=== PATIENT | female | born 1945 | race Caucasian/White ===

== ENCOUNTER 2022-12-13 08:29 | Day surgery (SDC) | payer MEDICARE, MEDICAID, SELFPAY ==
--- NOTE | 2022-12-12 10:54 | WPDANESEPPF ---
Anes - Initial Pre Proc Eval Procedure: Operation Date: 12/13/22 10:00 Proposed Procedures p Screening Colonoscopy - Butch Dumas MD Date/Time: 12/12/22 10:54 Surgeon: Butch Dumas MD Pre Op Diagnosis: Neoplasm Screening Patient Data Age: 77 Gender: F Height: 1.63 m Weight: 71.5 kg Allergies Allergy/AdvReac Type Severity Reaction Status Date / Time Penicillins Allergy Mild Unknown Verified 12/13/22 08:53 pentazocine Allergy Mild Unknown Verified 12/13/22 08:53 albuterol Allergy syncope Verified 12/13/22 08:53 aspirin Allergy Swelling Verified 12/13/22 08:53 codeine Allergy Numbness Verified 12/13/22 08:53 ibuprofen Allergy GI upset Verified 12/13/22 08:53 Sulfa (Sulfonamide Allergy Unknown Verified 12/13/22 08:53 Antibiotics) peniillin Allergy Swelling Uncoded 12/13/22 08:53 Home Medications Medication Instructions Recorded Confirmed Type magnesium oxide 400 mg PO DAILY #90 caps 11/08/22 12/13/22 Rx Acidophilus 1 pill BYMOUTH BID 11/14/22 12/13/22 History [place] XL 300 mg BYMOUTH DAILY 11/14/22 12/13/22 History cholestyramine (with sugar) 4 gram 1 ea PO BID 11/14/22 12/13/22 History powder for susp in a packet metoprolol tartrate 25 mg tablet 12.5 mg PO BID #90 tabs 11/14/22 12/13/22 Rx apixaban 5 mg tablet (Eliquis) 5 mg PO BID #60 tabs 11/20/22 12/13/22 Rx fidaxomicin 200 mg tablet See Rx Instructions PO Q12H 11/21/22 12/13/22 History insulin glargine 100 unit/mL (3 40 unit subcut QPM 11/21/22 12/13/22 History mL) subcutaneous pen coffee extract 100 mg-phosphatidyl 1 cap PO DAILY 11/28/22 12/13/22 History serine 100 mg capsule (Neuriva Original) amlodipine 5 mg tablet 5 mg PO DAILY #30 tabs 12/03/22 12/13/22 Rx clopidogrel 75 mg tablet (Plavix) 75 mg PO DAILY #30 tabs 12/03/22 12/13/22 Rx pravastatin 40 mg tablet 40 mg PO DAILY 30 days #30 tabs 12/03/22 12/13/22 Rx venlafaxine 75 mg capsule,extended 75 mg PO DAILY #90 caps 12/04/22 12/13/22 Rx release 24 hr glipizide 5 mg tablet See Rx Instructions PO DAILY #90 12/05/22 12/13/22 Rx tabs fluconazole 150 mg tablet 150 mg PO ONCE #2 tabs 12/07/22 12/13/22 Rx (Diflucan) Patient hx anesthesia problems: none Family hx anesthesia problems: none Results Review: All pre-operative results and documents have been reviewed as part of the pre-operative evaluation. [facility] Past Medical History Medical History (Updated 12/12/22 @ 10:57 by Maxime Mei DO) Acid reflux Anxiety Arthritis Chronic headaches Diabetes HTN (hypertension) Hypomagnesemia Mini stroke (~2012) Screening for colon cancer TIA (transient ischemic attack) 2012 Surgical History Surgical History H/O: hysterectomy (~1979) Family History Family History Father Hypertension Mother Breast cancer Social History Social History Smoking status: Former smoker Tobacco type: cigarettes Additional smoking assessment comments: quit smoking about 30 years ago Alcohol intake: current Alcohol use details: very rarely Substance use: never Substance use type: does not use Lack of Transportation: No Lack of Food: Never True Current Housing: I Have Housing Concerned About Future Housing: No Difficulty Paying Gas/Electric Bills: No Difficulty Paying for Meds: No Currently Unemployed: No Difficulty w/ Childcare or Family Care: No Living arrangements: alone Occupation/Education: retired Gender identity (if verbalized by the patient): Female Spiritual care concerns: No Agree to blood products: Yes Anes - [place] Final PreProcedure Day of Procedure 12/12/22 10:54 Patient weight: overweight Heart: regular rate and rhythm Lungs: clear to auscultation Airway: Mallampati scale class II Neurological: alert and oriented Last oral intake: >/= 8 ho
[2022-12-13 09:04] VITALS: BP 110/59; PULSE 93; RESP 18; TEMP 36.8; O2SAT 99
--- NOTE | 2022-12-13 09:17 | PM.HPGS ---
History of Present Illness History of Present Illness Consent: Risks, benefits, and alternatives have been discussed and questions answered. Patient agrees to proceed with procedure. Chief complaint: Neoplasm Screening Narrative: Ailyn Neff is a 77 year old female Referred by primary care service for screening colonoscopy . Patient gives a history of moving to this area in June of 2022. Since that time she has been hospitalized 6 or 7 times. Patient reports that in August she developed diverticulitis and was hospitalized at [facility] in [place]. She was treated with antibiotics. She subsequently was readmitted the hospital 2 weeks later with C difficile colitis. This subsequently relapsed and she was hospitalized once again. Subsequent to this she was identified as having a pulmonary embolus. Patient now is on Eliquis anticoagulation. The patient presents today for screening exam because of her history of diverticulitis. Patient reports her bowel habits have been back to normal and she has felt back to her baseline over the last 3 weeks. History is noncontributory.. Review of Systems Review of Systems: Review of systems noncontributory. [facility] Past Medical History Medical History (Updated 12/12/22 @ 10:57 by Maxime Mei, ) Acid reflux Anxiety Arthritis Chronic headaches Diabetes HTN (hypertension) Hypomagnesemia Mini stroke (~2012) Screening for colon cancer TIA (transient ischemic attack) 2012 Surgical History Surgical History H/O: hysterectomy (~1979) Family History Family History Father Hypertension Mother Breast cancer Social History Social History Smoking status: Former smoker Tobacco type: cigarettes Additional smoking assessment comments: quit smoking about 30 years ago Alcohol intake: current Alcohol use details: very rarely Substance use: never Substance use type: does not use Lack of Transportation: No Lack of Food: Never True Current Housing: I Have Housing Concerned About Future Housing: No Difficulty Paying Gas/Electric Bills: No Difficulty Paying for Meds: No Currently Unemployed: No Difficulty w/ Childcare or Family Care: No Living arrangements: alone Occupation/Education: retired Gender identity (if verbalized by the patient): Female Spiritual care concerns: No Agree to blood products: Yes Meds Home Medications and Allergies Home Medications Medication Instructions Recorded Confirmed Type magnesium oxide 400 mg PO DAILY #90 caps 11/08/22 12/13/22 Rx Acidophilus 1 pill BYMOUTH BID 11/14/22 12/13/22 History [place] XL 300 mg BYMOUTH DAILY 11/14/22 12/13/22 History cholestyramine (with sugar) 4 gram 1 ea PO BID 11/14/22 12/13/22 History powder for susp in a packet metoprolol tartrate 25 mg tablet 12.5 mg PO BID #90 tabs 11/14/22 12/13/22 Rx apixaban 5 mg tablet (Eliquis) 5 mg PO BID #60 tabs 11/20/22 12/13/22 Rx fidaxomicin 200 mg tablet See Rx Instructions PO Q12H 11/21/22 12/13/22 History insulin glargine 100 unit/mL (3 40 unit subcut QPM 11/21/22 12/13/22 History mL) subcutaneous pen coffee extract 100 mg-phosphatidyl 1 cap PO DAILY 11/28/22 12/13/22 History serine 100 mg capsule (Neuriva Original) amlodipine 5 mg tablet 5 mg PO DAILY #30 tabs 12/03/22 12/13/22 Rx clopidogrel 75 mg tablet (Plavix) 75 mg PO DAILY #30 tabs 12/03/22 12/13/22 Rx pravastatin 40 mg tablet 40 mg PO DAILY 30 days #30 tabs 12/03/22 12/13/22 Rx venlafaxine 75 mg capsule,extended 75 mg PO DAILY #90 caps 12/04/22 12/13/22 Rx release 24 hr glipizide 5 mg tablet See Rx Instructions PO DAILY #90 12/05/22 12/13/22 Rx tabs fluconazole 150 mg tablet 150 mg PO ONCE #2 tabs 12/07/22 12/13/22 Rx (Diflucan) Allergies Allergy/AdvReac Type
[2022-12-13] MEDS: LACTATED RINGERS 1,000 ML 150 ML IV CONT (09:27)
[2022-12-13 09:33] LABS: Glucose Point of Care 130 mg/dl (65-105)
[2022-12-13 10:20] VITALS: BP 82/53; PULSE 82; RESP 16; O2SAT 92
[2022-12-13 10:30] VITALS: BP 108/64; PULSE 81; RESP 18; O2SAT 98
[2022-12-13 10:40] VITALS: BP 100/78; PULSE 78; RESP 18; O2SAT 100
--- NOTE | 2022-12-13 11:07 | SUR.PHASEII ---
LATE NOTE, 1021; PT ARRIVED INTO OP WITH DR EL. PT COUGHING, LARGE AMT CLEAR SECRETIONS FROM NOSE AND MOUTH. PT SLEEPY. PT ORAL SUCTIONED. DAUGHTER AT BEDSIDE. 1030; PT AWAKE. DRINKING APPLE JUICE. OCCASIONAL COUGH. VERY LITTLE SECRETIONS NOW. PT STATES EVERY TIME I HAVE ANESTHESIA I WAKE UP WITH A COUGH AND LOTS OF CLEAR SPUTUM . DR EL AWARE. 1100; PT AWAKE AND ALERT. NO LONGER COUGHING. READY FOR DISCHARGE
--- NOTE | 2022-12-13 12:35 | WPDANESPN ---
Anes - Prog Note Post-Op Date/Time: 12/13/22 12:35 Cardiovascular status: normal Respiratory status: normal Airway patency: baseline Mental status: baseline Post-Op hydration status: normal Vital Signs: Last Vital Signs Temp 36.8 C 12/13/22 09:04 Pulse 78 12/13/22 10:40 Resp 18 12/13/22 10:40 BP 100/78 12/13/22 10:40 Pulse Ox 100 12/13/22 10:40 O2 Del Method Room Air 12/13/22 10:40 Pain Score (VAS): 0 I/O: Intake & Output 12/12/22 12/13/22 12/13/22 23:59 07:59 15:59 Intake Total 300 Balance 300 12/13/22 09:30 POC Capillary Glucose 130 H Post-procedural complaints: none Patient Feedback: Patient satisfied with anesthetic care. Other Findings: Patient vital signs back to baseline. Patient denies nausea and vomiting. Patient's pain under control. Patient OK for discharge.
== END 2022-12-13 11:07 | disposition home or self-care (01) ==
PROVIDERS: PCP Physician Assistant Medical; Visit Provider Internal Medicine Gastroenterology
PROC: 0DJD8ZZ Inspection of Lower Intestinal Tract, Via Natural or Artificial Opening Endoscopic (ICD-10-PCS; CPT 45378; principal; 2022-12-13 10:00)
DX: Z12.11 Encounter for screening for malignant neoplasm of colon (principal); K57.30 Diverticulosis of large intestine without perforation or abscess without bleeding; K64.8 Other hemorrhoids
CPT/HCPCS: 45378

== ENCOUNTER 2024-09-09 09:59 | Outpatient (CLI) | payer MEDICARE, SELFPAY ==
--- NOTE | ~2024-09-09 | XR_ITS ---
XR abdomen/kub 1V Ordering provider: Jamaica Daly APRN History: . fecal incontinance . Comparison: None. FINDINGS: BOWEL: Fecal material is loaded in the colon. Nonobstructive bowel gas pattern. ORGANOMEGALY: None. SIGNIFICANT PATHOLOGIC CALCIFICATIONS: None. OTHER: No free air is seen under the diaphragm. IMPRESSION: NO ACUTE ABDOMINAL FINDINGS. Constipation. Reviewed, dictated and finalized at location A.
--- OUTSIDE RECORDS SUMMARY | 2024-09-09 10:42 | XMS_ITS | Clinical Summary ---
Author Organization [facility] Care Team Providers Care Hearing Specialist Name Role Phone Unavailable Primary Care Provider Unavailabl e Social History Tobacco Use Types Packs/Day Years Used Date Smoking Tobacco: Never Assessed Comments Unknown Sex and Gender Information Value Date Recorded Sex Assigned at Not on file Legal Sex Female 11:31 PM CDT Gender Identity Not on file Sexual Orientation Not on file Plan of Treatment Not on file
--- OUTSIDE RECORDS SUMMARY | 2024-09-09 10:42 | XMS_ITS | Continuity of Care Document ---
Author Organization [facility] [facility] Serv ices Address [address] [place] [address] Phone Care Team Providers Care Assorter Laundry Name Role Phone Samuel FITZGERALD, Ranjith Unavailable Unavailable Allergies, Adverse Reactions, Alerts Substance Reaction Status Criticality CIPROFLOXACIN HCL Hives/Skin Rash Active No Info rmation ciprofloxacin Hives/Skin Rash Active No Informat ion Sulfa (Sulfonamide Antibiotics) Active No Information albuterol passes out Active No Information ibuprofen upset stomach Active No Information codeine numbness Active No Information aspirin swells up Active No Information Penicillins swells up, hives Active No Informat ion Medications Medication Instructions Dosage Effective Dates (start - stop) Status Comments ondansetron HCl 4 mg tablet take 1 tablet by oral route 3 times every day as needed for NAUSEA 4 MG - Active Coricidin HBP Cold and Flu 2 mg-325 mg tablet TAKE ONE TAB BID X 3-5 DAYS, THEN ONE TAB Q 12 HRS PRN - Active mupirocin 2 % topical ointment apply by topical route 2 times every day a small amount to the affected area Not Available - Active chlorhexidine gluconate 4 % topical liquid APPLY TO SCALP LESIONS, LATHER, RINSE DAILY - Active Xanax 0.5 mg tablet take 1 tablet by oral route 2 times every day as needed for ANXIETY 0.5 MG - Active Plavix 75 mg tablet Take 1 tablet by mouth once daily - Active venlafaxine ER 225 mg tablet,extended release 24 hr TAKE 1 TABLET BY MOUTH ONCE DAILY IN THE MORNING AT THE SAME TIME EACH DAY WITH FOOD - Active Pravastatin Sodium 40 MG Oral Tablet Take 1 tablet by mouth once daily - Active losartan 50 mg tablet take 1 tablet by oral route every day 50 MG - Active TRULICITY (unknown strength) inject by subcutaneous route every week Not Available - Active Vitamin D3 25 mcg (1,000 unit) capsule - Active Procedures Procedure Date Rapid COVID OFFICE/OUTPATIENT VISIT, EST URINALYSIS NONAUTO W/O SCOPE OFFICE/OUTPATIENT VISIT, EST OFFICE/OUTPATIENT VISIT, EST URINALYSIS NONAUTO W/O SCOPE URINALYSIS NONAUTO W/O SCOPE OFFICE/OUTPATIENT VISIT, EST OFFICE/OUTPATIENT VISIT, EST URINALYSIS NONAUTO W/O SCOPE Rapid COVID OFFICE/OUTPATIENT VISIT, EST OFFICE/OUTPATIENT VISIT, EST Ketorolac tromethamine inj THER/PROPH/DIAG INJ, SC/IM OFFICE/OUTPATIENT VISIT, EST NURSING FACILITY CARE, INIT OFFICE/OUTPATIENT VISIT, EST OFFICE/OUTPATIENT VISIT, EST Rapid COVID RAPID STREP OFFICE/OUTPATIENT VISIT, EST OFFICE/OUTPATIENT VISIT, EST OFFICE/OUTPATIENT VISIT, EST OFFICE/OUTPATIENT VISIT, EST OFFICE/OUTPATIENT VISIT, EST OFFICE/OUTPATIENT VISIT, EST OFFICE/OUTPATIENT VISIT, EST OFFICE/OUTPATIENT VISIT, EST OFFICE/OUTPATIENT VISIT, EST OFFICE/OUTPATIENT VISIT, EST OFFICE/OUTPATIENT VISIT, EST OFFICE/OUTPATIENT VISIT, EST OFFICE/OUTPATIENT VISIT, EST OFFICE/OUTPATIENT VISIT, EST OFFICE/OUTPATIENT VISIT, EST OFFICE/OUTPATIENT VISIT, EST OFFICE/OUTPATIENT VISIT, EST OFFICE/OUTPATIENT VISIT, EST OFFICE/OUTPATIENT VISIT, EST OFFICE/OUTPATIENT VISIT, EST OFFICE/OUTPATIENT VISIT, EST URINALYSIS NONAUTO W/O SCOPE OFFICE/OUTPATIENT VISIT, EST OFFICE/OUTPATIENT VISIT, EST URINALYSIS NONAUTO W/O SCOPE URINALYSIS NONAUTO W/O SCOPE OFFICE/OUTPATIENT VISIT, EST OFFICE/OUTPATIENT VISIT, EST OFFICE/OUTPATIENT VISIT, EST OFFICE/OUTPATIENT VISIT, EST OFFICE/OUTPATIENT VISIT, EST OFFICE/OUTPATIENT VISIT, EST OFFICE/OUTPATIENT VISIT, EST OFFICE/OUTPATIENT VISIT, EST IMMUNIZATION ADMIN FLU VACCINE, 3 YRS & >, IM FLU VACCINE, 3 YRS & >, IM OFFICE/OUTPATIENT VISIT, EST OFFICE/OUTPATIENT VISIT, EST Adrenalin epinephrine inject THER/PROPH/DIAG INJ, SC/IM Methylprednisolone 80 MG inj THER/PROPH/DIAG INJ, SC/IM OFFICE/OUTPATIENT VISIT, EST OFFICE/OUTPATIENT VISIT, EST OFFICE/OUTPATIENT VISIT, EST OFFICE/OUTPATIENT VISIT, EST PREV VISIT, EST, AGE 12-17 REMOVE IMPACTED EAR WAX REMOVE IMPACTED EAR WAX OFFICE/OUTPATIENT VISIT, EST OFFICE/OUTPATIENT VISIT, EST OFFICE/OUTPATIENT VISIT, EST OFFICE/OUTPATIENT VISIT, EST OFFICE/OUTPATIENT VISIT, EST OFFICE/OUTPATIENT VISIT, EST URINALYSIS NONAUTO W/O SCOPE OFFICE/OUTPATIENT VISIT, EST CRYOTHERAPY OF SKIN OFFICE/OUTPATIENT VISIT, EST OFFICE/OUTPATIENT VISIT, EST OFFICE/OUTPATIENT VISIT, EST OFFICE/OUTPATIENT VISIT, EST OFFICE/OUTPATIENT VISIT, EST OFFICE/OUTPATIENT VISIT, EST OFFICE/OUTPATIENT VISIT, EST URINALYSIS NONAUTO W/O SCOPE OFFICE/OUTPATIENT VISIT, EST ROUTINE VENIPUNCTURE MEASURE BLOOD OXYGEN LEVEL ROUTINE VENIPUNCTURE OFFICE/OUTPATIENT VISIT, EST MEASURE BLOOD OXYGEN LEVEL OFFICE/OUTPATIENT VISIT, EST ROUTINE VENIPUNCTURE MEASURE BLOOD OXYGEN LEVEL FLU VACCINE, 3 YRS & >, IM MEASURE BLOOD OXYGEN LEVEL ROUTINE VENIPUNCTURE OFFICE/OUTPATIENT VISIT, EST FLU VACCINE, 3 YRS & >, IM OFFICE/OUTPATIENT VISIT, EST OFFICE/OUTPATIENT VISIT, EST GLUCOSE BLOOD TEST OFFICE/OUTPATIENT VISIT, EST OFFICE/OUTPATIENT VISIT, EST MEASURE BLOOD OXYGEN LEVEL OFFICE/OUTPATIENT VISIT, EST OFFICE/OUTPATIENT VISIT, EST OFFICE/OUTPATIENT VISIT, EST ROUTINE VENIPUNCTURE OFFICE/OUTPATIENT VISIT, EST MEASURE BLOOD OXYGEN LEVEL OFFICE/OUTPATIENT VISIT, EST Advance Directives Directive Yes / No Effective Date File Name No Information Encounters Encounter Description Practice Location Reason(s) For Visit Diagnoses Date Provider Providers Copied on Encounter [facility], [address] [place] [address], [facility], [place] tel:[phone] [place] No Information 3 Samuel Kasper. [address] [place] [address], [facility], [place]. tel:[phone] [facility], [address] [place] [address], [facility], tel:[phone] [place] Encounter for screening mammogram for malignant neoplasm of breast 3 Azra Melvin. [address] [place] [address], [address] [place] [address]. tel: [phone] OFFICE/OUTPA TIENT VISIT, [facility], [address] [place] [address], [facility], tel:[phone] [place] 6 MO F/U (chief complaint) Contact With And (suspected) Exposure To COVID-19Acute upper respiratory infection, unspecifiedVi ral gastroenterit isAnticipator y grieving 3 Azra Melvin. [address] [place] [address], [address] [place] [address]. tel:[phone] OFFICE/OUTPA TIENT VISIT, [facility], [address] [place] [address], [facility], tel:[phone] [place] UTI (chief complaint)o ther (chief complaint) PyuriaVaginal itchingUrinar y symptom or signGlucosuri aType 2 diabetes mellitus without complication, unspecified whether supervisor intermediates insulin use 3 Samuel Kasper. [address] [place] [address], [facility], . tel: [phone] OFFICE/OUTPA TIENT VISIT, [facility], [address] [place] [address], [facility], tel:[phone] [place] Cold symptoms (chief complaint)U TI (chief complaint) Acute UTI (urinary tract infection)Pos t-nasal drainageGluco suriaHypergly cemia due to diabetes mellitus 3 Paulo Knott. [address] [place] [address], [facility], . tel:[phone] OFFICE/OUTPA TIENT VISIT, [facility], [address] [place] [address], [facility], tel:[phone] [place] URINE FREQUENCY (chief complaint) Frequency of micturitionGl ucosuria 2 Jose Loretta. [address] [place] [address], [facility], . tel:[phone] [facility], [address] [place] [address], [facility], [place] tel:[phone] [place] Encounter for screening mammogram for malignant neoplasm of breast 2 Oquendo Gulam. [address] [place] [address], [facility], [place]. tel:[phone] OFFICE/OUTPA TIENT VISIT, [facility], [address] [place] [address], [facility], [place] tel:[phone] [place] UTI (chief complaint) Acute cystitis with hematuria 2 Samuel Kasper. [address] [place] [address], [facility], . tel:[phone] OFFICE/OUTPA TIENT VISIT, [facility], [address] [place] [address], [facility], [place] tel:[phone] [place] COVID SX (chief complaint) Contact With And (suspected) Exposure To COVID-19Acute viral syndromeAcute cough 2 Samuel Kasper. [address] [place] [address], [facility], [place]. tel:[phone] OFFICE/OUTPA TIENT VISIT, [facility], [address] [place] [address], [facility], tel:[phone] [place] SPOT ON HEAD (chief complaint) Dermatitis 2 Oquendo Gulam. [address] [place] [address], [facility], [place]. tel:[phone] [facility], [address] [place] [address], [facility], [place] tel:[phone] [place] Bulging of lumbar intervertebra l discEssential (primary) hypertensionP ain in thoracic spineRadiculo mo of lumbar regionSleep apneaType 2 diabetes mellitus with other neurologic complication, with long-term current use of insulin 2 Oquendo Gulam. [address] [place] [address], [facility], [place]. tel:[phone] OFFICE/OUTPA TIENT VISIT, [facility], [address] [place] [address], [facility], [place] tel:[phone] [place] BACK PAIN (chief complaint)p hq-9 (chief complaint) Anxiety in acute stress reactionPain in thoracic spineEssentia l (primary) hypertensionT ype 2 diabetes mellitus with other neurologic complication, with long-term current use of insulinRadicu lopathy of lumbar regionHx of sleep apnea 2 Oquendo Gulam. [address] [place] [address], [facility], [place]. tel:[phone] [facility], [address] [place] [address], [facility], [place] tel:[phone] [place] No Information 2 Oquendo Ngozi. [address] [place] [address], [facility], [place]. tel:[phone] [facility] [address] [place] [address], [facility], [place] tel:[phone] [facility] HPI (chief complaint) Urinary tract infection, site not specifiedOthe r sleep apneaMixed hyperlipidemi aEssential (primary) hypertension 2 Cecy Mott. [address] [place] [address], [facility], [place]. tel:[phone] OFFICE/OUTPA TIENT VISIT, [facility], [address] [place] [address], [facility], [place] tel:[phone] [place] PRE-OP EXAM (chief complaint) Eyelid lesionEssenti al (primary) hypertensionT ype 2 diabetes mellitus with other neurologic complication, with long-term current use of insulinUnspec ified injury of left ankle, initial encounterPre- op evaluationHx of chest pain 2 Oquendo Gulam. [address] [place] [address], [facility], [place]. tel:[phone] OFFICE/OUTPA TIENT VISIT, [facility], [address] [place] [address], [address] [place] [address] tel:[phone] [place] elevated BP (chief complaint) Anxiety in acute stress reactionChest pain, unspecifiedEs sential (primary) hypertensionT ype 2 diabetes mellitus with other neurologic complication, with long-term current use of insulin Jul-0 2 Oquendo Gulam. [address] [place] [address], [address] [place] [address]. tel:[phone] [facility], [address] [place] [address], [facility], tel:[phone] [place] ANXIETY (chief complaint) Anxiety disorder, unspecified 2 Oquendo Gulam. [address] [place] [address], [address] [place] [address]. tel:[phone] OFFICE/OUTPA TIENT VISIT, EST [facility], [address] [place] [address], [address] [place] [address] tel:[phone] [place] COVID SX (chief complaint)S ORE THROAT (chief complaint)C OUGH (chief complaint)E AR PAIN (chief complaint)B GRISEL ACHES (chief complaint) Contact With And (suspected) Exposure To COVID-19Upper respiratory tract infection, unspecified type 1 No Information [facility], [address] [place] [address], [facility], tel:[phone] [place] SOB (chief complaint) SOBChest pain, unspecifiedAn xiety disorder, unspecifiedEs sential (primary) hypertensionH yperlipidemia , unspecifiedHy pomagnesemiaO ther specified diabetes mellitus without complications 1 Oquendo Gulam. [address] [place] [address], [facility], . tel:[phone] [facility], [address] [place] [address], [facility], tel:[phone] [place] Radiculopathy of lumbar regionBulging of lumbar intervertebra l disc 1 Oquendo Gulam. [address] [place] [address], [facility], . tel:[phone] OFFICE/OUTPA TIENT VISIT, [facility], [address] [place] [address], [facility], tel:[phone] [place] BACK PAIN (chief complaint) Lumbar paraspinal muscle spasmRadiculo mo of lumbar region Aug-2 1 Oquendo Gulam. [address] [place] [address], [address] [place] [address]. tel:[phone] OFFICE/OUTPA TIENT VISIT, [facility], [address] [place] [address], [facility], tel:[phone] [place] HIGH BLOOD SUGAR (chief complaint) Essential (primary) hypertensionH yperglycemiaH ypomagnesemia Uncontrolled type 2 diabetes mellitus with hyperglycemia Non-compliant patientAnxiet y disorder, unspecifiedEn counter for screening mammogram for malignant neoplasm of breast 1 Oquendo Gulam. [address] [place] [address], [address] [place] [address]. tel:[phone] OFFICE/OUTPA TIENT VISIT, [facility], [address] [place] [address], [facility], tel:[phone] [place] PAINFUL BUMPS ON HEAD AND BODY (chief complaint) Dermatitis Fe- 1 Oquendo Gulam. [address] [place] [address], [facility], . tel:[phone] OFFICE/OUTPA TIENT VISIT, [facility], [address] [place] [address], [facility], tel:[phone] [place] rash (chief complaint) Folliculitis of faceEncounter for screening mammogram for malignant neoplasm of breast Sep-0 0 Oquendo Gulam. [address] [place] [address], [facility], . tel:[phone] OFFICE/OUTPA TIENT VISIT, [facility], [address] [place] [address], [facility], tel:[phone] [place] Diabetes (chief complaint) Essential (primary) hypertensionH yperlipidemia , unspecifiedOt her specified diabetes mellitus without complications Hypomagnesemi aColonic inflammatory bowel disease unclassified Aug-0 4-202 0 Oquendo Gulam. [address] [place] [address], [facility], . tel:[phone] OFFICE/OUTPA TIENT VISIT, [facility], [address] [place] [address], [facility], tel:[phone] [place] ER F/U (chief complaint) Acute bronchitis, unspecifiedCo ugh productive of clear sputumRSV bronchitisSin us drainage Jul-0 9-202 0 Oquendo Gulam. [address] [place] [address], [address] [place] [address]. tel:[phone] OFFICE/OUTPA TIENT VISIT, [facility], [address] [place] [address], [facility], tel: [phone] [place] IP F/U (chief complaint) DiarrheaSynco pe and collapseHx of ventricular tachycardiaRS V bronchitisHos pital discharge follow-up Fe-2 4- 0 Oquendo Gulam. [address] [place] [address], [facility], . tel:[phone] OFFICE/OUTPA TIENT VISIT, [facility], [address] [place] [address], [facility], tel: [phone] [place] COUGH (chief complaint)C ONGESTED (chief complaint) RSV bronchitisCou gh productive of clear sputumRSV exposureMid back pain on left side Feb-1 0-202 0 Oquendo Gulam. [address] [place] [address], [facility], . tel: [phone] OFFICE/OUTPA TIENT VISIT, [facility], [address] [place] [address], [facility], tel: [phone] [place] Sore throat (chief complaint) RSV exposureRSV bronchitis Fe-0 5-202 0 Oquendo Gulam. [address] [place] [address], [facility], . tel:[phone] [facility], [address] [place] [address], [facility], tel:[phone] [place] Encounter for screening mammogram for malignant neoplasm of breast 0 Oquendo Gulam. [address] [place] [address], [facility], . tel: [phone] [facility], [address] [place] [address], [facility], [place] tel: [phone] [place] Hyperglycemia Hypomagnesemi a 9 Oquendo Gulam. [address] [place] [address], [facility], . tel: [phone] OFFICE/OUTPA TIENT VISIT, [facility], [address] [place] [address], [facility], [place] tel: [phone] [place] UTI (chief complaint) Urinary tract infection, site not specifiedWeak ness 9 Oquendo Gulam. [address] [place] [address], [facility], . tel: [phone] OFFICE/OUTPA TIENT VISIT, [facility], [address] [place] [address], [facility], tel: [phone] [place] PRE OP PHYS (chief complaint) Right-sided lacunar infarctionSle ep apneaType 2 diabetes mellitus with other neurologic complication, with long-term current use of insulinTear of medial meniscus of left knee, current, unspecified tear type, subsequent encounterPre- op evaluationHx of essential hypertension 9 Oquendo Gulam. [address] [place] [address], [facility], . tel: [phone] OFFICE/OUTPA TIENT VISIT, [facility], [address] [place] [address], [facility], [place] tel: [phone] [place] LEG PAIN (chief complaint) Acute pain of left lower extremityType 2 diabetes mellitus with other neurologic complication, with long-term current use of insulin 9 Samuel Hook. [address] [place] [address], [facility], [place]. tel: [phone] OFFICE/OUTPA TIENT VISIT, [facility], [address] [place] [address], [facility], [place] tel: [phone] [place] FOLLOW UP (chief complaint) Right-sided lacunar infarction 9 Oquendo Gulam. [address] [place] [address], [facility], . tel:[phone] [facility], [address] [place] [address], [facility], tel:[phone] [place] Essential (primary) hypertension 9 Toney Yessica. [address] [place] [address], [facility], . tel:[phone] OFFICE/OUTPA TIENT VISIT, [facility], [address] [place] [address], [facility], tel: [phone] [place] LT ANKLE PAIN (chief complaint) Unspecified injury of left ankle, initial encounterInju ry of left lower leg, initial encounterTine a corporis 8 Oquendo Gulam. [address] [place] [address], [facility], . tel: [phone] [facility], [address] [place] [address], [facility], tel: [phone] [place] Encounter for screening mammogram for malignant neoplasm of breast 8 Oquendo Gulam. [address] [place] [address], [facility], . tel: [phone] OFFICE/OUTPA TIENT VISIT, [facility], [address] [place] [address], [facility], tel: [phone] [place] STOMACH PROB (chief complaint) Generalized muscle weaknessColon ic inflammatory bowel disease unclassified 8 Oquendo Gulam. [address] [place] [address], [facility], [place]. tel:[phone] OFFICE/OUTPA TIENT VISIT, [facility], [address] [place] [address], [facility], [place] tel:[phone] [place] spot on back (chief complaint) Skin lesionAllergi c rhinitis due to other allergic trigger, unspecified seasonalityTi dariana corporis 8 Oquendo Gulam. [address] [place] [address], [facility], [place]. tel:[phone] OFFICE/OUTPA TIENT VISIT, [facility], [address] [place] [address], [facility], [place] tel: [phone] [place] CHILLS (chief complaint)C OUGH (chief complaint)L IGHT HEADED (chief complaint) DizzinessCoug hBack painUrinary tract infection, site not specified 8 Azra Melvin. [address] [place] [address], [facility], [place]. tel:[phone] OFFICE/OUTPA TIENT VISIT, [facility], [address] [place] [address], [facility], [place] tel: [phone] [place] BACK PAIN (chief complaint) Strain of fascia of lower back, initial encounter 8 Samuel Hook. [address] [place] [address], [facility], . tel:[phone] OFFICE/OUTPA TIENT VISIT, [facility], [address] [place] [address], [facility], [place] tel: [phone] [facility] lab followup (chief complaint) Essential (primary) hypertensionH yperlipidemia , unspecifiedPo stmenopausal status NOS 8 Taqueria Mcmanus. [address] [place] [address], [facility], . tel:[phone] OFFICE/OUTPA TIENT VISIT, [facility], [address] [place] [address], [facility], [place] tel: [phone] [facility] uti (chief complaint) UTI 8 Taqueria Mcmanus. [address] [place], [facility], [place]. tel:[phone] OFFICE/OUTPA TIENT VISIT, [facility], [address] [place] [address], [facility], [place] tel: [phone] [facility] Cold symptoms (chief complaint) Common cold 7 Taqueria [address] [place], [facility], [place]. tel:[phone] OFFICE/OUTPA TIENT VISIT, [facility], [address] [place] [address], [facility], [place] tel: [phone] [facility] UTI (chief complaint) UTIOther specified diabetes mellitus without complications Dysuria Taqueria Mcmanus. [address] [place] [address], [facility], [place]. tel:[phone] [facility], [address] [place] [address], [facility], [place] tel:[phone] [facility] Encounter for screening mammogram for malignant neoplasm of breast Taqueria Mcmanus. [address] [place] [address], [facility], [place]. tel:[phone] OFFICE/OUTPA TIENT VISIT, [facility], [address] [place] [address], [facility], [place] tel: [phone] [facility] UTI (chief complaint) Essential (primary) hypertensionU TI 7 Taqueria Mcmanus. [address] [place] [address], [facility], [place]. tel:[phone] OFFICE/OUTPA TIENT VISIT, [facility], [address] [place] [address], [facility], [place] tel: [phone] [place] Sinus symptoms (acute) (chief complaint) Acute maxillary sinusitis, unspecified 7 Gabbi Boledn. [address] [place] [address], [place]. tel: [phone] OFFICE/OUTPA TIENT VISIT, [facility], [address] [place] [address], [facility], [place] tel: [phone] [facility] needs referral (chief complaint) Trigger finger 7 Taqueria Mcmanus. [address] [place] [address], [facility], [place]. tel:[phone] OFFICE/OUTPA TIENT VISIT, [facility], [address] [place] [address], [address], [place] tel: [phone] [facility] Hand pain (chief complaint) Pain in joints of left hand 3 7 Taqueriasilvana Mcmanus. [address], [place], [facility], [place]. tel:[phone] OFFICE/OUTPA TIENT VISIT, [facility], [address] [place] [address], [facility], [place] tel:[phone] [place] cough (chief complaint) Acute bronchitis, unspecified Feb-2 5-201 7 Toney Yessica. [address] [place] [address], [address], [place]. tel:[phone] OFFICE/OUTPA TIENT VISIT, [facility], [address] [place] [address], [facility], [place] tel:[phone] [facility] Cough (chief complaint) Acute bronchitis, unspecifiedPo stmenopausal status NOSEncounter for screening for malignant neoplasm of colon 0 7 Taqueria [place]. [address], [place], [facility], [place]. tel:[phone] OFFICE/OUTPA TIENT VISIT, [facility], [address] [place] [address], [facility], [place] tel:[phone] [facility] rectal lump (chief complaint) Thrombosed hemorrhoid 7 Taqueriasilvana Mcmanus. [address], [facility], [place]. tel:[phone] [facility], [address] [place] [address], [address], [place] tel:[phone] [facility] Gustatory sweating Feb-2 0-201 6 Lema Sudhir. [address] [place], [address]. tel:[phone] OFFICE/OUTPA TIENT VISIT, [facility], [address] [place] [address], [address], [place] tel:[phone] [facility] labs (chief complaint) Essential (primary) hypertensionH yperlipidemia , unspecifiedMe [place] loss of unknown cause Oct-0 6-201 6 Lema Sudhir. [address] [place], [address]. tel:[phone] OFFICE/OUTPA TIENT VISIT, [facility], [address] [place] [address], [address], [place] tel:[phone] [facility] check up (chief complaint)m ed refills (chief complaint)F divina Vaccine (chief complaint) Encounter for immunizationM oderate single current episode of major depressive disorderMemor y loss of unknown causeGynecolo gic disorderEssen tial (primary) hypertensionH yperlipidemia , unspecified 6 Lema Sudhir. [address] [place], [address]. tel:[phone] OFFICE/OUTPA TIENT VISIT, [facility], [address] [place] [address], [address], [place] tel:[phone] [facility] allergic reaction (chief complaint) Anaphylactic shock, unspecified, initial encounter 6 Taqueria Mcmanus. [address] [place] [address], [address], [place]. tel:[phone] OFFICE/OUTPA TIENT VISIT, [facility], [address] [place] [address], [address], [place] tel:[phone] [facility] pre op for catarct (chief complaint)v aginal itching (chief complaint) Candidiasis of vulva and vaginaEncount er for other preprocedural examinationCa taract 6 Lemajoshua Odelln. [address] [place], [address]. tel:[phone] OFFICE/OUTPA TIENT VISIT, [facility], [address] [place] [address], [address], [place] tel:[phone] [facility] hospital f/u (chief complaint)d epression (chief complaint) Sleep apneaToxic effect of carbon dioxide, undetermined, sequela 6 Lemajoshua Odelln. [address] [place], [address]. tel:[phone] OFFICE/OUTPA TIENT VISIT, [facility], [address] [place] [address], [address], [place] tel:[phone] [facility] Cold symptoms (chief complaint) Other acute sinusitisRale s May-0 9-201 6 Taqueria [place]manus. [address] [place], [address], [place]. tel:[phone] [facility], [address] [place] [address], [address], [place] tel:[phone] [facility] Major depressive disorder, single episode, unspecified Apr-0 5-201 6 Taqueria [place]manus. [address] [place], [address], [place]. tel:[phone] OFFICE/OUTPA TIENT VISIT, [facility], [address] [place] [address], [address], [place] tel:[phone] [facility] Cold symptoms (chief complaint) Acute bronchitis, unspecified Mar-2 2-201 6 Pita Peguero. [address], [place], [address]. tel:[phone] PREV VISIT, [facility], AGE 12-17 [facility], [address] [place] [address], [address], [place] tel:[phone] [facility] pre op phys (chief complaint) Encounter for screening mammogram for malignant neoplasm of breastEncount er for screening for malignant neoplasm of colonOther specified diabetes mellitus without complications Encounter for other preprocedural examination Mar-0 8-201 6 Taqueria [place]manus. [address] [place], [address], [place]. tel:[phone] [facility], [address] [place] [address], [address], [place] tel:[phone] [place] Encounter for screening mammogram for cancer of breast Nov-3 0-201 5 Toney Yessica. [address] [place] [address], [address], [place]. tel:[phone] OFFICE/OUTPA TIENT VISIT, [facility], [address] [place] [address], [address], [place] tel:[phone] [facility] Cold symptoms (chief complaint)d ecreased hearing (chief complaint) Acute bronchitisCer umen impaction Jan- 5 Pita Peguero. [address] [place], [address]. tel:[phone] OFFICE/OUTPA TIENT VISIT, [facility], [address] [place] [address], [address], [place] tel:[phone] [facility] Sinus symptoms (acute) (chief complaint)y east infection (chief complaint)A nxiety (chief complaint) Screening colonoscopySc reening mammogramCand idiasis of skin and nailsAcute sinusitisAnxi ety 0 5 Taqueria Mcmanus. [address] [place], [address], [place]. tel:[phone] OFFICE/OUTPA TIENT VISIT, [facility], [address] [place] [address], [facility], [place] tel:[phone] [facility] problem with inside of mouth (chief complaint) Herpetic stomatitisCut aneous yeast infection 5 Pita Peguero. [address] [place], [address]. tel:[phone] OFFICE/OUTPA TIENT VISIT, [facility], [address] [place] [address], [address], [place] tel:[phone] [place] er follow up (chief complaint) Chronic bronchitis Jul-2 5 No Information OFFICE/OUTPA TIENT VISIT, [facility], [address] [place] [address], [address], [place] tel:[phone] [place] FOLLOW UP ER VISIT (chief complaint) Chronic diarrheaPleur isy 4 No Information OFFICE/OUTPA TIENT VISIT, [facility], [address] [place] [address], [address], [place] tel:[phone] [facility] sores in mouth (chief complaint) Oral candidiasis 4 No Information OFFICE/OUTPA TIENT VISIT, [facility], [address] [place] [address], [address], [place] tel: [phone] [facility] Sore throat (chief complaint)s ore gums (chief complaint) Urinary Tract InfectionHerp es simplex 4 No Information OFFICE/OUTPA TIENT VISIT, [facility], [address] [place] [address], [address], [place] tel: [phone] [facility] freeze spots (chief complaint) Actinic keratosis Jan- 4 No Information [facility], [address] [place] [address], [facility], [place] tel: [phone] [facility] Subjective tinnitus Jan- 4 No Information OFFICE/OUTPA TIENT VISIT, [facility], [address] [place] [address], [facility], [place] tel: [phone] [facility] ear complaints (chief complaint)R rachel (chief complaint) Subjective tinnitusActin ic keratosis 4 No Information OFFICE/OUTPA TIENT VISIT, [facility], [address] [place] [address], [facility], [place] tel: [phone] [facility] rash under breast (chief complaint) Yeast infection of the skinHot flashes 4 No Information OFFICE/OUTPA TIENT VISIT, [facility], [address] [place] [address], [facility], [place] tel:[phone] [place] f/u on thumb (chief complaint) Benign essential hypertensionD iabetes mellitusHyper lipidemiaUnsp ecified disorder of skin and subcutaneous tissue 3 No Information OFFICE/OUTPA TIENT VISIT, [facility], [address] [place] [address], [facility], [place] tel:[phone] [place] back pain (chief complaint)s kin sores (chief complaint) Back painSkin lesion of back 3 Francine Hinojosa. [address] [place] [address], [facility], [place]. tel:[phone] OFFICE/OUTPA TIENT VISIT, [facility], [address] [place] [address], [address], [place] tel:[phone] [place] SOB (chief complaint)s ore throat (chief complaint) URI, acute 3 No Information OFFICE/OUTPA TIENT VISIT, [facility], [address] [place] [address], [address], [place] tel:[phone] [place] STOMACH PAIN (chief complaint) Acute gastritis 3 No Information OFFICE/OUTPA TIENT VISIT, [facility], [address] [place] [address], [address], [place] [phone] [facility] DM/HTN (chief complaint)U TI (chief complaint) Diabetes mellitusBenig n essential hypertensionH yperlipidemia Urinary Tract Infection 3 Shobha Chambers. [address], [place], [facility], [place]. tel:[phone] [place] [address] Services, [address] [place] [address], [address], [place] [phone] [facility] (chief complaint) Diabetes mellitusHyper tension, Benign 2 Shobha Chambers. [address] [place], [address], [place]. 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 2 No Information OFFICE/OUTPA TIENT VISIT, [facility], [address] [place] [address], [address], [place] [phone] [facility], talk to (chief complaint) Diabetes mellitusBenig n essential hypertensionC arpal tunnel syndrome 2 No Information [facility], [address] [place] [address], [facility], tel:[phone] [facility] F/U ER visit (chief complaint) Other specified disorders of liverConstipa tion, unspecifiedCo nstipation, unspecified 2 No Information OFFICE/OUTPA TIENT VISIT, [facility], [address] [place] [address], [facility], tel:[phone] [facility] f/ hosp. (chief complaint) Constipation, unspecifiedUn specified internal derangement of kneeCelluliti s and abscess of trunk 2 No Information [facility], [address] [place] [address], [facility], tel:[phone] [facility] labs (chief complaint)t alk to (chief complaint) Diabetes mellitusCough 2 No Information [facility], [address] [place] [address], [facility], [phone] [facility] stomach problems (chief complaint) Acute gastritis with hemorrhage 2 No Information [facility], [address] [place] [address], [facility], tel:[phone] [facility] pre-op physical, congestion (chief complaint) Acute bronchitis 1 No Information [facility], [address] [place] [address], [facility], tel:[phone] [facility] flu shot (chief complaint) Contact dermatitis and other eczema, unspecified cause 1 No Information [facility], [address] [place] [address], [facility], tel:[phone] [facility] talk about diabetes (chief complaint) Diabetes mellitusDiabe chanell mellitusDepre ssive disorder, not elsewhere classified 1 No Information [facility], [address] [place] [address], [address], [place] tel:[phone] [facility] pre-op physical (chief complaint) Diabetes mellitusDiabe chanell mellitusOther disorders of eyelid 1 No Information [facility], [address] [place] [address], [address], [place] tel:[phone] [facility] lab test (chief complaint) Diabetes mellitusBenig n essential hypertension 1 No Information OFFICE/OUTPA TIENT VISIT, [facility], [address] [place] [address], [address], [place] tel:[phone] [facility] talk about diabetes (chief complaint) Diabetes mellitusBenig n essential hypertensionA cute suppurative otitis media without spontaneous rupture of eardrum 0 No Information [facility], [address] [place] [address], [facility], [place] tel:[phone] [facility] flu shot (chief complaint) No Information 0 No Information OFFICE/OUTPA TIENT VISIT, [facility], [address] [place] [address], [facility], [place] [phone] [facility] pre-op physical (chief complaint) Chalazion 0 No Information OFFICE/OUTPA TIENT VISIT, [facility], [address] [place] [address], [address], [place] [phone] [facility] check eye (chief complaint)d iabetes (chief complaint) Diabetes mellitusBenig n essential hypertensionC halazion 0 No Information OFFICE/OUTPA TIENT VISIT, [facility], [address] [place] [address], [address], [place] [phone] [facility] eye red/swollen (chief complaint) Diabetes mellitusBenig n essential hypertensionA cute conjunctiviti s 0 No Information OFFICE/OUTPA TIENT VISIT, [facility], [address] [place] [address], [address], [place] tel:[phone] [facility] f/u cpap (chief complaint) Diabetes mellitusBenig n essential hypertensionO rganic sleep apnea 0 No Information OFFICE/OUTPA TIENT VISIT, [facility], [address] [place] [address], [address], [place] tel:[phone] [facility] sick (chief complaint) Diabetes mellitusBenig n essential hypertensionC hest pain 0 No Information OFFICE/OUTPA TIENT VISIT, [facility], [address] [place] [address], [address], [place] tel:[phone] [facility] f/u test (chief complaint) Diabetes mellitusBenig n essential hypertensionD iabetes mellitusOrgan ic sleep apnea 0 No Information OFFICE/OUTPA TIENT VISIT, [facility], [address] [place] [address], [facility], [place] tel:[phone] [facility] 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 (chief complaint) Diabetes mellitusBenig n essential hypertensionD iabetes mellitus September- 0 No Information [facility], [address] [place] [address], [address], [place] tel:[phone] [facility] labs (chief complaint) No Information 0 No Information OFFICE/OUTPA TIENT VISIT, [facility], [address] [place] [address], [address], [place] tel:[phone] [facility] diabetes/divina mp on neck (chief complaint) Diabetes mellitusDiabe chanell mellitusBenig n essential hypertensionB enign essential hypertensionD iabetes mellitusBenig n essential hypertension 0 No Information OFFICE/OUTPA TIENT VISIT, [facility], [address] [place] [address], [address], [place] tel:[phone] [facility] cold (chief complaint) Acute bronchitis Jul-3 0 0 No Information Family History Family Member Type Diagnosis Age At Onset Mother Problem (finding) malignant neop lasm of breast in first degree relative Father Problem (finding) heart attack Immunizations Vaccine Date Status Comments Flu (split) (3 yrs or older) administered Source: New Immunization Record flu (split) (3 yrs or older) administered Source: New Immunization Record flu (split) (3 yrs or older) administered Source: New Immunization Record Payers Payer name Insurance type Covered constitution party ID Marquita george(s) Medicare CI [id number] [facility] CI [id number] Social History Type Description Quantity Date Captured Comments Alcohol Use Details Unknown Caffeine Use Details Unknown Tobacco Use Status No Information Smoking Status No Information Sex Female Chief Complaint And Reason For Visit No Information Reason For Referral Reason For Referral No Information Plan Of Treatment Date Type Action Status Goal Zoster vaccine. Due on due Goal Pneumococcal Vac cine. Due on due Goal TAFE LECTURER exam. Due on due Goal Hepatitis C scre ening. Due on due Goal Tdap. Due on due Goal Medicare Wellnes s, subseq visit. Due on due Goal Zoster vaccine ( ). Due on due Goal TD Vaccine. Due on due Goal Influenza Vaccine. Due on due Goal Depression scree esa. Due on due Goal Medicare Wellness, initial v isit due Goal DEXA Scan due Goal Cognitive assess ment. Due on due Goal Unhealthy drug u se screening. Due on due Goal Breast exam. Due on 018 due Goal H&P. Due on due Goal Depression scree esa. Due on due Goal TAFE LECTURER exam. Due on due Goal Zoster vaccine ( 1st). Due on due Goal H&P. Due on due Goal Hepatitis C scre ening. Due on due Goal Influenza Vaccine. Due on due Goal DEXA Scan due Goal Cognitive assess ment. Due on due Goal Breast exam. Due on 018 due Goal Medicare Wellnes s, subseq visit. Due on due Goal Zoster vaccine. Due on due Goal Unhealthy drug u se screening. Due on due Goal TD Vaccine. Due on due Goal Tdap. Due on due Goal Medicare Wellness, initial v isit due Goal Pneumococcal Vac cine. Due on due Goal TAFE LECTURER exam. Due on due Goal Depression scree esa. Due on due Goal Medicare Wellness, initial v isit due Goal Cognitive assess ment. Due on due Goal DEXA Scan. Due on 0 due Goal Influenza Vaccine. Due on due Goal Tdap. Due on due Goal H&P. Due on due Goal Breast exam. Due on 018 due Goal TD Vaccine. Due on due Goal Zoster vaccine. Due on due Goal Pneumococcal Vac cine. Due on due Goal Medicare Wellnes s, subseq visit. Due on due Goal TAFE LECTURER exam. Due on due Goal Pneumococcal Vac cine. Due on due Goal Zoster vaccine. Due on due Goal Influenza Vaccine. Due on due Goal H&P. Due on due Goal Medicare Wellnes s, subseq visit. Due on due Goal Tdap. Due on due Goal Breast exam. Due on 018 due Goal Medicare Wellness, initial v isit due Goal Depression scree esa. Due on due Goal Cognitive assess ment. Due on due Goal DEXA Scan. Due on 0 due Goal TD Vaccine. Due on due Goal TD Vaccine. Due on due Goal Breast exam. Due on 018 due Goal Tdap. Due on due Goal TAFE LECTURER exam. Due on due Goal DEXA Scan. Due on 0 due Goal Medicare Wellness, initial v isit due Goal Depression scree esa. Due on due Goal Medicare Wellnes s, subseq visit. Due on due Goal Pneumococcal Vac cine. Due on due Goal Influenza Vaccine. Due on due Goal Cognitive assess ment. Due on due Goal Zoster vaccine. Due on due Goal H&P. Due on due Goal Tdap. Due on due Goal Pneumococcal Vac cine. Due on due Goal Zoster vaccine. Due on due Goal H&P. Due on due Goal DEXA Scan. Due on due Goal Medicare Wellness, initial v isit due Goal TD Vaccine. Due on due Goal Influenza Vaccine. Due on due Goal Breast exam. Due on 018 due Goal Medicare Wellnes s, subseq visit. Due on due Goal Depression scree esa. Due on due Goal TAFE LECTURER exam. Due on due Goal Cognitive assess ment. Due on due Goal H&P. Due on due Goal TD Vaccine. Due on due Goal Zoster vaccine. Due on due Goal Breast exam. Due on 018 due Goal Medicare Wellness, initial v isit due Goal Tdap. Due on due Goal DEXA Scan. Due on due Goal Pneumococcal Vac cine. Due on due Goal Depression scree esa. Due on due Goal Influenza Vaccine. Due on due Goal Cognitive assess ment. Due on due Goal Medicare Wellnes s, subseq visit. Due on due Goal TAFE LECTURER exam. Due on due Goal Influenza Vaccine. Due on due Goal Cognitive assess ment. Due on due Goal TAFE LECTURER exam. Due on due Goal Breast exam. Due on 018 due Goal Pneumococcal Vac cine. Due on due Goal TD Vaccine. Due on due Goal Medicare Wellnes s, subseq visit. Due on due Goal Medicare Wellness, initial v isit due Goal Depression scree esa. Due on due Goal H&P. Due on due Goal Zoster vaccine. Due on due Goal DEXA Scan. Due on due Goal Tdap. Due on due Goal TAFE LECTURER exam. Due on due Goal Tdap. Due on due Goal Pneumococcal Vac cine. Due on due Goal Breast exam. Due on 018 due Goal Depression scree esa. Due on due Goal Zoster vaccine. Due on due Goal Medicare Wellness, initial v isit due Goal DEXA Scan. Due on 0 due Goal Cognitive assess ment. Due on due Goal TD Vaccine. Due on due Goal H&P. Due on due Goal Medicare Wellnes s, subseq visit. Due on due Goal Influenza Vaccine. Due on due Goal TD Vaccine. Due on due Goal Medicare Wellnes s, subseq visit. Due on due Goal DEXA Scan. Due on 0 due Goal Pneumococcal Vac cine. Due on due Goal Tdap. Due on due Goal Depression scree esa. Due on due Goal Influenza Vaccine. Due on due Goal H&P. Due on due Goal Medicare Wellness, initial v isit due Goal TAFE LECTURER exam. Due on due Goal Breast exam. Due on 018 due Goal Zoster vaccine. Due on due Goal Cognitive assess ment. Due on due Goal Breast exam. Due on 018 due Goal Cognitive assess ment. Due on due Goal Medicare Wellnes s, subseq visit. Due on due Goal Tdap. Due on due Goal Depression scree esa. Due on due Goal Zoster vaccine. Due on due Goal TAFE LECTURER exam. Due on due Goal DEXA Scan. Due on 0 due Goal H&P. Due on due Goal Influenza Vaccine. Due on Oc due Goal Pneumococcal Vac cine. Due on due Goal TD Vaccine. Due on due Goal Medicare Wellness, initial v isit due Goal Influenza Vaccine. Due on Oc due Goal Breast exam. Due on 018 due Goal TAFE LECTURER exam. Due on due Goal Pneumococcal Vac cine. Due on due Goal Cognitive assess ment. Due on due Goal Medicare Wellness, initial v isit due Goal TD Vaccine. Due on due Goal Tdap. Due on due Goal H&P. Due on due Goal Zoster vaccine. Due on due Goal Medicare Wellnes s, subseq visit. Due on due Goal Depression scree esa. Due on due Goal DEXA Scan. Due on 0 due Goal Zoster vaccine. Due on due Goal DEXA Scan. Due on 0 due Goal H&P. Due on due Goal Breast exam. Due on 018 due Goal Pneumococcal Vac cine. Due on due Goal Tdap. Due on due Goal Cognitive assess ment. Due on due Goal Influenza Vaccine. Due on Oc due Goal Medicare Wellnes s, subseq visit. Due on due Goal TAFE LECTURER exam. Due on due Goal Depression scree esa. Due on due Goal Medicare Wellness, initial v isit due Goal TD Vaccine. Due on due Goal Breast exam. Due on 018 due Goal TAFE LECTURER exam. Due on due Goal DEXA Scan. Due on 0 due Goal Medicare Wellness, initial v isit due Goal Zoster vaccine. Due on due Goal Tdap. Due on due Goal H&P. Due on due Goal Medicare Wellnes s, subseq visit. Due on due Goal Influenza Vaccine. Due on due Goal Depression scree esa. Due on due Goal Pneumococcal Vac cine. Due on due Goal Cognitive assess ment. Due on due Goal TD Vaccine. Due on due Goal Breast exam. Due on 018 due Goal Zoster vaccine. Due on due Goal DEXA Scan. Due on 0 due Goal Medicare Wellness, initial v isit due Goal Medicare Wellnes s, subseq visit. Due on due Goal TAFE LECTURER exam. Due on due Goal Cognitive assess ment. Due on due Goal Pneumococcal Vac cine. Due on due Goal H&P. Due on due Goal Tdap. Due on due Goal Influenza Vaccine. Due on due Goal TD Vaccine. Due on due Goal Depression scree esa. Due on due Goal Breast exam. Due on due Goal Tdap. Due on due Goal Pneumococcal Vac cine. Due on due Goal Depression scree esa. Due on due Goal DEXA Scan. Due on 0 due Goal TAFE LECTURER exam. Due on due Goal Influenza Vaccine. Due on due Goal Medicare Wellness, initial v isit due Goal H&P. Due on due Goal Zoster vaccine. Due on due Goal Medicare Wellnes s, subseq visit. Due on due Goal Cognitive assess ment. Due on due Goal TD Vaccine. Due on due Goal Medicare Wellness, initial v isit due Goal DEXA Scan. Due on 0 due Goal Breast exam. Due on 018 due Goal Depression scree esa. Due on due Goal Zoster vaccine. Due on due Goal TD Vaccine. Due on due Goal Tdap. Due on due Goal Medicare Wellnes s, subseq visit. Due on due Goal Cognitive assess ment. Due on due Goal Pneumococcal Vac cine. Due on due Goal H&P. Due on due Goal Influenza Vaccine. Due on due Goal TAFE LECTURER exam. Due on due Goal Pneumococcal Vac cine. Due on due Goal Tdap. Due on due Goal Breast exam. Due on 018 due Goal Medicare Wellnes s, subseq visit. Due on due Goal H&P. Due on due Goal Medicare Wellness, initial v isit due Goal DEXA Scan. Due on due Goal TD Vaccine. Due on due Goal TAFE LECTURER exam. Due on due Goal Depression scree esa. Due on due Goal Zoster vaccine. Due on due Goal Influenza Vaccine. Due on due Goal Cognitive assess ment. Due on due Goal Cognitive assess ment. Due on due Goal TAFE LECTURER exam. Due on due Goal Tdap. Due on due Goal Depression scree esa. Due on due Goal TD Vaccine. Due on due Goal Breast exam. Due on due Goal Pneumococcal Vac cine. Due on due Goal DEXA Scan. Due on 0 due Goal H&P. Due on due Goal Zoster vaccine. Due on due Goal Influenza Vaccine. Due on due Goal Pneumococcal Vac cine. Due on due Goal Cognitive assess ment. Due on due Goal Influenza Vaccine. Due on due Goal Tdap. Due on due Goal TD Vaccine. Due on due Goal H&P. Due on due Goal Breast exam. Due on due Goal Depression scree esa. Due on due Goal DEXA Scan. Due on 0 due Goal TAFE LECTURER exam. Due on due Goal Zoster vaccine. Due on due Goal TAFE LECTURER exam. Due on due Goal Zoster vaccine. Due on due Goal Pneumococcal Vac cine. Due on due Goal DEXA Scan. Due on 0 due Goal Breast exam. Due on 018 due Goal Cognitive assess ment. Due on due Goal Tdap. Due on due Goal H&P. Due on due Goal Depression scree esa. Due on due Goal Influenza Vaccine. Due on due Goal TD Vaccine. Due on 21 due Goal Pneumococcal Vac cine. Due on due Goal Lipid Panel. Due on 018 due Goal Influenza Vaccine. Due on due Goal Zoster vaccine. Due on due Goal Depression scree esa. Due on due Goal Cognitive assess ment. Due on due Goal Breast exam. Due on 018 due Goal TAFE LECTURER exam. Due on due Goal Colonoscopy. Due on 026 due Goal DEXA Scan. Due on 0 due Goal H&P. Due on due Goal Tdap. Due on due Goal TD Vaccine. Due on 21 due Goal Cognitive assess ment. Due on due Goal DEXA Scan. Due on 0 due Goal Breast exam. Due on 018 due Goal Tdap. Due on due Goal Zoster vaccine. Due on due Goal Pneumococcal Vac cine. Due on due Goal Colonoscopy. Due on 026 due Goal Depression scree esa. Due on due Goal TD Vaccine. Due on due Goal H&P. Due on due Goal TAFE LECTURER exam. Due on due Goal Influenza Vaccine. Due on Oc due Goal Lipid Panel. Due on due Goal Influenza Vaccine. Due on Oc due Goal Pneumococcal Vac cine. Due on due Goal TAFE LECTURER exam. Due on due Goal Breast exam. Due on due Goal Depression scree esa. Due on due Goal Cognitive assess ment. Due on due Goal Colonoscopy. Due on due Goal Tdap. Due on due Goal H&P. Due on due Goal Zoster vaccine. Due on due Goal TD Vaccine. Due on due Goal DEXA Scan. Due on 0 due Goal Lipid Panel. Due on due Goal Depression scree esa. Due on due Goal TAFE LECTURER exam. Due on due Goal Influenza Vaccine. Due on Oc due Goal Lipid Panel. Due on due Goal DEXA Scan. Due on 0 due Goal TD Vaccine. Due on due Goal Pneumococcal Vac cine. Due on due Goal Zoster vaccine. Due on due Goal Breast exam. Due on due Goal Colonoscopy. Due on due Goal H&P. Due on due Goal Cognitive assess ment. Due on due Goal Tdap. Due on due Goal Pneumococcal Vac cine. Due on due Goal Influenza Vaccine. Due on due Goal H&P. Due on due Goal TD Vaccine. Due on 20 due Goal Zoster vaccine. Due on due Goal Mammogram. Due on 2 due Goal Cognitive assess ment. Due on due Goal DEXA Scan. Due on 0 due Goal Breast exam. Due on due Goal Colonoscopy. Due on due Goal Tdap. Due on due Goal Lipid Panel. Due on due Goal TAFE LECTURER exam. Due on due Goal Depression scree esa. Due on due Goal TAFE LECTURER exam. Due on due Goal Depression scree esa. Due on due Goal H&P. Due on due Goal Pneumococcal Vac cine. Due on due Goal Cognitive assess ment. Due on due Goal Tdap. Due on due Goal Lipid Panel. Due on due Goal Colonoscopy. Due on due Goal Influenza Vaccine. Due on due Goal Breast exam. Due on 018 due Goal TD Vaccine. Due on due Goal Mammogram. Due on 2 due Goal Zoster vaccine. Due on due Goal DEXA Scan. Due on 0 due Goal Tdap. Due on due Goal TD Vaccine. Due on due Goal Colonoscopy. Due on 026 due Goal Pneumococcal Vac cine. Due on due Goal Cognitive assess ment. Due on due Goal Depression scree esa. Due on due Goal TAFE LECTURER exam. Due on due Goal DEXA Scan. Due on 0 due Goal Zoster vaccine. Due on due Goal Lipid Panel. Due on 018 due Goal Breast exam. Due on 018 due Goal Mammogram. Due on 2 due Goal Influenza Vaccine. Due on due Goal H&P. Due on due Goal Cognitive assess ment. Due on due Goal Colonoscopy. Due on 026 due Goal Depression scree esa. Due on due Goal H&P. Due on due Goal TD Vaccine. Due on 20 due Goal Mammogram. Due on 0 due Goal Pneumococcal Vac cine. Due on due Goal TAFE LECTURER exam. Due on due Goal Tdap. Due on due Goal Zoster vaccine. Due on due Goal Lipid Panel. Due on due Goal Breast exam. Due on due Goal DEXA Scan. Due on 0 due Goal Influenza Vaccine. Due on Oc due Goal Breast exam. Due on due Goal Colonoscopy. Due on due Goal Influenza Vaccine. Due on Oc due Goal DEXA Scan. Due on 0 due Goal H&P. Due on due Goal Cognitive assess ment. Due on due Goal Lipid Panel. Due on due Goal TD Vaccine. Due on due Goal Mammogram. Due on due Goal Pneumococcal Vac cine. Due on due Goal Depression scree esa. Due on due Goal TAFE LECTURER exam. Due on due Goal Tdap. Due on due Goal Zoster vaccine. Due on due Goal Influenza Vaccine. Due on Oc due Goal Tdap. Due on due Goal Cognitive assess ment. Due on due Goal TD Vaccine. Due on due Goal Breast exam. Due on due Goal DEXA Scan. Due on 0 due Goal Colonoscopy. Due on due Goal Pneumococcal Vac cine. Due on due Goal TAFE LECTURER exam. Due on due Goal H&P. Due on due Goal Lipid Panel. Due on due Goal Depression scree esa. Due on due Goal Mammogram. Due on 0 due Goal Zoster vaccine. Due on due Goal Colonoscopy. Due on due Goal Cognitive assess ment. Due on due Goal TD Vaccine. Due on due Goal H&P. Due on due Goal TAFE LECTURER exam. Due on due Goal Tdap. Due on due Goal Zoster vaccine. Due on due Goal Mammogram. Due on 0 due Goal Depression scree esa. Due on due Goal Pneumococcal Vac cine. Due on due Goal Lipid Panel. Due on due Goal DEXA Scan. Due on 0 due Goal Breast exam. Due on due Goal Influenza Vaccine. Due on Oc due Goal TD Vaccine. Due on due Goal Colonoscopy. Due on due Goal Cognitive assess ment. Due on due Goal Tdap. Due on due Goal Depression scree esa. Due on due Goal Influenza Vaccine. Due on Oc due Goal TAFE LECTURER exam. Due on due Goal Breast exam. Due on due Goal H&P. Due on due Goal Lipid Panel. Due on due Goal Pneumococcal Vac cine. Due on due Goal DEXA Scan. Due on 0 due Goal Zoster vaccine. Due on due Goal Mammogram. Due on 0 due Goal Breast exam. Due on due Goal Mammogram. Due on 0 due Goal Depression scree esa. Due on due Goal DEXA Scan. Due on 0 due Goal TAFE LECTURER exam. Due on due Goal Zoster vaccine. Due on due Goal Pneumococcal Vac cine. Due on due Goal Tdap. Due on due Goal Lipid Panel. Due on due Goal TD Vaccine. Due on 19 due Goal Cognitive assess ment. Due on due Goal Colonoscopy. Due on due Goal Influenza Vaccine. Due on due Goal H&P. Due on due Goal Lipid Panel. Due on due Goal Cognitive assess ment. Due on due Goal Breast exam. Due on due Goal Colonoscopy. Due on due Goal Pneumococcal Vac cine. Due on due Goal Tdap. Due on due Goal H&P. Due on due Goal TD Vaccine. Due on 19 due Goal Influenza Vaccine. Due on Oc due Goal TAFE LECTURER exam. Due on due Goal DEXA Scan. Due on 0 due Goal Zoster vaccine. Due on due Goal Depression scree esa. Due on due Goal Mammogram. Due on 0 due Goal TD Vaccine. Due on 18 due Goal Cognitive assess ment. Due on due Goal Influenza Vaccine. Due on Oc due Goal Breast exam. Due on 018 due Goal DEXA Scan. Due on 0 due Goal H&P. Due on due Goal Lipid Panel. Due on 018 due Goal Colonoscopy. Due on due Goal Mammogram. Due on 0 due Goal Zoster vaccine. Due on due Goal TAFE LECTURER exam. Due on due Goal Depression scree esa. Due on due Goal Tdap. Due on due Goal Pneumococcal Vac cine. Due on due Goal TAFE LECTURER exam. Due on due Goal Zoster vaccine. Due on due Goal Colonoscopy. Due on 026 due Goal Mammogram. Due on 9 due Goal Influenza Vaccine. Due on Oc due Goal Depression scree esa. Due on due Goal H&P. Due on due Goal Pneumococcal Vac cine. Due on due Goal DEXA Scan. Due on 0 due Goal Breast exam. Due on due Goal Cognitive assess ment. Due on due Goal Lipid Panel. Due on due Goal TD Vaccine. Due on due Goal Tdap. Due on due Goal TD Vaccine. Due on due Goal Breast exam. Due on due Goal Influenza Vaccine. Due on due Goal Lipid Panel. Due on due Goal Cognitive assess ment. Due on due Goal Tdap. Due on due Goal H&P. Due on due Goal DEXA Scan. Due on 0 due Goal Colonoscopy. Due on due Goal Depression scree esa. Due on due Goal Pneumococcal Vac cine. Due on due Goal Mammogram. Due on due Goal TAFE LECTURER exam. Due on due Goal Zoster vaccine. Due on due Goal TAFE LECTURER exam. Due on due Goal Cognitive assess ment. Due on due Goal Tdap. Due on due Goal Lipid Panel. Due on due Goal Colonoscopy. Due on due Goal Zoster vaccine. Due on due Goal Mammogram. Due on 9 due Goal Pneumococcal Vac cine. Due on due Goal TD Vaccine. Due on 18 due Goal Influenza Vaccine. Due on Oc due Goal H&P. Due on due Goal Depression scree esa. Due on due Goal DEXA Scan. Due on 0 due Goal Breast exam. Due on due Goal Influenza Vaccine. Due on Oc due Goal Breast exam. Due on due Goal TD Vaccine. Due on 18 due Goal Colonoscopy. Due on due Goal H&P. Due on due Goal Lipid Panel. Due on due Goal Cognitive assess ment. Due on due Goal TAFE LECTURER exam. Due on due Goal Zoster vaccine. Due on due Goal Tdap. Due on due Goal Depression scree esa. Due on due Goal Pneumococcal Vac cine. Due on due Goal DEXA Scan. Due on 0 due Goal Mammogram. Due on due Goal Lipid Panel. Due on due Goal TAFE LECTURER exam. Due on due Goal DEXA Scan. Due on 0 due Goal Breast exam. Due on due Goal Colonoscopy. Due on due Goal Influenza Vaccine. Due on Oc due Goal TD Vaccine. Due on 18 due Goal Pneumococcal Vac cine. Due on due Goal Tdap. Due on due Goal Zoster vaccine. Due on due Goal H&P. Due on due Goal Cognitive assess ment. Due on due Goal Mammogram. Due on 9 due Goal Depression scree esa. Due on due Goal FOBT. Due on due Goal Colonoscopy. Due on 018 due Goal Cognitive assess ment. Due on due Goal Influenza Vaccine. Due on due Goal TD Vaccine. Due on 18 due Goal H&P. Due on due Goal Mammogram. Due on 9 due Goal Pneumococcal Vac cine. Due on due Goal TAFE LECTURER exam. Due on due Goal Zoster vaccine. Due on due Goal Sigmoidoscopy. Due on due Goal Depression scree esa. Due on due Goal Tdap. Due on due Goal Breast exam. Due on 018 due Goal DEXA Scan. Due on 9 due Goal Lipid Panel. Due on 018 due Goal Zoster vaccine. Due on due Goal Pneumococcal Vac cine. Due on due Goal Depression scree esa. Due on due Goal TAFE LECTURER exam. Due on due Goal Mammogram. Due on 9 due Goal Lipid Panel. Due on 018 due Goal Influenza Vaccine. Due on Oc due Goal Cognitive assess ment. Due on due Goal H&P. Due on due Goal TD Vaccine. Due on 18 due Goal DEXA Scan. Due on 9 due Goal Colonoscopy. Due on due Goal Tdap. Due on due Goal Sigmoidoscopy. Due on due Goal Breast exam. Due on due Goal FOBT. Due on due Goal Colonoscopy. Due on due Goal Tdap. Due on due Goal Breast exam. Due on due Goal Pneumococcal Vac cine. Due on due Goal TAFE LECTURER exam. Due on due Goal Zoster vaccine. Due on due Goal H&P. Due on due Goal Cognitive assess ment. Due on due Goal Influenza Vaccine. Due on Oc due Goal Sigmoidoscopy. Due on due Goal FOBT. Due on due Goal TD Vaccine. Due on 17 due Goal Influenza Vaccine. Due on Oc due Goal Tdap. Due on due Goal TAFE LECTURER exam. Due on due Goal Zoster vaccine. Due on due Goal FOBT. Due on due Goal Pneumococcal Vac cine. Due on due Goal H&P. Due on due Goal Breast exam. Due on due Goal Cognitive assess ment. Due on due Goal TD Vaccine. Due on due Goal Sigmoidoscopy. Due on due Goal Colonoscopy. Due on due Goal Tdap. Due on due Goal TAFE LECTURER exam. Due on due Goal Pneumococcal Vac cine. Due on due Goal Influenza Vaccine. Due on due Goal H&P. Due on due Goal Zoster vaccine. Due on due Goal TD Vaccine. Due on due Goal Sigmoidoscopy. Due on due Goal FOBT. Due on due Goal Cognitive assess ment. Due on due Goal Colonoscopy. Due on due Goal Breast exam. Due on due Goal Tdap. Due on due Goal TD Vaccine. Due on due Goal Cognitive assess ment. Due on due Goal Sigmoidoscopy. Due on due Goal Zoster vaccine. Due on due Goal Colonoscopy. Due on due Goal Pneumococcal Vac cine. Due on due Goal Breast exam. Due on due Goal FOBT. Due on due Goal H&P. Due on due Goal TAFE LECTURER exam. Due on due Goal H&P. Due on due Goal TAFE LECTURER exam. Due on due Goal Pneumococcal Vac cine. Due on due Goal Breast exam. Due on due Goal Sigmoidoscopy. Due on due Goal TD Vaccine. Due on due Goal FOBT. Due on due Goal Colonoscopy. Due on due Goal Zoster vaccine. Due on due Goal Tdap. Due on due Goal Cognitive assess ment. Due on due Goal Colonoscopy. Due on due Goal Sigmoidoscopy. Due on due Goal Breast exam. Due on due Goal H&P. Due on due Goal Cognitive assess ment. Due on due Goal Pneumococcal Vac cine. Due on due Goal TD Vaccine. Due on due Goal Zoster vaccine. Due on due Goal FOBT. Due on due Goal Tdap. Due on due Goal TAFE LECTURER exam. Due on due Goal TD Vaccine. Due on due Goal Colonoscopy. Due on due Goal Cognitive assess ment. Due on due Goal Tdap. Due on due Goal Pneumococcal Vac cine. Due on due Goal Sigmoidoscopy. Due on due Goal Breast exam. Due on due Goal Zoster vaccine. Due on due Goal H&P. Due on due Goal FOBT. Due on due Goal TAFE LECTURER exam. Due on due Goal FOBT. Due on due Goal Tdap. Due on due Goal Pneumococcal Vac cine. Due on due Goal Colonoscopy. Due on due Goal TD Vaccine. Due on due Goal Sigmoidoscopy. Due on due Goal Breast exam. Due on due Goal Cognitive assess ment. Due on due Goal Zoster vaccine. Due on due Goal TAFE LECTURER exam. Due on due Goal DEXA Scan. Due on due Goal Breast exam. Due on due Goal FOBT. Due on due Goal Colonoscopy. Due on due Goal Cognitive assess ment. Due on due Goal Zoster vaccine. Due on due Goal Tdap. Due on due Goal TD Vaccine. Due on due Goal Pneumococcal Vac cine. Due on due Goal TAFE LECTURER exam. Due on due Goal Sigmoidoscopy. Due on due Goal Breast exam. Due on due Goal DEXA Scan. Due on due Goal Pneumococcal Vac cine. Due on due Goal FOBT. Due on due Goal Zoster vaccine. Due on due Goal H&P. Due on due Goal TAFE LECTURER exam. Due on due Goal Cognitive assess ment. Due on due Goal Sigmoidoscopy. Due on due Goal Tdap. Due on due Goal Colonoscopy. Due on due Goal TD Vaccine. Due on 17 due Goal Sigmoidoscopy. Due on due Goal TAFE LECTURER exam. Due on due Goal H&P. Due on due Goal Pneumococcal Vac cine. Due on due Goal Colonoscopy. Due on due Goal FOBT. Due on due Goal Breast exam. Due on due Goal Zoster vaccine. Due on due Goal Cognitive assess ment. Due on due Goal DEXA Scan. Due on due Goal TD Vaccine. Due on due Goal Tdap. Due on due Goal TD Vaccine. Due on due Goal DEXA Scan. Due on due Goal Breast exam. Due on due Goal TAFE LECTURER exam. Due on due Goal Colonoscopy. Due on due Goal FOBT. Due on due Goal Sigmoidoscopy. Due on due Goal H&P. Due on due Goal Zoster vaccine. Due on due Goal Cognitive assess ment. Due on due Goal Tdap. Due on due Goal Pneumococcal Vac cine. Due on due Goal TD Vaccine. Due on due Goal Breast exam. Due on due Goal H&P. Due on due Goal Sigmoidoscopy. Due on due Goal Colonoscopy. Due on due Goal TAFE LECTURER exam. Due on due Goal FOBT. Due on due Goal Zoster vaccine. Due on due Goal Pneumococcal Vac cine. Due on due Goal Tdap. Due on due Goal Cognitive assess ment. Due on due Goal DEXA Scan. Due on due Goal TD Vaccine. Due on due Goal Tdap. Due on due Goal Colonoscopy. Due on due Goal TAFE LECTURER exam. Due on due Goal DEXA Scan. Due on due Goal Pneumococcal Vac cine. Due on due Goal Cognitive assess ment. Due on due Goal Influenza Vaccine. Due on Oc t due Goal FOBT. Due on due Goal Breast exam. Due on 016 due Goal Sigmoidoscopy. Due on due Goal H&P. Due on due Goal Zoster vaccine. Due on due Goal Breast exam. Due on 016 due Goal Tdap. Due on due Goal Sigmoidoscopy. Due on due Goal DEXA Scan. Due on 6 due Goal TAFE LECTURER exam. Due on due Goal TD Vaccine. Due on 16 due Goal H&P. Due on due Goal Zoster vaccine. Due on due Goal Pneumococcal Vac cine. Due on due Goal Cognitive assess ment. Due on due Goal Colonoscopy. Due on due Goal FOBT. Due on due Goal Influenza Vaccine. Due on Oc due Goal Zoster vaccine. Due on due Goal DEXA Scan. Due on 6 due Goal Sigmoidoscopy. Due on due Goal TAFE LECTURER exam. Due on due Goal H&P. Due on due Goal Breast exam. Due on 016 due Goal Pneumococcal Vac cine. Due on due Goal Tdap. Due on due Goal TD Vaccine. Due on 16 due Goal Colonoscopy. Due on 016 due Goal FOBT. Due on due Goal Influenza Vaccine. Due on Oc t due Goal Cognitive assess ment. Due on due Goal Zoster vaccine. Due on due Goal Pneumococcal Vac cine. Due on due Goal FOBT. Due on due Goal H&P. Due on due Goal Sigmoidoscopy. Due on due Goal Cognitive assess ment. Due on due Goal Colonoscopy. Due on due Goal TAFE LECTURER exam. Due on due Goal DEXA Scan. Due on 6 due Goal Influenza Vaccine. Due on Oc due Goal Depression scree esa. Due on due Goal TD Vaccine. Due on 16 due Goal Breast exam. Due on 016 due Goal Tdap. Due on due Goal Sigmoidoscopy. Due on due Goal Colonoscopy. Due on due Goal TAFE LECTURER exam. Due on due Goal Influenza Vaccine. Due on Oc due Goal H&P. Due on due Goal Breast exam. Due on due Goal DEXA Scan. Due on 6 due Goal FOBT. Due on due Goal TD Vaccine. Due on 16 due Goal Cognitive assess ment. Due on due Goal Zoster vaccine. Due on due Goal Depression scree esa. Due on due Goal Tdap. Due on due Goal Pneumococcal Vac cine. Due on due Goal Colonoscopy. Due on due Goal Breast exam. Due on due Goal FOBT. Due on due Goal Influenza Vaccine. Due on Oc due Goal TD Vaccine. Due on 16 due Goal TAFE LECTURER exam. Due on due Goal Pneumococcal Vac cine. Due on due Goal Sigmoidoscopy. Due on due Goal Tdap. Due on due Goal H&P. Due on due Goal DEXA Scan. Due on 6 due Goal Depression scree esa. Due on due Goal Zoster vaccine. Due on due Goal Cognitive assess ment. Due on due Goal Zoster vaccine. Due on due Goal Influenza Vaccine. Due on Oc t due Goal DEXA Scan. Due on 6 due Goal Cognitive assess ment. Due on due Goal H&P. Due on due Goal Sigmoidoscopy. Due on due Goal Pneumococcal Vac cine. Due on due Goal Depression scree esa. Due on due Goal Colonoscopy. Due on due Goal TD Vaccine. Due on 16 due Goal TAFE LECTURER exam. Due on due Goal Breast exam. Due on 016 due Goal FOBT. Due on due Goal Tdap. Due on due Goal Depression scree esa. Due on due Goal Breast exam. Due on 015 due Goal TD Vaccine. Due on 15 due Goal Tdap. Due on due Goal DEXA Scan. Due on 5 due Goal Colonoscopy. Due on due Goal TAFE LECTURER exam. Due on due Goal Sigmoidoscopy. Due on due Goal FOBT. Due on due Goal Pneumococcal Vac cine. Due on due Goal Influenza Vaccine. Due on Oc due Goal Diabetes screening due Goal Zoster vaccine. Due on due Goal H&P. Due on due Goal Cognitive assess ment. Due on due Goal H&P. Due on due Goal Pneumococcal Vac cine. Due on due Goal Influenza Vaccine. Due on Oc due Goal TD Vaccine. Due on 15 due Goal TAFE LECTURER exam. Due on due Goal FOBT. Due on due Goal Sigmoidoscopy. Due on due Goal Breast exam. Due on due Goal Colonoscopy. Due on due Goal DEXA Scan. Due on 5 due Goal Colonoscopy. Due on due Goal FOBT. Due on due Goal DEXA Scan. Due on due Goal Pneumococcal Vac cine. Due on due Goal H&P. Due on due Goal Breast exam. Due on due Goal TAFE LECTURER exam. Due on due Goal Influenza Vaccine. Due on Oc due Goal Sigmoidoscopy. Due on due Goal TD Vaccine. Due on due Goal TAFE LECTURER exam. Due on due Goal TD Vaccine. Due on due Goal Pneumococcal Vac cine. Due on due Goal FOBT. Due on due Goal H&P. Due on due Goal Sigmoidoscopy. Due on due Goal Colonoscopy. Due on due Goal DEXA Scan. Due on due Goal Influenza Vaccine. Due on Oc due Goal Breast exam. Due on due Goal Colonoscopy. Due on due Goal Breast exam. Due on due Goal FOBT. Due on due Goal Sigmoidoscopy. Due on due Goal TAFE LECTURER exam. Due on due Goal DEXA Scan. Due on 5 due Goal Influenza Vaccine. Due on Oc due Goal TD Vaccine. Due on 15 due Goal H&P. Due on due Goal Pneumococcal Vac cine. Due on due Goal Colonoscopy. Due on 014 due Goal TD Vaccine. Due on 14 due Goal Pneumococcal Vac cine. Due on due Goal H&P. Due on due Goal Breast exam. Due on 014 due Goal Influenza Vaccine. Due on Oc due Goal DEXA Scan. Due on 4 due Goal TAFE LECTURER exam. Due on due Goal Sigmoidoscopy. Due on due Goal FOBT. Due on due Goal TAFE LECTURER exam. Due on due Goal Influenza Vaccine. Due on Oc due Goal Sigmoidoscopy. Due on due Goal Pneumococcal Vac cine. Due on due Goal FOBT. Due on due Goal Colonoscopy. Due on due Goal Breast exam. Due on due Goal H&P. Due on due Goal DEXA Scan. Due on 4 due Goal TD Vaccine. Due on 14 due Goal Pneumococcal Vac cine. Due on due Goal Influenza Vaccine. Due on Oc due Goal TD Vaccine. Due on 14 due Goal H&P. Due on due Goal FOBT. Due on due Goal Breast exam. Due on 014 due Goal Sigmoidoscopy. Due on due Goal Colonoscopy. Due on due Goal DEXA Scan. Due on 4 due Goal TAFE LECTURER exam. Due on due Goal Influenza Vaccine. Due on Oc due Goal TAFE LECTURER exam. Due on due Goal DEXA Scan. Due on 4 due Goal Pneumococcal Vac cine. Due on due Goal Sigmoidoscopy. Due on due Goal H&P. Due on due Goal Breast exam. Due on 014 due Goal TD Vaccine. Due on 14 due Goal FOBT. Due on due Goal Colonoscopy. Due on 014 due Goal Sigmoidoscopy. Due on due Goal TAFE LECTURER exam. Due on due Goal Pneumococcal Vac cine. Due on due Goal Breast exam. Due on 014 due Goal H&P. Due on due Goal DEXA Scan. Due on 4 due Goal FOBT. Due on due Goal TD Vaccine. Due on 14 due Goal Influenza Vaccine. Due on Oc due Goal Colonoscopy. Due on due Goal FOBT. Due on due Goal TD Vaccine. Due on 14 due Goal TAFE LECTURER exam. Due on due Goal DEXA Scan. Due on 4 due Goal Pneumococcal Vac cine. Due on due Goal Sigmoidoscopy. Due on due Goal Colonoscopy. Due on 014 due Goal Influenza Vaccine. Due on Oc due Goal Breast exam. Due on 014 due Goal H&P. Due on due Goal DEXA Scan. Due on 2 due Goal PAP. Due on due Goal Mammogram. Due on 2 due Goal Colonoscopy. Due on 012 due Goal FOBT. Due on due Goal H&P. Due on due Goal Influenza Vaccine. Due on Oc due Goal Breast exam. Due on 012 due Goal TAFE LECTURER exam. Due on due Goal Pneumococcal Vac cine. Due on due Goal TD Vaccine. Due on 13 due Goal Sigmoidoscopy. Due on due Goal DEXA Scan. Due on 2 due Goal H&P. Due on due Goal Sigmoidoscopy. Due on due Goal Lipid Panel. Due on 018 due Goal Breast exam. Due on 012 due Goal Pneumococcal Vac cine. Due on due Goal FOBT. Due on due Goal PAP. Due on due Goal Influenza Vaccine. Due on Oc due Goal TD Vaccine. Due on 13 due Goal Mammogram. Due on 2 due Goal Colonoscopy. Due on 012 due Goal TAFE LECTURER exam. Due on due Goal DEXA Scan. Due on 2 due Goal Influenza Vaccine. Due on due Goal Pneumococcal Vac cine. Due on due Goal PAP. Due on due Goal TAFE LECTURER exam. Due on due Goal H&P. Due on due Goal Mammogram. Due on 2 due Goal Colonoscopy. Due on 012 due Goal FOBT. Due on due Goal Sigmoidoscopy. Due on due Goal TD Vaccine. Due on 13 due Goal Breast exam. Due on 012 due Referral Ordered: referred to COUNSELING (related to Anxiety in acute stress reaction) ordered Referral Ordered: referred to COUNSELING ordered Referral Ordered: X-RAY EXAM OF TRUNK SPINE - 2 VIEWS ordered Referral Ordered: SLEEP STUDY, UNATTENDED, HOME ordered Referral Referred To: [facility] Ordered: Referrals: Emergency Medicine. [facility]. Evaluate and treat Appointment date/timeframe: 02/22/2021 ordered Referral Referred To: Malou Alba [facility] [place], [place], [id number] [phone] Ordered: Referrals: Physician Assistants & Advanced Practice Nursing Providers : Nurse Practitioner. Malou Alba. Evaluate and treat Appointment date/timeframe: 11/25/2020 ordered Referral Referred To: Emily Shore [facility], [place], [id number] [phone] Ordered: Referrals: Physician Assistants & Advanced Practice Nursing Providers : Nurse Practitioner. Emily Shore. Evaluate and treat Appointment date/timeframe: 12/18/2019 ordered Referral Referred To: Brooks Umana [address] [place], [address] [phone] Ordered: Referrals: Allopathic & Osteopathic Physicians : Internal Medicine : Critical Care Medicine. Brooks Umana. Evaluate and treat Appointment date/timeframe: 08/20/2019 ordered Referral Ordered: referred to Cardiology-DR BATEMAN AT [facility]- (related to Syncope and collapse) ordered Referral Ordered: DOPPLER ECHO EXAM, HEART ordered Referral Ordered: SCR MAMMO BI INCL CAD ordered Referral Ordered: ECG RECORDING ordered Referral Ordered: LOWER EXTREMITY ARLIN DOPPLER ordered Referral Ordered: referred to [facility]- PER PT REQUEST Neurology Appointment date/timeframe: 02/17/2019 ordered Referral Ordered: ELECTROCARDIOGRAM, COMPLETE ordered Referral Ordered: X-RAY EXAM OF LOWER LEG ordered Referral Ordered: X-RAY EXAM OF ANKLE ordered Referral Ordered: SCR MAMMO BI INCL CAD Bilateral ordered Referral Ordered: CT LUMBAR SPINE W/O DYE ordered Referral Ordered: MRI LUMBAR SPINE W/O DYE ordered Referral Ordered: referred to Neurosurgery Appointment date/timeframe: 12/12/2017 ordered Referral Ordered: X-RAY EXAM CHEST 2 VIEWS ordered Referral Referred To: [facility] Ordered: Referrals: Orthopedic Surgery. [facility] Appointment date/timeframe: 09/10/2016 ordered Referral Ordered: X-RAY EXAM OF HAND Left ordered Referral Ordered: Referrals: Obstetrics and Gynecology. Location: [place]. Assume care Appointment date/timeframe: 04/09/2016 ordered Referral [facility] Ordered: Referrals: Neurology. [facility] Location: [place], [place]. Assume care Appointment date/timeframe: 04/12/2016 ordered Referral Ordered: Screeningmammographydigital ordered Referral Ordered: MAMMOGRAM, SCREENING ordered Referral Ordered: DXA BONE DENSITY, AXIAL Appointment date/timeframe: 01/14/2015 ordered Referral Ordered: Referrals: Colon and Rectal Surgery. Diagnostic testing Appointment date/timeframe: 01/21/2015 ordered Referral Ordered: Referrals: Pulmonology. Evaluate and treat ordered Referral Ordered: Referrals: Gastroenterology. Evaluate and treat Appointment date/timeframe: 04/19/2014 ordered Referral Ordered: Referral: Dermatology. Evaluate and treat. Appointment date/timeframe: 06/01/2013 ordered Referral Ordered: X-RAY EXAM OF L-S 2 OR 3 VIEWS ordered Patient Education Diabetes Blood Sugar Em ergencies: You~ completed Patient Education Frequent Urination: Car e Instructions completed Patient Education Urinary Tract Infection in Women: Car~ completed Patient Education Viral Infections: Care Instructions completed Patient Education Upper Respiratory Infec tion (Cold): C~ completed Patient Education Back Spasm: Care Instru ctions completed Patient Education Magnesium Test: About T his Test completed Patient Education Centany 2 % topical oin tment completed Patient Education Folliculitis: After You r Visit completed Patient Education High Blood Pressure: Af ter Your Visit completed Patient Education prednisone 20 mg tablet completed Patient Education Diarrhea: After Your Vi sit completed Patient Education Cough: After Your Visit completed Patient Education Viral Respiratory Infec tion: After Yo~ completed Patient Education Bronchitis: After Your Visit completed Patient Education Urinary Tract Infection in Women: Aft~ completed Patient Education Learning About High Blo od Pressure completed Future Order: Lab Order URINALYS IS WITH REFLEX CULTURE ([id number]), Ordered on: Ordered Future Order: Lab Order URINALYS IS WITH REFLEX CULTURE ([id number]), Ordered on: Ordered Future Order: Lab Order BMP ([id number]), Se nt on: Sent Future Order: Lab Order URINALYS IS WITH REFLEX CULTURE ([id number]), Ordered on: Ordered Future Order: Lab Order CBC W/ D iff ([id number]), Sent on: Sent Future Order: Lab Order CMP ([id number]), Se nt on: Sent Future Order: Lab Order LIPID PA MARGARITA ([id number]), Sent on: Sent Future Order: Lab Order A1C ([id number]), Se nt on: Sent Future Order: Lab Order URIC ACI D ([id number]), Ordered on: Ordered Future Order: Lab Order A1C ([id number]), Or dered on: Ordered Future Order: Lab Order CBC ([id number]), Or dered on: Ordered Future Order: Lab Order CMP ([id number]), Or dered on: Ordered Future Order: Lab Order LIPID PA MARGARITA ([id number]), Ordered on: Ordered Future Order: Lab Order MICROALB UMIN ([id number]), Ordered on: Ordered Future Order: Lab Order A1C ([id number]), Or dered on: Ordered Future Order: Lab Order CBC ([id number]), Or dered on: Ordered Future Order: Lab Order CMP ([id number]), Or dered on: Ordered Future Order: Lab Order LIPID PA MARGARITA ([id number]), Ordered on: Ordered Future Order: Lab Order MICROALB UMIN ([id number]), Ordered on: Ordered History Of Present Illness Encounter Date Complaint History Of Prese nt Illness 6 MO F/U (comments) 76 YO F, GRI EVING HER 'S LAST WEEKC/O URI SYMPTOMS-UNK EXPOSURE 6 MO F/U UTI other PT STATES THAT S HE WAS TREAED FOR UTI ON 05-12-22 AND SHE DOESNT FEEL LIKE SHE HAS IMPROVED. PT PATIENT STATES THAT SHE IS STILL HAVING ALOT OF BURING WITH URINATION. PT ALSO COMPLAINS WEAK STREAMPT IS BEING PLACED ON HOSPICE TODAY UTI (comments) (Patient is a 76 -year-old male with a medical history of hypertension, hyperlipidemia, type 2 diabetes, anxiety that presents to clinic with complaints of burning on urination, vaginal itching for the past 2 days. She has been seen in the clinic on 04/11/2022 and 05/12/2022 for urinary signs or symptoms, treated with Macrobid for suspected urinary tract infection, but the cultures in both cases produced only mixed genital pilar no definitive UTI. She said after her last treatment which ended on 05/18/2022 she used Vagisil she suspects she may be having yeast symptoms. She denies flank pain, fever, vomiting, chest pain, shortness of breath, STI concerns, or any other acute symptom today. She also had a CT abdomen pelvis performed 11/26/2021 which the radiologist impression was mild rectal wall thickening thought to represent proctitis. There were no bladder abnormalities, or any other incidental findings. Primary care physician is Dr. Jose Oquendo, she does not see urology at this time.) UTI The severity of the problem is mild. The problem has not changed. Presenting/Initial symptoms include burning and frequency. Symptoms are associated with recurring urinary tract infections. Denies relieving factors. UTI (comments) Patient with a h istory of UTIs. She is currently being followed by endocrinology. She admits that she does not routinely check her glucose at home. Cold symptoms (comments) Patient presents out of an overabundance of caution regarding something that may be contagious to her who is currently hospitalized. Cold symptoms Onset: 3 days ag o. There are no relieving factors. Associated symptoms include post-nasal drainage and sore throat. Additional information: Pt states her tongue and inside of her mouth feel sand like . URINE FREQUENCY The symptoms beg an 1 week ago. Patient states that symptoms include urgency, frequency, states she also has trouble holding her bladder. States that she read online that it could be from magnesium and vitamin B deficiency, states that she has taken some magnesium and vitamin B12 that she had at home. States that lately she has been wearing pads because she is having a hard time holding her bladder and she has been needing to change those frequently. Urine characteristics include change in color, states that she has had some dark urine lately. States that she had a UTI about two weeks ago and was seen here in the clinic and prescribed an antibiotic. URINE FREQUENCY (comments) Peg i s a 76-year old female who presents to the clinic today with complaint of urinary frequency, incontinence. Symptom onset was one week ago. She states that she has had incontinence and is wearing a pad. She states that she will urinate a large amount, then feel the urge again but just has dribbles. She was diagnosed and treated for UTI approximately 2 weeks ago. She states that she did some research online and found that she could be deficient in magnesium and vitamin B12. She states that she has been prescribed vitamin B12 in the past but has not been taking it. She states that she is diabetic and that blood sugar has been elevated. She states that she has not taken her Trulicity for 2 weeks. She has been taking her other medications as prescribed. She denies any burning with urination, abdominal pain, back pain, flank pain, fever, nausea, or blood in urine. She offers no other concerns or complaints at this time. UTI Onset: 4 Days. T he severity of the problem is moderate. The problem has worsened. The symptoms are constant. Presenting/Initial symptoms include dribbling, frequency and urgency. Symptoms are associated with diabetes and recurring urinary tract infections. Aggravating factors include urination. Symptoms are not aggravated by baths, certain foods or sexual activity. Denies relieving factors. Associated symptoms include frequency, pressure and urgency. Pertinent negatives include abdominal pain, dribbling, dysuria, fatigue, fever, flank pain, hematuria, hesitancy, nausea, nocturia, pelvic pain, rash, retention, vaginal discharge or vomiting. UTI (comments) (The patient is a 76-year-old female with a medical history of hypertension, hyperlipidemia, diabetes, anxiety, that presents to the clinic with complaints of urinary frequency and suprapubic pain for 3 days. Aggravating factors urination, relieving factors none, treatments tried none. Primary care physician Dr. Oquendo. Patient denies chest pain, shortness of breath, fever, vomiting, flank pain, focal changes, STI concerns, or any other acute symptoms today.) COVID SX Pt presents with complaints of chills, diarrhea since last night. Pt requesting COVID test. Pt has COVID and flu vaccines. COVID SX (comments) (Patient is a 76-year-old female with a medical history of hypertension, hyperlipidemia, anticoagulant use, depression, history of stroke, anxiety, that presents to the clinic with complaints of cough, chills, intermittent diarrhea since last night. Aggravating factors are none, relieving factors none, treatments tried have been none. Primary care physician is Dr. Jose Oquedno. Patient denies chest pain, shortness of breath, fever, vomiting, focal changes, or any other acute symptom today.) SPOT ON HEAD (comments) PT STATE S SHE PULLS OF SCABS AT SCALP/NECKTRIED NYSTATTIN AND ZINC SHAMPOO W/O RELIEF SPOT ON HEAD Pt presents with complaints of bumps on the top of her head for 1.5 months. Pt states she went to see a superintendent laundry who advised pt to use zinc shampoo. Pt had no relief with this. phq-9 Pt scored 17 on PHQ-9. BACK PAIN Additional infor dione: Pt c/o lower back pain that radiates up to her shoulders. She states it has been going on for 3 weeks. She had an appt last week but had to cancel. BACK PAIN (comments) C/O LEFT UP PER BACK, THORACIC/PARASPINAL AREA PAIN, WORSE WITH MOVEMENT- NO FALL OR TRAUMAHAS HX OF SLEEP APNEA, AND DAYTIME TIREDNESS, SNORES LOUDLY phq-9 (comments) FRUSTRATED DUE TO 'S METASTATIC CANCER AND HEALTHDENIED SUICIDAL OR HOMICIDAL IDEATION Antonio-19-2022 HPI Patient has no n ew concerns or complaints. She has been quite constipated in the last few days but she feels that is fine resolving. She says she still feels overall fatigued and weak and is hoping therapy will improve that. She does not feel like she is quite ready to return home at this time. She has to be able to care for her sick when she returns home. PRE-OP EXAM (comments) 76 YO F, WITH HX OF IDDM, REACTIVE CHEST PAIN DUE TO STRESS OF HER 'S ILLNESSSEEN BY CARDIOLOGY- 07/25/21, DR BATEMAN HAS ORDERED STRESS-CARDIOLITE ECHOPT HAS HAD LESIONS OF HER LEFT UPPER AND LOWER EYELIDS AND PLANS TO HAVE THEM REMOVEDPROCEDURE IS TO BE SCHEDULED AFTER CLEARANCE- UNDER LOCAL ANESTHESIANO ACUTE SYMPTOMS EXCEPT MILD SPRAIN OF HER LEFT ANKLE RECENTLYNO CHEST PAIN OR SOBSEE ROS PRE-OP EXAM Pt presents for a pre op physical. Pt will be having left upper lid lesion excision, left lower lid lesion excision and reconstruction. The performing dr is Dr Hector Doan. Surgery has not been scheduled yet. Fax information to [phone]. elevated BP Pt presents with complaints of elevated blood pressure. Pt states the home health nurse took her blood pressure today and it was elevated and the nurse advised her to come to the clinic. Pt had nausea early this morning, chest heaviness, and left shoulder pain for 2 days. Pt is has a lot of home stress. elevated BP (comments) 75 yo f, WITH HX OF IDDM, DEPRESSION/[facility]XIET[facility] FOR ANXIETY RELATED CHEST PAIN -PT NEEDED HELP WITH HER 'S CARESHE WAS REFERRED TO FOLLOWUP WITH CARDIOLOGY-SHE POSTPONED APPOINTMENTS UNTIL SIMILAR EPISODE TODAYSHE WAS ANXIOUS ABOUT HER 'S HEALTH/DRESSING CHANGES AND MULTIPLE PROBLEMS INCLUDING METASTATIC CABILAT LEG SWELLING/DRAINING SKIN LESIONS THAT REQUIRED HER [facility] AT [facility]ERRED HER TO [facility] FOR TREATMENTPT ACCOMPANIED HIM TO ER AND COMPLAINED OF INTERMITTENT CHEST PAIN WITH ANXIETY AGAINPT DID NOT WANT TO BE SEEN IN ER- AND PRESENTED TO THE CLINICSHE DID REPORT PRECORDIAL/ANGINA TYPE PAIN WITH RADIATION TO SHOULDER LASTING FEW MINUTESSHE WAS PAIN FREE AFTER FEW MINUTES IN CLINICEKG- TODAY WITH SINUS RHYTHM, NON-SPECIFIC, ST-T CHANGES-SIMILAR TO FEB 2021TROPONIN ANXIETY (comments) PT HAS HAD MU LTIPLE STRESSORS FOR ANXIETYWITH MULT PROBLEMS WITH 'S HEALTH AND DAUGHTER'S DIVORCEREQUESTED MEDICATION AND COUNSELING REFERRAL ANXIETY COUGH EAR PAIN BODY ACHES COVID SX Pt presents toda y for chest tightness, cough, ear pain and body aches.(Christophe Beckham presents to the clinic with upper respiratory symptoms for 3 days. She describes her symptoms as: fatigue, chest tightness, cough, ear pain, and body aches. Her rapid SARSCoV2, Flu and Strep tests were negative today. Her VS are normal. Her primary care provider is Jose Oquendo.) SORE THROAT SOB PT PRESENTS WITH SOB AND 'DIFFICULTY BREATHING.' SOB (comments) 75 YO F, WITH HT N, IDDM, HYPERLIPIDEMIA, ANXIETY [id number] [facility]FLE[facility] AFTER ONE WEEK THERESHE HAS BEEN CONCERNED ABOUT HER HEALTH- PRESENTED WITH C/O SOB AND PRE-CORDIAL CHEST DISCOMFORTSHE WAS IMMEDIATELY TAKEN TO ER- BACK PAIN Onset: 3 days ag o. Location of pain is lower back and ONLY LEFT SIDE. Pain is radiated to the LEFT LEG.The patient describes the pain as an ache and sharp. Context: walking. Symptoms are aggravated by walking. Symptoms are relieved by heat, ice, over the counter medication: acetaminophen and sitting. BACK PAIN (comments) 75 YO F, WI TH C/O LOW BACK PAIN-INTERMITTENTLY RADIATING TO LEFT THIGHNO FALL- PT GOT UP FROM CHAIR AND FELT A POP/PAIN- PAIN IS WORSE WITH MOVEMENT, WEIGHT BEARING HIGH BLOOD SUGAR HIGH BLOOD SUGAR (comments) PT S TATED HER GLUCOSE WAS 300+ THIS AMSHE HAS NOT STARTED THE TRULICITY- PRESCRIBED BY CYRB-CAAM-EVG SCANNED NOTE FROM MayHE WAS ANXIOUS ABOUT HER HUSBANDS HEALTH THIS AM PAINFUL BUMPS ON HEA D AND BODY (comments) NO KNOWN INSECT BITESNO FEVERHAS PRURITIC LESIONS AT RIGHT SIDE OF SCALP/NECK, UPPER BACK ANT CHEST WALLSEE BRAXTON HAS STOPPED METFORMIN DUE TO DIARRHEAHASN'T STARTED TRULICITY YET-HAS PRESCRIPTION FROM DR SINGH PAINFUL BUMPS ON HEAD AND BODY T he symptoms began 2 months ago. The symptoms occur intermittent. Associated symptoms include red, raised rash that is painful, scattered upon scalp and body with no particular pattern or known cause. rash The patient pres ents for rash. This episode began 3 weeks ago. Affected area(s) include face. The patient describes the affected area(s) as red. Associated symptoms include erythema (skin). Additional information: The spots are scattered mildly on her face. rash (comments) 74 YO F, WITH C/ O SKIN IRRITATION FROM WEARING A MASK X FEW MONTHSPT SQUEEZED SOME CLEAR DRAINAGE FROM COUPLE OF WOUNDS AFTER PICKING ON THEMNO FEVERNO SOBNO LIP OR TONGUE EDEMANO HIVES Diabetes The diabetes millicent tyra began in 1979. Risk factors include: obesity and over age [age] years old. She Has been managed with oral medications. Associated symptoms include: blurred vision, diarrhea and increased fatigue. Pertinent negatives include burning of extremities, chest pain, constant hunger, dental disease, dyspnea, foot ulcers, frequent infections, urinary frequency, heartburn, hypoglycemic episodes and slow healing wounds / sores. ER F/U PT PRESENTS FOR A FOLLOW UP VISIT ON Saturday07/10/2019. SYMPTOMS INCLUDE GAGGING, CHOKING, DIFFICULTY BREATHING, PAIN BETWEEN SHOULDERS AND ABDOMINAL PAIN. WAS GIVEN A BREATHING TREATMENT AND WAS DISCHARGED. REQUESTS REFERRAL TO A PULMONIGIST. ER F/U (comments) 74 YO F, WITH RECENT RSV-EXPOSURE TO RSV-HER HAS IMPROVEDPT HAS PERSISTENT COUGH, SINUS DRAINAGEAND WHEEZING-WHICH IMPROVES WITH ALBUTEROLSHE HAS HAD ELEVATED GLUCOSE WITH PREDNISONE IN PASTHAS HX OF VAG YEAST INF WITH ANTIBIOTICS- HAS MULT ALLERGIESSHE WAS HOSPITALIZED AT [facility] J[facility] 2019 DUE TO RSV BRONCHITIS/SOBSHE WAS SEEN 3 [facility]-WITH NEG CXRPRESENTS FOR COUGH MEDS/PULM REFERRAL IP F/U PATIENT PRESENTS FOR FOLLOW UP AFTER INPATIENT FOR RSV. PATIENT IS STILL NEXPERIENCING COUGH, DIZZINESS, FATIGUE AND WEAKNESS. IP F/U (comments) COUGH HAS IMPR EMRE-BUT STILL PRESENT- NON PRODUCTIVEC/O LOOSE STOOLSNO FEVERHUSBAND REPORTS ANOTHER SYNCOPE TYPE EPISODE AT HOME DURING BREAKFASTPT APPARENTLY ROLLED HEAD/EYES BACWARD-ALMOST FELL FROM CHAIR- SHE WAS NOTED TO BE FOAMING AT MOUTHNO TONIC OR CLONIC ACTIVITYNO INCONTINENCEPT HAD AN EPISODE OF O-IDMF-[id number] RUN 10-15 BEATS IN THE HOSPITAL LAST WEEK-W/O ANY SYMPTOMS PER PTATTRIBUTED TO ZOFRAN/ZITHROMAXPT HAS HAD HX OF PERICAARDIAL EFFUSION IN PAST - COUGH (comments) 73 YO F, EXPOSE D TO WITH RSV -MORE THAN ONE WEEK AGOHAS WORSE COUGH WITH CHEST/BACK PAIN-AND WHEEZINGNO RESP DISTRESSCOUGH IS PRODUCTIVE OF CLEAR SPUTUMNO FEVER COUGH Severity: 10. Th e patient describes the cough as hacking, moist and productive (of clear sputum). It occurs persistently. The problem has become gradually worse. Context: sick family member. There are no aggravating factors. There are no relieving factors. Associated symptoms include chills, cough, dyspnea, fatigue and night sweats. Pertinent negatives include fever. Additional information: PT PRESENTS WITH BILATERAL EAR PAIN CHEST PAIN AND SEVERE BACK PAIN. CONGESTED Sore throat Onset: 1 Day. Sy mptoms are associated with sick family member. The patient denies aggravating factors. The patient denies relieving factors. Associated symptoms include cough and nasal congestion. Pertinent negatives include sinus pressure. Additional information: PRODUCTIVE COUGH OF WHITE SPUTUM, BLOWING NOSE, SNEEZING, EARS ITCH. Sore throat (comments) EXPOSED T O WHO RSVC/O COUGH WITH ABOVE SYMPTOMS UTI Onset: 3 Days. A ssociated symptoms include abdominal pain, fatigue and urgency. Pertinent negatives include frequency or nausea. UTI (comments) 73 yo f, with hx of uti in pastTOOK CIPRO X 2 TABS THEN STOPPED PT THOUGHT IT HELPED HER LAST YEAR- HAS LEFT OVER TABS-WANTED TO KNOW IF SHE COULD TAKE THEMC/O DYSURIA W/O FEVER OR HEMATURIA PRE OP PHYS (comments) SCHEDULED FOR LEFT KNEE ARHTROSCOPY 12/30/2018HX OF LACUNAR INFARCTS-ADMITTED AT [facility] 12/05/2018 PRE OP PHYS PT PRESENTS FOR PRE OP FOR KNEE SURGERY BY DR ARMANDO NEXT WEEK 12-30-2018 AT [facility] [phone] & [phone] LEG PAIN (comments) Christophe chaparro presents with c/o pain to LLE that initially began in her ankle, and has now moved primarily to her left knee and radiating into her thigh. She denies any swelling or erythema. Pain is worse with movement, but not tender to touch. She is concerned about DVT. She states she recently had a CVA and is anxious in general about the overall status of her health. Also of note, patient has TTDM. LEG PAIN Onset: 4 days ag o. Location: left ankle. The pain is aggravated by movement, sitting and walking. Associated symptoms include tingling in the arms. Hand Dominance: right. Additional information: Pt states it started in the ankle, then the calf and now the pain is in her thigh. Pt denies heat or pain when touching. FOLLOW UP (comments) S/P LACUNAR TYPE INFARCTS -[facility]MITTED TO [facility] WITH DIZZINESS/FATIGUENO MOTOR OR SENSORY DEFICITSFATIGUE HAS IMPROVED WELL [facility]. Pt states she was in the hospital last Saturday in [place] for a stroke. Pt states she has been fine since shes been out of the hospital other than becoming fatigued. LT ANKLE PAIN (comments) INJURED , LEFT ANKLE 2 WEEKS AGOFELL,CLIMBING THROUGH A WINDOWC/O PAIN- LATERAL ASPECT OF LEFT LEG ABOVE THE ANKLENO BLEEDING OR LACNO BACK/HIP/KNEE OR FOOT INJURYALSO C/O RECURRENCE OF DERMATITIS- UNDER BOTH BREASTS LT ANKLE PAIN PT STATES THAT S HE FEKK APPROX 2 WEEKS AGO AND STRUCK HER LEFT ANKLE. PT STATES THAT SHE IS STILL HAVING PROBLEMS BEARING WEIGHT AND STILL HAVING PAIN STOMACH PROB The symptoms beg an 1 year ago. Pt states she is tired and weak. Pt states she is having problems with her bowels. Pt states she is having diarrhea as soon as she is done eating or before she even finishes. Pt states it has got worse over the last 4 months. Pt states she has had nasal congestion the past few days. spot on back (comments) CHRONIC LESION AT LEFT UPPER BACK X 2 YRSNEW RASH AT LEFT ARM/LEG WITH ITCHINGRECENT RHINITIS SYMPTOMS WITH EARS-POPPING/CONGESTION spot on back Pt presents toda y with a brown spot on her upper left back near her shoulder. Pt states she first noticed the spot 2 years ago. Pt states the spot itches. Pt also complains of her ears feeling congested with the onset of two days ago.Pt states she quit taking her losartan because she heard it is causing cancer. Pt states she stopped this a week ago. CHILLS COUGH LIGHT HEADED Pt presents toda y with chills cough and light headed that started on Saturday. Pt states her cough is productive. Pt states she felt like she was going to pass out yesterday. Pt complains she has also been SOB. Pt also complains her lower back pain has not got any better from when she was here last . Pt states her back has hurt for three weeks now. Pt states the pain is in her lower back but radiates down her leg on the right side. Pt states she has no energy and all she does is sleep. Pt denies any injury to her back. Pt states her back pain is a constant throb and stabbing pain. COUGH (comments) COLD/COUGH X 2- 3 DAYSHAS INCREASED LOWER BACK PAIN-RADIATING TO RIGHT GROINNO DYSURIA LIGHT HEADED (comments) TOOK LAS T FLEXERIL SATNO HEADACHE, NO PALPITIONS BACK PAIN (comments) Christophe Beckham presents with c/o right sided low back pain that is worse with movement. She first noticed symptoms three days ago upon awakening. She denies any known injury. States her felt a knot in her back. She denies fecal and urinary incontinence. She has not been lifting anything heavy lately. Pain radiates into buttock and anterior thigh. She denies dysuria, frequency, and urgency. States she often gets UTIs and this does NOT feel consistent with UTI symptoms for her. BACK PAIN Onset: 3 days ag o. Location of pain is lower back.The patient describes the pain as dull and sharp. Symptoms are aggravated by ascending stairs, bending, changing positions, extension, flexion and night pain. Symptoms are relieved by ice. Additional information: PT states the pain started on the R lower back, but it starting to spread to the left side too. PT states that she felt a lump in her right lower back. PT states that the pain is affecting her sleep. PT states it hurts less to be standing. lab followup Known history of HTN and hyperlipidemia. Most recent labs discussed. LDL # 90 The goal for lipid control, LDL, HDL and triglyceride explained. Patients BP is in good control at home, elevated here today. Goal of BP is </130/140 systolic. Patient was encouraged to check BP at home. Emphasized avoidance of hypotension. Patient denies any medication side effects. Patients weight has been stable. Explained proper diet, exercise and activity. Benefit of weight management discussed. Explained the potential complications of HTN and hyperlipidemia. Routine eye exam recommended. Patient also has a history of type 2 diabetes that is managed by her yarn dumper Dr. Chavez at [facility]. Patient is to follow-up in 1 week for a blood pressure check. Diet, exercise and activity stated to be pretty good. Colonoscopy screening recommended. Mammography #Up-to-date. . She is not a smoker and rarely consumes alcohol. She wears a seatbelt while in a vehicle. Explained the importance of avoidance of smoking, tobacco use and illicit drug use. Discussed safety at home. Discussed avoidance of accidents and unhealthy habits. Discussed benefit of routine eye exam and dental follow up. Encouraged self breast exams. DEXA scan as screening for osteoporosis will be ordered. uti Onset: 2 Weeks. The severity of the problem is mild. The problem has not changed. Presenting/Initial symptoms include itching. Denies aggravating factors. Denies relieving factors. Associated symptoms include dysuria, frequency and itching. Pertinent negatives include abdominal pain, dribbling, fatigue, fever, flank pain, hematuria, hesitancy, nausea, nocturia, pelvic pain, penile discharge, pressure, rash, retention, urgency, vaginal discharge or vomiting. Cold symptoms Onset: 1 day ago . The patient describes the cough as productive. Context: sick family member. There are no aggravating factors. There are no relieving factors. Associated symptoms include cough, nasal congestion and sore throat. Pertinent negatives include chills, dyspnea, dyspnea on exertion, epistaxis, fatigue, fever, heartburn, hemoptysis, hoarseness, night sweats, pleuritic pain, post-nasal drainage, rhinitis, rhinorrhea, sinus pressure, weight loss and wheezing. UTI The problem has worsened. Presenting/Initial symptoms include burning, dysuria and lower back pain. Symptoms are associated with recurring urinary tract infections. Denies aggravating factors. Denies relieving factors. Associated symptoms include dysuria, fatigue, hematuria, pressure, urgency and low back pain. Pertinent negatives include abdominal pain, dribbling, fever, flank pain, hesitancy, nausea, nocturia, pelvic pain, rash, retention, vaginal discharge or vomiting. UTI Presenting/Initi al symptoms include frequency, lower back pain and strong smelling urine. Denies aggravating factors. Denies relieving factors. Associated symptoms include frequency and backpain. Sinus symptoms (acute) Onset: 1 Week. The severity of the problem is moderate. The problem has worsened. The symptoms are constant. Both sides are affected. Pertinent/initial symptoms include facial pain, facial pressure, sinus congestion, sinus pain and sinus pressure. Aggravating factors include leaning forward. Denies relieving factors. Associated symptoms include cough, headache, nasal drainage, orbital swelling, otalgia, postnasal drainage, rhinorrhea, sinus pressure and sore throat. Pertinent negatives include anosmia, dental disease, deviated septum, fever, halitosis, immunosuppression, nasal obstruction, tooth pain or tooth sensitivity. needs referral Pt needs referra l for trigger finger. Hand pain Onset: on 2016. Location: left hand. The pain is throbbing. Context: there is no injury. Associated symptoms include swelling. Hand Dominance: right. cough Onset: 2 weeks a go. The patient describes the cough as hacking, moist, persistent and productive (of yellow sputum). It occurs persistently. The problem has become gradually worse. Context: sick family member. Symptoms are aggravated by lying down. There are no relieving factors. Associated symptoms include chills, cough, fatigue, hoarseness, nasal congestion, post-nasal drainage, sore throat and wheezing. Pertinent negatives include dyspnea, dyspnea on exertion, epistaxis, fever, heartburn, hemoptysis, night sweats, pleuritic pain, rhinitis, rhinorrhea, sinus pressure and weight loss. Cough Onset: 2 days ag o. The patient describes the cough as productive (of yellow sputum). It occurs persistently. Context: sick family member. There are no aggravating factors. There are no relieving factors. Associated symptoms include cough, hoarseness, nasal congestion, sore throat and upper back discomfort. Pertinent negatives include chills, dyspnea, dyspnea on exertion, epistaxis, fatigue, fever, heartburn, hemoptysis, night sweats, pleuritic pain, post-nasal drainage, rhinitis, rhinorrhea, sinus pressure, weight loss and wheezing. rectal lump Pt states has a hard lump in rectum. [facility] has had hemorrhoids before. labs Here for lab dra tripp. med refills needs refills on Losartin, Pravastatin, and Glyburide.Pt states she has even forgotten to take her meds so she hasn't had them. Pt states she is currently taking Insulin, and her sugars haven't been very good she hasn't had any lows. check up The symptoms beg an 2 months ago. Pt here for check up, staters she cannot remember things, , says she thinks she says something and something completely different comes out, sweats when eating, increased depression, would like to know name of a good gynocologist in [place], needs order for mammogram, would like a blood test done for dementia/ others. States mother about 1 month ago but these things started before mother .Pt states her mother a month ago and she knows she is depressed, but this is different she can't remember anything andd it's not just normal forgetfulness, it's like she will turn on the stove and then forgets it is on, or she will pick something up and put it down and then forgets where she put it, she also states she has a problem with profuse sweatingon her head and face when she eats, her hair gets wet looks like she just got out of the shower. Pt does not remember seeing Dr. Taylor for this issue and that she was prescribed gabapentin. Pt also would like an appt with a gyne in [place] she hasn't seen one in 3 years, she needs refills on some of her meds, she states she has forgotten to take these meds so she hasn't had them. Pt states she feels guilty because she wasn't there when her mother passed, she states she has even quit her job because she just doesn't feel like working. Flu Vaccine would like flu v accine allergic reaction Pt came to win [email or web address] exhibiting allegic reaction, pt itchy, red, clammy, dizzy, nauseated, SOB and pt shaking. Pt taking directly back to room 2, Provider at pts side at this time. Provider gave epi-pen injection and Depo-medrol injection, O2 starte 4 l per n.c. Pt every anxious. B/P 200/98, P110, R26, SPO2 89% before O2. Pt states does not feel right, [facility] called per instruction of Provider. pre op for catarct Pt here for P re Op physical for cataract surgery for rt eye in 2 weeks. vaginal itching Presently the pa tient is experiencing vaginal itching, vaginal irritation and vaginal odor. The patient is postmenopausal. Relevant factors include recent antibiotics. depression The patient does not present with depressed mood or diminished interest or pleasure. hospital f/u Pt here for hosp ital follow up states was in hospital for left hip surgery on 09/20/15 and was in for 14 days was discharged 10/06/15, states had some breathing problems and they put her on a bi-pap.Pt states Dr. Whitehead did her surgery, she states last night was the first night she had to ask for a pain pill, she states she has been doing therapy and it kind of agravated it today. Pt states shewas started on a Bipap machine while in the hosp, she states she has been using it and is very happy with how well it is working, she is sleeping a lot better, and is feeling a lot better, she states she is getting PT at home through the [facility] because she is home bound for now. Cold symptoms Onset: on 2015. The patient describes the cough as productive (of yellow sputum). It occurs persistently. The problem has become gradually worse. Symptoms are aggravated by cold air and lying down. There are no relieving factors. Associated symptoms include cough, dyspnea on exertion, fatigue, fever, hoarseness, nasal congestion, post-nasal drainage, rhinitis, sinus pressure, sore throat, wheezing and ears feel full. Pertinent negatives include heartburn and hemoptysis. Additional information: Currently on Keflex for toe infection. Cold symptoms Onset: 1 day ago . There is no cough present. It occurs persistently. The problem has become gradually worse. There are no aggravating factors. There are no relieving factors. Associated symptoms include fatigue, hoarseness, nasal congestion, post-nasal drainage, rhinitis, sore throat and itchy ears. Pertinent negatives include chills, cough, dyspnea, dyspnea on exertion, epistaxis, fever, heartburn, hemoptysis, night sweats, pleuritic pain, rhinorrhea, sinus pressure, weight loss and wheezing. pre op phys Patient is here for a pre-op physical and her cataract surgery is on the 17 of July decreased hearing Pt c/o decreas ed hearing in Rt ear, states she bought an amplifier and it did not work. Cold symptoms Onset: 1 day ago . The patient describes the cough as productive (of yellow sputum). There are no aggravating factors. There are no relieving factors. Associated symptoms include cough, nasal congestion, rhinitis, sore throat, itchy ears and sores in nose. The patient does not have a history of allergies or asthma. Sinus symptoms (acute) Onset: 1 Day. The severity of the problem is moderate. The problem has worsened. The symptoms are constant. Both sides are affected. Pertinent/initial symptoms include facial pain, facial pressure, sinus congestion, sinus pain and sinus pressure. Denies aggravating factors. Denies relieving factors. Associated symptoms include cough, nasal drainage, otalgia, postnasal drainage, sinus pressure and sore throat. yeast infection States has senior living problems with yeast infection under both breasts that occurs more in the warm weather and Dr. Leger has given her some cream that clears it right up every time, wanting a refill of that today. Anxiety The patient pres ents with anxious/fearful thoughts and restlessness. Additional information: having a procedure soon and needing a refill of anxiety med to get through the testing. problem with inside of mouth Whi te areas in mouth states they are like little pimple that hurt started 3 days ago. Pt also c/o rt ear pain, no drainage, c/o post nasal drainage that tasetes bad. SHe notes that the sores started about three days ago. She says that they were little white area that look like a little pimple and they really hurt. She says that she has some in the back of her throat. She notes some radiation of the pain to the right ear. She says that there is no drainage to the right ear. She also has a lot of post nasal drainage. She has a very bad taste in her mouth. She says that her blood sugars have been high lately. She says that this is her first sign of the infection. She also notes that her vaginal area is with a yeast infection. She says that this is very itchy and irritated. She would like something for this also. er follow up Pt here for ER luz marina lopez up, was in ER in [facility] [place] on 07/18/14, ER visit scanned in. FOLLOW UP ER VISIT Here for ER F john up sores in mouth The symptoms beg an 3 days ago. The symptoms are reported as being moderate. The symptoms occur constantly. sore patches in mouth and also complains of vaginal itching. Has recently been on antibiotics for throat infection. denies any other complaints Sore throat sore gums The symptoms beg an 1 hour ago. woke up today with symptoms , has ear pain , sores around mouth and inside mouth , sore throat , H/A , nasal congestion. Also urine has a strong odor and low back pain. freeze spots Rash The patient pres ents for Rash. This episode began 2 months ago. Affected area(s) is spreading. Additional information: was txd in October and no improvement. ear complaints The symptoms beg an 3 weeks ago. The symptoms are reported as being moderate. The symptoms occur constantly. no pain to rt ear but has a noise that sounds like fan she states. Said she shot a gun before this started. rash under breast patient has ra sh under breast. she has been using Betamethasone Dipropionate Cream that Dr. Leger gave her a couple years ago. This is not helping Patient states the rash villela and hurts. She has had it for 2 weeks. f/u on thumb Pt fractured her thumb 2 weeks agoPt also needs a refill on B/P and cholesterol medication. back pain Onset: 6 months ago. Severity level is 8. Duration: 6 Months. The problem is worsening. It occurs persistently. skin sores The symptoms beg an 2 months ago and generally lasts 2 Months. The symptoms are reported as being moderate. The location is arms and back area. Functional Status Date Functional Assessmen t No Information Instructions Date Instruction Additional Infor dione Educated that antibi otics are not prescribed for viral infections. Related to Acute upper respiratory infection, unspecified INCREASE ORAL FLUIDS Related to Acute upper respiratory infection, unspecified MEDS, EXPOSURE PREVENTION DIS CUSSED Related to Acute upper respiratory infection, unspecified TAKE ONDANSETRON NEEDED Relat ed to Viral gastroenteritis CONTINUE XANAX -PREVENT FALLS Re lated to Anticipatory grieving OBSERVE FOR WORSENIN G OR PERSISTENT SYMPTOMS Related to Anticipatory grieving Take antibiotic as d irected, take all medication even if improved. If you develop symptoms of a yeast infection after antibiotic treatment she may take the fluconazole once, repeat 72 hours if symptoms persist. Controlling your glucose is important to reducing all types of infections including urinary tract infections. Follow-up with your yarn dumper for management. Drink plenty of fluids especially water, wipe front to back, avoid douching, empty the bladder before and immediately following sexual intercourse, and avoid tight fitting clothing. Avoid irritants such as scented feminine products, scented pads or tampons, and scented bath soaps. Monitor for worsening signs and symptoms, return to the clinic or present to the emergency room should your condition worsen. Related to Urinary symptom or sign Continue to follow-u p with your yarn dumper.Monitor your blood sugar at home as directed, and report blood sugars over 300 to your yarn dumper.Limit your alcohol consumption to no more than one glass of wine each day. Related to Glucosuria Begin antibiotics to day and take for the entire prescribed course. DO NOT STOP IT EARLY EVEN IF YOU HAVE IMPROVED. Call the office if you are unable to tolerate the medication. DRINK PLENTY OF WATER. Increase fluid intake to eight 8-ounce glasses of water per day. Empty your bladder frequently and completely. Empty your bladder immediately after sexual intercourse. After using the bathroom, wipe in a front to back motion. Wear only cotton underwear. Avoid douching and bubble baths.Follow-up with Dr. Oquendo in June as scheduled, sooner if needed. Call or return to this clinic as needed. Related to Acute UTI (urinary tract infection) Blow your nose frequ ently and gently. Drink plenty of fluids. Use a vaporizer/humidifier in your bedroom at night. Related to Post-nasal drainage Urine dip results di scussed in clinic. Will call patient with lab urinalysis results. Rest.Fluids.Start Trulicity.Contact yarn dumper office today with update.Follow up with PCP.Return to clinic as needed. Related to Glucosuria Take antibiotic as d irected, take all the medication even if improved. Drink plenty of fluids especially water, wipe front to back, avoid douching, empty the bladder before and immediately following sexual intercourse, and avoid tight fitting clothing. Avoid irritants such as scented feminine products, scented pads or tampons, and scented bath soaps. Related to Acute cystitis with hematuria You should try incre asing fluids, Mucinex DM, throat lozenges, and warm tea with honey for management of sore throat. Analgesics like acetaminophen can help reduce fever, aches, and pains. Warm, moist air, Nasal saline, Hydration, Warm facial packs, Avoidance of nasal irritants (eg, cigarette smoke, indoor and outdoor air pollutants).Wash hands frequently to reduce the risk of transmission. If your condition gets better and then worsens or if you spike a fever greater than 102, follow-up with the clinic, as you may have a secondary bacterial infection. Related to Acute viral syndrome APPLY MUPIROCIN/CHLO RHEXIDINE DIRECTED. Related to Dermatitis Avoid skin irritants Related to Dermatitis DO NOT SCRATCH OR REMOVE ANY SCA BS. Related to Dermatitis PT HAS BEEN SEEN BY DR HERRERA RECENTLYPT REQUESTS REFERRAL TO PAIN CLINIC[facility]-NOTE, 12/25/21 Related to Bulging of lumbar intervertebral disc Goal of treatment di scussed, observe for suicida/homicidall thoughts Related to Anxiety in acute stress reaction Observe for medicati on side effect, Observe for worsening s/s Related to Anxiety in acute stress reaction Encouraged coping ac tivities, counseling-CONTINUE CURRENT MEDS Related to Anxiety in acute stress reaction TAKE CYCLOBENZAPRINE , WARM PACKS, DIRECTED Related to Pain in thoracic spine Increase activity. C ONTINUE CURRENT MEDS Related to Essential (primary) hypertension Follow a low sodium diet. 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, with long-term current use of insulin Rest, warm pack- FOL LOWUP DR HERRERA DIRECTED Related to Radiculopathy of lumbar region Fall and accident precaution Rel ated to Radiculopathy of lumbar region Continue current med ications and treatment planPlan discharge to home when patient ready Related to Urinary tract infection, site not specified OBSERVE FOR WORSENIN G OR PERSISTENT SYMPTOMS Related to Hx of chest pain OBSERVE FOR SIGNS OF EMERGENCY DISCUSSED-GO TO ER Related to Hx of chest pain PROCCED WITH EYELID SURGERY UNDER LOCAL ANESTH Related to Eyelid lesion MONITOR BP AT HOME, CONTINUE CURRENT MEDS Related to Essential (primary) hypertension CONTINUE CURRENT MED S/FOLLOWUP WITH ENDOCRINE CLINIC 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, with long-term current use of insulin LIMIT WEIGHT BEARING- Related to Unspecified injury of left ankle, initial encounter Goal of treatment di scussed, observe for suicidal thoughts Related to Anxiety in acute stress reaction Observe for medicati on side effect, Observe for worsening s/s Related to Anxiety in acute stress reaction Encouraged coping ac tivities, counseling Related to Anxiety in acute stress reaction OBSERVE FOR WORSENIN G OR PERSISTENT SYMPTOMS Related to Chest pain, unspecified OBSERVE FOR SIGNS OF EMERGENCY DISCUSSED-GO TO ER Related to Chest pain, unspecified Goal of treatment di scussed, observe for suicidal thoughts Related to Anxiety disorder, unspecified Observe for medicati on side effect, Observe for worsening s/s-TAKE XANAX Related to Anxiety disorder, unspecified Encouraged coping ac tivities, counseling Related to Anxiety disorder, unspecified You should try incre asing fluids, Mucinex DM, throat lozenges, and warm tea with honey for management of sore throat. Analgesics like acetaminophen and NSAIDs can help reduce fever, aches, and pains. Wash hands frequently to reduce the risk of transmission. If your condition gets better and then worsens or if you spike a fever greater than 102, follow-up with the clinic, as you may have a secondary bacterial infection. Related to Upper respiratory tract infection, unspecified type SEE CT REPORT FROM AND 11/11/18MULTIPLE DISC BULGE-LUMBAR REGIONPT HAS CONTINUED PAIN-REQUESTED REF[facility] Related to Bulging of lumbar intervertebral disc Heat, massage-TAKE F LEXARIL, TRAMADOL DIRECTED Related to Lumbar paraspinal muscle spasm Observe for medication side effe ct Related to Lumbar paraspinal muscle spasm Observe for worsenin g signs and symptoms Related to Lumbar paraspinal muscle spasm Check blood sugar DIRECTED-START TRULICITY-SHANNON Related to Uncontrolled type 2 diabetes mellitus with hyperglycemia TAKE MAG-OX DIREC CLAUDIO-REPEAT LABS IN 2-3 WEEKS Related to Hypomagnesemia Avoid skin irritants Related to Dermatitis APPLY [place] TOP[place] LLY-CLEAN SKIN DAILY WITH HIBICLENS Related to Dermatitis Observe for persistent or worsen ing s/s Related to Dermatitis MEDICATIONS DIRECTED Related to Folliculitis of face Wound Instructions given. Relate d to Folliculitis of face CHANGE MASK TO CLOTH TYPE- ONE PROVIDED TO PT Related to Folliculitis of face CONTINUE CURRENT MEDICATIONS Rel ated to Essential (primary) hypertension FOLLOWUP WITH ENDOCR INE CLINIC AFTER LABS Related to Other specified diabetes mellitus without complications TAKE ALL MEDICATIONS DIRECTED Related to RSV bronchitis GO TO ER IF SHORTNESS OF BREATH OCCURS Related to RSV bronchitis Rest, Proper nutriti on and activity. Weight management Related to Syncope and collapse Observe for signs or symptoms of emergency Related to Syncope and collapse Observe for persiste nt or worsening symptoms Related to Syncope and collapse CONTINUE DISCHARGE MEDS/INSTRUCT IONS Related to RSV bronchitis COUGH HAS WORSENED- SEVEREPT IS UNABLE TO REST OR SLEEP Related to Cough productive of clear sputum PAIN IS WORSE WITH COUGH Related to Mid back pain on left side Observe for signs or symptoms of emergency Related to Cough productive of clear sputum TAKE ZYRTEC/TESSALON , TYLENOL DIRECTED Related to RSV bronchitis GO TO ER FOR SHORTNE SS OF BREATH/WHEEZING/CHEST PAIN OR WORSE CONDITION Related to RSV bronchitis 04/07/19PT WAS SEEN I N ER LAST NIGHT AFTER GEN ITCHING/LIP EDEMAIMPROVED AFTER BENADRYLADVISED TO STOP CIPRO -CHANGED TO MACROBID Related to Urinary tract infection, site not specified PT WAS INSTRUCTED TO TAKE THE CIPRO TABS AND CRANBERRY JUICE Related to Urinary tract infection, site not specified [id number] RESULTS /REPORTS TO BE FAXED TO DR ARMANDO BY SATURDAY OR SATURDAY Related to Pre-op evaluation FOLLOW DR ARMANDO'S INSTRUCTIONS. Related to Pre-op evaluation FOLLOWUP WITH NEUROLOGIST DOYLE MANCILLA Related to Right-sided lacunar infarction Rest, elevation, cold pack Relat ed to Acute pain of left lower extremity Observe for worsenin g s/s and return for such. Related to Acute pain of left lower extremity May use OTC Acetamin ophen 500mg by mouth every 6 hrs PRN. Related to Acute pain of left lower extremity Follow up with Dr. Lizet june (PCP) in one week. Sooner if worsening. 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 INCREASE IN SIZE Related to Skin lesion DO NOT SCRATH LESION S-ESPECIALLY WITH NAILS/TOWEL Related to Skin lesion ADVISED TO TAKE JESUS DRYL/NASAL SPRAY-PT HAS AT HOME Related to Allergic rhinitis due to other allergic trigger, unspecified seasonality APPLY NYSTATIN/TRIAM CINOLONE OINTMENT X 14 DAYS -TWICE DAILY Related to Tinea corporis UA -WITH POSSIBLE VA G CONTAMINANTSCULTURE DID GROW STREP AGALACTIAE->100,000 -AMP OR PCN RECOMMENDEDDUE TO PTS ALLERGIESCIPRO-RX WILL BE SENT TO PHARMACY Related to Urinary tract infection, site not specified CT LUMBAR SPINE WITH SIGNIFICANT DJD/DISC BULGE- L4/L5 STENOSISL5/S1 FORAMINAL COMPROMISE BILAT Related to Back pain CXR-NEG Related to Cough no orthostatic krishnan es-IN BP/PULSENO SYMPTOMS-ALL LABS REVIEWED-NO ANEMIA Related to Dizziness Rest, warm pack Related to Strai n of fascia of lower back, initial encounter Observe for worsening s/s Relate d to Strain of fascia of lower back, initial encounter OTC acetaminophen us e encouraged, with food Related to Strain of fascia of lower back, initial encounter Follow up with PCP i f symptoms persist. Pt voices understanding. Related to Strain of fascia of lower back, initial encounter Increase activity. Related to Es sential (primary) hypertension Follow a low sodium diet. Relate d to Essential (primary) hypertension Patient to have a DE XA scan done to screen for osteoporosis. Related to Postmenopausal status NOS Increase activity. Related to Hy perlipidemia, unspecified Follow a low sodium, low saturated fat diet. Related to Hyperlipidemia, unspecified The patient was inst ructed to Macrobid 5 days ,Increase fluids Related to UTI Kegel exercises were explained to the patient. Related to UTI Educated that antibi otics are not prescribed for viral infections. Related to Common cold Discussed use of dirk ine gargles,Tylenol for pain, OTC cough meds prn Related to Common cold Instructed to take M acrobid x 5 days, increase fluids, RTC if no better. Related to UTI Start Victoza s/q da shiva, as directed. RTC for f/u visit next scheduled appt Related to Other specified diabetes mellitus without complications Instructed to take a ll of Macrobid, RTC if no better/worse w/tx. Related to UTI Patient instructed o n use of saline sprays. Related to Acute maxillary sinusitis, unspecified medication as prescr ibed f/u with pmd rtc prn Related to Acute maxillary sinusitis, unspecified refer to ortho per p t request for trigger finger. Related to Trigger finger Rest, ice, elevation , start colchicine, check lab, XR. Related to Pain in joints of left hand Finish all antibiotics as prescr ibed. Related to Acute bronchitis, unspecified Continue current medications Rel ated to Acute bronchitis, unspecified Increase fluids Related to Acute bronchitis, unspecified Avoid triggers Related to Acute bronchitis, unspecified Handout given on col d, cough treatment, care, RTC if worse, no better. Related to Acute bronchitis, unspecified Handout given on col d, cough treatment, care, RTC if worse, no better. Related to Acute bronchitis, unspecified Anusol bid until elisha n relieved, avoid constipation/straining. Related to Thrombosed hemorrhoid Pt is going to incre ase the effexor to 150 mg daily and also to be [facility]. She will be made an appointment. She is also going to also be referred to see computer help desk representative for pap smear and also to cont with her current meds and have labs done soon. PT voiced understanding. Related to Moderate single current episode of major depressive disorder Pt got flu shot Related to Encou nter for immunization Increased effexor to 2 tabs dly. Related to Moderate single current episode of major depressive disorder Will call pt with ap pt for memory clinic in [place] Related to Memory loss of unknown cause Will call pt with appt for gyne. Related to Gynecologic disorder Epi-Pen 0.3 mg given into L. Outer thigh, Depo-medrol 80mg IM into L buttock, ambulance called to transport to [facility] Related to Anaphylactic shock, unspecified, initial encounter Pt would like to sta rt Monostat over the counter. Related to Candidiasis of vulva and vagina Pt cleared for surgery Related t o Encounter for other preprocedural examination Pt cleared for surgery Related t o Cataract Pt started on Bipap while in hosp for surgical proced. Related to Toxic effect of carbon dioxide, undetermined, sequela Cotn using bipap as directed. Re lated to Toxic effect of carbon dioxide, undetermined, sequela Pt started on Bipap while in hosp for surgical procedure. Related to Sleep apnea Cont using Bipap as directed Rel ated to Sleep apnea Use Flonase, increas e fluids, rest, f/u if no better in 2-3 days. Related to Other acute sinusitis Will go ahead w/ Abx w/degree of illness and rales of R.lung heard. Related to Rales Med refilled per request, f/u in 6mos. Related to Major depressive disorder, single episode, unspecified Start Levaquine 500mg 1 qd x 10 days. Related to Acute bronchitis, unspecified Routine labs ordered since due, gets refills on meds from Dr. Leger Related to Other specified diabetes mellitus without complications see plan Related to Acute bronchitis Saline spray, OTC an tihistamines, Tylenol, Flonase script sent, f/u prn Related to Acute sinusitis Refilled antifungal cream, hygiene discussed, f/u prn Related to Candidiasis of skin and nails Gave short course of benzo for upcoming procedure/testing,f/u prn Related to Anxiety see plan Related to Herpe tic stomatitis nystatin swish and swallow Relat ed to Oral candidiasis diflucan 150mg x 1 dose Related to Oral candidiasis levaquin antibiotic, increase fluids and rest, rtc if no improvement Related to Urinary Tract Infection acyclovir for 7 days , rtc if no improvement Related to Herpes simplex freeze areas today, areas will scab over try not to scratch Related to Actinic keratosis f/u as needed Related to Actin ic keratosis pt is to have olegario shearer rechecked, may refer Related to Subjective tinnitus will try antihistamine Related t o Subjective tinnitus schedule appointment for cryotherapy, bacrim for infected areas Related to Actinic keratosis topical antifungal t wice a day for 2 weeks, f/u if no improvement Related to Yeast infection of the skin keep areas clean and dry Related to Yeast infection of the skin discussed keeping di abetes under better control, ada diet and exercise Related to Yeast infection of the skin will try brisdelle f or one month, f/u if no improvement Related to Hot flashes Well controlled, recheck in 6 mo nths Related to Hyperlipidemia Fair control, follow ed by Dr. Chavez, will recheck labwork in 6 months Related to Diabetes mellitus Recheck in 6 months Related to B enign essential hypertension Fair control, has be en off cozaar for 2 weeks, restart medication Related to Benign essential hypertension Dietary counseling provided Rela claudio to Benign essential hypertension Will give course of Bactrim DS for 3 days Related to Urinary Tract Infection Increase fluids Related to Urina ry Tract Infection Will give pyridium for 2 days Re lated to Urinary Tract Infection Assessments Type Assessment Date No Information Patient Care Teams Name Effective Dates (start - stop) Status Members No Information
--- OUTSIDE RECORDS SUMMARY | 2024-09-09 10:42 | XMS_ITS | Encounter Summary ---
Author Organization [facility] Address [address] [place] [address] Care Team Providers Care Car Unloader Helper Name Role Phone Hellen Jarquin PA-C Primary Care Provider [phone] Encounter Details Date Type Department Care Team (Late st Contact Info) Description 02/01/2023 Therapy Plan [facility] [address] [place], [place] [id number] Wade Altamirano MD [address] [place] [id number] Social History Tobacco Use Types Packs/Day Years Used Date Smoking Tobacco: Never Smokeless Tobacco: Never Alcohol Use Standard Drinks/Week Comments No 0 (1 standard drink = 0.6 oz pur e alcohol) OASIS D0700: Social Isolation Answer Da te Recorded Frequency of experiencing loneliness or isolatio n Never 12/19/2022 OASIS A1250: Transportation Answer Date Recorded Lack of Transportation (Medical) Yes 12/19/2022 Lack of Transportation (Non-Medical) No 12/19/2022 Patient Unable or Declines to Respond No 12/19/2022 OASIS B1300: Health Literacy Answer Hussain e Recorded Frequency of needing help to read materials from doctor or pharmacy Never 12/19/2022 Humiliation, Afraid, Rape, and Kick questionnair e Answer Date Recorded Within the last year, have y ou been afraid of your partner or ex-partner? No 11/16/2022 Within the last year, have y ou been humiliated or emotionally abused in other ways by your partner or ex-partner? No Within the last year, have y ou been kicked, hit, slapped, or otherwise physically hurt by your partner or ex-partner? No 11/16/2022 Within the last year, have y ou been raped or forced to have any kind of sexual activity by your partner or ex-partner? No 11/16/2022 Social Connection and Isolat ion Panel [NHANES] Answer Date Recorded In a typical week, how many times do you talk on the phone with family, friends, or neighbors? More than three times a week 09/16/2022 How often do you get togethe r with friends or relatives? More than three times a week 09/16/2022 How often do you attend chur ch or mandaen services? 1 to 4 times per year 09/16/2022 Do you belong to any clubs o r organizations such as spiritism groups, unions, fraternal or athletic groups, or school groups? Yes 09/16/2022 How often do you attend meet ings of the clubs or organizations you belong to? More than 4 times per year 09/16/2022 Are you , , di vorced, , never , or living with a partner? 09/16/2022 AUDIT-C Answer Date Recorded Q1: How often do you have a drink containing alcohol? Never 09/16/2022 Q2: How many drinks containi ng alcohol do you have on a typical day when you are drinking? Patient does not drink Q3: How often do you have si x or more drinks on one occasion? Never 09/16/2022 Overall Financial Resource Strain (CARDIA) Answe r Date Recorded How hard is it for you to pa y for the very basics like food, housing, medical care, and heating? Not very hard 11/16/2022 PHQ-2 Answer Date Recorded Patient Health Questionnaire-2 Score 0 01/25/2023 [facility] - Occupational Stress Questionnaire Answer Date Recorded Do you feel stress - tense, restless, nervous, or anxious, or unable to sleep at night because your mind is troubled all the time - these days? Not at all 09/16/2022 Exercise Vital Sign Answer Date Recorde d On average, how many days pe r week do you engage in moderate to strenuous exercise (like a brisk walk)? 0 days 09/16/2022 On average, how many minutes do you engage in exercise at this level? 0 min 09/16/2022 Hunger Vital Sign Answer Date Recorded Within the past 12 months, y ou worried that your food would run out before you got the money to buy more. Never true 11/17/19 23 Within the past 12 months, t he food you bought just didn't last and you didn't have money to get more. Never true 11/16/2022 PRAPARE - Transportation Answer Date Re corded In the past 12 months, has l ack of transportation kept you from medical appointments or from getting medications? No 11/03 In the past 12 months, has l ack of transportation kept you from meetings, work, or from getting things needed for daily living? No 11/16/2022 Housing Stability Vital Sign Answer Hussain e Recorded In the last 12 months, was t here a time when you were not able to pay the mortgage or rent on time? No 11/16/2022 In the last 12 months, how many places have you lived? 1 11/16/2022 In the last 12 months, was t here a time when you did not have a steady place to sleep or slept in a assisted (including now)? No 11/16/2022 Comments No Sex and Gender Information Value Date Recorded Sex Assigned at Female 05/31/2024 8:39 PM CERTIFIED ATHLETIC TRAINER Legal Sex Female 10:55 PM CERTIFIED ATHLETIC TRAINER Gender Identity Female 05/31/2024 8:39 PM CERTIFIED ATHLETIC TRAINER Sexual Orientation Not on file documented as of this encounter Functional Status * Are you deaf or do you have serious difficulty hearing Answer Date of Assessment Author Status No 11/16/2022 3:08 PM Karin Cheek RN Active * Are you blind or do you have serious difficulty seeing, even when wearing glasses? Answer Date of Assessment Author Status No 11/16/2022 3:08 PM Karin Cheek RN Active * Do you have serious difficulty walking or climbing stairs? Answer Date of Assessment Author Status Yes 11/16/2022 3:08 PM Karin Cheek RN Active * Do you have difficulty dressing or bathing? Answer Date of Assessment Author Status No 11/16/2022 3:08 PM Karin Cheek RN Active * Because of a physical, mental, or emotional condition, do you have difficulty doing errands alone such as visiting a doctor's office or shopping? Answer Date of Assessment Author Status No 11/16/2022 3:08 PM Karin Cheek RN Active * Calculated C-SSRS Risk Score (Lifetime/Recent) Answer Date of Assessment Author Status No Risk Indicated 02/04/2023 8:03 PM Mary Garcia RN Active * [place] Suicide Severity Rating Scale (Screener/Recent Self-Report) Question Answer Date of Assessment Author Status 1. Wish to be (Past 1 Month) No 02/04/2023 8:03 PM Mary Garcia RN Active 2. Non-Specific Active Suicidal Thoughts (Past 1 Month) No 02/04/2023 8:03 PM Mary Garcia RN Active 6. Suicidal Behavior (Lifetime) No 02/04/2023 8:03 PM Mary Garcia RN Active documented as of this encounter Mental Status * Because of a physical, mental, or emotional condition, do you have serious difficulty concentrating, remembering, or making decisions? 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 difficile Comment:Isolation period completed 11/15/2022 02/05/202303/25 7:41 AM CERTIFIED ATHLETIC TRAINER COVID-19 Rule Out 02/04/2023 02/04/2023 02/04/2023 8:49 PM CDT COVID-19 Rule Out 02/05/2023 02/05/2023 02/05/2023 7:41 PM CDT COVID-19 Rule Out 03/24/2023 03/24/2023 03/24/2023 3:57 PM CERTIFIED ATHLETIC TRAINER C. difficile 05/03/2023 05/03/2023 01/24/2024 7:56 AM CDT COVID-19 Rule Out 01/23/2024 01/23/2024 01/23/2024 6:41 PM CDT COVID-19 Rule Out 01/25/2024 01/25/2024 01/26/2024 2:22 PM CDT C. difficile 01/30/2024 01/30/2024 03/05/2024 12:0 2 PM CDT COVID-19 Rule Out 03/05/2024 03/05/2024 03/05/2024 2:05 PM CDT C. difficile 04/13/2024 04/13/2024 06/09/2024 9:04 AM CERTIFIED ATHLETIC TRAINER C. difficile 06/27/2024 06/27/2024 documented as of this encounter Care Teams Car Unloader Helper Relationship Specialty Start Date End Date Hellen Jarquin PA-C [address] [place] [address] [address] [place] [address] PCP - General PHYSICIAN CHANCERY CLERK 08/18/22 documented as of this encounter
--- OUTSIDE RECORDS SUMMARY | 2024-09-09 10:42 | XMS_ITS | Encounter Summary ---
Author Organization [facility] Address [facility] [place] [address] Care Team Providers Care Equipment Validation Specialist Name Role Phone Hellen Jarquin PA-C Primary Care Provider [phone] Encounter Details Date Type Department Care Team (Late st Contact Info) Description 03/25/2024 [employer] Message Enc [facility] [employer] [address] [id number] Company, [facility] Provider referral Social History Tobacco Use Types Packs/Day Years [...] materials from doctor or pharmacy Never 12/19/2022 B1300 Health Literacy Answer Date Recor ded How often do you need to hav e someone help you when you read instructions, pamphlets, or other written material from your doctor or pharmacy? Never 01/30/2024 [facility] Utilities Answer Date Recorded In the past 12 months has e electric, gas, oil, or water company threatened to shut off services in your home? No 03/05/2024 Humiliation, Afraid, Rape, and Kick questionnair e Answer Date Recorded Within the last year, have y ou been afraid of your partner or ex-partner? No 03/05/2024 Within the last year, have y ou been humiliated or emotionally abused in other ways by your partner or ex-partner? No Within the last year, have y ou been kicked, hit, slapped, or otherwise physically hurt by your partner or ex-partner? No 03/05/2024 Within the last year, have y ou been raped or forced to have any kind of sexual activity by your partner or ex-partner? No 03/05/2024 Social Connection and Isolat ion Panel [NHANES] Answer Date Recorded In a typical week, how many times do you talk on the phone with family, friends, or neighbors? Patient declined 01/30/2024 How often do you get togethe r with friends or relatives? More than three times a week 01/30/2024 How often do you attend [facility] or hinduism services? More than 4 times per year 01/30/2024 Do you belong to any clubs o r organizations such as latter-day groups, unions, fraternal or athletic groups, or school groups? No 01/30/2024 How often do you attend meet ings of the clubs or organizations you belong to? Never 01/30/2024 Are you , , di vorced, , never , or living with a partner? 01/30/2024 AUDIT-C Answer Date Recorded Q1: How often do you have a drink containing alc ohol? Monthly or less 01/30/2024 Q2: How many drinks containi ng alcohol do you have on a typical day when you are drinking? 1 or 2 01/30/2024 Q3: How often do you have si x or more drinks on one occasion? Never 01/30/2024 Overall Financial Resource Strain (CARDIA) Answe r Date Recorded How hard is it for you to pa y for the very basics like food, housing, medical care, and heating? Not very hard 03/05/2024 PHQ-2 Answer Date Recorded Patient Health Questionnaire-2 Score 0 02/13/2024 [facility] - Occupational Stress Questionnaire Answer Date Recorded Do you feel stress - tense, restless, nervous, or anxious, or unable to sleep at night because your mind is troubled all the time - these days? Only a little 01/30/2024 Exercise Vital Sign Answer Date Recorde d On average, how many days pe r week do you engage in moderate to strenuous exercise (like a brisk walk)? 0 days 01/30/2024 On average, how many minutes do you engage in exercise at this level? 0 min 01/30/2024 Hunger Vital Sign Answer Date Recorded Within the past 12 months, y ou worried that your food would run out before you got the money to buy more. Never true 03/05/20 24 Within the past 12 months, t he food you bought just didn't last and you didn't have money to get more. Never true 03/05/2024 PRAPARE - Transportation Answer Date Re corded In the past 12 months, has l ack of transportation kept you from medical appointments or from getting medications? No 02/05 In the past 12 months, has l ack of transportation kept you from meetings, work, or from getting things needed for daily living? No 03/05/2024 Housing Stability Vital Sign Answer Hussain e Recorded In the last 12 months, was t here a time when you were not able to pay the mortgage or rent on time? No 03/24/2023 In the last 12 months, how many places have you lived? 1 03/24/2023 In the last 12 months, was t here a time when you did not have a steady place to sleep or slept in a long-term (including now)? No 03/24/2023 Housing Stability Vital Sign Answer Hussain e Recorded In the last 12 months, was t here a time when you were not able to pay the mortgage or rent on time? No 03/05/2024 In the past 12 months, how m any times have you moved where you were living? 1 03/05/2024 At any time in the past 12 m [facility], were you homeless or living in a long-term (including now)? No 03/05/2024 Comments No Sex and Gender Information Value Date Recorded Sex Assigned at Female 05/31/2024 8:39 PM AUTOMOBILE RENTAL REPRESENTATIVE Legal Sex Female 10:55 PM AUTOMOBILE RENTAL REPRESENTATIVE Gender Identity Female 05/31/2024 8:39 PM AUTOMOBILE RENTAL REPRESENTATIVE Sexual Orientation Not on file documented as of this encounter Functional Status * Are you deaf or do you have serious difficulty hearing Answer Date of Assessment Author Status No 03/05/2024 10:19 PM CDAsuncion Walton RN Active * Are you blind or do you have serious difficulty seeing, even when wearing glasses? Answer Date of Assessment Author Status No 03/05/2024 10:19 PM Asuncion Worrell RN Active * Do you have serious difficulty walking or climbing stairs? Answer Date of Assessment Author Status No 03/05/2024 10:19 PM Asuncion Worrell RN Active * Do you have difficulty dressing or bathing? Answer Date of Assessment Author Status Yes 03/05/2024 10:19 PM Asuncion Worrell RN Active * Because of a physical, mental, or emotional condition, do you have difficulty doing errands alone such as visiting a doctor's office or shopping? Answer Date of Assessment Author Status Yes 03/05/2024 10:19 PM Asuncion Worrell RN Active documented as of this encounter Mental Status * Because of a physical, mental, or emotional condition, do you have serious difficulty concentrating, remembering, or making decisions? Answer Entry Date Author Status Yes 03/05/2024 10:19 PM Asuncion Worrell RN Active documented in this encounter Plan of Treatment Not on file documented as of this encounter Goals Goal Patient Goal Type Associated Problems Recent Progress Patient-Stated? 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, ACCOUNTS SPECIALIST documented as of this encounter Visit Diagnoses Not on filedocumented in this encounter Additional Health Concerns Infection Onset Date Last Indicated Resolved Time C. difficile 04/13/2024 04/13/2024 06/09/2024 9:04 AM AUTOMOBILE RENTAL REPRESENTATIVE C. difficile 06/27/2024 06/27/2024 documented as of this encounter Care Teams Equipment Validation Specialist Relationship Specialty Start Date End Date Hellen Jarquin PA-C [address] [place] [address] PCP - General PHYSICIAN SHEET METAL APPRENTICE 08/18/22 documented as of this encounter
--- OUTSIDE RECORDS SUMMARY | 2024-09-09 10:43 | XMS_ITS | Clinical Summary ---
Author Organization [facility] Address [address] [place] [address] Care Team Providers Care Sql Architect Name Role Phone Darlene Li PA-C Primary Care Provider [phone] Allergies Active Allergy Reactions Criticality Noted Date Comments Albuterol Syncope 12/05/2018 Aspirin Swelling,Hives 12/05/2018 Reaction: Hives, , Ciprofloxacin Hives 07/25/2021 Codeine Swelling,Other (see comment) 12/05/2018 Tolerated multiple doses of norco 12/05 Reaction: Unknown, , Ibuprofen Nausea and Vomiting,Nausea Only,Vomiting 12/05/2018 Reaction: Nausea, Vomiting, , Penicillins Swelling,Hives 12/05/2018 Reaction: Hives, , Pentazocine Unknown Spinach Unknown 01/26/2024 Sulfa Antibiotics Unknown 10/04/2011 Medications clopidogrel (PLAVIX) 75 MG tabletIndications: anticoagulant Take 1 tablet (75 mg total) by mouth daily. 30 tablet 10/18/19 23 Active pravastatin (PRAVACHOL) 40 MG tabletIndications: Hyperlipidemia Take 1 tablet (40 mg total) by mouth daily. Indications: High Amount of Fats in the Blood 11/22/19 Active glipiZIDE (GLUCOTROL) 5 MG tablet Take 1 tablet (5 mg total) by mouth daily. 02/22/20 23 Active buPROPion XL (WELLBUTRIN XL) 150 MG 24 hr tablet Take 1 tablet (150 mg total) by mouth nightly at bedtime. 12/09/19 24 Active apixaban (ELIQUIS) 5 MG tabletIndications: Pulmonary Embolism Take 1 tablet (5 mg total) by mouth 2 (two) times daily. Indications: Blockage of Blood Vessel to Lung by a Particle 60 tablet 02/08/20 24 Active insulin glargine (LANTUS) 100 UNIT/ML injection (PEN) Inject 40 Units into the skin nightly at bedtime. Active nystatin (MYCOSTATIN) cream Apply topically 2 (two) times a day. 04/13/20 24 Active fludrocortisone (FLORINEF) 0.1 MG tablet Take 1 tablet (0.1 mg total) by mouth daily. Active venlafaxine XR (EFFEXOR-XR) 150 MG 24 hr capsule Take 1 capsule (150 mg total) by mouth daily. 05/01/20 24 Active LORazepam (ATIVAN) 0.5 MG tabletIndications: Anxiety Take 1 tablet (0.5 mg total) by mouth every 6 (six) hours as needed for Anxiety. 15 tablet 05/14/19 25 Active acetaminophen (TYLENOL) 500 MG tablet Take 1 tablet (500 mg total) by mouth every 6 (six) hours as needed for Pain. Active HYDROcodone-acetam inophen (NORCO) 5-325 MG tabletIndications: Acute Pain < 7 Day Supply Take 1-2 tablets by mouth every 4 (four) hours as needed for Pain. Indications: Acute Pain < 7 Day Supply 30 tablet 06/09/19 25 Active naloxone (NARCAN) 4 MG/0.1ML nasal spray 1 spray by Nasal route as needed for Opioid reversal. may repeat every 2 to 3 minutes in alternating nostrils until medical assistance becomes available 1 each 06/09/19 25 026 Active ondansetron (ZOFRAN-ODT) 4 MG disintegrating tablet Take 1 tablet (4 mg total) by mouth every 8 (eight) hours as needed for Nausea. 20 tablet 07/01/19 25 Active Active Problems Problem Noted Date Diagnosed Date Weakness 05/03/2024 Acute metabolic encephalopathy 03/05/2024 C. difficile colitis 01/30/2024 Pyelonephritis 01/23/2024 Recurrent Clostridioides difficile diarrhea 11/2023 Incontinence of feces, unspecified fecal inconti nence type 06/12/2023 Hyperglycemia due to diabetes mellitus ([facility]) 03/27/2023 Type 2 diabetes mellitus wit hout complication, unspecified whether terminal carman insulin use ([facility]) 03/25/20232022 Diabetes mellitus due to und erlying condition with hyperglycemia ([facility]) 03/25/2023 Uncontrolled type 2 diabetes mellitus with hyperglycemia ([facility]) 03/24/2023 Clostridium difficile diarrhea 02/07/2023 C. difficile enteritis 11/15/2022 Recurrent Clostridium difficile diarrhea 023 Altered mental status 10/31/2022 Colitis 10/15/2022 Pulmonary embolism ([facility]) 09/30/2022 Physical deconditioning 09/08/2022 Diverticulitis 09/01/2022 Acute diverticulitis 08/31/2022 Knee pain, acute 12/05/2018 Hypercholesteremia Diabetes mellitus ([facility]) History of stroke Resolved Problems Problem Noted Date Diagnosed Date Resolved Date Colitis due to Clostridium difficile 10/14/2022 10/15/2022 Encounters Date Type Department Care Team Description 08/28/2024 [address] [place] [address] Chidi Reis MD Medication Request; Follow Up Call (Peg called back. ); Callback 08/19/2024 1:48 PM CDT - 08/19/2024 11:59 PM CDT Hospital Encounter [facility] [address] [place], [place] [id number] Darlene Li PA-C Discharge Disposition: Home or Self Care (Routine Discharge) 08/19/2024 Travel 08/04/2024 2:00 PM CDT Telemedicine [address] [place] [address] Chidi Reis MD Diarrhea 07/15/2024 Telephone [facility] [address] [place], [place] [id number] Digna Herman, RN Follow Up Call 07/13/2024 9:11 AM CDT - 07/13/2024 11:59 PM CDT Hospital Encounter [facility] [address] [place] [address] Vishnu Olsen, Discharge Disposition: Home or Self Care (Routine Discharge) 07/13/2024 Travel 07/10/2024 Scan [facility] INFO [facility] Scanned, [facility] [address] [phone] Chidi Reis MD Medication Information; Returned Call; Callback (Pt req a callback) 07/07/[address] [phone] Chidi Reis MD Medication Information 07/04/2024 11:00 AM [employer] [employer] Home Care Visit [address] [place] [address] [place] [address] Lisandra Johnson RN SN NON ADMIT SOC 07/03/2024 Hospital Follow-up Call [facility] [address] [place] [address] Bailey Bailey LPN Follow Up Call ([facility] 06/26-07/01/24) 06/30/[address] [phone] Chidi Reis MD Information 06/26/2024 11:26 AM [employer] [employer] - 07/01/2024 6:14 PM [facility] Hospital Encounter [facility] [address] [place] [address] Tessa Carlton MD Harris, Michael, MD Mahtani, Andrew, MD Diarrhea Discharge Disposition: Home with Home Health Care 06/26/2024 Travel 06/25/[address] [phone] Chidi Reis MD Question 06/22/2024 8:15 AM [employer] - 06/22/2024 11:59 PM [employer] Hospital Encounter [facility] [address] [place] [address] Vishnu Olsen, DO Discharge Disposition: Home or Self Care (Routine Discharge) 06/22/2024 Travel 06/12/2024 12:52 PM [employer] - 06/12/2024 11:59 PM [employer] Hospital Encounter [facility] [address] [place] [address] Vishnu Olsen, Daisy Fernando, OT Fx Metacarpal Bone Discharge Disposition: Home or Self Care (Routine Discharge) 06/12/2024 Travel from Last 3 Months Immunizations Immunization Administration Dates Next Due Fluzone (IIV3, Trivalent, 0.5 ML Prefilled Syrin ge) 01/28/2024 Fluzone 6 Months+ Quad (0.5 mL Prefilled Syringe ) 02/11/2023 Tdap (Boostrix) 05/31/2024 Family History Medical History Relation Comments Heart Attack Father Hypertension Father No Known Problems Mother Relation Status Comments Father Maternal Grandfather Maternal Grandmother Mother Paternal Grandfather Paternal Grandmother Social History Tobacco Use Types Packs/Day Years Used Date Smoking Tobacco: Never Smokeless Tobacco: Never Tobacco Cessation:Counseling Given: No Alcohol Use Standard Drinks/Week Comments No 0 [...] material from your doctor or pharmacy? Never 04/16/2024 [facility] Utilities Answer Date Recorded In the past 12 months has e [place], gas, oil, or water company threatened to shut off services in your home? No 06/26/2024 Humiliation, Afraid, Rape, and Kick questionnair e Answer Date Recorded Within the last year, have y ou been afraid of your partner or ex-partner? No 06/26/2024 Within the last year, have y ou been humiliated or emotionally abused in other ways by your partner or ex-partner? No Within the last year, have y ou been kicked, hit, slapped, or otherwise physically hurt by your partner or ex-partner? No 06/26/2024 Within the last year, have y ou been raped or forced to have any kind of sexual activity by your partner or ex-partner? No 06/26/2024 Social Connection and Isolat ion Panel [NHANES] Answer Date Recorded In a typical week, how many times do you talk on the phone with family, friends, or neighbors? More than three times a week 04/16/2024 How often do you get togethe r with friends or relatives? More than three times a week 04/16/2024 How often do you attend [facility] or baptist services? More than 4 times per year 04/16/2024 Do you belong to any clubs o r organizations such as muslim groups, unions, fraternal or athletic groups, or school groups? No 04/16/2024 How often do you attend meet ings of the clubs or organizations you belong to? Never 04/16/2024 Are you , , di vorced, , never , or living with a partner? 04/16/2024 AUDIT-C Answer Date Recorded Q1: How often do you have a drink containing alc ohol? Monthly or less 04/16/2024 Q2: How many drinks containi ng alcohol do you have on a typical day when you are drinking? 1 or 2 04/16/2024 Q3: How often do you have si x or more drinks on one occasion? Never 04/16/2024 Overall Financial Resource Strain (CARDIA) Answe r Date Recorded How hard is it for you to pa y for the very basics like food, housing, medical care, and heating? Not hard at all 06/26/2024 PHQ-2 Answer Date Recorded Patient Health Questionnaire-2 Score 0 08/04/2024 [facility] of Occupat ional [facility] - Occupational Stress Questionnaire Answer Date Recorded Do you feel stress - tense, restless, nervous, or anxious, or unable to sleep at night because your mind is troubled all the time - these days? Only a little 05/03/2024 Exercise Vital Sign Answer Date Recorde d On average, how many days pe r week do you engage in moderate to strenuous exercise (like a brisk walk)? 0 days 04/16/2024 On average, how many minutes do you engage in exercise at this level? 0 min 04/16/2024 Hunger Vital Sign Answer Date Recorded Within the past 12 months, y ou worried that your food would run out before you got the money to buy more. Never true 06/26/19 25 Within the past 12 months, t he food you bought just didn't last and you didn't have money to get more. Never true 06/26/2024 PRAPARE - Transportation Answer Date Re corded In the past 12 months, has l ack of transportation kept you from medical appointments or from getting medications? No 06/07 In the past 12 months, has l ack of transportation kept you from meetings, work, or from getting things needed for daily living? No 06/26/2024 Housing Stability Vital Sign Answer Hussain e [...] place to sleep or slept in a penitentiary (including now)? No 03/24/2023 Housing Stability Vital Sign Answer Hussain e Recorded In the last 12 months, was t here a time when you were not able to pay the mortgage or rent on time? No 06/26/2024 In the past 12 months, how m any times have you moved where you were living? 0 06/26/2024 At any time in the past 12 m [facility], were you homeless or living in a penitentiary (including now)? No 06/26/2024 Comments No Sex and Gender Information Value Date Recorded Sex Assigned at Female 05/31/2024 8:39 PM [employer] Legal Sex Female 10:55 PM [employer] Gender Identity Female 05/31/2024 8:39 PM [employer] Sexual Orientation Not on file Last Filed Vital Signs Vital Sign Reading Time Taken Comments Blood Pressure 123/79 07/01/2024 11:10 AM [employer] Pulse 119 07/01/2024 11:10 AM [employer] nurse notified Temperature 36.3 C (97.3 F) 07/01/2024 11:10 AM [employer] Respiratory Rate 18 07/01/2024 11:1 0 AM [employer] Oxygen Saturation 93% 07/01/2024 11: 10 AM [employer] Inhaled Oxygen Concentration - - Weight 75.5 kg (166 lb 7.2 oz) 07/01/2024 4:55 AM [employer] Height 160 cm (5' 3 ) 06/26/2024 3:39 PM [employer] Body Mass Index 29.48 06/26/2024 3:39 PM [employer] Plan of Treatment Health Maintenance Due Date Last Done Comments Kidney Health Evaluation 1944 Diabetes: Retinopathy Eye Exam 1962 Pneumococcal Vaccine: 50+ Years (1 of 2 - PCV) 07/10/1963 Zoster Vaccines (1 of 2) 1994 Annual Medicare Wellness Visit 2009 Dexa Scan (General) 2009 RSV Immunization or 60+ Years (1 - 1-dose 75+ series) 07/10/2019 COVID-19 Vaccine ( season) 2024 04/12/2021, 07/04/2020, 06/03/2020 Hemoglobin A1C 08/01/2024 05/03/2024, 01/05, 01/24/2024, Additional history exists Lipid Panel 01/25/2025 01/26/2024, 01/05, 10/14/2022 DTaP, Tdap and Td Vaccines (2 - Td or Tdap) 05/31/2034 05/31/2024 PHQ-2 (Physician [place]) Completed 08/04/2024 Meningococcal B Vaccine Aged Out No l onger eligible based on patient's age to complete this topic Meningococcal Vaccine Aged Out No melinda jorge eligible based on patient's age to complete this topic RSV Immunizations Under 20 Months Aged Out No longer eligible based on patient's age to complete this topic Goals Goal Patient Goal Type Associated Problems Recent Progress Patient-Stated? 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 Devices Implanted Type Area Director Of Claims Device Identifier Shelf Expiration Date Model / Serial / Lot 1.5 6 Hole Plate Implanted:Qty: 1 on 06/09/2024 by Vishnu Olsen DO at [facility] Right: Hand DEPUY SYNTHES .003 / / Description:Implanted to fou rth metacarpal 1.5 Cortex Screw 11mm Implanted:Qty: 2 on 06/09/2024 by Vishnu Olsen DO at [facility] Right: Hand [employer] SY[employer]ES .111 / / Description:Implanted to fou rth metacarpal 1.5 Cortex Screw 12mm Implanted:Qty: 1 on 06/09/2024 by Vishnu Olsen DO at [facility] Right: Hand [employer] SY[employer]ES .112 / / Description:Implanted to fou rth metacarpal 1.5 Cortex Screw 10mm Implanted:Qty: 1 on 06/09/2024 by Vishnu Olsen DO at [facility] Right: Hand [employer] SY[employer]ES .110 / / Description:Implanted to fou rth metacarpal 1.5 Cortex Screw 9mm Implanted:Qty: 1 on 06/09/2024 by Vishnu Olsen DO at [facility] Right: Hand [employer] SY[employer] .109 / / Description:Implanted to fou rth metacarpal 1.5 Locking Screw 14mm Implanted:Qty: 1 on 06/09/2024 by Vishnu Olsen DO at [facility] Right: Hand [employer] SY[employer] .014 / / Description:Implanted to fou rth metacarpal Explanted Type Area Director Of Claims Device Identifier Shelf Expiration Date Model / Serial / Lot 1.5 Cortex Screw 12mm Explanted:Qty: 1 on 06/09/2024 by Vishnu Olsen DO at [facility] Right: Hand DEPUY SYNTHES 02.214.112 / / Description:Fourth metacarpa l Procedures Procedure Name Priority Date/Time Associated Diagnosis Comments CT CHEST HIGH RESOLUTION WO CON Routine 08/19/2024 2:41 PM CDT Other nonspecific abnormal finding of lung field XR HAND RT 3V Routine 07/13/2024 9:18 AM CDT Closed fracture of shaft of fourth metacarpal bone of right hand POCT GLUCOSE - BALLARD DOCKED DEVICE Routine 07/01/2024 4:25 PM [employer] POCT GLUCOSE - BALLARD DOCKED DEVICE Routine 07/01/2024 11:23 AM [employer] POCT GLUCOSE - BALLARD DOCKED DEVICE Routine 07/01/2024 7:00 AM [employer] POCT GLUCOSE - BALLARD DOCKED DEVICE Routine 06/30/2024 8:33 PM [employer] POCT GLUCOSE - BALLARD DOCKED DEVICE Routine 06/30/2024 5:01 PM [employer] POCT GLUCOSE - BALLARD DOCKED DEVICE Routine 06/30/2024 11:27 AM [employer] COMPREHENSIVE METABOLIC PANEL Routine 06/30/2024 10:31 AM [employer] POCT GLUCOSE - BALLARD DOCKED DEVICE Routine 06/30/2024 7:23 AM [employer] POCT GLUCOSE - BALLARD DOCKED DEVICE Routine 06/29/2024 8:05 PM [employer] POCT GLUCOSE - BALLARD DOCKED DEVICE Routine 06/29/2024 4:27 PM [employer] POCT GLUCOSE - BALLARD DOCKED DEVICE Routine 06/29/2024 11:46 AM [employer] POCT GLUCOSE - BALLARD DOCKED DEVICE Routine 06/29/2024 7:05 AM [employer] CBC W/DIFF AUTOMATED Routine 06/29/2024 6:05 AM [employer] POTASSIUM, SERUM Routine 06/29/2024 6:05 AM [employer] POCT GLUCOSE - BALLARD DOCKED DEVICE Routine 06/28/2024 8:12 PM [employer] POCT GLUCOSE - BALLARD DOCKED DEVICE Routine 06/28/2024 4:59 PM [employer] POCT GLUCOSE - BALLARD DOCKED DEVICE Routine 06/28/2024 11:45 AM [employer] BASIC METABOLIC PANEL Routine 06/28/2024 11:24 AM [employer] POCT GLUCOSE - BALLARD DOCKED DEVICE Routine 06/28/2024 7:55 AM [employer] POCT GLUCOSE - BALLARD DOCKED DEVICE Routine 06/27/2024 4:17 PM [employer] POCT GLUCOSE - BALLARD DOCKED DEVICE Routine 06/27/2024 11:18 AM [employer] GI PANEL PCR - STOOL STAT 06/27/2024 9:00 AM [employer] CLOSTRIDIUM DIFFICILE STAT 06/27/2024 8:59 AM [employer] COMPREHENSIVE METABOLIC PANEL Routine 06/27/2024 7:51 AM [employer] CBC W/DIFF AUTOMATED Routine 06/27/2024 7:51 AM [employer] POCT GLUCOSE - BALLARD DOCKED DEVICE Routine 06/27/2024 7:19 AM [employer] URINALYSIS, AUTO, COMPLETE STAT 06/26/2024 11:00 PM [employer] POCT GLUCOSE - BALLARD DOCKED DEVICE Routine 06/26/2024 4:[address] [facility] [address] ABD+PEL W CON STAT 06/26/2024 12:5 7 PM [employer] LIPASE STAT 06/26/2024 11:52 AM [employer] COMPREHENSIVE METABOLIC PANEL STAT 06/26/2024 11:52 AM [employer] CBC W/DIFF AUTOMATED STAT 06/26/2024 11:52 AM [employer] XR HAND RT 3V Routine 06/22/2024 8:31 AM [employer] Closed displaced fracture of shaft of fourth metacarpal bone of right hand with routine healing, subsequent encounter HEMOGLOBIN, GLYCOSYLATED STAT 05/03/2024 2:00 PM [employer] LIPID PANEL Routine 01/26/2024 4:30 AM CDT from Last 3 Months or Most Recently Relevant to Health Maintenance Results * CT CHEST HIGH RESOLUTION WO CON (08/19/2024 2:41 PM CDT) Anatomical Region Laterality Modality Chest Computed Tomogra phy 09/01/2024 12:2 1 PM CDT Impressions 09/01/2024 12:39 PM CDT IMPRESSION: 1. Peripheral basilar interstitial lung abnormalities, unchanged. Possible nonspecific interstitial pneumonia CT pattern. 2. Coronary artery disease. 3. Previous described groundglass nodule in the right upper lobe, resolved. Sub-6 mm lung nodule in the superior segment of left lower lobe, decreased in size. No further follow-up recommended per Fleischner guidelines. Any follow-up recommendations contained in this report for incidentally detected pulmonary nodules were made according to current recommendation guidelines based at a minimum on nodule size AND patient risk factors. 4. No evidence of nodules within the airway. Ordered By: DARLENE LI Interpreted By: Navi Gu MD, 09/01/2024 12:21 PM Narrative 09/01/2024 12:39 PM CDT [facility] [address] [place] [address] EXAMINATION: CT Chest without contrast, HRCT DATE: 08/19/2024 2:14 PM CLINICAL HISTORY: Other nonspecific abnormal finding of lung field. Shortness of breath with exertion. Concern for nodule. Nodule seen in throat. COMPARISON: CTA PE on 01/24/2024. TECHNIQUE: Computed tomography of the chest was obtained without administration of intravenous contrast according to HRCT protocol. Inspiration/expiration images obtained. Prone images not obtained. A dose lowering technique was used for this procedure, which may include, but is not limited to, dose reduction technique, automated exposure control, the use of iterative reconstruction, and ALARA (As Low As Reasonably Achievable) / Image Gently techniques. FINDINGS: Airways intact. No pneumothorax. No pleural effusion. There appears to be bronchiectasis, most notable in bilateral lower lobes. Possible mild peripheral basilar groundglass opacities. Possible interlobular septal thickening. Intrafissural lymph nodes. Previous described groundglass nodule in the right upper lobe, resolved. Sub-6 mm lung nodule in the superior segment of left lower lobe on image 46, decreased in size. No evidence of mosaic attenuation or air trapping. No evidence of tracheomalacia. No evidence of nodules within the airway. Coronary artery disease. Atherosclerotic thoracic aorta. Subcentimeter thyroid nodule. Clips in the gastroesophageal junction. Nonspecific left adrenal gland thickening. Diverticulosis without diverticulitis. Spondylosis. Procedure Note Navi Gu MD - 09/01/2024 [facility] [address] [facility] [place] [address] EXAMINATION: CT Chest without contrast, HRCT DATE: 08/19/2024 2:14 PM CLINICAL HISTORY: Other nonspecific abnormal finding of lung field.Shortness of breath with exertion. Concern for nodule. Nodule seen inthroat. COMPARISON: CTA PE on 01/24/2024. TECHNIQUE: Computed tomography of the chest was obtained withoutadministration of intravenous contrast according to HRCT protocol.Inspiration/expiration images obtained. Prone images not obtained. A doselowering technique was used for this procedure, which may include, but isnot limited to, dose reduction technique, automated exposure control, theuse of iterative reconstruction, and ALARA (As Low As ReasonablyAchievable) / Image Gently techniques. FINDINGS: Airways intact. No pneumothorax. No pleural effusion. Thereappears to be bronchiectasis, most notable in bilateral lower lobes.Possible mild peripheral basilar groundglass opacities. Possibleinterlobular septal thickening. Intrafissural lymph nodes. Previousdescribed groundglass nodule in the right upper lobe, resolved. Sub-6 mmlung nodule in the superior segment of left lower lobe on image 46,decreased in size. No evidence of mosaic attenuation or air trapping. Noevidence of tracheomalacia. No evidence of nodules within the airway.Coronary artery disease. Atherosclerotic thoracic aorta. Subcentimeterthyroid nodule. Clips in the gastroesophageal junction. Nonspecific leftadrenal gland thickening. Diverticulosis without diverticulitis.Spondylosis. IMPRESSION: 1. Peripheral basilar interstitial lung abnormalities, unchanged.Possible nonspecific interstitial pneumonia CT pattern. 2. Coronary artery disease. 3. Previous described groundglass nodule in the right upper lobe,resolved. Sub-6 mm lung nodule in the superior segment of left lower lobe,decreased in size. No further follow-up recommended per Flefabiannerxavi. Any follow-up recommendations contained in this report forincidentally detected pulmonary nodules were made according to currentrecommendation guidelines based at a minimum on nodule size AND patientrisk factors. 4. No evidence of nodules within the airway. Ordered By: DARLENE LI Interpreted By: Navi Gu MD, 09/01/2024 12:21 PM Darlene Li PA-C CT Final Resu lt * XR HAND RT 3V (07/13/2024 9:18 AM CDT) Only the most recent of2 resultswithin the time period is included. Anatomical Region Laterality Modality Hand Radiographic Julita ging 07/15/2024 12:5 5 AM CDT Impressions 07/15/2024 12:57 AM CDT IMPRESSION: 1) Mild interval healing changes at the fourth metacarpal fracture. 2. Stable internal hardware and the proximal fourth metacarpal. Referred By: Interpreted By: Fernie Vines MD, 07/15/2024 12:55 AM Narrative 07/15/2024 12:57 AM CDT [facility] [address] [place] [address] Examination: XR HAND RT 3V Exam time: 07/13/2024 9:11 AM Clinical history: Fracture follow-up. Comparison: Comparison made to radiographs 06/22/2024. Technique: 3 projections. Findings: Again noted is a fracture at the mid and distal fourth metacarpal. In the proximal fourth metacarpal internal fixation as before with sideplate and screws. The alignment is stable. There is patchy osteopenia. Further mild interval healing. Surrounding soft tissues are unremarkable. Degenerative changes in the interphalangeal joint and MCP joints including the base of the thumb. Chronic deviation of the fifth distal phalanx. Procedure Note Fernie Vines MD - 07/15/2024 [facility] [address] [place] [address] Examination: XR HAND RT 3V Exam time: 07/13/2024 9:11 AM Clinical history: Fracture follow-up. Comparison: Comparison made to radiographs 06/22/2024. Technique: 3 projections. Findings: Again noted is a fracture at the mid and distal fourthmetacarpal. In the proximal fourth metacarpal internal fixation as beforewith sideplate and screws. The alignment is stable. There is patchyosteopenia. Further mild interval healing. Surrounding soft tissues areunremarkable. Degenerative changes in the interphalangeal joint and MCPjoints including the base of the thumb. Chronic deviation of the fifthdistal phalanx. IMPRESSION: 1) Mild interval healing changes at the fourth metacarpal fracture. 2. Stable internal hardware and the proximal fourth metacarpal. Referred By: Interpreted By: Fernie Vines MD, 07/15/2024 12:55 AM Vishnu Olsen DO GENERAL IMAGING Final Result * (ABNORMAL) POCT glucose (07/01/2024 4:25 PM [facility]) Only the most recent of19 resultswithin the time period is included. GLUCOSE POC 233(H) 70 - 110 mg/dL 07/01/2024 4:[address] [facility] 07/01/2024 4:25 PM [facility] us Ilan Ferrari MD POCT ORDERABLES - DEVICE Final Result [facility] [address] [place] [address], * (ABNORMAL) COMPREHENSIVE METABOLIC PANEL (06/30/2024 10:31 AM [facility]) Only the most recent of3 resultswithin the time period is included. GLUCOSE 312(H) 70 - 99 MG/DL 06/30/2024 11:[address] [facility] BUN 6(L) 7 - 18 MG/DL 06/30/2024 11:[address] [facility] CREATININE S/P/B 0.90 0.55 - 1.02 MG/DL 06/30/2024 11:[address] [facility] SODIUM S/P/B 136 136 - 145 MMOL/L 06/30/2024 11:[address] [facility] POTASSIUM S/P/B 4.0 3.5 - 5.1 MMOL/L 06/30/2024 11:[address] [facility] CHLORIDE S/P/B 102 100 - 108 MMOL/L 06/30/2024 11:[address] [facility] CO2 22.3 21 - 32 MMOL/L 06/30/2024 11:[address] [facility] CALCIUM S/P/B 8.4(L) 8.5 - 10.1 MG/DL 06/30/2024 11:[address] [facility] BILIRUBIN TOTAL S/P/B 0.3 0.2 - 1.2 MG/DL 06/30/2024 11:[address] [facility] TOTAL PROTEIN S/P/B 6.0(L) 6.4 - 8.2 G/DL 06/30/2024 11:[address] [facility] ALBUMIN S/P/B 2.8(L) 3.4 - 5.0 G/DL 06/30/2024 11:[address] [facility] AST 17 15 - 37 U/L 06/30/2024 11:[address] [facility] ALT 9(L) 14 - 55 U/L 06/30/2024 11:[address] [facility] ALKALINE PHOSPHATASE S/P/B 79 50 - 136 U/L 06/30/2024 11:[address] [facility] ANION GAP 11.7 5 - 15 MMOL/L 06/30/2024 11:[address] [facility] BUN CREATININE RATIO 6.7 6 - 26 06/30/2024 11:[address] [facility] A/G RATIO 0.9(L) 1.0 - 2.0 RATIO 06/30/2024 11:[address] [facility] GFR ESTIMATE 65(L) >90 ML/MIN/1.7 3 M2 06/30/2024 11:[address] [facility] Comment: NOTE: eGFR is not calculated for patients <18 years of age. This is an estimated GFR calculation using the new CKD EPI creatinine equation without race and so does not require a correction factor for race. This estimated GFR should not be used for calculating drug doses. 06/30/2024 10:3 1 AM [facility] us Pantera Alba MD LABORATORY Final Result [facility] [address] [place] [address], [place] [phone] * (ABNORMAL) CBC W/DIFF AUTOMATED (06/29/2024 6:05 AM [facility]) Only the most recent of3 resultswithin the time period is included. WBC 8.36 4.4 - 11.0 x10'3/uL 06/29/2024 7:[address] [facility] RBC 4.29(L) 4.50 - 5.10 x10'6/uL 06/29/2024 7:[address] [facility] HGB 13.4 12.3 - 15.3 G/DL 06/29/2024 7:[address] [facility] HCT 39.8 35.9 - 44.6 % 06/29/2024 7:[address] [facility] MCV 92.8 80.0 - 96.0 FL 06/29/2024 7:[address] [facility] MCH 31.2(H) 25.3 - 30.9 PG 06/29/2024 7:[address] [facility] MCHC 33.7 31.0 - 34.1 G/DL 06/29/2024 7:[address] [facility] RDW 13.3 12.4 - 15.1 % 06/29/2024 7:[address] [facility] PLT 237 151 - 353 x10'3/uL 06/29/2024 7:[address] [facility] MPV 9.7 9.6 - 12.0 FL 06/29/2024 7:[address] [facility] RBC MORPHOLOGY NORMAL 06/29/2024 7:[address] [facility] PLT MORPH. NORMAL 06/29/2024 7:[address] [facility] WBC MORPHOLOGY NORMAL 06/29/2024 7:[address] [facility] LYMPHOCYTES % 25.1 15.8 - 45.0 % 06/29/2024 7:[address] [facility] NEUTROPHILS % 53.9 42.1 - 71.9 % 06/29/2024 7:[address] [facility] MONOCYTES % 17.1(H) 5.7 - 12.5 % 06/29/2024 7:[address] [facility] EOSINOPHILS 1.8 0.0 - 5.6 % 06/29/2024 7:[address] [facility] BASOPHILS 0.5 0.0 - 1.3 % 06/29/2024 7:[address] [facility] ABS. NEUTROPHILS 4.51 1.40 - 6.00 x10'3/uL 06/29/2024 7:[address] [facility] IMMATURE GRANS % 1.6(H) 0.0 - 0.5 % 06/29/2024 7:[address] [facility] ABS. LYMPHOCYTES 2.10 0.80 - 4.70 x10'3/uL 06/29/2024 7:[address] [facility] 06/29/2024 6:05 AM [facility] Pantera Alba MD LABORATORY Final Result [facility] [address] [place] [address], * POTASSIUM, SERUM (06/29/2024 6:05 AM [facility]) POTASSIUM S/P/B 3.8 3.5 - 5.1 MMOL/L 06/29/2024 7:[address] [facility] 06/29/2024 6:05 AM [facility] us Pantera Alba MD LABORATORY Final Result [facility] [address] [place] [address], * (ABNORMAL) BASIC METABOLIC PANEL (06/28/2024 11:24 AM [facility]) GLUCOSE 208(H) 70 - 99 MG/DL 06/28/2024 12:[address] [facility] BUN 5(L) 7 - 18 MG/DL 06/28/2024 12:[address] [facility] CREATININE S/P/B 0.98 0.55 - 1.02 MG/DL 06/28/2024 12:[address] [facility] SODIUM S/P/B 141 136 - 145 MMOL/L 06/28/2024 12:[address] [facility] POTASSIUM S/P/B 3.0(LL) 3.5 - 5.1 MMOL/L 06/28/2024 12:[address] [facility] Comment: Critical Result(s) Called at: 12:30:52 on 06/28/2024 by: Kayla Solis to and read back by:MANAN CARR CHLORIDE S/P/B 105 100 - 108 MMOL/L 06/28/2024 12:[address] [facility] CO2 26.6 21 - 32 MMOL/L 06/28/2024 12:[address] [facility] CALCIUM S/P/B 8.0(L) 8.5 - 10.1 MG/DL 06/28/2024 12:[address] [facility] ANION GAP 9.4 5 - 15 MMOL/L 06/28/2024 12:[address] [facility] BUN CREATININE RATIO 5.1(L) 6 - 26 06/28/2024 12:[address] [facility] GFR ESTIMATE 59(L) >90 ML/MIN/1.7 3 M2 06/28/2024 12:[address] [facility] Comment: NOTE: eGFR is not calculated for patients <18 years of age. This is an estimated GFR calculation using the new CKD EPI creatinine equation without race and so does not require a correction factor for race. This estimated GFR should not be used for calculating drug doses. 06/28/2024 11:2 4 AM [facility] us Pantera Alba MD LABORATORY Final Result [facility] [address] [place] [address], * GI PANEL PCR - STOOL (06/27/2024 9:00 AM [facility]) CAMPYLOBACTER PCR (STOOL) NOT DETECTED NOT DETECTED 06/27/2024 1:30 PM [facility] PLESIOMONAS SHIGELLOIDES PCR (STOOL) NOT DETECTED NOT DETECTED 06/27/2024 1:30 PM [facility] SALMONELLA PCR (STOOL) NOT DETECTED NOT DETECTED 06/27/2024 1:30 PM [facility] VIBRIO PCR (STOOL) NOT DETECTED NOT DETECTED 06/27/2024 1:30 PM [facility] VIBRIO CHOLERAE PCR (STOOL) NOT DETECTED NOT DETECTED 06/27/2024 1:30 PM [facility] YERSINIA ENTEROCOLITICA PCR (STOOL) NOT DETECTED NOT DETECTED 06/27/2024 1:30 PM [facility] ENTEROAGGREGATIVE ECOLI PCR (STOOL) NOT DETECTED NOT DETECTED 06/27/2024 1:30 PM [facility] ENTEROPATHOGENIC ECOLI PCR (STOOL) NOT DETECTED NOT DETECTED 06/27/2024 1:30 PM [facility] ENTEROTOXIGENIC ECOLI PCR (STOOL) NOT DETECTED NOT DETECTED 06/27/2024 1:30 PM [facility] SHIGA LIKE TOXIN ECOLI PCR (STOOL) NOT DETECTED NOT DETECTED 06/27/2024 1:30 [address] [facility] SHIG/ENTEROINVASIVE ECOLI PCR (STOOL) NOT DETECTED NOT DETECTED 06/27/2024 1:30 [address] [facility] CRYPTOSPORIDIUM PCR (STOOL) NOT DETECTED NOT DETECTED 06/27/2024 1:30 PM [facility] CYCLOSPORA CAYETANENSIS PCR (STOOL) NOT DETECTED NOT DETECTED 06/27/2024 1:30 PM [facility] ENTAMOEBA HISTOLYTICA PCR (STOOL) NOT DETECTED NOT DETECTED 06/27/2024 1:30 PM [facility] GIARDIA LAMBLIA PCR (STOOL) NOT DETECTED NOT DETECTED 06/27/2024 1:30 PM [facility] ADENOVIRUS F40/41 PCR (STOOL) NOT DETECTED NOT DETECTED 06/27/2024 1:30 PM [facility] ASTROVIRUS PCR (STOOL) NOT DETECTED NOT DETECTED 06/27/2024 1:30 PM [facility] NOROVIRUS GI/GII PCR (STOOL) NOT DETECTED NOT DETECTED 06/27/2024 1:30 [address] [facility] ROTAVIRUS A PCR (STOOL) NOT DETECTED NOT DETECTED 06/27/2024 1:30 [address] [facility] SAPOVIRUS PCR (STOOL) NOT DETECTED NOT DETECTED 06/27/2024 1:30 [address] [facility] STOOL SPECIMEN / Unknown 06/27/2024 9:00 AM [facility] us Antonella Young NP MICROBIOLOGY - GENERAL ORDERA BLES Final Result [facility] [address] [place] [address], [place] [phone] * (ABNORMAL) CLOSTRIDIUM DIFFICILE (06/27/2024 8:59 AM [facility]) GDH ANTIGEN POSITIVE(A) NEGATIVE 06/27/2024 9:41 AM [facility] C DIFFICILE TOXIN A&B (STOOL) POSITIVE(A) NEGATIVE 06/27/2024 9:41 AM [facility] COMMENT GDH POSITIVE/TOXI N A & B POSITIVE: POSITIVE FOR TOXIGENIC C. DIFFICILE. (A) GDH NEGATIVE/TOX IN A & B NEGATIVE: NEGATIVE FOR TOXIGENIC C. 06/27/2024 9:42 AM [facility] Comment: CORRECTED ON 06/27 AT 0942: PREVIOUSLY REPORTED GDH POSITIVE/TOXIN A & B POSITIVE: POSITIVE FOR TOXIGENIC C. DIFFICILE. ALERT VALUE CALLED TO AND READ BACK BY: MANAN STEWART @[facility], STOOL STOOL SPECIMEN / Unknown 06/27/2024 8:59 AM [facility] Tessa Carlton MD BODY FLUIDS AND STOOLS ORDERABL ES Edited Result - Final [facility] [address] [place] [address], [place] [phone] * (ABNORMAL) Urinalysis, Auto, Complete (06/26/2024 11:00 PM [facility]) COLOR (U) YELLOW 06/26/2024 11:25 PM [facility] TRANSPARENCY HAZY 06/26/2024 11:25 PM [facility] SPECIFIC GRAVITY (U) <1.005 1.000 - 1.030 06/26/2024 11:25 PM [facility] U PH 6.0 5.0 - 9.0 06/26/2024 11:25 PM [facility] LEUKOCYTES (U) TRACE(A) NEGATIVE 06/26/2024 11:[address] [facility] NITRITES NEGATIVE NEGATIVE 06/26/2024 11:[address] [facility] PROTEIN RANDOM (U) NEGATIVE NEGATIVE 06/26/2024 11:[address] [facility] GLUCOSE (U) 2+(A) NEGATIVE 06/26/2024 11:[address] [facility] KETONES MG/DL (U) NEGATIVE NEGATIVE 06/26/2024 11:[address] [facility] BILIRUBIN (U) NEGATIVE NEGATIVE 06/26/2024 11:[address] [facility] BLOOD (U) NEGATIVE NEGATIVE 06/26/2024 11:[address] [facility] WBC/HPF 5-10 0 - 5 /HPF 06/26/2024 11:[address] [facility] RBC/HPF 0-5 0 - 5 /HPF 06/26/2024 11:[address] [facility] EPI/HPF RARE /HPF 06/26/2024 11:[address] [facility] URINE SPECIMEN OBTAINED BY CLEAN CATCH PROCEDURE / Unknown 06/26/2024 11:00 PM [facility] us Tessa Carlton MD URINE ORDERABLES Final Result [facility] [address] [place] [address], * CT ABD+PEL W CON (06/26/2024 12:57 PM [facility]) Anatomical Region Laterality Modality Abdomen Computed Tomogra phy 06/26/2024 1:2 4 PM [facility] Impressions 06/26/2024 2:02 PM [facility] =====IMPRESSION:===== 1. Mild mucosal thickening of the sigmoid colon and rectum. May be due to focal colitis. Either infectious or inflammatory.. 2. No bowel obstruction. Other scattered colonic diverticuli without inflammation.. 3. No renal calculi or hydronephrosis. Cholecystectomy. Hysterectomy. Ordered By: TESSA CARLTON Interpreted By: Du Jasso, 06/26/2024 1:24 PM Narrative 06/26/2024 2:02 PM [facility] [address] [facility] [address] [place] [id number] EXAMINATION: CT ABDOMEN AND PELVIS WITH CONTRAST EXAM DATE/TIME: 06/26/2024 12:41 PM REASON FOR EXAM: Nausea and emesis and diarrhea. lower abd pain . Blood in stool. COMPARISON: 04/13/2024 TECHNIQUE: Axial imaging of the abdomen and pelvis was obtained in corticomedullary and excretory phase after 75 mL of Isovue-370 was injected. A dose lowering technique was used for this procedure, which may include, but is not limited to, dose reduction technique, automated exposure control, iterative reconstruction, ALARA (As Low As Reasonably Achievable), or Image Gently techniques. Oral contrast was not administered. FINDINGS: Abdomen: Adrenal glands: Unremarkable. Kidneys: No suspicious lesion or hydronephrosis.No renal calculi Spleen: Unremarkable. Stomach and duodenum: Unremarkable. Stable surgical clips at the gastroesophageal junction. Gallbladder: Cholecystectomy Pancreas grossly unremarkable. Hepatic parenchyma are within normal limits with no evidence of intrahepatic biliary dilatation or mass. Portal vein patent. No mesenteric lymphadenopathy or evidence of small bowel obstruction. No free fluid or free air. No evidence of retroperitoneal lymphadenopathy. No evidence of an abdominal aortic aneurysm. Mild mucosal thickening of the sigmoid colon and rectum. May be due to focal colitis. Either infectious or inflammatory. Numerous sigmoid diverticuli without distinct evidence of diverticulitis. Early diverticulitis would be difficult to exclude. Other scattered colonic diverticuli without inflammation. Moderate stool in proximal colon. No obstruction. Appendix not inflamed. Pelvis: Hysterectomy. No adnexal lesions. Low volume urinary bladder with mild mucosal prominence. Similar to prior exam. On bone windows, no evidence of suspicious skeletal lesion or acute compression fracture deformity. Moderate multilevel degenerative change. Moderately severe spinal stenosis at L4-5. Limited evaluation of the lower thorax demonstrates no acute abnormality. Similar mild scar formation. Procedure Note Pelon Jasso MD - 06/26/2024 [facility] [address] [place] [address] EXAMINATION: CT ABDOMEN AND PELVIS WITH CONTRAST EXAM DATE/TIME: 06/26/2024 12:41 PM REASON FOR EXAM: Nausea and emesis and diarrhea. lower abd pain .Blood in stool. COMPARISON: 04/13/2024 TECHNIQUE: Axial imaging of the abdomen and pelvis was obtained incorticomedullary and excretory phase after 75 mL of Isovue-370 wasinjected. A dose lowering technique was used for this procedure, whichmay include, but is not limited to, dose reduction technique, automatedexposure control, iterative reconstruction, ALARA (As Low As ReasonablyAchievable), or Image Gently techniques. Oral contrast was not administered. FINDINGS: Abdomen: Adrenal glands: Unremarkable. Kidneys: No suspicious lesion or hydronephrosis.No renal calculi Spleen: Unremarkable. Stomach and duodenum: Unremarkable. Stable surgical clips at thegastroesophageal junction. Gallbladder: Cholecystectomy Pancreas grossly unremarkable. Hepatic parenchyma are within normal limits with no evidence ofintrahepatic biliary dilatation or mass. Portal vein patent. No mesenteric lymphadenopathy or evidence of small bowel obstruction. Nofree fluid or free air. No evidence of retroperitoneal lymphadenopathy. No evidence of an abdominal aortic aneurysm. Mild mucosal thickening of the sigmoid colon and rectum. May be due tofocal colitis. Either infectious or inflammatory. Numerous sigmoiddiverticuli without distinct evidence of diverticulitis. Earlydiverticulitis would be difficult to exclude. Other scattered colonic diverticuli without inflammation. Moderate stoolin proximal colon. No obstruction. Appendix not inflamed. Pelvis: Hysterectomy. No adnexal lesions. Low volume urinary bladder withmild mucosal prominence. Similar to prior exam. On bone windows, no evidence of suspicious skeletal lesion or acutecompression fracture deformity. Moderate multilevel degenerative change.Moderately severe spinal stenosis at L4-5. Limited evaluation of the lower thorax demonstrates no acute abnormality.Similar mild scar formation. =====IMPRESSION:===== 1. Mild mucosal thickening of the sigmoid colon and rectum. May be dueto focal colitis. Either infectious or inflammatory.. 2. No bowel obstruction. Other scattered colonic diverticuli withoutinflammation.. 3. No renal calculi or hydronephrosis. Cholecystectomy. Hysterectomy. Ordered By: TESSA CARLTON Interpreted By: Du Jasso, 06/26/2024 1:24 PM Tessa Carlton MD CT Final Result * LIPASE (06/26/2024 11:52 AM [facility]) LIPASE 27 16 - 77 UNITS/L 06/26/2024 12:14 PM [facility] 06/26/2024 11:5 2 AM [facility] Tessa Carlton MD LABORATORY Final Result Performing Organization Address [facility] de Phone Number [facility] [address] [place] [address], * (ABNORMAL) HEMOGLOBIN, GLYCOSYLATED (05/03/2024 2:00 PM [facility]) HGB A1C 10.0(H) <5.7 % 05/03/2024 2:56 PM [facility] Comment: INCREASED RISK OF DIABETES <5.7% NON-DIABETES 5.7-6.4% INCREASED RISK FOR FUTURE DIABETES > OR = 6.5 CONSISTENT WITH DIABETES STANDARDS OF MEDICAL CARE IN DIABETES-2010 DIABETES CARE, 33(SUPP 1): S1-S61,2010 ESTIMATED AVG GLUCOSE 240 mg/dL 05/03/2024 2:56 PM [facility] 05/03/2024 2:00 PM [facility] Deepa Stein NP LABORATORY Final Resul t [facility] [address] [place] [address], [place] [phone] * LIPID PANEL (01/26/2024 4:30 AM CDT) CHOLESTEROL 133 <200.0 MG/DL 01/26/2024 5:46 AM CDT [facility] TRIGLYCERIDES 122 <150 MG/DL 01/26/2024 5:46 AM CDT [facility] HDL 51 >40.0 MG/DL 01/26/2024 5:46 AM CDT [facility] LDL (CALCULATED) 58 <100 MG/DL 01/26/20 5:46 AM CDT [facility] NON HDL CHOLESTEROL 82 <130 MG/DL 01/25 5:46 AM CDT [facility] CHOL/HDL RATIO 2.6 0.0 - 4.5 01/26/2024 5:46 AM CDT [facility] VLDL CALCULATION 24 5 - 55 MG/DL 01/26/2024 5:46 AM T [facility] LIPID INTERPRETATION 01/26/2024 5:46 AM T [facility] Comment: [facility] CONCENSUS REPORT RECOMMENDATIONS: ADULT CHILD LOW RISK: CHOLESTEROL <200 <170 TRIGLYCERIDE <150 --- HDL >=60 --- LDL <100 <110 BORDERLINE: CHOLESTEROL 200-239 170-199 TRIGLYCERIDE 150-199 --- HDL 40-59 --- LDL 100-159 110-129 HIGH RISK: CHOLESTEROL >=240 >=200 TRIGLYCERIDE >=200 --- HDL <40 --- LDL >=160 >=130 01/26/2024 4:30 AM CDT us Kathi Royal MD LABORATORY Final Result [facility] [address] [place] [address], [place] [phone] from Last 3 Months or Most Recently Relevant to Health Maintenance Additional Health Concerns Infection Onset Date Last Indicated C. 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 DNR (Do Not Resuscitate) Documentation 01/27/2024 8:36 AM * DNR (Latest Code Status on File) Date Activated Date Inactivated Comments 06/26/2024 2:44 PM 07/01/2024 8:19 PM * DNR Date Activated Date Inactivated Comments 05/03/2024 3:43 PM 05/05/2024 1:18 PM * DNR Date Activated Date Inactivated Comments 04/17/2024 12:37 PM 04/24/2024 12:11 PM * Full Code Date Activated Date Inactivated Comments 04/16/2024 2:21 PM 04/17/2024 12:37 PM * Full Code Date Activated Date Inactivated Comments 04/13/2024 6:01 PM 04/16/2024 1:44 PM Care Teams Sql Architect Relationship Specialty Start Date End Date Darlene Li PA-C [address] [place] [address] [address] [place] [address] PCP - General PHYSICIAN TISSUE COORDINATOR 08/18/22
--- OUTSIDE RECORDS SUMMARY | 2024-09-09 10:43 | XMS_ITS | Referral Summary ---
Author Organization [facility] Medical Office Building [address] Address [address] [place] [address] Care Team Providers Care Napper Grinder Name Role Phone Ngoiz Oquendo M.T., MD Primary Care Provider [phone] Chidi Reis MD Unavailable [phone] Allergies Active Allergy Reactions Criticality Noted Date Comments Albuterol Aspirin Hives Reaction: Hives, , Codeine Other (See comments) Reaction: Unknown, , Ibuprofen Nausea only,Vomiting Reaction: Nausea, Vomiting, , Penicillins Hives Reaction: Hives, , Pentazocine Medications insulin glargine (LANTUS) 100 unit/mL injection Inject 26 Units under the skin nightly Active metFORMIN (GLUCOPHAGE) 1,000 mg tablet Take 1,000 mg by mouth 2 (two) times a day with meals Active pravastatin (PRAVACHOL) 40 mg tablet Take 40 mg by mouth daily Active losartan (COZAAR) 50 mg tablet Take 50 mg by mouth daily Active venlafaxine (EFFEXOR) 25 mg tablet Take 25 mg by mouth 2 (two) times a day Active calcium carbonate-vitam in D3 600mg (1,500mg) -1,000 unit capsule Take by mouth Active clopidogrel (PLAVIX) 75 mg tablet Take 75 mg by mouth daily Active glipiZIDE (GLUCOTROL) 10 mg tabletIndicatio ns:type 2 diabetes mellitus Take 10 mg by mouth 2 (two) times a day before breakfast and lunch Active Active Problems Problem Noted Date Diagnosed Date C. 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 Gender Identity Not on file Sexual Orientation Not on file Last Filed Vital Signs Vital Sign Reading Time Taken Comments Blood Pressure 128/86 12/11/2018 10:40 AM CDT Pulse - - Temperature - - Respiratory Rate - - Oxygen Saturation - - Inhaled Oxygen Concentration - - Weight 91.6 kg (202 lb) 12/11/2018 10:40 AM CDT Height 161.9 cm (5' 3.75 ) 12/11/2018 10:40 AM C DT Body Mass Index 34.95 12/11/2018 10:40 AM CDT Plan of Treatment Not on file [place] [address] [facility] MEDICARE SUPPLEMENT INSURANCE [facility] MEDICARE ADVANTAGE [facility] Advance Directives For more information, please contact: [phone] * Full Code (Latest Code Status on File) Date Activated Date Inactivated Comments 02/09/2023 6:04 AM Care Teams Napper Grinder Relationship Specialty Start Date End Date Ngozi Oquendo M.T., MD [address] [place] [id number] PCP - General Emergency Medicine 12/11/18 Chidi Reis MD [address] [place] [address] Internal Medicine 03/26/24
--- OUTSIDE RECORDS SUMMARY | 2024-09-09 10:43 | XMS_ITS | Clinical Summary ---
Author Organization [facility] Address [address] [place] [address] Care Team Providers Care Fittings Finisher Name Role Phone Ngozi Oquendo M.T., MD Primary Care Provider [phone] Chidi Reis MD Unavailable [phone] Allergies Active Allergy Reactions Criticality Noted Date [...] Diabetes mellitus 11/05/2012 Overview (08/10/2016): Diabetes mellitus Surgical History Surgery Date Site/Laterality Comments OTHER SURGICAL HISTORY surgery for aci9d reflux OTHER SURGICAL HISTORY exc. 6 rt. breast lumps REDUCTION MAMMOPLASTY 2009 Breast reduction HYSTERECTOMY Hysterectomy BACK SURGERY Back surgery REDUCTION MAMMOPLASTY Breast reduction TONSILLECTOMY Tonsillectomy OTHER SURGICAL HISTORY hysterectomy: [facility], has ovaries OTHER SURGICAL HISTORY lumpectomy, breast x 6 CHOLECYSTECTOMY Cholecystectomy ARTHROSCOPIC SURGERY Left arthroscopy OTHER SURGICAL HISTORY fluid removed from around heart, 200cc OTHER SURGICAL HISTORY 1964 : 2 hr labor OTHER SURGICAL HISTORY 1965 : 2 hr labor Medical History Medical History Date Comments Diabetes mellitus (HCC) Diabetes Type 2 diabetes mellitus (HCC) D iabetes type 2 Hx Other Medical 1964 ; Outc ome: 6 lb(s) 12 oz Female Hx Other Medical 1965 ; Outc ome: 7 lb(s) 2 oz Male Diabetes (HCC) 2009 COPD (chronic obstructive pu lmonary disease) (HCC) 2016 Family History Medical History Relation Name Comments Heart disease Father Breast cancer Mother Cancer, breast ; Cancer Mother Other Other No family histo ry of Diabetes mellitus; Relation Name Status Comments Father Mother Other Social History Tobacco Use Types Packs/Day Years Used Date Smoking Tobacco: Never Smokeless Tobacco: Never Alcohol Use Standard Drinks/Week Comments Yes 0 (1 standard drink = 0.6 oz pur e alcohol) socially Comments No Sex and Gender Information Value Date Recorded Sex Assigned at Not on file 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 Gender Identity Not on file Sexual Orientation Not on file Obstetrics History Para Term AB IAB SAB Ectopic Multiple Livin g Live Births 2 2 2 Date Outcome GA Total Labor Labor/2nd/3rd Weight Sex Type Anes PTL Daria A1 A5 Name Clin Para Para Last Filed Vital Signs Vital Sign Reading [...] of Treatment Not on file Insurance MEDICARE [facility] MEDICARE SUPPLEMENT INSURANCE MEDICARE ADVANTAGE IDPA Advance Directives For more information, please contact: [phone] * Full Code (Latest Code Status on File) Date Activated Date Inactivated Comments 02/09/2023 6:04 AM Care Teams Fittings Finisher Relationship Specialty Start Date End Date Ngozi Oquendo M.T., MD [address] [place] [id number] PCP - General Emergency Medicine 12/11/18 Chidi Reis MD [address] [place] [address] Internal Medicine 03/26/24
[2024-09-09 11:02] LABS: Alanine Aminotransferase 20 U/L (6-35); Albumin Level 4.2 g/dL (3.5-5.1); Alkaline Phosphatase 105 U/L (38-126); Anion Gap 10 mmol/L (4-12); Aspartate Amino Transferase 25 U/L (14-36); Bilirubin,Total 0.6 mg/dL (0.2-1.3); Blood Urea Nitrogen 20 mg/dL (7-17); Calcium 9.4 mg/dL (8.4-10.2); Carbon Dioxide 27 mmol/L (22-30); Chloride 98 mmol/L (98-107); Cholesterol 198 mg/dL (0-200); Estimated Glomerular Filt Rate 53; Glucose 383 mg/dL (65-110); HDL Direct 59 mg/dL; Sodium 135 mmol/L (137-145); Triglycerides 192 mg/dL (<150)
[2024-09-09 11:13] LABS: LDL Cholesterol Direct 94 mg/dL
[2024-09-09 11:22] LABS: Creatinine Urine 123.6 mg/dL
[2024-09-09 11:25] LABS: Free T4 Free Thyroxine 1.05 ng/dL (0.78-2.19); Vitamin D 25 Hydroxy 46.3 ng/mL
[2024-09-09 11:27] LABS: MALB Creatinine Ratio 12.5 mg/g (0-30); Microalbumin Urine Random 15.5 mg/L (0-16.7)
== END 2024-09-09 10:00 | disposition home or self-care (01) ==
PROVIDERS: PCP Physician Assistant Medical; Visit Provider Nurse Practitioner Family
DX: E11.9 Type 2 diabetes mellitus without complications (principal); Z79.4 Long term (current) use of insulin; I10 Essential (primary) hypertension; R15.9 Full incontinence of feces; E78.5 Hyperlipidemia, unspecified; K59.00 Constipation, unspecified
CPT/HCPCS: 36415; 74018; 80053; 80061; 82043; 82306; 82607; 84439; 84443

== ENCOUNTER 2024-10-14 01:25 | Day surgery (SDC) | payer MEDICARE, SELFPAY ==
[2024-10-06 14:45] VITALS: BMI 30.1
--- NOTE | 2024-10-06 15:09 | PC.NURSE ---
Spoke with _PATIENT_ regarding medication PLAVIX AND ELIQUIS. _PATIENT_verbalizes understanding that the last dose os PLAVIX is to be taken on 10/06/24, last dose of ELIQUIS on 10/10/24 and the Endoscopist will instruct them when to restart after the procedure.
--- OUTSIDE RECORDS SUMMARY | 2024-10-14 01:27 | XMS_ITS | Referral Summary ---
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 Gender Identity Not on file Sexual Orientation Not on file Last Filed Vital Signs Vital Sign Reading Time Taken Comments Blood Pressure 128/86 12/11/2018 10:40 AM CDT Pulse - - Temperature - - Respiratory Rate - - Oxygen Saturation - - Inhaled Oxygen Concentration - - Weight 91.6 kg (202 lb) 12/11/2018 10:40 AM CDT Height 161.9 cm (5' 3.75) 12/11/2018 10:40 AM C DT Body Mass Index 34.95 12/11/2018 10:40 AM CDT Plan of Treatment Not on file Insurance MEDICARE [facility] MEDICARE SUPPLEMENT INSURANCE MEDICARE ADVANTAGE IDPA Advance Directives For more information, please contact: [phone] * Full Code (Latest Code Status on File) Date Activated Date Inactivated Comments 02/09/2023 6:04 AM Care Teams Manager Treasury Relationship Specialty Start Date End Date Ngozi Oquendo M.T., MD [address] [place] [id number] PCP - General Emergency Medicine 12/11/18 Chidi Reis MD [address] [place] [address] Internal Medicine 03/26/24
--- OUTSIDE RECORDS SUMMARY | 2024-10-14 01:27 | XMS_ITS | Clinical Summary ---
Author Organization [facility] Care Team Providers Care Event Operations Manager Name Role Phone Unavailable Primary Care Provider [...]
--- OUTSIDE RECORDS SUMMARY | 2024-10-14 01:27 | XMS_ITS | Clinical Summary ---
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 Gender Identity Not on file Sexual Orientation [...] of Treatment Not on file Insurance MEDICARE [facility] MEDICARE SUPPLEMENT INSURANCE MEDICARE ADVANTAGE IDPA Advance Directives For more information, please contact: [phone] * Full Code (Latest Code Status on File) Date Activated Date Inactivated Comments 02/09/2023 6:04 AM Care Teams Clinic Assistant Relationship Specialty Start Date End Date Ngozi Oquendo M.T., MD [address] [place] [id number] PCP - General Emergency Medicine 12/11/18 Chdii Reis MD [address] [place] [id number] Internal Medicine 03/26/24
[2024-10-14 11:56] VITALS: BP 151/98; PULSE 99; RESP 20; TEMP 36.7; O2SAT 99; BMI 31.4
[2024-10-14] MEDS: LACTATED RINGERS 1,000 ML 150 ML IV CONT (12:27)
--- NOTE | 2024-10-14 12:27 | P.PNAN_ITS ---
Anes - Initial Pre Proc Eval Procedure: Operation Date: 10/14/24 12:30 Proposed Procedures p Flexible Sigmoidoscopy - Jaun Sung MD Date/Time: 10/14/24 12:27 Surgeon: Jaun Sung MD Pre Op Diagnosis: Disease of anus and rectum, unspecified Patient Data Age: 79 Gender: F Height: 1.6 m Weight: 80.3 kg Last Vital Signs Temp 36.7 C 10/14/24 11:56 Pulse 99 10/14/24 11:56 Resp 20 10/14/24 11:56 BP 151/98 H 10/14/24 11:56 Pulse Ox 99 10/14/24 11:56 O2 Del Method Room Air 10/14/24 11:56 Allergies Allergy/AdvReac Type Severity Reaction Status Date / Time Penicillins Allergy Mild Swelling Verified 10/14/24 11:51 pentazocine Allergy Mild Unknown Verified 10/14/24 11:51 albuterol Allergy syncope Verified 10/14/24 11:51 aspirin Allergy Swelling Verified 10/14/24 11:51 codeine Allergy Numbness Verified 10/14/24 11:51 ibuprofen Allergy GI upset Verified 10/14/24 11:51 Sulfa (Sulfonamide Allergy Unknown Verified 10/14/24 11:51 Antibiotics) Home Medications ?Medication ?Instructions ?Recorded ?Confirmed ?Type cariprazine 1.5 mg capsule 1.5 mg PO DAILY #30 caps 01/08/24 10/06/24 Rx (Vraylar) venlafaxine 150 mg 150 mg PO DAILY #90 caps 05/01/24 10/14/24 Rx capsule,extended release 24 hr bupropion HCl 150 mg 24 hr tablet, 150 mg PO QAM 05/08/24 10/14/24 History extended release acetaminophen 500 mg tablet 500 mg PO Q6H PRN fever or pain 07/03/24 10/06/24 History glucose 4 gram chewable tablet 16 g (4 x 4 gram) PO Q15M PRN 07/22/24 10/06/24 Rx (Dex4 Glucose) hypoglycemia #60 tabs linagliptin 5 mg tablet (Tradjenta) 5 mg PO QAM #90 tabs 07/22/24 10/14/24 Rx pen needle, diabetic 32 gauge x #400 ea 07/22/24 09/15/24 Rx 5/32 (Chante Pen Needle) insulin lispro 100 unit/mL 5 unit (0.05 mL) subcut TIDWMEAL 07/23/24 10/06/24 Rx subcutaneous pen (Humalog KwikPen #30 mL (U-100) Insulin) pravastatin 40 mg tablet 40 mg PO DAILY #90 tabs 08/10/24 10/14/24 Rx mupirocin 2 % topical ointment 1 applic topical BID #22 grams 08/28/24 10/06/24 Rx apixaban 5 mg tablet (Eliquis) 5 mg PO BID #180 tabs 08/31/24 10/14/24 Rx clopidogrel 75 mg tablet 75 mg PO DAILY #90 tabs 09/02/24 10/14/24 Rx magnesium oxide 400 mg (241.3 mg 400 mg PO DAILY 09/16/24 10/14/24 History magnesium) tablet furosemide 20 mg tablet 20 mg PO QAM PRN edema #30 tabs 10/02/24 10/06/24 Rx OMEGA XL 1 cap PO DAILY 10/06/24 10/06/24 History glucagon 1 mg/0.2 mL subcutaneous 1 mg subcut ONCE PRN hypoglycemia 10/06/24 10/06/24 History auto-injector (Gvoke HypoPen 2-Pack) insulin glargine 100 unit/mL (3 50 unit subcut QPM 10/06/24 10/14/24 History mL) subcutaneous pen (Basaglar KwikPen U-100 Insulin) Patient hx anesthesia problems: none Family hx anesthesia problems: none Results Review: All pre-operative results and documents have been reviewed as part of the pre- operative evaluation. [facility] Past Medical History Medical History Hypotension Anxiety and depression TIA (transient ischemic attack) 2012 HTN (hypertension) Hypomagnesemia Screening for colon cancer Mini stroke (~2012) Chronic headaches Acid reflux Diabetes Arthritis Surgical History Surgical History History of hand surgery trigger finger -right 3rd finger x3 History of bladder suspension procedure History of arthroscopy of left knee H/O: hysterectomy (~1979) Family History Family History Father Hypertension Mother Breast cancer Social History Social History Social History: Patient declined SDOH 02/12/24 Smoking status: Former smoker Tobacco type: cigarettes Additional smoking assessment comments: quit smoking about 40 years ago Alcohol intake: current Alcohol use details: OCC. Substance use: never Substance use type: does not use Do You Feel Safe in your Home?: Yes Lack of Transportation: No Lack of Food: Never True Current Housing: I Have Housing Concerned About Future Housing: No Difficulty Paying Gas/Electric Bills: No Difficulty Paying for Meds: No Currently Unemployed: No Difficulty w/ Childcare or Family Care: No Living arrangements: alone Occupation/Education: retired Gender identity (if verbalized by the patient): Female Spiritual care concerns: No Agree to blood products: Yes Anes - Eval Final PreProcedure Day of Procedure 10/14/24 12:27 Patient weight: obese Heart: regular rate and rhythm Lungs: decreased breath sounds Airway: Mallampati scale class III Neurological: alert and oriented Last oral intake: >/= 8 hours ASA classification: III Emergent: no Anesthetic plan: proceed Anesthesia type and monitoring: general GIVS and standard monitoring Results Review: All pre-operative results and documents have been reviewed as part of the pre- operative evaluation. Informed Consent: The patient's anesthetic plan and its attendant risks and benefits were d iscussed with the patient/family/POA. Questions were solicited and answers provided to the satisfaction of the patient/family/POA.
[2024-10-14 12:29] LABS: Glucose Point of Care 253 mg/dl (65-105)
--- NOTE | 2024-10-14 12:35 | PM.IMHP ---
H&P: HPI History of Present Illness Date/Time: 10/14/24 12:35 Chief Complaint: Fecal incontinence Narrative: the patient has 1 month of fecal incontinence. her last colonoscopy showed diverticulosis, 2 years ago. He was recently evaluated in our office finding no apparent abnormalities or masses. She is referred for flexible sigmoidoscopy. [facility] Past Medical History Medical History Hypotension Anxiety and depression TIA (transient ischemic attack) 2012 HTN (hypertension) Hypomagnesemia Screening for colon cancer Mini stroke (~2012) Chronic headaches Acid reflux Diabetes Arthritis Surgical History Surgical History History of hand surgery trigger finger -right 3rd finger x3 History of bladder suspension procedure History of arthroscopy of left knee H/O: hysterectomy (~1979) Family History Family History Father Hypertension Mother Breast cancer Social History Social History Social History: Patient declined SDOH 02/12/24 Smoking status: Former smoker Tobacco type: cigarettes Additional smoking assessment comments: quit smoking about 40 years ago Alcohol intake: current Alcohol use details: OCC. Substance use: never Substance use type: does not use Do You Feel Safe in your Home?: Yes Lack of Transportation: No Lack of Food: Never True Current Housing: I Have Housing Concerned About Future Housing: No Difficulty Paying Gas/Electric Bills: No Difficulty Paying for Meds: No Currently Unemployed: No Difficulty w/ Childcare or Family Care: No Living arrangements: alone Occupation/Education: retired Gender identity (if verbalized by the patient): Female Spiritual care concerns: No Agree to blood products: Yes Meds Home Medications and Allergies Home Medications ?Medication ?Instructions ?Recorded ?Confirmed ?Type cariprazine 1.5 mg capsule 1.5 mg PO DAILY #30 caps 01/08/24 10/06/24 Rx (Vraylar) venlafaxine 150 mg 150 mg PO DAILY #90 caps 05/01/24 10/14/24 Rx capsule,extended release 24 hr bupropion HCl 150 mg 24 hr tablet, 150 mg PO QAM 05/08/24 10/14/24 History extended release acetaminophen 500 mg tablet 500 mg PO Q6H PRN fever or pain 07/03/24 10/06/24 History glucose 4 gram chewable tablet 16 g (4 x 4 gram) PO Q15M PRN 07/22/24 10/06/24 Rx (Dex4 Glucose) hypoglycemia #60 tabs linagliptin 5 mg tablet (Tradjenta) 5 mg PO QAM #90 tabs 07/22/24 10/14/24 Rx pen needle, diabetic 32 gauge x #400 ea 07/22/24 09/15/24 Rx 5/32 (Chante Pen Needle) insulin lispro 100 unit/mL 5 unit (0.05 mL) subcut TIDWMEAL 07/23/24 10/06/24 Rx subcutaneous pen (Humalog KwikPen #30 mL (U-100) Insulin) pravastatin 40 mg tablet 40 mg PO DAILY #90 tabs 08/10/24 10/14/24 Rx mupirocin 2 % topical ointment 1 applic topical BID #22 grams 08/28/24 10/06/24 Rx apixaban 5 mg tablet (Eliquis) 5 mg PO BID #180 tabs 08/31/24 10/14/24 Rx clopidogrel 75 mg tablet 75 mg PO DAILY #90 tabs 09/02/24 10/14/24 Rx magnesium oxide 400 mg (241.3 mg 400 mg PO DAILY 09/16/24 10/14/24 History magnesium) tablet furosemide 20 mg tablet 20 mg PO QAM PRN edema #30 tabs 10/02/24 10/06/24 Rx OMEGA XL 1 cap PO DAILY 10/06/24 10/06/24 History glucagon 1 mg/0.2 mL subcutaneous 1 mg subcut ONCE PRN hypoglycemia 10/06/24 10/06/24 History auto-injector (Gvoke HypoPen 2-Pack) insulin glargine 100 unit/mL (3 50 unit subcut QPM 10/06/24 10/14/24 History mL) subcutaneous pen (Basaglar KwikPen U-100 Insulin) Allergies Allergy/AdvReac Type Severity Reaction Status Date / Time Penicillins Allergy Mild Swelling Verified 10/14/24 11:51 pentazocine Allergy Mild Unknown Verified 10/14/24 11:51 albuterol Allergy syncope Verified 10/14/24 11:51 aspirin Allergy Swelling Verified 10/14/24 11:51 codeine Allergy Numbness Verified 10/14/24 11:51 ibuprofen Allergy GI upset Verified 10/14/24 11:51 Sulfa (Sulfonamide Allergy Unknown Verified 10/14/24 11:51 Antibiotics) Vital Signs Vital Signs - 24 hr 10/14/24 11:56 Temperature 98.1 F Pulse Rate 99 Respiratory Rate 20 Blood Pressure 151/98 H Pulse Oximetry 99 Oxygen Delivery Room Air
--- NOTE | 2024-10-14 12:36 | PM.IMHP ---
H&P: HPI History of Present Illness Date/Time: 10/14/24 12:36 Chief Complaint: fecal incontinence PMFSH Past Medical History Medical History Hypotension Anxiety and depression TIA (transient ischemic attack) 2012 HTN (hypertension) Hypomagnesemia Screening for colon cancer Mini stroke (~2012) Chronic headaches Acid reflux Diabetes Arthritis Surgical History Surgical History History of hand surgery trigger finger -right 3rd finger x3 History of bladder suspension procedure History of arthroscopy of left knee H/O: hysterectomy (~1979) Family History Family History Father Hypertension Mother Breast cancer Social History Social History Social History: Patient declined SDOH 02/12/24 Smoking status: Former smoker Tobacco type: cigarettes Additional smoking assessment comments: quit smoking about 40 years ago Alcohol intake: current Alcohol use details: OCC. Substance use: never Substance use type: does not use Do You Feel Safe in your Home?: Yes Lack of Transportation: No Lack of Food: Never True Current Housing: I Have Housing Concerned About Future Housing: No Difficulty Paying Gas/Electric Bills: No Difficulty Paying for Meds: No Currently Unemployed: No Difficulty w/ Childcare or Family Care: No Living arrangements: alone Occupation/Education: retired Gender identity (if verbalized by the patient): Female Spiritual care concerns: No Agree to blood products: Yes Meds Home Medications and Allergies Home Medications ?Medication ?Instructions ?Recorded ?Confirmed ?Type cariprazine 1.5 mg capsule 1.5 mg PO DAILY #30 caps 01/08/24 10/06/24 Rx (Vraylar) venlafaxine 150 mg 150 mg PO DAILY #90 caps 05/01/24 10/14/24 Rx capsule,extended release 24 hr bupropion HCl 150 mg 24 hr tablet, 150 mg PO QAM 05/08/24 10/14/24 History extended release acetaminophen 500 mg tablet 500 mg PO Q6H PRN fever or pain 07/03/24 10/06/24 History glucose 4 gram chewable tablet 16 g (4 x 4 gram) PO Q15M PRN 07/22/24 10/06/24 Rx (Dex4 Glucose) hypoglycemia #60 tabs linagliptin 5 mg tablet (Tradjenta) 5 mg PO QAM #90 tabs 07/22/24 10/14/24 Rx pen needle, diabetic 32 gauge x #400 ea 07/22/24 09/15/24 Rx 5/32 (Chante Pen Needle) insulin lispro 100 unit/mL 5 unit (0.05 mL) subcut TIDWMEAL 07/23/24 10/06/24 Rx subcutaneous pen (Humalog KwikPen #30 mL (U-100) Insulin) pravastatin 40 mg tablet 40 mg PO DAILY #90 tabs 08/10/24 10/14/24 Rx mupirocin 2 % topical ointment 1 applic topical BID #22 grams 08/28/24 10/06/24 Rx apixaban 5 mg tablet (Eliquis) 5 mg PO BID #180 tabs 08/31/24 10/14/24 Rx clopidogrel 75 mg tablet 75 mg PO DAILY #90 tabs 09/02/24 10/14/24 Rx magnesium oxide 400 mg (241.3 mg 400 mg PO DAILY 09/16/24 10/14/24 History magnesium) tablet furosemide 20 mg tablet 20 mg PO QAM PRN edema #30 tabs 10/02/24 10/06/24 Rx OMEGA XL 1 cap PO DAILY 10/06/24 10/06/24 History glucagon 1 mg/0.2 mL subcutaneous 1 mg subcut ONCE PRN hypoglycemia 10/06/24 10/06/24 History auto-injector (Gvoke HypoPen 2-Pack) insulin glargine 100 unit/mL (3 50 unit subcut QPM 10/06/24 10/14/24 History mL) subcutaneous pen (Basaglar KwikPen U-100 Insulin) Allergies Allergy/AdvReac Type Severity Reaction Status Date / Time Penicillins Allergy Mild Swelling Verified 10/14/24 11:51 pentazocine Allergy Mild Unknown Verified 10/14/24 11:51 albuterol Allergy syncope Verified 10/14/24 11:51 aspirin Allergy Swelling Verified 10/14/24 11:51 codeine Allergy Numbness Verified 10/14/24 11:51 ibuprofen Allergy GI upset Verified 10/14/24 11:51 Sulfa (Sulfonamide Allergy Unknown Verified 10/14/24 11:51 Antibiotics) Vital Signs Vital Signs - 24 hr 10/14/24 11:56 Temperature 98.1 F Pulse Rate 99 Respiratory Rate 20 Blood Pressure 151/98 H Pulse Oximetry 99 Oxygen Delivery Room Air Exam Const: General: cooperative and healthy appearing Resp: Effort & Inspection: normal respiratory effort and able to speak in complete sentences Auscultation: clear to auscultation bilaterally Cardio: Rate: regular rate Rhythm: regular rhythm GI: Inspection: normal to inspection GI Palp: No No hepatosplenomegaly present Auscultation: normal bowel sounds Rectal Exam: deferred Skin: General skin exam: normal color Psych: Appearance: grossly normal Mental Status: mental status grossly normal Assessment and Plan Assessment and plan (1) Fecal incontinence: Code(s): R15.9 - Full incontinence of feces Status: Acute Assessment and Plan: The patient is deemed a good candidate for the procedure. Consent signed. Will proceed.
[2024-10-14 12:57] VITALS: BP 146/81; PULSE 85; RESP 20; O2SAT 94
[2024-10-14 13:07] VITALS: BP 150/77; PULSE 76; RESP 20; O2SAT 100
[2024-10-14 13:17] VITALS: BP 151/84; PULSE 80; RESP 20; O2SAT 100
== END 2024-10-14 13:32 | disposition home or self-care (01) ==
PROVIDERS: PCP Physician Assistant Medical; Visit Provider Internal Medicine Gastroenterology
PROC: 0DJD8ZZ Inspection of Lower Intestinal Tract, Via Natural or Artificial Opening Endoscopic (ICD-10-PCS; CPT 45330; principal; 2024-10-14 12:30)
DX: R15.9 Full incontinence of feces (principal); K57.30 Diverticulosis of large intestine without perforation or abscess without bleeding; Z87.891 Personal history of nicotine dependence
CPT/HCPCS: 45330; 82948; J2003; J2704; J7120

== ENCOUNTER 2024-12-22 14:30 | Emergency (ER) | payer MEDICARE, SELFPAY ==
--- NOTE | ~2024-12-22 | XR_ITS ---
EXAM/PROCEDURE: XR chest 2V - 12/22/2024 15:27 CDT HISTORY: 79 years old Female with cp, sob TECHNIQUE: Two view(s) of the chest. COMPARISON: 09/15/2024 FINDINGS: LUNGS/ PLEURA: Airspace opacity in both lung bases. No pneumothorax or pleural effusion. HEART/ MEDIASTINUM: Heart appears normal in size. BONES: Degenerative changes. OTHER: Visualized upper abdomen is unremarkable. IMPRESSION: Airspace opacities in both lung bases may represent atelectasis, scarring, edema versus bibasilar pneumonia. Clinical correlation is recommended. Reviewed, dictated and finalized at location A. IMPRESSION: Airspace opacities in both lung bases may represent atelectasis, scarring, dariel a versus bibasilar pneumonia. Clinical correlation is recommended.
[2024-12-22 14:28] VITALS: BP 155/107; PULSE 107; RESP 16; TEMP 36.9; O2SAT 94
--- NOTE | 2024-12-22 14:38 | ECG_ITS ---
Test Date: 2024-12-22 14:35:17 Measurements Intervals [place] Rate: 107 P: 26 MI: 182 QRS: -2 QRSD: 80 T: 27 QT: 349 QTc: 466 Interpretive Statements SINUS TACHYCARDIA WITH OCCASIONAL VENTRICULAR PREMATURE COMPLEXES CONSIDER INFERIOR INFARCT, AGE INDETERMINATE BORDERLINE ST-T WAVE ABNORMALITY- ANTEROLAT/HIGH LAT LEADS BASELINE ARTIFACT- I, II, III, AVR, AVL, AVF ABNORMAL ECG No previous ECG available for comparison Electronically Signed On 12-22-2024 16:55:31 CDT by Maged Guzman D.O.
--- NOTE | 2024-12-22 14:41 | ED.CHESTPAIN ---
HPI - Chest Pain General Chief Complaint: Chest Pain Stated Complaint: chest pain History of Present Illness HPI narrative: This is an 79-year-old female with history of TIA, diabetes, hypertension who presents to the ED for chest pain. Patient states for the past couple days, she has been having left-sided chest pain that radiates to her back and occasionally to her left side. She states that today, the pain became significantly worse. She was seen by her PCP today advised that she come to the ED for further evaluation. Patient states that her pain is worse with deep inspiration. She has been having a cough productive of white sputum. She is a former smoker 30 years ago. Denies fevers, chills, nausea, vomiting, diarrhea, constipation, abdominal pain. Related Data Home Medications ?Medication ?Instructions ?Recorded ?Confirmed ?Last Taken ?Type bupropion HCl 150 mg 24 hr tablet, 150 mg PO QAM 05/08/24 12/22/24 10/13/24 History extended release acetaminophen 500 mg tablet 500 mg PO Q6H PRN fever or pain 07/03/24 12/22/24 Unknown History OMEGA XL 1 cap PO DAILY 10/06/24 12/22/24 Unknown History glucagon 1 mg/0.2 mL subcutaneous 1 mg subcut ONCE PRN hypoglycemia 10/06/24 12/22/24 Unknown History auto-injector (Gvoke HypoPen 2-Pack) insulin glargine 100 unit/mL (3 50 unit subcut QPM 10/06/24 12/22/24 10/14/24 History mL) subcutaneous pen (Basaglar KwikPen U-100 Insulin) Allergies Allergy/AdvReac Type Severity Reaction Status Date / Time Penicillins Allergy Mild Swelling Verified 12/22/24 14:39 pentazocine Allergy Mild Unknown Verified 12/22/24 14:39 albuterol Allergy syncope Verified 12/22/24 14:39 aspirin Allergy Swelling Verified 12/22/24 14:39 codeine Allergy Numbness Verified 12/22/24 14:39 Sulfa (Sulfonamide Allergy Unknown Verified 12/22/24 14:39 Antibiotics) ibuprofen AdvReac GI upset Verified 12/22/24 14:58 Review of Systems Review of Systems: Gen.: Denies fevers or chills Eyes: Denies eye pain or visual change ENT: Denies congestion Respiratory: As per HPI CV: As per HPI GI: Denies abdominal pain nausea, emesis or diarrhea denies burning, urgency, frequency or hematuria Musculoskeletal: Denies back pain or muscle pain Neuro: Denies numbness, tingling, weakness or focal weakness Skin: Denies rash Except as documented, all other systems reviewed and negative [facility] Past Medical History Medical History Hypotension Anxiety and depression TIA (transient ischemic attack) 2012 HTN (hypertension) Hypomagnesemia Screening for colon cancer Mini stroke (~2012) Chronic headaches Acid reflux Diabetes Arthritis Surgical History Surgical History History of hand surgery trigger finger -right 3rd finger x3 History of bladder suspension procedure History of arthroscopy of left knee H/O: hysterectomy (~1979) Family History Family History Father Hypertension Mother Breast cancer Social History Social History Social History: Patient declined SDOH 02/12/24 Smoking status: Former smoker Tobacco type: cigarettes Additional smoking assessment comments: quit smoking about 40 years ago Alcohol intake: current Alcohol use details: OCC. Substance use: never Substance use type: does not use Do You Feel Safe in your Home?: Yes Lack of Transportation: No Lack of Food: Never True Current Housing: I Have Housing Concerned About Future Housing: No Difficulty Paying Gas/Electric Bills: No Difficulty Paying for Meds: No Currently Unemployed: No Difficulty w/ Childcare or Family Care: No Living arrangements: alone Occupation/Education: retired Gender identity (if verbalized by the patient): Female Spiritual care concerns: No Agree to blood products: Yes Exam Narrative: APPEARANCE: No acute distress, nontoxic, resting in bed EYES: EOMI HEENT: Normocephalic, atraumatic, OMM RESPIRATORY: No respiratory distress Clear to auscultation bilaterally with no rhonchi wheezing or rales. CARDIOVASCULAR: Tachycardic. TTP over the left chest wall ABDOMINAL: Soft, nontender, nondistended, no rebound or guarding MUSCULOSKELETAl: Moves all extremities. No clubbing, cyanosis or edema. NEURO: Awake and alert. Following commands, speech normal, no focal deficits SKIN:: Warm, dry. No rashes lesions or abrasions PSYCHIATRIC: Normal affect/mood, Course Vital Signs Vital signs: Vital Signs Temperature 98.5 F 12/22/24 14:28 Pulse Rate 107 H 12/22/24 14:28 Respiratory Rate 16 12/22/24 14:28 Blood Pressure 155/107 H 12/22/24 14:28 Pulse Oximetry 94 12/22/24 14:28 Oxygen Delivery Room Air 12/22/24 14:28 Temperature 98.5 F 12/22/24 14:28 Pulse Rate 94 12/22/24 18:03 Respiratory Rate 18 12/22/24 18:03 Blood Pressure 131/76 12/22/24 18:03 Pulse Oximetry 95 12/22/24 18:03 Oxygen Delivery Room Air 12/22/24 14:54 MDM - Chest Pain MDM Narrative Medical decision making narrative: 79-year-old female that presented to the ED for chest pain. On initial evaluation, patient was mildly tachycardic at 107, remaining vital signs stable. Patient is already on Eliquis. Low suspicion for PE at this time anyway given symptomatology. Initial EKG showed tachycardia without any concerning findings. Initial troponin negative. She did have a mild leukocytosis. Chest x-ray showed possible evidence pneumonia versus atelectasis. Repeat troponin negative. Heart score 3. Given the negative troponins, I suspect patient may have a developing pneumonia causing her symptoms. She will be given prescriptions for cefuroxime and doxycycline. She was advised to follow-up with her PCP in the next week for evaluation. Patient and daughter were agreeable to plan. Given strict return precautions. Differential Diagnosis Differential diagnosis: Likely atypical chest pain, costochondritis and chest pain Lab Data Attestation: I reviewed the patient's lab results. 12/22/24 14:49 12/22/24 14:49 Labs: Lab Results 12/22/24 12/22/24 12/22/24 Range/Units 14:49 14:49 18:00 WBC 12.1 H (4.5-10.0) K/mm3 RBC 4.57 (4.2-5.4) M/mm3 Hgb 14.2 (12.0-15.0) g/dL Hct 42.3 (37.0-47.0) % MCV 92.6 (80-100) fl MCH 31.1 (26-34) pg MCHC 33.6 (32-36) g/dl RDW 12.4 (11.5-14.5) % Plt Count 244 (150-375) k/mm3 MPV 9.5 (7.4-10.4) fl Immature Gran % (Auto) 0.3 (0-0.5) % Neut % (Auto) 69.7 (45.5-73.1) % Lymph % (Auto) 17.8 L (18.3-44.2) % Esmeralda % (Auto) 10.9 H (2.6-8.5) % Eos % (Auto) 1.0 (0-4.4) % Baso % (Auto) 0.3 (0.2-1.2) % Lymph # (Auto) 2.16 (0.9-3.2) K/mm3 Esmeralda # (Auto) 1.3 H (0.1-0.6) K/mm3 Eos # (Auto) 0.1 (0-0.3) K/mm3 Baso # (Auto) 0.0 (0.0-0.1) K/mm3 Abs Immat Gran (auto) 0.04 H (0.00-0.031) K/mm3 Absolute Neuts (auto) 8.5 H (1.3-6.7) K/mm3 Absolute Nucleated RBC 0.000 (0.0-0.012) K/mm3 Nucleated RBC % 0.0 (0.0-0.2) % PT 16.6 H (11.1-14.7) Seconds INR 1.3 APTT 36.6 (22.3-36.8) Seconds D-Dimer 0.42 Cancelled (<0.48) ug/mL Sodium 131 L (137-145) mmol/L Potassium 3.8 (3.4-5.0) mmol/L Chloride 98 (98-107) mmol/L Carbon Dioxide 26 (22-30) mmol/L Anion Gap 7 (4-12) mmol/L BUN 17 (7-17) mg/dL Creatinine 0.81 (0.7-1.0) mg/dL Estim Creat Clear Calc 49 ml/min Estimated GFR > 60 (59 - ) Glucose 243 H (65-110) mg/dL Calcium 9.0 (8.4-10.2) mg/dL Total Bilirubin 0.6 (0.2-1.3) mg/dL AST 32 (14-36) U/L ALT 18 (6-35) U/L Alkaline Phosphatase 83 (38-126) U/L Troponin I < 0.012 < 0.012 (0.000-0.034) ng/mL Total Protein 6.9 (6.3-8.2) g/dL Albumin 3.6 (3.5-5.1) g/dL Lipase 125 (23-300) U/L Imaging Data Radiologist's impression: Impressions Chest X-Ray 12/22/24 15:35 IMPRESSION: Airspace opacities in both lung bases may represent atelectasis, scarring, edema versus bibasilar pneumonia. Clinical correlation is recommended. ECG Data EKG #1: Attestation: I personally reviewed and interpreted this ECG as follows: ECG completion date: 12/22/24 ECG completion time: 14:35 Prior ECG tracings: not available for review Interpretation: Sinus tachycardia rate of 107, normal axis, normal intervals, Q-wave in III and AVF, no acute ST or T-wave changes. Discharge Plan Discharge Clinical Impression: CAP (community acquired pneumonia) Qualifiers: Laterality: unspecified laterality Qualified Code(s): J18.9 - Pneumonia, unspecified organism Patient Disposition: Home Condition: Stable Instructions: Antibiotic Form, Community Acquired Pneumonia (ED) Patient Language: Sami Prescriptions: New doxycycline hyclate 100 mg capsule 100 mg PO BID Qty: 14 0RF cefuroxime axetil 500 mg tablet 500 mg PO BID Qty: 14 0RF No Action Vraylar 1.5 mg capsule 1.5 mg PO DAILY Qty: 30 1RF Tradjenta 5 mg tablet 5 mg PO QAM Qty: 90 1RF glucose [Dex4 Glucose] 4 gram tablet,chewable 16 g PO Q15M PRN (Reason: hypoglycemia) Qty: 60 1RF Rx Instructions: until symptoms of low blood sugar are controlled (DME) pen needle, diabetic [Chante Pen Needle] 32 gauge x 5/32 needle See Rx Instructions .Route Qty: 400 1RF Rx Instructions: Use to administer insulin 4 times a day venlafaxine 150 mg capsule,extended release 24hr 150 mg PO DAILY Qty: 90 1RF OMEGA XL 1 cap PO DAILY insulin glargine [Basaglar KwikPen U-100 Insulin] 100 unit/mL (3 mL) insulin pen 50 unit subcut QPM Gvoke HypoPen 2-Pack 1 mg/0.2 mL auto-injector 1 mg subcut ONCE PRN (Reason: hypoglycemia) Rx Instructions: may repeat once after 15 minutes if no response bupropion HCl 150 mg tablet extended release 24 hr 150 mg PO QAM acetaminophen 500 mg tablet 500 mg PO Q6H PRN (Reason: fever or pain) insulin lispro [Humalog KwikPen Insulin] 100 unit/mL insulin pen 5 unit subcut TIDWMEAL MDD 40 Qty: 30 3RF Rx Instructions: 5 units premeal + Sliding scale insulin 150-200: 1 unit 201-250: 2 units 251-300: 3 units 301-350: 4 units 351-400: 5 units >401: 6 units mupirocin 2 % ointment 1 applic topical BID Qty: 22 1RF Eliquis 5 mg tablet 5 mg PO BID Qty: 180 0RF clopidogrel 75 mg tablet 75 mg PO DAILY Qty: 90 1RF furosemide 20 mg tablet 20 mg PO QAM PRN (Reason: edema) Qty: 30 0RF (DME) FreeStyle James 3 [place] Misc See Rx Instructions .Route Qty: 1 0RF Rx Instructions: As directed magnesium oxide 400 mg (241.3 mg magnesium) tablet 400 mg PO DAILY Qty: 90 0RF pravastatin 40 mg tablet 40 mg PO DAILY Qty: 90 0RF Follow-up/Referrals: Hellen Jarquin PA-C [Primary Care Provider, Family Practice]
[2024-12-22 14:54] VITALS: O2SAT 97
[2024-12-22 14:55] LABS: Hematocrit 42.3 % (37.0-47.0); Hemoglobin 14.2 g/dL (12.0-15.0); Immature Granulocyte Percent A 0.3 % (0-0.5); Lymphocytes Absolute Auto 2.16 K/mm3 (0.9-3.2); Mean Corpuscular HGB Conc 33.6 g/dl (32-36); Mean Corpuscular Hemoglobin 31.1 pg (26-34); Mean Corpuscular Volume 92.6 fl (80-100); Nucleated Red Blood Cells Absolute Auto 0.000 K/mm3 (0.0-0.012); Nucleated Red Blood Cells Perc 0.0 % (0.0-0.2); Platelet Count Result 244 k/mm3 (150-375); Red Blood Count 4.57 M/mm3 (4.2-5.4); White Blood Count 12.1 K/mm3 (4.5-10.0)
[2024-12-22] MEDS: LIDOCAINE 5% PATCH 1 PATCH TRANSDERM (15:03)
[2024-12-22] MEDS: ACETAMINOPHEN 500 MG TABLET 1000 MG PO (15:03)
[2024-12-22 15:05] LABS: Alanine Aminotransferase 18 U/L (6-35); Albumin Level 3.6 g/dL (3.5-5.1); Alkaline Phosphatase 83 U/L (38-126); Anion Gap 7 mmol/L (4-12); Aspartate Amino Transferase 32 U/L (14-36); Bilirubin,Total 0.6 mg/dL (0.2-1.3); Blood Urea Nitrogen 17 mg/dL (7-17); Calcium 9.0 mg/dL (8.4-10.2); Carbon Dioxide 26 mmol/L (22-30); Chloride 98 mmol/L (98-107); Estimated CRCL calculation 49 ml/min; Estimated Glomerular Filt Rate > 60; Glucose 243 mg/dL (65-110); Lipase 125 U/L (23-300); Potassium 3.8 mmol/L (3.4-5.0); Sodium 131 mmol/L (137-145); Total Protein 6.9 g/dL (6.3-8.2)
[2024-12-22 15:07] VITALS: BP 111/80; PULSE 103; PULSE 109; RESP 17; O2SAT 96
[2024-12-22 15:17] LABS: Troponin I < 0.012 ng/mL (0.000-0.034)
[2024-12-22 15:19] LABS: INR 1.3; Prothrombin Time 16.6 Seconds (11.1-14.7)
[2024-12-22 15:20] LABS: Partial Thromboplastin Time 36.6 Seconds (22.3-36.8)
[2024-12-22] MEDS: SODIUM CHLORIDE 0.9% IV 1,000 ML 999 ML IV CONT (15:44)
[2024-12-22 15:45] VITALS: BP 131/76; PULSE 103; RESP 19; O2SAT 98
--- OUTSIDE RECORDS SUMMARY | 2024-12-22 16:10 | XMS_ITS | Encounter Summary ---
Author Organization [facility] Address [facility] [place] [address] Care Team Providers Care Analysis Internship Name Role Phone Hellen Jarquin PA-C Primary Care Provider [phone] Encounter Details Date Type Department Care Team (Late st Contact Info) Description 03/25/2024 [facility] Message Enc [facility] [address] [address] [facility], [facility] Provider referral Social History Tobacco Use Types [...] from your doctor or pharmacy? Never 01/30/2024 [facility] Utilities Answer Date Recorded In the past [...] week 01/30/2024 How often do you attend [facility] or jehovah's witness services? More than 4 times per year 01/30/2024 Do you belong to any clubs o r organizations such as confucianism groups, unions, fraternal or athletic groups, or [...] Recorded Patient Health Questionnaire-2 Score 0 02/13/2024 [facility] - [...] place to sleep or slept in a snf (including now)? No 03/24/2023 Housing Stability Vital Sign Answer Hussain e Recorded In the last 12 months, was t here a time when you were not able to pay the mortgage or rent on time? No 03/05/2024 In the past 12 months, how m any times have you moved where you were living? 1 03/05/2024 At any time in the past 12 m [facility], were you homeless or living in a snf (including now)? No 03/05/2024 Comments No Sex and Gender Information Value Date Recorded Sex Assigned at Female 05/31/2024 8:39 PM SECURITIES ANALYST Legal Sex Female 10:55 PM SECURITIES ANALYST Gender Identity Female 05/31/2024 8:39 PM SECURITIES ANALYST Sexual Orientation Not on file documented as [...] and discharge planning Lifestyle No Helen Santos, REPRODUCTIVE ENDOCRINOLOGIST documented as of this encounter Visit Diagnoses Not on filedocumented in this encounter Additional Health Concerns Infection Onset Date Last Indicated Resolved Time C. difficile 04/13/2024 04/13/2024 06/09/2024 9:04 AM SECURITIES ANALYST C. difficile 06/27/2024 06/27/2024 documented as of this encounter Care Teams Analysis Internship Relationship Specialty Start Date End Date Hellen Jarquin PA-C [address] [place] [address] PCP - General PHYSICIAN RAIL TRACK MAINTAINER 08/18/22 documented as of this encounter
--- OUTSIDE RECORDS SUMMARY | 2024-12-22 16:10 | XMS_ITS | Clinical Summary ---
Author Organization [facility] Care Team Providers Care Polisher Apprentice Name Role Phone Unavailable Primary Care Provider [...]
--- OUTSIDE RECORDS SUMMARY | 2024-12-22 16:10 | XMS_ITS | Clinical Summary ---
Author Organization [facility] Address [address] [place] [address] Care Team Providers Care Export Freight Specialist Name Role Phone Ngozi Oquendo M.T., MD Primary Care Provider [phone] Chidi Reis MD Unavailable [phone] Allergies Active Allergy Reactions Criticality Noted Date [...] mellitus (HCC) Diabetes Type 2 diabetes mellitus Diabete s type 2 Hx Other Medical 1964 ; Outc ome: 6 lb(s) 12 oz Female Hx Other Medical 1965 ; Outc ome: 7 lb(s) 2 oz Male Diabetes (HCC) 2009 COPD (chronic obstructive pu lmonary disease) 2016 Family History Medical History Relation Name [...] on file Legal Sex Female 1:43 AM REPAIRER 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 CAR Gender Identity Not on file Sexual Orientation [...] of Treatment Not on file Insurance MEDICARE [facility] MEDICARE SUPPLEMENT INSURANCE MEDICARE ADVANTAGE IDPA Advance Directives For more information, please contact: [phone] * Full Code (Latest Code Status on File) Date Activated Date Inactivated Comments 02/09/2023 6:04 AM Care Teams Export Freight Specialist Relationship Specialty Start Date End Date Ngozi Oquendo M.T., MD [address] [place] [id number] PCP - General Emergency Medicine 12/11/18 Chidi Reis MD [address] [place] [address] Internal Medicine 03/26/24
--- OUTSIDE RECORDS SUMMARY | 2024-12-22 16:10 | XMS_ITS | Encounter Summary ---
Author Organization [facility] Address [address] [place] [address] Care Team Providers Care Provider Contracting Consultant Name Role Phone Hellen Jarquin PA-C Primary Care Provider [phone] Encounter Details Date Type Department Care Team (Late st Contact Info) Description 02/01/2023 Therapy Plan [facility] [address] [place], [place] [id number] Wade Altamirano MD [address] [place] [id number] Social History Tobacco Use Types Packs/Day [...] often do you attend chur ch or yarsani services? 1 to 4 times per year 09/16/2022 Do you belong to any clubs o r organizations such as restoration groups, unions, fraternal or athletic groups, or [...] Patient Health Questionnaire-2 Score 0 01/25/2023 [facility] - [...] place to sleep or slept in a retirement (including now)? No 11/16/2022 Comments No Sex and Gender Information Value Date Recorded Sex Assigned at Female 05/31/2024 8:39 PM CLINICAL LABORATORY TECHNICIAN Legal Sex Female 10:55 PM CLINICAL LABORATORY TECHNICIAN Gender Identity Female 05/31/2024 8:39 PM CLINICAL LABORATORY TECHNICIAN Sexual Orientation Not on file documented as [...] Author Status No 11/16/2022 3:08 PM Karin Cehek RN Active * Calculated C-SSRS Risk Score (Lifetime/Recent) Answer Date of Assessment Author Status No Risk Indicated 02/04/2023 8:03 PM Mary Garcia RN Active * [place] Suicide Severity Rating Scale (Screener/Recent Self-Report) Question [...] Comment:Isolation period completed 11/15/2022 02/05/202303/25 7:41 AM CLINICAL LABORATORY TECHNICIAN COVID-19 Rule Out 02/04/2023 02/04/2023 02/04/2023 8:49 PM CDT COVID-19 Rule Out 02/05/2023 02/05/2023 02/05/2023 7:41 PM CDT COVID-19 Rule Out 03/24/2023 03/24/2023 03/24/2023 3:57 PM CLINICAL LABORATORY TECHNICIAN C. difficile 05/03/2023 05/03/2023 01/24/2024 7:56 AM CDT COVID-19 Rule Out 01/23/2024 01/23/2024 01/23/2024 6:41 PM CDT COVID-19 Rule Out 01/25/2024 01/25/2024 01/26/2024 2:22 PM CDT C. difficile 01/30/2024 01/30/2024 03/05/2024 12:0 2 PM CDT COVID-19 Rule Out 03/05/2024 03/05/2024 03/05/2024 2:05 PM CDT C. difficile 04/13/2024 04/13/2024 06/09/2024 9:04 AM CLINICAL LABORATORY TECHNICIAN C. difficile 06/27/2024 06/27/2024 documented as of this encounter Care Teams Provider Contracting Consultant Relationship Specialty Start Date End Date Hellen Jarquin PA-C [address] [place] [address] [address] [place] [address] PCP - General PHYSICIAN QUALITY ASSURANCE TECHNICIAN 08/18/22 documented as of this encounter
--- OUTSIDE RECORDS SUMMARY | 2024-12-22 16:10 | XMS_ITS | Clinical Summary ---
Author Organization [facility] Address [address] [place] [address] Care Team Providers Care Enroute Controller Name Role Phone Hellen Jarquin PA-C Primary Care Provider [phone]- [phone] Allergies Active Allergy Reactions Criticality Noted Date [...] type 06/12/2023 Hyperglycemia due to diabetes mellitus ([facility]) 03/27/2023 Type 2 diabetes mellitus wit hout complication, unspecified whether terminal system operator insulin use ([facility]) 03/25/20232022 Diabetes mellitus due to und erlying condition with hyperglycemia ([facility]) 03/25/2023 Uncontrolled type 2 diabetes mellitus with hyperglycemia ([facility]) 03/24/2023 Clostridium difficile diarrhea 02/07/2023 C. difficile enteritis 11/15/2022 Recurrent Clostridium difficile diarrhea 023 Altered mental status 10/31/2022 Colitis 10/15/2022 Pulmonary embolism ([facility]) 09/30/2022 Physical deconditioning 09/08/2022 Diverticulitis 09/01/2022 Acute diverticulitis 08/31/2022 Knee pain, acute 12/05/2018 Hypercholesteremia Diabetes mellitus ([facility]) History of stroke Resolved Problems Problem Noted Date Diagnosed Date Resolved Date Colitis due to Clostridium difficile 10/14/2022 10/15/2022 Immunizations Immunization Administration Dates Next Due Fluzone [...] from your doctor or pharmacy? Never 04/16/2024 [facility] Utilities Answer Date Recorded In the past [...] week 04/16/2024 How often do you attend [facility] or uatsdin services? More than 4 times per year 04/16/2024 Do you belong to any clubs o r organizations such as latter day groups, unions, fraternal or athletic groups, or [...] Recorded Patient Health Questionnaire-2 Score 0 08/04/2024 [facility] of Occupat ional Health - Occupational Stress [...] place to sleep or slept in a long term (including now)? No 03/24/2023 Housing Stability Vital Sign Answer Hussain e Recorded In the last 12 months, was t here a time when you were not able to pay the mortgage or rent on time? No 06/26/2024 In the past 12 months, how m any times have you moved where you were living? 0 06/26/2024 At any time in the past 12 m [facility], were you homeless or living in a long term (including now)? No 06/26/2024 Comments No Sex and Gender Information Value Date Recorded Sex Assigned at Female 05/31/2024 8:39 PM VARNISH MAKER HELPER Legal Sex Female 10:55 PM VARNISH MAKER HELPER Gender Identity Female 05/31/2024 8:39 PM VARNISH MAKER HELPER Sexual Orientation Not on file Last Filed Vital Signs Vital Sign Reading Time Taken Comments Blood Pressure 123/79 07/01/2024 11:10 AM VARNISH MAKER HELPER Pulse 119 07/01/2024 11:10 AM VARNISH MAKER HELPER nurse notified Temperature 36.3 C (97.3 F) 07/01/2024 11:10 AM VARNISH MAKER HELPER Respiratory Rate 18 07/01/2024 11:1 0 AM VARNISH MAKER HELPER Oxygen Saturation 93% 07/01/2024 11: 10 AM VARNISH MAKER HELPER Inhaled Oxygen Concentration - - Weight 75.5 kg (166 lb 7.2 oz) 07/01/2024 4:55 AM VARNISH MAKER HELPER Height 160 cm (5' 3) 06/26/2024 3:39 PM VARNISH MAKER HELPER Body Mass Index 29.48 06/26/2024 3:39 PM VARNISH MAKER HELPER Plan of Treatment Health Maintenance Due Date Last Done Comments Kidney Health Evaluation 1944 Diabetes: Retinopathy Eye Exam 1962 Pneumococcal Vaccine: 50+ Years (1 of 2 - PCV) 07/10/1963 Zoster Vaccines (1 of 2) 1994 Annual Medicare Wellness Visit 2009 Dexa Scan (General) 2009 RSV Immunization or 60+ Years (1 - 1-dose 75+ series) 07/10/2019 COVID-19 Vaccine ( - season) 2024 04/12/2021, 07/04/2020, 06/03/2020 Hemoglobin A1C 08/01/2024 05/03/2024, 01/05, 01/24/2024, Additional history exists Lipid Panel 01/25/2025 01/26/2024, 01/05, 10/14/2022 DTaP, Tdap and Td Vaccines (2 - Td or Tdap) 05/31/2034 05/31/2024 PHQ-2 ([facility]ician [facility]) Completed 08/04/2024 Meningococcal B Vaccine Aged Out [...] and discharge planning Lifestyle No Helen Santos, ELECTROMECHANICAL TECHNOLOGISToceanic sciences professor Devices Implanted Type Area Chemical Processing Supervisor Device Identifier Shelf Expiration Date Model / Serial / Lot 1.5 6 Hole Plate Implanted:Qty: 1 on 06/09/2024 by Vishnu Olsen, DO at [facility] Right: Hand DEPUY SYNTHES .003 / / Description:Implanted to fou rth metacarpal 1.5 Cortex Screw 11mm Implanted:Qty: 2 on 06/09/2024 by Vishnu Olsen DO at [facility] Right: Hand DEPUY SYNTHES .111 / / Description:Implanted to fou rth metacarpal 1.5 Cortex Screw 12mm Implanted:Qty: 1 on 06/09/2024 by Vishnu Olsen DO at [facility] Right: Hand DEPUY SYNTHES .112 / / Description:Implanted to fou rth metacarpal 1.5 Cortex Screw 10mm Implanted:Qty: 1 on 06/09/2024 by Vishnu Olsen DO at [facility] Right: Hand DEPUY SYNTHES .110 / / Description:Implanted to fou rth metacarpal 1.5 Cortex Screw 9mm Implanted:Qty: 1 on 06/09/2024 by Vishnu Olsen DO at [facility] Right: Hand DEPUY SYNTHES .109 / / Description:Implanted to fou rth metacarpal 1.5 Locking Screw 14mm Implanted:Qty: 1 on 06/09/2024 by Vishnu Olsen DO at [facility] Right: Hand DEPUY SYNTHES .014 / / Description:Implanted to fou rth metacarpal Explanted Type Area Chemical Processing Supervisor Device Identifier Shelf Expiration Date Model / Serial / Lot 1.5 Cortex Screw 12mm Explanted:Qty: 1 on 06/09/2024 by Vishnu Olsen DO at [facility] Right: Hand DEPUY SYNTHES .112 / / Description:Fourth metacarpa l Procedures Procedure Name Priority Date/Time Associated Diagnosis Comments HEMOGLOBIN, GLYCOSYLATED STAT 05/03/2024 2:00 PM VARNISH MAKER HELPER LIPID PANEL Routine 01/26/2024 4:30 AM CDT from Last 3 Months or Most Recently Relevant to Health Maintenance Results * (ABNORMAL) HEMOGLOBIN, GLYCOSYLATED (05/03/2024 2:00 PM VARNISH MAKER HELPER) HGB A1C 10.0(H) <5.7 % 05/03/2024 2:56 PM VARNISH MAKER HELPER [facility] Comment: INCREASED RISK OF DIABETES <5.7% NON-DIABETES 5.7-6.4% INCREASED RISK FOR FUTURE DIABETES > OR = 6.5 CONSISTENT WITH DIABETES STANDARDS OF MEDICAL CARE IN DIABETES-2010 DIABETES CARE, 33(SUPP 1): S1-S61,2010 ESTIMATED AVG GLUCOSE 240 mg/dL 05/03/2024 2:56 PM VARNISH MAKER HELPER [facility] 05/03/2024 2:00 PM VARNISH MAKER HELPER Deepa Stein NP LABORATORY Final Resul t [facility] [address] [place] [address], * LIPID PANEL (01/26/2024 4:30 AM CDT) CHOLESTEROL 133 <200.0 MG/DL 01/26/2024 5:46 AM CDT [facility] TRIGLYCERIDES 122 <150 MG/DL 01/26/2024 5:46 AM CDT [facility] HDL 51 >40.0 MG/DL 01/26/2024 5:46 AM CDT [facility] LDL (CALCULATED) 58 <100 MG/DL 01/26/20 5:46 AM CDT [facility] NON HDL CHOLESTEROL 82 <130 MG/DL 01/25 5:46 AM CDT [facility] CHOL/HDL RATIO 2.6 0.0 - 4.5 01/26/2024 5:46 AM CDT [facility] VLDL CALCULATION 24 5 - 55 MG/DL 01/26/2024 5:46 AM CDT [facility] LIPID INTERPRETATION 01/26/2024 5:46 AM CDT [facility] Comment: NIH CONCENSUS REPORT RECOMMENDATIONS: ADULT CHILD LOW RISK: CHOLESTEROL <200 <170 TRIGLYCERIDE <150 --- HDL >=60 --- LDL <100 <110 BORDERLINE: CHOLESTEROL 200-239 170-199 TRIGLYCERIDE 150-199 --- HDL 40-59 --- LDL 100-159 110-129 HIGH RISK: CHOLESTEROL >=240 >=200 TRIGLYCERIDE >=200 --- HDL <40 --- LDL >=160 >=130 01/26/2024 4:30 AM CDT Kathi Royal MD LABORATORY Final Result [facility] [address] [place] [address], from Last 3 Months or Most Recently Relevant to Health Maintenance Additional Health Concerns Infection Onset Date Last Indicated C. difficile 06/27/2024 06/27/2024 Insurance [facility] MEDICAID Advance Directives Documents on File Type Date Recorded Patient Pump Operator Expl anation DNR (Do Not Resuscitate) Documentation [...] 6:01 PM 04/16/2024 1:44 PM Care Teams Enroute Controller Relationship Specialty Start Date End Date Hellen Jarquin PA-C [address] [place], [place] [address] [place] [address] PCP - General PHYSICIAN AGRICULTURAL AND FORESTRY SUPERVISOR 08/18/22
[2024-12-22 17:23] VITALS: BP 155/85; PULSE 87; RESP 16; O2SAT 94
--- NOTE | 2024-12-22 17:30 | ECG_ITS ---
Test Date: 2024-12-22 17:38:45 Measurements Intervals [place] Rate: 94 P: 43 KS: 195 QRS: -2 QRSD: 90 T: 33 QT: 369 QTc: 462 Interpretive Statements SINUS RHYTHM CONSIDER INFERIOR INFARCT, AGE INDETERMINATE BORDERLINE ST-T WAVE ABNORMALITY- ANTEROLAT/HIGH LAT LEADS BASELINE ARTIFACT- I, II, III, AVR, AVF, V1, V6 ABNORMAL ECG Compared to ECG 12/22/2024 14:35:17 HEART RATE HAS DECREASED Electronically Signed On 12-22-2024 19:08:07 CDT by Maged Guzman D.O.
[2024-12-22 18:03] VITALS: BP 131/76; PULSE 94; RESP 18; O2SAT 95
[2024-12-22 19:01] LABS: Troponin I < 0.012 ng/mL (0.000-0.034)
[2024-12-22] MEDS: DOXYCYCLINE HYCLATE 100 MG TABLET PO (19:26)
== END 2024-12-22 19:35 | disposition home or self-care (01) ==
PROVIDERS: Emergency Provider Student in an Organized Health Care Education/Training Program; PCP Physician Assistant Medical
DX: J18.9 Pneumonia, unspecified organism (principal); I10 Essential (primary) hypertension; E11.9 Type 2 diabetes mellitus without complications; F41.9 Anxiety disorder, unspecified; F32.A Depression, unspecified; Z86.73 Personal history of transient ischemic attack (TIA), and cerebral infarction without residual deficits; Z87.891 Personal history of nicotine dependence; Z79.4 Long term (current) use of insulin; Z79.899 Other long term (current) drug therapy; Z79.01 Long term (current) use of anticoagulants; Z79.02 Long term (current) use of antithrombotics/antiplatelets; R00.0 Tachycardia, unspecified; I49.3 Ventricular premature depolarization; R94.31 Abnormal electrocardiogram [ECG] [EKG]
CPT/HCPCS: 36415; 71046; 80053; 83690; 84484; 85025; 85380; 85610; 85730; 93005; 96360; 99284; A9270; J7030

== ENCOUNTER 2024-12-28 16:22 | Emergency (ER) | payer MEDICARE, SELFPAY ==
[2024-12-28] VITALS (39 sets, daily range): BP systolic 121–184; BP diastolic 65–112; PULSE 93–128; RESP 5–31; TEMP 36.6; O2SAT 90–100
--- NOTE | ~2024-12-28 | CT_ITS ---
EXAMINATION: CT brain wo con DATE: 12/28/2024 21:37 INDICATION: Headache TECHNIQUE: Computed tomography (CT) of the head was performed without intravenous contrast. The dose-length product was 1362.00 mGy-cm. Automated exposure control and iterative reconstruction technique were employed. COMPARISON: None FINDINGS: Brain parenchymal volume is normal for age. There are scattered mild periventricular and subcortical white matter changes, most likely related to small vessel ischemic disease (microangiopathy). No ventriculomegaly or midline shift. Basilar cisterns are patent. No acute infarction, hemorrhage, mass or mass effect. Paranasal sinuses and mastoids are pneumatized. No depressed skull fractures. IMPRESSION: 1. No acute intracranial abnormality. Reviewed, dictated and finalized at location O.
--- OUTSIDE RECORDS SUMMARY | 2024-12-28 16:25 | XMS_ITS | Clinical Summary ---
Author Organization [facility] Care Team Providers Care Communications Specialist Name Role Phone Unavailable Primary Care [...]
--- OUTSIDE RECORDS SUMMARY | 2024-12-28 16:25 | XMS_ITS | Encounter Summary ---
Author Organization [facility] Address [facility] [place] [address] Care Team Providers Care Manager Civil Name Role Phone Hellen Jarquin PA-C Primary Care Provider [phone] Encounter Details Date Type Department Care Team (Late st Contact Info) Description 03/25/2024 [facility] Medical Message Enc [facility] Multispecialty [address] [address] [employer] [facility] Provider referral Social History Tobacco [...] your doctor or pharmacy? Never 01/30/2024 [facility] Utilities Answer Date Recorded In the past [...] week 01/30/2024 How often do you attend [facility] or anabaptism services? More than 4 times per year 01/30/2024 Do you belong to any clubs o r organizations such as buddhist groups, unions, fraternal or athletic groups, or [...] Recorded Patient Health Questionnaire-2 Score 0 02/13/2024 [facility] of Occupat ional Health - Occupational Stress [...] any time in the past 12 m [facility], were you homeless or living in a long-term (including now)? No 03/05/2024 Comments No Sex and Gender Information Value Date Recorded Sex Assigned at Female 05/31/2024 8:39 PM SPRAYER INSECTICIDE Legal Sex Female 10:55 PM SPRAYER INSECTICIDE Gender Identity Female 05/31/2024 8:39 PM SPRAYER INSECTICIDE Sexual Orientation Not on file documented as of this encounter Functional Status * Are you deaf or do you have serious difficulty hearing Answer Date of Assessment Author Status No 03/05/2024 10:19 PM CDT Asuncion Machado RN Active * Are you blind or do you have serious difficulty seeing, even when wearing glasses? Answer Date of Assessment Author Status No 03/05/2024 10:19 PM Asuncion Worrell RN Active * Do you have serious difficulty walking or climbing stairs? Answer Date of Assessment Author Status No 03/05/2024 10:19 PM DIANAT Asuncion Machado RN Active * Do you have difficulty dressing or bathing? Answer Date of Assessment Author Status Yes 03/05/2024 10:19 PM CDT Asuncion Machado RN Active * Because of a physical, mental, or emotional condition, do you have difficulty doing errands alone such as visiting a doctor's office or shopping? Answer Date of Assessment Author Status Yes 03/05/2024 10:19 PM CDT Asuncion Machado RN Active documented as of this encounter Mental Status * Because of a physical, mental, or emotional condition, do you have serious difficulty concentrating, remembering, or making decisions? Answer Entry Date Author Status Yes 03/05/2024 10:19 PM CDAsuncion Walton RN Active documented in this encounter Plan of Treatment Not on file documented as of this encounter Goals Goal Patient Goal Type Associated Problems Recent Progress Patient-Stated? 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, ONLINE MEDIA DIRECTOR documented as of this encounter Visit Diagnoses Not on filedocumented in this encounter Additional Health Concerns Infection Onset Date Last Indicated Resolved Time C. difficile 04/13/2024 04/13/2024 06/09/2024 9:04 AM SPRAYER INSECTICIDE C. difficile 06/27/2024 06/27/2024 12/24/2024 7:55 PM CDT documented as of this encounter Care Teams Manager Civil Relationship Specialty Start Date End Date Hellen Jarquin PA-C [address] [place] [address] PCP - General PHYSICIAN GAS METER READER 08/18/22 documented as of this encounter
--- OUTSIDE RECORDS SUMMARY | 2024-12-28 16:26 | XMS_ITS | Clinical Summary ---
Author Organization [facility] Address [address] [place] [address] Care Team Providers Care Tunnel Kiln Firer Name Role Phone Hellen Jarquin PA-C Primary Care Provider [phone]- [phone] Allergies Active Allergy Reactions Criticality Noted Date [...] type 06/12/2023 Hyperglycemia due to diabetes mellitus ([facility]) 03/27/2023 Type 2 diabetes mellitus wit hout complication, unspecified whether intermodal customer service insulin use ([facility]) 03/25/20232022 Diabetes mellitus due to und erlying condition with hyperglycemia ([facility]) 03/25/2023 Uncontrolled type 2 diabetes mellitus with hyperglycemia ([facility]) 03/24/2023 Clostridium difficile diarrhea 02/07/2023 C. difficile enteritis 11/15/2022 Recurrent Clostridium difficile diarrhea 023 Altered mental status 10/31/2022 Colitis 10/15/2022 Pulmonary embolism ([facility]) 09/30/2022 Physical deconditioning 09/08/2022 Diverticulitis 09/01/2022 Acute diverticulitis 08/31/2022 Knee pain, acute 12/05/2018 Hypercholesteremia Diabetes mellitus ([facility]) History of stroke Resolved Problems Problem Noted [...] from your doctor or pharmacy? Never 04/16/2024 [facility] Utilities Answer Date Recorded In the [...] How often do you attend [facility] or mormonism services? More than 4 times per year 04/16/2024 Do you belong to any clubs o r organizations such as christian groups, unions, fraternal or athletic groups, or [...] Recorded Patient Health Questionnaire-2 Score 0 08/04/2024 [facility] of Occupat ional Health - Occupational Stress [...] place to sleep or slept in a longterm (including now)? No 03/24/2023 Housing Stability Vital Sign Answer Hussain e Recorded In the last 12 months, was t here a time when you were not able to pay the mortgage or rent on time? No 06/26/2024 In the past 12 months, how m any times have you moved where you were living? 0 06/26/2024 At any time in the past 12 m [facility], were you homeless or living in a longterm (including now)? No 06/26/2024 Comments No Sex and Gender Information Value Date Recorded Sex Assigned at Female 05/31/2024 8:39 PM BLACK OFF WORKER Legal Sex Female 10:55 PM BLACK OFF WORKER Gender Identity Female 05/31/2024 8:39 PM BLACK OFF WORKER Sexual Orientation Not on file Last Filed Vital Signs Vital Sign Reading Time Taken Comments Blood Pressure 123/79 07/01/2024 11:10 AM BLACK OFF WORKER Pulse 119 07/01/2024 11:10 AM BLACK OFF WORKER nurse notified Temperature 36.3 C (97.3 F) 07/01/2024 11:10 AM BLACK OFF WORKER Respiratory Rate 18 07/01/2024 11:1 0 AM BLACK OFF WORKER Oxygen Saturation 93% 07/01/2024 11: 10 AM BLACK OFF WORKER Inhaled Oxygen Concentration - - Weight 75.5 kg (166 lb 7.2 oz) 07/01/2024 4:55 AM BLACK OFF WORKER Height 160 cm (5' 3) 06/26/2024 3:39 PM BLACK OFF WORKER Body Mass Index 29.48 06/26/2024 3:39 PM BLACK OFF WORKER Plan of Treatment Health Maintenance Due Date [...] Td or Tdap) 05/31/2034 05/31/2024 PHQ-2 (Physician [place]) Completed 08/04/2024 Meningococcal B Vaccine Aged Out No l onger eligible based on patient's age to complete this topic Meningococcal Vaccine Aged Out No melinda joreg eligible based on patient's age to complete this topic RSV Immunizations Under 20 Months Aged Out No longer eligible based on patient's age to complete this topic Goals Goal Patient Goal Type Associated Problems Recent Progress Patient-Stated? 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, UTILITY MECHANICpostdoctoral fellow Devices Implanted Type Area Respiratory Care Program Director Device Identifier Shelf Expiration Date Model / Serial / Lot 1.5 6 Hole Plate Implanted:Qty: 1 on 06/09/2024 by Vishnu Olsen, DO at [facility] Right: Hand DEPUY SYNTHES .003 / / Description:Implanted to fou rth metacarpal 1.5 Cortex Screw 11mm Implanted:Qty: 2 on 06/09/2024 by Vishnu Olsen DO at [facility] Right: Hand DEPUY SYNTHES .111 / / Description:Implanted to fou rth metacarpal 1.5 Cortex Screw 12mm Implanted:Qty: 1 on 06/09/2024 by Vishnu Olsen DO at [facility] Right: Hand DEPUY SYNTHES .112 / / Description:Implanted to fou rth metacarpal 1.5 Cortex Screw 10mm Implanted:Qty: 1 on 06/09/2024 by Vishnu Olsen DO at [facility] Right: Hand DEPUY SYNTHES .110 / / Description:Implanted to fou rth metacarpal 1.5 Cortex Screw 9mm Implanted:Qty: 1 on 06/09/2024 by Vishnu Olsen DO at [facility] Right: Hand DEPUY SYNTHES .109 / / Description:Implanted to fou rth metacarpal 1.5 Locking Screw 14mm Implanted:Qty: 1 on 06/09/2024 by Vishnu Olsen DO at [facility] Right: Hand DEPUY SYNTHES .014 / / Description:Implanted to fou rth metacarpal Explanted Type Area Respiratory Care Program Director Device Identifier Shelf Expiration Date Model / Serial / Lot 1.5 Cortex Screw 12mm Explanted:Qty: 1 on 06/09/2024 by Vishnu Olsen DO at [facility] Right: Hand DEPUY SYNTHES .112 / / Description:Fourth metacarpa l Procedures Procedure Name Priority Date/Time Associated Diagnosis Comments HEMOGLOBIN, GLYCOSYLATED STAT 05/03/2024 2:00 PM BLACK OFF WORKER LIPID PANEL Routine 01/26/2024 4:30 AM CDT from Last 3 Months or Most Recently Relevant to Health Maintenance Results * (ABNORMAL) HEMOGLOBIN, GLYCOSYLATED (05/03/2024 2:00 PM BLACK OFF WORKER) HGB A1C 10.0(H) <5.7 % 05/03/2024 2:56 PM BLACK OFF WORKER [facility] Comment: INCREASED RISK OF DIABETES <5.7% NON-DIABETES 5.7-6.4% INCREASED RISK FOR FUTURE DIABETES > OR = 6.5 CONSISTENT WITH DIABETES STANDARDS OF MEDICAL CARE IN DIABETES-2010 DIABETES CARE, 33(SUPP 1): S1-S61,2010 ESTIMATED AVG GLUCOSE 240 mg/dL 05/03/2024 2:56 PM BLACK OFF WORKER [facility] 05/03/2024 2:00 PM BLACK OFF WORKER Deepa Stein NP LABORATORY Final Resul t [facility] [address] [place] [address], * LIPID PANEL (01/26/2024 4:30 AM CDT) CHOLESTEROL 133 <200.0 MG/DL 01/26/2024 5:46 AM CDT [facility] TRIGLYCERIDES 122 <150 MG/DL 01/26/2024 5:46 AM CDT [facility] HDL 51 >40.0 MG/DL 01/26/2024 5:46 AM CDT [facility] LDL (CALCULATED) 58 <100 MG/DL 01/26/20 5:46 AM CDT [facility] NON HDL CHOLESTEROL 82 <130 MG/DL 01/25 5:46 AM CDT [facility] CHOL/HDL RATIO 2.6 0.0 - 4.5 01/26/2024 5:46 AM CDT [facility] VLDL CALCULATION 24 5 - 55 MG/DL 01/26/2024 5:46 AM CDT [facility] LIPID INTERPRETATION 01/26/2024 5:46 AM CDT [facility] Comment: NIH CONCENSUS REPORT RECOMMENDATIONS: ADULT CHILD LOW RISK: CHOLESTEROL <200 <170 TRIGLYCERIDE <150 --- HDL >=60 --- LDL <100 <110 BORDERLINE: CHOLESTEROL 200-239 170-199 TRIGLYCERIDE 150-199 --- HDL 40-59 --- LDL 100-159 110-129 HIGH RISK: CHOLESTEROL >=240 >=200 TRIGLYCERIDE >=200 --- HDL <40 --- LDL >=160 >=130 01/26/2024 4:30 AM CDT Kathi Royal MD LABORATORY Final Result [facility] [address] [place] [address], from Last 3 Months or Most Recently Relevant to Health Maintenance Insurance [facility] MEDICAID Advance Directives Documents on File Type Date Recorded Patient Chain Mortiser Operator Expl anation DNR (Do Not Resuscitate) [...] 6:01 PM 04/16/2024 1:44 PM Care Teams Tunnel Kiln Firer Relationship Specialty Start Date End Date Hellen Jarquin PA-C [address] [place] [address] [address] [place] [address] PCP - General PHYSICIAN PANEL SAW OPERATOR 08/18/22
--- OUTSIDE RECORDS SUMMARY | 2024-12-28 16:26 | XMS_ITS | Clinical Summary ---
[facility] Address [address] [place] [address] Care Team Providers Care Hospitality House Supervisor Name Role Phone Ngozi Oquendo M.T., MD Primary Care Provider [phone] Chidi Reis MD Unavailable [phone] Allergies Active Allergy Reactions Criticality Noted Date [...] on file Legal Sex Female 1:43 AM MILL WASHER Gender Identity Not on file Sexual Orientation [...] of Treatment Not on file Insurance MEDICARE [facility] MEDICARE SUPPLEMENT INSURANCE MEDICARE ADVANTAGE IDPA Advance Directives For more information, please contact: [phone] * Full Code (Latest Code Status on File) Date Activated Date Inactivated Comments 02/09/2023 6:04 AM Care Teams Hospitality House Supervisor Relationship Specialty Start Date End Date Ngozi Oquendo M.T., MD [address] [place] [id number] PCP - General Emergency Medicine 12/11/18 Chidi Reis MD [address] [place] [address] Internal Medicine 03/26/24
--- NOTE | 2024-12-28 17:34 | ED.NAVMDI ---
HPI - Nausea/Vomiting/Diarrhea General Chief complaint: Nausea/Vomiting/Diarrhea <Ilan Gonzalez MD - Last Filed: 12/28/24 21:42> Stated complaint: N/V today <Ilan Gonzalez MD - Last Filed: 12/28/24 21:42> Time Seen by Provider: 12/28/24 16:59 <Ilan Gonzalez MD - Last Filed: 12/28/24 21:42> History of Present Illness HPI Narrative: Patient is an 79-year-old female who presents ER with nausea and vomiting. She reports began this morning. She has continuous forceful retching. No diarrhea. No abdominal pain. She is very weak and distressed and is having trouble providing any sort of history. She is on blood thinner and chart review and she is also diabetic. Bedside blood sugar 205. Patient reports headache starting around the same time. No thunderclap. Posterior an aching. <Ilan Gonzalez MD - Last Filed: 12/28/24 21:42> Related Data Home medications: Home Medications ?Medication ?Instructions ?Recorded ?Confirmed ?Last Taken ?Type bupropion HCl 150 mg 24 hr tablet, 150 mg PO QAM 05/08/24 12/22/24 10/13/24 History extended release acetaminophen 500 mg tablet 500 mg PO Q6H PRN fever or pain 07/03/24 12/22/24 Unknown History OMEGA XL 1 cap PO DAILY 10/06/24 12/22/24 Unknown History glucagon 1 mg/0.2 mL subcutaneous 1 mg subcut ONCE PRN hypoglycemia 10/06/24 12/22/24 Unknown History auto-injector (Gvoke HypoPen 2-Pack) insulin glargine 100 unit/mL (3 50 unit subcut QPM 10/06/24 12/22/24 10/14/24 History mL) subcutaneous pen (Basaglar KwikPen U-100 Insulin) <Ilan Gonzalez MD - Last Filed: 12/28/24 21:42> Allergies/Adverse reactions: Allergies Allergy/AdvReac Type Severity Reaction Status Date / Time Penicillins Allergy Mild Swelling Verified 12/22/24 14:39 pentazocine Allergy Mild Unknown Verified 12/22/24 14:39 albuterol Allergy syncope Verified 12/22/24 14:39 aspirin Allergy Swelling Verified 12/22/24 14:39 codeine Allergy Numbness Verified 12/22/24 14:39 Sulfa (Sulfonamide Allergy Unknown Verified 12/22/24 14:39 Antibiotics) ibuprofen AdvReac GI upset Verified 12/22/24 14:58 <Ilan Gonzalez MD - Last Filed: 12/28/24 21:42> Review of Systems Review of Systems: All systems reviewed & are unremarkable except as noted in HPI and below <Ilan Gonzalez MD - Last Filed: 12/28/24 21:42> Constitutional: Constitutional: Reports no additional constitutional complaints <Ilan Gonzalez MD - Last Filed: 12/28/24 21:42> ENT: Reports system reviewed and no additional complaints, except as documented <Ilan Gonzalez MD - Last Filed: 12/28/24 21:42> Cardiovascular: Cardiovascular: Reports no additional cardiovascular complaints <Ilan Gonzalez MD - Last Filed: 12/28/24 21:42> Respiratory: Respiratory: Reports no additional respiratory complaints <Ilan Gonzalez MD - Last Filed: 12/28/24 21:42> Gastrointestinal: Gastrointestinal: Reports no additional gastrointestinal complaints <Ilan Gonzalez MD - Last Filed: 12/28/24 21:42> FOR[facility]LY [facility] Past Medical History Medical History: Medical History Hypotension Anxiety and depression TIA (transient ischemic attack) 2012 HTN (hypertension) Hypomagnesemia Screening for colon cancer Mini stroke (~2012) Chronic headaches Acid reflux Diabetes Arthritis <Ilan Gonzalez MD - Last Filed: 12/28/24 21:42> Surgical History Surgical History: Surgical History History of hand surgery trigger finger -right 3rd finger x3 History of bladder suspension procedure History of arthroscopy of left knee H/O: hysterectomy (~1979) <Ilan Gonzalez MD - Last Filed: 12/28/24 21:42> Family History Family History: Family History Father Hypertension Mother Breast cancer <Ilan Gonzalez MD - Last Filed: 12/28/24 21:42> Social History Social History: Social History Social History: Patient declined SDOH 02/12/24 Smoking status: Former smoker Tobacco type: cigarettes Additional smoking assessment comments: quit smoking about 40 years ago Alcohol intake: current Alcohol use details: OCC. Substance use: never Substance use type: does not use Do You Feel Safe in your Home?: Yes Lack of Transportation: No Lack of Food: Never True Current Housing: I Have Housing Concerned About Future Housing: No Difficulty Paying Gas/Electric Bills: No Difficulty Paying for Meds: No Currently Unemployed: No Difficulty w/ Childcare or Family Care: No Living arrangements: alone Occupation/Education: retired Gender identity (if verbalized by the patient): Female Spiritual care concerns: No Agree to blood products: Yes <Ilan Gonzalez MD - Last Filed: 12/28/24 21:42> Exam Narrative: GENERAL: Uncomfortable-appearing, well-nourished, and retching. HEAD: Normocephalic, atraumatic. ENT: Mucous membranes moist. CHEST: Clear to auscultation. No respiratory distress. HEART: Tachycardic and regular. Normal peripheral pulses. ABDOMEN: Soft, nontender, nondistended. EXTREMITIES: Normal range of motion. No edema. SKIN: Warm, dry, no rash. NEURO: Alert and oriented x3. PSYCH: Normal mood and affect. <Ilan Gonzalez MD - Last Filed: 12/28/24 21:42> Course Course Emergency Course: Abdomen is soft nontender, white count 47636. Hemoglobin mildly elevated which could be result of her being dry. Electrolytes and renal function normal. Mild elevation of blood sugar with patient is diabetic. Urinalysis felt to not indicate infection given paucity of bacteria with moderate squamous epithelial cells 11-12 white blood cells/leukocyte esterases indicating contaminant. Patient has received IV fluid as well as Zofran and Phenergan. CT of the head is pending. <Ilan Gonzalez MD - Last Filed: 12/28/24 21:42> Vital Signs Vital signs: Vital Signs Temperature 97.8 F 12/28/24 16:25 Pulse Rate 116 H 12/28/24 16:25 Respiratory Rate 16 12/28/24 16:25 Blood Pressure 169/107 H 12/28/24 16:25 Oxygen Delivery Room Air 12/28/24 16:25 Temperature 97.8 F 12/28/24 16:25 Pulse Rate 124 H 12/28/24 22:45 Respiratory Rate 24 H 12/28/24 22:45 Blood Pressure 131/84 12/28/24 22:16 Pulse Oximetry 97 12/28/24 20:17 Oxygen Delivery Room Air 12/28/24 16:25 <Ilan Gonzalez MD - Last Filed: 12/28/24 21:42> Vital Signs Temperature 97.8 F 12/28/24 16:25 Pulse Rate 116 H 12/28/24 16:25 Respiratory Rate 16 12/28/24 16:25 Blood Pressure 169/107 H 12/28/24 16:25 Oxygen Delivery Room Air 12/28/24 16:25 Temperature 97.8 F 12/28/24 16:25 Pulse Rate 124 H 12/28/24 22:45 Respiratory Rate 24 H 12/28/24 22:45 Blood Pressure 131/84 12/28/24 22:16 Pulse Oximetry 97 12/28/24 20:17 Oxygen Delivery Room Air 12/28/24 16:25 <Jann Tamez MD - Last Filed: 12/28/24 23:02> MDM - Nausea/Vomiting/Diarrhea MDM Narrative Medical decision making narrative: [place]: Patient signed out to me pending CT brain without IV contrast and p.o. challenge. CT was obtained and blood interpreted by me revealing no acute process. Patient passed her fluid challenge. Urinalysis did reveal urinary tract infection patient was informed that she will place an oral antibiotic to take for the next 5 days. She was also provided a script for Zofran to use as needed for nausea and vomiting. Instructed to follow-up with her primary care physician within the next 3-5 days and return to the ED if any new or worsening symptoms develop. She was discharged home in stable condition. <Jann Tamez MD - Last Filed: 12/28/24 23:02> Differential Diagnosis Differential diagnosis: Likely traveler's diarrhea, food poisoning and gastroenteritis <Jann Tamez MD - Last Filed: 12/28/24 23:02> Medical Records Attestation: I reviewed the patient's medical records. <Jann Tamez MD - Last Filed: 12/28/24 23:02> Lab Data Attestation: I reviewed the patient's lab results. <Jann Tamez MD - Last Filed: 12/28/24 23:02> Result diagrams: 12/28/24 17:57 12/28/24 18:42 <Ilan Gonzalez MD - Last Filed: 12/28/24 21:42> Labs: Lab Results 12/28/24 12/28/24 12/28/24 Range/Units 17:05 17:57 18:27 WBC 10.5 H (4.5-10.0) K/mm3 RBC 4.96 (4.2-5.4) M/mm3 Hgb 15.3 H (12.0-15.0) g/dL Hct 45.8 (37.0-47.0) % MCV 92.3 (80-100) fl MCH 30.8 (26-34) pg MCHC 33.4 (32-36) g/dl RDW 12.4 (11.5-14.5) % Plt Count 255 (150-375) k/mm3 MPV 9.6 (7.4-10.4) fl Immature Gran % (Auto) 0.6 H (0-0.5) % Neut % (Auto) 80.5 H (45.5-73.1) % Lymph % (Auto) 10.3 L (18.3-44.2) % [place] % (Auto) 7.9 (2.6-8.5) % Eos % (Auto) 0.3 (0-4.4) % Baso % (Auto) 0.4 (0.2-1.2) % Lymph # (Auto) 1.08 (0.9-3.2) K/mm3 [place] # (Auto) 0.8 H (0.1-0.6) K/mm3 Eos # (Auto) 0.0 (0-0.3) K/mm3 Baso # (Auto) 0.0 (0.0-0.1) K/mm3 Abs Immat Gran (auto) 0.06 H (0.00-0.031) K/mm3 Absolute Neuts (auto) 8.5 H (1.3-6.7) K/mm3 Absolute Nucleated RBC 0.000 (0.0-0.012) K/mm3 Nucleated RBC % 0.0 (0.0-0.2) % Sodium (137-145) mmol/L Potassium (3.4-5.0) mmol/L Chloride (98-107) mmol/L Carbon Dioxide (22-30) mmol/L Anion Gap (4-12) mmol/L BUN (7-17) mg/dL Creatinine (0.7-1.0) mg/dL Estim Creat Clear Calc ml/min Estimated GFR (59 - ) Glucose (65-110) mg/dL POC Capillary Glucose 205 H (65-105) mg/dl Calcium (8.4-10.2) mg/dL Total Bilirubin (0.2-1.3) mg/dL AST (14-36) U/L ALT (6-35) U/L Alkaline Phosphatase (38-126) U/L Total Protein (6.3-8.2) g/dL Albumin (3.5-5.1) g/dL Lipase (23-300) U/L Urine Color Yellow (Yellow) Urine Appearance Cloudy H (Clear) Urine pH 7.5 (5.0-9.0) Ur Specific [place] 1.014 (1.001-1.035) Urine Protein Trace (Negative) mg/dL Urine Glucose (UA) 2+ H (Negative) mg/dL Urine Ketones 1+ H (Negative) mg/dL Ur Blood (Man) Negative (Negative) Urine Nitrate Negative (Negative) Urine Bilirubin Negative (Negative) Urine Urobilinogen 0.2 (<2.0) mg/dL Add Ur Microanalysis Reviewed Leukocyte Esterase Rfl 2+ H (Negative) DEV/UL Urine RBC 0-2 (0-2) /hpf Urine WBC 11-20 H (0-3) /hpf Ur Squamous Epith Cells Moderate (Few) /hpf Urine Bacteria None seen /hpf Urine Casts 0-2 08/25/25 Range/Units 18:42 WBC (4.5-10.0) K/mm3 RBC (4.2-5.4) M/mm3 Hgb (12.0-15.0) g/dL Hct (37.0-47.0) % MCV (80-100) fl MCH (26-34) pg MCHC (32-36) g/dl RDW (11.5-14.5) % Plt Count (150-375) k/mm3 MPV (7.4-10.4) fl Immature Gran % (Auto) (0-0.5) % Neut % (Auto) (45.5-73.1) % Lymph % (Auto) (18.3-44.2) % [place] % (Auto) (2.6-8.5) % Eos % (Auto) (0-4.4) % Baso % (Auto) (0.2-1.2) % Lymph # (Auto) (0.9-3.2) K/mm3 [place] # (Auto) (0.1-0.6) K/mm3 Eos # (Auto) (0-0.3) K/mm3 Baso # (Auto) (0.0-0.1) K/mm3 Abs Immat Gran (auto) (0.00-0.031) K/mm3 Absolute Neuts (auto) (1.3-6.7) K/mm3 Absolute Nucleated RBC (0.0-0.012) K/mm3 Nucleated RBC % (0.0-0.2) % Sodium 132 L (137-145) mmol/L Potassium 4.7 (3.4-5.0) mmol/L Chloride 98 (98-107) mmol/L Carbon Dioxide 23 (22-30) mmol/L Anion Gap 11 (4-12) mmol/L BUN 15 (7-17) mg/dL Creatinine 0.78 (0.7-1.0) mg/dL Estim Creat Clear Calc 52 ml/min Estimated GFR > 60 (59 - ) Glucose 240 H (65-110) mg/dL POC Capillary Glucose (65-105) mg/dl Calcium 9.2 (8.4-10.2) mg/dL Total Bilirubin 0.9 (0.2-1.3) mg/dL AST 45 H (14-36) U/L ALT 24 (6-35) U/L Alkaline Phosphatase 108 (38-126) U/L Total Protein 8.2 (6.3-8.2) g/dL Albumin 4.3 (3.5-5.1) g/dL Lipase 91 (23-300) U/L Urine Color (Yellow) Urine Appearance (Clear) Urine pH (5.0-9.0) Ur Specific [place] (1.001-1.035) Urine Protein (Negative) mg/dL Urine Glucose (UA) (Negative) mg/dL Urine Ketones (Negative) mg/dL Ur Blood (Man) (Negative) Urine Nitrate (Negative) Urine Bilirubin (Negative) Urine Urobilinogen (<2.0) mg/dL Add Ur Microanalysis Leukocyte Esterase Rfl (Negative) DEV/UL Urine RBC (0-2) /hpf Urine WBC (0-3) /hpf Ur Squamous Epith Cells (Few) /hpf Urine Bacteria /hpf Urine Casts <Ilan Gonzalez MD - Last Filed: 12/28/24 21:42> Lab Results 12/28/24 12/28/24 12/28/24 Range/Units 17:05 17:57 18:27 WBC 10.5 H (4.5-10.0) K/mm3 RBC 4.96 (4.2-5.4) M/mm3 Hgb 15.3 H (12.0-15.0) g/dL Hct 45.8 (37.0-47.0) % MCV 92.3 (80-100) fl MCH 30.8 (26-34) pg MCHC 33.4 (32-36) g/dl RDW 12.4 (11.5-14.5) % Plt Count 255 (150-375) k/mm3 MPV 9.6 (7.4-10.4) fl Immature Gran % (Auto) 0.6 H (0-0.5) % Neut % (Auto) 80.5 H (45.5-73.1) % Lymph % (Auto) 10.3 L (18.3-44.2) % [place] % (Auto) 7.9 (2.6-8.5) % Eos % (Auto) 0.3 (0-4.4) % Baso % (Auto) 0.4 (0.2-1.2) % Lymph # (Auto) 1.08 (0.9-3.2) K/mm3 [place] # (Auto) 0.8 H (0.1-0.6) K/mm3 Eos # (Auto) 0.0 (0-0.3) K/mm3 Baso # (Auto) 0.0 (0.0-0.1) K/mm3 Abs Immat Gran (auto) 0.06 H (0.00-0.031) K/mm3 Absolute Neuts (auto) 8.5 H (1.3-6.7) K/mm3 Absolute Nucleated RBC 0.000 (0.0-0.012) K/mm3 Nucleated RBC % 0.0 (0.0-0.2) % Sodium (137-145) mmol/L Potassium (3.4-5.0) mmol/L Chloride (98-107) mmol/L Carbon Dioxide (22-30) mmol/L Anion Gap (4-12) mmol/L BUN (7-17) mg/dL Creatinine (0.7-1.0) mg/dL Estim Creat Clear Calc ml/min Estimated GFR (59 - ) Glucose (65-110) mg/dL POC Capillary Glucose 205 H (65-105) mg/dl Calcium (8.4-10.2) mg/dL Total Bilirubin (0.2-1.3) mg/dL AST (14-36) U/L ALT (6-35) U/L Alkaline Phosphatase (38-126) U/L Total Protein (6.3-8.2) g/dL Albumin (3.5-5.1) g/dL Lipase (23-300) U/L Urine Color Yellow (Yellow) Urine Appearance Cloudy H (Clear) Urine pH 7.5 (5.0-9.0) Ur Specific [place] 1.014 (1.001-1.035) Urine Protein Trace (Negative) mg/dL Urine Glucose (UA) 2+ H (Negative) mg/dL Urine Ketones 1+ H (Negative) mg/dL Ur Blood (Man) Negative (Negative) Urine Nitrate Negative (Negative) Urine Bilirubin Negative (Negative) Urine Urobilinogen 0.2 (<2.0) mg/dL Add Ur Microanalysis Reviewed Leukocyte Esterase Rfl 2+ H (Negative) DEV/UL Urine RBC 0-2 (0-2) /hpf Urine WBC 11-20 H (0-3) /hpf Ur Squamous Epith Cells Moderate (Few) /hpf Urine Bacteria None seen /hpf Urine Casts 0-2 08/25/ Range/Units 18:42 WBC (4.5-10.0) K/mm3 RBC (4.2-5.4) M/mm3 Hgb (12.0-15.0) g/dL Hct (37.0-47.0) % MCV (80-100) fl MCH (26-34) pg MCHC (32-36) g/dl RDW (11.5-14.5) % Plt Count (150-375) k/mm3 MPV (7.4-10.4) fl Immature Gran % (Auto) (0-0.5) % Neut % (Auto) (45.5-73.1) % Lymph % (Auto) (18.3-44.2) % [place] % (Auto) (2.6-8.5) % Eos % (Auto) (0-4.4) % Baso % (Auto) (0.2-1.2) % Lymph # (Auto) (0.9-3.2) K/mm3 [place] # (Auto) (0.1-0.6) K/mm3 Eos # (Auto) (0-0.3) K/mm3 Baso # (Auto) (0.0-0.1) K/mm3 Abs Immat Gran (auto) (0.00-0.031) K/mm3 Absolute Neuts (auto) (1.3-6.7) K/mm3 Absolute Nucleated RBC (0.0-0.012) K/mm3 Nucleated RBC % (0.0-0.2) % Sodium 132 L (137-145) mmol/L Potassium 4.7 (3.4-5.0) mmol/L Chloride 98 (98-107) mmol/L Carbon Dioxide 23 (22-30) mmol/L Anion Gap 11 (4-12) mmol/L BUN 15 (7-17) mg/dL Creatinine 0.78 (0.7-1.0) mg/dL Estim Creat Clear Calc 52 ml/min Estimated GFR > 60 (59 - ) Glucose 240 H (65-110) mg/dL POC Capillary Glucose (65-105) mg/dl Calcium 9.2 (8.4-10.2) mg/dL Total Bilirubin 0.9 (0.2-1.3) mg/dL AST 45 H (14-36) U/L ALT 24 (6-35) U/L Alkaline Phosphatase 108 (38-126) U/L Total Protein 8.2 (6.3-8.2) g/dL Albumin 4.3 (3.5-5.1) g/dL Lipase 91 (23-300) U/L Urine Color (Yellow) Urine Appearance (Clear) Urine pH (5.0-9.0) Ur Specific [place] (1.001-1.035) Urine Protein (Negative) mg/dL Urine Glucose (UA) (Negative) mg/dL Urine Ketones (Negative) mg/dL Ur Blood (Man) (Negative) Urine Nitrate (Negative) Urine Bilirubin (Negative) Urine Urobilinogen (<2.0) mg/dL Add Ur Microanalysis Leukocyte Esterase Rfl (Negative) DEV/UL Urine RBC (0-2) /hpf Urine WBC (0-3) /hpf Ur Squamous Epith Cells (Few) /hpf Urine Bacteria /hpf Urine Casts <Jann Tamez MD - Last Filed: 12/28/24 23:02> Discharge Plan Discharge Clinical Impression: Acute UTI, Nausea & vomiting <Ilan Gonzalez MD - Last Filed: 12/28/24 21:42> Patient Disposition: Home <Ilan Gonzalez MD - Last Filed: 12/28/24 21:42> Condition: Improved <Ilan Gonzalez MD - Last Filed: 12/28/24 21:42> Instructions: Antibiotic Form, Urinary Tract Infection in Women (DC), Acute Nausea and Vomiting (ED) <Ilan Gonzalez MD - Last Filed: 12/28/24 21:42> Additional Instructions: Please follow-up with your family doctor within the next 3-5 days. Return to ED if any new or worsening symptoms develop. Use prescribed Zofran as needed for nausea and vomiting and take the prescribed antibiotic as instructed for UTI. <Ilan Gonzalez MD - Last Filed: 12/28/24 21:42> Patient Language: Romansh <Ilan Gonzalez MD - Last Filed: 12/28/24 21:42> Prescriptions: New nitrofurantoin monohyd/m-cryst [Macrobid] 100 mg capsule 100 mg PO Q12H 5 Days Qty: 10 0RF Rx Instructions: must administer with a meal/food ondansetron 4 mg tablet,disintegrating 4 mg PO Q8H PRN (Reason: nausea and vomiting) Qty: 10 0RF No Action Vraylar 1.5 mg capsule 1.5 mg PO DAILY Qty: 30 1RF Tradjenta 5 mg tablet 5 mg PO QAM Qty: 90 1RF glucose [Dex4 Glucose] 4 gram tablet,chewable 16 g PO Q15M PRN (Reason: hypoglycemia) Qty: 60 1RF Rx Instructions: until symptoms of low blood sugar are controlled (DME) pen needle, diabetic [Chante Pen Needle] 32 gauge x 5/32 needle See Rx Instructions .Route Qty: 400 1RF Rx Instructions: Use to administer insulin 4 times a day venlafaxine 150 mg capsule,extended release 24hr 150 mg PO DAILY Qty: 90 1RF doxycycline hyclate 100 mg capsule 100 mg PO BID Qty: 14 0RF cefuroxime axetil 500 mg tablet 500 mg PO BID Qty: 14 0RF OMEGA XL 1 cap PO DAILY insulin glargine [Basaglar KwikPen U-100 Insulin] 100 unit/mL (3 mL) insulin pen 50 unit subcut QPM Gvoke HypoPen 2-Pack 1 mg/0.2 mL auto-injector 1 mg subcut ONCE PRN (Reason: hypoglycemia) Rx Instructions: may repeat once after 15 minutes if no response bupropion HCl 150 mg tablet extended release 24 hr 150 mg PO QAM acetaminophen 500 mg tablet 500 mg PO Q6H PRN (Reason: fever or pain) insulin lispro [Humalog KwikPen Insulin] 100 unit/mL insulin pen 5 unit subcut TIDWMEAL MDD 40 Qty: 30 3RF Rx Instructions: 5 units premeal + Sliding scale insulin 150-200: 1 unit 201-250: 2 units 251-300: 3 units 301-350: 4 units 351-400: 5 units >401: 6 units mupirocin 2 % ointment 1 applic topical BID Qty: 22 1RF Eliquis 5 mg tablet 5 mg PO BID Qty: 180 0RF clopidogrel 75 mg tablet 75 mg PO DAILY Qty: 90 1RF furosemide 20 mg tablet 20 mg PO QAM PRN (Reason: edema) Qty: 30 0RF (DME) FreeStyle [place] 3 [place] Misc See Rx Instructions .Route Qty: 1 0RF Rx Instructions: As directed magnesium oxide 400 mg (241.3 mg magnesium) tablet 400 mg PO DAILY Qty: 90 0RF pravastatin 40 mg tablet 40 mg PO DAILY Qty: 90 0RF <Ilan Gonzalez MD - Last Filed: 12/28/24 21:42> Follow-up/Referrals: Hellen Jarquin PA-C [Primary Care Provider, Family Practice] - 3 Days <Ilan Gonzalez MD - Last Filed: 12/28/24 21:42> Time of Disposition: 23:01 <Ilan Gonzalez MD - Last Filed: 12/28/24 21:42> 23:01 <Jann Tamez MD - Last Filed: 12/28/24 23:02>
[2024-12-28] MEDS: ONDANSETRON HCL ODT 4 MG TABLET PO (17:55)
[2024-12-28] MEDS: SODIUM CHLORIDE 0.9% IV 1,000 ML 999 ML IV CONT (17:55)
[2024-12-28 18:02] LABS: Hematocrit 45.8 % (37.0-47.0); Hemoglobin 15.3 g/dL (12.0-15.0); Immature Granulocyte Percent A 0.6 % (0-0.5); Lymphocytes Absolute Auto 1.08 K/mm3 (0.9-3.2); Mean Corpuscular HGB Conc 33.4 g/dl (32-36); Mean Corpuscular Hemoglobin 30.8 pg (26-34); Mean Corpuscular Volume 92.3 fl (80-100); Nucleated Red Blood Cells Absolute Auto 0.000 K/mm3 (0.0-0.012); Nucleated Red Blood Cells Perc 0.0 % (0.0-0.2); Platelet Count Result 255 k/mm3 (150-375); Red Blood Count 4.96 M/mm3 (4.2-5.4); White Blood Count 10.5 K/mm3 (4.5-10.0)
[2024-12-28 18:46] LABS: Add Urine Microscopic? YES; Appearance Urine Cloudy (Clear); Glucose Urine UA 2+ mg/dL (Negative); Leukocyte Esterase Ur 2+ LEU/UL (Negative); Need Manual Microscopic Reviewed; Nitrate Urine Negative (Negative); Non Pathogenic Casts 0-2; Specific Grav Ur 1.014 (1.001-1.035)
--- NOTE | 2024-12-28 19:02 | PC.NURSE ---
Family, [place], daughter [phone] Call for transport home
[2024-12-28 19:09] LABS: Alanine Aminotransferase 24 U/L (6-35); Albumin Level 4.3 g/dL (3.5-5.1); Alkaline Phosphatase 108 U/L (38-126); Anion Gap 11 mmol/L (4-12); Aspartate Amino Transferase 45 U/L (14-36); Bilirubin,Total 0.9 mg/dL (0.2-1.3); Blood Urea Nitrogen 15 mg/dL (7-17); Calcium 9.2 mg/dL (8.4-10.2); Carbon Dioxide 23 mmol/L (22-30); Chloride 98 mmol/L (98-107); Estimated CRCL calculation 52 ml/min; Estimated Glomerular Filt Rate > 60; Glucose 240 mg/dL (65-110); Lipase 91 U/L (23-300); Potassium 4.7 mmol/L (3.4-5.0); Sodium 132 mmol/L (137-145); Total Protein 8.2 g/dL (6.3-8.2)
[2024-12-28] MEDS: PROMETHAZINE HCL 25 MG/ML AMPUL 12.5 MG IV PUSH (19:40)
--- NOTE | 2024-12-28 23:44 | PC.NURSE ---
RN spoke with family, they are heading to picker tender helper patient.
== END 2024-12-29 00:02 | disposition home or self-care (01) ==
PROVIDERS: Emergency Medicine; Emergency Provider Emergency Medicine; PCP Physician Assistant Medical
DX: N39.0 Urinary tract infection, site not specified (principal); R11.2 Nausea with vomiting, unspecified; E11.9 Type 2 diabetes mellitus without complications; M19.90 Unspecified osteoarthritis, unspecified site; K21.9 Gastro-esophageal reflux disease without esophagitis; F41.9 Anxiety disorder, unspecified; F32.A Depression, unspecified; Z86.73 Personal history of transient ischemic attack (TIA), and cerebral infarction without residual deficits; Z87.891 Personal history of nicotine dependence; Z90.710 Acquired absence of both cervix and uterus; Z79.899 Other long term (current) drug therapy; Z79.84 Long term (current) use of oral hypoglycemic drugs; Z79.4 Long term (current) use of insulin; Z79.01 Long term (current) use of anticoagulants; Z79.02 Long term (current) use of antithrombotics/antiplatelets
CPT/HCPCS: 36415; 70450; 80053; 81001; 82948; 83690; 85025; 96361; 96374; 96375; 99284; A9270; J2550; J7030

== ENCOUNTER 2025-01-14 04:41 | Inpatient (IN) | payer MEDICARE, SELFPAY ==
[2025-01-14] VITALS (22 sets, daily range): BP systolic 88–148; BP diastolic 52–105; PULSE 91–121; RESP 11–26; TEMP 36.4–37.2; O2SAT 93–100; BMI 38.0
--- NOTE | ~2025-01-14 | XR_ITS ---
EXAMINATION: XR abdomen obstructive series, 01/16/2025 12:30 CDT HISTORY: nausea/vomitng COMPARISON: No comparisons available. Technique: 3 view. Findings: Bowel gas pattern unremarkable. No obstruction. No free air. No abnormal calcifications No acute osseous abnormality. Impression: 1. No acute abnormality. Reviewed, dictated and finalized at location A. Impression: 1. No acute abnormality.
--- NOTE | ~2025-01-14 | XR_ITS ---
EXAMINATION: XR chest 1V portable 01/25/2025 12:22 INDICATION: Cough TECHNIQUE:A single portable AP upright frontal image of the chest was obtained. COMPARISON: 01/19/2025 FINDINGS: Heart is mildly enlarged, unchanged. No pneumothorax. No pleural effusion. No free air under the diaphragm. No focal pulmonary consolidation. Interstitial opacities in both lungs. IMPRESSION: 1. Interstitial opacities in both lungs. Differential includes interstitial edema, interstitial pneumonia or chronic interstitial changes. If symptoms persist or worsen, consider a short-term follow-up study or additional imaging for further assessment. Reviewed, dictated and finalized at location Q. IMPRESSION: 1. Interstitial opacities in both lungs. Differential includes interstitial sheila ma, interstitial pneumonia or chronic interstitial changes. If symptoms persist or worsen, consider a short-term follow-up study or additio nal imaging for further assessment.
--- NOTE | ~2025-01-14 | XR_ITS ---
EXAMINATION: XR chest 1V portable COMPARISON: No comparisons available. HISTORY: sob FINDINGS: Moderate pulmonary venous congestion. No pneumothorax. Moderate cardiomegaly. Mediastinal and hilar contours are within normal limits. Bony thorax no acute abnormality. Miscellaneous: None Impression: CHF Reviewed, dictated and finalized at location A. Impression: CHF
--- NOTE | ~2025-01-14 | XR_ITS ---
EXAMINATION: XR chest 1V portable COMPARISON: No comparisons available. HISTORY: chest pain FINDINGS: Mild pulmonary venous congestion. No pneumothorax. Mild cardiomegaly. Mediastinal and hilar contours are within normal limits. Bony thorax no acute abnormality. Miscellaneous: None Impression: Mild CHF Reviewed, dictated and finalized at location A. Impression: Mild CHF
--- NOTE | ~2025-01-14 | CT_ITS ---
EXAMINATION: CT diagnostic chest wo con DATE: 01/27/2025 21:02 INDICATION: Persistent cough TECHNIQUE: Computed tomography (CT) of the chest was performed without intravenous contrast. The dose-length product was 450.28 mGy-cm. Automated exposure control and iterative reconstruction technique were employed. COMPARISON: CT dated 01/14/2025 FINDINGS: Interval development of patchy groundglass opacities involving the upper lobes and right lower lobe, consistent with pneumonia. Small pleural effusions. No endobronchial lesions. Heart size normal. Mild mediastinal lymphadenopathy, likely reactive. Status post cholecystectomy. Otherwise, the upper abdomen is unremarkable. Severe thoracic and upper lumbar spondylosis. IMPRESSION: 1. Patchy bilateral groundglass opacities have developed since prior study, compatible with pneumonia. 2: Small bilateral pleural effusions are new. Reviewed, dictated and finalized at location O. IMPRESSION: 1. Patchy bilateral groundglass opacities have developed since prior study, com patible with pneumonia. 2: Small bilateral pleural effusions are new.
--- NOTE | ~2025-01-14 | XR_ITS ---
EXAMINATION: XR chest 1V portable COMPARISON: No comparisons available. HISTORY: cough FINDINGS: The lungs are clear, no effusion. No pneumothorax. Heart is normal size. Mediastinal and hilar contours are within normal limits. Bony thorax no acute abnormality. Miscellaneous: None Impression: No acute cardiopulmonary abnormality. Reviewed, dictated and finalized at location A. Impression: No acute cardiopulmonary abnormality.
--- NOTE | ~2025-01-14 | CT_ITS ---
EXAMINATION: CTA chest abdomen pelvis DATE: 01/14/2025 05:41 INDICATION: Right-sided chest pain radiating to the back and criteria TECHNIQUE: Computed tomographic angiography (CTA) of the chest, abdomen, and pelvis was performed without and with 100 mL Omnipaque-350 intravenous contrast. Volume-rendered 3D-reconstructions of the aorta and large arteries were constructed by the technologist on a separate workstation. Automated exposure control and iterative reconstruction technique were employed. The dose-length product was 1136.83 mGy-cm. COMPARISON: None FINDINGS: Chest: Mild basilar and peripheral predominant septal line thickening in both lungs which could represent atelectasis or chronic interstitial lung disease. Heart size is normal. No pericardial or pleural effusion. Thoracic aorta is normal in caliber with no dissection. 1 cm likely benign left thyroid nodule. No pathologically enlarged thoracic lymphadenopathy. Abdomen and pelvis: Cholecystectomy clips the gallbladder fossa. There are a few additional surgical clips in the region of the thoracic hiatus. Liver, spleen, pancreas, bilateral adrenal glands and right kidney are normal. 7 mm left renal cyst. Moderate descending and sigmoid colon diverticulosis without adjacent comparison to suggest diverticulitis. Small bowel and appendix are normal. Bladder is normal. The uterus and left ovary are not identified and have likely been surgically resected. 1.8 cm right adnexal cyst. No free intraperitoneal gas or fluid. No pathologically enlarged abdominal or pelvic lymphadenopathy. There is calcified atherosclerosis of the normal caliber abdominal aorta and many of the other arteries. Small fat-containing umbilical hernia. Moderate to severe lumbar and lower thoracic spondylosis. IMPRESSION: 1. Normal caliber aorta with no dissection. No acute cardiopulmonary disease or acute intra-abdominal/pelvic process. 2. Diverticulosis. Reviewed, dictated and finalized at location A.
--- NOTE | ~2025-01-14 | XR_ITS ---
EXAMINATION: XR chest 1V portable DATE: 01/16/2025 05:44 INDICATION: ST elevation myocardial infarction TECHNIQUE: frontal view of the chest was obtained. COMPARISON: Chest radiograph dated 01/15/[address] dated 01/14/2025 FINDINGS: Mild streaky atelectasis at the left lower lung base. No other airspace opacities, pulmonary edema, pleural effusion or pneumothorax. Heart size within normal limits for AP technique. Cholecystectomy clips in right upper quadrant. Additional surgical clips at epigastric region possibly for hiatal hernia repair. IMPRESSION: 1. Mild streaky left basilar atelectasis. Reviewed, dictated and finalized at location A.
--- NOTE | ~2025-01-14 | XR_ITS ---
EXAM/PROCEDURE: XR chest 1V portable - 01/19/2025 23:12 CDT HISTORY: 79 years old Female with shortness of breath TECHNIQUE: AP view(s) of the chest. COMPARISON: None available. FINDINGS: LUNGS/ PLEURA: No focal consolidation. Mild perihilar bronchial wall thickening. HEART/ MEDIASTINUM: Heart appears normal in size. Atherosclerotic calcifications seen. BONES: Degenerative changes. OTHER: Visualized upper abdomen is unremarkable. IMPRESSION: No focal consolidation. Mild perihilar bronchial wall thickening, findings suggestive of respiratory bronchiolitis. Reviewed, dictated and finalized at location N. IMPRESSION: No focal consolidation. Mild perihilar bronchial wall thickening, findings sugg estive of respiratory bronchiolitis.
--- NOTE | 2025-01-14 05:00 | ECG_ITS ---
Test Date: 2025-01-14 04:56:01 Measurements Intervals [place] Rate: 114 P: 20 [place]: 187 QRS: -20 QRSD: 84 T: 105 QT: 347 QTc: 479 Interpretive Statements SINUS TACHYCARDIA MARKED ST ELEVATION, CONSIDER SEPTAL INJURY [MARKED ST ELEVATION W/O NORMALLY INFLECTED T WAVE IN V1/V2] ACUTE ANTERIOR STEMI Compared to ECG 12/22/2024 17:38:45 ST (T wave) deviation now present Sinus rhythm no longer present Myocardial infarct finding no longer present Electronically Signed On 01-14-2025 11:11:54 CDT by Omer Rios M.D.
--- NOTE | 2025-01-14 05:12 | ED.GENADULT ---
HPI - General Adult General Chief complaint: Chest Pain Stated complaint: CP/RECENT DX OF PNA Time Seen by Provider: 01/14/25 04:46 History of Present Illness HPI narrative: This is an 79-year-old female presenting ED with chief complaint of chest pain. Patient says she has been having some dull chest pain on the right side of the last 2 days. It became acutely worse tonight and woke her from sleep. The pain radiates through to her back and up to her right ear. She also complains of some numbness in her left thumb. She has been vomiting. Patient was recently seen in the ER and diagnosed with pneumonia and has been on antibiotics. She is denying fevers. She does have productive cough. She denies abdominal pain, or diarrhea. Related Data Home Medications ?Medication ?Instructions ?Recorded ?Confirmed ?Last Taken ?Type bupropion HCl 150 mg 24 hr tablet, 150 mg PO QAM 05/08/24 12/22/24 10/13/24 History extended release acetaminophen 500 mg tablet 500 mg PO Q6H PRN fever or pain 07/03/24 12/22/24 Unknown History OMEGA XL 1 cap PO DAILY 10/06/24 12/22/24 Unknown History glucagon 1 mg/0.2 mL subcutaneous 1 mg subcut ONCE PRN hypoglycemia 10/06/24 12/22/24 Unknown History auto-injector (Gvoke HypoPen 2-Pack) insulin glargine 100 unit/mL (3 50 unit subcut QPM 10/06/24 12/22/24 10/14/24 History mL) subcutaneous pen (Basaglar KwikPen U-100 Insulin) Allergies Allergy/AdvReac Type Severity Reaction Status Date / Time Penicillins Allergy Mild Swelling Verified 12/22/24 14:39 pentazocine Allergy Mild Unknown Verified 12/22/24 14:39 albuterol Allergy syncope Verified 12/22/24 14:39 aspirin Allergy Swelling Verified 12/22/24 14:39 codeine Allergy Numbness Verified 12/22/24 14:39 Sulfa (Sulfonamide Allergy Unknown Verified 12/22/24 14:39 Antibiotics) ibuprofen AdvReac GI upset Verified 12/22/24 14:58 PMFSH Past Medical History Medical History Hypotension Anxiety and depression TIA (transient ischemic attack) 2012 HTN (hypertension) Hypomagnesemia Screening for colon cancer Mini stroke (~2012) Chronic headaches Acid reflux Diabetes Arthritis Surgical History Surgical History History of hand surgery trigger finger -right 3rd finger x3 History of bladder suspension procedure History of arthroscopy of left knee H/O: hysterectomy (~1979) Family History Family History Father Hypertension Mother Breast cancer Social History Social History Social History: Patient declined SDOH 02/12/24 Smoking status: Former smoker Tobacco type: cigarettes Additional smoking assessment comments: quit smoking about 40 years ago Alcohol intake: current Alcohol use details: OCC. Substance use: never Substance use type: does not use Do You Feel Safe in your Home?: Yes Lack of Transportation: No Lack of Food: Never True Current Housing: I Have Housing Concerned About Future Housing: No Difficulty Paying Gas/Electric Bills: No Difficulty Paying for Meds: No Currently Unemployed: No Difficulty w/ Childcare or Family Care: No Living arrangements: alone Occupation/Education: retired Gender identity (if verbalized by the patient): Female Spiritual care concerns: No Agree to blood products: Yes Exam Narrative: APPEARANCE: Patient appears uncomfortable, she is clutching her chest Head: atraumatic. EYES: EOMI, NOSE: Atraumatic NECK: Trachea midline RESPIRATORY: No increased rate of breathing clear to auscultation CARDIOVASCULAR: Tachycardic, no peripheral edema ABDOMINAL: Non-distended soft nontender MUSCULOSKELETAl: No obvious deformities NEURO: Alert. Moving 4/4 extremities SKIN:: Warm, dry. Normal color PSYCHIATRIC: Normal affect Course Vital Signs Vital signs: Vital Signs Temperature 98.9 F 01/14/25 04:43 Pulse Rate 108 H 01/14/25 04:43 Respiratory Rate 13 01/14/25 04:43 Blood Pressure 148/95 H 01/14/25 04:43 Pulse Oximetry 97 01/14/25 04:43 Oxygen Delivery Room Air 01/14/25 04:43 Temperature 98.9 F 01/14/25 04:43 Pulse Rate 121 H 01/14/25 04:56 Respiratory Rate 20 01/14/25 04:56 Blood Pressure 148/95 H 01/14/25 04:56 Pulse Oximetry 98 01/14/25 04:56 Oxygen Delivery Room Air 01/14/25 04:56 Medical Decision Making MDM Narrative Medical decision making narrative: 79-year-old female presenting with right-sided chest pain radiating to her back and right ear. Pain is atypical although she is female/diabetic. Her EKG shows ST elevation in V1 V2 with reciprocal changes in 2 3 AVF. Compared to a recent EKG from December 22 2024 these are new changes. STEMI was activated and the case discussed with Dr. Mcduffie. labor relations teacher activated. Due to the atypical nature of her pain and presentation I ordered a CTA to evaluate for dissection. The official read has not returned although there is no obvious dissection on the imaging. Patient taken to the distillery laborer. Vital Signs Vital Signs: Vital Signs Temperature 98.9 F 01/14/25 04:43 Pulse Rate 108 H 01/14/25 04:43 Respiratory Rate 13 01/14/25 04:43 Blood Pressure 148/95 H 01/14/25 04:43 Pulse Oximetry 97 01/14/25 04:43 Oxygen Delivery Room Air 01/14/25 04:43 Temperature 98.9 F 01/14/25 04:43 Pulse Rate 121 H 01/14/25 04:56 Respiratory Rate 20 01/14/25 04:56 Blood Pressure 148/95 H 01/14/25 04:56 Pulse Oximetry 98 01/14/25 04:56 Oxygen Delivery Room Air 01/14/25 04:56 Lab Data 01/14/25 05:05 01/14/25 05:05 Labs: Lab Results 01/14/25 Range/Units 05:05 WBC Pending RBC Pending Hgb Pending Hct Pending MCV Pending MCH Pending MCHC Pending RDW Pending Plt Count Pending MPV Pending Immature Gran % (Auto) Pending Neut % (Auto) Pending Lymph % (Auto) Pending [place] % (Auto) Pending Eos % (Auto) Pending Baso % (Auto) Pending Lymph # (Auto) Pending [place] # (Auto) Pending Eos # (Auto) Pending Baso # (Auto) Pending Abs Immat Gran (auto) Pending Absolute Neuts (auto) Pending Absolute Nucleated RBC Pending Nucleated RBC % Pending PT Pending INR Pending APTT Pending Sodium Pending Potassium Pending Chloride Pending Carbon Dioxide Pending Anion Gap Pending BUN Pending Creatinine Pending Estim Creat Clear Calc Pending Estimated GFR Pending Glucose Pending Calcium Pending Total Bilirubin Pending AST Pending ALT Pending Alkaline Phosphatase Pending Troponin I Pending Total Protein Pending Albumin Pending Lipase Pending Discharge Plan Discharge Clinical Impression: ST elevation (STEMI) myocardial infarction Patient Disposition: Still a Patient Condition: Stable Patient Language: Uzbek Prescriptions: No Action Vraylar 1.5 mg capsule 1.5 mg PO DAILY Qty: 30 1RF glucose [Dex4 Glucose] 4 gram tablet,chewable 16 g PO Q15M PRN (Reason: hypoglycemia) Qty: 60 1RF Rx Instructions: until symptoms of low blood sugar are controlled (DME) pen needle, diabetic [Chante Pen Needle] 32 gauge x 5/32 needle See Rx Instructions .Route Qty: 400 1RF Rx Instructions: Use to administer insulin 4 times a day venlafaxine 150 mg capsule,extended release 24hr 150 mg PO DAILY Qty: 90 1RF doxycycline hyclate 100 mg capsule 100 mg PO BID Qty: 14 0RF cefuroxime axetil 500 mg tablet 500 mg PO BID Qty: 14 0RF nitrofurantoin monohyd/m-cryst [Macrobid] 100 mg capsule 100 mg PO Q12H 5 Days Qty: 10 0RF Rx Instructions: must administer with a meal/food ondansetron 4 mg tablet,disintegrating 4 mg PO Q8H PRN (Reason: nausea and vomiting) Qty: 10 0RF OMEGA XL 1 cap PO DAILY insulin glargine [Basaglar KwikPen U-100 Insulin] 100 unit/mL (3 mL) insulin pen 50 unit subcut QPM Gvoke HypoPen 2-Pack 1 mg/0.2 mL auto-injector 1 mg subcut ONCE PRN (Reason: hypoglycemia) Rx Instructions: may repeat once after 15 minutes if no response bupropion HCl 150 mg tablet extended release 24 hr 150 mg PO QAM acetaminophen 500 mg tablet 500 mg PO Q6H PRN (Reason: fever or pain) insulin lispro [Humalog KwikPen Insulin] 100 unit/mL insulin pen 5 unit subcut TIDWMEAL MDD 40 Qty: 30 3RF Rx Instructions: 5 units premeal + Sliding scale insulin 150-200: 1 unit 201-250: 2 units 251-300: 3 units 301-350: 4 units 351-400: 5 units >401: 6 units mupirocin 2 % ointment 1 applic topical BID Qty: 22 1RF Eliquis 5 mg tablet 5 mg PO BID Qty: 180 0RF clopidogrel 75 mg tablet 75 mg PO DAILY Qty: 90 1RF furosemide 20 mg tablet 20 mg PO QAM PRN (Reason: edema) Qty: 30 0RF (DME) FreeStyle James 3 [place] Misc See Rx Instructions .Route Qty: 1 0RF Rx Instructions: As directed magnesium oxide 400 mg (241.3 mg magnesium) tablet 400 mg PO DAILY Qty: 90 0RF pravastatin 40 mg tablet 40 mg PO DAILY Qty: 90 0RF Tradjenta 5 mg tablet 5 mg PO QAM Qty: 90 1RF Follow-up/Referrals: Hellen Jarquin PA-C [Primary Care Provider, Family Practice]
[2025-01-14 05:13] LABS: Hematocrit 45.1 % (37.0-47.0); Hemoglobin 15.2 g/dL (12.0-15.0); Immature Granulocyte Percent A 0.4 % (0-0.5); Immature Platelet Fraction Pct 4.2 % (0.9-11.2); Lymphocytes Absolute Auto 2.59 K/mm3 (0.9-3.2); Mean Corpuscular HGB Conc 33.7 g/dl (32-36); Mean Corpuscular Hemoglobin 30.7 pg (26-34); Mean Corpuscular Volume 91.1 fl (80-100); Nucleated Red Blood Cells Absolute Auto 0.000 K/mm3 (0.0-0.012); Nucleated Red Blood Cells Perc 0.0 % (0.0-0.2); Platelet Count Result 217 k/mm3 (150-375); Red Blood Count 4.95 M/mm3 (4.2-5.4); White Blood Count 11.2 K/mm3 (4.5-10.0)
[2025-01-14 05:22] LABS: Alanine Aminotransferase 22 U/L (6-35); Albumin Level 3.8 g/dL (3.5-5.1); Alkaline Phosphatase 110 U/L (38-126); Anion Gap 11 mmol/L (4-12); Aspartate Amino Transferase 46 U/L (14-36); Bilirubin,Total 0.4 mg/dL (0.2-1.3); Blood Urea Nitrogen 16 mg/dL (7-17); Calcium 9.0 mg/dL (8.4-10.2); Carbon Dioxide 21 mmol/L (22-30); Chloride 101 mmol/L (98-107); Estimated CRCL calculation 46 ml/min; Estimated Glomerular Filt Rate > 60; Glucose 360 mg/dL (65-110); Lipase 136 U/L (23-300); Potassium 3.9 mmol/L (3.4-5.0); Sodium 133 mmol/L (137-145); Total Protein 7.1 g/dL (6.3-8.2)
[2025-01-14 05:23] LABS: INR 0.9; Prothrombin Time 12.8 Seconds (11.1-14.7)
[2025-01-14 05:24] LABS: Partial Thromboplastin Time 22.7 Seconds (22.3-36.8)
--- OUTSIDE RECORDS SUMMARY | 2025-01-14 05:24 | XMS_ITS | Clinical Summary ---
Author Organization [facility] Care Team Providers Care Sandwich Machine Operator Name Role Phone Unavailable Primary Care Provider [...]
--- OUTSIDE RECORDS SUMMARY | 2025-01-14 05:24 | XMS_ITS | Encounter Summary ---
Author Organization [facility] Address [address] [place] [address] Care Team Providers Care Christian Science Reader Name Role Phone Hellen Jarquin PA-C Primary Care Provider [phone] Encounter Details Date Type Department Care Team (Late st Contact Info) Description 02/01/2023 Therapy Plan [facility] [address] [place], [place] [id number] Wade Altamirano MD [address] [place] [id number] Social History Tobacco Use Types Packs/Day [...] often do you attend chur ch or anabaptist services? 1 to 4 times per year [...] Recorded Patient Health Questionnaire-2 Score 0 01/25/2023 [facility] Occup[facility] - Occupational [...] in a long term (including now)? No 11/16/2022 Comments No Sex and Gender Information Value Date Recorded Sex Assigned at Female 05/31/2024 8:39 PM COSTUMING SUPERVISOR Legal Sex Female 10:55 PM COSTUMING SUPERVISOR Gender Identity Female 05/31/2024 8:39 PM COSTUMING SUPERVISOR Sexual Orientation Not on file documented as [...] 8:03 PM Mary Garcia RN Active * [place] Suicide Severity Rating Scale (Screener/Recent Self-Report) Question [...] Comment:Isolation period completed 11/15/2022 02/05/202303/25 7:41 AM COSTUMING SUPERVISOR COVID-19 Rule Out 02/04/2023 02/04/2023 02/04/2023 8:49 PM CDT COVID-19 Rule Out 02/05/2023 02/05/2023 02/05/2023 7:41 PM CDT COVID-19 Rule Out 03/24/2023 03/24/2023 03/24/2023 3:57 PM COSTUMING SUPERVISOR C. difficile 05/03/2023 05/03/2023 01/24/2024 7:56 AM CDT COVID-19 Rule Out 01/23/2024 01/23/2024 01/23/2024 6:41 PM CDT COVID-19 Rule Out 01/25/2024 01/25/2024 01/26/2024 2:22 PM CDT C. difficile 01/30/2024 01/30/2024 03/05/2024 12:0 2 PM CDT COVID-19 Rule Out 03/05/2024 03/05/2024 03/05/2024 2:05 PM CDT C. difficile 04/13/2024 04/13/2024 06/09/2024 9:04 AM COSTUMING SUPERVISOR C. difficile 06/27/2024 06/27/2024 12/24/2024 7:55 PM CDT documented as of this encounter Care Teams Christian Science Reader Relationship Specialty Start Date End Date Hellen Jarquin PA-C [address] [place] [address] [address] [place] [address] PCP - General PHYSICIAN CHECKOUT OPERATOR 08/18/22 documented as of this encounter
--- OUTSIDE RECORDS SUMMARY | 2025-01-14 05:24 | XMS_ITS | Clinical Summary ---
Author Organization [facility] Address [address] [place] [address] Care Team Providers Care Rn Neurosurgical Name Role Phone Ngozi Oquendo M.T., MD Primary Care Provider [phone] Chidi Reis MD Unavailable [phone] Allergies Active Allergy Reactions Criticality Noted Date [...] on file Legal Sex Female 1:43 AM ANIMAL CARE SERVICE WORKER Gender Identity Not on file Sexual Orientation [...] of Treatment Not on file Insurance MEDICARE [facility] MEDICARE SUPPLEMENT INSURANCE MEDICARE ADVANTAGE [facility] MEDICARE Address: [address] [address] [place] [address] IDPA Advance Directives For more information, please contact: [phone] * Full Code (Latest Code Status on File) Date Activated Date Inactivated Comments 02/09/2023 6:04 AM Care Teams Rn Neurosurgical Relationship Specialty Start Date End Date Ngozi Oquendo M.T., MD [address] [place] [address] PCP - General Emergency Medicine 12/11/18 Chidi Reis MD [address] [place] [address] Internal Medicine 03/26/24
--- OUTSIDE RECORDS SUMMARY | 2025-01-14 05:24 | XMS_ITS | Encounter Summary ---
Author Organization [facility] Address [facility] [place] [address] Care Team Providers Care Ticket Puller Name Role Phone Hellen Jarquin PA-C Primary Care Provider [phone] Encounter Details Date Type Department Care Team (Late st Contact Info) Description 03/25/2024 [place]gorod Message Enc [facility] Mult[facility] [address] [address] [facility], [facility] Provider referral Social History Tobacco Use Types [...] from your doctor or pharmacy? Never 01/30/2024 [facility] Utilities Answer Date Recorded In the [...] week 01/30/2024 How often do you attend [facility] or hindu services? More than 4 times per year 01/30/2024 Do you belong to any clubs o r organizations such as baptism groups, unions, fraternal or athletic groups, or [...] Patient Health Questionnaire-2 Score 0 02/13/2024 [facility] Occupat ional Health - Occupational [...] slept in a retirement (including now)? No 03/24/2023 Housing Stability Vital Sign Answer Hussain e Recorded In the last 12 months, was t here a time when you were not able to pay the mortgage or rent on time? No 03/05/2024 In the past 12 months, how m any times have you moved where you were living? 1 03/05/2024 At any time in the past 12 m [facility], were you homeless or living in a retirement (including now)? No 03/05/2024 Comments No Sex and Gender Information Value Date Recorded Sex Assigned at Female 05/31/2024 8:39 PM TONGER Legal Sex Female 10:55 PM TONGER Gender Identity Female 05/31/2024 8:39 PM TONGER Sexual Orientation Not on file documented as [...] and discharge planning Lifestyle No Helen Santos, SCIENCE FACULTY MEMBER documented as of this encounter Visit Diagnoses Not on filedocumented in this encounter Additional Health Concerns Infection Onset Date Last Indicated Resolved Time C. difficile 04/13/2024 04/13/2024 06/09/2024 9:04 AM TONGER C. difficile 06/27/2024 06/27/2024 12/24/2024 7:55 PM CDT documented as of this encounter Care Teams Ticket Puller Relationship Specialty Start Date End Date Hellen Jarquin PA-C [address] [place] [address] PCP - General PHYSICIAN VEGETABLE CANNER 08/18/22 documented as of this encounter
--- OUTSIDE RECORDS SUMMARY | 2025-01-14 05:24 | XMS_ITS | Clinical Summary ---
Author Organization [facility] Address [address] [place] [address] Care Team Providers Care Mobile Plant Operators Name Role Phone Hellen Jarquin PA-C Primary Care Provider [phone] Allergies Active Allergy Reactions Criticality Noted Date [...] type 06/12/2023 Hyperglycemia due to diabetes mellitus ([facility]) 03/27/2023 Type 2 diabetes mellitus wit hout complication, unspecified whether shelter insulin use ([facility]) 03/25/20232022 Diabetes mellitus due to und erlying condition with hyperglycemia ([facility]) 03/25/2023 Uncontrolled type 2 diabetes mellitus with hyperglycemia ([facility]) 03/24/2023 Clostridium difficile diarrhea 02/07/2023 C. difficile enteritis 11/15/2022 Recurrent Clostridium difficile diarrhea 023 Altered mental status 10/31/2022 Colitis 10/15/2022 Pulmonary embolism ([facility]) 09/30/2022 Physical deconditioning 09/08/2022 Diverticulitis 09/01/2022 Acute diverticulitis 08/31/2022 Knee pain, acute 12/05/2018 Hypercholesteremia Diabetes mellitus ([facility]) History of stroke Resolved Problems Problem Noted [...] from your doctor or pharmacy? Never 04/16/2024 [facility] Utilities Answer Date Recorded In the [...] week 04/16/2024 How often do you attend [facility] or jain services? More than 4 times per year 04/16/2024 Do you belong to any clubs o r organizations such as worship groups, unions, fraternal or athletic groups, or [...] Recorded Patient Health Questionnaire-2 Score 0 08/04/2024 [facility] of Occupat ional Health - Occupational Stress [...] place to sleep or slept in a half-way (including now)? No 03/24/2023 Housing Stability Vital Sign Answer Hussain e Recorded In the last 12 months, was t here a time when you were not able to pay the mortgage or rent on time? No 06/26/2024 In the past 12 months, how m any times have you moved where you were living? 0 06/26/2024 At any time in the past 12 m [facility], were you homeless or living in a half-way (including now)? No 06/26/2024 Comments No Sex and Gender Information Value Date Recorded Sex Assigned at Female 05/31/2024 8:39 PM COMMERCIAL LITIGATION PARALEGAL Legal Sex Female 10:55 PM COMMERCIAL LITIGATION PARALEGAL Gender Identity Female 05/31/2024 8:39 PM COMMERCIAL LITIGATION PARALEGAL Sexual Orientation Not on file Last Filed Vital Signs Vital Sign Reading Time Taken Comments Blood Pressure 123/79 07/01/2024 11:10 AM COMMERCIAL LITIGATION PARALEGAL Pulse 119 07/01/2024 11:10 AM COMMERCIAL LITIGATION PARALEGAL nurse notified Temperature 36.3 C (97.3 F) 07/01/2024 11:10 AM COMMERCIAL LITIGATION PARALEGAL Respiratory Rate 18 07/01/2024 11:1 0 AM COMMERCIAL LITIGATION PARALEGAL Oxygen Saturation 93% 07/01/2024 11: 10 AM COMMERCIAL LITIGATION PARALEGAL Inhaled Oxygen Concentration - - Weight 75.5 kg (166 lb 7.2 oz) 07/01/2024 4:55 AM COMMERCIAL LITIGATION PARALEGAL Height 160 cm (5' 3) 06/26/2024 3:39 PM COMMERCIAL LITIGATION PARALEGAL Body Mass Index 29.48 06/26/2024 3:39 PM COMMERCIAL LITIGATION PARALEGAL Plan of Treatment Health Maintenance Due Date Last Done Comments Kidney Health Evaluation 1944 Diabetes: Retinopathy Eye Exam 1962 Pneumococcal Vaccine: 50+ Years (1 of 2 - PCV) 07/10/1963 Zoster Vaccines (1 of 2) 1994 Annual Medicare Wellness Visit 2009 Dexa Scan (General) 2009 RSV Immunization or 60+ Years (1 - 1-dose 75+ series) 07/10/2019 Hemoglobin A1C 08/01/2024 05/03/2024, 01/05, 01/24/2024, Additional history exists COVID-19 Vaccine ( season) 2025 04/12/2021, 07/04/2020, 06/03/2020 Lipid Panel 01/25/2025 01/26/2024, 01/05, 10/14/2022 DTaP, Tdap and Td Vaccines (2 - Td or Tdap) 05/31/2034 05/31/2024 PHQ-2 (Physician [place]) Completed 08/04/2024 Meningococcal B Vaccine Aged Out [...] and discharge planning Lifestyle No Helen Santos, VOICERconsultant teacher Devices Implanted Type Area Hiv/Aids Care Nurse Device Identifier Shelf Expiration Date Model / Serial / Lot 1.5 6 Hole Plate Implanted:Qty: 1 on 06/09/2024 by Vishnu Olsen, DO at [facility] Right: Hand DEPUY SYNTHES .003 / / Description:Implanted to fou rth metacarpal 1.5 Cortex Screw 11mm Implanted:Qty: 2 on 06/09/2024 by Vishnu Olsen DO at [facility] Right: Hand DEPUY SYNTHES .111 / / Description:Implanted to fou rth metacarpal 1.5 Cortex Screw 12mm Implanted:Qty: 1 on 06/09/2024 by Vishnu Olsen DO at [facility] Right: Hand DEPUY SYNTHES .112 / / Description:Implanted to fou rth metacarpal 1.5 Cortex Screw 10mm Implanted:Qty: 1 on 06/09/2024 by Vishnu Olsen DO at [facility] Right: Hand DEPUY SYNTHES .110 / / Description:Implanted to fou rth metacarpal 1.5 Cortex Screw 9mm Implanted:Qty: 1 on 06/09/2024 by Vishnu Olsen DO at [facility] Right: Hand DEPUY SYNTHES .109 / / Description:Implanted to fou rth metacarpal 1.5 Locking Screw 14mm Implanted:Qty: 1 on 06/09/2024 by Vishnu Olsen DO at [facility] Right: Hand DEPUY SYNTHES .014 / / Description:Implanted to fou rth metacarpal Explanted Type Area Hiv/Aids Care Nurse Device Identifier Shelf Expiration Date Model / Serial / Lot 1.5 Cortex Screw 12mm Explanted:Qty: 1 on 06/09/2024 by Vishnu Olsen DO at [facility] Right: Hand DEPUY SYNTHES .112 / / Description:Fourth metacarpa l Procedures Procedure Name Priority Date/Time Associated Diagnosis Comments HEMOGLOBIN, GLYCOSYLATED STAT 05/03/2024 2:00 PM COMMERCIAL LITIGATION PARALEGAL LIPID PANEL Routine 01/26/2024 4:30 AM CDT from Last 3 Months or Most Recently Relevant to Health Maintenance Results * (ABNORMAL) HEMOGLOBIN, GLYCOSYLATED (05/03/2024 2:00 PM COMMERCIAL LITIGATION PARALEGAL) HGB A1C 10.0(H) <5.7 % 05/03/2024 2:56 PM COMMERCIAL LITIGATION PARALEGAL [facility] Comment: INCREASED RISK OF DIABETES <5.7% NON-DIABETES 5.7-6.4% INCREASED RISK FOR FUTURE DIABETES > OR = 6.5 CONSISTENT WITH DIABETES STANDARDS OF MEDICAL CARE IN DIABETES-2010 DIABETES CARE, 33(SUPP 1): S1-S61,2010 ESTIMATED AVG GLUCOSE 240 mg/dL 05/03/2024 2:56 PM COMMERCIAL LITIGATION PARALEGAL [facility] 05/03/2024 2:00 PM COMMERCIAL LITIGATION PARALEGAL Deepa Stein NP LABORATORY Final Resul t [facility] [address] [place] [address], * LIPID PANEL (01/26/2024 4:30 AM CDT) CHOLESTEROL 133 <200.0 MG/DL 01/26/2024 5:46 AM CDT [facility] TRIGLYCERIDES 122 <150 MG/DL 01/26/2024 5:46 AM CDT [facility] HDL 51 >40.0 MG/DL 01/26/2024 5:46 AM CDT [facility] LDL (CALCULATED) 58 <100 MG/DL 01/26/20 5:46 AM CDT [facility] NON HDL CHOLESTEROL 82 <130 MG/DL 01/25 5:46 AM CDT [facility] CHOL/HDL RATIO 2.6 0.0 - 4.5 01/26/2024 5:46 AM CDT [facility] VLDL CALCULATION 24 5 - 55 MG/DL 01/26/2024 5:46 AM CDT [facility] LIPID INTERPRETATION 01/26/2024 5:46 AM CDT [facility] Comment: NIH CONCENSUS REPORT RECOMMENDATIONS: ADULT CHILD LOW RISK: CHOLESTEROL <200 <170 TRIGLYCERIDE <150 --- HDL >=60 --- LDL <100 <110 BORDERLINE: CHOLESTEROL 200-239 170-199 TRIGLYCERIDE 150-199 --- HDL 40-59 --- LDL 100-159 110-129 HIGH RISK: CHOLESTEROL >=240 >=200 TRIGLYCERIDE >=200 --- HDL <40 --- LDL >=160 >=130 01/26/2024 4:30 AM CDT Kathi Royal MD LABORATORY Final Result [facility] [address] [place] [address], from Last 3 Months or Most Recently Relevant to Health Maintenance Insurance [facility] MEDICAID Advance Directives Documents on File Type Date Recorded Patient Yacht Hand Expl anation DNR (Do Not Resuscitate) Documentation [...] 6:01 PM 04/16/2024 1:44 PM Care Teams Mobile Plant Operators Relationship Specialty Start Date End Date Hellen Jarquin PA-C [address] [place] [address] [address] [place] [address] PCP - General PHYSICIAN BABY FORMULA WORKER 08/18/22
[2025-01-14] MEDS: MORPHINE SULFATE (*CRX) 4 MG/ML INJ IV PUSH (05:29)
[2025-01-14 05:37] LABS: Troponin I 0.756 ng/mL (0.000-0.034)
[2025-01-14] MEDS: ONDANSETRON INJ 4 MG/2 ML VIAL IV PUSH ×2 (05:52→11:51)
--- NOTE | 2025-01-14 05:58 | PC.NURSE ---
Pt requested this RN call her daughter. Daughter, La, notified and states she will be here within the hour.
--- NOTE | 2025-01-14 06:07 | PM.CNCAR ---
Assessment and Plan Assessment and plan (1) ST elevation (STEMI) myocardial infarction: Code(s): I21.3 - ST elevation (STEMI) myocardial infarction of unspecified site Status: Acute Plan STEMI anterior wall Hypertension controlled Diabetes mellitus type 2 Plan Emergency cardiac catheterization Admit to the ICU Aspirin ticagrelor Statin Echocardiogram History of Present Illness History of Present Illness Consult date/time: 01/14/25 06:07 Reason For Visit: CP/RECENT DX OF PNA Narrative: 79-year-old female patient presents to the hospital with acute episode of chest pain started at 3:00 a.m.. Chest pain workup from sleep with severe persistent diffuse across the chest aching and pressure like radiating to her back and her jaw. It was associated with nausea vomiting or sweating. She had prior episodes of chest pain few weeks ago it was intermittent and evaluated in the ED with negative troponin. Has history of hypertension and diabetes that has been controlled. [facility] Past Medical History Medical History Hypotension Anxiety and depression TIA (transient ischemic attack) 2012 HTN (hypertension) Hypomagnesemia Screening for colon cancer Mini stroke (~2012) Chronic headaches Acid reflux Diabetes Arthritis Surgical History Surgical History History of hand surgery trigger finger -right 3rd finger x3 History of bladder suspension procedure History of arthroscopy of left knee H/O: hysterectomy (~1979) Family History Family History Father Hypertension Mother Breast cancer Social History Social History Social History: Patient declined [facility] 02/12/24 Smoking status: Former smoker Tobacco type: cigarettes Additional smoking assessment comments: quit smoking about 40 years ago Alcohol intake: current Alcohol use details: OCC. Substance use: never Substance use type: does not use Do You Feel Safe in your Home?: Yes Lack of Transportation: No Lack of Food: Never True Current Housing: I Have Housing Concerned About Future Housing: No Difficulty Paying Gas/Electric Bills: No Difficulty Paying for Meds: No Currently Unemployed: No Difficulty w/ Childcare or Family Care: No Living arrangements: alone Occupation/Education: retired Gender identity (if verbalized by the patient): Female Spiritual care concerns: No Agree to blood products: Yes Meds Home Medications and Allergies Home Medications ?Medication ?Instructions ?Recorded ?Confirmed ?Type cariprazine 1.5 mg capsule 1.5 mg PO DAILY #30 caps 01/08/24 12/22/24 Rx (Vraylar) Held on 05/08/24. Instructions: Order Change venlafaxine 150 mg 150 mg PO DAILY #90 caps 05/01/24 12/22/24 Rx capsule,extended release 24 hr bupropion HCl 150 mg 24 hr tablet, 150 mg PO QAM 05/08/24 12/22/24 History extended release acetaminophen 500 mg tablet 500 mg PO Q6H PRN fever or pain 07/03/24 12/22/24 History glucose 4 gram chewable tablet 16 g (4 x 4 gram) PO Q15M PRN 07/22/24 12/22/24 Rx (Dex4 Glucose) hypoglycemia #60 tabs pen needle, diabetic 32 gauge x #400 ea 07/22/24 12/22/24 Rx /32 (Chante Pen Needle) insulin lispro 100 unit/mL 5 unit (0.05 mL) subcut TIDWMEAL 07/23/24 12/22/24 Rx subcutaneous pen (Humalog KwikPen #30 mL (U-100) Insulin) mupirocin 2 % topical ointment 1 applic topical BID #22 grams 08/28/24 12/22/24 Rx apixaban 5 mg tablet (Eliquis) 5 mg PO BID #180 tabs 08/31/24 12/22/24 Rx clopidogrel 75 mg tablet 75 mg PO DAILY #90 tabs 09/02/24 12/22/24 Rx furosemide 20 mg tablet 20 mg PO QAM PRN edema #30 tabs 10/02/24 12/22/24 Rx OMEGA XL 1 cap PO DAILY 10/06/24 12/22/24 History glucagon 1 mg/0.2 mL subcutaneous 1 mg subcut ONCE PRN hypoglycemia 10/06/24 12/22/24 History auto-injector (Gvoke HypoPen 2-Pack) insulin glargine 100 unit/mL (3 50 unit subcut QPM 10/06/24 12/22/24 History mL) subcutaneous pen (Basaglar KwikPen U-100 Insulin) 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,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,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 #1 ea 10/26/24 12/22/24 Rx (FreeStyle [place] [address] [place]) magnesium oxide 400 mg (241.3 mg 400 mg PO DAILY #90 tabs 11/03/24 12/22/24 Rx magnesium) tablet pravastatin 40 mg tablet 40 mg PO DAILY #90 tabs 11/09/24 12/22/24 Rx cefuroxime axetil 500 mg tablet 500 mg PO BID #14 tabs 12/22/24 Rx doxycycline hyclate 100 mg capsule 100 mg PO BID #14 caps 12/22/24 Rx nitrofurantoin 100 mg PO Q12H 5 days #10 caps 12/28/24 Rx monohydrate/macrocrystals 100 mg capsule (Macrobid) ondansetron 4 mg disintegrating 4 mg PO Q8H PRN nausea and 12/28/24 Rx tablet vomiting #10 tabs linagliptin 5 mg tablet (Tradjenta) 5 mg PO QAM #90 tabs 01/12/25 Rx Allergies Allergy/AdvReac Type Severity Reaction Status Date / Time Penicillins Allergy Mild Swelling Verified 12/22/24 14:39 pentazocine Allergy Mild Unknown Verified 12/22/24 14:39 albuterol Allergy syncope Verified 12/22/24 14:39 aspirin Allergy Swelling Verified 12/22/24 14:39 codeine Allergy Numbness Verified 12/22/24 14:39 Sulfa (Sulfonamide Allergy Unknown Verified 12/22/24 14:39 Antibiotics) ibuprofen AdvReac GI upset Verified 12/22/24 14:58 Vital Signs Vital Signs - 24 hr 01/14/25 04:43 01/14/25 04:55 01/14/25 04:56 Temperature 37.2 C Pulse Rate 108 H 108 H Respiratory Rate 13 Blood Pressure 148/95 H Pulse Oximetry 97 100 Oxygen Delivery Room Air Room Air 01/14/25 04:56 01/14/25 05:55 Temperature Pulse Rate 121 H 115 H Respiratory Rate 20 20 Blood Pressure 148/95 H 134/83 Pulse Oximetry 98 98 Oxygen Delivery Exam Const: General: comfortable and no acute distress Other: Able to lie flat HENMT: Face/Nose/Sinus: Normal nares present and no epistaxis Mouth: Yes moist mucous membranes Eyes: Sclera: sclerae normal Pupils: Equal, round and reactive pupils present Neck: Neck: supple and no JVD Carotids: no bruits Resp: Auscultation: clear to auscultation bilaterally and lung sounds not diminished Other: No chest wall tenderness Cardio: Rate: regular rate Rhythm: regular rhythm Heart sounds: no gallops, no murmurs and no rubs GI: GI Palp: Yes Soft to palpation and No Tenderness to palpation present (GI) Auscultation: normal bowel sounds Skin: General skin exam: normal color, rashes and/or lesions noted and no erythema Other: Warm Neuro: Cranial nerves: Yes Equal, round and reactive pupils present Speech: normal speech Other: No obvious focal deficit or facial asymmetry Extrem: General: no edema Other: Normal capillary refills Intact distal pulses. Results Labs and Meds 01/14/25 05:05 01/14/25 05:05 Lab results: Cardiac Enzymes 01/14/25 Range/Units 05:05 AST 46 H (14-36) U/L Troponin I 0.756 H* (0.000-0.034) ng/mL Coagulation 01/14/25 Range/Units 05:05 PT 12.8 (11.1-14.7) Seconds APTT 22.7 (22.3-36.8) Seconds CBC 01/14/25 Range/Units 05:05 WBC 11.2 H (4.5-10.0) K/mm3 RBC 4.95 (4.2-5.4) M/mm3 Hgb 15.2 H (12.0-15.0) g/dL Hct 45.1 (37.0-47.0) % Plt Count 217 (150-375) k/mm3 Lymph # (Auto) 2.59 (0.9-3.2) K/mm3 Traverse # (Auto) 1.2 H (0.1-0.6) K/mm3 Eos # (Auto) 0.1 (0-0.3) K/mm3 Baso # (Auto) 0.1 (0.0-0.1) K/mm3 Comprehensive Metabolic Panel 01/14/25 Range/Units 05:05 Sodium 133 L (137-145) mmol/L Potassium 3.9 (3.4-5.0) mmol/L Chloride 101 (98-107) mmol/L Carbon Dioxide 21 L (22-30) mmol/L BUN 16 (7-17) mg/dL Creatinine 0.88 (0.7-1.0) mg/dL Glucose 360 H (65-110) mg/dL Calcium 9.0 (8.4-10.2) mg/dL AST 46 H (14-36) U/L ALT 22 (6-35) U/L Alkaline Phosphatase 110 (38-126) U/L Total Protein 7.1 (6.3-8.2) g/dL Albumin 3.8 (3.5-5.1) g/dL Patient Weight 01/14/25 23:59 Weight 79.5 kg
--- NOTE | 2025-01-14 06:11 | WPDCARDPROC ---
Cardiac Cath Procedure Note Date of procedure:: 01/14/25 Performing physician:: Jeronimo Mcduffie MD Indication:: STEMI ant wall Procedure Procedure performed:: [facility] Coronary angiogram PCI to LAD with one JORGE culprit lesion for STEMI Sedation/Medication given:: Moderate sedation using Versed and fentanyl. Sedation was performed under my observation presents of RN, with continues monitoring consciousness level, respiratory status and hemodynamics Access site:: Left common femoral artery obtained with modified Seldinger technique Estimated blood loss:: Minimal Procedure note:: Patient prepped and draped in a sterile fashion Consent obtained from the patient Sedation was performed as explained above Access site was obtained right common femoral artery Left heart catheterization was done using a JL4 for left coronary angiogram a JR4 for right coronary angiogram Images were obtained in different views Complications none Right femoral access was closed using Angio-Seal without residual hematoma bleeding, and distal pulses were intact Findings:: Angiographic finding Left main normal coronary anatomy bifurcates into LAD left circumflex no obstructive disease LAD acute sub total occlusion mid segment of the LAD with lesion for STEMI at the site of intermediate size diagonal branch Left circumflex divides into several OM branches with no obstructive disease RCA dominant artery gives rise to RPL and PDA with no obstructive disease PCI mid LAD CLS 3.5 guide was used for current engagement The LAD stenosis was crossed using runthrough wire and the diagonal branch was crossed using a whisper wire Balloon angioplasty was done to the LAD using 2.5 x 12 balloon Stents to the LAD using jorge 3.5 x 15 was deployed successfully at 18 RYAN Diagonal branch was jailed and kissing balloon was done using 2 point on the diagonal and 3.0 and LAD Preintervention 99% occlusion FLIP 1 flow CABG in for NSTEMI bifurcation lesion Post intervention 0% stenosis FLIP 3 flow Conclusion:: Acute subtotal occlusion mid LAD culprit lesion for STEMI status post PCI with 1 drug-eluting stent Synergy 3.5 x 15 with kissing balloon to a jailed diagonal branch Assessment and Plan Assessment and plan (1) ST elevation (STEMI) myocardial infarction: Code(s): I21.3 - ST elevation (STEMI) myocardial infarction of unspecified site Status: Acute Plan Acute subtotal occlusion mid LAD completed for STEMI status post PCI with 1 JORGE Ticagrelor 90 mg b.i.d. Patient is allergic to aspirin continue with ticagrelor and consider aspirin desensitization Statin Beta-christa JOHN-inhibitor Transthoracic echocardiogram
--- NOTE | 2025-01-14 07:03 | ECG_ITS ---
Test Date: 2025-01-14 07:27:11 Measurements Intervals [place] Rate: 94 P: 41 FL: 201 QRS: 50 QRSD: 86 T: 125 QT: 366 QTc: 460 Interpretive Statements SINUS RHYTHM ACUTE ANTERIOR STEMI IMPROVING FROM PREVIOUS Electronically Signed On 01-14-2025 11:13:38 CDT by Omer Rios M.D.
--- NOTE | 2025-01-14 07:03 | ECHO_ITS ---
Patient Info Name: Ailyn Neff Age: 79 years : 1945 Gender: Female Ht: 64 in Wt: 175 lbs BSA: 1.92 m2 HR: 103 bpm BP: 134 / 83 mmHg Technical Quality: Good Exam Date: 01/14/2025 10:06 AM Patient Status: I Admit Date: 01/14/2025 Exam Type: CA echo dop color flow w con Complete two-dimensional, color flow and Doppler transthoracic echocardiogram is performed with contrast to opacify the left ventricle and to improve the deliniation of the left ventricle endocardial borders. Staff Referring Physician: Wilfredo Peralta [employer] Machine Operator: Laurence Watson Attending Provider: Jeronimo Mcduffie Contrast/Agitated Saline Contrast/Ag. Saline: Definity Amount: 2.00 ml Summary 1. The left ventricle is normal in size with severely reduced systolic function. The left ventricular ejection fraction is visually estimated to be 20-25%. The entire septum, entire anterior wall, and entire apex are severely hypokinetic. 2. The mitral valve leaflets are sclerotic. There is mild mitral regurgitation. Left Ventricle The left ventricle is normal in size with severely reduced systolic function. The left ventricular ejection fraction is visually estimated to be 20-25%. The entire septum, entire anterior wall, and entire apex are severely hypokinetic. Right Ventricle The right ventricle is normal in size and systolic function. Left Atria The left atrium is normal size. Right Atria The right atrium is normal size. Atrial Septum The atrial septum visually appears intact. Aortic Valve The aortic valve is not well visualized. There does not appear to be any hemodynamically significant aortic stenosis by echocardiographic criteria. Pulmonic Valve The pulmonic valve is not well visualized. Mitral Valve The mitral valve leaflets are sclerotic. There is mild mitral regurgitation. Tricuspid Valve The tricuspid valve is normal. There is mild tricuspid regurgitation. Pericardium/Pleural Pericardium is normal in appearance with no evidence for significant pericardial effusion. Inferior Vena Cava Normal inferior vena cava with <50% collapse upon inspiration consistent with elevated right atrial pressure, 8 mmHg. Aorta The aortic root at the level of the sinus of Valsalva measures 2.5 cm in diameter. Left Ventricular Outflow Tract Name Value Normal LVOT 2D LVOT Diameter 2.0 cm LVOT Doppler LVOT Peak Velocity 87 cm/s LVOT Peak Gradient 3 mmHg LVOT Mean Gradient 2 mmHg LVOT VTI 14 cm LVOT Stroke Volume 46 ml LVOT CO 6.3 l/min LVOT CI 3.3 l/min/m2 Pulmonic Valve Name Value Normal RVOT Doppler RVOT Peak Velocity 44 cm/s RVOT Peak Gradient 1 mmHg PV Doppler PV Peak Velocity 73 cm/s PV Peak Gradient 2 mmHg Mitral Valve Name Value Normal MV Diastolic Function MV E Peak Velocity 115 cm/s MV A Peak Velocity 37 cm/s MV E/A 3.1 MV Decel Time (PW) 115 ms MV Annular TDI MV E/e' (Septal) 9.8 MV E/e' (Lateral) 11.7 MV E/e' (Average) 10.8 Tricuspid Valve Name Value Normal TV Regurgitation Doppler TR Peak Velocity 299 cm/s TR Peak Gradient 36 mmHg Estimated PAP/RSVP RA Pressure 8 mmHg <=5 PA Systolic Pressure 44 mmHg <36 RV Systolic Pressure 44 mmHg <36 Aortic Valve Name Value Normal AV Doppler AV Peak Velocity 89 cm/s AV Peak Gradient 3 mmHg AV Area (Cont Eq Misael) 3.1 cm2 AV DI (Misael) 0.98 AV Regurgitation 2D LVOT Area 3.2 cm2 Ventricles Name Value Normal LV Dimensions 2D/MM IVS Diastolic Thickness (2D) 1.0 cm 0.6-1.0 LVID Diastole (2D) 4.4 cm 3.8-5.2 LVIW Diastolic Thickness (2D) 1.3 cm 0.6-0.9 LVID Systole (2D) 4.0 cm 2.2-3.5 LVOT Diameter 2.0 cm LV Mass (2D Cubed) 176.59 g 67.00-162.00 LV Mass Index (2D Cubed) 92 g/m2 43-95 Relative Wall Thickness (2D) 0.61 <=0.42 LV Fractional Shortening/Ejection Fraction 2D/MM LV Fractional Shortening (2D) 9 % 27-45 LV EF (2D Teichholz) 20 % LV Diastolic Volume (4C MOD) 119 ml LV EF (4C MOD) 17 % LV Diastolic Volume (2C MOD) 113 ml LV EF (2C MOD) 19 % LV Diastolic Volume (BP MOD) 117 ml 46-106 LV Diastolic Volume Index (BP MOD) 61 ml/m2 29-61 LV Systolic Volume (BP MOD) 100 ml 14-42 LV Systolic Volume Index (BP MOD) 52 ml/m2 8-24 LV EF (BP MOD) 15 % 54-74 LV Diastolic Length (4C) 8.4 cm LV Systolic Length (4C) 8.2 cm LV Stroke Volume (4C MOD) 21 ml Atria Name Value Normal LA Dimensions LA Volume (4C A-L) 55 ml LA Volume (BP A-L) 55 ml RA Dimensions RA Systolic Major [place] Length (4C) 4.1 cm 2.2-2.8 RA Area (4C) 13.6 cm2 <=18.0 Report Signatures
[2025-01-14 08:43] LABS: Hematocrit 44.0 % (37.0-47.0); Hemoglobin 14.5 g/dL (12.0-15.0); Immature Granulocyte Percent A 0.5 % (0-0.5); Lymphocytes Absolute Auto 2.00 K/mm3 (0.9-3.2); Mean Corpuscular HGB Conc 33.0 g/dl (32-36); Mean Corpuscular Hemoglobin 30.9 pg (26-34); Mean Corpuscular Volume 93.6 fl (80-100); Nucleated Red Blood Cells Absolute Auto 0.000 K/mm3 (0.0-0.012); Nucleated Red Blood Cells Perc 0.0 % (0.0-0.2); Platelet Count Result 221 k/mm3 (150-375); Red Blood Count 4.70 M/mm3 (4.2-5.4); White Blood Count 12.6 K/mm3 (4.5-10.0)
[2025-01-14 08:54] LABS: INR 1.1; Prothrombin Time 14.8 Seconds (11.1-14.7)
[2025-01-14 09:00] LABS: Cholesterol 168 mg/dL (0-200); HDL Direct 48 mg/dL; Triglycerides 83 mg/dL (<150)
[2025-01-14 09:11] LABS: Troponin I > 80.000 ng/mL (0.000-0.034)
--- NOTE | 2025-01-14 09:12 | ADMGEN ---
This patient, Ailyn Neff, was admitted to Intensive Care Unit-10. Patient/family oriented to hospital policies and general routines including ID bracelet, bed and alarms, visiting hours, pain management, procedures, bathroom and other care routines, personal items, smoking policy, room service/diet, and visiting hours. Information on how to activate the Rapid Response Team has been discussed. Patient/Family are encouraged to report perceived risks to care and to ask questions if they do not understand what they are told or what they should do.
[2025-01-14] MEDS: ROSUVASTATIN 20 MG TABLET PO (09:21)
[2025-01-14] MEDS: LOSARTAN POTASSIUM 12.5 MG TABLET PO (09:22)
[2025-01-14] MEDS: SODIUM CHLORIDE 0.9% IV 1,000 ML 125 ML IV CONT (09:26)
[2025-01-14 09:29] LABS: Partial Thromboplastin Time > 200.0 Seconds (22.3-36.8)
[2025-01-14 11:23] LABS: MRSA (PCR) NOT DETECTED (NOT DETECTE)
[2025-01-14] MEDS: PERFLUTREN LIPID MICROSPHERES 1.5 ML VIAL DILUTED TO 10 ML TOTAL VOLUME IV PUSH (11:52)
[2025-01-14] MEDS: INSULIN ASPART (*BKC) 100 UNITS/ML SUB-Q ×3 (11:54→20:24)
--- NOTE | 2025-01-14 14:15 | WPDCNINT ---
Assessment and Plan Assessment and plan (1) ST elevation (STEMI) myocardial infarction: Code(s): I21.3 - ST elevation (STEMI) myocardial infarction of unspecified site Status: Acute Assessment and Plan: Patient presented with substernal chest pain radiating to back and left ER. She also felt some numbness in the left thumb -EKG showed ST elevation in V1 and V2 with reciprocal changes in leads 2, 3 and AVF. STEMI team was alerted, patient was taking the cardiac catheterization lab which she was found to have a 99% occlusion of mid LAD. - PCI with JORGE x1 to mid LAD with FLIP 3 flow post intervention in 0% stenosis. -patient is allergy to aspirin -started on ticagrelor, carvedilol, lisinopril, rosuvastatin -cardiology following the patient (2) HTN (hypertension): Code(s): I10 - Essential (primary) hypertension Status: Acute Assessment and Plan: Continue carvedilol and lisinopril (3) Hyperlipidemia LDL goal <70: Code(s): E78.5 - Hyperlipidemia, unspecified Status: Acute Assessment and Plan: Continue rosuvastatin (4) Diabetes: Qualifiers: Diabetes mellitus type: type 2 Diabetes mellitus tank terminal gauger insulin use: with tank terminal gauger use Diabetes mellitus complication status: without complication Qualified Code(s): E11.9 - Type 2 diabetes mellitus without complications; Z79.4 - assisted (current) use of insulin Code(s): E11.9 - Type 2 diabetes mellitus without complications Status: Acute Assessment and Plan: Will start her home linagliptin and Lantus -continue Accu-Cheks and sliding scale insulin (5) Anxiety and depression: Code(s): F41.9 - Anxiety disorder, unspecified; F32.A - Depression, unspecified Status: Acute Assessment and Plan: Restart prior to admission venlafaxine Plan DVT prophylaxis: Status post cardiac catheterization Stress ulcer prophylaxis: Not indicated Nutrition: Heart healthy and diabetic carb consistent diet Code Status: Full code Critical Care Time Spent: 47 minutes Due to a high probability of clinically significant, life threatening deterioration, the patient required my highest level of preparedness to intervene emergently and I personally spent this critical care time directly and personally managing the patient. This critical care time included obtaining a history; examining the patient; pulse oximetry; ordering and review of studies; arranging urgent treatment with development of a management plan; evaluation of patient's response to treatment; frequent reassessment; and discussions with other providers. It was exclusive of separately billable procedures and treating other patients and teaching time. Please see Assessment and Plan section and the rest of the note for further information on patient assessment and treatment This dictation may have been done utilizing a voice recognition system. Attempts have been made to correct errors. However, there may be uncorrected grammatical, spelling, and recognitions errors present. Child And Family Services Worker Consult Note Consult date: 01/14/25 Reason for consult: ST-elevation MO status PTCA/PCI with JORGE x1 mid LAD HPI: Ailyn Neff is a 79 year old female with past medical history of anxiety, depression, TIA, hypertension, acid reflux, diabetes and arthritis presented the ED on 01/14/2025 in the early hours with complains of chest pain, substernal, radiated to her back and right ER she also felt some numbness in the left thumb. She started stated that they she has been having some dull pain for the last 2 days, also having some cough and nasal congestion for the last week. The chest pain woke her up from her sleep, and she called EMS and came to the ED where she was found to have a STEMI on the EKG with ST elevations in lead V1 and V2 with reciprocal changes in leads 2, 3 and AVF. STEMI team was alerted, patient went to the cardiac label drier patient had a PTCA/PCI with JORGE x1 to mid LAD which was 99% occluded. Patient was transferred to the ICU for further management Patient was seen and examined in the ICU upon arrival, is awake, alert, complains of mild chest discomfort most likely from her coughing. Patient states she is feels much better after the procedure. Did receive some Coreg and lisinopril wean dropped her blood pressures transiently. Currently hemodynamically stable, on room air with adequate O2 sat Review of Systems Review of Systems: All systems reviewed & are unremarkable except as noted in HPI and below PMFSH Past Medical History Medical History Hypotension Anxiety and depression TIA (transient ischemic attack) 2012 HTN (hypertension) Hypomagnesemia Screening for colon cancer Mini stroke (~2012) Chronic headaches Acid reflux Diabetes Arthritis Surgical History Surgical History History of hand surgery trigger finger -right 3rd finger x3 History of bladder suspension procedure History of arthroscopy of left knee H/O: hysterectomy (~1979) Family History Family History Father Hypertension Mother Breast cancer Social History Social History Social History: Patient declined SDOH 02/12/24 Smoking status: Former smoker Tobacco type: cigarettes Additional smoking assessment comments: quit smoking about 40 years ago Alcohol intake: current Drinks per week: 1 Alcohol use details: OCC. Substance use: never Substance use type: does not use Do You Feel Safe in your Home?: Yes Lack of Transportation: No Lack of Food: Never True Current Housing: I Have Housing Concerned About Future Housing: No Difficulty Paying Gas/Electric Bills: No Difficulty Paying for Meds: No Currently Unemployed: No Education: High School Diploma/GED Difficulty w/ Childcare or Family Care: No Living arrangements: alone Occupation/Education: retired Gender identity (if verbalized by the patient): Female Spiritual care concerns: No Agree to blood products: Yes Meds Home Medications and Allergies Home Medications ?Medication ?Instructions ?Recorded ?Confirmed ?Type venlafaxine 150 mg 150 mg PO DAILY #90 caps 05/01/24 01/14/25 Rx capsule,extended release 24 hr acetaminophen 500 mg tablet 500 mg PO Q6H PRN fever or pain 07/03/24 01/14/25 History glucose 4 gram chewable tablet 16 g (4 x 4 gram) PO Q15M PRN 07/22/24 01/14/25 Rx (Dex4 Glucose) hypoglycemia #60 tabs pen needle, diabetic 32 gauge x #400 ea 07/22/24 01/14/25 Rx 5/32 (Chante Pen Needle) clopidogrel 75 mg tablet 75 mg PO DAILY #90 tabs 09/02/24 01/14/25 Rx OMEGA XL 1 cap PO DAILY 10/06/24 01/14/25 History glucagon 1 mg/0.2 mL subcutaneous 1 mg subcut ONCE PRN hypoglycemia 10/06/24 01/14/25 History auto-injector (Gvoke HypoPen 2-Pack) insulin glargine 100 unit/mL (3 50 unit subcut QPM 10/06/24 01/14/25 History mL) subcutaneous pen (Basaglar KwikPen U-100 Insulin) 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,milk receiver tank truck,cont #1 ea 10/26/24 01/14/25 Rx (FreeStyle [place] 3 [place]) magnesium oxide 400 mg (241.3 mg 400 mg PO DAILY #90 tabs 11/03/24 01/14/25 Rx magnesium) tablet pravastatin 40 mg tablet 40 mg PO DAILY #90 tabs 11/09/24 01/14/25 Rx ondansetron 4 mg disintegrating 4 mg PO Q8H PRN nausea and 12/28/24 01/14/25 Rx tablet vomiting #10 tabs linagliptin 5 mg tablet (Tradjenta) 5 mg PO QAM #90 tabs 01/12/25 01/14/25 Rx apixaban 5 mg tablet (Eliquis) 5 mg PO .q12 01/14/25 01/14/25 History Allergies Allergy/AdvReac Type Severity Reaction Status Date / Time Penicillins Allergy Mild Swelling Verified 12/22/24 14:39 pentazocine Allergy Mild Unknown Verified 12/22/24 14:39 albuterol Allergy syncope Verified 12/22/24 14:39 aspirin Allergy Swelling Verified 12/22/24 14:39 codeine Allergy Numbness Verified 12/22/24 14:39 Sulfa (Sulfonamide Allergy Unknown Verified 12/22/24 14:39 Antibiotics) ibuprofen AdvReac GI upset Verified 12/22/24 14:58 Vital Signs Vital Signs - 24 hr 01/14/25 04:43 01/14/25 04:55 01/14/25 04:56 Temperature 98.9 F Pulse Rate 108 H 108 H Respiratory Rate 13 Blood Pressure 148/95 H Pulse Oximetry 97 100 Oxygen Delivery Room Air Room Air 01/14/25 04:56 01/14/25 05:55 01/14/25 08:00 Temperature Pulse Rate 121 H 115 H 97 Respiratory Rate 20 20 16 Blood Pressure 148/95 H 134/83 104/69 Pulse Oximetry 98 98 97 Oxygen Delivery 01/14/25 08:00 01/14/25 08:15 01/14/25 08:30 Temperature Pulse Rate 100 105 H 104 H Respiratory Rate 18 18 Blood Pressure 97/69 L 112/76 Pulse Oximetry 98 94 Oxygen Delivery 01/14/25 08:45 09/11/25 09:00 01/14/25 09:15 Temperature Pulse Rate 100 105 H 103 H Respiratory Rate 18 20 20 Blood Pressure 138/84 143/105 H 99/74 L Pulse Oximetry 95 100 98 Oxygen Delivery 01/14/25 09:21 01/14/25 09:30 01/14/25 10:00 Temperature Pulse Rate 108 H 101 H 97 Respiratory Rate 16 15 Blood Pressure 97/69 L 88/65 L Pulse Oximetry 94 98 Oxygen Delivery 01/14/25 10:00 01/14/25 11:47 01/14/25 12:00 Temperature 97.9 F Pulse Rate 97 96 94 Respiratory Rate 11 L Blood Pressure 101/71 Pulse Oximetry 93 Oxygen Delivery 01/14/25 12:00 01/14/25 14:00 01/14/25 14:00 Temperature 97.9 F Pulse Rate 96 95 96 Respiratory Rate 11 L 22 H Blood Pressure 101/71 98/64 L Pulse Oximetry 93 97 Oxygen Delivery Exam Narrative: General: Pleasant elderly female in no acute distress HEENT:? Pupils equal and reactive, sclera is clear, moist oral mucosa Neck:? Supple Respiratory:? Coarse breath sounds bilaterally, decreased at bases, adequate air entry otherwise, no wheezing Cardiac:? S1-S2 normal, regular rate and rhythm Abdomen:? Soft, nontender, nondistended, normoactive bowel sound Extremities:? Right groin site without any evidence of ecchymosis or hematoma. Bilateral pedal pulses are palpable. Trace bilateral lower extremity edema Neuro:? Patient is awake, alert, oriented, nonfocal, answers to questions appropriately and follows simple commands in all extremities Skin:? No skin lesions not Psych:? Normal mentation and affect Results Labs 01/14/25 08:33 01/14/25 05:05 Labs: Short CBC 01/14/25 01/14/25 Range/Units 05:05 08:33 WBC 11.2 H 12.6 H (4.5-10.0) K/mm3 Hgb 15.2 H 14.5 (12.0-15.0) g/dL Hct 45.1 44.0 (37.0-47.0) % Plt Count 217 221 (150-375) k/mm3 BMP 01/14/25 05:05 Sodium 133 L Potassium 3.9 Chloride 101 Carbon Dioxide 21 L BUN 16 Creatinine 0.88 Glucose 360 H Calcium 9.0 Cardiac Enzymes 01/14/25 01/14/25 Range/Units 05:05 08:33 Troponin I 0.756 H* > 80.000 H* D (0.000-0.034) ng/mL Liver Function 01/14/25 Range/Units 05:05 Total Bilirubin 0.4 (0.2-1.3) mg/dL AST 46 H (14-36) U/L ALT 22 (6-35) U/L Alkaline Phosphatase 110 (38-126) U/L Albumin 3.8 (3.5-5.1) g/dL Quality VTE Prophylaxis VTE prophylaxis: mechanical ordered Hospitalist MIPS Advance Care Plan I have confirmed that the patient's Advanced Care Plan is present, code status is documented, or surrogate decision maker is listed in patient medical record.: Yes Medication Reconciliation I have utilized all available resources to obtain, update and review the patients current medications (includes all prescriptions, OTC, herbals, cannabis, and nutritional supplements).: Yes
[2025-01-14] MEDS: BENZONATATE 100 MG CAPSULE PO (16:52)
[2025-01-14] MEDS: TICAGRELOR 90 MG TABLET PO (18:11)
[2025-01-14] MEDS: guaiFENesin 12 HR 600 MG TABCR PO (20:23)
[2025-01-14] MEDS: INSULIN GLARGINE (*BKC) 100 UNITS/ML 30 UNITS SUB-Q (20:24)
[2025-01-15] VITALS (24 sets, daily range): BP systolic 73–110; BP diastolic 43–85; PULSE 86–111; RESP 12–28; TEMP 36.6–36.8; O2SAT 92–98
[2025-01-15 03:44] LABS: Hematocrit 46.9 % (37.0-47.0); Hemoglobin 15.1 g/dL (12.0-15.0); Immature Granulocyte Percent A 0.6 % (0-0.5); Lymphocytes Absolute Auto 2.20 K/mm3 (0.9-3.2); Mean Corpuscular HGB Conc 32.2 g/dl (32-36); Mean Corpuscular Hemoglobin 30.8 pg (26-34); Mean Corpuscular Volume 95.7 fl (80-100); Nucleated Red Blood Cells Absolute Auto 0.000 K/mm3 (0.0-0.012); Nucleated Red Blood Cells Perc 0.0 % (0.0-0.2); Platelet Count Result 208 k/mm3 (150-375); Red Blood Count 4.90 M/mm3 (4.2-5.4); White Blood Count 14.3 K/mm3 (4.5-10.0)
[2025-01-15 04:04] LABS: Alanine Aminotransferase 54 U/L (6-35); Albumin Level 3.5 g/dL (3.5-5.1); Alkaline Phosphatase 92 U/L (38-126); Anion Gap 4 mmol/L (4-12); Aspartate Amino Transferase 319 U/L (14-36); Bilirubin,Total 1.2 mg/dL (0.2-1.3); Blood Urea Nitrogen 14 mg/dL (7-17); Calcium 9.0 mg/dL (8.4-10.2); Carbon Dioxide 29 mmol/L (22-30); Chloride 103 mmol/L (98-107); Estimated CRCL calculation 49 ml/min; Estimated Glomerular Filt Rate 59; Glucose 163 mg/dL (65-110); Magnesium 1.7 mg/dL (1.6-2.3); Sodium 136 mmol/L (137-145); Total Protein 6.7 g/dL (6.3-8.2)
[2025-01-15 04:11] LABS: Potassium 4.0 mmol/L (3.4-5.0)
--- NOTE | 2025-01-15 07:00 | ECG_ITS ---
Test Date: 2025-01-15 12:04:03 Measurements Intervals [place] Rate: 97 P: 29 NE: 176 QRS: 3 QRSD: 97 T: 138 QT: 381 QTc: 485 Interpretive Statements SINUS RHYTHM ANTEROSEPTAL MYOCARDIAL INFARCTION [40+ ms Q WAVE IN V1-V4], PROBABLY RECENT ACUTE MT WARNING: DATA QUALITY MAY AFFECT INTERPRETATION Compared to ECG 01/14/2025 07:27:11 NO SIGNIFICANT CHANGE COMPARED TO PREVIOUS Electronically Signed On 01-15-2025 15:43:15 CDT by Omer Rios M.D.
[2025-01-15] MEDS: guaiFENesin 12 HR 600 MG TABCR PO ×2 (08:32→21:08)
[2025-01-15] MEDS: BENZONATATE 100 MG CAPSULE PO ×3 (08:32→18:15)
[2025-01-15] MEDS: TICAGRELOR 90 MG TABLET PO (08:33)
--- NOTE | 2025-01-15 08:48 | WPDINTPN ---
Progress Note: A&P Assessment and Plan (1) ST elevation (STEMI) myocardial infarction: Code(s): I21.3 - ST elevation (STEMI) myocardial infarction of unspecified site Status: Acute Assessment and Plan: Patient presented with substernal chest pain radiating to back and left ER. She also felt some numbness in the left thumb -EKG showed ST elevation in V1 and V2 with reciprocal changes in leads 2, 3 and AVF. STEMI team was alerted, patient was taking the cardiac catheterization lab which she was found to have a 99% occlusion of mid LAD. - PCI with JORGE x1 to mid LAD with FLIP 3 flow post intervention in 0% stenosis. -patient is allergy to aspirin -continue ticagrelor, rosuvastatin -patient was started on Coreg and losartan, blood pressures are soft, will decrease the dose of Coreg and hold her losartan and discuss with Cardiology -cardiology following the patient (2) HTN (hypertension): Code(s): I10 - Essential (primary) hypertension Status: Acute Assessment and Plan: Continue carvedilol, hold her losartan (3) Hyperlipidemia LDL goal <70: Code(s): E78.5 - Hyperlipidemia, unspecified Status: Acute Assessment and Plan: Continue rosuvastatin (4) Diabetes: Qualifiers: Diabetes mellitus complication status: without complication Diabetes mellitus intermediate insulin use: with exterminator termite use Diabetes mellitus type: type 2 Qualified Code(s): E11.9 - Type 2 diabetes mellitus without complications; Z79.4 - exterminator termite (current) use of insulin Code(s): E11.9 - Type 2 diabetes mellitus without complications Status: Acute Assessment and Plan: Will start her home linagliptin and Lantus -continue Accu-Cheks and sliding scale insulin -continue sitagliptin, increase Lantus (5) Anxiety and depression: Code(s): F41.9 - Anxiety disorder, unspecified; F32.A - Depression, unspecified Status: Acute Assessment and Plan: Continue Venlafaxine (6) Cough: Code(s): R05.9 - Cough, unspecified Status: Acute Assessment and Plan: Could be multifactorial, postnasal drip, bronchitis, CHF -01/15: chest x-ray obtained was clear -continue Tessalon Perles and guaifenesin -will add loratadine patient has some nasal congestion Plan DVT prophylaxis: Status post cardiac catheterization Stress ulcer prophylaxis: Not indicated Nutrition: Heart healthy and diabetic carb consistent diet Code Status: Full code Critical Care Time Spent: 31 minutes Patient may transfer to IMU or telemetry floor Due to a high probability of clinically significant, life threatening deterioration, the patient required my highest level of preparedness to intervene emergently and I personally spent this critical care time directly and personally managing the patient. This critical care time included obtaining a history; examining the patient; pulse oximetry; ordering and review of studies; arranging urgent treatment with development of a management plan; evaluation of patient's response to treatment; frequent reassessment; and discussions with other providers. It was exclusive of separately billable procedures and treating other patients and teaching time. Please see Assessment and Plan section and the rest of the note for further information on patient assessment and treatment This dictation may have been done utilizing a voice recognition system. Attempts have been made to correct errors. However, there may be uncorrected grammatical, spelling, and recognitions errors present. Subjective Date/time seen: 01/15/25 08:48 Interval history: Reason for consult: ST-elevation VA status PTCA/PCI with JORGE x1 mid LAD 01/15/2025: Patient seen and examined the ICU, is awake, alert, oriented. Denies any chest pain at this time, complains of cough some red has been causing some chest discomfort, he has states that the Tessalon Perles help with her cough. Blood pressures have been on the lower side, urine output has been adequate, afebrile. On 2 L nasal cannula with adequate O2 sats Review of Systems Review of Systems: All systems reviewed & are unremarkable except as noted in HPI and below Exam Narrative: General: Pleasant elderly female in no acute distress HEENT:? Pupils equal and reactive, sclera is clear, moist oral mucosa Neck:? Supple Respiratory:? Coarse breath sounds bilaterally, decreased at bases, adequate air entry otherwise, no wheezing Cardiac:? S1-S2 normal, regular rate and rhythm Abdomen:? Soft, nontender, nondistended, normoactive bowel sound Extremities:? Right groin site without any evidence of ecchymosis or hematoma. Bilateral pedal pulses are palpable. Trace bilateral lower extremity edema Neuro:? Patient is awake, alert, oriented, nonfocal, answers to questions appropriately and follows simple commands in all extremities Skin:? No skin lesions not Psych:? Normal mentation and affect Objective Data Vital Signs Vital Signs: Vital Signs - 24 hr 01/14/25 09:00 01/14/25 09:15 01/14/25 09:21 Temperature Pulse Rate 105 H 103 H 108 H Respiratory Rate 20 20 Blood Pressure 143/105 H 99/74 L Pulse Oximetry 100 98 Oxygen Delivery Oxygen Flow Rate 01/14/25 09:30 01/14/25 10:00 01/14/25 10:00 Temperature Pulse Rate 101 H 97 97 Respiratory Rate 16 15 Blood Pressure 97/69 L 88/65 L Pulse Oximetry 94 98 Oxygen Delivery Oxygen Flow Rate 01/14/25 11:47 01/14/25 12:00 01/14/25 12:00 Temperature 97.9 F 97.9 F Pulse Rate 96 94 96 Respiratory Rate 11 L 11 L Blood Pressure 101/71 101/71 Pulse Oximetry 93 93 Oxygen Delivery Oxygen Flow Rate 01/14/25 12:47 01/14/25 14:00 01/14/25 14:00 Temperature Pulse Rate 98 95 96 Respiratory Rate 15 22 H Blood Pressure 96/64 L 98/64 L Pulse Oximetry 96 97 Oxygen Delivery Oxygen Flow Rate 01/14/25 16:00 01/14/25 16:00 01/14/25 18:00 Temperature 97.6 F Pulse Rate 105 H 110 H 94 Respiratory Rate 15 Blood Pressure 112/61 Pulse Oximetry 99 Oxygen Delivery Oxygen Flow Rate 01/14/25 18:00 01/14/25 20:00 01/14/25 20:00 Temperature 97.8 F 98.3 F Pulse Rate 94 97 Respiratory Rate 16 25 H Blood Pressure 96/61 L 101/52 L Pulse Oximetry 97 96 100 Oxygen Delivery Nasal Cannula Oxygen Flow Rate 2 01/14/25 20:00 01/14/25 21:03 01/14/25 22:00 Temperature Pulse Rate 96 91 92 Respiratory Rate 26 H Blood Pressure 92/63 L Pulse Oximetry 100 Oxygen Delivery Oxygen Flow Rate 01/14/25 22:00 01/15/25 00:00 01/15/25 00:00 Temperature 98.3 F Pulse Rate 92 99 102 H Respiratory Rate 28 H Blood Pressure 102/65 Pulse Oximetry 95 Oxygen Delivery Oxygen Flow Rate 01/15/25 00:00 01/15/25 02:00 01/15/25 02:00 Temperature Pulse Rate 100 100 Respiratory Rate 22 H Blood Pressure 110/67 Pulse Oximetry 97 94 Oxygen Delivery Nasal Cannula Oxygen Flow Rate 2 01/15/25 04:00 01/15/25 04:00 01/15/25 04:00 Temperature 98 F Pulse Rate 97 100 Respiratory Rate 13 Blood Pressure 88/54 L Pulse Oximetry 98 98 Oxygen Delivery Nasal Cannula Oxygen Flow Rate 2 01/15/25 06:00 01/15/25 06:00 Temperature 98 F Pulse Rate 104 H 104 H Respiratory Rate 18 Blood Pressure 87/51 L Pulse Oximetry 98 Oxygen Delivery Oxygen Flow Rate Intake/Output Intake/Output: Intake & Output 01/12/25 01/13/25 01/14/25 01/15/25 23:59 23:59 23:59 23:59 Intake Total 1183.3 Output Total 750 Balance 1183.3 -750 Meds/Results Medications: Active Medications Generic Name Dose Route Start Last Admin Trade Name Freq PRN Reason Stop Dose Admin Benzonatate 100 mg 01/14/25 13:00 01/15/25 08:32 Benzonatate 100 Mg Capsule PO 100 mg TID DOYLE Administration Dextrose 12.5 gm 01/14/25 08:08 Dextrose 50% 25 Gm/50 Ml Syringe IV PUSH PRN PRN Hypoglycemia Protocol Glucagon 1 mg 01/14/25 08:08 Glucagon For Inj 1 Mg Vial IM PRN PRN Hypoglycemia Protocol Glucose 15 gm 01/14/25 08:08 Glucose Oral Gel 15 Gm Of Glucse In 37.5 Gm Tube PO PRN PRN Hypoglycemia Protocol Guaifenesin 600 mg 01/14/25 21:00 01/15/25 08:32 Guaifenesin 12 Hr 600 Mg Tabcr PO 600 mg Q12HR DOYLE Administration Guaifenesin/Dextromethorphan 10 ml 01/14/25 09:03 Guaifenesin/Dextromethorphan 10 Ml Udc PO Q4H PRN Cough Dextrose 1,000 mls @ 100 mls/hr 01/14/25 08:08 Dextrose 5% 1,000 Ml IVPB PRN PRN Hypoglycemia Protocol Insulin Aspart 2 - 4 units 01/14/25 21:00 01/14/25 20:24 Insulin Aspart (*Bkc) 100 Units/Ml SUB-Q 3 units HS DOYLE Administration Protocol Insulin Aspart 4 - 8 units 01/14/25 12:00 01/15/25 08:31 Insulin Aspart (*Bkc) 100 Units/Ml SUB-Q Not Given TIDWM [facility] Protocol Insulin Glargine 38 units 01/15/25 21:00 Insulin Glargine (*Bkc) 100 Units/Ml SUB-Q HS [facility] Losartan Potassium 12.5 mg 01/14/25 09:00 01/14/25 09:22 Losartan Potassium 12.5 Mg Tablet PO 12.5 mg On Hold: 01/15/25 07:59 DAILY DOYLE Administration Metoprolol Succinate 12.5 mg 01/15/25 09:00 Metoprolol Succinate Ext Rel 12.5 Mg Tabcr PO QAM DOYLE Ondansetron HCl 4 mg 01/14/25 09:03 01/14/25 11:51 Ondansetron Inj 4 Mg/2 Ml Vial IV PUSH 4 mg Q6H PRN Administration Nausea And Vomiting Rosuvastatin Calcium 20 mg 01/15/25 21:00 Rosuvastatin 20 Mg Tablet PO QHS [facility] Sitagliptin Phosphate 100 mg 01/15/25 09:00 01/15/25 08:32 Sitagliptin Phosphate 100 Mg Tablet PO 100 mg QAM [facility] Administration Ticagrelor 90 mg 01/14/25 19:00 01/15/25 08:33 Ticagrelor 90 Mg Tablet PO 90 mg Q12HR DOYLE Administration Venlafaxine HCl 150 mg 01/15/25 09:00 Venlafaxine Hcl Xr 75 Mg Cap.Er.24h PO DAILY [facility] Radiology Results: ITS Impressions Chest/Abdomen/Pelvis CTA 01/14/25 08:21 IMPRESSION: 1. Normal caliber aorta with no dissection. No acute cardiopulmonary disease or acute intra-abdominal/pelvic process. 2. Diverticulosis. Chest X-Ray 01/15/25 08:25 Impression: No acute cardiopulmonary abnormality. Labs Labs: Laboratory Results - last 24 hr 01/14/25 01/14/25 01/14/25 08:33 08:45 10:00 WBC RBC Hgb Hct MCV MCH MCHC RDW Plt Count MPV Immature Gran % (Auto) Neut % (Auto) Lymph % (Auto) [place] % (Auto) Eos % (Auto) Baso % (Auto) Lymph # (Auto) [place] # (Auto) Eos # (Auto) Baso # (Auto) Abs Immat Gran (auto) Absolute Neuts (auto) Absolute Nucleated RBC Nucleated RBC % PT 14.8 H INR 1.1 APTT > 200.0 H* Sodium Potassium Chloride Carbon Dioxide Anion Gap BUN Creatinine Estim Creat Clear Calc Estimated GFR Glucose POC Capillary Glucose 304 H Calcium Phosphorus Magnesium Total Bilirubin AST ALT Alkaline Phosphatase Troponin I > 80.000 H* D Total Protein Albumin Triglycerides 83 Cholesterol 168 LDL Cholesterol Direct 96 HDL Direct 48 Nasal MRSA (PCR) Not detected 01/14/25 01/14/25 01/14/25 11:15 16:13 19:50 WBC RBC Hgb Hct MCV MCH MCHC RDW Plt Count MPV Immature Gran % (Auto) Neut % (Auto) Lymph % (Auto) [place] % (Auto) Eos % (Auto) Baso % (Auto) Lymph # (Auto) [place] # (Auto) Eos # (Auto) Baso # (Auto) Abs Immat Gran (auto) Absolute Neuts (auto) Absolute Nucleated RBC Nucleated RBC % PT INR APTT Sodium Potassium Chloride Carbon Dioxide Anion Gap BUN Creatinine Estim Creat Clear Calc Estimated GFR Glucose POC Capillary Glucose 264 H 257 H 305 H Calcium Phosphorus Magnesium Total Bilirubin AST ALT Alkaline Phosphatase Troponin I Total Protein Albumin Triglycerides Cholesterol LDL Cholesterol Direct HDL Direct Nasal MRSA (PCR) 01/15/25 01/15/25 01/15/25 03:26 03:27 07:28 WBC 14.3 H RBC 4.90 Hgb 15.1 H Hct 46.9 MCV 95.7 MCH 30.8 MCHC 32.2 RDW 12.7 Plt Count 208 MPV 10.0 Immature Gran % (Auto) 0.6 H Neut % (Auto) 72.4 Lymph % (Auto) 15.4 L [place] % (Auto) 10.0 H Eos % (Auto) 1.1 Baso % (Auto) 0.5 Lymph # (Auto) 2.20 [place] # (Auto) 1.4 H Eos # (Auto) 0.2 Baso # (Auto) 0.1 Abs Immat Gran (auto) 0.08 H Absolute Neuts (auto) 10.3 H Absolute Nucleated RBC 0.000 Nucleated RBC % 0.0 PT INR APTT Sodium 136 L Potassium 4.0 Chloride 103 Carbon Dioxide 29 Anion Gap 4 BUN 14 Creatinine 0.92 Estim Creat Clear Calc 49 Estimated GFR 59 Glucose 163 H POC Capillary Glucose 189 H Calcium 9.0 Phosphorus 3.6 Magnesium 1.7 Total Bilirubin 1.2 AST 319 H ALT 54 H Alkaline Phosphatase 92 Troponin I Total Protein 6.7 Albumin 3.5 Triglycerides Cholesterol LDL Cholesterol Direct HDL Direct Nasal MRSA (PCR) Quality VTE Prophylaxis VTE prophylaxis: mechanical ordered
[2025-01-15] MEDS: METOPROLOL SUCCINATE EXT REL 12.5 MG TABCR PO (09:01)
[2025-01-15] MEDS: VENLAFAXINE HCL XR 75 MG CAP.ER.24H 150 MG PO (09:02)
[2025-01-15] MEDS: LORATADINE 10 MG TABLET PO (09:48)
--- NOTE | 2025-01-15 10:48 | PM.PNCARD ---
Progress Note: A&P Assessment and Plan (1) ST elevation (STEMI) myocardial infarction: Code(s): I21.3 - ST elevation (STEMI) myocardial infarction of unspecified site Status: Acute (2) Paroxysmal atrial fibrillation: Code(s): I48.0 - Paroxysmal atrial fibrillation Status: Acute (3) Ischemic cardiomyopathy: Code(s): I25.5 - Ischemic cardiomyopathy Status: Acute Plan 79-year-old woman with history of TIA, insulin-dependent diabetes, paroxysmal atrial fibrillation, and hyperlipidemia presented with chest discomfort found to have anterior STEMI for which she underwent primary PCI Anterior STEMI -status post primary PCI -she is intolerant to aspirin given that she has facial swelling with potential compromise of respiratory system -she is already on home Eliquis as well as Plavix other she is unsure of the reasons for why she is taking these medications aside from the fact that they are blood thinners -we will plan to load her with Plavix this evening at 300 mg p.o. followed by 75 mg p.o. daily starting tomorrow -we will also resume her Eliquis this evening at 5 mg p.o. b.i.d. -will plan to stop her Brilinta Paroxysmal atrial fibrillation -previously stated eliquis was started shortly after a diagnosis of TIA -she did have a run of atrial fibrillation which would correlate with her history home Eliquis -we will continue metoprolol succinate at 12.5 mg p.o. daily Ischemic cardiomyopathy -will give her 1 time dose of IV Lasix 20 mg -losartan currently on hold due to intermittent soft blood pressures -will reconsider tomorrow Transfer to IMU tomorrow. Physical therapy and occupational therapy consult. Subjective Date/time seen: 01/15/25 10:48 Interval history: States that she has some sinus pressure is otherwise no chest pain or shortness of breath. Yesterday she had some nausea which has resolved today. Review of Systems Cardiovascular: Cardiovascular: Reports as per HPI Respiratory: Respiratory: Reports as per HPI Exam Const: General: comfortable HENMT: Mouth: Yes moist mucous membranes Eyes: EOM: EOMs intact bilaterally Neck: Neck: no JVD Resp: Effort & Inspection: normal respiratory effort Auscultation: clear to auscultation bilaterally Cardio: Rate: tachycardic Rhythm: regular rhythm Extrem: General: no pedal edema Objective Data Vital Signs Vital Signs: Vital Signs - 24 hr 01/14/25 11:47 01/14/25 12:00 01/14/25 12:00 Temperature 36.6 C 36.6 C Pulse Rate 96 94 96 Respiratory Rate 11 L 11 L Blood Pressure 101/71 101/71 Pulse Oximetry 93 93 Oxygen Delivery Oxygen Flow Rate 01/14/25 12:47 01/14/25 14:00 01/14/25 14:00 Temperature Pulse Rate 98 95 96 Respiratory Rate 15 22 H Blood Pressure 96/64 L 98/64 L Pulse Oximetry 96 97 Oxygen Delivery Oxygen Flow Rate 01/14/25 16:00 01/14/25 16:00 01/14/25 18:00 Temperature 36.4 C Pulse Rate 105 H 110 H 94 Respiratory Rate 15 Blood Pressure 112/61 Pulse Oximetry 99 Oxygen Delivery Oxygen Flow Rate 01/14/25 18:00 01/14/25 20:00 01/14/25 20:00 Temperature 36.6 C 36.8 C Pulse Rate 94 97 Respiratory Rate 16 25 H Blood Pressure 96/61 L 101/52 L Pulse Oximetry 97 96 100 Oxygen Delivery Nasal Cannula Oxygen Flow Rate 2 01/14/25 20:00 01/14/25 21:03 01/14/25 22:00 Temperature Pulse Rate 96 91 92 Respiratory Rate 26 H Blood Pressure 92/63 L Pulse Oximetry 100 Oxygen Delivery Oxygen Flow Rate 01/14/25 22:00 01/15/25 00:00 01/15/25 00:00 Temperature 36.8 C Pulse Rate 92 99 102 H Respiratory Rate 28 H Blood Pressure 102/65 Pulse Oximetry 95 Oxygen Delivery Oxygen Flow Rate 01/15/25 00:00 01/15/25 02:00 01/15/25 02:00 Temperature Pulse Rate 100 100 Respiratory Rate 22 H Blood Pressure 110/67 Pulse Oximetry 97 94 Oxygen Delivery Nasal Cannula Oxygen Flow Rate 2 01/15/25 04:00 01/15/25 04:00 01/15/25 04:00 Temperature 36.6 C Pulse Rate 97 100 Respiratory Rate 13 Blood Pressure 88/54 L Pulse Oximetry 98 98 Oxygen Delivery Nasal Cannula Oxygen Flow Rate 2 01/15/25 06:00 01/15/25 06:00 01/15/25 08:00 Temperature 36.6 C Pulse Rate 104 H 104 H 99 Respiratory Rate 18 18 Blood Pressure 87/51 L Pulse Oximetry 98 97 Oxygen Delivery Room Air Oxygen Flow Rate 01/15/25 08:00 01/15/25 09:01 01/15/25 09:02 Temperature Pulse Rate 99 99 Respiratory Rate Blood Pressure Pulse Oximetry 97 Oxygen Delivery Room Air Oxygen Flow Rate Intake/Output Intake/Output: Intake & Output 01/12/25 01/13/25 01/14/25 01/15/25 23:59 23:59 23:59 23:59 Intake Total 1183.3 Output Total 750 Balance 1183.3 -750 Meds/Results Medications: Active Medications Generic Name Dose Route Start Last Admin Trade Name Freq PRN Reason Stop Dose Admin Benzonatate 100 mg 01/14/25 13:00 01/15/25 08:32 Benzonatate 100 Mg Capsule PO 100 mg TID DOYLE Administration Dextrose 12.5 gm 01/14/25 08:08 Dextrose 50% 25 Gm/50 Ml Syringe IV PUSH PRN PRN Hypoglycemia Protocol Glucagon 1 mg 01/14/25 08:08 Glucagon For Inj 1 Mg Vial IM PRN PRN Hypoglycemia Protocol Glucose 15 gm 01/14/25 08:08 Glucose Oral Gel 15 Gm Of Glucse In 37.5 Gm Tube PO PRN PRN Hypoglycemia Protocol Guaifenesin 600 mg 01/14/25 21:00 01/15/25 08:32 Guaifenesin 12 Hr 600 Mg Tabcr PO 600 mg Q12HR DOYLE Administration Guaifenesin/Dextromethorphan 10 ml 01/14/25 09:03 Guaifenesin/Dextromethorphan 10 Ml Udc PO Q4H PRN Cough Dextrose 1,000 mls @ 100 mls/hr 01/14/25 08:08 Dextrose 5% 1,000 Ml IVPB PRN PRN Hypoglycemia Protocol Insulin Aspart 2 - 4 units 01/14/25 21:00 01/14/25 20:24 Insulin Aspart (*Bkc) 100 Units/Ml SUB-Q 3 units HS DOYLE Administration Protocol Insulin Aspart 4 - 8 units 01/14/25 12:00 01/15/25 08:31 Insulin Aspart (*Bkc) 100 Units/Ml SUB-Q Not Given TIDWM [facility] Protocol Insulin Glargine 38 units 01/15/25 21:00 Insulin Glargine (*Bkc) 100 Units/Ml SUB-Q HS DOYLE Loratadine 10 mg 01/15/25 09:00 01/15/25 09:48 Loratadine 10 Mg Tablet PO 01/17/25 09:01 10 mg QAM DOYLE Administration Losartan Potassium 12.5 mg 01/14/25 09:00 01/14/25 09:22 Losartan Potassium 12.5 Mg Tablet PO 12.5 mg On Hold: 01/15/25 07:59 DAILY DOYLE Administration Metoprolol Succinate 12.5 mg 01/15/25 09:00 01/15/25 09:01 Metoprolol Succinate Ext Rel 12.5 Mg Tabcr PO 12.5 mg QAM DOYLE Administration Ondansetron HCl 4 mg 01/14/25 09:03 01/14/25 11:51 Ondansetron Inj 4 Mg/2 Ml Vial IV PUSH 4 mg Q6H PRN Administration Nausea And Vomiting Rosuvastatin Calcium 20 mg 01/15/25 21:00 Rosuvastatin 20 Mg Tablet PO QHS DOYLE Sitagliptin Phosphate 100 mg 01/15/25 09:00 01/15/25 08:32 Sitagliptin Phosphate 100 Mg Tablet PO 100 mg QAM DOYLE Administration Ticagrelor 90 mg 01/14/25 19:00 01/15/25 08:33 Ticagrelor 90 Mg Tablet PO 90 mg Q12HR DOYLE Administration Venlafaxine HCl 150 mg 01/15/25 09:00 01/15/25 09:02 Venlafaxine Hcl Xr 75 Mg Cap.Er.24h PO 150 mg DAILY DOYLE Administration Radiology Results: ITS Impressions Chest/Abdomen/Pelvis CTA 01/14/25 08:21 IMPRESSION: 1. Normal caliber aorta with no dissection. No acute cardiopulmonary disease or acute intra-abdominal/pelvic process. 2. Diverticulosis. Chest X-Ray 01/15/25 08:25 Impression: No acute cardiopulmonary abnormality. Labs Labs: Laboratory Results - last 24 hr 01/14/25 01/14/25 01/14/25 10:00 11:15 16:13 WBC RBC Hgb Hct MCV MCH MCHC RDW Plt Count MPV Immature Gran % (Auto) Neut % (Auto) Lymph % (Auto) [place] % (Auto) Eos % (Auto) Baso % (Auto) Lymph # (Auto) [place] # (Auto) Eos # (Auto) Baso # (Auto) Abs Immat Gran (auto) Absolute Neuts (auto) Absolute Nucleated RBC Nucleated RBC % Sodium Potassium Chloride Carbon Dioxide Anion Gap BUN Creatinine Estim Creat Clear Calc Estimated GFR Glucose POC Capillary Glucose 264 H 257 H Calcium Phosphorus Magnesium Total Bilirubin AST ALT Alkaline Phosphatase Total Protein Albumin Nasal MRSA (PCR) Not detected 01/14/25 01/15/25 01/15/25 19:50 03:26 03:27 WBC 14.3 H RBC 4.90 Hgb 15.1 H Hct 46.9 MCV 95.7 MCH 30.8 MCHC 32.2 RDW 12.7 Plt Count 208 MPV 10.0 Immature Gran % (Auto) 0.6 H Neut % (Auto) 72.4 Lymph % (Auto) 15.4 L [place] % (Auto) 10.0 H Eos % (Auto) 1.1 Baso % (Auto) 0.5 Lymph # (Auto) 2.20 [place] # (Auto) 1.4 H Eos # (Auto) 0.2 Baso # (Auto) 0.1 Abs Immat Gran (auto) 0.08 H Absolute Neuts (auto) 10.3 H Absolute Nucleated RBC 0.000 Nucleated RBC % 0.0 Sodium 136 L Potassium 4.0 Chloride 103 Carbon Dioxide 29 Anion Gap 4 BUN 14 Creatinine 0.92 Estim Creat Clear Calc 49 Estimated GFR 59 Glucose 163 H POC Capillary Glucose 305 H Calcium 9.0 Phosphorus 3.6 Magnesium 1.7 Total Bilirubin 1.2 AST 319 H ALT 54 H Alkaline Phosphatase 92 Total Protein 6.7 Albumin 3.5 Nasal MRSA (PCR) 01/15/25 07:28 WBC RBC Hgb Hct MCV MCH MCHC RDW Plt Count MPV Immature Gran % (Auto) Neut % (Auto) Lymph % (Auto) [place] % (Auto) Eos % (Auto) Baso % (Auto) Lymph # (Auto) [place] # (Auto) Eos # (Auto) Baso # (Auto) Abs Immat Gran (auto) Absolute Neuts (auto) Absolute Nucleated RBC Nucleated RBC % Sodium Potassium Chloride Carbon Dioxide Anion Gap BUN Creatinine Estim Creat Clear Calc Estimated GFR Glucose POC Capillary Glucose 189 H Calcium Phosphorus Magnesium Total Bilirubin AST ALT Alkaline Phosphatase Total Protein Albumin Nasal MRSA (PCR)
[2025-01-15] MEDS: FUROSEMIDE INJ 40 MG/4 ML VIAL 20 MG IV PUSH (11:30)
[2025-01-15] MEDS: APIXABAN 5 MG TABLET PO ×2 (11:31→21:09)
[2025-01-15] MEDS: INSULIN ASPART (*BKC) 100 UNITS/ML SUB-Q ×3 (11:31→21:10)
--- NOTE | 2025-01-15 14:03 | P.HP_ITS ---
H&P: HPI History of Present Illness Date/Time: 01/15/25 14:03 Chief Complaint: Chest pain Narrative: 79-year-old female presents the hospital on 01/14/2025 with complaints of chest pain. She was found to have a ST-elevation myocardial infarction I was taken to the laboratory geneticist that day. She had a PICC to the LAD with 1 stent placed. Patient is allergic to aspirin she was started on ticagrelor, carvedilol, lisinopril, rosuvastatin. On 01/15/2025 around noon the patient had increased ST elevation in leads V1 and V2, Dr. Rios is concerned about a possible aneurysm will continue with current medical management at this time however if the patient complains of chest pain, has decreased oxygen saturations or decreasing her blood pressure Dr. Rios take her back to the laboratory geneticist. Patient states that she has no complaints at this time, denies shortness of breath left arm pain or chest pain. Review of Systems Review of Systems: 12 systems were reviewed and are negativ e except for as per HPI. FORMERLY [facility], [facility] Past Medical History Medical History Hypotension Anxiety and depression TIA (transient ischemic attack) 2012 HTN (hypertension) Hypomagnesemia Screening for colon cancer Mini stroke (~2012) Chronic headaches Acid reflux Diabetes Arthritis Surgical History Surgical History History of hand surgery trigger finger -right 3rd finger x3 History of bladder suspension procedure History of arthroscopy of left knee H/O: hysterectomy (~1979) Family History Family History Father Hypertension Mother Breast cancer Social History Social History Social History: Patient declined [facility] 02/12/24 Smoking status: Former smoker Tobacco type: cigarettes Additional smoking assessment comments: quit smoking about 40 years ago Alcohol intake: current Drinks per week: 1 Alcohol use details: OCC. Substance use: never Substance use type: does not use Do You Feel Safe in your Home?: Yes Lack of Transportation: No Lack of Food: Never True Current Housing: I Have Housing Concerned About Future Housing: No Difficulty Paying Gas/Electric Bills: No Difficulty Paying for Meds: No Currently Unemployed: No Education: High School Diploma/GED Difficulty w/ Childcare or Family Care: No Living arrangements: alone Occupation/Education: retired Gender identity (if verbalized by the patient): Female Spiritual care concerns: No Agree to blood products: Yes Meds Home Medications and Allergies Home Medications ?Medication ?Instructions ?Recorded ?Confirmed ?Type venlafaxine 150 mg 150 mg PO DAILY #90 caps 01/14/25 Rx capsule,extended release 24 hr acetaminophen 500 mg tablet 500 mg PO Q6H PRN fever or pain 07/03/24 01/14/25 History glucose 4 gram chewable tablet 16 g (4 x 4 gram) PO Q1 5M PRN 07/22/24 01/14/25 Rx (Dex4 Glucose) hypoglycemia #60 tabs pen needle, diabetic 32 gauge x #400 ea 07/22/2401/14 Rx 5/32 (Chante Pen Needle) clopidogrel 75 mg tablet 75 mg PO DAILY #90 tabs 04/3 01/14/25 Rx OMEGA XL 1 cap PO DAILY 10/06/2401/04 History glucagon 1 mg/0.2 mL subcutaneous 1 mg subcut ONCE PRN hypoglycemia 10/06/24 01/14/25 History auto-injector (GvSgrouples HypoPen 2-Pack) insulin glargine 100 unit/mL (3 50 unit subcut QPM 07/2801/14/25 History mL) subcutaneous pen (Basaglar KwikPen U-100 Insulin) 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,warp tier,cont #1 ea 10/26/24 01/14/25 Rx (FreeStyle James 3 [place]) magnesium oxide 400 mg (241.3 mg 400 mg PO DAILY #90 t abs 11/03/24 01/14/25 Rx magnesium) tablet pravastatin 40 mg tablet 40 mg PO DAILY #90 tabs 07/11/2701/14/25 Rx ondansetron 4 mg disintegrating 4 mg PO Q8H PRN nausea and 12/28/24 01/14/25 Rx tablet vomiting #10 tabs linagliptin 5 mg tablet (Tradjenta) 5 mg PO QAM #90 ta bs 01/12/25 01/14/25 Rx apixaban 5 mg tablet (Eliquis) 5 mg PO .q12 01/14/25 0 01/14/25 History Allergies Allergy/AdvReac Type Severity Reaction Status Date / Time Penicillins Allergy Mild Swelling Verified 12/22/24 14:39 pentazocine Allergy Mild Unknown Verified 12/22/24 14:39 albuterol Allergy syncope Verified 12/22/24 14:39 aspirin Allergy Swelling Verified 12/22/24 14:39 codeine Allergy Numbness Verified 12/22/24 14:39 Sulfa (Sulfonamide Allergy Unknown Verified 12/22/24 14:39 Antibiotics) ibuprofen AdvReac GI upset Verified 12/22/24 14:58 Vital Signs Vital Signs - 24 hr 01/14/25 16:00 01/14/25 16:00 01/14/25 18:00 Temperature 97.6 F Pulse Rate 105 H 110 H 94 Respiratory Rate 15 Blood Pressure 112/61 Pulse Oximetry 99 Oxygen Delivery Oxygen Flow Rate 01/14/25 18:00 01/14/25 20:00 01/14/25 20:00 Temperature 97.8 F 98.3 F Pulse Rate 94 97 Respiratory Rate 16 25 H Blood Pressure 96/61 L 101/52 L Pulse Oximetry 97 96 100 Oxygen Delivery Nasal Cannula Oxygen Flow Rate 2 01/14/25 20:00 01/14/25 21:03 01/14/25 22:00 Temperature Pulse Rate 96 91 92 Respiratory Rate 26 H Blood Pressure 92/63 L Pulse Oximetry 100 Oxygen Delivery Oxygen Flow Rate 01/14/25 22:00 01/15/25 00:00 01/15/25 00:00 Temperature 98.3 F Pulse Rate 92 99 102 H Respiratory Rate 28 H Blood Pressure 102/65 Pulse Oximetry 95 Oxygen Delivery Oxygen Flow Rate 01/15/25 00:00 01/15/25 02:00 01/15/25 02:00 Temperature Pulse Rate 100 100 Respiratory Rate 22 H Blood Pressure 110/67 Pulse Oximetry 97 94 Oxygen Delivery Nasal Cannula Oxygen Flow Rate 2 01/15/25 04:00 01/15/25 04:00 01/15/25 04:00 Temperature 98 F Pulse Rate 97 100 Respiratory Rate 13 Blood Pressure 88/54 L Pulse Oximetry 98 98 Oxygen Delivery Nasal Cannula Oxygen Flow Rate 2 01/15/25 06:00 01/15/25 06:00 01/15/25 08:00 Temperature 98 F Pulse Rate 104 H 104 H 99 Respiratory Rate 18 18 Blood Pressure 87/51 L Pulse Oximetry 98 97 Oxygen Delivery Room Air Oxygen Flow Rate 01/15/25 08:00 01/15/25 08:00 01/15/25 09:01 Temperature Pulse Rate 99 101 H 99 Respiratory Rate 14 Blood Pressure 86/63 L Pulse Oximetry 92 Oxygen Delivery Oxygen Flow Rate 01/15/25 09:02 01/15/25 10:00 01/15/25 10:00 Temperature Pulse Rate 100 100 Respiratory Rate 19 Blood Pressure 100/71 Pulse Oximetry 97 94 Oxygen Delivery Room Air Oxygen Flow Rate 01/15/25 12:00 01/15/25 12:00 01/15/25 12:00 Temperature 98.3 F Pulse Rate 97 111 H 111 H Respiratory Rate 17 17 Blood Pressure 98/65 L Pulse Oximetry 95 95 Oxygen Delivery Room Air Oxygen Flow Rate Exam Narrative: General: well appearing, appears stated age. HEENT: normocephalic, atraumatic. Mucous membranes moist. EOMI, PERRLA, bilateral sclera anicteric, no conjunctival injection. Neck supple without JVD, lymphadenopathy, or bruit. Respiratory: Diminished to ascultation bilaterally. No rales/rhonic/wheezes. Cardiovascular: Regular rate and rhythm, normal S1-S2 upon ascultation. No murmurs, rubs, or clicks. PMI is nondisplaced, capillary refill less than 3 second. Abdomen: Soft, round, no pulsatile masses, nondistended and nontender. No rebound, no guarding. No CVA tenderness, no hepatosplenomegaly. Bowel sounds present to all four quadrants. No high pitch or tinkling sounds, resonant to percussion. Extremities: No cyanosis, clubbing, or edema present. Pulses are palpable 2/2. Active ROM to all four extremities. Neuro: Alert and orientated x 4. PERRLA. Cranial nerves 2-12 intact without focal deficit. Skin: Warm, dry, and intact, without rash, erythema, or lesion. Psych: pleasant, cooperative, normal speech, normal affect, no hallucinations, no dysarthia General ecchymosis H&P: Results Labs Labs: Short CBC 01/15/25 Range/Units 03:27 WBC 14.3 H (4.5-10.0) K/mm3 Hgb 15.1 H (12.0-15.0) g/dL Hct 46.9 (37.0-47.0) % Plt Count 208 (150-375) k/mm3 BMP 01/15/25 03:26 Sodium 136 L Potassium 4.0 Chloride 103 Carbon Dioxide 29 BUN 14 Creatinine 0.92 Glucose 163 H Calcium 9.0 Liver Function 01/15/25 Range/Units 03:26 Total Bilirubin 1.2 (0.2-1.3) mg/dL AST 319 H (14-36) U/L ALT 54 H (6-35) U/L Alkaline Phosphatase 92 (38-126) U/L Albumin 3.5 (3.5-5.1) g/dL Assessment and Plan Assessment and plan (1) ST elevation (STEMI) myocardial infarction: Code(s): I21.3 - ST elevation (STEMI) myocardial infarction of unspecified site Status: Acute Assessment and Plan: 1 stent to the LAD on 01/14/2025 by Cardiology Holding losartan due to soft blood pressures Decreased dose of Coreg Continue ticagrelor, rosuvastatin (2) Hyperlipidemia LDL goal <70: Code(s): E78.5 - Hyperlipidemia, unspecified Status: Acute Assessment and Plan: Continue statin (3) Diabetes: Qualifiers: Diabetes mellitus type: type 2 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 Continue home diabetic medications SSI (4) Anxiety and depression: Code(s): F41.9 - Anxiety disorder, unspecified; F32.A - Depression, unspecified Status: Acute Assessment and Plan: Continue venlafaxine (5) Cough: Code(s): R05.9 - Cough, unspecified Status: Acute Assessment and Plan: Sputum clear Chest x-ray clear Tessalon Perles and guaifenesin Clear to Plan Waiting on patient to transfer out of IMU Quality VTE Prophylaxis VTE prophylaxis: mechanical ordered and pharmacologic ordered Hospitalist [facility] Advance Care Plan I have confirmed that the patient's Advanced Care Plan is present, code status is documented, or surrogate decision maker is listed in patient medical record.: Yes Medication Reconciliation I have utilized all available resources to obtain, update and review the patients current medications (includes all prescriptions, OTC, herbals, cannabis, and nutritional supplements).: Yes
--- NOTE | 2025-01-15 14:57 | PCPTNOTE ---
Attempted PT evaluation, Pt refused stating The doctor said I would start physical therapy tomorrow. Pt also complaining of abdominal pain and urinary incontinence. Nurse notified. Will follow.
[2025-01-15] MEDS: CLOPIDOGREL BISULFATE 300 MG TABLET PO (21:08)
[2025-01-15] MEDS: ROSUVASTATIN 20 MG TABLET PO (21:09)
[2025-01-15] MEDS: INSULIN GLARGINE (*BKC) 100 UNITS/ML 38 UNITS SUB-Q (21:09)
[2025-01-15] MEDS: FLUTICASONE PROPIONATE 0.05% NA SPR 16 GM BTL (*BKC) 1 SPRAY NASAL (21:24)
[2025-01-16] VITALS (21 sets, daily range): BP systolic 80–121; BP diastolic 51–81; PULSE 77–120; RESP 14–29; TEMP 36.6–36.9; O2SAT 93–100
--- NOTE | 2025-01-16 00:48 | PC.NURSE ---
RN received report to call cardiology if patient started having CP and/or blood pressures started to drop (no specific parameters given.) Patient's BPs started to drop around 2200 (see chart) with no c/o CP, not symptomatic of hypotension. Continued to monitor and called exchange at [phone] as BPs continued to drop for Dr. Barlow who is circulation worker (patient had been cath by Gabriel 01/15/25.) Called exchange a second time at 235 to report I did not get a c/b. The exchange called me back at 40 to inquire if Cain or Kevin called me back... exchange stated the Cain stated unless it was a Stemi I was to call Kevin. I advised her to go ahead and page Kevin. Dr. Brown c/b at 43 - I updated him on the cath that was done 01/15, the concern over ST elevation in V2 on the last EKG by Dr. Claudio (who spoke with Dr. Rios per report) and that I was to report to call if BPs dropped and/or patient had CP. Advised what patient's BPs have been since 2200, that patient is not symptomatic & patient's EF is 20-25% so unlikely to be fluid responsive. Dr. Brown said that patient did not need to go to the cath lab radiology technician tonight & continue to monitor her. I advised if the patient becomes symptomatic and/or takes a turn for the worse I would call back.
--- NOTE | 2025-01-16 01:05 | PC.NURSE ---
RN was advised that Dr. Claudio spoke with Dr. Rios about concerns of ST elevation in the patient's last EKG in V2. Report continued to stating to call Cardiology if patient developed Chest Pain and/or Blood Pressures started to drop - no parameters received for how low BPs needed to be before calling. Patient's BPs started dropping around 2200. Both arms were checked as well as a manual BP was completed and verified that BPs charted were accurate. Patient was not symptomatic or c/o chest pain. Patient's EF is 20-25% so unlikely fluid responsive. I continued to monitor the patient to see if BPs would stabilize or continue to drop. I called the cardiology exchange at [phone] Barlow (homeowner association manager for [employer]) and called back again at [phone] when no call back was received. The exchanged c/b at [address] Barlow stated I need to speak with Dr. Brown unless I was calling about a Stemi. I told them to go ahead and page Dr. Brown - who called me back at 0044. I updated him on the situation as well as the BPs that are charted, he advised me that we did not need to take her to the cheesemaking laborer tonight. I stated I would call back if the patient started to deteriorate, started having CP or signs of hypotension. Will continue to monitor patient closely.
[2025-01-16 04:01] LABS: Hematocrit 42.3 % (37.0-47.0); Hemoglobin 13.9 g/dL (12.0-15.0); Immature Granulocyte Percent A 0.7 % (0-0.5); Lymphocytes Absolute Auto 2.32 K/mm3 (0.9-3.2); Mean Corpuscular HGB Conc 32.9 g/dl (32-36); Mean Corpuscular Hemoglobin 31.2 pg (26-34); Mean Corpuscular Volume 94.8 fl (80-100); Nucleated Red Blood Cells Absolute Auto 0.000 K/mm3 (0.0-0.012); Nucleated Red Blood Cells Perc 0.0 % (0.0-0.2); Platelet Count Result 203 k/mm3 (150-375); Red Blood Count 4.46 M/mm3 (4.2-5.4); White Blood Count 14.4 K/mm3 (4.5-10.0)
[2025-01-16 04:15] LABS: Alanine Aminotransferase 35 U/L (6-35); Albumin Level 3.2 g/dL (3.5-5.1); Alkaline Phosphatase 91 U/L (38-126); Anion Gap 5 mmol/L (4-12); Aspartate Amino Transferase 121 U/L (14-36); Bilirubin,Total 0.9 mg/dL (0.2-1.3); Blood Urea Nitrogen 16 mg/dL (7-17); Calcium 8.3 mg/dL (8.4-10.2); Carbon Dioxide 27 mmol/L (22-30); Chloride 101 mmol/L (98-107); Estimated CRCL calculation 48 ml/min; Estimated Glomerular Filt Rate 57; Glucose 106 mg/dL (65-110); Magnesium 1.7 mg/dL (1.6-2.3); Potassium 3.4 mmol/L (3.4-5.0); Sodium 133 mmol/L (137-145); Total Protein 6.2 g/dL (6.3-8.2)
[2025-01-16] MEDS: MAGNESIUM SULF 2 GM/WATER 50ML 2 GM/50 ML BAG IVPB (08:39)
[2025-01-16] MEDS: LORATADINE 10 MG TABLET PO (08:41)
[2025-01-16] MEDS: APIXABAN 5 MG TABLET PO ×2 (08:41→20:24)
[2025-01-16] MEDS: FLUTICASONE PROPIONATE 0.05% NA SPR 16 GM BTL (*BKC) 1 SPRAY NASAL ×2 (08:41→20:24)
[2025-01-16] MEDS: POTASSIUM CHLORIDE 20 MEQ ER TABLET 40 MEQ PO (08:41)
[2025-01-16] MEDS: guaiFENesin 12 HR 600 MG TABCR PO ×2 (08:41→20:24)
[2025-01-16] MEDS: BENZONATATE 100 MG CAPSULE PO ×2 (08:41→17:14)
[2025-01-16] MEDS: CLOPIDOGREL BISULFATE 75 MG TABLET PO (08:41)
[2025-01-16] MEDS: VENLAFAXINE HCL XR 75 MG CAP.ER.24H 150 MG PO (09:00)
--- NOTE | 2025-01-16 11:41 | P.PNCA_ITS ---
Progress Note: A&P Assessment and Plan (1) ST elevation (STEMI) myocardial infarction: Code(s): I21.3 - ST elevation (STEMI) myocardial infarction of unspecified site Status: Acute Assessment and Plan: Status post anterior STEMI (2) Paroxysmal atrial fibrillation: Code(s): I48.0 - Paroxysmal atrial fibrillation Status: Acute Assessment and Plan: On anticoagulation (3) Ischemic cardiomyopathy: Code(s): I25.5 - Ischemic cardiomyopathy Status: Acute Assessment and Plan: 1. The left ventricle is normal in size with severely reduced systolic function. The left ventricular ejection fraction is visually estimated to be 20-25%. The entire septum, entire anterior wall, and entire apex are severely hypokinetic. 2. The mitral valve leaflets are sclerotic. There is mild mitral regurgitation. (4) Electrolyte abnormality: Code(s): E87.8 - Other disorders of electrolyte and fluid balance, not elsewhere classified Status: Acute Assessment and Plan: Potassium and magnesium are low today. Receiving 40 mEq of potassium chloride x1 as well as 2 g of IV magnesium Plan 79-year-old woman with history of TIA, insulin-dependent diabetes, paroxysmal atrial fibrillation, and hyperlipidemia presented with chest discomfort found to have anterior STEMI for which she underwent primary PCI Anterior STEMI -status post primary PCI -she is intolerant to aspirin given that she has facial swelling with potential compromise of respiratory system. Continue Eliquis and clopidogrel Paroxysmal atrial fibrillation -previously stated eliquis was started shortly after a diagnosis of TIA -she did have a run of atrial fibrillation which would correlate with her history home Eliquis -metoprolol on hold because of hypotension Ischemic cardiomyopathy -will give her 1 time dose of IV Lasix 20 mg Continue to hold losartan also Transfer to IMU tomorrow. Physical therapy and occupational therapy consult. Subjective Date/time seen: 01/16/25 11:41 Interval history: Will a year old who sustained an anterior STEMI Date of service 01/16/2025: Blood pressure is low but relatively asymptomatic. No chest pain, shortness of breath. Feels a little nauseated but sitting up to a chair today. Review of Systems Review of Systems: All systems reviewed & are unremarkable except as noted in HPI and below Constitutional: Constitutional: Denies body ache(s) Eyes: Eyes: Denies blurry vision ENT: Reports Normal hearing present Cardiovascular: Cardiovascular: Denies chest pain Respiratory: Respiratory: Denies dyspnea Gastrointestinal: Gastrointestinal: Denies abdominal pain Genitourinary: Genitourinary: Denies hematuria Musculoskeletal: Musculoskeletal: Denies back pain Integumentary/Breasts: Skin/Breast: Denies erythema Neurologic: Denies Abnormal speech present Psychiatric: Psychiatric: Denies anxiety Endocrine: Endocrine: Denies change in body appearance Hematologic/Lymphatic: Hematologic/Lymphatic: Denies easy bleeding Allergic/Immunologic: Allergic/Immunologic: Denies GI upset with certain foods Exam Narrative: Appears stated age Const: General: comfortable and no acute distress HENMT: Face/Nose/Sinus: Normal nares present and no epistaxis Mouth: Yes moist mucous membranes Eyes: General: appearance normal, both eyes and all related structures Sclera: sclerae normal Neck: Neck: supple and no JVD Carotids: no bruits Resp: Effort & Inspection: normal respiratory effort Auscultation: clear to auscultation bilaterally and lung sounds not diminished Other: No chest wall tenderness Cardio: Rate: regular rate Rhythm: regular rhythm Heart sounds: no gallops, no murmurs and no rubs GI: Inspection: non-distended Auscultation: normal bowel sounds Skin: General skin exam: normal color, rashes and/or lesions noted and no erythema Other: Warm Neuro: Speech: normal speech Sensory Exam: normal sensation Other: No obvious focal deficit or facial asymmetry Extrem: General: no edema and no pedal edema Other: Normal capillary refills Intact distal pulses. Psych: Mental Status: mental status grossly normal Affect: normal affect Objective Data Vital Signs Vital Signs: Vital Signs - 24 hr 01/15/25 12:00 01/15/25 12:00 01/15/25 12:00 Temperature 36.8 C Pulse Rate 97 111 H 111 H Respiratory Rate 17 17 Blood Pressure 98/65 L Pulse Oximetry 95 95 Oxygen Delivery Room Air 01/15/25 14:00 01/15/25 14:00 01/15/25 16:00 Temperature Pulse Rate 95 95 95 Respiratory Rate 28 H 28 H Blood Pressure 97/64 L Pulse Oximetry 92 92 Oxygen Delivery Room Air 01/15/25 16:00 01/15/25 16:00 01/15/25 18:00 Temperature 36.6 C Pulse Rate 95 96 96 Respiratory Rate 15 Blood Pressure 80/58 L Pulse Oximetry 93 Oxygen Delivery 01/15/25 18:00 01/15/25 19:00 01/15/25 19:15 Temperature Pulse Rate 96 98 101 H Respiratory Rate 15 27 H 17 Blood Pressure 92/80 L 106/72 Pulse Oximetry 96 94 94 Oxygen Delivery 01/15/25 20:00 01/15/25 20:01 01/15/25 21:00 Temperature 36.8 C Pulse Rate 98 99 Respiratory Rate 20 Blood Pressure 102/85 Pulse Oximetry 97 Oxygen Delivery Room Air 01/15/25 21:42 01/15/25 22:00 01/15/25 22:00 Temperature Pulse Rate 102 H 86 92 Respiratory Rate 20 20 Blood Pressure 107/65 86/68 L Pulse Oximetry 98 95 Oxygen Delivery 01/15/25 22:51 01/15/25 23:01 01/15/25 23:10 Temperature Pulse Rate 96 86 100 Respiratory Rate 15 12 22 H Blood Pressure 93/62 L 76/49 L 74/43 L Pulse Oximetry 94 96 92 Oxygen Delivery 01/15/25 23:12 01/15/25 23:22 01/15/25 23:35 Temperature Pulse Rate 97 95 94 Respiratory Rate 28 H 28 H 21 H Blood Pressure 85/51 L 86/51 L 73/52 L Pulse Oximetry 93 96 92 Oxygen Delivery 01/16/25 00:00 01/16/25 00:00 01/16/25 00:15 Temperature 36.9 C Pulse Rate 91 90 Respiratory Rate 21 H Blood Pressure 81/51 L Pulse Oximetry 96 Oxygen Delivery Room Air 01/16/25 00:30 01/16/25 02:00 01/16/25 02:00 Temperature Pulse Rate 89 89 89 Respiratory Rate 25 H Blood Pressure 92/57 L 105/60 Pulse Oximetry 98 Oxygen Delivery 01/16/25 04:00 01/16/25 04:00 01/16/25 04:20 Temperature 36.8 C Pulse Rate 92 92 Respiratory Rate 20 Blood Pressure 98/71 L Pulse Oximetry 96 Oxygen Delivery Room Air 01/16/25 06:00 01/16/25 06:00 01/16/25 08:00 Temperature 36.6 C Pulse Rate 89 89 92 Respiratory Rate 27 H 20 Blood Pressure 107/76 98/73 L Pulse Oximetry 95 93 Oxygen Delivery 01/16/25 08:00 01/16/25 08:00 01/16/25 09:23 Temperature Pulse Rate 97 Respiratory Rate Blood Pressure Pulse Oximetry Oxygen Delivery Room Air Room Air 01/16/25 10:00 01/16/25 10:00 Temperature 36.6 C Pulse Rate 91 95 Respiratory Rate 17 Blood Pressure 93/68 L Pulse Oximetry 100 Oxygen Delivery Intake/Output Intake/Output: Intake & Output 01/13/25 01/14/25 01/15/25 01/16/25 23:59 23:59 23:59 23:59 Intake Total 1183.3 1070 684 Output Total 1350 100 Balance 1183.3 -280 584 Meds/Results Medications: Active Medications Generic Name Dose Route Start Last Admin Trade Name Freq PRN Reason Stop Dose Admin Apixaban 5 mg 01/15/25 10:55 01/16/25 08:41 Apixaban 5 Mg Tablet PO 5 mg Q12HR DOYLE Administration Benzonatate 100 mg 01/14/25 13:00 01/16/25 08:41 Benzonatate 100 Mg Capsule PO 100 mg TID DOYLE Administration Clopidogrel Bisulfate 75 mg 01/16/25 09:00 01/16/25 08:41 Clopidogrel Bisulfate 75 Mg Tablet PO 75 mg DAILY DOYLE Administration Dextrose 12.5 gm 01/14/25 08:08 Dextrose 50% 25 Gm/50 Ml Syringe IV PUSH PRN PRN Hypoglycemia Protocol Fluticasone Propionate 1 spray 01/15/25 21:00 01/16/25 08:41 Fluticasone Propionate 0.05% Na Spr 16 Gm Btl (*Bkc) NASAL 1 spray Q12HR DOYLE Administration Glucagon 1 mg 01/14/25 08:08 Glucagon For Inj 1 Mg Vial IM PRN PRN Hypoglycemia Protocol Glucose 15 gm 01/14/25 08:08 Glucose Oral Gel 15 Gm Of Glucse In 37.5 Gm Tube PO PRN PRN Hypoglycemia Protocol Guaifenesin 600 mg 01/14/25 21:00 01/16/25 08:41 Guaifenesin 12 Hr 600 Mg Tabcr PO 600 mg Q12HR DOYLE Administration Guaifenesin/Dextromethorphan 10 ml 01/14/25 09:03 Guaifenesin/Dextromethorphan 10 Ml Udc PO Q4H PRN Cough Dextrose 1,000 mls @ 100 mls/hr 01/14/25 08:08 Dextrose 5% 1,000 Ml IVPB PRN PRN Hypoglycemia Protocol Insulin Aspart 2 - 4 units 01/14/25 21:00 01/15/25 21:10 Insulin Aspart (*Bkc) 100 Units/Ml SUB-Q 2 units HS [facility] Administration Protocol Insulin Aspart 4 - 8 units 01/14/25 12:00 01/16/25 08:23 Insulin Aspart (*Bkc) 100 Units/Ml SUB-Q Not Given TIDWM [facility] Protocol Insulin Glargine 38 units 01/15/25 21:00 01/15/25 21:09 Insulin Glargine (*Bkc) 100 Units/Ml SUB-Q 38 units HS DOYLE Administration Loratadine 10 mg 01/15/25 09:00 01/16/25 08:41 Loratadine 10 Mg Tablet PO 01/17/25 09:01 10 mg QAM [facility] Administration Losartan Potassium 12.5 mg 01/14/25 09:00 01/14/25 09:22 Losartan Potassium 12.5 Mg Tablet PO 12.5 mg On Hold: 01/15/25 07:59 DAILY DOYLE Administration Metoprolol Succinate 12.5 mg 01/15/25 09:00 01/16/25 10:58 Metoprolol Succinate Ext Rel 12.5 Mg Tabcr PO Not Given On Hold: 01/16/25 10:[facility] [place] HCl 4 mg 01/14/25 09:03 01/14/25 11:51 Ondansetron Inj 4 Mg/2 Ml Vial IV PUSH 4 mg Q6H PRN Administration Nausea And Vomiting Rosuvastatin Calcium 20 mg 01/15/25 21:00 01/15/25 21:09 Rosuvastatin 20 Mg Tablet PO 20 mg QHS [facility] Administration Sitagliptin Phosphate 100 mg 01/15/25 09:00 01/16/25 08:41 Sitagliptin Phosphate 100 Mg Tablet PO 100 mg QAM [facility] Administration Venlafaxine HCl 150 mg 01/15/25 09:00 01/15/25 09:02 Venlafaxine Hcl Xr 75 Mg Cap.Er.24h PO 150 mg DAILY DOYLE Administration Radiology Results: ITS Impressions Chest/Abdomen/Pelvis CTA 01/14/25 08:21 IMPRESSION: 1. Normal caliber aorta with no dissection. No acute cardiopulmonary disease or acute intra-abdominal/pelvic process. 2. Diverticulosis. Labs Labs: Laboratory Results - last 24 hr 01/15/25 01/15/25 01/16/25 16:27 20:14 03:48 WBC 14.4 H RBC 4.46 Hgb 13.9 Hct 42.3 MCV 94.8 MCH 31.2 MCHC 32.9 RDW 12.5 Plt Count 203 MPV 10.2 Immature Gran % (Auto) 0.7 H Neut % (Auto) 71.3 Lymph % (Auto) 16.2 L [place] % (Auto) 10.0 H Eos % (Auto) 1.5 Baso % (Auto) 0.3 Lymph # (Auto) 2.32 [place] # (Auto) 1.4 H Eos # (Auto) 0.2 Baso # (Auto) 0.1 Abs Immat Gran (auto) 0.10 H Absolute Neuts (auto) 10.2 H Absolute Nucleated RBC 0.000 Nucleated RBC % 0.0 Sodium 133 L Potassium 3.4 Chloride 101 Carbon Dioxide 27 Anion Gap 5 BUN 16 Creatinine 0.95 Estim Creat Clear Calc 48 Estimated GFR 57 L Glucose 106 POC Capillary Glucose 294 H 224 H Calcium 8.3 L Phosphorus 3.9 Magnesium 1.7 Total Bilirubin 0.9 AST 121 H ALT 35 Alkaline Phosphatase 91 Total Protein 6.2 L Albumin 3.2 L 01/16/25 07:21 WBC RBC Hgb Hct MCV MCH MCHC RDW Plt Count MPV Immature Gran % (Auto) Neut % (Auto) Lymph % (Auto) [place] % (Auto) Eos % (Auto) Baso % (Auto) Lymph # (Auto) [place] # (Auto) Eos # (Auto) Baso # (Auto) Abs Immat Gran (auto) Absolute Neuts (auto) Absolute Nucleated RBC Nucleated RBC % Sodium Potassium Chloride Carbon Dioxide Anion Gap BUN Creatinine Estim Creat Clear Calc Estimated GFR Glucose POC Capillary Glucose 118 H Calcium Phosphorus Magnesium Total Bilirubin AST ALT Alkaline Phosphatase Total Protein Albumin
[2025-01-16] MEDS: ALBUMIN HUMAN 5% 250 ML IV CONT (12:16)
[2025-01-16] MEDS: ONDANSETRON INJ 4 MG/2 ML VIAL IV PUSH (12:27)
--- NOTE | 2025-01-16 12:43 | P.PNINT_ITS ---
Progress Note: A&P Assessment and Plan (1) ST elevation (STEMI) myocardial infarction: Code(s): I21.3 - ST elevation (STEMI) myocardial infarction of unspecified site Status: Acute Assessment and Plan: Patient presented with substernal chest pain radiating to back and left ER. She also felt some numbness in the left thumb -EKG showed ST elevation in V1 and V2 with reciprocal changes in leads 2, 3 and AVF. STEMI team was alerted, patient was taking the cardiac catheterization lab which she was found to have a 99% occlusion of mid LAD. - PCI with JORGE x1 to mid LAD with FLIP 3 flow post intervention in 0% stenosis. -patient is allergy to aspirin -continue ticagrelor, rosuvastatin -patient was started on Coreg and losartan, blood pressures are soft, will decrease the dose of Coreg and hold her losartan and discuss with Cardiology -cardiology following the patient (2) HTN (hypertension): Code(s): I10 - Essential (primary) hypertension Status: Acute Assessment and Plan: Hold metoprolol and losartan -patient hypotensive overnight in the 70s -will give albumin 5% 250 mL IV x1 (3) Hyperlipidemia LDL goal <70: Code(s): E78.5 - Hyperlipidemia, unspecified Status: Acute Assessment and Plan: Continue rosuvastatin (4) Diabetes: Qualifiers: Diabetes mellitus type: type 2 Diabetes mellitus rn long term care insulin use: with fdc use Diabetes mellitus complication status: without complication Qualified Code(s): E11.9 - Type 2 diabetes mellitus without complications; Z79.4 - 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 insulin Code(s): E11.9 - Type 2 diabetes mellitus without complications Status: Acute Assessment and Plan: Will start her home linagliptin and Lantus -continue Accu-Cheks and sliding scale insulin -continue sitagliptin, -continue Lantus (5) Anxiety and depression: Code(s): F41.9 - Anxiety disorder, unspecified; F32.A - Depression, unspecified Status: Acute Assessment and Plan: Continue Venlafaxine (6) Cough: Code(s): R05.9 - Cough, unspecified Status: Acute Assessment and Plan: Could be multifactorial, postnasal drip, bronchitis, CHF -01/15: chest x-ray obtained was clear -continue Tessalon Perles and guaifenesin -continue loratadine and and Flonase for nasal congestion Plan DVT prophylaxis: Status post cardiac catheterization Stress ulcer prophylaxis: Not indicated Nutrition: Heart healthy and diabetic carb consistent diet Code Status: Full code Critical Care Time Spent: 31 minutes Discussed with Cardiology, given the low blood pressures he wanted to be in ICU for 1 more day Due to a high probability of clinically significant, life threatening deterioration, the patient required my highest level of preparedness to intervene emergently and I personally spent this critical care time directly and personally managing the patient. This critical care time included obtaining a history; examining the patient; pulse oximetry; ordering and review of studies; arranging urgent treatment with development of a management plan; evaluation of patient's response to treatment; frequent reassessment; and discussions with other providers. It was exclusive of separately billable procedures and treating other patients and teaching time. Please see Assessment and Plan section and the rest of the note for further information on patient assessment and treatment This dictation may have been done utilizing a voice recognition system. Attempts have been made to correct errors. However, there may be uncorrected grammatical, spelling, and recognitions errors present. Subjective Date/time seen: 01/16/25 12:43 Interval history: Reason for consult: ST-elevation ME status PTCA/PCI with JORGE x1 mid LAD 01/16/2025: Patient seen and examined the ICU, complains of cough but states her nasal congestion is much improved. Patient has been dropping her blood pressures in the 70s but is asymptomatic. Complained of nausea all day this morning. Afebrile, adequate urine output, on 2 L nasal cannula with adequate O2 sats. Denies any chest pain, abdominal pain or vomiting at this time. She does not complain of any shortness of breath Review of Systems Review of Systems: All systems reviewed & are unremarkable except as noted in HPI and below Exam Narrative: General: Pleasant elderly female in no acute distress HEENT:? Pupils equal and reactive, sclera is clear, moist oral mucosa Neck:? Supple Respiratory:? Coarse breath sounds bilaterally, decreased at bases, adequate air entry otherwise, no wheezing Cardiac:? S1-S2 normal, regular rate and rhythm Abdomen:? Soft, nontender, nondistended, normoactive bowel sound Extremities:? Right groin site without any evidence of ecchymosis or hematoma. Bilateral pedal pulses are palpable. Trace bilateral lower extremity edema Neuro:? Patient is awake, alert, oriented, nonfocal, answers to questions appropriately and follows simple commands in all extremities Skin:? No skin lesions not Psych:? Normal mentation and affect Objective Data Vital Signs Vital Signs: Vital Signs - 24 hr 01/15/25 14:00 01/15/25 14:00 01/15/25 16:00 Temperature Pulse Rate 95 95 95 Respiratory Rate 28 H 28 H Blood Pressure 97/64 L Pulse Oximetry 92 92 Oxygen Delivery Room Air 01/15/25 16:00 01/15/25 16:00 01/15/25 18:00 Temperature 97.8 F Pulse Rate 95 96 96 Respiratory Rate 15 Blood Pressure 80/58 L Pulse Oximetry 93 Oxygen Delivery 01/15/25 18:00 01/15/25 19:00 01/15/25 19:15 Temperature Pulse Rate 96 98 101 H Respiratory Rate 15 27 H 17 Blood Pressure 92/80 L 106/72 Pulse Oximetry 96 94 94 Oxygen Delivery 01/15/25 20:00 01/15/25 20:01 01/15/25 21:00 Temperature 98.2 F Pulse Rate 98 99 Respiratory Rate 20 Blood Pressure 102/85 Pulse Oximetry 97 Oxygen Delivery Room Air 01/15/25 21:42 01/15/25 22:00 01/15/25 22:00 Temperature Pulse Rate 102 H 86 92 Respiratory Rate 20 20 Blood Pressure 107/65 86/68 L Pulse Oximetry 98 95 Oxygen Delivery 01/15/25 22:51 01/15/25 23:01 01/15/25 23:10 Temperature Pulse Rate 96 86 100 Respiratory Rate 15 12 22 H Blood Pressure 93/62 L 76/49 L 74/43 L Pulse Oximetry 94 96 92 Oxygen Delivery 01/15/25 23:12 01/15/25 23:22 01/15/25 23:35 Temperature Pulse Rate 97 95 94 Respiratory Rate 28 H 28 H 21 H Blood Pressure 85/51 L 86/51 L 73/52 L Pulse Oximetry 93 96 92 Oxygen Delivery 01/16/25 00:00 01/16/25 00:00 01/16/25 00:15 Temperature 98.5 F Pulse Rate 91 90 Respiratory Rate 21 H Blood Pressure 81/51 L Pulse Oximetry 96 Oxygen Delivery Room Air 01/16/25 00:30 01/16/25 02:00 01/16/25 02:00 Temperature Pulse Rate 89 89 89 Respiratory Rate 25 H Blood Pressure 92/57 L 105/60 Pulse Oximetry 98 Oxygen Delivery 01/16/25 04:00 01/16/25 04:00 01/16/25 04:20 Temperature 98.3 F Pulse Rate 92 92 Respiratory Rate 20 Blood Pressure 98/71 L Pulse Oximetry 96 Oxygen Delivery Room Air 01/16/25 06:00 01/16/25 06:00 01/16/25 08:00 Temperature 97.8 F Pulse Rate 89 89 92 Respiratory Rate 27 H 20 Blood Pressure 107/76 98/73 L Pulse Oximetry 95 93 Oxygen Delivery 01/16/25 08:00 01/16/25 08:00 01/16/25 09:23 Temperature Pulse Rate 97 Respiratory Rate Blood Pressure Pulse Oximetry Oxygen Delivery Room Air Room Air 01/16/25 10:00 01/16/25 10:00 01/16/25 11:35 Temperature 97.8 F Pulse Rate 91 95 Respiratory Rate 17 Blood Pressure 93/68 L 83/56 L Pulse Oximetry 100 Oxygen Delivery 01/16/25 11:48 01/16/25 11:51 Temperature Pulse Rate Respiratory Rate Blood Pressure 80/63 L 82/62 L Pulse Oximetry Oxygen Delivery Intake/Output Intake/Output: Intake & Output 01/13/25 01/14/25 01/15/25 01/16/25 23:59 23:59 23:59 23:59 Intake Total 1183.3 1070 684 Output Total 1350 100 Balance 1183.3 -280 584 Meds/Results Medications: Active Medications Generic Name Dose Route Start Last Admin Trade Name Freq PRN Reason Stop Dose Admin Apixaban 5 mg 01/15/25 10:55 01/16/25 08:41 Apixaban 5 Mg Tablet PO 5 mg Q12HR DOYLE Administration Benzonatate 100 mg 01/14/25 13:00 01/16/25 08:41 Benzonatate 100 Mg Capsule PO 100 mg TID DOYLE Administration Clopidogrel Bisulfate 75 mg 01/16/25 09:00 01/16/25 08:41 Clopidogrel Bisulfate 75 Mg Tablet PO 75 mg DAILY DOYLE Administration Dextrose 12.5 gm 01/14/25 08:08 Dextrose 50% 25 Gm/50 Ml Syringe IV PUSH PRN PRN Hypoglycemia Protocol Fluticasone Propionate 1 spray 01/15/25 21:00 01/16/25 08:41 Fluticasone Propionate 0.05% Na Spr 16 Gm Btl (*Bkc) NASAL 1 spray Q12HR DOYLE Administration Glucagon 1 mg 01/14/25 08:08 Glucagon For Inj 1 Mg Vial IM PRN PRN Hypoglycemia Protocol Glucose 15 gm 01/14/25 08:08 Glucose Oral Gel 15 Gm Of Glucse In 37.5 Gm Tube PO PRN PRN Hypoglycemia Protocol Guaifenesin 600 mg 01/14/25 21:00 01/16/25 08:41 Guaifenesin 12 Hr 600 Mg Tabcr PO 600 mg Q12HR DOYLE Administration Guaifenesin/Dextromethorphan 10 ml 01/14/25 09:03 Guaifenesin/Dextromethorphan 10 Ml Udc PO Q4H PRN Cough Dextrose 1,000 mls @ 100 mls/hr 01/14/25 08:08 Dextrose 5% 1,000 Ml IVPB PRN PRN Hypoglycemia Protocol Albumin Human 250 mls @ 62.5 mls/hr 01/16/25 12:00 01/16/25 12:16 Albumin Human 5% IV CONT 01/16/25 15:59 62.5 mls/hr .Q4H ONE Administration Insulin Aspart 2 - 4 units 01/14/25 21:00 01/15/25 21:10 Insulin Aspart (*Bkc) 100 Units/Ml SUB-Q 2 units HS DOYLE Administration Protocol Insulin Aspart 4 - 8 units 01/14/25 12:00 01/16/25 12:17 Insulin Aspart (*Bkc) 100 Units/Ml SUB-Q Not Given TIDWM DOYLE Protocol Insulin Glargine 38 units 01/15/25 21:00 01/15/25 21:09 Insulin Glargine (*Bkc) 100 Units/Ml SUB-Q 38 units HS DOYLE Administration Loratadine 10 mg 01/15/25 09:00 01/16/25 08:41 Loratadine 10 Mg Tablet PO 01/17/25 09:01 10 mg QAM DOYLE Administration Losartan Potassium 12.5 mg 01/14/25 09:00 01/14/25 09:22 Losartan Potassium 12.5 Mg Tablet PO 12.5 mg On Hold: 01/15/25 07:59 DAILY DOYLE Administration Metoprolol Succinate 12.5 mg 01/15/25 09:00 01/16/25 10:58 Metoprolol Succinate Ext Rel 12.5 Mg Tabcr PO Not Given On Hold: 01/16/25 10:36 QAM DOYLE Ondansetron HCl 4 mg 01/14/25 09:03 01/16/25 12:27 Ondansetron Inj 4 Mg/2 Ml Vial IV PUSH 4 mg Q6H PRN Administration Nausea And Vomiting Rosuvastatin Calcium 20 mg 01/15/25 21:00 01/15/25 21:09 Rosuvastatin 20 Mg Tablet PO 20 mg QHS DOYLE Administration Sitagliptin Phosphate 100 mg 01/15/25 09:00 01/16/25 08:41 Sitagliptin Phosphate 100 Mg Tablet PO 100 mg QAM [facility] Administration Venlafaxine HCl 150 mg 01/15/25 09:00 01/15/25 09:02 Venlafaxine Hcl Xr 75 Mg Cap.Er.24h PO 150 mg DAILY DOYLE Administration Radiology Results: ITS Impressions Chest/Abdomen/Pelvis CTA 01/14/25 08:21 IMPRESSION: 1. Normal caliber aorta with no dissection. No acute cardiopulmonary disease or acute intra-abdominal/pelvic process. 2. Diverticulosis. Labs Labs: Laboratory Results - last 24 hr 01/15/25 01/15/25 01/16/25 16:27 20:14 03:48 WBC 14.4 H RBC 4.46 Hgb 13.9 Hct 42.3 MCV 94.8 MCH 31.2 MCHC 32.9 RDW 12.5 Plt Count 203 MPV 10.2 Immature Gran % (Auto) 0.7 H Neut % (Auto) 71.3 Lymph % (Auto) 16.2 L [place] % (Auto) 10.0 H Eos % (Auto) 1.5 Baso % (Auto) 0.3 Lymph # (Auto) 2.32 [place] # (Auto) 1.4 H Eos # (Auto) 0.2 Baso # (Auto) 0.1 Abs Immat Gran (auto) 0.10 H Absolute Neuts (auto) 10.2 H Absolute Nucleated RBC 0.000 Nucleated RBC % 0.0 Sodium 133 L Potassium 3.4 Chloride 101 Carbon Dioxide 27 Anion Gap 5 BUN 16 Creatinine 0.95 Estim Creat Clear Calc 48 Estimated GFR 57 L Glucose 106 POC Capillary Glucose 294 H 224 H Calcium 8.3 L Phosphorus 3.9 Magnesium 1.7 Total Bilirubin 0.9 AST 121 H ALT 35 Alkaline Phosphatase 91 Total Protein 6.2 L Albumin 3.2 L 01/16/25 01/16/25 07:21 12:08 WBC RBC Hgb Hct MCV MCH MCHC RDW Plt Count MPV Immature Gran % (Auto) Neut % (Auto) Lymph % (Auto) [place] % (Auto) Eos % (Auto) Baso % (Auto) Lymph # (Auto) [place] # (Auto) Eos # (Auto) Baso # (Auto) Abs Immat Gran (auto) Absolute Neuts (auto) Absolute Nucleated RBC Nucleated RBC % Sodium Potassium Chloride Carbon Dioxide Anion Gap BUN Creatinine Estim Creat Clear Calc Estimated GFR Glucose POC Capillary Glucose 118 H 183 H Calcium Phosphorus Magnesium Total Bilirubin AST ALT Alkaline Phosphatase Total Protein Albumin Quality VTE Prophylaxis VTE prophylaxis: mechanical ordered and pharmacologic ordered
[2025-01-16 14:34] LABS: Add Urine Microscopic? YES
[2025-01-16 14:36] LABS: Appearance Urine Clear (Clear); Glucose Urine UA Trace mg/dL (Negative); Nitrate Urine Negative (Negative); Specific Grav Ur 1.025 (1.001-1.035)
[2025-01-16 14:37] LABS: Leukocyte Esterase Ur Negative LEU/UL (Negative)
[2025-01-16] MEDS: INSULIN ASPART (*BKC) 100 UNITS/ML SUB-Q ×2 (17:59→20:24)
[2025-01-16] MEDS: ROSUVASTATIN 20 MG TABLET PO (20:24)
[2025-01-16] MEDS: INSULIN GLARGINE (*BKC) 100 UNITS/ML 38 UNITS SUB-Q (20:24)
[2025-01-17] VITALS (23 sets, daily range): BP systolic 87–120; BP diastolic 43–83; PULSE 105–118; RESP 18–32; TEMP 36.6–37.2; O2SAT 89–97
[2025-01-17 03:54] LABS: Hematocrit 37.8 % (37.0-47.0); Hemoglobin 12.6 g/dL (12.0-15.0); Immature Granulocyte Percent A 0.8 % (0-0.5); Lymphocytes Absolute Auto 1.52 K/mm3 (0.9-3.2); Mean Corpuscular HGB Conc 33.3 g/dl (32-36); Mean Corpuscular Hemoglobin 31.2 pg (26-34); Mean Corpuscular Volume 93.6 fl (80-100); Nucleated Red Blood Cells Absolute Auto 0.000 K/mm3 (0.0-0.012); Nucleated Red Blood Cells Perc 0.0 % (0.0-0.2); Platelet Count Result 211 k/mm3 (150-375); Red Blood Count 4.04 M/mm3 (4.2-5.4); White Blood Count 15.3 K/mm3 (4.5-10.0)
[2025-01-17 04:15] LABS: Alanine Aminotransferase 24 U/L (6-35); Albumin Level 3.2 g/dL (3.5-5.1); Alkaline Phosphatase 82 U/L (38-126); Anion Gap 6 mmol/L (4-12); Aspartate Amino Transferase 55 U/L (14-36); Bilirubin,Total 1.1 mg/dL (0.2-1.3); Blood Urea Nitrogen 25 mg/dL (7-17); Calcium 7.9 mg/dL (8.4-10.2); Carbon Dioxide 23 mmol/L (22-30); Chloride 99 mmol/L (98-107); Estimated CRCL calculation 33 ml/min; Estimated Glomerular Filt Rate 42; Glucose 214 mg/dL (65-110); Magnesium 2.1 mg/dL (1.6-2.3); Potassium 3.9 mmol/L (3.4-5.0); Sodium 128 mmol/L (137-145); Total Protein 6.0 g/dL (6.3-8.2)
[2025-01-17] MEDS: BENZONATATE 100 MG CAPSULE PO ×3 (08:54→16:14)
[2025-01-17] MEDS: CLOPIDOGREL BISULFATE 75 MG TABLET PO (08:54)
[2025-01-17] MEDS: FLUTICASONE PROPIONATE 0.05% NA SPR 16 GM BTL (*BKC) 1 SPRAY NASAL (08:54)
[2025-01-17] MEDS: LORATADINE 10 MG TABLET PO (08:54)
[2025-01-17] MEDS: guaiFENesin 12 HR 600 MG TABCR PO ×2 (08:54→21:00)
[2025-01-17] MEDS: APIXABAN 5 MG TABLET PO ×2 (08:54→21:00)
[2025-01-17] MEDS: IPRATROPIUM 0.5 MG/ALBUTEROL SULFATE 2.5 MG AMPUL.NEB 3 ML INHALATION ×3 (09:24→20:34)
[2025-01-17] MEDS: cefTRIAXone 1 GM in SODIUM CHLORIDE 0.9% IV 50 ML 100 ML IVPB (09:25)
[2025-01-17] MEDS: DOXYCYCLINE IV 100 MG in SODIUM CHLORIDE 0.9% IV 100 ML IVPB ×2 (10:44→21:01)
[2025-01-17] MEDS: VENLAFAXINE HCL XR 75 MG CAP.ER.24H 150 MG PO (10:45)
--- NOTE | 2025-01-17 10:59 | P.PNCA_ITS ---
Progress Note: A&P Assessment and Plan (1) ST elevation (STEMI) myocardial infarction: Code(s): I21.3 - ST elevation (STEMI) myocardial infarction of unspecified site Status: Acute Assessment and Plan: Status post anterior STEMI (2) Paroxysmal atrial fibrillation: Code(s): I48.0 - Paroxysmal atrial fibrillation Status: Acute Assessment and Plan: On anticoagulation (3) Ischemic cardiomyopathy: Code(s): I25.5 - Ischemic cardiomyopathy Status: Acute Assessment and Plan: 1. The left ventricle is normal in size with severely reduced systolic function. The left ventricular ejection fraction is visually estimated to be 20-25%. The entire septum, entire anterior wall, and entire apex are severely hypokinetic. 2. The mitral valve leaflets are sclerotic. There is mild mitral regurgitation. (4) Electrolyte abnormality: Code(s): E87.8 - Other disorders of electrolyte and fluid balance, not elsewhere classified Status: Acute Assessment and Plan: Repleted (5) Acute systolic (congestive) heart failure: Code(s): I50.21 - Acute systolic (congestive) heart failure Status: Acute Assessment and Plan: Secondary to large anterior AR Plan 79-year-old woman with history of TIA, insulin-dependent diabetes, paroxysmal atrial fibrillation, and hyperlipidemia presented with chest discomfort found to have anterior STEMI for which she underwent primary PCI Anterior STEMI -status post primary PCI -she is intolerant to aspirin given that she has facial swelling with potential compromise of respiratory system. Continue Eliquis and clopidogrel Paroxysmal atrial fibrillation -previously stated eliquis was started shortly after a diagnosis of TIA -she did have a run of atrial fibrillation which would correlate with her history home Eliquis Ischemic cardiomyopathy Will resume low-dose metoprolol succinate 12.5 mg daily and up titrate as able. Had back losartan and add to her CHF regimen as able or as BP will tolerate. Okay to transfer to intermediate care unit Subjective Date/time seen: 01/17/25 10:59 Interval history: Will [age] year old who sustained an anterior STEMI Date of service 01/16/2025: Blood pressure is low but relatively asymptomatic. No chest pain, shortness of breath. Feels a little nauseated but sitting up to a chair today. Date of service 01/17/2025: Blood pressure is a little better today. Upper 90s to low 1 100s systolic. She is tachycardic. Does not complain of shortness of breath or chest pain Review of Systems Review of Systems: All systems reviewed & are unremarkable except as noted in HPI and below ENT: Reports Normal hearing present Cardiovascular: Cardiovascular: Denies chest pain Respiratory: Respiratory: Reports cough and Denies dyspnea Gastrointestinal: Gastrointestinal: Denies abdominal pain Exam Narrative: Appears stated age Const: General: comfortable and no acute distress Other: Able to lie flat HENMT: Face/Nose/Sinus: Normal nares present and no epistaxis Mouth: Yes moist mucous membranes Eyes: General: appearance normal, both eyes and all related structures Sclera: sclerae normal Neck: Neck: supple and no JVD Carotids: no bruits Resp: Effort & Inspection: normal respiratory effort Auscultation: clear to auscultation bilaterally and lung sounds not diminished Other: No chest wall tenderness Cardio: Rate: tachycardic Rhythm: regular rhythm Heart sounds: no gallops, no murmurs and no rubs GI: Inspection: non-distended Auscultation: normal bowel sounds Skin: General skin exam: normal color, rashes and/or lesions noted and no erythema Other: Warm Neuro: Cranial nerves: Yes Normal hearing present Speech: normal speech and No Abnormal speech present Sensory Exam: normal sensation Other: No obvious focal deficit or facial asymmetry Extrem: General: no edema and no pedal edema Other: Normal capillary refills Intact distal pulses. Psych: Mental Status: mental status grossly normal Affect: normal affect Objective Data Vital Signs Vital Signs: Vital Signs - 24 hr 01/16/25 11:35 01/16/25 11:48 01/16/25 11:51 Temperature Pulse Rate Respiratory Rate Blood Pressure 83/56 L 80/63 L 82/62 L Pulse Oximetry Oxygen Delivery Oxygen Flow Rate 01/16/25 12:00 01/16/25 12:00 01/16/25 12:00 Temperature 36.7 C Pulse Rate 81 93 Respiratory Rate 29 H Blood Pressure 89/64 L Pulse Oximetry 94 Oxygen Delivery Room Air Oxygen Flow Rate 01/16/25 13:43 01/16/25 14:00 01/16/25 14:00 Temperature 36.7 C Pulse Rate 77 90 97 Respiratory Rate 14 Blood Pressure 80/54 L 87/66 L Pulse Oximetry 95 Oxygen Delivery Oxygen Flow Rate 01/16/25 16:00 01/16/25 16:00 01/16/25 16:00 Temperature 36.8 C Pulse Rate 98 98 Respiratory Rate 24 H Blood Pressure 83/70 L Pulse Oximetry 97 Oxygen Delivery Room Air Oxygen Flow Rate 01/16/25 18:00 01/16/25 18:00 01/16/25 20:00 Temperature Pulse Rate 107 H 105 H 117 H Respiratory Rate 25 H Blood Pressure 108/76 Pulse Oximetry 96 Oxygen Delivery Oxygen Flow Rate 01/16/25 20:00 01/16/25 20:15 01/16/25 22:00 Temperature 36.6 C Pulse Rate 120 H 115 H Respiratory Rate 21 H 29 H Blood Pressure 118/74 121/81 Pulse Oximetry 97 97 97 Oxygen Delivery Nasal Cannula Oxygen Flow Rate 2 01/16/25 22:00 01/16/25 23:00 01/16/25 23:09 Temperature Pulse Rate 115 H Respiratory Rate Blood Pressure 81/60 L 90/61 L Pulse Oximetry Oxygen Delivery Oxygen Flow Rate 01/16/25 23:22 01/17/25 00:00 01/17/25 00:00 Temperature 36.8 C Pulse Rate 113 H 118 H Respiratory Rate 32 H Blood Pressure 88/63 L 109/73 Pulse Oximetry 94 Oxygen Delivery Oxygen Flow Rate 01/17/25 00:10 01/17/25 02:00 01/17/25 02:00 Temperature Pulse Rate 112 H 112 H Respiratory Rate 30 H Blood Pressure 89/43 L Pulse Oximetry 94 89 L Oxygen Delivery Nasal Cannula Oxygen Flow Rate 2 01/17/25 03:00 01/17/25 04:00 01/17/25 04:00 Temperature 36.7 C Pulse Rate 115 H Respiratory Rate 29 H Blood Pressure 92/63 L 95/83 L Pulse Oximetry 90 92 Oxygen Delivery Nasal Cannula Oxygen Flow Rate 2 01/17/25 04:00 01/17/25 06:00 01/17/25 06:00 Temperature Pulse Rate 111 H 110 H 110 H Respiratory Rate 32 H Blood Pressure 117/70 Pulse Oximetry 93 Oxygen Delivery Oxygen Flow Rate 01/17/25 08:00 01/17/25 08:00 01/17/25 08:00 Temperature 37.2 C Pulse Rate 110 H 113 H Respiratory Rate 29 H Blood Pressure 100/67 Pulse Oximetry 92 94 Oxygen Delivery Nasal Cannula Oxygen Flow Rate 2 01/17/25 09:24 01/17/25 10:00 01/17/25 10:00 Temperature Pulse Rate 110 H 114 H 109 H Respiratory Rate 19 29 H Blood Pressure 113/72 Pulse Oximetry 91 Oxygen Delivery Oxygen Flow Rate Intake/Output Intake/Output: Intake & Output 01/14/25 01/15/25 01/16/25 01/17/25 23:59 23:59 23:59 23:59 Intake Total 1183.3 1070 1044 880 Output Total 1350 105 Balance 1183.3 -280 939 880 Meds/Results Medications: Active Medications Generic Name Dose Route Start Last Admin Trade Name Freq PRN Reason Stop Dose Admin Albuterol/Ipratropium 3 ml 01/17/25 08:00 01/17/25 09:24 Ipratropium 0.5 Mg/Albuterol Sulfate 2.5 Mg Ampul.Neb 3 Ml INHALATION 3 ml Q6HRT DOYLE Administration Apixaban 5 mg 01/15/25 10:55 01/17/25 08:54 Apixaban 5 Mg Tablet PO 5 mg Q12HR DOYLE Administration Benzonatate 100 mg 01/14/25 13:00 01/17/25 08:54 Benzonatate 100 Mg Capsule PO 100 mg TID DOYLE Administration Clopidogrel Bisulfate 75 mg 01/16/25 09:00 01/17/25 08:54 Clopidogrel Bisulfate 75 Mg Tablet PO 75 mg DAILY DOYLE Administration Dextrose 12.5 gm 01/14/25 08:08 Dextrose 50% 25 Gm/50 Ml Syringe IV PUSH PRN PRN Hypoglycemia Protocol Fluticasone Propionate 1 spray 01/15/25 21:00 01/17/25 08:54 Fluticasone Propionate 0.05% Na Spr 16 Gm Btl (*Bkc) NASAL 1 spray Q12HR DOYLE Administration Glucagon 1 mg 01/14/25 08:08 Glucagon For Inj 1 Mg Vial IM PRN PRN Hypoglycemia Protocol Glucose 15 gm 01/14/25 08:08 Glucose Oral Gel 15 Gm Of Glucse In 37.5 Gm Tube PO PRN PRN Hypoglycemia Protocol Guaifenesin 600 mg 01/14/25 21:00 01/17/25 08:54 Guaifenesin 12 Hr 600 Mg Tabcr PO 600 mg Q12HR DOYLE Administration Guaifenesin/Dextromethorphan 10 ml 01/14/25 09:03 Guaifenesin/Dextromethorphan 10 Ml Udc PO Q4H PRN Cough Dextrose 1,000 mls @ 100 mls/hr 01/14/25 08:08 Dextrose 5% 1,000 Ml IVPB PRN PRN Hypoglycemia Protocol Ceftriaxone Sodium 1 gm/ 50 mls @ 100 mls/hr 01/17/25 09:00 01/17/25 09:25 Sodium Chloride IVPB 100 mls/hr Q24H DOYLE Administration Doxycycline Hyclate 100 mg/ 100 mls @ 100 mls/hr 01/17/25 10:00 01/17/25 10:44 Sodium Chloride IVPB 100 mls/hr Q12H DOYLE Administration Insulin Aspart 2 - 4 units 01/14/25 21:00 01/16/25 20:24 Insulin Aspart (*Bkc) 100 Units/Ml SUB-Q 2 units HS DOYLE Administration Protocol Insulin Aspart 4 - 8 units 01/14/25 12:00 01/17/25 08:33 Insulin Aspart (*Bkc) 100 Units/Ml SUB-Q Not Given TIDWM [facility] Protocol Insulin Glargine 38 units 01/15/25 21:00 01/16/25 20:24 Insulin Glargine (*Bkc) 100 Units/Ml SUB-Q 38 units HS DOYLE Administration Losartan Potassium 12.5 mg 01/14/25 09:00 01/14/25 09:22 Losartan Potassium 12.5 Mg Tablet PO 12.5 mg On Hold: 01/15/25 07:59 DAILY DOYLE Administration Metoprolol Succinate 12.5 mg 01/15/25 09:00 01/16/25 10:58 Metoprolol Succinate Ext Rel 12.5 Mg Tabcr PO Not Given On Hold: 01/16/25 10:36 QAM [facility] Ondansetron HCl 4 mg 01/14/25 09:03 01/16/25 12:27 Ondansetron Inj 4 Mg/2 Ml Vial IV PUSH 4 mg Q6H PRN Administration Nausea And Vomiting Rosuvastatin Calcium 20 mg 01/15/25 21:00 01/16/25 20:24 Rosuvastatin 20 Mg Tablet PO 20 mg QHS DOYLE Administration Sitagliptin Phosphate 100 mg 01/15/25 09:00 01/17/25 08:53 Sitagliptin Phosphate 100 Mg Tablet PO 100 mg QAM [facility] Administration Sodium Chloride 1 spray 01/16/25 14:19 Saline 0.65% Frank Soln 44 Ml Btl NASAL Q6HR PRN Congestion Venlafaxine HCl 150 mg 01/15/25 09:00 01/17/25 10:45 Venlafaxine Hcl Xr 75 Mg Cap.Er.24h PO 150 mg DAILY DOYLE Administration Radiology Results: ITS Impressions Chest/Abdomen/Pelvis CTA 01/14/25 08:21 IMPRESSION: 1. Normal caliber aorta with no dissection. No acute cardiopulmonary disease or acute intra-abdominal/pelvic process. 2. Diverticulosis. Abdomen X-Ray 01/16/25 13:09 Impression: 1. No acute abnormality. Labs Labs: Laboratory Results - last 24 hr 01/16/25 01/16/25 01/16/25 12:08 13:15 17:21 WBC RBC Hgb Hct MCV MCH MCHC RDW Plt Count MPV Immature Gran % (Auto) Neut % (Auto) Lymph % (Auto) [place] % (Auto) Eos % (Auto) Baso % (Auto) Lymph # (Auto) [place] # (Auto) Eos # (Auto) Baso # (Auto) Abs Immat Gran (auto) Absolute Neuts (auto) Absolute Nucleated RBC Nucleated RBC % Sodium Potassium Chloride Carbon Dioxide Anion Gap BUN Creatinine Estim Creat Clear Calc Estimated GFR Glucose POC Capillary Glucose 183 H 210 H Lactic Acid Calcium Phosphorus Magnesium Total Bilirubin AST ALT Alkaline Phosphatase Total Protein Albumin Urine Color Yellow Urine Appearance Clear Urine pH 5.0 Ur Specific [place] 1.025 Urine Protein Negative Urine Glucose (UA) Trace H Urine Ketones Negative Ur Blood (Man) Negative Urine Nitrate Negative Urine Bilirubin 1+ H Urine Urobilinogen 0.2 Leukocyte Esterase Rfl Negative Urine WBC 0-3 Ur Squamous Epith Cells Rare Urine Bacteria Trace 01/16/25 01/17/25 01/17/25 20:16 03:42 08:30 WBC 15.3 H RBC 4.04 L Hgb 12.6 Hct 37.8 MCV 93.6 MCH 31.2 MCHC 33.3 RDW 12.6 Plt Count 211 MPV 10.2 Immature Gran % (Auto) 0.8 H Neut % (Auto) 78.5 H Lymph % (Auto) 9.9 L [place] % (Auto) 9.7 H Eos % (Auto) 0.8 Baso % (Auto) 0.3 Lymph # (Auto) 1.52 [place] # (Auto) 1.5 H Eos # (Auto) 0.1 Baso # (Auto) 0.1 Abs Immat Gran (auto) 0.12 H Absolute Neuts (auto) 12.0 H Absolute Nucleated RBC 0.000 Nucleated RBC % 0.0 Sodium 128 L Potassium 3.9 Chloride 99 Carbon Dioxide 23 Anion Gap 6 BUN 25 H Creatinine 1.24 H Estim Creat Clear Calc 33 Estimated GFR 42 L Glucose 214 H POC Capillary Glucose 282 H 197 H Lactic Acid 1.2 Calcium 7.9 L Phosphorus 3.8 Magnesium 2.1 Total Bilirubin 1.1 AST 55 H ALT 24 Alkaline Phosphatase 82 Total Protein 6.0 L Albumin 3.2 L Urine Color Urine Appearance Urine pH Ur Specific [place] Urine Protein Urine Glucose (UA) Urine Ketones Ur Blood (Man) Urine Nitrate Urine Bilirubin Urine Urobilinogen Leukocyte Esterase Rfl Urine WBC Ur Squamous Epith Cells Urine Bacteria
[2025-01-17] MEDS: INSULIN ASPART (*BKC) 100 UNITS/ML SUB-Q ×3 (12:14→21:04)
--- NOTE | 2025-01-17 12:35 | WPDINTPN ---
Progress Note: A&P Assessment and Plan (1) ST elevation (STEMI) myocardial infarction: Code(s): I21.3 - ST elevation (STEMI) myocardial infarction of unspecified site Status: Acute Assessment and Plan: Patient presented with substernal chest pain radiating to back and left ER. She also felt some numbness in the left thumb -EKG showed ST elevation in V1 and V2 with reciprocal changes in leads 2, 3 and AVF. STEMI team was alerted, patient was taking the cardiac catheterization lab which she was found to have a 99% occlusion of mid LAD. - PCI with JORGE x1 to mid LAD with FLIP 3 flow post intervention in 0% stenosis. 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: with 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 use Diabetes mellitus complication status: without complication Qualified Code(s): E11.9 - Type 2 diabetes mellitus without complications; Z79.4 - correction (current) use of insulin Code(s): E11.9 - Type 2 diabetes mellitus without complications Status: Acute Assessment and Plan: Will start her home linagliptin and Lantus -continue Accu-Cheks and sliding scale insulin -continue sitagliptin, -continue Lantus (5) Anxiety and depression: Code(s): F41.9 - Anxiety disorder, unspecified; F32.A - Depression, unspecified Status: Acute Assessment and Plan: Continue Venlafaxine (6) Cough: Code(s): R05.9 - Cough, unspecified Status: Acute Assessment and Plan: Could be multifactorial, postnasal drip, bronchitis, CHF -01/15: chest x-ray obtained was clear -continue Tessalon Perles and guaifenesin -continue loratadine and and Flonase for nasal congestion -sputum has changed to yellow color, elevated WBC count, will start ceftriaxone azithromycin (01/17) Plan DVT prophylaxis: Status post cardiac catheterization Stress ulcer prophylaxis: Not indicated Nutrition: Heart healthy and diabetic carb consistent diet Code Status: Full code Critical Care Time Spent: 31 minutes Discussed with Cardiology, transfer patient to IMU status Due to a high probability of clinically significant, life threatening deterioration, the patient required my highest level of preparedness to intervene emergently and I personally spent this critical care time directly and personally managing the patient. This critical care time included obtaining a history; examining the patient; pulse oximetry; ordering and review of studies; arranging urgent treatment with development of a management plan; evaluation of patient's response to treatment; frequent reassessment; and discussions with other providers. It was exclusive of separately billable procedures and treating other patients and teaching time. Please see Assessment and Plan section and the rest of the note for further information on patient assessment and treatment This dictation may have been done utilizing a voice recognition system. Attempts have been made to correct errors. However, there may be uncorrected grammatical, spelling, and recognitions errors present. Subjective Date/time seen: 01/17/25 12:35 Interval history: Reason for consult: ST-elevation MT status PTCA/PCI with JORGE x1 mid LAD 01/17/2025: Patient's blood pressure is much improved this morning, overnight she had some low blood pressures but that is probably when she was sleeping. Denies any chest pain, shortness of breath, had breakfast x2. Continue to complain of coughing, yellowish sputum. Denies any nausea vomiting. Afebrile, adequate urine output, WBC count has increased to 15.3 today, lactic acid of 1.2 Review of Systems Review of Systems: All systems reviewed & are unremarkable except as noted in HPI and below Exam Narrative: General: Pleasant elderly female in no acute distress HEENT:? Pupils equal and reactive, sclera is clear, moist oral mucosa Neck:? Supple Respiratory:? Coarse breath sounds bilaterally, decreased at bases, adequate air entry otherwise, no wheezing Cardiac:? S1-S2 normal, regular rate and rhythm Abdomen:? Soft, nontender, nondistended, normoactive bowel sound Extremities:? Right groin site without any evidence of ecchymosis or hematoma. Bilateral pedal pulses are palpable. Trace bilateral lower extremity edema Neuro:? Patient is awake, alert, oriented, nonfocal, answers to questions appropriately and follows simple commands in all extremities Skin:? No skin lesions not Psych:? Normal mentation and affect Objective Data Vital Signs Vital Signs: Vital Signs - 24 hr 01/16/25 13:43 01/16/25 14:00 01/16/25 14:00 Temperature 98.0 F Pulse Rate 77 90 97 Respiratory Rate 14 Blood Pressure 80/54 L 87/66 L Pulse Oximetry 95 Oxygen Delivery Oxygen Flow Rate 01/16/25 16:00 01/16/25 16:00 01/16/25 16:00 Temperature 98.2 F Pulse Rate 98 98 Respiratory Rate 24 H Blood Pressure 83/70 L Pulse Oximetry 97 Oxygen Delivery Room Air Oxygen Flow Rate 01/16/25 18:00 01/16/25 18:00 01/16/25 20:00 Temperature Pulse Rate 107 H 105 H 117 H Respiratory Rate 25 H Blood Pressure 108/76 Pulse Oximetry 96 Oxygen Delivery Oxygen Flow Rate 01/16/25 20:00 01/16/25 20:15 01/16/25 22:00 Temperature 97.8 F Pulse Rate 120 H 115 H Respiratory Rate 21 H 29 H Blood Pressure 118/74 121/81 Pulse Oximetry 97 97 97 Oxygen Delivery Nasal Cannula Oxygen Flow Rate 2 01/16/25 22:00 01/16/25 23:00 01/16/25 23:09 Temperature Pulse Rate 115 H Respiratory Rate Blood Pressure 81/60 L 90/61 L Pulse Oximetry Oxygen Delivery Oxygen Flow Rate 01/16/25 23:22 01/17/25 00:00 01/17/25 00:00 Temperature 98.3 F Pulse Rate 113 H 118 H Respiratory Rate 32 H Blood Pressure 88/63 L 109/73 Pulse Oximetry 94 Oxygen Delivery Oxygen Flow Rate 01/17/25 00:10 01/17/25 02:00 01/17/25 02:00 Temperature Pulse Rate 112 H 112 H Respiratory Rate 30 H Blood Pressure 89/43 L Pulse Oximetry 94 89 L Oxygen Delivery Nasal Cannula Oxygen Flow Rate 2 01/17/25 03:00 01/17/25 04:00 01/17/25 04:00 Temperature 98.0 F Pulse Rate 115 H Respiratory Rate 29 H Blood Pressure 92/63 L 95/83 L Pulse Oximetry 90 92 Oxygen Delivery Nasal Cannula Oxygen Flow Rate 2 01/17/25 04:00 01/17/25 06:00 01/17/25 06:00 Temperature Pulse Rate 111 H 110 H 110 H Respiratory Rate 32 H Blood Pressure 117/70 Pulse Oximetry 93 Oxygen Delivery Oxygen Flow Rate 01/17/25 08:00 01/17/25 08:00 01/17/25 08:00 Temperature 99 F Pulse Rate 110 H 113 H Respiratory Rate 29 H Blood Pressure 100/67 Pulse Oximetry 92 94 Oxygen Delivery Nasal Cannula Oxygen Flow Rate 2 01/17/25 09:24 01/17/25 10:00 01/17/25 10:00 Temperature Pulse Rate 110 H 114 H 109 H Respiratory Rate 19 29 H Blood Pressure 113/72 Pulse Oximetry 91 Oxygen Delivery Oxygen Flow Rate 01/17/25 12:00 01/17/25 12:00 01/17/25 12:00 Temperature 97.8 F Pulse Rate 117 H 111 H Respiratory Rate 26 H Blood Pressure 120/74 Pulse Oximetry 96 96 Oxygen Delivery Nasal Cannula Oxygen Flow Rate 2 Intake/Output Intake/Output: Intake & Output 01/14/25 01/15/25 01/16/25 01/17/25 23:59 23:59 23:59 23:59 Intake Total 1183.3 1070 1044 880 Output Total 1350 105 Balance 1183.3 -280 939 880 Meds/Results Medications: Active Medications Generic Name Dose Route Start Last Admin Trade Name Freq PRN Reason Stop Dose Admin Albuterol/Ipratropium 3 ml 01/17/25 08:00 01/17/25 09:24 Ipratropium 0.5 Mg/Albuterol Sulfate 2.5 Mg Ampul.Neb 3 Ml INHALATION 3 ml Q6HRT DOYLE Administration Apixaban 5 mg 01/15/25 10:55 01/17/25 08:54 Apixaban 5 Mg Tablet PO 5 mg Q12HR DOYLE Administration Benzonatate 100 mg 01/14/25 13:00 01/17/25 12:14 Benzonatate 100 Mg Capsule PO 100 mg TID DOYLE Administration Clopidogrel Bisulfate 75 mg 01/16/25 09:00 01/17/25 08:54 Clopidogrel Bisulfate 75 Mg Tablet PO 75 mg DAILY DOYLE Administration Dextrose 12.5 gm 01/14/25 08:08 Dextrose 50% 25 Gm/50 Ml Syringe IV PUSH PRN PRN Hypoglycemia Protocol Fluticasone Propionate 1 spray 01/15/25 21:00 01/17/25 08:54 Fluticasone Propionate 0.05% Na Spr 16 Gm Btl (*Bkc) NASAL 1 spray Q12HR DOYLE Administration Glucagon 1 mg 01/14/25 08:08 Glucagon For Inj 1 Mg Vial IM PRN PRN Hypoglycemia Protocol Glucose 15 gm 01/14/25 08:08 Glucose Oral Gel 15 Gm Of Glucse In 37.5 Gm Tube PO PRN PRN Hypoglycemia Protocol Guaifenesin 600 mg 01/14/25 21:00 01/17/25 08:54 Guaifenesin 12 Hr 600 Mg Tabcr PO 600 mg Q12HR DOYLE Administration Guaifenesin/Dextromethorphan 10 ml 01/14/25 09:03 Guaifenesin/Dextromethorphan 10 Ml Udc PO Q4H PRN Cough Dextrose 1,000 mls @ 100 mls/hr 01/14/25 08:08 Dextrose 5% 1,000 Ml IVPB PRN PRN Hypoglycemia Protocol Ceftriaxone Sodium 1 gm/ 50 mls @ 100 mls/hr 01/17/25 09:00 01/17/25 09:25 Sodium Chloride IVPB 100 mls/hr Q24H DOYLE Administration Doxycycline Hyclate 100 mg/ 100 mls @ 100 mls/hr 01/17/25 10:00 01/17/25 10:44 Sodium Chloride IVPB 100 mls/hr Q12H DOYLE Administration Insulin Aspart 2 - 4 units 01/14/25 21:00 01/16/25 20:24 Insulin Aspart (*Bkc) 100 Units/Ml SUB-Q 2 units HS DOYLE Administration Protocol Insulin Aspart 4 - 8 units 01/14/25 12:00 01/17/25 12:14 Insulin Aspart (*Bkc) 100 Units/Ml SUB-Q 5 units TIDWM DOYLE Administration Protocol Insulin Glargine 38 units 01/15/25 21:00 01/16/25 20:24 Insulin Glargine (*Bkc) 100 Units/Ml SUB-Q 38 units HS DOYLE Administration Losartan Potassium 12.5 mg 01/14/25 09:00 01/14/25 09:22 Losartan Potassium 12.5 Mg Tablet PO 12.5 mg On Hold: 01/15/25 07:59 DAILY DOYLE Administration Metoprolol Succinate 12.5 mg 01/15/25 09:00 01/16/25 10:58 Metoprolol Succinate Ext Rel 12.5 Mg Tabcr PO Not Given QAM DOYLE Metoprolol Succinate 12.5 mg 01/17/25 12:25 Metoprolol Succinate Ext Rel 12.5 Mg Tabcr PO 01/17/25 12:26 ONCE ONE Ondansetron HCl 4 mg 01/14/25 09:03 01/16/25 12:27 Ondansetron Inj 4 Mg/2 Ml Vial IV PUSH 4 mg Q6H PRN Administration Nausea And Vomiting Rosuvastatin Calcium 20 mg 01/15/25 21:00 01/16/25 20:24 Rosuvastatin 20 Mg Tablet PO 20 mg QHS DOYLE Administration Sitagliptin Phosphate 100 mg 01/15/25 09:00 01/17/25 08:53 Sitagliptin Phosphate 100 Mg Tablet PO 100 mg QAM DOYLE Administration Sodium Chloride 1 spray 01/16/25 14:19 Saline 0.65% Frank Soln 44 Ml Btl NASAL Q6HR PRN Congestion Venlafaxine HCl 150 mg 01/15/25 09:00 01/17/25 10:45 Venlafaxine Hcl Xr 75 Mg Cap.Er.24h PO 150 mg DAILY DOYLE Administration Radiology Results: ITS Impressions Chest/Abdomen/Pelvis CTA 01/14/25 08:21 IMPRESSION: 1. Normal caliber aorta with no dissection. No acute cardiopulmonary disease or acute intra-abdominal/pelvic process. 2. Diverticulosis. Abdomen X-Ray 01/16/25 13:09 Impression: 1. No acute abnormality. Labs Labs: Laboratory Results - last 24 hr 01/16/25 01/16/25 01/16/25 13:15 17:21 20:16 WBC RBC Hgb Hct MCV MCH MCHC RDW Plt Count MPV Immature Gran % (Auto) Neut % (Auto) Lymph % (Auto) [place] % (Auto) Eos % (Auto) Baso % (Auto) Lymph # (Auto) [place] # (Auto) Eos # (Auto) Baso # (Auto) Abs Immat Gran (auto) Absolute Neuts (auto) Absolute Nucleated RBC Nucleated RBC % Sodium Potassium Chloride Carbon Dioxide Anion Gap BUN Creatinine Estim Creat Clear Calc Estimated GFR Glucose POC Capillary Glucose 210 H 282 H Lactic Acid Calcium Phosphorus Magnesium Total Bilirubin AST ALT Alkaline Phosphatase Total Protein Albumin Urine Color Yellow Urine Appearance Clear Urine pH 5.0 Ur Specific [place] 1.025 Urine Protein Negative Urine Glucose (UA) Trace H Urine Ketones Negative Ur Blood (Man) Negative Urine Nitrate Negative Urine Bilirubin 1+ H Urine Urobilinogen 0.2 Leukocyte Esterase Rfl Negative Urine WBC 0-3 Ur Squamous Epith Cells Rare Urine Bacteria Trace 01/17/25 01/17/25 01/17/25 03:42 08:30 12:06 WBC 15.3 H RBC 4.04 L Hgb 12.6 Hct 37.8 MCV 93.6 MCH 31.2 MCHC 33.3 RDW 12.6 Plt Count 211 MPV 10.2 Immature Gran % (Auto) 0.8 H Neut % (Auto) 78.5 H Lymph % (Auto) 9.9 L [place] % (Auto) 9.7 H Eos % (Auto) 0.8 Baso % (Auto) 0.3 Lymph # (Auto) 1.52 [place] # (Auto) 1.5 H Eos # (Auto) 0.1 Baso # (Auto) 0.1 Abs Immat Gran (auto) 0.12 H Absolute Neuts (auto) 12.0 H Absolute Nucleated RBC 0.000 Nucleated RBC % 0.0 Sodium 128 L Potassium 3.9 Chloride 99 Carbon Dioxide 23 Anion Gap 6 BUN 25 H Creatinine 1.24 H Estim Creat Clear Calc 33 Estimated GFR 42 L Glucose 214 H POC Capillary Glucose 197 H 282 H Lactic Acid 1.2 Calcium 7.9 L Phosphorus 3.8 Magnesium 2.1 Total Bilirubin 1.1 AST 55 H ALT 24 Alkaline Phosphatase 82 Total Protein 6.0 L Albumin 3.2 L Urine Color Urine Appearance Urine pH Ur Specific [place] Urine Protein Urine Glucose (UA) Urine Ketones Ur Blood (Man) Urine Nitrate Urine Bilirubin Urine Urobilinogen Leukocyte Esterase Rfl Urine WBC Ur Squamous Epith Cells Urine Bacteria Quality VTE Prophylaxis VTE prophylaxis: mechanical ordered and pharmacologic ordered
[2025-01-17] MEDS: METOPROLOL SUCCINATE EXT REL 12.5 MG TABCR PO (13:25)
[2025-01-17] MEDS: ROSUVASTATIN 20 MG TABLET PO (21:00)
[2025-01-17] MEDS: INSULIN GLARGINE (*BKC) 100 UNITS/ML 38 UNITS SUB-Q (21:02)
[2025-01-17] MEDS: SALINE 0.65% NAS SOLN 44 ML BTL 1 SPRAY NASAL (21:07)
[2025-01-18] VITALS (26 sets, daily range): BP systolic 89–137; BP diastolic 52–82; PULSE 100–114; RESP 18–27; TEMP 36.7–37.1; O2SAT 90–100
--- NOTE | 2025-01-18 | ECHO_ITS ---
Patient Info Name: Ailyn Neff Age: 79 years : 1945 Gender: Female Ht: 64 in Wt: 188 lbs BSA: 1.99 m2 HR: 108 bpm BP: 116 / 72 mmHg Technical Quality: Good Exam Date: 01/18/2025 2:20 PM Patient Status: I Admit Date: 01/14/2025 Exam Type: CA echo limited w contrast Limited two-dimensional transthoracic echocardiogram is performed. Staff Referring Physician: Lenin Fox MD Solar Photovoltaic Designer: Ericka Garcia Attending Provider: Jeronimo Mcduffie Contrast/Agitated Saline Contrast/Ag. Saline: Definity Amount: 2.00 ml Existing IV Access: Yes IV Access Condition: patent with no signs of infiltration Summary 1. Left ventricular chamber dimension is moderately enlarged. 2. Left ventricular systolic function is severely reduced, estimated at 30-35. 3. Left atrial chamber dimension is mildly enlarged. 4. There is moderate to severe mitral valve regurgitation. 5. Severe pulmonary hypertension, estimated pulmonary arterial systolic pressure is 56 mmHg. Left Ventricle Left ventricular chamber dimension is moderately enlarged. Left ventricular systolic function is severely reduced, estimated at 30-35. Right Ventricle Right ventricular chamber dimension is normal. Right ventricular systolic function is normal. Left Atria Left atrial chamber dimension is mildly enlarged. Right Atria Right atrial chamber dimension is normal. Aortic Valve The aortic valve is trileaflet. There is no aortic valve stenosis. There is no aortic valve regurgitation. Pulmonic Valve The pulmonic valve is normal. There is no pulmonic regurgitation. Mitral Valve There is moderate to severe mitral valve regurgitation. Tricuspid Valve The tricuspid valve leaflets are normal. Severe pulmonary hypertension, estimated pulmonary arterial systolic pressure is 56 mmHg. Pericardium/Pleural The pericardium appears normal. There is no pericardial effusion. Inferior Vena Cava Dilated inferior vena cava with <50% collapse upon inspiration consistent with elevated right atrial pressure, 15 mmHg. Aorta The aortic root size at the sinus of Valsalva is normal. Tricuspid Valve Name Value Normal TV Regurgitation Doppler TR Peak Velocity 320 cm/s TR Peak Gradient 41 mmHg Estimated PAP/RSVP RA Pressure 15 mmHg <=5 PA Systolic Pressure 56 mmHg <36 RV Systolic Pressure 56 mmHg <36 Ventricles Name Value Normal LV Fractional Shortening/Ejection Fraction 2D/MM LV Diastolic Volume (4C MOD) 128 ml LV EF (4C MOD) 25 % LV Diastolic Volume (2C MOD) 135 ml LV EF (2C MOD) 33 % LV Diastolic Volume (BP MOD) 137 ml 46-106 LV Diastolic Volume Index (BP MOD) 69 ml/m2 29-61 LV Systolic Volume (BP MOD) 94 ml 14-42 LV Systolic Volume Index (BP MOD) 47 ml/m2 8-24 LV EF (BP MOD) 31 % 54-74 LV Diastolic Length (4C) 8.9 cm LV Systolic Length (4C) 7.6 cm LV Stroke Volume (4C MOD) 32 ml Report Signatures
[2025-01-18] MEDS: IPRATROPIUM 0.5 MG/ALBUTEROL SULFATE 2.5 MG AMPUL.NEB 3 ML INHALATION ×4 (02:48→20:01)
[2025-01-18 04:45] LABS: Hematocrit 35.6 % (37.0-47.0); Hemoglobin 11.5 g/dL (12.0-15.0); Immature Granulocyte Percent A 0.7 % (0-0.5); Lymphocytes Absolute Auto 1.46 K/mm3 (0.9-3.2); Mean Corpuscular HGB Conc 32.3 g/dl (32-36); Mean Corpuscular Hemoglobin 30.8 pg (26-34); Mean Corpuscular Volume 95.4 fl (80-100); Nucleated Red Blood Cells Absolute Auto 0.000 K/mm3 (0.0-0.012); Nucleated Red Blood Cells Perc 0.0 % (0.0-0.2); Platelet Count Result 192 k/mm3 (150-375); Red Blood Count 3.73 M/mm3 (4.2-5.4); White Blood Count 12.2 K/mm3 (4.5-10.0)
[2025-01-18 05:08] LABS: Alanine Aminotransferase 20 U/L (6-35); Albumin Level 3.3 g/dL (3.5-5.1); Alkaline Phosphatase 84 U/L (38-126); Anion Gap 7 mmol/L (4-12); Aspartate Amino Transferase 43 U/L (14-36); Bilirubin,Total 0.7 mg/dL (0.2-1.3); Blood Urea Nitrogen 27 mg/dL (7-17); Calcium 8.1 mg/dL (8.4-10.2); Carbon Dioxide 23 mmol/L (22-30); Chloride 99 mmol/L (98-107); Estimated CRCL calculation 35 ml/min; Estimated Glomerular Filt Rate 43; Glucose 155 mg/dL (65-110); Magnesium 2.0 mg/dL (1.6-2.3); Potassium 3.3 mmol/L (3.4-5.0); Sodium 129 mmol/L (137-145); Total Protein 6.2 g/dL (6.3-8.2)
[2025-01-18] MEDS: APIXABAN 5 MG TABLET PO ×2 (08:48→20:21)
[2025-01-18] MEDS: CLOPIDOGREL BISULFATE 75 MG TABLET PO (08:48)
[2025-01-18] MEDS: METOPROLOL SUCCINATE EXT REL 12.5 MG TABCR PO (08:48)
[2025-01-18] MEDS: cefTRIAXone 1 GM in SODIUM CHLORIDE 0.9% IV 50 ML 100 ML IVPB (08:49)
[2025-01-18] MEDS: FLUTICASONE PROPIONATE 0.05% NA SPR 16 GM BTL (*BKC) 1 SPRAY NASAL ×2 (08:49→20:22)
[2025-01-18] MEDS: guaiFENesin 12 HR 600 MG TABCR PO ×2 (08:49→20:21)
[2025-01-18] MEDS: BENZONATATE 100 MG CAPSULE PO ×3 (08:49→18:50)
[2025-01-18] MEDS: VENLAFAXINE HCL XR 75 MG CAP.ER.24H 150 MG PO (08:49)
[2025-01-18] MEDS: DOXYCYCLINE IV 100 MG in SODIUM CHLORIDE 0.9% IV 100 ML IVPB (09:38)
--- NOTE | 2025-01-18 12:26 | PM.PNCARD ---
Progress Note: A&P Assessment and Plan (1) ST elevation (STEMI) myocardial infarction: Code(s): I21.3 - ST elevation (STEMI) myocardial infarction of unspecified site Status: Acute Assessment and Plan: Anterior STEMI status post primary PCI to mid LAD (2) Paroxysmal atrial fibrillation: Code(s): I48.0 - Paroxysmal atrial fibrillation Status: Acute Assessment and Plan: On anticoagulation (3) Ischemic cardiomyopathy: Code(s): I25.5 - Ischemic cardiomyopathy Status: Acute Assessment and Plan: Echo shows severely depressed LV ejection fraction of 20-25%. The entire septum, anterior wall, apex are severely hypokinetic. Mild mitral regurgitation noted. (4) Electrolyte abnormality: Code(s): E87.8 - Other disorders of electrolyte and fluid balance, not elsewhere classified Status: Acute Assessment and Plan: Hypokalemia with potassium of 3.3 Creatinine 1.2 today (5) Acute systolic (congestive) heart failure: Code(s): I50.21 - Acute systolic (congestive) heart failure Status: Acute Assessment and Plan: Secondary to large anterior SD Plan 79-year-old woman with history of TIA, insulin-dependent diabetes, paroxysmal atrial fibrillation, and hyperlipidemia presented with chest discomfort found to have anterior STEMI for which she underwent primary PCI to mid LAD Anterior STEMI -status post primary PCI -she is intolerant to aspirin given that she has facial swelling with potential compromise of respiratory system. Continue Eliquis and clopidogrel -continue statin -cardiac rehab in 1 month -check and replace electrolytes to keep potassium greater than 4 and magnesium greater than 2 Paroxysmal atrial fibrillation on chronic anticoagulation -continue Eliquis Hypotension -SBP improved to 110s mm Hg Hypokalemia with potassium 3.3 -replete potassium to keep greater than 4 Ischemic cardiomyopathy -guideline directed medical therapy as tolerated -continue metoprolol succinate 12.5 mg daily and up titrate as able -continue losartan -add empagliflozin 10 mg daily -add spironolactone 25 mg daily when renal function back to baseline -repeat TTE in 40 days post revascularization. If EF remains less than 35% she will need an ICD Subjective Date/time seen: 01/18/25 12:26 Interval history: Reason for encounter: 79-year-old female with anterior STEMI; TTE shows ischemic cardiomyopathy with LVEF 20% Interval history: She is tachycardic. SBP is improved today to the 110s. No chest pain or shortness of breath. She reports cough with clear sputum. Review of Systems Cardiovascular: Comments: Per HPI Respiratory: Comments: Per HPI Exam Narrative: General: Alert oriented x3, no acute distress Neck: Supple, no JVD Chest: Bilaterally clear to auscultation, no rales or rhonchi Cardiac: S1, S2 +, regular rate, regular rhythm, no murmurs or rubs Extremities: No pedal edema, no skin rash Neurologic: Alert and oriented x3, no focal neurological deficits Objective Data Vital Signs Vital Signs: Vital Signs - 24 hr 01/17/25 13:25 01/17/25 13:25 01/17/25 14:00 Temperature Pulse Rate 109 H 110 H 108 H Respiratory Rate Blood Pressure 110/72 Pulse Oximetry Oxygen Delivery Oxygen Flow Rate 01/17/25 14:50 01/17/25 15:01 01/17/25 16:00 Temperature 36.7 C Pulse Rate 107 H 109 H 109 H Respiratory Rate 21 H 20 24 H Blood Pressure 109/70 Pulse Oximetry 95 Oxygen Delivery Oxygen Flow Rate 01/17/25 16:00 01/17/25 16:00 01/17/25 18:00 Temperature Pulse Rate 106 H 112 H Respiratory Rate Blood Pressure Pulse Oximetry 95 Oxygen Delivery Nasal Cannula Oxygen Flow Rate 2 01/17/25 20:00 01/17/25 20:00 01/17/25 20:00 Temperature 36.6 C Pulse Rate 105 H 109 H Respiratory Rate 22 H Blood Pressure 97/58 L Pulse Oximetry 96 93 Oxygen Delivery Nasal Cannula Oxygen Flow Rate 2 01/17/25 20:34 01/17/25 20:40 01/17/25 20:40 Temperature Pulse Rate 109 H 109 H 111 H Respiratory Rate 18 18 20 Blood Pressure Pulse Oximetry 93 Oxygen Delivery Nasal Cannula Oxygen Flow Rate 2 01/17/25 22:00 01/17/25 23:52 01/17/25 23:58 Temperature 37.0 C Pulse Rate 112 H 112 H Respiratory Rate 20 Blood Pressure 87/59 L Pulse Oximetry 97 97 Oxygen Delivery Nasal Cannula Oxygen Flow Rate 2 01/18/25 00:00 01/18/25 02:00 01/18/25 02:45 Temperature Pulse Rate 106 H 104 H 111 H Respiratory Rate 18 Blood Pressure Pulse Oximetry Oxygen Delivery Oxygen Flow Rate 01/18/25 02:53 01/18/25 04:00 01/18/25 04:00 Temperature Pulse Rate 112 H 110 H Respiratory Rate 20 Blood Pressure Pulse Oximetry 92 Oxygen Delivery Nasal Cannula Oxygen Flow Rate 2 01/18/25 04:00 01/18/25 06:00 01/18/25 07:52 Temperature 37.1 C 36.7 C Pulse Rate 108 H 103 H 109 H Respiratory Rate 22 H 24 H Blood Pressure 89/52 L 137/82 Pulse Oximetry 92 97 Oxygen Delivery Oxygen Flow Rate 01/18/25 08:00 01/18/25 08:01 01/18/25 08:01 Temperature Pulse Rate 114 H Respiratory Rate 24 H Blood Pressure Pulse Oximetry 92 90 Oxygen Delivery Nasal Cannula Nasal Cannula Oxygen Flow Rate 2 2 01/18/25 08:09 01/18/25 08:48 01/18/25 11:49 Temperature 36.9 C Pulse Rate 108 H 108 H 102 H Respiratory Rate 24 H 27 H Blood Pressure 116/72 Pulse Oximetry 98 Oxygen Delivery Oxygen Flow Rate Intake/Output Intake/Output: Intake & Output 01/15/25 01/16/25 01/17/25 01/18/25 23:59 23:59 23:59 23:59 Intake Total 1070 1044 1610 540 Output Total 1350 105 200 600 Balance -679 632 0316 -60 Meds/Results Medications: Active Medications Generic Name Dose Route Start Last Admin Trade Name Freq PRN Reason Stop Dose Admin Albuterol/Ipratropium 3 ml 01/17/25 08:00 01/18/25 08:01 Ipratropium 0.5 Mg/Albuterol Sulfate 2.5 Mg Ampul.Neb 3 Ml INHALATION 3 ml Q6HRT DOYLE Administration Apixaban 5 mg 01/15/25 10:55 01/18/25 08:48 Apixaban 5 Mg Tablet PO 5 mg Q12HR DOYLE Administration Benzonatate 100 mg 01/14/25 13:00 01/18/25 08:49 Benzonatate 100 Mg Capsule PO 100 mg TID DOYLE Administration Clopidogrel Bisulfate 75 mg 01/16/25 09:00 01/18/25 08:48 Clopidogrel Bisulfate 75 Mg Tablet PO 75 mg DAILY DOYLE Administration Dextrose 12.5 gm 01/14/25 08:08 Dextrose 50% 25 Gm/50 Ml Syringe IV PUSH PRN PRN Hypoglycemia Protocol Fluticasone Propionate 1 spray 01/15/25 21:00 01/18/25 08:49 Fluticasone Propionate 0.05% Na Spr 16 Gm Btl (*Bkc) NASAL 1 spray Q12HR DOYLE Administration Glucagon 1 mg 01/14/25 08:08 Glucagon For Inj 1 Mg Vial IM PRN PRN Hypoglycemia Protocol Glucose 15 gm 01/14/25 08:08 Glucose Oral Gel 15 Gm Of Glucse In 37.5 Gm Tube PO PRN PRN Hypoglycemia Protocol Guaifenesin 600 mg 01/14/25 21:00 01/18/25 08:49 Guaifenesin 12 Hr 600 Mg Tabcr PO 600 mg Q12HR DOYLE Administration Guaifenesin/Dextromethorphan 10 ml 01/14/25 09:03 Guaifenesin/Dextromethorphan 10 Ml Udc PO Q4H PRN Cough Dextrose 1,000 mls @ 100 mls/hr 01/14/25 08:08 Dextrose 5% 1,000 Ml IVPB PRN PRN Hypoglycemia Protocol Ceftriaxone Sodium 1 gm/ 50 mls @ 100 mls/hr 01/17/25 09:00 01/18/25 08:49 Sodium Chloride IVPB 100 mls/hr Q24H DOYLE Administration Doxycycline Hyclate 100 mg/ 100 mls @ 100 mls/hr 01/17/25 10:00 01/18/25 09:38 Sodium Chloride IVPB 100 mls/hr Q12H DOYLE Administration Insulin Aspart 2 - 4 units 01/14/25 21:00 01/17/25 21:04 Insulin Aspart (*Bkc) 100 Units/Ml SUB-Q 4 units HS DOYLE Administration Protocol Insulin Aspart 4 - 8 units 01/14/25 12:00 01/18/25 08:47 Insulin Aspart (*Bkc) 100 Units/Ml SUB-Q Not Given TIDWM DOYLE Protocol Insulin Glargine 38 units 01/15/25 21:00 01/17/25 21:02 Insulin Glargine (*Bkc) 100 Units/Ml SUB-Q 38 units HS DOYLE Administration Losartan Potassium 12.5 mg 01/14/25 09:00 01/14/25 09:22 Losartan Potassium 12.5 Mg Tablet PO 12.5 mg On Hold: 01/15/25 07:59 DAILY DYOLE Administration Metoprolol Succinate 12.5 mg 01/15/25 09:00 01/18/25 08:48 Metoprolol Succinate Ext Rel 12.5 Mg Tabcr PO 12.5 mg QAM DOYLE Administration Ondansetron HCl 4 mg 01/14/25 09:03 01/16/25 12:27 Ondansetron Inj 4 Mg/2 Ml Vial IV PUSH 4 mg Q6H PRN Administration Nausea And Vomiting Rosuvastatin Calcium 20 mg 01/15/25 21:00 01/17/25 21:00 Rosuvastatin 20 Mg Tablet PO 20 mg QHS DOYLE Administration Sitagliptin Phosphate 100 mg 01/15/25 09:00 01/18/25 08:49 Sitagliptin Phosphate 100 Mg Tablet PO 100 mg QAM DOYLE Administration Sodium Chloride 1 spray 01/16/25 14:19 01/17/25 21:07 Saline 0.65% Frank Soln 44 Ml Btl NASAL 1 spray Q6HR PRN Administration Congestion Venlafaxine HCl 150 mg 01/15/25 09:00 01/18/25 08:49 Venlafaxine Hcl Xr 75 Mg Cap.Er.24h PO 150 mg DAILY DOYLE Administration Radiology Results: ITS Impressions Chest/Abdomen/Pelvis CTA 01/14/25 08:21 IMPRESSION: 1. Normal caliber aorta with no dissection. No acute cardiopulmonary disease or acute intra-abdominal/pelvic process. 2. Diverticulosis. Abdomen X-Ray 01/16/25 13:09 Impression: 1. No acute abnormality. Chest X-Ray 01/18/25 07:28 IMPRESSION: 1. Mild streaky left basilar atelectasis. Labs Labs: Laboratory Results - last 24 hr 01/17/25 01/17/25 01/18/25 16:09 20:11 04:22 WBC 12.2 H RBC 3.73 L Hgb 11.5 L Hct 35.6 L MCV 95.4 MCH 30.8 MCHC 32.3 RDW 12.4 Plt Count 192 MPV 10.7 H Immature Gran % (Auto) 0.7 H Neut % (Auto) 73.4 H Lymph % (Auto) 12.0 L [place] % (Auto) 12.5 H Eos % (Auto) 1.2 Baso % (Auto) 0.2 Lymph # (Auto) 1.46 [place] # (Auto) 1.5 H Eos # (Auto) 0.1 Baso # (Auto) 0.0 Abs Immat Gran (auto) 0.09 H Absolute Neuts (auto) 8.9 H Absolute Nucleated RBC 0.000 Nucleated RBC % 0.0 Sodium 129 L Potassium 3.3 L Chloride 99 Carbon Dioxide 23 Anion Gap 7 BUN 27 H Creatinine 1.20 H Estim Creat Clear Calc 35 Estimated GFR 43 L Glucose 155 H POC Capillary Glucose 286 H 367 H Calcium 8.1 L Phosphorus 3.6 Magnesium 2.0 Total Bilirubin 0.7 AST 43 H ALT 20 Alkaline Phosphatase 84 Total Protein 6.2 L Albumin 3.3 L 01/18/25 01/18/25 07:22 11:19 WBC RBC Hgb Hct MCV MCH MCHC RDW Plt Count MPV Immature Gran % (Auto) Neut % (Auto) Lymph % (Auto) [place] % (Auto) Eos % (Auto) Baso % (Auto) Lymph # (Auto) [place] # (Auto) Eos # (Auto) Baso # (Auto) Abs Immat Gran (auto) Absolute Neuts (auto) Absolute Nucleated RBC Nucleated RBC % Sodium Potassium Chloride Carbon Dioxide Anion Gap BUN Creatinine Estim Creat Clear Calc Estimated GFR Glucose POC Capillary Glucose 156 H 211 H Calcium Phosphorus Magnesium Total Bilirubin AST ALT Alkaline Phosphatase Total Protein Albumin
[2025-01-18] MEDS: INSULIN ASPART (*BKC) 100 UNITS/ML SUB-Q ×2 (13:51→18:45)
[2025-01-18] MEDS: POTASSIUM CHLORIDE 20 MEQ PACKET (FOR LIQUID) 40 MEQ PO ×2 (13:51→18:45)
[2025-01-18] MEDS: PERFLUTREN LIPID MICROSPHERES 1.5 ML VIAL DILUTED TO 10 ML TOTAL VOLUME IV PUSH (14:42)
--- NOTE | 2025-01-18 14:42 | IVDEFINITY ---
Prior to administration of IV Definity the patient was educated on the risks and benefits of the imaging enhancing agent including potential adverse side effects. The patient verbalized understanding. Allergies were verified. No exclusion criteria were identified and at least one of the following inclusion criteria were met: 1) physician request, 2) patient technically difficult to image (per the [place] [employer] guidelines of two or more segments not discernable within the apical view), or 3) questionable left ventricular function. ?
--- NOTE | 2025-01-18 15:50 | ECG_ITS ---
Test Date: 2025-01-18 15:58:16 Measurements Intervals [place] Rate: 102 P: 44 [place]: 191 QRS: 22 QRSD: 105 T: 15 QT: 342 QTc: 447 Interpretive Statements SINUS TACHYCARDIA ANTEROSEPTAL MYOCARDIAL INFARCTION [40+ ms Q WAVE IN V1-V4], OF INDETERMINATE AGE ABNORMAL ECG Compared to ECG 01/15/2025 12:04:03 Sinus rhythm no longer present Myocardial infarct finding still present Electronically Signed On 01-19-2025 08:05:17 CDT by Adam Brown M.D.
--- NOTE | 2025-01-18 16:36 | P.PNIM_ITS ---
Progress Note: A&P Assessment and Plan (1) ST elevation (STEMI) myocardial infarction: Code(s): I21.3 - ST elevation (STEMI) myocardial infarction of unspecified site Status: Acute Assessment and Plan: 1 stent to the LAD on 01/14/2025 by Cardiology Holding losartan due to soft blood pressures Decreased dose of Coreg Continue ticagrelor, rosuvastatin (2) Hyperlipidemia LDL goal <70: Code(s): E78.5 - Hyperlipidemia, unspecified Status: Acute Assessment and Plan: Continue statin (3) Diabetes: Qualifiers: Diabetes mellitus type: type 2 Diabetes mellitus care home insulin use: with care home use Diabetes mellitus complication status: without complication Qualified Code(s): E11.9 - Type 2 diabetes mellitus without complications; Z79.4 - retirement (current) use of insulin Code(s): E11.9 - Type 2 diabetes mellitus without complications Status: Acute Assessment and Plan: Diabetic diet Accu-Cheks a.c. HS Continue home diabetic medications SSI (4) Anxiety and depression: Code(s): F41.9 - Anxiety disorder, unspecified; F32.A - Depression, unspecified Status: Acute Assessment and Plan: Continue venlafaxine (5) Cough: Code(s): R05.9 - Cough, unspecified Status: Acute Assessment and Plan: Sputum clear Chest x-ray clear Tessalon Perles and guaifenesin Clear to Plan 79 y/o female presented with CP and patient was found to have anterior STEMI and was taken to cardiac cath had primary PCI to mid LAD, patient stats feeling much better however she does have cough, patient did have chest x-ray and it shows pulmonary edema, patient has severe cardiomyopathy with EF 20-25%, patient being gently diuresed, will monitor and plan, will have PT/OT to evaluate the patient. Subjective Date/time seen: 01/18/25 16:36 Interval history: Chest pain H&P-Narrative: 79-year-old female presents the hospital on 01/14/2025 with complaints of chest pain. She was found to have a ST-elevation myocardial infarction I was taken to the [facility] that day. She had a PICC to the LAD with 1 stent placed. Patient is allergic to aspirin she was started on ticagrelor, carvedilol, lisinopril, rosuvastatin. On 01/15/2025 around noon the patient had increased ST elevation in leads V1 and V2, Dr. Rios is concerned about a possible aneurysm will continue with current medical management at this time however if the patient complains of chest pain, has decreased oxygen saturations or decreasing her blood pressure Dr. Rios take her back to the [facility]. 79 y/o female presented with CP and patient was found to have anterior STEMI and was taken to cardiac cath had primary PCI to mid LAD, patient stats feeling much better however she does have cough, patient did have chest x-ray and it shows pulmonary edema, patient has severe cardiomyopathy with EF 20-25%, patient being gently diuresed, will monitor and plan, will have PT/OT to evaluate the patient. Review of Systems Review of Systems: 12 systems were reviewed and are negativ e except for as per HPI. All systems reviewed & are unremarkable except as noted in HPI and below Exam Narrative: Patient is comfortable, NAD HEENT: eyes are clear and none icteric LUNGS:CTA HEART: RR S1S2 ABD: BS+, Soft and nontender Lower extremities: no edema SKIN: nonjaundiced Neuro: grossly intact. Objective Data Vital Signs Vital Signs: Vital Signs - 24 hr 01/17/25 18:00 01/17/25 20:00 01/17/25 20:00 Temperature 36.6 C Pulse Rate 112 H 105 H 109 H Respiratory Rate 22 H Blood Pressure 97/58 L Pulse Oximetry 96 Oxygen Delivery Oxygen Flow Rate 01/17/25 20:00 01/17/25 20:34 01/17/25 20:40 Temperature Pulse Rate 109 H 109 H Respiratory Rate 18 18 Blood Pressure Pulse Oximetry 93 93 Oxygen Delivery Nasal Cannula Nasal Cannula Oxygen Flow Rate 2 2 01/17/25 20:40 01/17/25 22:00 01/17/25 23:52 Temperature 37.0 C Pulse Rate 111 H 112 H 112 H Respiratory Rate 20 20 Blood Pressure 87/59 L Pulse Oximetry 97 Oxygen Delivery Oxygen Flow Rate 01/17/25 23:58 01/18/25 00:00 01/18/25 02:00 Temperature Pulse Rate 106 H 104 H Respiratory Rate Blood Pressure Pulse Oximetry 97 Oxygen Delivery Nasal Cannula Oxygen Flow Rate 2 01/18/25 02:45 01/18/25 02:53 01/18/25 04:00 Temperature Pulse Rate 111 H 112 H 110 H Respiratory Rate 18 20 Blood Pressure Pulse Oximetry Oxygen Delivery Oxygen Flow Rate 01/18/25 04:00 01/18/25 04:00 01/18/25 06:00 Temperature 37.1 C Pulse Rate 108 H 103 H Respiratory Rate 22 H Blood Pressure 89/52 L Pulse Oximetry 92 92 Oxygen Delivery Nasal Cannula Oxygen Flow Rate 2 01/18/25 07:52 01/18/25 08:00 01/18/25 08:00 Temperature 36.7 C Pulse Rate 109 H 107 H Respiratory Rate 24 H Blood Pressure 137/82 Pulse Oximetry 97 92 Oxygen Delivery Nasal Cannula Oxygen Flow Rate 2 01/18/25 08:01 01/18/25 08:01 01/18/25 08:09 Temperature Pulse Rate 114 H 108 H Respiratory Rate 24 H 24 H Blood Pressure Pulse Oximetry 90 Oxygen Delivery Nasal Cannula Oxygen Flow Rate 2 01/18/25 08:48 01/18/25 10:00 01/18/25 11:49 Temperature 36.9 C Pulse Rate 108 H 103 H 102 H Respiratory Rate 27 H Blood Pressure 116/72 Pulse Oximetry 98 Oxygen Delivery Oxygen Flow Rate 01/18/25 12:00 01/18/25 12:00 01/18/25 13:25 Temperature Pulse Rate 107 H 100 Respiratory Rate 24 H Blood Pressure Pulse Oximetry 92 Oxygen Delivery Room Air Oxygen Flow Rate 01/18/25 13:32 Temperature Pulse Rate 100 Respiratory Rate 24 H Blood Pressure Pulse Oximetry Oxygen Delivery Oxygen Flow Rate Intake/Output Intake/Output: Intake & Output 01/15/25 01/16/25 01/17/25 01/18/25 23:59 23:59 23:59 23:59 Intake Total 1070 1044 1610 790 Output Total 1350 105 200 600 Balance -373 744 2075 190 Meds/Results Medications: Active Medications Generic Name Dose Route Start Last Admin Trade Name Freq PRN Reason Stop Dose Admin Albuterol/Ipratropium 3 ml 01/17/25 08:00 01/18/25 13:25 Ipratropium 0.5 Mg/Albuterol Sulfate 2.5 Mg Ampul.Neb 3 Ml INHALATION 3 ml Q6HRT DOYLE Administration Apixaban 5 mg 01/15/25 10:55 01/18/25 08:48 Apixaban 5 Mg Tablet PO 5 mg Q12HR DOYLE Administration Benzonatate 100 mg 01/14/25 13:00 01/18/25 13:52 Benzonatate 100 Mg Capsule PO 100 mg TID DOYLE Administration Clopidogrel Bisulfate 75 mg 01/16/25 09:00 01/18/25 08:48 Clopidogrel Bisulfate 75 Mg Tablet PO 75 mg DAILY DOYLE Administration Dextrose 12.5 gm 01/14/25 08:08 Dextrose 50% 25 Gm/50 Ml Syringe IV PUSH PRN PRN Hypoglycemia Protocol Empagliflozin 10 mg 01/19/25 09:00 Empagliflozin 10 Mg Tablet PO DAILY DOYLE Fluticasone Propionate 1 spray 01/15/25 21:00 01/18/25 08:49 Fluticasone Propionate 0.05% Na Spr 16 Gm Btl (*Bkc) NASAL 1 spray Q12HR DOYLE Administration Glucagon 1 mg 01/14/25 08:08 Glucagon For Inj 1 Mg Vial IM PRN PRN Hypoglycemia Protocol Glucose 15 gm 01/14/25 08:08 Glucose Oral Gel 15 Gm Of Glucse In 37.5 Gm Tube PO PRN PRN Hypoglycemia Protocol Guaifenesin 600 mg 01/14/25 21:00 01/18/25 08:49 Guaifenesin 12 Hr 600 Mg Tabcr PO 600 mg Q12HR DOYLE Administration Guaifenesin/Dextromethorphan 10 ml 01/14/25 09:03 Guaifenesin/Dextromethorphan 10 Ml Udc PO Q4H PRN Cough Dextrose 1,000 mls @ 100 mls/hr 01/14/25 08:08 Dextrose 5% 1,000 Ml IVPB PRN PRN Hypoglycemia Protocol Ceftriaxone Sodium 1 gm/ 50 mls @ 100 mls/hr 01/17/25 09:00 01/18/25 08:49 Sodium Chloride IVPB 100 mls/hr Q24H DOYLE Administration Doxycycline Hyclate 100 mg/ 100 mls @ 100 mls/hr 01/17/25 10:00 01/18/25 09:38 Sodium Chloride IVPB 100 mls/hr Q12H DOYLE Administration Insulin Aspart 2 - 4 units 01/14/25 21:00 01/17/25 21:04 Insulin Aspart (*Bkc) 100 Units/Ml SUB-Q 4 units HS DOYLE Administration Protocol Insulin Aspart 4 - 8 units 01/14/25 12:00 01/18/25 13:51 Insulin Aspart (*Bkc) 100 Units/Ml SUB-Q 4 units TIDWM DOYLE Administration Protocol Insulin Glargine 38 units 01/15/25 21:00 01/17/25 21:02 Insulin Glargine (*Bkc) 100 Units/Ml SUB-Q 38 units HS DOYLE Administration Losartan Potassium 12.5 mg 01/14/25 09:00 01/14/25 09:22 Losartan Potassium 12.5 Mg Tablet PO 12.5 mg On Hold: 01/15/25 07:59 DAILY DOYLE Administration Metoprolol Succinate 12.5 mg 01/15/25 09:00 01/18/25 08:48 Metoprolol Succinate Ext Rel 12.5 Mg Tabcr PO 12.5 mg QAM DOYLE Administration Ondansetron HCl 4 mg 01/14/25 09:03 01/16/25 12:27 Ondansetron Inj 4 Mg/2 Ml Vial IV PUSH 4 mg Q6H PRN Administration Nausea And Vomiting Rosuvastatin Calcium 20 mg 01/15/25 21:00 01/17/25 21:00 Rosuvastatin 20 Mg Tablet PO 20 mg QHS DOYLE Administration Sitagliptin Phosphate 100 mg 01/15/25 09:00 01/18/25 08:49 Sitagliptin Phosphate 100 Mg Tablet PO 100 mg QAM DOYLE Administration Sodium Chloride 1 spray 01/16/25 14:19 01/17/25 21:07 Saline 0.65% Frank Soln 44 Ml Btl NASAL 1 spray Q6HR PRN Administration Congestion Venlafaxine HCl 150 mg 01/15/25 09:00 01/18/25 08:49 Venlafaxine Hcl Xr 75 Mg Cap.Er.24h PO 150 mg DAILY DOYLE Administration Radiology Results: ITS Impressions Chest/Abdomen/Pelvis CTA 01/14/25 08:21 IMPRESSION: 1. Normal caliber aorta with no dissection. No acute cardiopulmonary disease or acute intra-abdominal/pelvic process. 2. Diverticulosis. Abdomen X-Ray 01/16/25 13:09 Impression: 1. No acute abnormality. Chest X-Ray 01/18/25 07:28 IMPRESSION: 1. Mild streaky left basilar atelectasis. Labs Labs: Laboratory Results - last 24 hr 01/17/25 01/18/25 01/18/25 20:11 04:22 07:22 WBC 12.2 H RBC 3.73 L Hgb 11.5 L Hct 35.6 L MCV 95.4 MCH 30.8 MCHC 32.3 RDW 12.4 Plt Count 192 MPV 10.7 H Immature Gran % (Auto) 0.7 H Neut % (Auto) 73.4 H Lymph % (Auto) 12.0 L [place] % (Auto) 12.5 H Eos % (Auto) 1.2 Baso % (Auto) 0.2 Lymph # (Auto) 1.46 [place] # (Auto) 1.5 H Eos # (Auto) 0.1 Baso # (Auto) 0.0 Abs Immat Gran (auto) 0.09 H Absolute Neuts (auto) 8.9 H Absolute Nucleated RBC 0.000 Nucleated RBC % 0.0 Sodium 129 L Potassium 3.3 L Chloride 99 Carbon Dioxide 23 Anion Gap 7 BUN 27 H Creatinine 1.20 H Estim Creat Clear Calc 35 Estimated GFR 43 L Glucose 155 H POC Capillary Glucose 367 H 156 H Calcium 8.1 L Phosphorus 3.6 Magnesium 2.0 Total Bilirubin 0.7 AST 43 H ALT 20 Alkaline Phosphatase 84 Total Protein 6.2 L Albumin 3.3 L 01/18/25 01/18/25 11:19 16:30 WBC RBC Hgb Hct MCV MCH MCHC RDW Plt Count MPV Immature Gran % (Auto) Neut % (Auto) Lymph % (Auto) [place] % (Auto) Eos % (Auto) Baso % (Auto) Lymph # (Auto) [place] # (Auto) Eos # (Auto) Baso # (Auto) Abs Immat Gran (auto) Absolute Neuts (auto) Absolute Nucleated RBC Nucleated RBC % Sodium Potassium Chloride Carbon Dioxide Anion Gap BUN Creatinine Estim Creat Clear Calc Estimated GFR Glucose POC Capillary Glucose 211 H 218 H Calcium Phosphorus Magnesium Total Bilirubin AST ALT Alkaline Phosphatase Total Protein Albumin Quality VTE Prophylaxis VTE prophylaxis: mechanical ordered and pharmacologic ordered
[2025-01-18] MEDS: POTASSIUM CHLORIDE 20 MEQ ER TABLET 40 MEQ PO (18:44)
[2025-01-18] MEDS: ROSUVASTATIN 20 MG TABLET PO (20:21)
[2025-01-18] MEDS: INSULIN GLARGINE (*BKC) 100 UNITS/ML 38 UNITS SUB-Q (21:22)
[2025-01-18] MEDS: DOXYCYCLINE HYCLATE 100 MG TABLET PO (22:40)
[2025-01-19] VITALS (25 sets, daily range): BP systolic 93–100; BP diastolic 50–73; PULSE 104–120; RESP 20–26; TEMP 36.4–37.1; O2SAT 91–98
[2025-01-19] MEDS: IPRATROPIUM 0.5 MG/ALBUTEROL SULFATE 2.5 MG AMPUL.NEB 3 ML INHALATION ×4 (02:17→20:12)
[2025-01-19 04:24] LABS: Hematocrit 39.3 % (37.0-47.0); Hemoglobin 12.3 g/dL (12.0-15.0); Mean Corpuscular HGB Conc 31.3 g/dl (32-36); Mean Corpuscular Hemoglobin 30.7 pg (26-34); Mean Corpuscular Volume 98.0 fl (80-100); Platelet Count Result 217 k/mm3 (150-375); Red Blood Count 4.01 M/mm3 (4.2-5.4); White Blood Count 11.1 K/mm3 (4.5-10.0)
[2025-01-19 05:03] LABS: Anion Gap 6 mmol/L (4-12); Blood Urea Nitrogen 24 mg/dL (7-17); Calcium 8.7 mg/dL (8.4-10.2); Carbon Dioxide 24 mmol/L (22-30); Chloride 101 mmol/L (98-107); Estimated CRCL calculation 38 ml/min; Estimated Glomerular Filt Rate 47; Glucose 175 mg/dL (65-110); Magnesium 2.2 mg/dL (1.6-2.3); Potassium 4.3 mmol/L (3.4-5.0); Sodium 131 mmol/L (137-145)
[2025-01-19] MEDS: VENLAFAXINE HCL XR 75 MG CAP.ER.24H 150 MG PO (08:39)
[2025-01-19] MEDS: BENZONATATE 100 MG CAPSULE PO ×3 (08:39→18:25)
[2025-01-19] MEDS: EMPAGLIFLOZIN 10 MG TABLET PO (08:39)
[2025-01-19] MEDS: CLOPIDOGREL BISULFATE 75 MG TABLET PO (08:39)
[2025-01-19] MEDS: METOPROLOL SUCCINATE EXT REL 12.5 MG TABCR PO (08:40)
[2025-01-19] MEDS: guaiFENesin 12 HR 600 MG TABCR PO ×2 (08:40→20:07)
[2025-01-19] MEDS: APIXABAN 5 MG TABLET PO ×2 (08:41→20:07)
[2025-01-19] MEDS: FLUTICASONE PROPIONATE 0.05% NA SPR 16 GM BTL (*BKC) 1 SPRAY NASAL ×2 (08:41→20:07)
[2025-01-19] MEDS: DOXYCYCLINE HYCLATE 100 MG TABLET PO ×2 (08:41→20:07)
--- NOTE | 2025-01-19 13:06 | CONS_ITS ---
Report recreated on 02/04/25. Original report signed by Drea Mccrary APRN on 01/19/25 at 13:52. Progress Note: A&P Assessment and Plan (1) ST elevation (STEMI) myocardial infarction: Code(s): I21.3 - ST elevation (STEMI) myocardial infarction of unspecified site Status: Acute Assessment and Plan: Anterior STEMI status post primary PCI to mid LAD (2) Paroxysmal atrial fibrillation: Code(s): I48.0 - Paroxysmal atrial fibrillation Status: Acute Assessment and Plan: On anticoagulation (3) Ischemic cardiomyopathy: Code(s): I25.5 - Ischemic cardiomyopathy Status: Acute Assessment and Plan: Echo shows severely depressed LV ejection fraction of 20-25%. The entire septum, anterior wall, apex are severely hypokinetic. Mild mitral regurgitation noted. (4) Electrolyte abnormality: Code(s): E87.8 - Other disorders of electrolyte and fluid balance, not elsewhere classified Status: Acute Assessment and Plan: Hypokalemia with potassium of 3.3 Creatinine 1.2 today (5) Acute systolic (congestive) heart failure: Code(s): I50.21 - Acute systolic (congestive) heart failure Status: Acute Assessment and Plan: Secondary to large anterior MT Plan 79-year-old woman with history of TIA, insulin-dependent diabetes, paroxysmal atrial fibrillation, and hyperlipidemia presented with chest discomfort found to have anterior STEMI for which she underwent primary PCI to mid LAD Anterior STEMI -status post primary PCI -she is intolerant to aspirin given that she has facial swelling with potential compromise of respiratory system. Continue Eliquis and clopidogrel -continue statin -cardiac rehab in 1 month -check and replace electrolytes to keep potassium greater than 4 and magnesium greater than 2 Paroxysmal atrial fibrillation on chronic anticoagulation -continue Eliquis Hypotension -SBP improved to 110s mm Hg Hypokalemia with potassium 3.3 -replete potassium to keep greater than 4 Ischemic cardiomyopathy -guideline directed medical therapy as tolerated -continue metoprolol succinate will increase to 25 mg and monitor BP closely -continue losartan -added empagliflozin 10 mg daily -add spironolactone 25 mg daily when renal function back to baseline -repeat TTE in 40 days post revascularization. If EF remains less than 35% she will need an ICD Had worsening SOB and cough overnight. CXR done and demonstrated moderate pulm vascular congestion. Patient unable to get IV lasix last night as no IV access. Will give PO dose and then 20 mg IV once access obtained. Will re-evluate in am. Subjective Date/time seen: 01/19/25 13:06 Interval history: Chest pain H&P-Narrative: 79-year-old female presents the hospital on 01/14/2025 with complaints of chest pain. She was found to have a ST-elevation myocardial infarction I was taken to the bottle label inspector that day. She had a PICC to the LAD with 1 stent placed. Patient is allergic to aspirin she was started on ticagrelor, carvedilol, lisinopril, rosuvastatin. On 01/15/2025 around noon the patient had increased ST elevation in leads V1 and V2, Dr. Rios is concerned about a possible aneurysm will continue with current medical management at this time however if the patient complains of chest pain, has decreased oxygen saturations or decreasing her blood pressure Dr. Rios take her back to the bottle label inspector. 79 y/o female presented with CP and patient was found to have anterior STEMI and was taken to cardiac cath had primary PCI to mid LAD, patient stats feeling much better however she does have cough, patient did have chest x-ray and it shows pulmonary edema, patient has severe cardiomyopathy with EF 20-25%, patient being gently diuresed, will monitor and plan, will have PT/OT to evaluate the patient. 01/19/25: Patient is sitting up in chair, she reports feeling as though she cannot take a deep breath in and cough. No chest pain or pressure. No dizziness or palpitations. Overnight IV lasix was ordered however, no IV access and have been unable to obtain. Review of Systems Review of Systems: All systems reviewed & are unremarkable except as noted in HPI and below Exam Narrative: General: Alert oriented x3, no acute distress Neck: Supple, no JVD Chest: crackles bilaterally Cardiac: S1, S2 +, regular rate, regular rhythm, no murmurs or rubs Extremities: No pedal edema, no skin rash Neurologic: Alert and oriented x3, no focal neurological deficits Objective Data Vital Signs Vital Signs: Vital Signs - 24 hr 01/18/25 13:25 01/18/25 13:32 01/18/25 14:00 Temperature Pulse Rate 100 100 105 H Respiratory Rate 24 H 24 H Blood Pressure Pulse Oximetry Oxygen Delivery Oxygen Flow Rate 01/18/25 16:00 01/18/25 16:00 01/18/25 16:00 Temperature 36.8 C Pulse Rate 104 H 105 H Respiratory Rate 22 H Blood Pressure 99/57 L Pulse Oximetry 100 92 Oxygen Delivery Room Air Oxygen Flow Rate 01/18/25 18:00 01/18/25 20:00 01/18/25 20:00 Temperature Pulse Rate 108 H 109 H Respiratory Rate Blood Pressure Pulse Oximetry 98 Oxygen Delivery Nasal Cannula Oxygen Flow Rate 2 01/18/25 20:01 01/18/25 20:08 01/18/25 20:09 Temperature Pulse Rate 110 H 110 H Respiratory Rate 22 H 22 H Blood Pressure Pulse Oximetry 92 Oxygen Delivery Nasal Cannula Oxygen Flow Rate 2 01/18/25 20:34 01/18/25 22:00 01/18/25 23:31 Temperature 36.7 C 36.9 C Pulse Rate 109 H 108 H 113 H Respiratory Rate 20 22 H Blood Pressure 90/55 L 91/77 L Pulse Oximetry 96 95 Oxygen Delivery Oxygen Flow Rate 01/19/25 00:00 01/19/25 00:00 01/19/25 02:00 Temperature Pulse Rate 116 H 108 H Respiratory Rate Blood Pressure Pulse Oximetry 98 Oxygen Delivery Nasal Cannula Oxygen Flow Rate 2 01/19/25 02:17 01/19/25 02:22 01/19/25 03:46 Temperature Pulse Rate 110 H 110 H 108 H Respiratory Rate 22 H 22 H 22 H Blood Pressure 93/50 L Pulse Oximetry 96 Oxygen Delivery Oxygen Flow Rate 01/19/25 04:00 01/19/25 04:00 01/19/25 06:00 Temperature Pulse Rate 106 H 114 H Respiratory Rate Blood Pressure Pulse Oximetry 96 Oxygen Delivery Nasal Cannula Oxygen Flow Rate 2 01/19/25 06:08 01/19/25 07:12 01/19/25 07:30 Temperature 36.4 C 37.0 C Pulse Rate 109 H Respiratory Rate 22 H Blood Pressure 99/65 L Pulse Oximetry 93 91 Oxygen Delivery Nasal Cannula Oxygen Flow Rate 2 01/19/25 07:30 01/19/25 07:36 01/19/25 08:00 Temperature Pulse Rate 104 H 111 H Respiratory Rate 24 H 24 H Blood Pressure Pulse Oximetry 96 Oxygen Delivery Room Air Oxygen Flow Rate 01/19/25 08:00 01/19/25 08:40 01/19/25 10:00 Temperature Pulse Rate 109 H 108 H 108 H Respiratory Rate Blood Pressure Pulse Oximetry Oxygen Delivery Oxygen Flow Rate 01/19/25 11:54 01/19/25 12:00 01/19/25 12:00 Temperature 36.4 C L Pulse Rate 112 H 104 H Respiratory Rate 26 H Blood Pressure 95/73 L Pulse Oximetry 95 96 Oxygen Delivery Room Air Oxygen Flow Rate Intake/Output Intake/Output: Intake & Output 01/16/25 01/17/25 01/18/25 01/19/25 23:59 23:59 23:59 23:59 Intake Total 1044 1610 1030 1756 Output Total 105 200 600 200 Balance 939 9517 260 9073 Meds/Results Medications: Active Medications Generic Name Dose Route Start Last Admin Trade Name Freq PRN Reason Stop Dose Admin Albuterol/Ipratropium 3 ml 01/17/25 08:00 01/19/25 07:28 Ipratropium 0.5 Mg/Albuterol Sulfate 2.5 Mg Ampul.Neb 3 Ml INHALATION 3 ml Q6HRT DOYLE Administration Apixaban 5 mg 01/15/25 10:55 01/19/25 08:41 Apixaban 5 Mg Tablet PO 5 mg Q12HR DOYLE Administration Benzonatate 100 mg 01/14/25 13:00 01/19/25 08:39 Benzonatate 100 Mg Capsule PO 100 mg TID DOYLE Administration Clopidogrel Bisulfate 75 mg 01/16/25 09:00 01/19/25 08:39 Clopidogrel Bisulfate 75 Mg Tablet PO 75 mg DAILY DOYLE Administration Dextrose 12.5 gm 01/14/25 08:08 Dextrose 50% 25 Gm/50 Ml Syringe IV PUSH PRN PRN Hypoglycemia Protocol Doxycycline Hyclate 100 mg 01/18/25 22:30 01/19/25 08:41 Doxycycline Hyclate 100 Mg Tablet PO 100 mg Q12HR DOYLE Administration Empagliflozin 10 mg 01/19/25 09:00 01/19/25 08:39 Empagliflozin 10 Mg Tablet PO 10 mg DAILY DOYLE Administration Fluticasone Propionate 1 spray 01/15/25 21:00 01/19/25 08:41 Fluticasone Propionate 0.05% Na Spr 16 Gm Btl (*Bkc) NASAL 1 spray Q12HR DOYLE Administration Furosemide 20 mg 01/19/25 17:00 Furosemide Inj 40 Mg/4 Ml Vial IV PUSH 01/19/25 17:01 ONCE ONE Furosemide 40 mg 01/20/25 09:00 Furosemide 40 Mg Tablet PO QAM DOYLE Glucagon 1 mg 01/14/25 08:08 Glucagon For Inj 1 Mg Vial IM PRN PRN Hypoglycemia Protocol Glucose 15 gm 01/14/25 08:08 Glucose Oral Gel 15 Gm Of Glucse In 37.5 Gm Tube PO PRN PRN Hypoglycemia Protocol Guaifenesin 600 mg 01/14/25 21:00 01/19/25 08:40 Guaifenesin 12 Hr 600 Mg Tabcr PO 600 mg Q12HR DOYLE Administration Guaifenesin/Dextromethorphan 10 ml 01/14/25 09:03 01/19/25 11:55 Guaifenesin/Dextromethorphan 10 Ml Udc PO 10 ml Q4H PRN Administration Cough Dextrose 1,000 mls @ 100 mls/hr 01/14/25 08:08 Dextrose 5% 1,000 Ml IVPB PRN PRN Hypoglycemia Protocol Ceftriaxone Sodium 1 gm/ 50 mls @ 100 mls/hr 01/17/25 09:00 01/18/25 08:49 Sodium Chloride IVPB 100 mls/hr Q24H DOYLE Administration Doxycycline Hyclate 100 mg/ 100 mls @ 100 mls/hr 01/17/25 10:00 01/18/25 22:51 Sodium Chloride IVPB Not Given On Hold: 01/18/25 22:28 Q12H [facility] Insulin Aspart 2 - 4 units 01/14/25 21:00 01/18/25 21:22 Insulin Aspart (*Bkc) 100 Units/Ml SUB-Q Not Given HS [facility] Protocol Insulin Aspart 4 - 8 units 01/14/25 12:00 01/19/25 12:15 Insulin Aspart (*Bkc) 100 Units/Ml SUB-Q Not Given TIDWM [facility] Protocol Insulin Glargine 38 units 01/15/25 21:00 01/18/25 21:22 Insulin Glargine (*Bkc) 100 Units/Ml SUB-Q 38 units HS DOYLE Administration Losartan Potassium 12.5 mg 01/14/25 09:00 01/14/25 09:22 Losartan Potassium 12.5 Mg Tablet PO 12.5 mg On Hold: 01/15/25 07:59 DAILY DOYLE Administration Metoprolol Succinate 12.5 mg 01/15/25 09:00 01/19/25 08:40 Metoprolol Succinate Ext Rel 12.5 Mg Tabcr PO 12.5 mg QAM DOYLE Administration Ondansetron HCl 4 mg 01/14/25 09:03 01/16/25 12:27 Ondansetron Inj 4 Mg/2 Ml Vial IV PUSH 4 mg Q6H PRN Administration Nausea And Vomiting Rosuvastatin Calcium 20 mg 01/15/25 21:00 01/18/25 20:21 Rosuvastatin 20 Mg Tablet PO 20 mg QHS DOYLE Administration Sitagliptin Phosphate 100 mg 01/15/25 09:00 01/19/25 08:40 Sitagliptin Phosphate 100 Mg Tablet PO 100 mg QAM DOYLE Administration Sodium Chloride 1 spray 01/16/25 14:19 01/17/25 21:07 Saline 0.65% Frank Soln 44 Ml Btl NASAL 1 spray Q6HR PRN Administration Congestion Venlafaxine HCl 150 mg 01/15/25 09:00 01/19/25 08:39 Venlafaxine Hcl Xr 75 Mg Cap.Er.24h PO 150 mg DAILY DOYLE Administration Radiology Results: ITS Impressions Chest/Abdomen/Pelvis CTA 01/14/25 08:21 IMPRESSION: 1. Normal caliber aorta with no dissection. No acute cardiopulmonary disease or acute intra-abdominal/pelvic process. 2. Diverticulosis. Abdomen X-Ray 01/16/25 13:09 Impression: 1. No acute abnormality. Chest X-Ray 01/18/25 16:36 Impression: CHF Labs Labs: Laboratory Results - last 24 hr 01/18/25 01/18/25 01/19/25 16:30 20:58 03:48 WBC 11.1 H RBC 4.01 L Hgb 12.3 Hct 39.3 MCV 98.0 MCH 30.7 MCHC 31.3 L RDW 12.8 Plt Count 217 MPV 10.8 H Sodium 131 L Potassium 4.3 Chloride 101 Carbon Dioxide 24 Anion Gap 6 BUN 24 H Creatinine 1.12 H Estim Creat Clear Calc 38 Estimated GFR 47 L Glucose 175 H POC Capillary Glucose 218 H 175 H Calcium 8.7 Magnesium 2.2 01/19/25 01/19/25 07:10 11:29 WBC RBC Hgb Hct MCV MCH MCHC RDW Plt Count MPV Sodium Potassium Chloride Carbon Dioxide Anion Gap BUN Creatinine Estim Creat Clear Calc Estimated GFR Glucose POC Capillary Glucose 158 H 159 H Calcium Magnesium Please be advised this is a medical document. It is intended for [id number] communication. It is written in medical language and may contain unfamiliar abbreviations or verbiage. Medical documents are intended to carry relevant information, facts as evident, and the clinical opinion of the practitioner at the time of the encounter. This report may have been done utilizing a voice recognition system. Attempts have been made to correct errors. However, there may be uncorrected grammatical, spelling, and recognition errors present. The file time of this note does not necessarily represent the time the patient was seen. Report Initialized date/time: [id number] 01/19/25 / 1307 Electronically signed by: [id number] [facility] 01/19/25 135
[2025-01-19] MEDS: FUROSEMIDE 40 MG TABLET PO (13:46)
[2025-01-19] MEDS: cefTRIAXone 1 GM in SODIUM CHLORIDE 0.9% IV 50 ML 100 ML IVPB (14:34)
--- NOTE | 2025-01-19 15:16 | P.PNIM_ITS ---
Progress Note: A&P Assessment and Plan (1) ST elevation (STEMI) myocardial infarction: Code(s): I21.3 - ST elevation (STEMI) myocardial infarction of unspecified site Status: Acute Assessment and Plan: 1 stent to the LAD on 01/14/2025 by Cardiology Holding losartan due to soft blood pressures Decreased dose of Coreg Continue ticagrelor, rosuvastatin (2) Hyperlipidemia LDL goal <70: Code(s): E78.5 - Hyperlipidemia, unspecified Status: Acute Assessment and Plan: Continue statin (3) Diabetes: Qualifiers: Diabetes mellitus type: type 2 Diabetes mellitus care home insulin use: with care home use Diabetes mellitus complication status: without complication Qualified Code(s): E11.9 - Type 2 diabetes mellitus without complications; Z79.4 - skilled nursing (current) use of insulin Code(s): E11.9 - Type 2 diabetes mellitus without complications Status: Acute Assessment and Plan: Diabetic diet Accu-Cheks a.c. HS Continue home diabetic medications SSI (4) Anxiety and depression: Code(s): F41.9 - Anxiety disorder, unspecified; F32.A - Depression, unspecified Status: Acute Assessment and Plan: Continue venlafaxine (5) Cough: Code(s): R05.9 - Cough, unspecified Status: Acute Assessment and Plan: Sputum clear Chest x-ray clear Tessalon Perles and guaifenesin Clear to Plan 79 y/o female presented with CP and patient was found to have anterior STEMI and was taken to cardiac cath had primary PCI to mid LAD, patient stats feeling much better however she does have cough, patient did have chest x-ray and it shows pulmonary edema, patient has severe cardiomyopathy with EF 20-25%, patient being gently diuresed, will monitor and plan, will have PT/OT to evaluate the patient. patient remains clinically stable, had a persistent cough last night chest x-ray showed pulmonary edema, IV lasix was ordered but did not have IV, and IV lasix was not given, this morning patient has IV now will give lasix 40mg once will monitor. Subjective Date/time seen: 01/19/25 15:16 Interval history: Chest pain H&P-Narrative: 79-year-old female presents the hospital on 01/14/2025 with complaints of chest pain. She was found to have a ST-elevation myocardial infarction I was taken to the laborer laboratory that day. She had a PICC to the LAD with 1 stent placed. Patient is allergic to aspirin she was started on ticagrelor, carvedilol, lisinopril, rosuvastatin. On 01/15/2025 around noon the patient had increased ST elevation in leads V1 and V2, Dr. Rios is concerned about a possible aneurysm will continue with current medical management at this time however if the patient complains of chest pain, has decreased oxygen saturations or decreasing her blood pressure Dr. Rios take her back to the laborer laboratory. 79 y/o female presented with CP and patient was found to have anterior STEMI and was taken to cardiac cath had primary PCI to mid LAD, patient stats feeling much better however she does have cough, patient did have chest x-ray and it shows pulmonary edema, patient has severe cardiomyopathy with EF 20-25%, patient being gently diuresed, will monitor and plan, will have PT/OT to evaluate the patient. patient remains clinically stable, had a persistent cough last night chest x-ray showed pulmonary edema, IV lasix was ordered but did not have IV, and IV lasix was not given, this morning patient has IV now will give lasix 40mg once will monitor. Review of Systems Review of Systems: 12 systems were reviewed and are negativ e except for as per HPI. All systems reviewed & are unremarkable except as noted in HPI and below Exam Narrative: Patient is comfortable, NAD HEENT: eyes are clear and none icteric LUNGS:CTA HEART: RR S1S2 ABD: BS+, Soft and nontender Lower extremities: no edema SKIN: nonjaundiced Neuro: grossly intact. Objective Data Vital Signs Vital Signs: Vital Signs - 24 hr 01/18/25 16:00 01/18/25 16:00 01/18/25 16:00 Temperature 36.8 C Pulse Rate 104 H 105 H Respiratory Rate 22 H Blood Pressure 99/57 L Pulse Oximetry 100 92 Oxygen Delivery Room Air Oxygen Flow Rate 01/18/25 18:00 01/18/25 20:00 01/18/25 20:00 Temperature Pulse Rate 108 H 109 H Respiratory Rate Blood Pressure Pulse Oximetry 98 Oxygen Delivery Nasal Cannula Oxygen Flow Rate 2 01/18/25 20:01 01/18/25 20:08 01/18/25 20:09 Temperature Pulse Rate 110 H 110 H Respiratory Rate 22 H 22 H Blood Pressure Pulse Oximetry 92 Oxygen Delivery Nasal Cannula Oxygen Flow Rate 2 01/18/25 20:34 01/18/25 22:00 01/18/25 23:31 Temperature 36.7 C 36.9 C Pulse Rate 109 H 108 H 113 H Respiratory Rate 20 22 H Blood Pressure 90/55 L 91/77 L Pulse Oximetry 96 95 Oxygen Delivery Oxygen Flow Rate 01/19/25 00:00 01/19/25 00:00 01/19/25 02:00 Temperature Pulse Rate 116 H 108 H Respiratory Rate Blood Pressure Pulse Oximetry 98 Oxygen Delivery Nasal Cannula Oxygen Flow Rate 2 01/19/25 02:17 01/19/25 02:22 01/19/25 03:46 Temperature Pulse Rate 110 H 110 H 108 H Respiratory Rate 22 H 22 H 22 H Blood Pressure 93/50 L Pulse Oximetry 96 Oxygen Delivery Oxygen Flow Rate 01/19/25 04:00 01/19/25 04:00 01/19/25 06:00 Temperature Pulse Rate 106 H 114 H Respiratory Rate Blood Pressure Pulse Oximetry 96 Oxygen Delivery Nasal Cannula Oxygen Flow Rate 2 01/19/25 06:08 01/19/25 07:12 01/19/25 07:30 Temperature 36.4 C 37.0 C Pulse Rate 109 H Respiratory Rate 22 H Blood Pressure 99/65 L Pulse Oximetry 93 91 Oxygen Delivery Nasal Cannula Oxygen Flow Rate 2 01/19/25 07:30 01/19/25 07:36 01/19/25 08:00 Temperature Pulse Rate 104 H 111 H Respiratory Rate 24 H 24 H Blood Pressure Pulse Oximetry 96 Oxygen Delivery Room Air Oxygen Flow Rate 01/19/25 08:00 01/19/25 08:40 01/19/25 10:00 Temperature Pulse Rate 109 H 108 H 108 H Respiratory Rate Blood Pressure Pulse Oximetry Oxygen Delivery Oxygen Flow Rate 01/19/25 11:54 01/19/25 12:00 01/19/25 12:00 Temperature 36.4 C L Pulse Rate 112 H 104 H Respiratory Rate 26 H Blood Pressure 95/73 L Pulse Oximetry 95 96 Oxygen Delivery Room Air Oxygen Flow Rate 01/19/25 12:00 01/19/25 14:00 01/19/25 14:23 Temperature Pulse Rate 109 H 107 H 106 H Respiratory Rate 20 Blood Pressure Pulse Oximetry Oxygen Delivery Oxygen Flow Rate Intake/Output Intake/Output: Intake & Output 01/16/25 01/17/25 01/18/25 01/19/25 23:59 23:59 23:59 23:59 Intake Total 1044 1610 1080 1756 Output Total 105 200 600 200 Balance 939 7677 504 8524 Meds/Results Medications: Active Medications Generic Name Dose Route Start Last Admin Trade Name Freq PRN Reason Stop Dose Admin Albuterol/Ipratropium 3 ml 01/17/25 08:00 01/19/25 14:20 Ipratropium 0.5 Mg/Albuterol Sulfate 2.5 Mg Ampul.Neb 3 Ml INHALATION 3 ml Q6HRT DOYLE Administration Apixaban 5 mg 01/15/25 10:55 01/19/25 08:41 Apixaban 5 Mg Tablet PO 5 mg Q12HR DOYLE Administration Benzonatate 100 mg 01/14/25 13:00 01/19/25 13:46 Benzonatate 100 Mg Capsule PO 100 mg TID DOYLE Administration Clopidogrel Bisulfate 75 mg 01/16/25 09:00 01/19/25 08:39 Clopidogrel Bisulfate 75 Mg Tablet PO 75 mg DAILY DOYLE Administration Dextrose 12.5 gm 01/14/25 08:08 Dextrose 50% 25 Gm/50 Ml Syringe IV PUSH PRN PRN Hypoglycemia Protocol Doxycycline Hyclate 100 mg 01/18/25 22:30 01/19/25 08:41 Doxycycline Hyclate 100 Mg Tablet PO 100 mg Q12HR DOYLE Administration Empagliflozin 10 mg 01/19/25 09:00 01/19/25 08:39 Empagliflozin 10 Mg Tablet PO 10 mg DAILY DOYLE Administration Fluticasone Propionate 1 spray 01/15/25 21:00 01/19/25 08:41 Fluticasone Propionate 0.05% Na Spr 16 Gm Btl (*Bkc) NASAL 1 spray Q12HR DOYLE Administration Furosemide 20 mg 01/19/25 17:00 Furosemide Inj 40 Mg/4 Ml Vial IV PUSH 01/19/25 17:01 ONCE ONE Glucagon 1 mg 01/14/25 08:08 Glucagon For Inj 1 Mg Vial IM PRN PRN Hypoglycemia Protocol Glucose 15 gm 01/14/25 08:08 Glucose Oral Gel 15 Gm Of Glucse In 37.5 Gm Tube PO PRN PRN Hypoglycemia Protocol Guaifenesin 600 mg 01/14/25 21:00 01/19/25 08:40 Guaifenesin 12 Hr 600 Mg Tabcr PO 600 mg Q12HR DOYLE Administration Guaifenesin/Dextromethorphan 10 ml 01/14/25 09:03 01/19/25 11:55 Guaifenesin/Dextromethorphan 10 Ml Udc PO 10 ml Q4H PRN Administration Cough Dextrose 1,000 mls @ 100 mls/hr 01/14/25 08:08 Dextrose 5% 1,000 Ml IVPB PRN PRN Hypoglycemia Protocol Ceftriaxone Sodium 1 gm/ 50 mls @ 100 mls/hr 01/17/25 09:00 01/19/25 14:34 Sodium Chloride IVPB 01/19/25 16:00 100 mls/hr Q24H DOYLE Administration Doxycycline Hyclate 100 mg/ 100 mls @ 100 mls/hr 01/17/25 10:00 01/18/25 22:51 Sodium Chloride IVPB Not Given On Hold: 01/18/25 22:28 Q12H DOYLE Ceftriaxone Sodium 1 gm/ 50 mls @ 100 mls/hr 01/19/25 14:00 01/19/25 14:37 Sodium Chloride IVPB Not Given Q24H [facility]YLE Insulin Aspart 2 - 4 units 01/14/25 21:00 01/18/25 21:22 Insulin Aspart (*Bkc) 100 Units/Ml SUB-Q Not Given HS [facility] Protocol Insulin Aspart 4 - 8 units 01/14/25 12:00 01/19/25 13:43 Insulin Aspart (*Bkc) 100 Units/Ml SUB-Q Not Given TIDWM [facility] Protocol Insulin Glargine 38 units 01/15/25 21:00 01/18/25 21:22 Insulin Glargine (*Bkc) 100 Units/Ml SUB-Q 38 units HS DOYLE Administration Losartan Potassium 12.5 mg 01/14/25 09:00 01/14/25 09:22 Losartan Potassium 12.5 Mg Tablet PO 12.5 mg On Hold: 01/15/25 07:59 DAILY DOYLE Administration Metoprolol Succinate 25 mg 01/20/25 09:00 Metoprolol Succinate Ext Rel 25 Mg Tabcr PO QAM DOYLE Ondansetron HCl 4 mg 01/14/25 09:03 01/16/25 12:27 Ondansetron Inj 4 Mg/2 Ml Vial IV PUSH 4 mg Q6H PRN Administration Nausea And Vomiting Rosuvastatin Calcium 20 mg 01/15/25 21:00 01/18/25 20:21 Rosuvastatin 20 Mg Tablet PO 20 mg QHS DOYLE Administration Sitagliptin Phosphate 100 mg 01/15/25 09:00 01/19/25 08:40 Sitagliptin Phosphate 100 Mg Tablet PO 100 mg QAM [facility] Administration Sodium Chloride 1 spray 01/16/25 14:19 01/17/25 21:07 Saline 0.65% Frank Soln 44 Ml Btl NASAL 1 spray Q6HR PRN Administration Congestion Venlafaxine HCl 150 mg 01/15/25 09:00 01/19/25 08:39 Venlafaxine Hcl Xr 75 Mg Cap.Er.24h PO 150 mg DAILY DOYLE Administration Radiology Results: ITS Impressions Chest/Abdomen/Pelvis CTA 01/14/25 08:21 IMPRESSION: 1. Normal caliber aorta with no dissection. No acute cardiopulmonary disease or acute intra-abdominal/pelvic process. 2. Diverticulosis. Abdomen X-Ray 01/16/25 13:09 Impression: 1. No acute abnormality. Chest X-Ray 01/18/25 16:36 Impression: CHF Labs Labs: Laboratory Results - last 24 hr 01/18/25 01/18/25 01/19/25 16:30 20:58 03:48 WBC 11.1 H RBC 4.01 L Hgb 12.3 Hct 39.3 MCV 98.0 MCH 30.7 MCHC 31.3 L RDW 12.8 Plt Count 217 MPV 10.8 H Sodium 131 L Potassium 4.3 Chloride 101 Carbon Dioxide 24 Anion Gap 6 BUN 24 H Creatinine 1.12 H Estim Creat Clear Calc 38 Estimated GFR 47 L Glucose 175 H POC Capillary Glucose 218 H 175 H Calcium 8.7 Magnesium 2.2 01/19/25 01/19/25 07:10 11:29 WBC RBC Hgb Hct MCV MCH MCHC RDW Plt Count MPV Sodium Potassium Chloride Carbon Dioxide Anion Gap BUN Creatinine Estim Creat Clear Calc Estimated GFR Glucose POC Capillary Glucose 158 H 159 H Calcium Magnesium Quality VTE Prophylaxis VTE prophylaxis: mechanical ordered and pharmacologic ordered
[2025-01-19] MEDS: FUROSEMIDE INJ 40 MG/4 ML VIAL 20 MG IV PUSH (18:24)
[2025-01-19] MEDS: ROSUVASTATIN 20 MG TABLET PO (20:07)
[2025-01-19] MEDS: INSULIN GLARGINE (*BKC) 100 UNITS/ML 38 UNITS SUB-Q (20:08)
[2025-01-19 23:47] LABS: Influenza A QL RT-PCR Negative (Negative); Influenza B QL RT-PCR Negative (Negative); RSV RNA, RT-PCR Negative (Negative); SARS-CoV-2 RNA PCR Negative (Negative)
[2025-01-20] VITALS (31 sets, daily range): BP systolic 95–114; BP diastolic 50–78; PULSE 87–103; RESP 20–24; TEMP 36.4–37; O2SAT 87–100
--- NOTE | 2025-01-20 | ECHO_ITS ---
Patient Info Name: Ailyn Neff Age: 79 years : 1945 Gender: Female Ht: 64 in Wt: 180 lbs BSA: 1.95 m2 HR: 97 bpm BP: 103 / 59 mmHg Heart Rhythm: Sinus Rhythm Technical Quality: Good Exam Date: 01/20/2025 1:06 PM Patient Status: I Admit Date: 01/14/2025 Exam Type: CA echo limited w contrast Limited two-dimensional transthoracic echocardiogram is performed with contrast. Staff Referring Physician: Radha Ruiz Dope Heater: Danyel Ortez III Attending Provider: Jeronimo Mcduffie Contrast/Agitated Saline Contrast/Ag. Saline: Definity Amount: 2.00 ml Administered By: Danyel Ortez III Existing IV Access: Yes IV Access Condition: patent with no signs of infiltration Summary 1. Left ventricular chamber dimension is mildly enlarged. 2. Left ventricular systolic function is severely reduced, estimated at 25-30. 3. There is mildly increased left ventricular wall thickness. 4. The anteroseptal wall, apical septum, apical cap, mid anterior wall, and mid inferoseptal are akinetic. 5. The inferior wall, inferolateral wall, basal anterior wall, and basal inferoseptal are hypokinetic. 6. 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 Left Ventricle Left ventricular chamber dimension is mildly enlarged. Left ventricular systolic function is severely reduced, estimated at 25-30. There is mildly increased left ventricular wall thickness. The anteroseptal wall, apical septum, apical cap, mid anterior wall, and mid inferoseptal are akinetic. The inferior wall, inferolateral wall, basal anterior wall, and basal inferoseptal are hypokinetic. All other ro appear normal. Right Ventricle Right ventricular chamber dimension is normal. Right ventricular systolic function is normal. Ventricles Name Value Normal LV Fractional Shortening/Ejection Fraction 2D/MM LV Diastolic Volume (4C MOD) 119 ml LV EF (4C MOD) 26 % LV Diastolic Volume (2C MOD) 122 ml LV EF (2C MOD) 23 % LV Diastolic Volume (BP MOD) 128 ml 46-106 LV Diastolic Volume Index (BP MOD) 65 ml/m2 29-61 LV Systolic Volume (BP MOD) 93 ml 14-42 LV Systolic Volume Index (BP MOD) 48 ml/m2 8-24 LV EF (BP MOD) 27 % 54-74 LV Diastolic Length (4C) 7.5 cm LV Systolic Length (4C) 7.5 cm LV Stroke Volume (4C MOD) 31 ml Wall Motion Scoring Wall Motion Scoring Index: 2.29 Report Signatures
[2025-01-20] MEDS: IPRATROPIUM 0.5 MG/ALBUTEROL SULFATE 2.5 MG AMPUL.NEB 3 ML INHALATION ×4 (01:40→20:35)
[2025-01-20 04:13] LABS: Hematocrit 37.0 % (37.0-47.0); Hemoglobin 12.1 g/dL (12.0-15.0); Mean Corpuscular HGB Conc 32.7 g/dl (32-36); Mean Corpuscular Hemoglobin 30.9 pg (26-34); Mean Corpuscular Volume 94.6 fl (80-100); Platelet Count Result 260 k/mm3 (150-375); Red Blood Count 3.91 M/mm3 (4.2-5.4); White Blood Count 10.4 K/mm3 (4.5-10.0)
[2025-01-20 04:28] LABS: Anion Gap 6 mmol/L (4-12); Blood Urea Nitrogen 25 mg/dL (7-17); Calcium 8.4 mg/dL (8.4-10.2); Carbon Dioxide 30 mmol/L (22-30); Chloride 99 mmol/L (98-107); Estimated CRCL calculation 31 ml/min; Estimated Glomerular Filt Rate 38; Glucose 83 mg/dL (65-110); Magnesium 1.8 mg/dL (1.6-2.3); Potassium 3.1 mmol/L (3.4-5.0); Sodium 135 mmol/L (137-145)
[2025-01-20] MEDS: POTASSIUM CHLORIDE 20 MEQ PACKET (FOR LIQUID) 40 MEQ PO (09:19)
[2025-01-20] MEDS: guaiFENesin 12 HR 600 MG TABCR PO ×2 (09:20→20:52)
[2025-01-20] MEDS: DOXYCYCLINE HYCLATE 100 MG TABLET PO ×2 (09:21→20:53)
[2025-01-20] MEDS: VENLAFAXINE HCL XR 75 MG CAP.ER.24H 150 MG PO (09:22)
[2025-01-20] MEDS: EMPAGLIFLOZIN 10 MG TABLET PO (09:22)
[2025-01-20] MEDS: BENZONATATE 100 MG CAPSULE PO ×3 (09:22→16:27)
[2025-01-20] MEDS: APIXABAN 5 MG TABLET PO ×2 (09:22→20:52)
[2025-01-20] MEDS: CLOPIDOGREL BISULFATE 75 MG TABLET PO (09:22)
[2025-01-20] MEDS: METOPROLOL SUCCINATE EXT REL 25 MG TABCR PO (09:22)
[2025-01-20] MEDS: BUDESONIDE RESPULE NEB 0.5 MG/2 ML AMP INHALATION ×2 (09:59→20:35)
--- NOTE | 2025-01-20 10:41 | PN_ITS ---
Report recreated on 02/04/25. Original report was signed by Drea Mccrary APRN on 01/20/25 at 1046. Progress Note: A&P Assessment and Plan (1) ST elevation (STEMI) myocardial infarction: Code(s): I21.3 - ST elevation (STEMI) myocardial infarction of unspecified site Status: Acute Assessment and Plan: Anterior STEMI status post primary PCI to mid LAD (2) Paroxysmal atrial fibrillation: Code(s): I48.0 - Paroxysmal atrial fibrillation Status: Acute Assessment and Plan: On anticoagulation (3) Ischemic cardiomyopathy: Code(s): I25.5 - Ischemic cardiomyopathy Status: Acute Assessment and Plan: Echo shows severely depressed LV ejection fraction of 20-25%. The entire septum, anterior wall, apex are severely hypokinetic. Mild mitral regurgitation noted. (4) Electrolyte abnormality: Code(s): E87.8 - Other disorders of electrolyte and fluid balance, not elsewhere classified Status: Acute Assessment and Plan: Hypokalemia with potassium of 3.3 Creatinine 1.2 today (5) Acute systolic (congestive) heart failure: Code(s): I50.21 - Acute systolic (congestive) heart failure Status: Acute Assessment and Plan: Secondary to large anterior OH Plan 79-year-old woman with history of TIA, insulin-dependent diabetes, paroxysmal atrial fibrillation, and hyperlipidemia presented with chest discomfort found to have anterior STEMI for which she underwent primary PCI to mid LAD Anterior STEMI -status post primary PCI -she is intolerant to aspirin given that she has facial swelling with potential compromise of respiratory system. Continue Eliquis and clopidogrel -continue statin -cardiac rehab in 1 month -will do f/u limited echo to re-evaluate EF Paroxysmal atrial fibrillation on chronic anticoagulation -continue Eliquis Hypotension -SBP improved to 110s mm Hg Hypokalemia with potassium 3.1 -replete potassium to keep greater than 4 Ischemic cardiomyopathy -guideline directed medical therapy as tolerated -continue metoprolol succinate increased to 25 mg and monitor BP closely -continue losartan -added empagliflozin 10 mg daily -add spironolactone 25 mg daily when renal function back to baseline -will do f/u limited echo today -repeat TTE in 40 days post revascularization. If EF remains less than 35% she will need an ICD Renal insufficiency -CR up to 1.35 she s/p IV diuresis, will hold lasix today as good UO overnight and improvement in pulmonary vascular congestion on CXR Persistent cough -CXR today suggestive of bronchiolitis -management as per primary team Will plan limited echo to evaluate EF-if less than 35% will consider lifevest Will hold lasix today d/t worsening renal function Subjective Date/time seen: 01/20/25 10:41 Interval history: Chest pain H&P-Narrative: 79-year-old female presents the hospital on 01/14/2025 with complaints of chest pain. She was found to have a ST-elevation myocardial infarction [place]. She had a PICC to the LAD with 1 stent placed. Patient is allergic to aspirin she was started on ticagrelor, carvedilol, lisinopril, rosuvastatin. On 01/15/2025 around noon the patient had increased ST elevation in leads V1 and V2, Dr. Rios is concerned about a possible aneurysm will continue with current medical management at this time however if the patient complains of chest pain, has decreased oxygen saturations or decreasing her blood pressure Dr. Rios take her back [place]. 79 y/o female presented with CP and patient was found to have anterior STEMI and was taken to cardiac cath had primary PCI to mid LAD, patient stats feeling much better however she does have cough, patient did have chest x-ray and it shows pulmonary edema, patient has severe cardiomyopathy with EF 20-25%, patient being gently diuresed, will monitor and plan, will have PT/OT to evaluate the patient. 01/19/25: Patient is sitting up in chair, she reports feeling as though she cannot take a deep breath in and cough. No chest pain or pressure. No dizziness or palpitations. Overnight IV lasix was ordered however, no IV access and have been unable to obtain. 01/20/25: Patient sitting up in bed. She continues to experience cough with little sputum production. No chest pain or pressure. No new shortness of breath. No dizziness or palpitations. Review of Systems Review of Systems: All systems reviewed & are unremarkable except as noted in HPI and below Exam Narrative: General: Alert oriented x3, no acute distress Neck: Supple, no JVD Chest: coarse Cardiac: S1, S2 +, regular rate, regular rhythm, no murmurs or rubs Extremities: No pedal edema, no skin rash Neurologic: Alert and oriented x3, no focal neurological deficits Objective Data Vital Signs Vital Signs: Vital Signs - 24 hr 01/19/25 11:54 01/19/25 12:00 01/19/25 12:00 Temperature 36.4 C L Pulse Rate 112 H 104 H Respiratory Rate 26 H Blood Pressure 95/73 L Pulse Oximetry 95 96 Oxygen Delivery Room Air Oxygen Flow Rate Fraction of Inspired Oxygen 01/19/25 12:00 01/19/25 14:00 01/19/25 14:23 Temperature Pulse Rate 109 H 107 H 106 H Respiratory Rate 20 Blood Pressure Pulse Oximetry Oxygen Delivery Oxygen Flow Rate Fraction of Inspired Oxygen 01/19/25 15:51 01/19/25 16:00 01/19/25 16:00 Temperature 37.1 C Pulse Rate 108 H 107 H Respiratory Rate 26 H Blood Pressure 95/68 L Pulse Oximetry 97 96 Oxygen Delivery Room Air Oxygen Flow Rate Fraction of Inspired Oxygen 01/19/25 18:00 01/19/25 20:00 01/19/25 20:00 Temperature 36.8 C Pulse Rate 112 H 106 H Respiratory Rate 22 H Blood Pressure 100/70 Pulse Oximetry 97 95 Oxygen Delivery Nasal Cannula Oxygen Flow Rate 2 Fraction of Inspired Oxygen 01/19/25 20:00 01/19/25 20:12 01/19/25 20:14 Temperature Pulse Rate 106 H 120 H 120 H Respiratory Rate 20 20 Blood Pressure Pulse Oximetry 95 Oxygen Delivery Nasal Cannula Oxygen Flow Rate 2 Fraction of Inspired Oxygen 28 01/19/25 22:00 01/20/25 00:00 01/20/25 00:00 Temperature Pulse Rate 106 H 101 H Respiratory Rate Blood Pressure Pulse Oximetry 95 Oxygen Delivery Nasal Cannula Oxygen Flow Rate 2 Fraction of Inspired Oxygen 01/20/25 00:13 01/20/25 01:41 01/20/25 01:50 Temperature 37.0 C Pulse Rate 99 99 100 Respiratory Rate 21 H 20 20 Blood Pressure 95/50 L Pulse Oximetry 98 Oxygen Delivery Oxygen Flow Rate Fraction of Inspired Oxygen 01/20/25 02:00 01/20/25 04:00 01/20/25 04:00 Temperature Pulse Rate 98 95 Respiratory Rate Blood Pressure Pulse Oximetry 97 Oxygen Delivery Nasal Cannula Oxygen Flow Rate 2 Fraction of Inspired Oxygen 01/20/25 04:21 01/20/25 06:00 01/20/25 07:19 Temperature 36.6 C 36.6 C Pulse Rate 98 98 96 Respiratory Rate 22 H 24 H Blood Pressure 95/58 L 95/78 L Pulse Oximetry 96 98 Oxygen Delivery Oxygen Flow Rate Fraction of Inspired Oxygen 01/20/25 08:00 01/20/25 08:00 01/20/25 08:12 Temperature Pulse Rate 96 Respiratory Rate Blood Pressure Pulse Oximetry 98 94 Oxygen Delivery Nasal Cannula Nasal Cannula Oxygen Flow Rate 2 2 Fraction of Inspired Oxygen 01/20/25 08:12 01/20/25 08:20 01/20/25 08:27 Temperature Pulse Rate 96 100 Respiratory Rate 20 20 Blood Pressure Pulse Oximetry 87 L Oxygen Delivery Nasal Cannula Oxygen Flow Rate 1 Fraction of Inspired Oxygen 01/20/25 08:30 01/20/25 09:22 01/20/25 09:59 Temperature Pulse Rate 103 H 99 Respiratory Rate 20 Blood Pressure Pulse Oximetry 93 Oxygen Delivery Nasal Cannula Oxygen Flow Rate 2 Fraction of Inspired Oxygen 01/20/25 10:00 01/20/25 10:06 Temperature Pulse Rate 98 98 Respiratory Rate 20 Blood Pressure Pulse Oximetry Oxygen Delivery Oxygen Flow Rate Fraction of Inspired Oxygen Intake/Output Intake/Output: Intake & Output 01/17/25 01/18/25 01/19/25 01/20/25 23:59 23:59 23:59 23:59 Intake Total 1610 1080 2736 924 Output Total 016 566 8325 400 Balance 1410 480 869 524 Meds/Results Medications: Active Medications Generic Name Dose Route Start Last Admin Trade Name Freq PRN Reason Stop Dose Admin Albuterol/Ipratropium 3 ml 01/17/25 08:00 01/20/25 08:12 Ipratropium 0.5 Mg/Albuterol Sulfate 2.5 Mg Ampul.Neb 3 Ml INHALATION 3 ml Q6HRT DOYLE Administration Apixaban 5 mg 01/15/25 10:55 01/20/25 09:22 Apixaban 5 Mg Tablet PO 5 mg Q12HR DOYLE Administration Benzonatate 100 mg 01/14/25 13:00 01/20/25 09:22 Benzonatate 100 Mg Capsule PO 100 mg TID DOYLE Administration Budesonide 0.5 mg 01/20/25 09:50 01/20/25 09:59 Budesonide Respule Neb 0.5 Mg/2 Ml Amp INHALATION 0.5 mg Q12HRT DOYLE Administration Clopidogrel Bisulfate 75 mg 01/16/25 09:00 01/20/25 09:22 Clopidogrel Bisulfate 75 Mg Tablet PO 75 mg DAILY DOYLE Administration Dextrose 12.5 gm 01/14/25 08:08 Dextrose 50% 25 Gm/50 Ml Syringe IV PUSH PRN PRN Hypoglycemia Protocol Doxycycline Hyclate 100 mg 01/18/25 22:30 01/20/25 09:21 Doxycycline Hyclate 100 Mg Tablet PO 100 mg Q12HR DOYLE Administration Empagliflozin 10 mg 01/19/25 09:00 01/20/25 09:22 Empagliflozin 10 Mg Tablet PO 10 mg DAILY DOYLE Administration Fluticasone Propionate 1 spray 01/15/25 21:00 01/20/25 09:23 Fluticasone Propionate 0.05% Na Spr 16 Gm Btl (*Bkc) NASAL Not Given Q12HR DOYLE Glucagon 1 mg 01/14/25 08:08 Glucagon For Inj 1 Mg Vial IM PRN PRN Hypoglycemia Protocol Glucose 15 gm 01/14/25 08:08 Glucose Oral Gel 15 Gm Of Glucse In 37.5 Gm Tube PO PRN PRN Hypoglycemia Protocol Guaifenesin 600 mg 01/14/25 21:00 01/20/25 09:20 Guaifenesin 12 Hr 600 Mg Tabcr PO 600 mg Q12HR DOYLE Administration Guaifenesin/Dextromethorphan 10 ml 01/14/25 09:03 01/19/25 22:39 Guaifenesin/Dextromethorphan 10 Ml Udc PO 10 ml Q4H PRN Administration Cough Dextrose 1,000 mls @ 100 mls/hr 01/14/25 08:08 Dextrose 5% 1,000 Ml IVPB PRN PRN Hypoglycemia Protocol Doxycycline Hyclate 100 mg/ 100 mls @ 100 mls/hr 01/17/25 10:00 01/18/25 22:51 Sodium Chloride IVPB Not Given On Hold: 01/18/25 22:28 Q12H DOYLE Ceftriaxone Sodium 1 gm/ 50 mls @ 100 mls/hr 01/19/25 14:00 01/19/25 14:37 Sodium Chloride IVPB Not Given Q24H DOYLE Insulin Aspart 2 - 4 units 01/14/25 21:00 01/19/25 20:14 Insulin Aspart (*Bkc) 100 Units/Ml SUB-Q Not Given HS DOYLE Protocol Insulin Aspart 4 - 8 units 01/14/25 12:00 01/20/25 09:23 Insulin Aspart (*Bkc) 100 Units/Ml SUB-Q Not Given TIDWM [facility] Protocol Insulin Glargine 38 units 01/15/25 21:00 01/19/25 20:08 Insulin Glargine (*Bkc) 100 Units/Ml SUB-Q 38 units HS DOYLE Administration Losartan Potassium 12.5 mg 01/14/25 09:00 01/14/25 09:22 Losartan Potassium 12.5 Mg Tablet PO 12.5 mg On Hold: 01/15/25 07:59 DAILY DOYLE Administration Metoprolol Succinate 25 mg 01/20/25 09:00 01/20/25 09:22 Metoprolol Succinate Ext Rel 25 Mg Tabcr PO 25 mg QAM DOYLE Administration Ondansetron HCl 4 mg 01/14/25 09:03 01/16/25 12:27 Ondansetron Inj 4 Mg/2 Ml Vial IV PUSH 4 mg Q6H PRN Administration Nausea And Vomiting Rosuvastatin Calcium 20 mg 01/15/25 21:00 01/19/25 20:07 Rosuvastatin 20 Mg Tablet PO 20 mg QHS DOYLE Administration Sitagliptin Phosphate 100 mg 01/15/25 09:00 01/20/25 09:21 Sitagliptin Phosphate 100 Mg Tablet PO 100 mg QAM DOYLE Administration Sodium Chloride 1 spray 01/16/25 14:19 01/17/25 21:07 Saline 0.65% Frank Soln 44 Ml Btl NASAL 1 spray Q6HR PRN Administration Congestion Venlafaxine HCl 150 mg 01/15/25 09:00 01/20/25 09:22 Venlafaxine Hcl Xr 75 Mg Cap.Er.24h PO 150 mg DAILY DOYLE Administration Radiology Results: ITS Impressions Chest/Abdomen/Pelvis CTA 01/14/25 08:21 IMPRESSION: 1. Normal caliber aorta with no dissection. No acute cardiopulmonary disease or acute intra-abdominal/pelvic process. 2. Diverticulosis. Abdomen X-Ray 01/16/25 13:09 Impression: 1. No acute abnormality. Chest X-Ray 01/20/25 08:14 IMPRESSION: No focal consolidation. Mild perihilar bronchial wall thickening, findings suggestive of respiratory bronchiolitis. Labs Labs: Laboratory Results - last 24 hr 01/19/25 01/19/25 01/19/25 11:29 15:33 20:04 WBC RBC Hgb Hct MCV MCH MCHC RDW Plt Count MPV Sodium Potassium Chloride Carbon Dioxide Anion Gap BUN Creatinine Estim Creat Clear Calc Estimated GFR Glucose POC Capillary Glucose 159 H 162 H 192 H Calcium Magnesium Influenza A (RT-PCR) Influenza B (RT-PCR) RSV (RT-PCR) SARS-CoV-2 RNA (RT-PCR) 01/19/25 01/20/25 01/20/25 22:55 03:50 07:30 WBC 10.4 H RBC 3.91 L Hgb 12.1 Hct 37.0 MCV 94.6 MCH 30.9 MCHC 32.7 RDW 12.8 Plt Count 260 MPV 10.5 H Sodium 135 L Potassium 3.1 L Chloride 99 Carbon Dioxide 30 Anion Gap 6 BUN 25 H Creatinine 1.35 H Estim Creat Clear Calc 31 Estimated GFR 38 L Glucose 83 POC Capillary Glucose 85 Calcium 8.4 Magnesium 1.8 Influenza A (RT-PCR) Negative Influenza B (RT-PCR) Negative RSV (RT-PCR) Negative SARS-CoV-2 RNA (RT-PCR) Negative Please be advised this is a medical document. It is intended for [id number] communication. It is written in medical language and may contain unfamiliar abbreviations or verbiage. Medical documents are intended to carry relevant information, facts as evident, and the clinical opinion of the practitioner at the time of the encounter. This report may have been done utilizing a voice recognition system. Attempts have been made to correct errors. However, there may be uncorrected grammatical, spelling, and recognition errors present. The file time of this note does not necessarily represent the time the patient was seen. Report Initialized date/time: 680901/20/25 / 1043 Electronically signed by: [id number]/20/25 [id number] Valorie Anderson MD 01/20/25 1100
--- NOTE | 2025-01-20 13:28 | PCPTNOTE ---
1st attempt pt with nursing placing new IV in, guided, pt asked to come back because she want to do PT.
[2025-01-20] MEDS: PERFLUTREN LIPID MICROSPHERES 1.5 ML VIAL DILUTED TO 10 ML TOTAL VOLUME IV PUSH (16:18)
--- NOTE | 2025-01-20 16:31 | PC.NURSE ---
On 01/20/25, the student, Jenniffer, provided care and completed [facility] documentation on this patient. I have reviewed the student's documentation and agree with the findings.
--- NOTE | 2025-01-20 16:51 | P.PNIM_ITS ---
Progress Note: A&P Assessment and Plan (1) ST elevation (STEMI) myocardial infarction: Code(s): I21.3 - ST elevation (STEMI) myocardial infarction of unspecified site Status: Acute Assessment and Plan: 1 stent to the LAD on 01/14/2025 by Cardiology Holding losartan due to soft blood pressures Decreased dose of Coreg Continue ticagrelor, rosuvastatin (2) Hyperlipidemia LDL goal <70: Code(s): E78.5 - Hyperlipidemia, unspecified Status: Acute Assessment and Plan: Continue statin (3) Diabetes: Qualifiers: Diabetes mellitus type: type 2 Diabetes mellitus long-term insulin use: with long-term use Diabetes mellitus complication status: without complication Qualified Code(s): E11.9 - Type 2 diabetes mellitus without complications; Z79.4 - alf (current) use of insulin Code(s): E11.9 - Type 2 diabetes mellitus without complications Status: Acute Assessment and Plan: Diabetic diet Accu-Cheks a.c. HS Continue home diabetic medications SSI (4) Anxiety and depression: Code(s): F41.9 - Anxiety disorder, unspecified; F32.A - Depression, unspecified Status: Acute Assessment and Plan: Continue venlafaxine (5) Cough: Code(s): R05.9 - Cough, unspecified Status: Acute Assessment and Plan: Sputum clear Chest x-ray clear Tessalon Perles and guaifenesin Clear to Plan 79 y/o female presented with CP and patient was found to have anterior STEMI and was taken to cardiac cath had primary PCI to mid LAD, patient stats feeling much better however she does have cough, patient did have chest x-ray and it shows pulmonary edema, patient has severe cardiomyopathy with EF 20-25%, patient being gently diuresed, will monitor and plan, will have PT/OT to evaluate the patient. patient remains clinically stable, had a persistent cough last night chest x-ray showed pulmonary edema, IV lasix was ordered but did not have IV, and IV lasix was not given, this morning patient has IV now will give lasix 40mg once will monitor. patient with severe cardiomyopathy had repeat cardiac ECHO still shows patient EF is 25-30% patient will need LifeVest, today patient has persistent cough CXR shows bronchiolitis, gave pulmicort nebs, doxycycline, patient is seen by consumer advocate, will monitor, Subjective Date/time seen: 01/20/25 16:51 Interval history: Chest pain H&P-Narrative: 79-year-old female presents the hospital on 01/14/2025 with complaints of chest pain. She was found to have a ST-elevation myocardial infarction I was taken to the roofing laborer that day. She had a PICC to the LAD with 1 stent placed. Patient is allergic to aspirin she was started on ticagrelor, carvedilol, lisinopril, rosuvastatin. On 01/15/2025 around noon the patient had increased ST elevation in leads V1 and V2, Dr. Rios is concerned about a possible aneurysm will continue with current medical management at this time however if the patient complains of chest pain, has decreased oxygen saturations or decreasing her blood pressure Dr. Rios take her back to the roofing laborer. 79 y/o female presented with CP and patient was found to have anterior STEMI and was taken to cardiac cath had primary PCI to mid LAD, patient stats feeling much better however she does have cough, patient did have chest x-ray and it shows pulmonary edema, patient has severe cardiomyopathy with EF 20-25%, patient being gently diuresed, will monitor and plan, will have PT/OT to evaluate the patient. patient remains clinically stable, had a persistent cough last night chest x-ray showed pulmonary edema, IV lasix was ordered but did not have IV, and IV lasix was not given, this morning patient has IV now will give lasix 40mg once will monitor. patient with severe cardiomyopathy had repeat cardiac ECHO still shows patient EF is 25-30% patient will need LifeVest, today patient has persistent cough CXR shows bronchiolitis, gave pulmicort nebs, doxycycline, patient is seen by consumer advocate, will monitor, Review of Systems Review of Systems: 12 systems were reviewed and are negativ e except for as per HPI. All systems reviewed & are unremarkable except as noted in HPI and below Exam Narrative: Patient is comfortable, NAD HEENT: eyes are clear and none icteric LUNGS:CTA HEART: RR S1S2 ABD: BS+, Soft and nontender Lower extremities: no edema SKIN: nonjaundiced Neuro: grossly intact. Objective Data Vital Signs Vital Signs: Vital Signs - 24 hr 01/19/25 18:00 01/19/25 20:00 01/19/25 20:00 Temperature 36.8 C Pulse Rate 112 H 106 H Respiratory Rate 22 H Blood Pressure 100/70 Pulse Oximetry 97 95 Oxygen Delivery Nasal Cannula Oxygen Flow Rate 2 Fraction of Inspired Oxygen 01/19/25 20:00 01/19/25 20:12 01/19/25 20:14 Temperature Pulse Rate 106 H 120 H 120 H Respiratory Rate 20 20 Blood Pressure Pulse Oximetry 95 Oxygen Delivery Nasal Cannula Oxygen Flow Rate 2 Fraction of Inspired Oxygen 01/19/25 22:00 01/20/25 00:00 01/20/25 00:00 Temperature Pulse Rate 106 H 101 H Respiratory Rate Blood Pressure Pulse Oximetry 95 Oxygen Delivery Nasal Cannula Oxygen Flow Rate 2 Fraction of Inspired Oxygen 01/20/25 00:13 01/20/25 01:41 01/20/25 01:50 Temperature 37.0 C Pulse Rate 99 99 100 Respiratory Rate 21 H 20 20 Blood Pressure 95/50 L Pulse Oximetry 98 Oxygen Delivery Oxygen Flow Rate Fraction of Inspired Oxygen 01/20/25 02:00 01/20/25 04:00 01/20/25 04:00 Temperature Pulse Rate 98 95 Respiratory Rate Blood Pressure Pulse Oximetry 97 Oxygen Delivery Nasal Cannula Oxygen Flow Rate 2 Fraction of Inspired Oxygen 01/20/25 04:21 01/20/25 06:00 01/20/25 07:19 Temperature 36.6 C 36.6 C Pulse Rate 98 98 96 Respiratory Rate 22 H 24 H Blood Pressure 95/58 L 95/78 L Pulse Oximetry 96 98 Oxygen Delivery Oxygen Flow Rate Fraction of Inspired Oxygen 01/20/25 08:00 01/20/25 08:00 01/20/25 08:12 Temperature Pulse Rate 96 Respiratory Rate Blood Pressure Pulse Oximetry 98 94 Oxygen Delivery Nasal Cannula Nasal Cannula Oxygen Flow Rate 2 2 Fraction of Inspired Oxygen 01/20/25 08:12 01/20/25 08:20 01/20/25 08:27 Temperature Pulse Rate 96 100 Respiratory Rate 20 20 Blood Pressure Pulse Oximetry 87 L Oxygen Delivery Nasal Cannula Oxygen Flow Rate 1 Fraction of Inspired Oxygen 01/20/25 08:30 01/20/25 09:22 01/20/25 09:59 Temperature Pulse Rate 103 H 99 Respiratory Rate 20 Blood Pressure Pulse Oximetry 93 Oxygen Delivery Nasal Cannula Oxygen Flow Rate 2 Fraction of Inspired Oxygen 01/20/25 10:00 01/20/25 10:06 01/20/25 11:39 Temperature 36.4 C L Pulse Rate 98 98 87 Respiratory Rate 20 24 H Blood Pressure 95/59 L Pulse Oximetry 98 Oxygen Delivery Oxygen Flow Rate Fraction of Inspired Oxygen 01/20/25 12:00 01/20/25 13:57 01/20/25 14:00 Temperature Pulse Rate 93 98 99 Respiratory Rate 20 Blood Pressure Pulse Oximetry Oxygen Delivery Oxygen Flow Rate Fraction of Inspired Oxygen 01/20/25 14:04 01/20/25 16:00 01/20/25 16:00 Temperature 36.6 C Pulse Rate 99 92 96 Respiratory Rate 20 20 Blood Pressure 103/59 L Pulse Oximetry 96 Oxygen Delivery Oxygen Flow Rate Fraction of Inspired Oxygen Intake/Output Intake/Output: Intake & Output 01/17/25 01/18/25 01/19/25 01/20/25 23:59 23:59 23:59 23:59 Intake Total 1610 1080 2736 1224 Output Total 905 563 9892 875 Balance 1410 480 -864 349 Meds/Results Medications: Active Medications Generic Name Dose Route Start Last Admin Trade Name Freq PRN Reason Stop Dose Admin Albuterol/Ipratropium 3 ml 01/17/25 08:00 01/20/25 13:56 Ipratropium 0.5 Mg/Albuterol Sulfate 2.5 Mg Ampul.Neb 3 Ml INHALATION 3 ml Q6HRT DOYLE Administration Apixaban 5 mg 01/15/25 10:55 01/20/25 09:22 Apixaban 5 Mg Tablet PO 5 mg Q12HR DOYLE Administration Benzonatate 100 mg 01/14/25 13:00 01/20/25 16:27 Benzonatate 100 Mg Capsule PO 100 mg TID DOYLE Administration Budesonide 0.5 mg 01/20/25 09:50 01/20/25 09:59 Budesonide Respule Neb 0.5 Mg/2 Ml Amp INHALATION 0.5 mg Q12HRT DOYLE Administration Cefuroxime Axetil 500 mg 01/20/25 13:30 01/20/25 14:25 Cefuroxime Axetil 250 Mg Tablet PO 01/21/25 21:01 500 mg Q12HR DOYLE Administration Clopidogrel Bisulfate 75 mg 01/16/25 09:00 01/20/25 09:22 Clopidogrel Bisulfate 75 Mg Tablet PO 75 mg DAILY DOYLE Administration Dextrose 12.5 gm 01/14/25 08:08 Dextrose 50% 25 Gm/50 Ml Syringe IV PUSH PRN PRN Hypoglycemia Protocol Doxycycline Hyclate 100 mg 01/18/25 22:30 01/20/25 09:21 Doxycycline Hyclate 100 Mg Tablet PO 01/23/25 21:01 100 mg Q12HR DOYLE Administration Empagliflozin 10 mg 01/19/25 09:00 01/20/25 09:22 Empagliflozin 10 Mg Tablet PO 10 mg DAILY DOYLE Administration Fluticasone Propionate 1 spray 01/15/25 21:00 01/20/25 09:23 Fluticasone Propionate 0.05% Na Spr 16 Gm Btl (*Bkc) NASAL Not Given Q12HR DOYLE Glucagon 1 mg 01/14/25 08:08 Glucagon For Inj 1 Mg Vial IM PRN PRN Hypoglycemia Protocol Glucose 15 gm 01/14/25 08:08 Glucose Oral Gel 15 Gm Of Glucse In 37.5 Gm Tube PO PRN PRN Hypoglycemia Protocol Guaifenesin 600 mg 01/14/25 21:00 01/20/25 09:20 Guaifenesin 12 Hr 600 Mg Tabcr PO 600 mg Q12HR DOYLE Administration Guaifenesin/Dextromethorphan 10 ml 01/14/25 09:03 01/20/25 12:15 Guaifenesin/Dextromethorphan 10 Ml Udc PO 10 ml Q4H PRN Administration Cough Dextrose 1,000 mls @ 100 mls/hr 01/14/25 08:08 Dextrose 5% 1,000 Ml IVPB PRN PRN Hypoglycemia Protocol Insulin Aspart 2 - 4 units 01/14/25 21:00 01/19/25 20:14 Insulin Aspart (*Bkc) 100 Units/Ml SUB-Q Not Given HS [facility] Protocol Insulin Aspart 4 - 8 units 01/14/25 12:00 01/20/25 11:36 Insulin Aspart (*Bkc) 100 Units/Ml SUB-Q Not Given TIDWM [facility] Protocol Insulin Glargine 38 units 01/15/25 21:00 01/19/25 20:08 Insulin Glargine (*Bkc) 100 Units/Ml SUB-Q 38 units HS DOYLE Administration Losartan Potassium 12.5 mg 01/14/25 09:00 01/14/25 09:22 Losartan Potassium 12.5 Mg Tablet PO 12.5 mg On Hold: 01/15/25 07:59 DAILY DOYLE Administration Metoprolol Succinate 25 mg 01/20/25 09:00 01/20/25 09:22 Metoprolol Succinate Ext Rel 25 Mg Tabcr PO 25 mg QAM DOYLE Administration Ondansetron HCl 4 mg 01/14/25 09:03 01/16/25 12:27 Ondansetron Inj 4 Mg/2 Ml Vial IV PUSH 4 mg Q6H PRN Administration Nausea And Vomiting Rosuvastatin Calcium 20 mg 01/15/25 21:00 01/19/25 20:07 Rosuvastatin 20 Mg Tablet PO 20 mg QHS DOYLE Administration Sitagliptin Phosphate 100 mg 01/15/25 09:00 01/20/25 09:21 Sitagliptin Phosphate 100 Mg Tablet PO 100 mg QAM DOYLE Administration Sodium Chloride 1 spray 01/16/25 14:19 01/17/25 21:07 Saline 0.65% Frank Soln 44 Ml Btl NASAL 1 spray Q6HR PRN Administration Congestion Venlafaxine HCl 150 mg 01/15/25 09:00 01/20/25 09:22 Venlafaxine Hcl Xr 75 Mg Cap.Er.24h PO 150 mg DAILY DOYLE Administration Radiology Results: ITS Impressions Chest/Abdomen/Pelvis CTA 01/14/25 08:21 IMPRESSION: 1. Normal caliber aorta with no dissection. No acute cardiopulmonary disease or acute intra-abdominal/pelvic process. 2. Diverticulosis. Abdomen X-Ray 01/16/25 13:09 Impression: 1. No acute abnormality. Chest X-Ray 01/20/25 08:14 IMPRESSION: No focal consolidation. Mild perihilar bronchial wall thickening, findings suggestive of respiratory bronchiolitis. Labs Labs: Laboratory Results - last 24 hr 01/19/25 01/19/25 01/20/25 20:04 22:55 03:50 WBC 10.4 H RBC 3.91 L Hgb 12.1 Hct 37.0 MCV 94.6 MCH 30.9 MCHC 32.7 RDW 12.8 Plt Count 260 MPV 10.5 H Sodium 135 L Potassium 3.1 L Chloride 99 Carbon Dioxide 30 Anion Gap 6 BUN 25 H Creatinine 1.35 H Estim Creat Clear Calc 31 Estimated GFR 38 L Glucose 83 POC Capillary Glucose 192 H Calcium 8.4 Magnesium 1.8 Influenza A (RT-PCR) Negative Influenza B (RT-PCR) Negative RSV (RT-PCR) Negative SARS-CoV-2 RNA (RT-PCR) Negative 01/20/25 01/20/25 01/20/25 07:30 11:29 15:42 WBC RBC Hgb Hct MCV MCH MCHC RDW Plt Count MPV Sodium Potassium Chloride Carbon Dioxide Anion Gap BUN Creatinine Estim Creat Clear Calc Estimated GFR Glucose POC Capillary Glucose 85 168 H 185 H Calcium Magnesium Influenza A (RT-PCR) Influenza B (RT-PCR) RSV (RT-PCR) SARS-CoV-2 RNA (RT-PCR) Quality VTE Prophylaxis VTE prophylaxis: mechanical ordered and pharmacologic ordered
[2025-01-20] MEDS: INSULIN GLARGINE (*BKC) 100 UNITS/ML 38 UNITS SUB-Q (20:50)
[2025-01-20] MEDS: ROSUVASTATIN 20 MG TABLET PO (20:52)
[2025-01-21] VITALS (30 sets, daily range): BP systolic 84–100; BP diastolic 50–65; PULSE 62–109; RESP 20–24; TEMP 36.6–36.9; O2SAT 87–99
[2025-01-21] MEDS: BISACODYL 10 MG SUPPOSITORY RECTAL (00:11)
[2025-01-21] MEDS: IPRATROPIUM 0.5 MG/ALBUTEROL SULFATE 2.5 MG AMPUL.NEB 3 ML INHALATION ×3 (02:10→13:56)
[2025-01-21 03:52] LABS: Hematocrit 37.3 % (37.0-47.0); Hemoglobin 12.2 g/dL (12.0-15.0); Mean Corpuscular HGB Conc 32.7 g/dl (32-36); Mean Corpuscular Hemoglobin 30.9 pg (26-34); Mean Corpuscular Volume 94.4 fl (80-100); Platelet Count Result 276 k/mm3 (150-375); Red Blood Count 3.95 M/mm3 (4.2-5.4); White Blood Count 10.8 K/mm3 (4.5-10.0)
[2025-01-21 04:18] LABS: Anion Gap 5 mmol/L (4-12); Blood Urea Nitrogen 24 mg/dL (7-17); Calcium 8.4 mg/dL (8.4-10.2); Carbon Dioxide 31 mmol/L (22-30); Chloride 98 mmol/L (98-107); Estimated CRCL calculation 31 ml/min; Estimated Glomerular Filt Rate 37; Glucose 126 mg/dL (65-110); Magnesium 1.7 mg/dL (1.6-2.3); Potassium 3.2 mmol/L (3.4-5.0); Sodium 134 mmol/L (137-145)
[2025-01-21] MEDS: METOPROLOL SUCCINATE EXT REL 25 MG TABCR PO (07:57)
[2025-01-21] MEDS: VENLAFAXINE HCL XR 75 MG CAP.ER.24H 150 MG PO (07:58)
[2025-01-21] MEDS: guaiFENesin 12 HR 600 MG TABCR PO ×2 (07:58→20:44)
[2025-01-21] MEDS: EMPAGLIFLOZIN 10 MG TABLET PO (07:58)
[2025-01-21] MEDS: APIXABAN 5 MG TABLET PO ×2 (08:00→20:45)
[2025-01-21] MEDS: DOXYCYCLINE HYCLATE 100 MG TABLET PO ×2 (08:00→20:45)
[2025-01-21] MEDS: BENZONATATE 100 MG CAPSULE PO ×3 (08:00→17:24)
[2025-01-21] MEDS: CLOPIDOGREL BISULFATE 75 MG TABLET PO (08:00)
[2025-01-21] MEDS: BUDESONIDE RESPULE NEB 0.5 MG/2 ML AMP INHALATION ×2 (08:50→21:19)
[2025-01-21] MEDS: POTASSIUM CHLORIDE 20 MEQ ER TABLET 40 MEQ PO (09:23)
--- NOTE | 2025-01-21 09:36 | PN_ITS ---
Report recreated on 02/04/25. Original report was signed by Drea Mccrary APRN on 01/21/25 at 0947. Addendum signed by Drea Mccrary APRN on 01/21/25 at 1148. ADDENDUM Have discussed lifevest with patient in setting of ICMP and prevention of sudden cardiac Patient agreeable and order has been placed Addendum Documented By: Krysta Foote 01/21/25 1148 Addendum Signed By: <Electronically signed by Krysta Foote>01/21/25 1148 Progress Note: A&P Assessment and Plan (1) ST elevation (STEMI) myocardial infarction: Code(s): I21.3 - ST elevation (STEMI) myocardial infarction of unspecified site <Drea Mccrary APRN - Last Filed: 01/21/25 09:47> Status: Acute <Drea Mccrary APRN - Last Filed: 01/21/25 09:47> Assessment and Plan: Anterior STEMI status post primary PCI to mid LAD <Drea Mccrary APRN - Last Filed: 01/21/25 09:47> (2) Paroxysmal atrial fibrillation: Code(s): I48.0 - Paroxysmal atrial fibrillation <Drea Mccrary APRN - Last Filed: 01/21/25 09:47> Status: Acute <Drea Mccrary APRN - Last Filed: 01/21/25 09:47> Assessment and Plan: On anticoagulation <Drea Mccrary APRN - Last Filed: 01/21/25 09:47> (3) Ischemic cardiomyopathy: Code(s): I25.5 - Ischemic cardiomyopathy <Drea Mccrary APRN - Last Filed: 01/21/25 09:47> Status: Acute <Drea Mccrary APRN - Last Filed: 01/21/25 09:47> Assessment and Plan: Echo shows severely depressed LV ejection fraction of 20-25%. The entire septum, anterior wall, apex are severely hypokinetic. Mild mitral regurgitation noted. <Drea Mccrary APRN - Last Filed: 01/21/25 09:47> (4) Electrolyte abnormality: Code(s): E87.8 - Other disorders of electrolyte and fluid balance, not elsewhere classified <Drea Mccrary [employer] - Last Filed: 01/21/25 09:47> Status: Acute <Drea Mccrary [employer] - Last Filed: 01/21/25 09:47> Assessment and Plan: Hypokalemia with potassium of 3.3 Creatinine 1.2 today <Drea Mccrary [employer] - Last Filed: 01/21/25 09:47> (5) Acute systolic (congestive) heart failure: Code(s): I50.21 - Acute systolic (congestive) heart failure <Drea Gonzalesjohnkorey [employer] - Last Filed: 01/21/25 09:47> Status: Acute <Drea Mccrary [employer] - Last Filed: 01/21/25 09:47> Assessment and Plan: Secondary to large anterior GA <Drea Gonzalesjohnkorey [employer] - Last Filed: 01/21/25 09:47> Assessment and Plan: 79-year-old woman with history of TIA, insulin-dependent diabetes, paroxysmal atrial fibrillation, and hyperlipidemia presented with chest discomfort found to have anterior STEMI for which she underwent primary PCI to mid LAD Anterior STEMI -status post primary PCI -she is intolerant to aspirin given that she has facial swelling with potential compromise of respiratory system. Continue Eliquis and clopidogrel -continue statin -cardiac rehab in 1 month -f/u echo demonstrates EF unchanged 25-30% with mid anterior wall, inferolateral wall, anteroseptal and apical septum wall akinesis and hyokinesis of the inferior wall. -will reviw images with Dr. Anderson. Patient currently chest pain free and troponin negative this admission Paroxysmal atrial fibrillation on chronic anticoagulation -continue Eliquis Hypotension -Her meds are currently on hold Hypokalemia with potassium 3.2 -replete potassium to keep greater than 4 Ischemic cardiomyopathy -guideline directed medical therapy as tolerated -Her Toprol XL 25 mg and losatan 12.5 mg are on hold d/t hypotension. -added empagliflozin 10 mg daily which continues -would resume low dose medication therapy as BP tolerates -repeat TTE in 40 days post revascularization. If EF remains less than 35% she will need an ICD Renal insufficiency -CR up to 1.38 she s/p IV diuresis, will hold continue to hold lasix Persistent cough -CXR today suggestive of bronchiolitis -respiratory panel negative -management as per primary team Will discuss lifevest at al with patient resume low dose meds for ICMP as BP tolerates <Drea Mccrary APRN - Last Filed: 01/21/25 09:47> 79-year-old woman with history of TIA, insulin-dependent diabetes, paroxysmal atrial fibrillation, and hyperlipidemia presented with chest discomfort found to have anterior STEMI for which she underwent primary PCI to mid LAD Anterior STEMI -status post primary PCI -she is intolerant to aspirin given that she has facial swelling with potential compromise of respiratory system. Continue Eliquis and clopidogrel -continue statin -cardiac rehab in 1 month -f/u echo demonstrates EF unchanged 25-30% with mid anterior wall, inferolateral wall, anteroseptal and apical septum wall akinesis and hyokinesis of the inferior wall. -Patient currently chest pain free and troponin negative this admission Paroxysmal atrial fibrillation on chronic anticoagulation -continue Eliquis Hypotension -Her meds are currently on hold Hypokalemia with potassium 3.2 -replete potassium to keep greater than 4 Ischemic cardiomyopathy -guideline directed medical therapy as tolerated -Her Toprol XL 25 mg and losatan 12.5 mg are on hold d/t hypotension. -added empagliflozin 10 mg daily which continues -would resume low dose medication therapy as BP tolerates -repeat TTE in 40 days post revascularization. If EF remains less than 35% she will need an ICD Renal insufficiency -CR up to 1.38 she s/p IV diuresis, will hold continue to hold lasix Persistent cough -CXR today suggestive of bronchiolitis -respiratory panel negative -management as per primary team Will discuss lifevest at dc with patient resume low dose meds for ICMP as BP tolerates <Valorie Anderson MD - Last Filed: 01/21/25 09:55> Subjective Date/time seen: 01/21/25 09:36 <Drea Mccrary APRN - Last Filed: 01/21/25 09:47> Interval history: Chest pain H&P-Narrative: 79-year-old female presents the hospital on 01/14/2025 with complaints of chest pain. She was found to have a ST-elevation myocardial infarction I was taken to the cath lab nurse that day. She had a PICC to the LAD with 1 stent placed. Patient is allergic to aspirin she was started on ticagrelor, carvedilol, lisinopril, rosuvastatin. On 01/15/2025 around noon the patient had increased ST elevation in leads V1 and V2, Dr. Rios is concerned about a possible aneurysm will continue with current medical management at this time however if the patient complains of chest pain, has decreased oxygen saturations or decreasing her blood pressure Dr. Rios take her back to the cath lab nurse. 79 y/o female presented with CP and patient was found to have anterior STEMI and was taken to cardiac cath had primary PCI to mid LAD, patient stats feeling much better however she does have cough, patient did have chest x-ray and it shows pulmonary edema, patient has severe cardiomyopathy with EF 20-25%, patient being gently diuresed, will monitor and plan, will have PT/OT to evaluate the patient. 01/19/25: Patient is sitting up in chair, she reports feeling as though she cannot take a deep breath in and cough. No chest pain or pressure. No dizziness or palpitations. Overnight IV lasix was ordered however, no IV access and have been unable to obtain. 01/20/25: Patient sitting up in bed. She continues to experience cough with little sputum production. No chest pain or pressure. No new shortness of breath. No dizziness or palpitations. 01/21/25: Patient feeling improved this am. She reports cough improved and now on room air. Denies any chest pain or pressure. No shortness of breath at this time. No dizziness <Drea Mccrary APRN - Last Filed: 01/21/25 09:47> Review of Systems Review of Systems: All systems reviewed & are unremarkable except as noted in HPI and below (in HPI ) <Drea Mccrary APRN - Last Filed: 01/21/25 09:47> Exam Narrative: General: Alert oriented x3, no acute distress Neck: Supple, no JVD Chest: coarse Cardiac: S1, S2 +, regular rate, regular rhythm, no murmurs or rubs Extremities: No pedal edema, no skin rash Neurologic: Alert and oriented x3, no focal neurological deficits <Drea Mccrary [employer] - Last Filed: 01/21/25 09:47> Const: General: comfortable and no acute distress <Drea Mccrary [employer] - Last Filed: 01/21/25 09:47> Other: Able to lie flat <Drea Mccrary [employer] - Last Filed: 01/21/25 09:47> HENMT: Face/Nose/Sinus: Normal nares present and no epistaxis <Drea Mccrary [employer] - Last Filed: 01/21/25 09:47> Mouth: Yes moist mucous membranes <Drea Mccrary [employer] - Last Filed: 01/21/25 09:47> Eyes: General: appearance normal, both eyes and all related structures <Drea Mccrary [employer] - Last Filed: 01/21/25 09:47> Sclera: sclerae normal <Drea Mccrary [employer] - Last Filed: 01/21/25 09:47> Pupils: Equal, round and reactive pupils present <Drea Mccrary [employer] - Last Filed: 01/21/25 09:47> EOM: EOMs intact bilaterally <Drea Mccrary [employer] - Last Filed: 01/21/25 09:47> Neck: Neck: supple and no JVD <Drea Mccrary [employer] - Last Filed: 01/21/25 09:47> Carotids: no bruits <Drea Mccrary [employer] - Last Filed: 01/21/25 09:47> Resp: Other: No chest wall tenderness <Drea Mccrary [employer] - Last Filed: 01/21/25 09:47> Cardio: Rate: regular rate and tachycardic <Drea Mccrary [employer] - Last Filed: 01/21/25 09:47> Rhythm: regular rhythm <Drea Mccrary [employer] - Last Filed: 01/21/25 09:47> Heart sounds: no gallops, no murmurs and no rubs <Dreagilmar Mccrary [employer] - Last Filed: 01/21/25 09:47> GI: Inspection: non-distended <Drea Mccrary [employer] - Last Filed: 01/21/25 09:47> Auscultation: normal bowel sounds <Dreagilmar Mccrary [employer] - Last Filed: 01/21/25 09:47> Skin: General skin exam: normal color, rashes and/or lesions noted and no erythema <Drea Mccrary [employer] - Last Filed: 01/21/25 09:47> Other: Warm <Drea Mccrary [employer] - Last Filed: 01/21/25 09:47> Neuro: Cranial nerves: Yes Equal, round and reactive pupils present and Yes Normal hearing present <Drea Mccrary [employer] - Last Filed: 01/21/25 09:47> Speech: normal speech and No Abnormal speech present <Dera Mccrary [employer] - Last Filed: 01/21/25 09:47> Sensory Exam: normal sensation <Drea David Mccrary [employer] - Last Filed: 01/21/25 09:47> Other: No obvious focal deficit or facial asymmetry <Drea Mccrary [employer] - Last Filed: 01/21/25 09:47> Extrem: General: no edema and no pedal edema <Drea Mccrary [employer] - Last Filed: 01/21/25 09:47> Other: Normal capillary refills Intact distal pulses. <Drea Mccrary [employer] - Last Filed: 01/21/25 09:47> Psych: Mental Status: mental status grossly normal <Drea Mccrary [employer] - Last Filed: 01/21/25 09:47> Affect: normal affect <Drea Mccrary [employer] - Last Filed: 01/21/25 09:47> Objective Data Vital Signs Vital Signs: Vital Signs - 24 hr 01/20/25 09:59 01/20/25 10:00 01/20/25 10:06 Temperature Pulse Rate 99 98 98 Respiratory Rate 20 20 Blood Pressure Pulse Oximetry Oxygen Delivery Oxygen Flow Rate 01/20/25 11:39 01/20/25 12:00 01/20/25 13:57 Temperature 36.4 C L Pulse Rate 87 93 98 Respiratory Rate 24 H 20 Blood Pressure 95/59 L Pulse Oximetry 98 Oxygen Delivery Oxygen Flow Rate 01/20/25 14:00 01/20/25 14:04 01/20/25 16:00 Temperature 36.6 C Pulse Rate 99 99 92 Respiratory Rate 20 20 Blood Pressure 103/59 L Pulse Oximetry 96 Oxygen Delivery Oxygen Flow Rate 01/20/25 16:00 01/20/25 18:00 01/20/25 20:00 Temperature Pulse Rate 96 100 Respiratory Rate Blood Pressure Pulse Oximetry 99 Oxygen Delivery Nasal Cannula Oxygen Flow Rate 2 01/20/25 20:00 01/20/25 20:08 01/20/25 20:35 Temperature 36.9 C Pulse Rate 89 100 Respiratory Rate 20 Blood Pressure 113/61 Pulse Oximetry 94 96 Oxygen Delivery Nasal Cannula Oxygen Flow Rate 2 01/20/25 20:35 01/20/25 20:41 01/20/25 22:00 Temperature Pulse Rate 90 96 90 Respiratory Rate 20 20 Blood Pressure Pulse Oximetry Oxygen Delivery Oxygen Flow Rate 01/20/25 23:54 01/21/25 00:00 01/21/25 00:00 Temperature 36.7 C Pulse Rate 102 H 103 H Respiratory Rate 22 H Blood Pressure 114/55 L Pulse Oximetry 100 98 Oxygen Delivery Nasal Cannula Oxygen Flow Rate 2 01/21/25 02:00 01/21/25 02:11 01/21/25 02:16 Temperature Pulse Rate 102 H 97 101 H Respiratory Rate Blood Pressure Pulse Oximetry Oxygen Delivery Oxygen Flow Rate 01/21/25 03:57 01/21/25 04:00 01/21/25 04:00 Temperature 36.8 C Pulse Rate 99 99 Respiratory Rate 20 Blood Pressure 91/51 L Pulse Oximetry 97 98 Oxygen Delivery Nasal Cannula Oxygen Flow Rate 2 01/21/25 07:52 01/21/25 07:57 01/21/25 08:00 Temperature 36.9 C Pulse Rate 95 96 94 Respiratory Rate 24 H Blood Pressure 90/57 L Pulse Oximetry 98 Oxygen Delivery Oxygen Flow Rate 01/21/25 08:50 01/21/25 08:50 01/21/25 09:02 Temperature Pulse Rate 99 101 H Respiratory Rate 20 20 Blood Pressure Pulse Oximetry 93 Oxygen Delivery Room Air Oxygen Flow Rate <Drea Mccrary APRN - Last Filed: 01/21/25 09:47> Intake/Output Intake/Output: Intake & Output 01/18/25 01/19/25 01/20/25 01/21/25 23:59 23:59 23:59 23:59 Intake Total 1080 2736 1464 906 Output Total 600 3600 1175 400 Balance 480 -864 289 506 <Drea Mccrary [employer] - Last Filed: 01/21/25 09:47> Meds/Results Medications: Active Medications Generic Name Dose Route Start Last Admin Trade Name Freq PRN Reason Stop Dose Admin Albuterol/Ipratropium 3 ml 01/17/25 08:00 01/21/25 08:50 Ipratropium 0.5 Mg/Albuterol Sulfate 2.5 Mg Ampul.Neb 3 Ml INHALATION 3 ml Q6HRT DOYLE Administration Apixaban 5 mg 01/15/25 10:55 01/21/25 08:00 Apixaban 5 Mg Tablet PO 5 mg Q12HR DOYLE Administration Benzonatate 100 mg 01/14/25 13:00 01/21/25 08:00 Benzonatate 100 Mg Capsule PO 100 mg TID DOYLE Administration Budesonide 0.5 mg 01/20/25 09:50 01/21/25 08:50 Budesonide Respule Neb 0.5 Mg/2 Ml Amp INHALATION 0.5 mg Q12HRT DOYLE Administration Cefuroxime Axetil 500 mg 01/20/25 13:30 01/21/25 07:59 Cefuroxime Axetil 250 Mg Tablet PO 01/21/25 21:01 500 mg Q12HR DOYLE Administration Clopidogrel Bisulfate 75 mg 01/16/25 09:00 01/21/25 08:00 Clopidogrel Bisulfate 75 Mg Tablet PO 75 mg DAILY DOYLE Administration Dextrose 12.5 gm 01/14/25 08:08 Dextrose 50% 25 Gm/50 Ml Syringe IV PUSH PRN PRN Hypoglycemia Protocol Doxycycline Hyclate 100 mg 01/18/25 22:30 01/21/25 08:00 Doxycycline Hyclate 100 Mg Tablet PO 01/23/25 21:01 100 mg Q12HR DOYLE Administration Empagliflozin 10 mg 01/19/25 09:00 01/21/25 07:58 Empagliflozin 10 Mg Tablet PO 10 mg DAILY DOYLE Administration Fluticasone Propionate 1 spray 01/15/25 21:00 01/20/25 20:53 Fluticasone Propionate 0.05% Na Spr 16 Gm Btl (*Bkc) NASAL Not Given Q12HR DOYLE Glucagon 1 mg 01/14/25 08:08 Glucagon For Inj 1 Mg Vial IM PRN PRN Hypoglycemia Protocol Glucose 15 gm 01/14/25 08:08 Glucose Oral Gel 15 Gm Of Glucse In 37.5 Gm Tube PO PRN PRN Hypoglycemia Protocol Guaifenesin 600 mg 01/14/25 21:00 01/21/25 07:58 Guaifenesin 12 Hr 600 Mg Tabcr PO 600 mg Q12HR DOYLE Administration Guaifenesin/Dextromethorphan 10 ml 01/14/25 09:03 01/20/25 12:15 Guaifenesin/Dextromethorphan 10 Ml Udc PO 10 ml Q4H PRN Administration Cough Dextrose 1,000 mls @ 100 mls/hr 01/14/25 08:08 Dextrose 5% 1,000 Ml IVPB PRN PRN Hypoglycemia Protocol Insulin Aspart 2 - 4 units 01/14/25 21:00 01/20/25 20:38 Insulin Aspart (*Bkc) 100 Units/Ml SUB-Q Not Given HS DOYLE Protocol Insulin Aspart 4 - 8 units 01/14/25 12:00 01/20/25 17:54 Insulin Aspart (*Bkc) 100 Units/Ml SUB-Q Not Given TIDWM DOYLE Protocol Insulin Glargine 38 units 01/15/25 21:00 01/20/25 20:50 Insulin Glargine (*Bkc) 100 Units/Ml SUB-Q 38 units HS DOYLE Administration Losartan Potassium 12.5 mg 01/14/25 09:00 01/14/25 09:22 Losartan Potassium 12.5 Mg Tablet PO 12.5 mg On Hold: 01/15/25 07:59 DAILY DOYLE Administration Metoprolol Succinate 25 mg 01/20/25 09:00 01/21/25 07:57 Metoprolol Succinate Ext Rel 25 Mg Tabcr PO 25 mg QAM DOYLE Administration Ondansetron HCl 4 mg 01/14/25 09:03 01/16/25 12:27 Ondansetron Inj 4 Mg/2 Ml Vial IV PUSH 4 mg Q6H PRN Administration Nausea And Vomiting Rosuvastatin Calcium 20 mg 01/15/25 21:00 01/20/25 20:52 Rosuvastatin 20 Mg Tablet PO 20 mg QHS DOYLE Administration Sitagliptin Phosphate 100 mg 01/15/25 09:00 01/21/25 07:58 Sitagliptin Phosphate 100 Mg Tablet PO 100 mg QAM DOYLE Administration Sodium Chloride 1 spray 01/16/25 14:19 01/17/25 21:07 Saline 0.65% Frank Soln 44 Ml Btl NASAL 1 spray Q6HR PRN Administration Congestion Venlafaxine HCl 150 mg 01/15/25 09:00 01/21/25 07:58 Venlafaxine Hcl Xr 75 Mg Cap.Er.24h PO 150 mg DAILY DOYLE Administration <Drea Mccrary, [employer] - Last Filed: 01/21/25 09:47> Radiology Results: ITS Impressions Chest/Abdomen/Pelvis CTA 01/14/25 08:21 IMPRESSION: 1. Normal caliber aorta with no dissection. No acute cardiopulmonary disease or acute intra-abdominal/pelvic process. 2. Diverticulosis. Abdomen X-Ray 01/16/25 13:09 Impression: 1. No acute abnormality. Chest X-Ray 01/20/25 08:14 IMPRESSION: No focal consolidation. Mild perihilar bronchial wall thickening, findings suggestive of respiratory bronchiolitis. <Drea Mccrary, [employer] - Last Filed: 01/21/25 09:47> Labs Labs: Laboratory Results - last 24 hr 01/20/25 01/20/25 01/20/25 11:29 15:42 20:25 WBC RBC Hgb Hct MCV MCH MCHC RDW Plt Count MPV Sodium Potassium Chloride Carbon Dioxide Anion Gap BUN Creatinine Estim Creat Clear Calc Estimated GFR Glucose POC Capillary Glucose 168 H 185 H 184 H Calcium Magnesium 01/21/25 01/21/25 03:35 07:20 WBC 10.8 H RBC 3.95 L Hgb 12.2 Hct 37.3 MCV 94.4 MCH 30.9 MCHC 32.7 RDW 12.6 Plt Count 276 MPV 10.3 Sodium 134 L Potassium 3.2 L Chloride 98 Carbon Dioxide 31 H Anion Gap 5 BUN 24 H Creatinine 1.38 H Estim Creat Clear Calc 31 Estimated GFR 37 L Glucose 126 H POC Capillary Glucose 101 Calcium 8.4 Magnesium 1.7 <Drea Mccrary APRN - Last Filed: 01/21/25 09:47> Please be advised this is a medical document. It is intended for [id number] communication. It is written in medical language and may contain unfamiliar abbreviations or verbiage. Medical documents are intended to carry relevant information, facts as evident, and the clinical opinion of the practitioner at the time of the encounter. This report may have been done utilizing a voice recognition system. Attempts have been made to correct errors. However, there may be uncorrected grammatical, spelling, and recognition errors present. The file time of this note does not necessarily represent the time the patient was seen. Report Initialized date/time: 68 Qamar 01/21/2539 Electronically signed by: 68Dexter Foote 01/21/25 0947 Valorie Anderson MD 01/21/25 0955
--- NOTE | 2025-01-21 15:04 | P.PNIM_ITS ---
Progress Note: A&P Assessment and Plan (1) ST elevation (STEMI) myocardial infarction: Code(s): I21.3 - ST elevation (STEMI) myocardial infarction of unspecified site Status: Acute Assessment and Plan: 1 stent to the LAD on 01/14/2025 by Cardiology Holding losartan due to soft blood pressures Decreased dose of Coreg Continue ticagrelor, rosuvastatin (2) Hyperlipidemia LDL goal <70: Code(s): E78.5 - Hyperlipidemia, unspecified Status: Acute Assessment and Plan: Continue statin (3) Diabetes: Qualifiers: Diabetes mellitus type: type 2 Diabetes mellitus mcfp insulin use: with mcfp use Diabetes mellitus complication status: without complication Qualified Code(s): E11.9 - Type 2 diabetes mellitus without complications; Z79.4 - care home (current) use of insulin Code(s): E11.9 - Type 2 diabetes mellitus without complications Status: Acute Assessment and Plan: Diabetic diet Accu-Cheks a.c. HS Continue home diabetic medications SSI (4) Anxiety and depression: Code(s): F41.9 - Anxiety disorder, unspecified; F32.A - Depression, unspecified Status: Acute Assessment and Plan: Continue venlafaxine (5) Cough: Code(s): R05.9 - Cough, unspecified Status: Acute Assessment and Plan: Sputum clear Chest x-ray clear Tessalon Perles and guaifenesin Clear to Plan 79 y/o female presented with CP and patient was found to have anterior STEMI and was taken to cardiac cath had primary PCI to mid LAD, patient stats feeling much better however she does have cough, patient did have chest x-ray and it shows pulmonary edema, patient has severe cardiomyopathy with EF 20-25%, patient being gently diuresed, will monitor and plan, will have PT/OT to evaluate the patient. patient remains clinically stable, had a persistent cough last night chest x-ray showed pulmonary edema, IV lasix was ordered but did not have IV, and IV lasix was not given, this morning patient has IV now will give lasix 40mg once will monitor. patient with severe cardiomyopathy had repeat cardiac ECHO still shows patient EF is 25-30% patient will need LifeVest, today patient has persistent cough CXR shows bronchiolitis, gave pulmicort nebs, doxycycline, patient is seen by forklift mechanic, will monitor, 79 y/o female presented with CP and patient was found to have anterior STEMI and was taken to cardiac cath had primary PCI to mid LAD, patient stats feeling much better however she does have cough, patient did have chest x-ray and it shows pulmonary edema, patient has severe cardiomyopathy with EF 20-25%, patient being gently diuresed, will monitor and plan, will have PT/OT to evaluate the patient. patient remains clinically stable, had a persistent cough night before chest x- ray showed pulmonary edema, IV lasix was ordered but did not have IV, and IV lasix was not given, this morning patient has IV now will give lasix 40mg once will monitor. patient with severe cardiomyopathy had repeat cardiac ECHO still shows patient EF is 25-30% patient will need LifeVest, patient cough has improved CXR showed bronchiolitis, gave Pulmicort nebs, doxycycline, patient is seen by forklift mechanic, patient will benefit with cardiac rehab once clinically stable, will monitor, Subjective Date/time seen: 01/21/25 15:04 Interval history: Chest pain H&P-Narrative: 79-year-old female presents the hospital on 01/14/2025 with complaints of chest pain. She was found to have a ST-elevation myocardial infarction I was taken to the nursery laborer that day. She had a PICC to the LAD with 1 stent placed. Patient is allergic to aspirin she was started on ticagrelor, carvedilol, lisinopril, rosuvastatin. On 01/15/2025 around noon the patient had increased ST elevation in leads V1 and V2, Dr. Rios is concerned about a possible aneurysm will continue with current medical management at this time however if the patient complains of chest pain, has decreased oxygen saturations or decreasing her blood pressure Dr. Rios take her back to the nursery laborer. 79 y/o female presented with CP and patient was found to have anterior STEMI and was taken to cardiac cath had primary PCI to mid LAD, patient stats feeling much better however she does have cough, patient did have chest x-ray and it shows pulmonary edema, patient has severe cardiomyopathy with EF 20-25%, patient being gently diuresed, will monitor and plan, will have PT/OT to evaluate the patient. patient remains clinically stable, had a persistent cough night before chest x- ray showed pulmonary edema, IV lasix was ordered but did not have IV, and IV lasix was not given, this morning patient has IV now will give lasix 40mg once will monitor. patient with severe cardiomyopathy had repeat cardiac ECHO still shows patient EF is 25-30% patient will need LifeVest, patient cough has improved CXR showed bronchiolitis, gave Pulmicort nebs, doxycycline, patient is seen by forklift mechanic, patient will benefit with cardiac rehab once clinically stable, will monitor, Review of Systems Review of Systems: 12 systems were reviewed and are negativ e except for as per HPI. All systems reviewed & are unremarkable except as noted in HPI and below Exam Narrative: Patient is comfortable, NAD HEENT: eyes are clear and none icteric LUNGS:CTA HEART: RR S1S2 ABD: BS+, Soft and nontender Lower extremities: no edema SKIN: nonjaundiced Neuro: grossly intact. Objective Data Vital Signs Vital Signs: Vital Signs - 24 hr 01/20/25 16:00 01/20/25 16:00 01/20/25 18:00 Temperature 36.6 C Pulse Rate 92 96 100 Respiratory Rate 20 Blood Pressure 103/59 L Pulse Oximetry 96 Oxygen Delivery Oxygen Flow Rate 01/20/25 20:00 01/20/25 20:00 01/20/25 20:08 Temperature 36.9 C Pulse Rate 89 100 Respiratory Rate 20 Blood Pressure 113/61 Pulse Oximetry 99 94 Oxygen Delivery Nasal Cannula Oxygen Flow Rate 2 01/20/25 20:35 01/20/25 20:35 01/20/25 20:41 Temperature Pulse Rate 90 96 Respiratory Rate 20 20 Blood Pressure Pulse Oximetry 96 Oxygen Delivery Nasal Cannula Oxygen Flow Rate 2 01/20/25 22:00 01/20/25 23:54 01/21/25 00:00 Temperature 36.7 C Pulse Rate 90 102 H 103 H Respiratory Rate 22 H Blood Pressure 114/55 L Pulse Oximetry 100 Oxygen Delivery Oxygen Flow Rate 01/21/25 00:00 01/21/25 02:00 01/21/25 02:11 Temperature Pulse Rate 102 H 97 Respiratory Rate Blood Pressure Pulse Oximetry 98 Oxygen Delivery Nasal Cannula Oxygen Flow Rate 2 01/21/25 02:16 01/21/25 03:57 01/21/25 04:00 Temperature 36.8 C Pulse Rate 101 H 99 99 Respiratory Rate 20 Blood Pressure 91/51 L Pulse Oximetry 97 Oxygen Delivery Oxygen Flow Rate 01/21/25 04:00 01/21/25 07:52 01/21/25 07:57 Temperature 36.9 C Pulse Rate 95 96 Respiratory Rate 24 H Blood Pressure 90/57 L Pulse Oximetry 98 98 Oxygen Delivery Nasal Cannula Oxygen Flow Rate 2 01/21/25 08:00 01/21/25 08:50 01/21/25 08:50 Temperature Pulse Rate 94 99 Respiratory Rate 20 Blood Pressure Pulse Oximetry 93 Oxygen Delivery Room Air Oxygen Flow Rate 01/21/25 09:02 01/21/25 10:00 01/21/25 11:50 Temperature 36.6 C Pulse Rate 101 H 99 62 Respiratory Rate 20 20 Blood Pressure 84/50 L Pulse Oximetry 99 Oxygen Delivery Oxygen Flow Rate 01/21/25 12:00 01/21/25 13:57 01/21/25 14:06 Temperature Pulse Rate 109 H 96 98 Respiratory Rate 20 20 Blood Pressure Pulse Oximetry Oxygen Delivery Oxygen Flow Rate Intake/Output Intake/Output: Intake & Output 01/18/25 01/19/25 01/20/25 01/21/25 23:59 23:59 23:59 23:59 Intake Total 1080 2736 1464 906 Output Total 600 3600 1175 400 Balance 480 -802 524 506 Meds/Results Medications: Active Medications Generic Name Dose Route Start Last Admin Trade Name Freq PRN Reason Stop Dose Admin Albuterol/Ipratropium 3 ml 01/17/25 08:00 01/21/25 13:56 Ipratropium 0.5 Mg/Albuterol Sulfate 2.5 Mg Ampul.Neb 3 Ml INHALATION 3 ml Q6HRT DOYLE Administration Apixaban 5 mg 01/15/25 10:55 01/21/25 08:00 Apixaban 5 Mg Tablet PO 5 mg Q12HR DOYLE Administration Benzonatate 100 mg 01/14/25 13:00 01/21/25 13:30 Benzonatate 100 Mg Capsule PO 100 mg TID DOYLE Administration Budesonide 0.5 mg 01/20/25 09:50 01/21/25 08:50 Budesonide Respule Neb 0.5 Mg/2 Ml Amp INHALATION 0.5 mg Q12HRT DOYLE Administration Cefuroxime Axetil 500 mg 01/20/25 13:30 01/21/25 07:59 Cefuroxime Axetil 250 Mg Tablet PO 01/21/25 21:01 500 mg Q12HR DOYLE Administration Clopidogrel Bisulfate 75 mg 01/16/25 09:00 01/21/25 08:00 Clopidogrel Bisulfate 75 Mg Tablet PO 75 mg DAILY DOYLE Administration Dextrose 12.5 gm 01/14/25 08:08 Dextrose 50% 25 Gm/50 Ml Syringe IV PUSH PRN PRN Hypoglycemia Protocol Doxycycline Hyclate 100 mg 01/18/25 22:30 01/21/25 08:00 Doxycycline Hyclate 100 Mg Tablet PO 01/23/25 21:01 100 mg Q12HR DOYLE Administration Empagliflozin 10 mg 01/19/25 09:00 01/21/25 07:58 Empagliflozin 10 Mg Tablet PO 10 mg DAILY DOYLE Administration Fluticasone Propionate 1 spray 01/15/25 21:00 01/21/25 14:22 Fluticasone Propionate 0.05% Na Spr 16 Gm Btl (*Bkc) NASAL Not Given Q12HR DOYLE Glucagon 1 mg 01/14/25 08:08 Glucagon For Inj 1 Mg Vial IM PRN PRN Hypoglycemia Protocol Glucose 15 gm 01/14/25 08:08 Glucose Oral Gel 15 Gm Of Glucse In 37.5 Gm Tube PO PRN PRN Hypoglycemia Protocol Guaifenesin 600 mg 01/14/25 21:00 01/21/25 07:58 Guaifenesin 12 Hr 600 Mg Tabcr PO 600 mg Q12HR DOYLE Administration Guaifenesin/Dextromethorphan 10 ml 01/14/25 09:03 01/20/25 12:15 Guaifenesin/Dextromethorphan 10 Ml Udc PO 10 ml Q4H PRN Administration Cough Dextrose 1,000 mls @ 100 mls/hr 01/14/25 08:08 Dextrose 5% 1,000 Ml IVPB PRN PRN Hypoglycemia Protocol Insulin Aspart 2 - 4 units 01/14/25 21:00 01/20/25 20:38 Insulin Aspart (*Bkc) 100 Units/Ml SUB-Q Not Given HS DOYLE Protocol Insulin Aspart 4 - 8 units 01/14/25 12:00 01/21/25 14:22 Insulin Aspart (*Bkc) 100 Units/Ml SUB-Q Not Given TIDWM DOYLE Protocol Insulin Glargine 38 units 01/15/25 21:00 01/20/25 20:50 Insulin Glargine (*Bkc) 100 Units/Ml SUB-Q 38 units HS DOYLE Administration Losartan Potassium 12.5 mg 01/14/25 09:00 01/14/25 09:22 Losartan Potassium 12.5 Mg Tablet PO 12.5 mg On Hold: 01/15/25 07:59 DAILY DOYLE Administration Metoprolol Succinate 25 mg 01/20/25 09:00 01/21/25 07:57 Metoprolol Succinate Ext Rel 25 Mg Tabcr PO 25 mg On Hold: 01/21/25 12:29 QAM DOYLE Administration Ondansetron HCl 4 mg 01/14/25 09:03 01/16/25 12:27 Ondansetron Inj 4 Mg/2 Ml Vial IV PUSH 4 mg Q6H PRN Administration Nausea And Vomiting Rosuvastatin Calcium 20 mg 01/15/25 21:00 01/20/25 20:52 Rosuvastatin 20 Mg Tablet PO 20 mg QHS DOYLE Administration Sitagliptin Phosphate 50 mg 01/22/25 09:00 Sitagliptin Phosphate 50 Mg Tablet PO QAM DOYLE Sodium Chloride 1 spray 01/16/25 14:19 01/17/25 21:07 Saline 0.65% Frank Soln 44 Ml Btl NASAL 1 spray Q6HR PRN Administration Congestion Venlafaxine HCl 150 mg 01/15/25 09:00 01/21/25 07:58 Venlafaxine Hcl Xr 75 Mg Cap.Er.24h PO 150 mg DAILY DOYLE Administration Radiology Results: ITS Impressions Chest/Abdomen/Pelvis CTA 01/14/25 08:21 IMPRESSION: 1. Normal caliber aorta with no dissection. No acute cardiopulmonary disease or acute intra-abdominal/pelvic process. 2. Diverticulosis. Abdomen X-Ray 01/16/25 13:09 Impression: 1. No acute abnormality. Chest X-Ray 01/20/25 08:14 IMPRESSION: No focal consolidation. Mild perihilar bronchial wall thickening, findings suggestive of respiratory bronchiolitis. Labs Labs: Laboratory Results - last 24 hr 01/20/25 01/20/25 01/21/25 15:42 20:25 03:35 WBC 10.8 H RBC 3.95 L Hgb 12.2 Hct 37.3 MCV 94.4 MCH 30.9 MCHC 32.7 RDW 12.6 Plt Count 276 MPV 10.3 Sodium 134 L Potassium 3.2 L Chloride 98 Carbon Dioxide 31 H Anion Gap 5 BUN 24 H Creatinine 1.38 H Estim Creat Clear Calc 31 Estimated GFR 37 L Glucose 126 H POC Capillary Glucose 185 H 184 H Calcium 8.4 Magnesium 1.7 01/21/25 01/21/25 07:20 11:25 WBC RBC Hgb Hct MCV MCH MCHC RDW Plt Count MPV Sodium Potassium Chloride Carbon Dioxide Anion Gap BUN Creatinine Estim Creat Clear Calc Estimated GFR Glucose POC Capillary Glucose 101 145 H Calcium Magnesium Quality VTE Prophylaxis VTE prophylaxis: mechanical ordered and pharmacologic ordered
--- NOTE | 2025-01-21 16:28 | PC.NURSE ---
Per respiratory the patient is concerned for albuterol treatment due to past allergy and causing syncope. No complaints at this time. Received order to change to xopanex and cancel albuterol. Order read back and verified.
[2025-01-21] MEDS: ACETAMINOPHEN 325 MG TABLET 650 MG PO (16:49)
[2025-01-21] MEDS: INSULIN GLARGINE (*BKC) 100 UNITS/ML 38 UNITS SUB-Q (20:43)
[2025-01-21] MEDS: ROSUVASTATIN 20 MG TABLET PO (20:45)
[2025-01-21] MEDS: IPRATROPIUM BR 0.02% INH SOLN 0.5 MG/2.5 ML VIAL INHALATION (21:18)
[2025-01-22] VITALS (29 sets, daily range): BP systolic 80–110; BP diastolic 53–67; PULSE 78–105; RESP 16–20; TEMP 36.4–36.8; O2SAT 93–100
[2025-01-22] MEDS: IPRATROPIUM BR 0.02% INH SOLN 0.5 MG/2.5 ML VIAL INHALATION ×4 (02:05→20:18)
[2025-01-22 04:13] LABS: Hematocrit 38.4 % (37.0-47.0); Hemoglobin 12.6 g/dL (12.0-15.0); Mean Corpuscular HGB Conc 32.8 g/dl (32-36); Mean Corpuscular Hemoglobin 31.0 pg (26-34); Mean Corpuscular Volume 94.6 fl (80-100); Platelet Count Result 268 k/mm3 (150-375); Red Blood Count 4.06 M/mm3 (4.2-5.4); White Blood Count 10.3 K/mm3 (4.5-10.0)
[2025-01-22 04:26] LABS: Anion Gap 5 mmol/L (4-12); Blood Urea Nitrogen 24 mg/dL (7-17); Calcium 8.6 mg/dL (8.4-10.2); Carbon Dioxide 29 mmol/L (22-30); Chloride 101 mmol/L (98-107); Estimated CRCL calculation 34 ml/min; Estimated Glomerular Filt Rate 42; Glucose 88 mg/dL (65-110); Magnesium 1.9 mg/dL (1.6-2.3); Potassium 3.6 mmol/L (3.4-5.0); Sodium 135 mmol/L (137-145)
[2025-01-22] MEDS: BUDESONIDE RESPULE NEB 0.5 MG/2 ML AMP INHALATION ×2 (08:05→20:18)
[2025-01-22] MEDS: VENLAFAXINE HCL XR 75 MG CAP.ER.24H 150 MG PO (08:37)
[2025-01-22] MEDS: APIXABAN 5 MG TABLET PO ×2 (08:37→20:57)
[2025-01-22] MEDS: CLOPIDOGREL BISULFATE 75 MG TABLET PO (08:38)
[2025-01-22] MEDS: DOXYCYCLINE HYCLATE 100 MG TABLET PO ×2 (08:38→20:56)
[2025-01-22] MEDS: EMPAGLIFLOZIN 10 MG TABLET PO (08:38)
[2025-01-22] MEDS: BENZONATATE 100 MG CAPSULE PO ×3 (08:38→20:56)
[2025-01-22] MEDS: guaiFENesin 12 HR 600 MG TABCR PO ×2 (08:38→20:56)
--- NOTE | 2025-01-22 09:06 | P.PNIM_ITS ---
Progress Note: A&P Assessment and Plan (1) ST elevation (STEMI) myocardial infarction: Code(s): I21.3 - ST elevation (STEMI) myocardial infarction of unspecified site Status: Acute Assessment and Plan: 1 stent to the LAD on 01/14/2025 by Cardiology Holding losartan due to soft blood pressures Decreased dose of Coreg Continue ticagrelor, rosuvastatin (2) Hyperlipidemia LDL goal <70: Code(s): E78.5 - Hyperlipidemia, unspecified Status: Acute Assessment and Plan: Continue statin (3) Diabetes: Qualifiers: Diabetes mellitus complication status: without complication Diabetes mellitus termite control servicer insulin use: with termite control servicer use Diabetes mellitus type: type 2 Qualified Code(s): E11.9 - Type 2 diabetes mellitus without complications; Z79.4 - detention (current) use of insulin Code(s): E11.9 - Type 2 diabetes mellitus without complications Status: Acute Assessment and Plan: Diabetic diet Accu-Cheks a.c. HS Continue home diabetic medications SSI (4) Anxiety and depression: Code(s): F41.9 - Anxiety disorder, unspecified; F32.A - Depression, unspecified Status: Acute Assessment and Plan: Continue venlafaxine (5) Cough: Code(s): R05.9 - Cough, unspecified Status: Acute Assessment and Plan: Sputum clear Chest x-ray clear Tessalon Perles and guaifenesin Clear to Plan 79-year-old female presents the hospital on 01/14/2025 with complaints of chest pain. She was found to have a ST-elevation myocardial infarction and was taken to the distillery laborer that day. She had a PCI to the LAD with 1 stent placed. Patient is allergic to aspirin she was started on ticagrelor, carvedilol, lisinopril, rosuvastatin. On 01/15/2025 around noon the patient had increased ST elevation in leads V1 and V2, Dr. Rios is concerned about a possible aneurysm will continue with current medical management at this time however if the patient complains of chest pain, has decreased oxygen saturations or decreasing her blood pressure Dr. Rios take her back to the distillery laborer. Chest x-ray with the findings of CHF. Echo with severe cardiomyopathy with EF 20-25%. Patient started on diuresis with IV Lasix. Repeat Chest x-ray showed findings of respiratory bronchiolitis and was treated with doxycycline. Sputum culture with Haemophilus influenzae. With penicillin allergy will continue doxycycline as ordered. Patient will need LifeVest. Patient on anticoagulation for paroxysmal atrial fibrillation which will be continued. Patient intolerant to aspirin given facial swelling with potential compromise respiratory system and hence on Eliquis and Plavix. Continue statin. For ischemic cardiomyopathy she is on Toprol and losartan blood pressure limiting up titration of these medications. PT OT recommend home health which has been arranged with the help of care coordination. Do not resuscitate and refuses LifeVest Respiratory bronchiolitis bronchiolitis, gave Pulmicort nebs, doxycycline, will give prednisone DVT profile: Apixaban Subjective Date/time seen: 01/22/25 09:06 Interval history: No overnight events. Still has cough. Dry. No shortness of breath or chest pain Review of Systems Review of Systems: All systems reviewed & are unremarkable except as noted in HPI and below Exam Narrative: Patient is comfortable, NAD HEENT: eyes are clear and none icteric LUNGS: Coarse breath sounds end-expiratory rhonchi HEART: RR S1S2 ABD: BS+, Soft and nontender Lower extremities: no edema SKIN: nonjaundiced Neuro: grossly intact. Objective Data Vital Signs Vital Signs: Vital Signs - 24 hr 01/21/25 10:00 01/21/25 11:50 01/21/25 12:00 Temperature 97.9 F Pulse Rate 99 62 109 H Respiratory Rate 20 Blood Pressure 84/50 L Pulse Oximetry 99 Oxygen Delivery Oxygen Flow Rate 01/21/25 13:57 01/21/25 14:00 01/21/25 14:06 Temperature Pulse Rate 96 96 98 Respiratory Rate 20 20 Blood Pressure Pulse Oximetry Oxygen Delivery Oxygen Flow Rate 01/21/25 15:37 01/21/25 15:59 01/21/25 16:00 Temperature 98.1 F Pulse Rate 102 H 101 H Respiratory Rate 24 H Blood Pressure 93/65 L 98/60 L Pulse Oximetry 97 Oxygen Delivery Oxygen Flow Rate 01/21/25 18:00 01/21/25 19:52 01/21/25 20:00 Temperature 98.2 F Pulse Rate 93 93 106 H Respiratory Rate 20 Blood Pressure 95/60 L Pulse Oximetry 95 95 Oxygen Delivery Room Air Oxygen Flow Rate 01/21/25 20:00 01/21/25 21:19 01/21/25 21:24 Temperature Pulse Rate 94 96 96 Respiratory Rate 20 Blood Pressure Pulse Oximetry 95 Oxygen Delivery Room Air Oxygen Flow Rate 01/21/25 21:33 01/21/25 22:00 01/21/25 22:30 Temperature Pulse Rate 100 101 H Respiratory Rate 20 Blood Pressure Pulse Oximetry 87 L Oxygen Delivery Nasal Cannula Oxygen Flow Rate 2 01/21/25 22:33 01/21/25 23:47 01/22/25 00:00 Temperature 98.2 F Pulse Rate 95 101 H Respiratory Rate 20 Blood Pressure 100/59 L Pulse Oximetry 95 96 Oxygen Delivery Nasal Cannula Oxygen Flow Rate 2 01/22/25 00:00 01/22/25 02:00 01/22/25 02:05 Temperature Pulse Rate 91 96 86 Respiratory Rate 20 Blood Pressure Pulse Oximetry 95 Oxygen Delivery Room Air Oxygen Flow Rate 01/22/25 02:11 01/22/25 04:00 01/22/25 04:00 Temperature Pulse Rate 88 90 90 Respiratory Rate 20 Blood Pressure Pulse Oximetry 95 Oxygen Delivery Room Air Oxygen Flow Rate 01/22/25 04:13 01/22/25 06:00 01/22/25 07:57 Temperature 98.1 F 98.2 F Pulse Rate 91 86 91 Respiratory Rate 20 16 Blood Pressure 98/61 L 93/53 L Pulse Oximetry 96 98 Oxygen Delivery Oxygen Flow Rate 01/22/25 08:06 01/22/25 08:07 01/22/25 08:16 Temperature Pulse Rate 84 82 Respiratory Rate 20 20 Blood Pressure Pulse Oximetry 93 Oxygen Delivery Nasal Cannula Oxygen Flow Rate 1 Intake/Output Intake/Output: Intake & Output 01/19/25 01/20/25 01/21/25 01/22/25 23:59 23:59 23:59 23:59 Intake Total 2736 1464 1686 1030 Output Total 3600 1175 1100 500 Balance -864 289 586 530 Meds/Results Medications: Active Medications Generic Name Dose Route Start Last Admin Trade Name Freq PRN Reason Stop Dose Admin Acetaminophen 650 mg 01/21/25 16:22 01/21/25 16:49 Acetaminophen 325 Mg Tablet PO 650 mg Q6H PRN Administration Mild Pain (1-3) or Fever Apixaban 5 mg 01/15/25 10:55 01/22/25 08:37 Apixaban 5 Mg Tablet PO 5 mg Q12HR DOYLE Administration Benzonatate 100 mg 01/14/25 13:00 01/22/25 08:38 Benzonatate 100 Mg Capsule PO 100 mg TID DOYLE Administration Budesonide 0.5 mg 01/20/25 09:50 01/22/25 08:05 Budesonide Respule Neb 0.5 Mg/2 Ml Amp INHALATION 0.5 mg Q12HRT DOYLE Administration Clopidogrel Bisulfate 75 mg 01/16/25 09:00 01/22/25 08:38 Clopidogrel Bisulfate 75 Mg Tablet PO 75 mg DAILY DOYLE Administration Dextrose 12.5 gm 01/14/25 08:08 Dextrose 50% 25 Gm/50 Ml Syringe IV PUSH PRN PRN Hypoglycemia Protocol Doxycycline Hyclate 100 mg 01/18/25 22:30 01/22/25 08:38 Doxycycline Hyclate 100 Mg Tablet PO 01/23/25 21:01 100 mg Q12HR DOYLE Administration Empagliflozin 10 mg 01/19/25 09:00 01/22/25 08:38 Empagliflozin 10 Mg Tablet PO 10 mg DAILY DOYLE Administration Fluticasone Propionate 1 spray 01/15/25 21:00 01/22/25 08:38 Fluticasone Propionate 0.05% Na Spr 16 Gm Btl (*Bkc) NASAL Not Given Q12HR DOYLE Glucagon 1 mg 01/14/25 08:08 Glucagon For Inj 1 Mg Vial IM PRN PRN Hypoglycemia Protocol Glucose 15 gm 01/14/25 08:08 Glucose Oral Gel 15 Gm Of Glucse In 37.5 Gm Tube PO PRN PRN Hypoglycemia Protocol Guaifenesin 600 mg 01/14/25 21:00 01/22/25 08:38 Guaifenesin 12 Hr 600 Mg Tabcr PO 600 mg Q12HR DOYLE Administration Guaifenesin/Dextromethorphan 10 ml 01/14/25 09:03 01/21/25 20:59 Guaifenesin/Dextromethorphan 10 Ml Udc PO 10 ml Q4H PRN Administration Cough Dextrose 1,000 mls @ 100 mls/hr 01/14/25 08:08 Dextrose 5% 1,000 Ml IVPB PRN PRN Hypoglycemia Protocol Insulin Aspart 2 - 4 units 01/14/25 21:00 01/21/25 20:40 Insulin Aspart (*Bkc) 100 Units/Ml SUB-Q Not Given HS DOYLE Protocol Insulin Aspart 4 - 8 units 01/14/25 12:00 01/22/25 07:42 Insulin Aspart (*Bkc) 100 Units/Ml SUB-Q Not Given TIDWM DOYLE Protocol Insulin Glargine 38 units 01/15/25 21:00 01/21/25 20:43 Insulin Glargine (*Bkc) 100 Units/Ml SUB-Q 38 units HS DOYLE Administration Ipratropium Fingal 0.5 mg 01/21/25 20:00 01/22/25 08:05 Ipratropium Br 0.02% Inh Soln 0.5 Mg/2.5 Ml Vial INHALATION 0.5 mg Q6HRT DOYLE Administration Levalbuterol HCl 0.63 mg 01/21/25 20:00 01/22/25 08:05 Levalbuterol Neb 1.25 Mg/3 Ml INHALATION 0.63 mg Q6HRT DOYLE Administration Losartan Potassium 12.5 mg 01/14/25 09:00 01/14/25 09:22 Losartan Potassium 12.5 Mg Tablet PO 12.5 mg On Hold: 01/15/25 07:59 DAILY DOYLE Administration Metoprolol Succinate 25 mg 01/20/25 09:00 01/21/25 07:57 Metoprolol Succinate Ext Rel 25 Mg Tabcr PO 25 mg On Hold: 01/21/25 12:29 QAM DOYEL Administration Ondansetron HCl 4 mg 01/14/25 09:03 01/16/25 12:27 Ondansetron Inj 4 Mg/2 Ml Vial IV PUSH 4 mg Q6H PRN Administration Nausea And Vomiting Rosuvastatin Calcium 20 mg 01/15/25 21:00 01/21/25 20:45 Rosuvastatin 20 Mg Tablet PO 20 mg QHS DOYLE Administration Sitagliptin Phosphate 50 mg 01/22/25 09:00 01/22/25 08:38 Sitagliptin Phosphate 50 Mg Tablet PO 50 mg QAM DOYLE Administration Sodium Chloride 1 spray 01/16/25 14:19 01/17/25 21:07 Saline 0.65% Frank Soln 44 Ml Btl NASAL 1 spray Q6HR PRN Administration Congestion Venlafaxine HCl 150 mg 01/15/25 09:00 01/22/25 08:37 Venlafaxine Hcl Xr 75 Mg Cap.Er.24h PO 150 mg DAILY DOYLE Administration Radiology Results: ITS Impressions Chest/Abdomen/Pelvis CTA 01/14/25 08:21 IMPRESSION: 1. Normal caliber aorta with no dissection. No acute cardiopulmonary disease or acute intra-abdominal/pelvic process. 2. Diverticulosis. Abdomen X-Ray 01/16/25 13:09 Impression: 1. No acute abnormality. Chest X-Ray 01/20/25 08:14 IMPRESSION: No focal consolidation. Mild perihilar bronchial wall thickening, findings suggestive of respiratory bronchiolitis. Labs Labs: Laboratory Results - last 24 hr 09/01/21/25 01/21/25 11:25 15:22 20:15 WBC RBC Hgb Hct MCV MCH MCHC RDW Plt Count MPV Sodium Potassium Chloride Carbon Dioxide Anion Gap BUN Creatinine Estim Creat Clear Calc Estimated GFR Glucose POC Capillary Glucose 145 H 179 H 159 H Calcium Magnesium 01/22/25 01/22/25 04:08 07:36 WBC 10.3 H RBC 4.06 L Hgb 12.6 Hct 38.4 MCV 94.6 MCH 31.0 MCHC 32.8 RDW 12.8 Plt Count 268 MPV 10.2 Sodium 135 L Potassium 3.6 Chloride 101 Carbon Dioxide 29 Anion Gap 5 BUN 24 H Creatinine 1.23 H Estim Creat Clear Calc 34 Estimated GFR 42 L Glucose 88 POC Capillary Glucose 85 Calcium 8.6 Magnesium 1.9
--- NOTE | 2025-01-22 09:30 | PCNWS ---
Weekly nutritional screen. Patient is tolerating current Heart healthy, diabetic consistent carb diet with adequate intake, 50-100% last 48 hours, improved. No weight loss reported. No nutritional needs at this time.
--- NOTE | 2025-01-22 10:34 | PN_ITS ---
Report recreated on 02/04/25. Original report was signed by Drea Mccrary APRN on 01/22/25 at 1039. Progress Note: A&P Assessment and Plan (1) ST elevation (STEMI) myocardial infarction: Code(s): I21.3 - ST elevation (STEMI) myocardial infarction of unspecified site Status: Acute Assessment and Plan: Anterior STEMI status post primary PCI to mid LAD (2) Paroxysmal atrial fibrillation: Code(s): I48.0 - Paroxysmal atrial fibrillation Status: Acute Assessment and Plan: On anticoagulation (3) Ischemic cardiomyopathy: Code(s): I25.5 - Ischemic cardiomyopathy Status: Acute Assessment and Plan: Echo shows severely depressed LV ejection fraction of 20-25%. The entire septum, anterior wall, apex are severely hypokinetic. Mild mitral regurgitation noted. (4) Electrolyte abnormality: Code(s): E87.8 - Other disorders of electrolyte and fluid balance, not elsewhere classified Status: Acute Assessment and Plan: Hypokalemia with potassium of 3.3 Creatinine 1.2 today (5) Acute systolic (congestive) heart failure: Code(s): I50.21 - Acute systolic (congestive) heart failure Status: Acute Assessment and Plan: Secondary to large anterior ID Plan 79-year-old woman with history of TIA, insulin-dependent diabetes, paroxysmal atrial fibrillation, and hyperlipidemia presented with chest discomfort found to have anterior STEMI for which she underwent primary PCI to mid LAD Anterior STEMI -status post primary PCI -she is intolerant to aspirin given that she has facial swelling with potential compromise of respiratory system. Continue Eliquis and clopidogrel -continue statin -cardiac rehab in 1 month -f/u echo demonstrates EF unchanged 25-30% with mid anterior wall, inferolateral wall, anteroseptal and apical septum wall akinesis and hyokinesis of the inferior wall. -Patient currently chest pain free and troponin negative this admission Paroxysmal atrial fibrillation on chronic anticoagulation -continue Eliquis Hypotension -Her meds are currently on hold Hypokalemia -improved Ischemic cardiomyopathy -guideline directed medical therapy as tolerated -Her Toprol XL 25 mg and losatan 12.5 mg are on hold d/t hypotension. -added empagliflozin 10 mg daily which continues -would resume low dose medication therapy as BP tolerates, will trial Toprol XL 12.5 mg daily as tachycardia noted on monitor -repeat TTE in 40 days post revascularization. If EF remains less than 35% she will need an ICD Renal insufficiency -CR up to 1.38-->1.23 today she s/p IV diuresis, oral lasix has been on hold. Would recommend 20 mg PO daily prn at discharge. Persistent cough -CXR today suggestive of bronchiolitis -respiratory panel negative -management as per primary team Encourage activity. Lifevest ordered patient unclear if wants will discuss with daughter Will add Toprol XL 12.5 mg daily monitoring BP Would plan lasix 20 mg daily prn at ma Will need 1-2 week f/u in office at ma Subjective Date/time seen: 01/22/25 10:34 Interval history: Chest pain H&P-Narrative: 79-year-old female presents the hospital on 01/14/2025 with complaints of chest pain. She was found to have a ST-elevation myocardial infarction I was taken to the laborer shell[facility] processing that day. She had a PICC to the LAD with 1 stent placed. Patient is allergic to aspirin she was started on ticagrelor, carvedilol, lisinopril, rosuvastatin. On 01/15/2025 around noon the patient had increased ST elevation in leads V1 and V2, Dr. Rios is concerned about a possible aneurysm will continue with current medical management at this time however if the patient complains of chest pain, has decreased oxygen saturations or decreasing her blood pressure Dr. Rios take her back to the laborer shellfish processing. 79 y/o female presented with CP and patient was found to have anterior STEMI and was taken to cardiac cath had primary PCI to mid LAD, patient stats feeling much better however she does have cough, patient did have chest x-ray and it shows pulmonary edema, patient has severe cardiomyopathy with EF 20-25%, patient being gently diuresed, will monitor and plan, will have PT/OT to evaluate the patient. 01/19/25: Patient is sitting up in chair, she reports feeling as though she cannot take a deep breath in and cough. No chest pain or pressure. No dizziness or palpitations. Overnight IV lasix was ordered however, no IV access and have been unable to obtain. 01/20/25: Patient sitting up in bed. She continues to experience cough with little sputum production. No chest pain or pressure. No new shortness of breath. No dizziness or palpitations. 01/21/25: Patient feeling improved this am. She reports cough improved and now on room air. Denies any chest pain or pressure. No shortness of breath at this time. No dizziness 01/22/25: Patient is sitting up in bed. She got up this am for bath and is feeling better. No c/o any chest pain or SOB at this time. No dizziness or palpitations. Review of Systems Review of Systems: All systems reviewed & are unremarkable except as noted in HPI and below (in HPI ) Exam Narrative: General: Alert oriented x3, no acute distress Neck: Supple, no JVD Chest: decreased in bases Cardiac: S1, S2 +, regular rate, regular rhythm, no murmurs or rubs Extremities: No pedal edema, no skin rash Neurologic: Alert and oriented x3, no focal neurological deficits Objective Data Vital Signs Vital Signs: Vital Signs - 24 hr 01/21/25 11:50 01/21/25 12:00 01/21/25 13:57 Temperature 36.6 C Pulse Rate 62 109 H 96 Respiratory Rate 20 20 Blood Pressure 84/50 L Pulse Oximetry 99 Oxygen Delivery Oxygen Flow Rate 01/21/25 14:00 01/21/25 14:06 01/21/25 15:37 Temperature 36.7 C Pulse Rate 96 98 102 H Respiratory Rate 20 24 H Blood Pressure 93/65 L Pulse Oximetry 97 Oxygen Delivery Oxygen Flow Rate 01/21/25 15:59 01/21/25 16:00 01/21/25 18:00 Temperature Pulse Rate 101 H 93 Respiratory Rate Blood Pressure 98/60 L Pulse Oximetry Oxygen Delivery Oxygen Flow Rate 01/21/25 19:52 01/21/25 20:00 01/21/25 20:00 Temperature 36.8 C Pulse Rate 93 106 H 94 Respiratory Rate 20 Blood Pressure 95/60 L Pulse Oximetry 95 95 Oxygen Delivery Room Air Oxygen Flow Rate 01/21/25 21:19 01/21/25 21:24 01/21/25 21:33 Temperature Pulse Rate 96 96 100 Respiratory Rate 20 20 Blood Pressure Pulse Oximetry 95 Oxygen Delivery Room Air Oxygen Flow Rate 01/21/25 22:00 01/21/25 22:30 01/21/25 22:33 Temperature Pulse Rate 101 H Respiratory Rate Blood Pressure Pulse Oximetry 87 L 95 Oxygen Delivery Nasal Cannula Nasal Cannula Oxygen Flow Rate 2 2 01/21/25 23:47 01/22/25 00:00 01/22/25 00:00 Temperature 36.8 C Pulse Rate 95 101 H 91 Respiratory Rate 20 Blood Pressure 100/59 L Pulse Oximetry 96 95 Oxygen Delivery Room Air Oxygen Flow Rate 01/22/25 02:00 01/22/25 02:05 01/22/25 02:11 Temperature Pulse Rate 96 86 88 Respiratory Rate 20 20 Blood Pressure Pulse Oximetry Oxygen Delivery Oxygen Flow Rate 01/22/25 04:00 01/22/25 04:00 01/22/25 04:13 Temperature 36.7 C Pulse Rate 90 90 91 Respiratory Rate 20 Blood Pressure 98/61 L Pulse Oximetry 95 96 Oxygen Delivery Room Air Oxygen Flow Rate 01/22/25 06:00 01/22/25 07:57 01/22/25 08:00 Temperature 36.8 C Pulse Rate 86 91 93 Respiratory Rate 16 Blood Pressure 93/53 L Pulse Oximetry 98 Oxygen Delivery Oxygen Flow Rate 01/22/25 08:06 01/22/25 08:07 01/22/25 08:16 Temperature Pulse Rate 84 82 Respiratory Rate 20 20 Blood Pressure Pulse Oximetry 93 Oxygen Delivery Nasal Cannula Oxygen Flow Rate 1 01/22/25 09:52 Temperature Pulse Rate 105 H Respiratory Rate Blood Pressure Pulse Oximetry Oxygen Delivery Oxygen Flow Rate Intake/Output Intake/Output: Intake & Output 01/19/25 01/20/25 01/21/25 01/22/25 23:59 23:59 23:59 23:59 Intake Total 2736 1464 1686 1030 Output Total 3600 1175 1100 500 Balance -864 289 586 530 Meds/Results Medications: Active Medications Generic Name Dose Route Start Last Admin Trade Name Freq PRN Reason Stop Dose Admin Acetaminophen 650 mg 01/21/25 16:22 01/21/25 16:49 Acetaminophen 325 Mg Tablet PO 650 mg Q6H PRN Administration Mild Pain (1-3) or Fever Apixaban 5 mg 01/15/25 10:55 01/22/25 08:37 Apixaban 5 Mg Tablet PO 5 mg Q12HR DOYLE Administration Benzonatate 100 mg 01/14/25 13:00 01/22/25 08:38 Benzonatate 100 Mg Capsule PO 100 mg TID DOYLE Administration Budesonide 0.5 mg 01/20/25 09:50 01/22/25 08:05 Budesonide Respule Neb 0.5 Mg/2 Ml Amp INHALATION 0.5 mg Q12HRT DOYLE Administration Clopidogrel Bisulfate 75 mg 01/16/25 09:00 01/22/25 08:38 Clopidogrel Bisulfate 75 Mg Tablet PO 75 mg DAILY DOYLE Administration Dextrose 12.5 gm 01/14/25 08:08 Dextrose 50% 25 Gm/50 Ml Syringe IV PUSH PRN PRN Hypoglycemia Protocol Doxycycline Hyclate 100 mg 01/18/25 22:30 01/22/25 08:38 Doxycycline Hyclate 100 Mg Tablet PO 01/23/25 21:01 100 mg Q12HR DOYLE Administration Empagliflozin 10 mg 01/19/25 09:00 01/22/25 08:38 Empagliflozin 10 Mg Tablet PO 10 mg DAILY DOYLE Administration Fluticasone Propionate 1 spray 01/15/25 21:00 01/22/25 08:38 Fluticasone Propionate 0.05% Na Spr 16 Gm Btl (*Bkc) NASAL Not Given Q12HR DOYLE Glucagon 1 mg 01/14/25 08:08 Glucagon For Inj 1 Mg Vial IM PRN PRN Hypoglycemia Protocol Glucose 15 gm 01/14/25 08:08 Glucose Oral Gel 15 Gm Of Glucse In 37.5 Gm Tube PO PRN PRN Hypoglycemia Protocol Guaifenesin 600 mg 01/14/25 21:00 01/22/25 08:38 Guaifenesin 12 Hr 600 Mg Tabcr PO 600 mg Q12HR DOYLE Administration Guaifenesin/Dextromethorphan 10 ml 01/14/25 09:03 01/21/25 20:59 Guaifenesin/Dextromethorphan 10 Ml Udc PO 10 ml Q4H PRN Administration Cough Dextrose 1,000 mls @ 100 mls/hr 01/14/25 08:08 Dextrose 5% 1,000 Ml IVPB PRN PRN Hypoglycemia Protocol Insulin Aspart 2 - 4 units 01/14/25 21:00 01/21/25 20:40 Insulin Aspart (*Bkc) 100 Units/Ml SUB-Q Not Given HS DOYLE Protocol Insulin Aspart 4 - 8 units 01/14/25 12:00 01/22/25 07:42 Insulin Aspart (*Bkc) 100 Units/Ml SUB-Q Not Given TIDWM DOYLE Protocol Insulin Glargine 38 units 01/15/25 21:00 01/21/25 20:43 Insulin Glargine (*Bkc) 100 Units/Ml SUB-Q 38 units HS DOYLE Administration Ipratropium [place] 0.5 mg 01/21/25 20:00 01/22/25 08:05 Ipratropium Br 0.02% Inh Soln 0.5 Mg/2.5 Ml Vial INHALATION 0.5 mg Q6HRT DOYLE Administration Levalbuterol HCl 0.63 mg 01/21/25 20:00 01/22/25 08:05 Levalbuterol Neb 1.25 Mg/3 Ml INHALATION 0.63 mg Q6HRT DOYLE Administration Losartan Potassium 12.5 mg 01/14/25 09:00 01/14/25 09:22 Losartan Potassium 12.5 Mg Tablet PO 12.5 mg On Hold: 01/15/25 07:59 DAILY DOYLE Administration Metoprolol Succinate 25 mg 01/20/25 09:00 01/21/25 07:57 Metoprolol Succinate Ext Rel 25 Mg Tabcr PO 25 mg On Hold: 01/21/25 12:29 QAM DOYLE Administration Ondansetron HCl 4 mg 01/14/25 09:03 01/16/25 12:27 Ondansetron Inj 4 Mg/2 Ml Vial IV PUSH 4 mg Q6H PRN Administration Nausea And Vomiting Rosuvastatin Calcium 20 mg 01/15/25 21:00 01/21/25 20:45 Rosuvastatin 20 Mg Tablet PO 20 mg QHS DOYLE Administration Sitagliptin Phosphate 50 mg 01/22/25 09:00 01/22/25 08:38 Sitagliptin Phosphate 50 Mg Tablet PO 50 mg QAM DOYLE Administration Sodium Chloride 1 spray 01/16/25 14:19 01/17/25 21:07 Saline 0.65% Frank Soln 44 Ml Btl NASAL 1 spray Q6HR PRN Administration Congestion Venlafaxine HCl 150 mg 01/15/25 09:00 01/22/25 08:37 Venlafaxine Hcl Xr 75 Mg Cap.Er.24h PO 150 mg DAILY DOYLE Administration Radiology Results: ITS Impressions Chest/Abdomen/Pelvis CTA 01/14/25 08:21 IMPRESSION: 1. Normal caliber aorta with no dissection. No acute cardiopulmonary disease or acute intra-abdominal/pelvic process. 2. Diverticulosis. Abdomen X-Ray 01/16/25 13:09 Impression: 1. No acute abnormality. Chest X-Ray 01/20/25 08:14 IMPRESSION: No focal consolidation. Mild perihilar bronchial wall thickening, findings suggestive of respiratory bronchiolitis. Labs Labs: Laboratory Results - last 24 hr 01/21/25 01/21/25 01/21/25 11:25 15:22 20:15 WBC RBC Hgb Hct MCV MCH MCHC RDW Plt Count MPV Sodium Potassium Chloride Carbon Dioxide Anion Gap BUN Creatinine Estim Creat Clear Calc Estimated GFR Glucose POC Capillary Glucose 145 H 179 H 159 H Calcium Magnesium 01/22/25 01/22/25 04:08 07:36 WBC 10.3 H RBC 4.06 L Hgb 12.6 Hct 38.4 MCV 94.6 MCH 31.0 MCHC 32.8 RDW 12.8 Plt Count 268 MPV 10.2 Sodium 135 L Potassium 3.6 Chloride 101 Carbon Dioxide 29 Anion Gap 5 BUN 24 H Creatinine 1.23 H Estim Creat Clear Calc 34 Estimated GFR 42 L Glucose 88 POC Capillary Glucose 85 Calcium 8.6 Magnesium 1.9 Please be advised this is a medical document. It is intended for [id number] communication. It is written in medical language and may contain unfamiliar abbreviations or verbiage. Medical documents are intended to carry relevant information, facts as evident, and the clinical opinion of the practitioner at the time of the encounter. This report may have been done utilizing a voice recognition system. Attempts have been made to correct errors. However, there may be uncorrected grammatical, spelling, and recognition errors present. The file time of this note does not necessarily represent the time the patient was seen. Report Initialized date/time: [id number] 01/22/25 / 1036 Electronically signed by: [id number] 01/22/25 1037
[2025-01-22] MEDS: INSULIN ASPART (*BKC) 100 UNITS/ML SUB-Q (20:57)
[2025-01-22] MEDS: INSULIN GLARGINE (*BKC) 100 UNITS/ML 38 UNITS SUB-Q (20:57)
[2025-01-22] MEDS: ROSUVASTATIN 20 MG TABLET PO (20:57)
[2025-01-22] MEDS: FLUTICASONE PROPIONATE 0.05% NA SPR 16 GM BTL (*BKC) 1 SPRAY NASAL (21:05)
[2025-01-23] VITALS (21 sets, daily range): BP systolic 97–119; BP diastolic 60–88; PULSE 74–120; RESP 16–22; TEMP 36.5–36.8; O2SAT 91–99
[2025-01-23] MEDS: IPRATROPIUM BR 0.02% INH SOLN 0.5 MG/2.5 ML VIAL INHALATION ×4 (02:11→21:50)
[2025-01-23 04:34] LABS: Hematocrit 37.7 % (37.0-47.0); Hemoglobin 12.1 g/dL (12.0-15.0); Mean Corpuscular HGB Conc 32.1 g/dl (32-36); Mean Corpuscular Hemoglobin 30.6 pg (26-34); Mean Corpuscular Volume 95.4 fl (80-100); Platelet Count Result 297 k/mm3 (150-375); Red Blood Count 3.95 M/mm3 (4.2-5.4); White Blood Count 10.0 K/mm3 (4.5-10.0)
[2025-01-23 04:52] LABS: Anion Gap 8 mmol/L (4-12); Blood Urea Nitrogen 25 mg/dL (7-17); Calcium 8.6 mg/dL (8.4-10.2); Carbon Dioxide 26 mmol/L (22-30); Chloride 101 mmol/L (98-107); Estimated CRCL calculation 31 ml/min; Estimated Glomerular Filt Rate 38; Glucose 288 mg/dL (65-110); Magnesium 1.8 mg/dL (1.6-2.3); Potassium 4.2 mmol/L (3.4-5.0); Sodium 135 mmol/L (137-145)
[2025-01-23] MEDS: BENZONATATE 100 MG CAPSULE PO ×3 (05:39→21:37)
[2025-01-23] MEDS: BUDESONIDE RESPULE NEB 0.5 MG/2 ML AMP INHALATION ×2 (08:14→21:49)
[2025-01-23] MEDS: VENLAFAXINE HCL XR 75 MG CAP.ER.24H 150 MG PO (09:06)
[2025-01-23] MEDS: METOPROLOL SUCCINATE EXT REL 12.5 MG TABCR PO (09:06)
[2025-01-23] MEDS: DOXYCYCLINE HYCLATE 100 MG TABLET PO ×2 (09:06→21:36)
[2025-01-23] MEDS: guaiFENesin 12 HR 600 MG TABCR PO (09:06)
[2025-01-23] MEDS: CLOPIDOGREL BISULFATE 75 MG TABLET PO (09:07)
[2025-01-23] MEDS: APIXABAN 5 MG TABLET PO ×2 (09:07→21:37)
[2025-01-23] MEDS: FLUTICASONE PROPIONATE 0.05% NA SPR 16 GM BTL (*BKC) 1 SPRAY NASAL (09:07)
[2025-01-23] MEDS: EMPAGLIFLOZIN 10 MG TABLET PO (09:07)
[2025-01-23] MEDS: INSULIN ASPART (*BKC) 100 UNITS/ML SUB-Q ×3 (09:07→21:36)
--- NOTE | 2025-01-23 13:31 | P.PNIM_ITS ---
Progress Note: A&P Assessment and Plan (1) ST elevation (STEMI) myocardial infarction: Code(s): I21.3 - ST elevation (STEMI) myocardial infarction of unspecified site Status: Acute (2) Hyperlipidemia LDL goal <70: Code(s): E78.5 - Hyperlipidemia, unspecified Status: Acute (3) Diabetes: Qualifiers: Diabetes mellitus type: type 2 Diabetes mellitus correction insulin use: with technician terminal and repeater use Diabetes mellitus complication status: without complication Qualified Code(s): E11.9 - Type 2 diabetes mellitus without complications; Z79.4 - intermodal dispatcher (current) use of insulin Code(s): E11.9 - Type 2 diabetes mellitus without complications Status: Acute (4) Anxiety and depression: Code(s): F41.9 - Anxiety disorder, unspecified; F32.A - Depression, unspecified Status: Acute (5) Cough: Code(s): R05.9 - Cough, unspecified Status: Acute Plan 79-year-old female presents the hospital on 01/14/2025 with complaints of chest pain. She was found to have a ST-elevation myocardial infarction and was taken to the analyst microbiology lab that day. She had a PCI to the LAD with 1 stent placed. Patient is allergic to aspirin she was started on ticagrelor, carvedilol, lisinopril, rosuvastatin. On 01/15/2025 around noon the patient had increased ST elevation in leads V1 and V2, Dr. Rios is concerned about a possible aneurysm will continue with current medical management at this time however if the patient complains of chest pain, has decreased oxygen saturations or decreasing her blood pressure Dr. Rios take her back to the analyst microbiology lab. Chest x-ray with the findings of CHF. Echo with severe cardiomyopathy with EF 20-25%. Patient started on diuresis with IV Lasix. Repeat Chest x-ray showed findings of respiratory bronchiolitis and was treated with doxycycline. Sputum culture with Haemophilus influenzae. With penicillin allergy will continue doxycycline as ordered. Patient will need LifeVest. Patient on anticoagulation for paroxysmal atrial fibrillation which will be continued. Patient intolerant to aspirin given facial swelling with potential compromise respiratory system and hence on Eliquis and Plavix. Continue statin. For ischemic cardiomyopathy she is on Toprol and losartan blood pressure limiting up titration of these medications. PT OT recommend home health which has been arranged with the help of care coordination. Do not resuscitate and refuses LifeVest Respiratory bronchiolitis bronchiolitis, gave Pulmicort nebs, doxycycline, started on prednisone 01/22/2025 DVT profile: Apixaban Subjective Date/time seen: 01/23/25 13:31 Interval history: No overnight events. Patient still has cough. Agreeable for LifeVest today. Denies any chest pain Review of Systems Review of Systems: All systems reviewed & are unremarkable except as noted in HPI and below Exam Narrative: Patient is comfortable, NAD HEENT: eyes are clear and none icteric LUNGS: Coarse breath sounds no wheezes HEART: RR S1S2 ABD: BS+, Soft and nontender Lower extremities: no edema SKIN: nonjaundiced Neuro: grossly intact. Objective Data Vital Signs Vital Signs: Vital Signs - 24 hr 01/22/25 13:42 01/22/25 13:48 01/22/25 14:00 Temperature Pulse Rate 78 86 97 Respiratory Rate 20 20 Blood Pressure Pulse Oximetry Oxygen Delivery Oxygen Flow Rate Fraction of Inspired Oxygen 01/22/25 15:48 01/22/25 16:00 01/22/25 16:00 Temperature 98 F Pulse Rate 96 94 Respiratory Rate 18 Blood Pressure 80/65 L Pulse Oximetry 94 Oxygen Delivery Room Air Oxygen Flow Rate Fraction of Inspired Oxygen 01/22/25 16:14 01/22/25 18:00 01/22/25 20:00 Temperature 98.2 F Pulse Rate 105 H 101 H Respiratory Rate 16 Blood Pressure 92/64 L 100/59 L Pulse Oximetry 100 Oxygen Delivery Oxygen Flow Rate Fraction of Inspired Oxygen 01/22/25 20:00 01/22/25 20:18 01/22/25 20:23 Temperature Pulse Rate 98 79 Respiratory Rate 20 Blood Pressure Pulse Oximetry 93 Oxygen Delivery Nasal Cannula Oxygen Flow Rate 1 Fraction of Inspired Oxygen 01/22/25 20:33 01/22/25 20:55 01/22/25 22:00 Temperature Pulse Rate 82 82 104 H Respiratory Rate 20 20 Blood Pressure Pulse Oximetry 93 Oxygen Delivery Nasal Cannula Oxygen Flow Rate 2 Fraction of Inspired Oxygen 01/22/25 23:30 01/23/25 00:00 01/23/25 00:00 Temperature 97.6 F Pulse Rate 92 78 83 Respiratory Rate 18 18 Blood Pressure 106/60 Pulse Oximetry 95 95 Oxygen Delivery Nasal Cannula Oxygen Flow Rate 2 Fraction of Inspired Oxygen 28 01/23/25 02:00 01/23/25 02:11 01/23/25 02:22 Temperature Pulse Rate 84 74 74 Respiratory Rate 20 20 Blood Pressure Pulse Oximetry Oxygen Delivery Oxygen Flow Rate Fraction of Inspired Oxygen 01/23/25 03:57 01/23/25 03:57 01/23/25 04:00 Temperature 98.2 F Pulse Rate 94 84 91 Respiratory Rate 20 22 H Blood Pressure 104/88 Pulse Oximetry 95 91 Oxygen Delivery Room Air Oxygen Flow Rate Fraction of Inspired Oxygen 28 01/23/25 06:00 01/23/25 07:51 01/23/25 08:00 Temperature 97.7 F Pulse Rate 76 92 Respiratory Rate 20 Blood Pressure 97/66 L Pulse Oximetry 95 Oxygen Delivery Room Air Oxygen Flow Rate Fraction of Inspired Oxygen 01/23/25 08:00 01/23/25 08:13 01/23/25 08:22 Temperature Pulse Rate 101 H 89 120 H Respiratory Rate 20 20 Blood Pressure Pulse Oximetry Oxygen Delivery Oxygen Flow Rate Fraction of Inspired Oxygen 01/23/25 09:06 01/23/25 10:00 01/23/25 12:00 Temperature Pulse Rate 108 H 105 H Respiratory Rate Blood Pressure Pulse Oximetry Oxygen Delivery Room Air Oxygen Flow Rate Fraction of Inspired Oxygen 01/23/25 12:00 01/23/25 12:00 Temperature 98.0 F Pulse Rate 107 H 107 H Respiratory Rate 20 Blood Pressure 101/60 Pulse Oximetry 99 Oxygen Delivery Oxygen Flow Rate Fraction of Inspired Oxygen Intake/Output Intake/Output: Intake & Output 01/20/25 01/21/25 01/22/25 01/23/25 23:59 23:59 23:59 23:59 Intake Total 1464 1686 1270 1212 Output Total 1175 1100 500 Balance 289 979 892 5954 Meds/Results Medications: Active Medications Generic Name Dose Route Start Last Admin Trade Name Freq PRN Reason Stop Dose Admin Acetaminophen 650 mg 01/21/25 16:22 01/21/25 16:49 Acetaminophen 325 Mg Tablet PO 650 mg Q6H PRN Administration Mild Pain (1-3) or Fever Apixaban 5 mg 01/15/25 10:55 01/23/25 09:07 Apixaban 5 Mg Tablet PO 5 mg Q12HR DOYLE Administration Benzonatate 100 mg 01/22/25 22:00 01/23/25 05:39 Benzonatate 100 Mg Capsule PO 100 mg Q8HR DOYLE Administration Budesonide 0.5 mg 01/20/25 09:50 01/23/25 08:14 Budesonide Respule Neb 0.5 Mg/2 Ml Amp INHALATION 0.5 mg Q12HRT DOYLE Administration Clopidogrel Bisulfate 75 mg 01/16/25 09:00 01/23/25 09:07 Clopidogrel Bisulfate 75 Mg Tablet PO 75 mg DAILY DOYLE Administration Dextrose 12.5 gm 01/14/25 08:08 Dextrose 50% 25 Gm/50 Ml Syringe IV PUSH PRN PRN Hypoglycemia Protocol Doxycycline Hyclate 100 mg 01/18/25 22:30 01/23/25 09:06 Doxycycline Hyclate 100 Mg Tablet PO 01/23/25 21:01 100 mg Q12HR DOYLE Administration Empagliflozin 10 mg 01/19/25 09:00 01/23/25 09:07 Empagliflozin 10 Mg Tablet PO 10 mg DAILY DOYLE Administration Fluticasone Propionate 1 spray 01/15/25 21:00 01/23/25 09:07 Fluticasone Propionate 0.05% Na Spr 16 Gm Btl (*Bkc) NASAL 1 spray Q12HR DOYLE Administration Glucagon 1 mg 01/14/25 08:08 Glucagon For Inj 1 Mg Vial IM PRN PRN Hypoglycemia Protocol Glucose 15 gm 01/14/25 08:08 Glucose Oral Gel 15 Gm Of Glucse In 37.5 Gm Tube PO PRN PRN Hypoglycemia Protocol Guaifenesin 600 mg 01/14/25 21:00 01/23/25 09:06 Guaifenesin 12 Hr 600 Mg Tabcr PO 600 mg Q12HR DOYLE Administration Guaifenesin/Dextromethorphan 10 ml 01/14/25 09:03 01/22/25 23:25 Guaifenesin/Dextromethorphan 10 Ml Udc PO 10 ml Q4H PRN Administration Cough Dextrose 1,000 mls @ 100 mls/hr 01/14/25 08:08 Dextrose 5% 1,000 Ml IVPB PRN PRN Hypoglycemia Protocol Insulin Aspart 2 - 4 units 01/14/25 21:00 01/22/25 20:57 Insulin Aspart (*Bkc) 100 Units/Ml SUB-Q 2 units HS DOYLE Administration Protocol Insulin Aspart 4 - 8 units 01/14/25 12:00 01/23/25 12:00 Insulin Aspart (*Bkc) 100 Units/Ml SUB-Q Not Given TIDWM [facility] Protocol Insulin Glargine 38 units 01/15/25 21:00 01/22/25 20:57 Insulin Glargine (*Bkc) 100 Units/Ml SUB-Q 38 units HS DOYLE Administration Ipratropium [place] 0.5 mg 01/21/25 20:00 01/23/25 02:11 Ipratropium Br 0.02% Inh Soln 0.5 Mg/2.5 Ml Vial INHALATION 0.5 mg Q6HRT DOYLE Administration Levalbuterol HCl 0.63 mg 01/21/25 20:00 01/23/25 08:13 Levalbuterol Neb 1.25 Mg/3 Ml INHALATION 0.63 mg Q6HRT DOYLE Administration Losartan Potassium 12.5 mg 01/14/25 09:00 01/14/25 09:22 Losartan Potassium 12.5 Mg Tablet PO 12.5 mg On Hold: 01/15/25 07:59 DAILY DOYLE Administration Metoprolol Succinate 25 mg 01/20/25 09:00 01/21/25 07:57 Metoprolol Succinate Ext Rel 25 Mg Tabcr PO 25 mg On Hold: 01/21/25 12:29 QAM DOYLE Administration Metoprolol Succinate 12.5 mg 01/23/25 09:00 01/23/25 09:06 Metoprolol Succinate Ext Rel 12.5 Mg Tabcr PO 12.5 mg QAM DOYLE Administration Ondansetron HCl 4 mg 01/14/25 09:03 01/16/25 12:27 Ondansetron Inj 4 Mg/2 Ml Vial IV PUSH 4 mg Q6H PRN Administration Nausea And Vomiting Prednisone 40 mg 01/22/25 14:15 01/23/25 09:06 Prednisone 20 Mg Tablet PO 40 mg DAILY@0800 DOYLE Administration Rosuvastatin Calcium 20 mg 01/15/25 21:00 01/22/25 20:57 Rosuvastatin 20 Mg Tablet PO 20 mg QHS DOYLE Administration Sitagliptin Phosphate 50 mg 01/22/25 09:00 01/23/25 09:07 Sitagliptin Phosphate 50 Mg Tablet PO 50 mg QAM DOYLE Administration Sodium Chloride 1 spray 01/16/25 14:19 01/17/25 21:07 Saline 0.65% Frank Soln 44 Ml Btl NASAL 1 spray Q6HR PRN Administration Congestion Venlafaxine HCl 150 mg 01/15/25 09:00 01/23/25 09:06 Venlafaxine Hcl Xr 75 Mg Cap.Er.24h PO 150 mg DAILY DOYLE Administration Radiology Results: ITS Impressions Chest/Abdomen/Pelvis CTA 01/14/25 08:21 IMPRESSION: 1. Normal caliber aorta with no dissection. No acute cardiopulmonary disease or acute intra-abdominal/pelvic process. 2. Diverticulosis. Abdomen X-Ray 01/16/25 13:09 Impression: 1. No acute abnormality. Chest X-Ray 01/20/25 08:14 IMPRESSION: No focal consolidation. Mild perihilar bronchial wall thickening, findings suggestive of respiratory bronchiolitis. Labs Labs: Laboratory Results - last 24 hr 01/22/25 01/22/25 01/23/25 16:38 19:36 04:18 WBC 10.0 RBC 3.95 L Hgb 12.1 Hct 37.7 MCV 95.4 MCH 30.6 MCHC 32.1 RDW 12.6 Plt Count 297 MPV 10.2 Sodium 135 L Potassium 4.2 Chloride 101 Carbon Dioxide 26 Anion Gap 8 BUN 25 H Creatinine 1.35 H Estim Creat Clear Calc 31 Estimated GFR 38 L Glucose 288 H POC Capillary Glucose 138 H 265 H Calcium 8.6 Magnesium 1.8 01/23/25 01/23/25 06:45 11:56 WBC RBC Hgb Hct MCV MCH MCHC RDW Plt Count MPV Sodium Potassium Chloride Carbon Dioxide Anion Gap BUN Creatinine Estim Creat Clear Calc Estimated GFR Glucose POC Capillary Glucose 251 H 112 H Calcium Magnesium
--- NOTE | 2025-01-23 14:44 | PC.NURSE ---
This patient, Ailyn Neff, was transferred to [[facility] ] on 01/23/25 at 1444. Personal belongings sent with patient. Report given to [MANAN Layne @ 1440 ]. Appropriate documentation sent with patient.
--- NOTE | 2025-01-23 15:19 | ADMGEN ---
This patient, Ailyn Neff, was admitted to [facility] Surg Room 331-02. Patient/family oriented to hospital policies and general routines including ID bracelet, bed and alarms, visiting hours, pain management, procedures, bathroom and other care routines, personal items, smoking policy, room service/diet, and visiting hours. Information on how to activate the Rapid Response Team has been discussed. Patient/Family are encouraged to report perceived risks to care and to ask questions if they do not understand what they are told or what they should do. received report from Adwoa.
[2025-01-23] MEDS: ROSUVASTATIN 20 MG TABLET PO (21:36)
[2025-01-23] MEDS: INSULIN GLARGINE (*BKC) 100 UNITS/ML 38 UNITS SUB-Q (21:36)
[2025-01-23] MEDS: guaiFENesin 12 HR 600 MG TABCR 1200 MG PO (21:37)
[2025-01-24] VITALS (17 sets, daily range): BP systolic 91–117; BP diastolic 51–78; PULSE 93–105; RESP 16–20; TEMP 36.2–36.7; O2SAT 92–99
[2025-01-24] MEDS: IPRATROPIUM BR 0.02% INH SOLN 0.5 MG/2.5 ML VIAL INHALATION ×3 (03:03→20:51)
[2025-01-24] MEDS: BENZONATATE 100 MG CAPSULE PO ×2 (05:58→20:52)
[2025-01-24 07:17] LABS: Hematocrit 35.7 % (37.0-47.0); Hemoglobin 11.6 g/dL (12.0-15.0); Mean Corpuscular HGB Conc 32.5 g/dl (32-36); Mean Corpuscular Hemoglobin 30.7 pg (26-34); Mean Corpuscular Volume 94.4 fl (80-100); Platelet Count Result 318 k/mm3 (150-375); Red Blood Count 3.78 M/mm3 (4.2-5.4); White Blood Count 16.1 K/mm3 (4.5-10.0)
[2025-01-24 07:28] LABS: Anion Gap 7 mmol/L (4-12); Blood Urea Nitrogen 33 mg/dL (7-17); Calcium 8.5 mg/dL (8.4-10.2); Carbon Dioxide 26 mmol/L (22-30); Chloride 102 mmol/L (98-107); Estimated CRCL calculation 29 ml/min; Estimated Glomerular Filt Rate 34; Glucose 87 mg/dL (65-110); Magnesium 1.9 mg/dL (1.6-2.3); Potassium 3.5 mmol/L (3.4-5.0); Sodium 135 mmol/L (137-145)
[2025-01-24] MEDS: BUDESONIDE RESPULE NEB 0.5 MG/2 ML AMP INHALATION ×2 (07:39→20:51)
--- NOTE | 2025-01-24 08:17 | PM.IMPN ---
Progress Note: A&P Assessment and Plan (1) ST elevation (STEMI) myocardial infarction: Code(s): I21.3 - ST elevation (STEMI) myocardial infarction of unspecified site Status: Acute (2) Hyperlipidemia LDL goal <70: Code(s): E78.5 - Hyperlipidemia, unspecified Status: Acute (3) Diabetes: Qualifiers: Diabetes mellitus type: type 2 Diabetes mellitus nursing home insulin use: with terminal operator use Diabetes mellitus complication status: without complication Qualified Code(s): E11.9 - Type 2 diabetes mellitus without complications; Z79.4 - terminal press operator (current) use of insulin Code(s): E11.9 - Type 2 diabetes mellitus without complications Status: Acute (4) Anxiety and depression: Code(s): F41.9 - Anxiety disorder, unspecified; F32.A - Depression, unspecified Status: Acute (5) Cough: Code(s): R05.9 - Cough, unspecified Status: Acute Plan 79-year-old female presents the hospital on 01/14/2025 with complaints of chest pain. She was found to have a ST-elevation myocardial infarction and was taken to the analytical lab technician that day. She had a PCI to the LAD with 1 stent placed. Patient is allergic to aspirin she was started on ticagrelor, carvedilol, lisinopril, rosuvastatin. On 01/15/2025 around noon the patient had increased ST elevation in leads V1 and V2, Dr. Rios is concerned about a possible aneurysm will continue with current medical management at this time however if the patient complains of chest pain, has decreased oxygen saturations or decreasing her blood pressure Dr. Rios take her back to the analytical lab technician. Chest x-ray with the findings of CHF. Echo with severe cardiomyopathy with EF 20-25%. Patient started on diuresis with IV Lasix. Repeat Chest x-ray showed findings of respiratory bronchiolitis and was treated with doxycycline. Sputum culture with Haemophilus influenzae. With penicillin allergy will continue doxycycline as ordered. Patient will need LifeVest. Patient on anticoagulation for paroxysmal atrial fibrillation which will be continued. Patient intolerant to aspirin given facial swelling with potential compromise respiratory system and hence on Eliquis and Plavix. Continue statin. For ischemic cardiomyopathy she is on Toprol and losartan blood pressure limiting up titration of these medications. PT OT recommend home health which has been arranged with the help of care coordination. Do not resuscitate and refuses LifeVest Respiratory bronchiolitis bronchiolitis, gave Pulmicort nebs, doxycycline, started on prednisone 01/22/2025 DVT profile: Apixaban Subjective Date/time seen: 01/24/25 08:17 Interval history: 79-year-old female presents the hospital on 01/14/2025 with complaints of chest pain. She was found to have a ST-elevation myocardial infarction and was taken to the analytical lab technician that day. She had a PCI to the LAD with 1 stent placed. 01/24/2025 Review of Systems Review of Systems: 12 systems were reviewed and are negative except for as per HPI. All systems reviewed & are unremarkable except as noted in HPI and below Exam Narrative: Patient is comfortable, NAD HEENT: eyes are clear and none icteric LUNGS: Coarse breath sounds no wheezes HEART: RR S1S2 ABD: BS+, Soft and nontender Lower extremities: no edema SKIN: nonjaundiced Neuro: grossly intact. Objective Data Vital Signs Vital Signs: Vital Signs - 24 hr 01/23/25 08:22 01/23/25 09:06 01/23/25 10:00 Temperature Pulse Rate 120 H 108 H 105 H Respiratory Rate 20 Blood Pressure Pulse Oximetry Oxygen Delivery Fraction of Inspired Oxygen 01/23/25 12:00 01/23/25 12:00 01/23/25 12:00 Temperature 98.0 F Pulse Rate 107 H 107 H Respiratory Rate 20 Blood Pressure 101/60 Pulse Oximetry 99 Oxygen Delivery Room Air Fraction of Inspired Oxygen 01/23/25 14:40 01/23/25 14:45 01/23/25 16:00 Temperature Pulse Rate 91 89 Respiratory Rate 16 18 Blood Pressure Pulse Oximetry Oxygen Delivery Room Air Fraction of Inspired Oxygen 01/23/25 16:00 01/23/25 20:00 01/23/25 20:00 Temperature 97.7 F Pulse Rate 111 H 98 100 Respiratory Rate 20 18 Blood Pressure 119/69 Pulse Oximetry 97 93 Oxygen Delivery Room Air Fraction of Inspired Oxygen 28 01/23/25 20:00 01/23/25 21:50 01/23/25 21:51 Temperature Pulse Rate 103 H 100 Respiratory Rate 18 Blood Pressure Pulse Oximetry 93 Oxygen Delivery Room Air Fraction of Inspired Oxygen 01/23/25 22:07 01/24/25 00:00 01/24/25 00:47 Temperature 97.7 F Pulse Rate 103 H 97 99 Respiratory Rate 18 18 Blood Pressure 91/51 L Pulse Oximetry 97 Oxygen Delivery Fraction of Inspired Oxygen 01/24/25 03:05 01/24/25 04:00 01/24/25 06:00 Temperature 98.0 F Pulse Rate 94 95 95 Respiratory Rate 16 20 Blood Pressure 117/71 Pulse Oximetry 95 Oxygen Delivery Fraction of Inspired Oxygen 01/24/25 07:41 01/24/25 07:41 01/24/25 07:55 Temperature Pulse Rate 97 98 Respiratory Rate 20 20 Blood Pressure Pulse Oximetry 92 Oxygen Delivery Room Air Fraction of Inspired Oxygen Intake/Output Intake/Output: Intake & Output 01/21/25 01/22/25 01/23/25 01/24/25 23:59 23:59 23:59 23:59 Intake Total 1686 1270 1452 100 Output Total 1100 500 Balance 596 692 4977 100 Meds/Results Medications: Active Medications Generic Name Dose Route Start Last Admin Trade Name Freq PRN Reason Stop Dose Admin Acetaminophen 650 mg 01/21/25 16:22 01/21/25 16:49 Acetaminophen 325 Mg Tablet PO 650 mg Q6H PRN Administration Mild Pain (1-3) or Fever Apixaban 5 mg 01/15/25 10:55 01/23/25 21:37 Apixaban 5 Mg Tablet PO 5 mg Q12HR DOYLE Administration Benzonatate 100 mg 01/22/25 22:00 01/24/25 05:58 Benzonatate 100 Mg Capsule PO 100 mg Q8HR DOYLE Administration Budesonide 0.5 mg 01/20/25 09:50 01/24/25 07:39 Budesonide Respule Neb 0.5 Mg/2 Ml Amp INHALATION 0.5 mg Q12HRT DOYLE Administration Clopidogrel Bisulfate 75 mg 01/16/25 09:00 01/23/25 09:07 Clopidogrel Bisulfate 75 Mg Tablet PO 75 mg DAILY DOYLE Administration Dextrose 12.5 gm 01/14/25 08:08 Dextrose 50% 25 Gm/50 Ml Syringe IV PUSH PRN PRN Hypoglycemia Protocol Empagliflozin 10 mg 01/19/25 09:00 01/23/25 09:07 Empagliflozin 10 Mg Tablet PO 10 mg DAILY DOYLE Administration Fluticasone Propionate 1 spray 01/15/25 21:00 01/23/25 23:43 Fluticasone Propionate 0.05% Na Spr 16 Gm Btl (*Bkc) NASAL Not Given Q12HR DOYLE Glucagon 1 mg 01/14/25 08:08 Glucagon For Inj 1 Mg Vial IM PRN PRN Hypoglycemia Protocol Glucose 15 gm 01/14/25 08:08 Glucose Oral Gel 15 Gm Of Glucse In 37.5 Gm Tube PO PRN PRN Hypoglycemia Protocol Guaifenesin 1,200 mg 01/23/25 21:00 01/23/25 21:37 Guaifenesin 12 Hr 600 Mg Tabcr PO 1,200 mg Q12HR DOYLE Administration Guaifenesin/Dextromethorphan 10 ml 01/14/25 09:03 01/22/25 23:25 Guaifenesin/Dextromethorphan 10 Ml Udc PO 10 ml Q4H PRN Administration Cough Dextrose 1,000 mls @ 100 mls/hr 01/14/25 08:08 Dextrose 5% 1,000 Ml IVPB PRN PRN Hypoglycemia Protocol Insulin Aspart 2 - 4 units 01/14/25 21:00 01/23/25 21:36 Insulin Aspart (*Bkc) 100 Units/Ml SUB-Q 2 units HS DOYLE Administration Protocol Insulin Aspart 4 - 8 units 01/14/25 12:00 01/23/25 16:40 Insulin Aspart (*Bkc) 100 Units/Ml SUB-Q 5 units TIDWM DOYLE Administration Protocol Insulin Glargine 38 units 01/15/25 21:00 01/23/25 21:36 Insulin Glargine (*Bkc) 100 Units/Ml SUB-Q 38 units HS DOYLE Administration Ipratropium [place] 0.5 mg 01/21/25 20:00 01/24/25 07:39 Ipratropium Br 0.02% Inh Soln 0.5 Mg/2.5 Ml Vial INHALATION 0.5 mg Q6HRT DOYLE Administration Levalbuterol HCl 0.63 mg 01/21/25 20:00 01/24/25 07:39 Levalbuterol Neb 1.25 Mg/3 Ml INHALATION 0.63 mg Q6HRT DOYLE Administration Losartan Potassium 12.5 mg 01/14/25 09:00 01/14/25 09:22 Losartan Potassium 12.5 Mg Tablet PO 12.5 mg On Hold: 01/15/25 07:59 DAILY DOYLE Administration Metoprolol Succinate 25 mg 01/20/25 09:00 01/21/25 07:57 Metoprolol Succinate Ext Rel 25 Mg Tabcr PO 25 mg On Hold: 01/21/25 12:29 QAM DOYLE Administration Metoprolol Succinate 12.5 mg 01/23/25 09:00 01/23/25 09:06 Metoprolol Succinate Ext Rel 12.5 Mg Tabcr PO 12.5 mg QAM DOYLE Administration Ondansetron HCl 4 mg 01/14/25 09:03 01/16/25 12:27 Ondansetron Inj 4 Mg/2 Ml Vial IV PUSH 4 mg Q6H PRN Administration Nausea And Vomiting Prednisone 40 mg 01/22/25 14:15 01/23/25 09:06 Prednisone 20 Mg Tablet PO 40 mg DAILY@0800 DOYLE Administration Rosuvastatin Calcium 20 mg 01/15/25 21:00 01/23/25 21:36 Rosuvastatin 20 Mg Tablet PO 20 mg QHS DOYLE Administration Sitagliptin Phosphate 50 mg 01/22/25 09:00 01/23/25 09:07 Sitagliptin Phosphate 50 Mg Tablet PO 50 mg QAM DOYLE Administration Sodium Chloride 1 spray 01/16/25 14:19 01/17/25 21:07 Saline 0.65% Frank Soln 44 Ml Btl NASAL 1 spray Q6HR PRN Administration Congestion Venlafaxine HCl 150 mg 01/15/25 09:00 01/23/25 09:06 Venlafaxine Hcl Xr 75 Mg Cap.Er.24h PO 150 mg DAILY DOYLE Administration Radiology Results: ITS Impressions Chest/Abdomen/Pelvis CTA 01/14/25 08:21 IMPRESSION: 1. Normal caliber aorta with no dissection. No acute cardiopulmonary disease or acute intra-abdominal/pelvic process. 2. Diverticulosis. Abdomen X-Ray 01/16/25 13:09 Impression: 1. No acute abnormality. Chest X-Ray 01/20/25 08:14 IMPRESSION: No focal consolidation. Mild perihilar bronchial wall thickening, findings suggestive of respiratory bronchiolitis. Labs Labs: Laboratory Results - last 24 hr 01/23/25 01/23/25 01/23/25 11:56 16:33 20:58 WBC RBC Hgb Hct MCV MCH MCHC RDW Plt Count MPV Sodium Potassium Chloride Carbon Dioxide Anion Gap BUN Creatinine Estim Creat Clear Calc Estimated GFR Glucose POC Capillary Glucose 112 H 287 H 232 H Calcium Magnesium 01/24/25 01/24/25 06:28 07:47 WBC 16.1 H RBC 3.78 L Hgb 11.6 L Hct 35.7 L MCV 94.4 MCH 30.7 MCHC 32.5 RDW 12.9 Plt Count 318 MPV 10.1 Sodium 135 L Potassium 3.5 Chloride 102 Carbon Dioxide 26 Anion Gap 7 BUN 33 H Creatinine 1.47 H Estim Creat Clear Calc 29 Estimated GFR 34 L Glucose 87 POC Capillary Glucose 72 Calcium 8.5 Magnesium 1.9 Quality VTE Prophylaxis VTE prophylaxis: mechanical ordered and pharmacologic ordered
[2025-01-24] MEDS: VENLAFAXINE HCL XR 75 MG CAP.ER.24H 150 MG PO (08:32)
[2025-01-24] MEDS: CLOPIDOGREL BISULFATE 75 MG TABLET PO (08:32)
[2025-01-24] MEDS: EMPAGLIFLOZIN 10 MG TABLET PO (08:32)
[2025-01-24] MEDS: guaiFENesin 12 HR 600 MG TABCR 1200 MG PO ×2 (08:32→20:52)
[2025-01-24] MEDS: APIXABAN 5 MG TABLET PO ×2 (08:32→20:52)
[2025-01-24] MEDS: FLUTICASONE PROPIONATE 0.05% NA SPR 16 GM BTL (*BKC) 1 SPRAY NASAL ×2 (08:34→20:53)
[2025-01-24] MEDS: METOPROLOL SUCCINATE EXT REL 12.5 MG TABCR PO (08:41)
--- NOTE | 2025-01-24 14:07 | PM.PNCARD ---
Progress Note: A&P Assessment and Plan (1) ST elevation (STEMI) myocardial infarction: Code(s): I21.3 - ST elevation (STEMI) myocardial infarction of unspecified site Status: Acute (2) Ischemic cardiomyopathy: Code(s): I25.5 - Ischemic cardiomyopathy Status: Acute Plan He 79-year-old lady with: Acute anterior wall infarction treated with emergency stenting of the mid LAD on admission. Doing well since then. She is on appropriate medical therapy. Up titration of her therapy for reduced ejection fraction has been limited because of soft blood pressure. She has no symptomatic hypotension however. She has essentially achieved maximum benefit from this hospitalization. She reports that the hospitalist wish to keep her in for another couple of days for respiratory therapy/breathing treatments etc.. Pantera Muller MD [facility] Subjective Date/time seen: Date of service: 01/24/25 14:07 Interval history: Chest pain H&P-Narrative: 79-year-old female presents the hospital on 01/14/2025 with complaints of chest pain. She was found to have a ST-elevation myocardial infarction I was taken to the orthodontic lab technician that day. She had a PICC to the LAD with 1 stent placed. Patient is allergic to aspirin she was started on ticagrelor, carvedilol, lisinopril, rosuvastatin. On 01/15/2025 around noon the patient had increased ST elevation in leads V1 and V2, Dr. Rios is concerned about a possible aneurysm will continue with current medical management at this time however if the patient complains of chest pain, has decreased oxygen saturations or decreasing her blood pressure Dr. Rios take her back to the orthodontic lab technician. 79 y/o female presented with CP and patient was found to have anterior STEMI and was taken to cardiac cath had primary PCI to mid LAD, patient stats feeling much better however she does have cough, patient did have chest x-ray and it shows pulmonary edema, patient has severe cardiomyopathy with EF 20-25%, patient being gently diuresed, will monitor and plan, will have PT/OT to evaluate the patient. 01/19/25: Patient is sitting up in chair, she reports feeling as though she cannot take a deep breath in and cough. No chest pain or pressure. No dizziness or palpitations. Overnight IV lasix was ordered however, no IV access and have been unable to obtain. 01/20/25: Patient sitting up in bed. She continues to experience cough with little sputum production. No chest pain or pressure. No new shortness of breath. No dizziness or palpitations. 01/21/25: Patient feeling improved this am. She reports cough improved and now on room air. Denies any chest pain or pressure. No shortness of breath at this time. No dizziness 01/22/25: Patient is sitting up in bed. She got up this am for bath and is feeling better. No c/o any chest pain or SOB at this time. No dizziness or palpitations. 01/24/2025: Patient was sleeping flat in bed when I came to see her upon awakening she says she is feeling relatively well she still has a cough that is persisting since her admission but no chest pain no shortness of breath etc.. Exam Narrative: General: Alert oriented x3, no acute distress Neck: Supple, no JVD Chest: decreased in bases Cardiac: S1, S2 +, regular rate, regular rhythm, no murmurs or rubs Extremities: No pedal edema, no skin rash Neurologic: Alert and oriented x3, no focal neurological deficits Const: General: comfortable and no acute distress Other: Able to lie flat HENMT: Face/Nose/Sinus: Normal nares present and no epistaxis Mouth: Yes moist mucous membranes Eyes: General: appearance normal, both eyes and all related structures Sclera: sclerae normal Pupils: Equal, round and reactive pupils present EOM: EOMs intact bilaterally Neck: Neck: supple and no JVD Carotids: no bruits Resp: Effort & Inspection: normal respiratory effort Auscultation: clear to auscultation bilaterally and lung sounds not diminished Other: No chest wall tenderness Cardio: Rate: regular rate and tachycardic Rhythm: regular rhythm Heart sounds: no gallops, no murmurs and no rubs GI: Inspection: non-distended Auscultation: normal bowel sounds Skin: General skin exam: normal color, rashes and/or lesions noted and no erythema Other: Warm Neuro: Cranial nerves: Yes Equal, round and reactive pupils present and Yes Normal hearing present Speech: normal speech and No Abnormal speech present Sensory Exam: normal sensation Other: No obvious focal deficit or facial asymmetry Extrem: General: no edema and no pedal edema Other: Normal capillary refills Intact distal pulses. Psych: Mental Status: mental status grossly normal Affect: normal affect Objective Data Vital Signs Vital Signs: Vital Signs - 24 hr 01/23/25 14:40 01/23/25 14:45 01/23/25 16:00 Temperature Pulse Rate 91 89 Respiratory Rate 16 18 Blood Pressure Pulse Oximetry Oxygen Delivery Room Air Fraction of Inspired Oxygen 01/23/25 16:00 01/23/25 20:00 01/23/25 20:00 Temperature 36.5 C Pulse Rate 111 H 98 100 Respiratory Rate 20 18 Blood Pressure 119/69 Pulse Oximetry 97 93 Oxygen Delivery Room Air Fraction of Inspired Oxygen 28 01/23/25 20:00 01/23/25 21:50 01/23/25 21:51 Temperature Pulse Rate 103 H 100 Respiratory Rate 18 Blood Pressure Pulse Oximetry 93 Oxygen Delivery Room Air Fraction of Inspired Oxygen 01/23/25 22:07 01/24/25 00:00 01/24/25 00:47 Temperature 36.5 C Pulse Rate 103 H 97 99 Respiratory Rate 18 18 Blood Pressure 91/51 L Pulse Oximetry 97 Oxygen Delivery Fraction of Inspired Oxygen 01/24/25 03:05 01/24/25 04:00 01/24/25 06:00 Temperature 36.7 C Pulse Rate 94 95 95 Respiratory Rate 16 20 Blood Pressure 117/71 Pulse Oximetry 95 Oxygen Delivery Fraction of Inspired Oxygen 01/24/25 07:41 01/24/25 07:41 01/24/25 07:55 Temperature Pulse Rate 97 98 Respiratory Rate 20 20 Blood Pressure Pulse Oximetry 92 Oxygen Delivery Room Air Fraction of Inspired Oxygen 01/24/25 08:30 01/24/25 08:30 01/24/25 08:30 Temperature Pulse Rate 105 H Respiratory Rate Blood Pressure 92/58 L Pulse Oximetry Oxygen Delivery Room Air Fraction of Inspired Oxygen 01/24/25 08:41 Temperature Pulse Rate 99 Respiratory Rate Blood Pressure Pulse Oximetry Oxygen Delivery Fraction of Inspired Oxygen Intake/Output Intake/Output: Intake & Output 01/21/25 01/22/25 01/23/25 01/24/25 23:59 23:59 23:59 23:59 Intake Total 1686 1270 1452 460 Output Total 1100 500 Balance 264 739 2856 460 Meds/Results Medications: Active Medications Generic Name Dose Route Start Last Admin Trade Name Freq PRN Reason Stop Dose Admin Acetaminophen 650 mg 01/21/25 16:22 01/21/25 16:49 Acetaminophen 325 Mg Tablet PO 650 mg Q6H PRN Administration Mild Pain (1-3) or Fever Apixaban 5 mg 01/15/25 10:55 01/24/25 08:32 Apixaban 5 Mg Tablet PO 5 mg Q12HR DOYLE Administration Benzonatate 100 mg 01/22/25 22:00 01/24/25 05:58 Benzonatate 100 Mg Capsule PO 100 mg Q8HR DOYLE Administration Budesonide 0.5 mg 01/20/25 09:50 01/24/25 07:39 Budesonide Respule Neb 0.5 Mg/2 Ml Amp INHALATION 0.5 mg Q12HRT DOYLE Administration Clopidogrel Bisulfate 75 mg 01/16/25 09:00 01/24/25 08:32 Clopidogrel Bisulfate 75 Mg Tablet PO 75 mg DAILY DOYLE Administration Dextrose 12.5 gm 01/14/25 08:08 Dextrose 50% 25 Gm/50 Ml Syringe IV PUSH PRN PRN Hypoglycemia Protocol Empagliflozin 10 mg 01/19/25 09:00 01/24/25 08:32 Empagliflozin 10 Mg Tablet PO 10 mg DAILY DOYLE Administration Fluticasone Propionate 1 spray 01/15/25 21:00 01/24/25 08:34 Fluticasone Propionate 0.05% Na Spr 16 Gm Btl (*Bkc) NASAL 1 spray Q12HR DOYLE Administration Glucagon 1 mg 01/14/25 08:08 Glucagon For Inj 1 Mg Vial IM PRN PRN Hypoglycemia Protocol Glucose 15 gm 01/14/25 08:08 Glucose Oral Gel 15 Gm Of Glucse In 37.5 Gm Tube PO PRN PRN Hypoglycemia Protocol Guaifenesin 1,200 mg 01/23/25 21:00 01/24/25 08:32 Guaifenesin 12 Hr 600 Mg Tabcr PO 1,200 mg Q12HR DOYLE Administration Guaifenesin/Dextromethorphan 10 ml 01/14/25 09:03 01/22/25 23:25 Guaifenesin/Dextromethorphan 10 Ml Udc PO 10 ml Q4H PRN Administration Cough Dextrose 1,000 mls @ 100 mls/hr 01/14/25 08:08 Dextrose 5% 1,000 Ml IVPB PRN PRN Hypoglycemia Protocol Insulin Aspart 2 - 4 units 01/14/25 21:00 01/23/25 21:36 Insulin Aspart (*Bkc) 100 Units/Ml SUB-Q 2 units HS DOYLE Administration Protocol Insulin Aspart 4 - 8 units 01/14/25 12:00 01/24/25 12:00 Insulin Aspart (*Bkc) 100 Units/Ml SUB-Q Not Given TIDWM [facility] Protocol Insulin Glargine 38 units 01/15/25 21:00 01/23/25 21:36 Insulin Glargine (*Bkc) 100 Units/Ml SUB-Q 38 units HS DOYLE Administration Ipratropium [place] 0.5 mg 01/21/25 20:00 01/24/25 13:29 Ipratropium Br 0.02% Inh Soln 0.5 Mg/2.5 Ml Vial INHALATION Not Given Q6HRT DOYLE Levalbuterol HCl 0.63 mg 01/21/25 20:00 01/24/25 13:29 Levalbuterol Neb 1.25 Mg/3 Ml INHALATION Not Given Q6HRT DOYLE Losartan Potassium 12.5 mg 01/14/25 09:00 01/14/25 09:22 Losartan Potassium 12.5 Mg Tablet PO 12.5 mg On Hold: 01/15/25 07:59 DAILY DOYLE Administration Metoprolol Succinate 25 mg 01/20/25 09:00 01/21/25 07:57 Metoprolol Succinate Ext Rel 25 Mg Tabcr PO 25 mg On Hold: 01/21/25 12:29 QAM DOYLE Administration Metoprolol Succinate 12.5 mg 01/23/25 09:00 01/24/25 08:41 Metoprolol Succinate Ext Rel 12.5 Mg Tabcr PO 12.5 mg QAM ODYLE Administration Ondansetron HCl 4 mg 01/14/25 09:03 01/16/25 12:27 Ondansetron Inj 4 Mg/2 Ml Vial IV PUSH 4 mg Q6H PRN Administration Nausea And Vomiting Prednisone 40 mg 01/22/25 14:15 01/24/25 08:32 Prednisone 20 Mg Tablet PO 40 mg DAILY@0800 DOYLE Administration Rosuvastatin Calcium 20 mg 01/15/25 21:00 01/23/25 21:36 Rosuvastatin 20 Mg Tablet PO 20 mg QHS DOYLE Administration Sitagliptin Phosphate 50 mg 01/22/25 09:00 01/24/25 08:32 Sitagliptin Phosphate 50 Mg Tablet PO 50 mg QAM [facility] Administration Sodium Chloride 1 spray 01/16/25 14:19 01/17/25 21:07 Saline 0.65% Frank Soln 44 Ml Btl NASAL 1 spray Q6HR PRN Administration Congestion Venlafaxine HCl 150 mg 01/15/25 09:00 01/24/25 08:32 Venlafaxine Hcl Xr 75 Mg Cap.Er.24h PO 150 mg DAILY DOYLE Administration Radiology Results: ITS Impressions Chest/Abdomen/Pelvis CTA 01/14/25 08:21 IMPRESSION: 1. Normal caliber aorta with no dissection. No acute cardiopulmonary disease or acute intra-abdominal/pelvic process. 2. Diverticulosis. Abdomen X-Ray 01/16/25 13:09 Impression: 1. No acute abnormality. Chest X-Ray 01/20/25 08:14 IMPRESSION: No focal consolidation. Mild perihilar bronchial wall thickening, findings suggestive of respiratory bronchiolitis. Labs Labs: Laboratory Results - last 24 hr 01/23/25 01/23/25 01/24/25 16:33 20:58 06:28 WBC 16.1 H RBC 3.78 L Hgb 11.6 L Hct 35.7 L MCV 94.4 MCH 30.7 MCHC 32.5 RDW 12.9 Plt Count 318 MPV 10.1 Sodium 135 L Potassium 3.5 Chloride 102 Carbon Dioxide 26 Anion Gap 7 BUN 33 H Creatinine 1.47 H Estim Creat Clear Calc 29 Estimated GFR 34 L Glucose 87 POC Capillary Glucose 287 H 232 H Calcium 8.5 Magnesium 1.9 01/24/25 01/24/25 07:47 11:44 WBC RBC Hgb Hct MCV MCH MCHC RDW Plt Count MPV Sodium Potassium Chloride Carbon Dioxide Anion Gap BUN Creatinine Estim Creat Clear Calc Estimated GFR Glucose POC Capillary Glucose 72 117 H Calcium Magnesium
--- NOTE | 2025-01-24 14:18 | PM.IMPN ---
Progress Note: A&P Assessment and Plan (1) ST elevation (STEMI) myocardial infarction: Code(s): I21.3 - ST elevation (STEMI) myocardial infarction of unspecified site Status: Acute (2) Hyperlipidemia LDL goal <70: Code(s): E78.5 - Hyperlipidemia, unspecified Status: Acute (3) Diabetes: Qualifiers: Diabetes mellitus type: type 2 Diabetes mellitus alf insulin use: with termite exterminator use Diabetes mellitus complication status: without complication Qualified Code(s): E11.9 - Type 2 diabetes mellitus without complications; Z79.4 - termite exterminator (current) use of insulin Code(s): E11.9 - Type 2 diabetes mellitus without complications Status: Acute (4) Anxiety and depression: Code(s): F41.9 - Anxiety disorder, unspecified; F32.A - Depression, unspecified Status: Acute (5) Cough: Code(s): R05.9 - Cough, unspecified Status: Acute Plan 79-year-old female presents the hospital on 01/14/2025 with complaints of chest pain. She was found to have a ST-elevation myocardial infarction and was taken to the laboratory chemical assistant that day. She had a PCI to the LAD with 1 stent placed. Patient is allergic to aspirin she was started on ticagrelor, carvedilol, lisinopril, rosuvastatin. On 01/15/2025 around noon the patient had increased ST elevation in leads V1 and V2, Dr. Rios is concerned about a possible aneurysm will continue with current medical management at this time however if the patient complains of chest pain, has decreased oxygen saturations or decreasing her blood pressure Dr. Rios take her back to the laboratory chemical assistant. Chest x-ray with the findings of CHF. Echo with severe cardiomyopathy with EF 20-25%. Patient started on diuresis with IV Lasix. Repeat Chest x-ray showed findings of respiratory bronchiolitis and was treated with doxycycline. Sputum culture with Haemophilus influenzae. With penicillin allergy will continue doxycycline as ordered. Patient will need LifeVest. Patient on anticoagulation for paroxysmal atrial fibrillation which will be continued. Patient intolerant to aspirin given facial swelling with potential compromise respiratory system and hence on Eliquis and Plavix. Continue statin. For ischemic cardiomyopathy she is on Toprol and losartan blood pressure limiting up titration of these medications. PT OT recommend home health which has been arranged with the help of care coordination. Do not resuscitate and refuses LifeVest Respiratory bronchiolitis bronchiolitis, gave Pulmicort nebs, doxycycline, started on prednisone 01/22/2025 DVT profile: Apixaban Subjective Date/time seen: 01/24/25 14:18 Interval history: Cough persist. No chest pain. No other complaints. Review of Systems Review of Systems: 12 systems were reviewed and are negative except for as per HPI. Exam Narrative: Patient is comfortable, NAD HEENT: eyes are clear and none icteric LUNGS: Coarse breath sounds no wheezes HEART: RR S1S2 ABD: BS+, Soft and nontender Lower extremities: no edema SKIN: nonjaundiced Neuro: grossly intact. Objective Data Vital Signs Vital Signs: Vital Signs - 24 hr 01/23/25 14:40 01/23/25 14:45 01/23/25 16:00 Temperature Pulse Rate 91 89 Respiratory Rate 16 18 Blood Pressure Pulse Oximetry Oxygen Delivery Room Air Fraction of Inspired Oxygen 01/23/25 16:00 01/23/25 20:00 01/23/25 20:00 Temperature 97.7 F Pulse Rate 111 H 98 100 Respiratory Rate 20 18 Blood Pressure 119/69 Pulse Oximetry 97 93 Oxygen Delivery Room Air Fraction of Inspired Oxygen 28 01/23/25 20:00 01/23/25 21:50 01/23/25 21:51 Temperature Pulse Rate 103 H 100 Respiratory Rate 18 Blood Pressure Pulse Oximetry 93 Oxygen Delivery Room Air Fraction of Inspired Oxygen 01/23/25 22:07 01/24/25 00:00 01/24/25 00:47 Temperature 97.7 F Pulse Rate 103 H 97 99 Respiratory Rate 18 18 Blood Pressure 91/51 L Pulse Oximetry 97 Oxygen Delivery Fraction of Inspired Oxygen 01/24/25 03:05 01/24/25 04:00 01/24/25 06:00 Temperature 98.0 F Pulse Rate 94 95 95 Respiratory Rate 16 20 Blood Pressure 117/71 Pulse Oximetry 95 Oxygen Delivery Fraction of Inspired Oxygen 01/24/25 07:41 01/24/25 07:41 01/24/25 07:55 Temperature Pulse Rate 97 98 Respiratory Rate 20 20 Blood Pressure Pulse Oximetry 92 Oxygen Delivery Room Air Fraction of Inspired Oxygen 01/24/25 08:30 01/24/25 08:30 01/24/25 08:30 Temperature Pulse Rate 105 H Respiratory Rate Blood Pressure 92/58 L Pulse Oximetry Oxygen Delivery Room Air Fraction of Inspired Oxygen 01/24/25 08:41 Temperature Pulse Rate 99 Respiratory Rate Blood Pressure Pulse Oximetry Oxygen Delivery Fraction of Inspired Oxygen Intake/Output Intake/Output: Intake & Output 01/21/25 01/22/25 01/23/25 01/24/25 23:59 23:59 23:59 23:59 Intake Total 1686 1270 1452 460 Output Total 1100 500 Balance 313 503 9488 460 Meds/Results Medications: Active Medications Generic Name Dose Route Start Last Admin Trade Name Freq PRN Reason Stop Dose Admin Acetaminophen 650 mg 01/21/25 16:22 01/21/25 16:49 Acetaminophen 325 Mg Tablet PO 650 mg Q6H PRN Administration Mild Pain (1-3) or Fever Apixaban 5 mg 01/15/25 10:55 01/24/25 08:32 Apixaban 5 Mg Tablet PO 5 mg Q12HR DOYLE Administration Benzonatate 100 mg 01/22/25 22:00 01/24/25 05:58 Benzonatate 100 Mg Capsule PO 100 mg Q8HR DOYLE Administration Budesonide 0.5 mg 01/20/25 09:50 01/24/25 07:39 Budesonide Respule Neb 0.5 Mg/2 Ml Amp INHALATION 0.5 mg Q12HRT DOYLE Administration Clopidogrel Bisulfate 75 mg 01/16/25 09:00 01/24/25 08:32 Clopidogrel Bisulfate 75 Mg Tablet PO 75 mg DAILY DOYLE Administration Dextrose 12.5 gm 01/14/25 08:08 Dextrose 50% 25 Gm/50 Ml Syringe IV PUSH PRN PRN Hypoglycemia Protocol Empagliflozin 10 mg 01/19/25 09:00 01/24/25 08:32 Empagliflozin 10 Mg Tablet PO 10 mg DAILY DOYLE Administration Fluticasone Propionate 1 spray 01/15/25 21:00 01/24/25 08:34 Fluticasone Propionate 0.05% Na Spr 16 Gm Btl (*Bkc) NASAL 1 spray Q12HR DOYLE Administration Glucagon 1 mg 01/14/25 08:08 Glucagon For Inj 1 Mg Vial IM PRN PRN Hypoglycemia Protocol Glucose 15 gm 01/14/25 08:08 Glucose Oral Gel 15 Gm Of Glucse In 37.5 Gm Tube PO PRN PRN Hypoglycemia Protocol Guaifenesin 1,200 mg 01/23/25 21:00 01/24/25 08:32 Guaifenesin 12 Hr 600 Mg Tabcr PO 1,200 mg Q12HR DOYLE Administration Guaifenesin/Dextromethorphan 10 ml 01/14/25 09:03 01/22/25 23:25 Guaifenesin/Dextromethorphan 10 Ml Udc PO 10 ml Q4H PRN Administration Cough Dextrose 1,000 mls @ 100 mls/hr 01/14/25 08:08 Dextrose 5% 1,000 Ml IVPB PRN PRN Hypoglycemia Protocol Insulin Aspart 2 - 4 units 01/14/25 21:00 01/23/25 21:36 Insulin Aspart (*Bkc) 100 Units/Ml SUB-Q 2 units HS DOYLE Administration Protocol Insulin Aspart 4 - 8 units 01/14/25 12:00 01/24/25 12:00 Insulin Aspart (*Bkc) 100 Units/Ml SUB-Q Not Given TIDWM DOYLE Protocol Insulin Glargine 38 units 01/15/25 21:00 01/23/25 21:36 Insulin Glargine (*Bkc) 100 Units/Ml SUB-Q 38 units HS DOYLE Administration Ipratropium [place] 0.5 mg 01/21/25 20:00 01/24/25 13:29 Ipratropium Br 0.02% Inh Soln 0.5 Mg/2.5 Ml Vial INHALATION Not Given Q6HRT DOYLE Levalbuterol HCl 0.63 mg 01/21/25 20:00 01/24/25 13:29 Levalbuterol Neb 1.25 Mg/3 Ml INHALATION Not Given Q6HRT DOYLE Losartan Potassium 12.5 mg 01/14/25 09:00 01/14/25 09:22 Losartan Potassium 12.5 Mg Tablet PO 12.5 mg On Hold: 01/15/25 07:59 DAILY DOYLE Administration Metoprolol Succinate 25 mg 01/20/25 09:00 01/21/25 07:57 Metoprolol Succinate Ext Rel 25 Mg Tabcr PO 25 mg On Hold: 01/21/25 12:29 QAM DOYLE Administration Metoprolol Succinate 12.5 mg 01/23/25 09:00 01/24/25 08:41 Metoprolol Succinate Ext Rel 12.5 Mg Tabcr PO 12.5 mg QAM DOYLE Administration Ondansetron HCl 4 mg 01/14/25 09:03 01/16/25 12:27 Ondansetron Inj 4 Mg/2 Ml Vial IV PUSH 4 mg Q6H PRN Administration Nausea And Vomiting Prednisone 40 mg 01/22/25 14:15 01/24/25 08:32 Prednisone 20 Mg Tablet PO 40 mg DAILY@0800 DOYLE Administration Rosuvastatin Calcium 20 mg 01/15/25 21:00 01/23/25 21:36 Rosuvastatin 20 Mg Tablet PO 20 mg QHS DOYLE Administration Sitagliptin Phosphate 50 mg 01/22/25 09:00 01/24/25 08:32 Sitagliptin Phosphate 50 Mg Tablet PO 50 mg QAM DOYLE Administration Sodium Chloride 1 spray 01/16/25 14:19 01/17/25 21:07 Saline 0.65% Frank Soln 44 Ml Btl NASAL 1 spray Q6HR PRN Administration Congestion Venlafaxine HCl 150 mg 01/15/25 09:00 01/24/25 08:32 Venlafaxine Hcl Xr 75 Mg Cap.Er.24h PO 150 mg DAILY DOYLE Administration Radiology Results: ITS Impressions Chest/Abdomen/Pelvis CTA 01/14/25 08:21 IMPRESSION: 1. Normal caliber aorta with no dissection. No acute cardiopulmonary disease or acute intra-abdominal/pelvic process. 2. Diverticulosis. Abdomen X-Ray 01/16/25 13:09 Impression: 1. No acute abnormality. Chest X-Ray 01/20/25 08:14 IMPRESSION: No focal consolidation. Mild perihilar bronchial wall thickening, findings suggestive of respiratory bronchiolitis. Labs Labs: Laboratory Results - last 24 hr 01/23/25 01/23/25 01/24/25 16:33 20:58 06:28 WBC 16.1 H RBC 3.78 L Hgb 11.6 L Hct 35.7 L MCV 94.4 MCH 30.7 MCHC 32.5 RDW 12.9 Plt Count 318 MPV 10.1 Sodium 135 L Potassium 3.5 Chloride 102 Carbon Dioxide 26 Anion Gap 7 BUN 33 H Creatinine 1.47 H Estim Creat Clear Calc 29 Estimated GFR 34 L Glucose 87 POC Capillary Glucose 287 H 232 H Calcium 8.5 Magnesium 1.9 01/24/25 01/24/25 07:47 11:44 WBC RBC Hgb Hct MCV MCH MCHC RDW Plt Count MPV Sodium Potassium Chloride Carbon Dioxide Anion Gap BUN Creatinine Estim Creat Clear Calc Estimated GFR Glucose POC Capillary Glucose 72 117 H Calcium Magnesium
[2025-01-24] MEDS: INSULIN ASPART (*BKC) 100 UNITS/ML SUB-Q ×2 (17:47→21:08)
[2025-01-24] MEDS: ROSUVASTATIN 20 MG TABLET PO (20:52)
[2025-01-24] MEDS: INSULIN GLARGINE (*BKC) 100 UNITS/ML 38 UNITS SUB-Q (21:07)
[2025-01-25] VITALS (17 sets, daily range): BP systolic 98–111; BP diastolic 54–64; PULSE 75–99; RESP 16–20; TEMP 36.1–36.7; O2SAT 92–98
[2025-01-25] MEDS: IPRATROPIUM BR 0.02% INH SOLN 0.5 MG/2.5 ML VIAL INHALATION ×4 (02:10→20:11)
[2025-01-25] MEDS: BENZONATATE 100 MG CAPSULE PO ×3 (05:06→21:13)
[2025-01-25 06:46] LABS: Hematocrit 38.5 % (37.0-47.0); Hemoglobin 12.0 g/dL (12.0-15.0); Mean Corpuscular HGB Conc 31.2 g/dl (32-36); Mean Corpuscular Hemoglobin 30.4 pg (26-34); Mean Corpuscular Volume 97.5 fl (80-100); Platelet Count Result 317 k/mm3 (150-375); Red Blood Count 3.95 M/mm3 (4.2-5.4); White Blood Count 14.8 K/mm3 (4.5-10.0)
[2025-01-25 07:39] LABS: Anion Gap 8 mmol/L (4-12); Blood Urea Nitrogen 33 mg/dL (7-17); Calcium 8.6 mg/dL (8.4-10.2); Carbon Dioxide 25 mmol/L (22-30); Chloride 103 mmol/L (98-107); Estimated CRCL calculation 35 ml/min; Estimated Glomerular Filt Rate 44; Glucose 103 mg/dL (65-110); Magnesium 2.0 mg/dL (1.6-2.3); Potassium 4.2 mmol/L (3.4-5.0); Sodium 136 mmol/L (137-145)
[2025-01-25] MEDS: BUDESONIDE RESPULE NEB 0.5 MG/2 ML AMP INHALATION ×2 (07:44→20:10)
[2025-01-25] MEDS: guaiFENesin 12 HR 600 MG TABCR 1200 MG PO ×2 (08:27→21:13)
[2025-01-25] MEDS: APIXABAN 5 MG TABLET PO ×2 (08:27→21:13)
[2025-01-25] MEDS: VENLAFAXINE HCL XR 75 MG CAP.ER.24H 150 MG PO (08:27)
[2025-01-25] MEDS: EMPAGLIFLOZIN 10 MG TABLET PO (08:28)
[2025-01-25] MEDS: METOPROLOL SUCCINATE EXT REL 12.5 MG TABCR PO (08:28)
[2025-01-25] MEDS: CLOPIDOGREL BISULFATE 75 MG TABLET PO (08:28)
[2025-01-25] MEDS: FLUTICASONE PROPIONATE 0.05% NA SPR 16 GM BTL (*BKC) 1 SPRAY NASAL ×2 (10:10→21:24)
--- NOTE | 2025-01-25 11:43 | PM.IMPN ---
Progress Note: A&P Assessment and Plan (1) ST elevation (STEMI) myocardial infarction: Code(s): I21.3 - ST elevation (STEMI) myocardial infarction of unspecified site Status: Acute (2) Hyperlipidemia LDL goal <70: Code(s): E78.5 - Hyperlipidemia, unspecified Status: Acute (3) Diabetes: Qualifiers: Diabetes mellitus type: type 2 Diabetes mellitus long-term insulin use: with shared services and outsourcing manager use Diabetes mellitus complication status: without complication Qualified Code(s): E11.9 - Type 2 diabetes mellitus without complications; Z79.4 - government services professional (current) use of insulin Code(s): E11.9 - Type 2 diabetes mellitus without complications Status: Acute (4) Anxiety and depression: Code(s): F41.9 - Anxiety disorder, unspecified; F32.A - Depression, unspecified Status: Acute (5) Cough: Code(s): R05.9 - Cough, unspecified Status: Acute Plan 79-year-old female presents the hospital on 01/14/2025 with complaints of chest pain. She was found to have a ST-elevation myocardial infarction and was taken to the laboratory sample carrier that day. She had a PCI to the LAD with 1 stent placed. Patient is allergic to aspirin she was started on ticagrelor, carvedilol, lisinopril, rosuvastatin. On 01/15/2025 around noon the patient had increased ST elevation in leads V1 and V2, Dr. Rios is concerned about a possible aneurysm will continue with current medical management at this time however if the patient complains of chest pain, has decreased oxygen saturations or decreasing her blood pressure Dr. Rios take her back to the laboratory sample carrier. Chest x-ray with the findings of CHF. Echo with severe cardiomyopathy with EF 20-25%. Patient started on diuresis with IV Lasix. Repeat Chest x-ray showed findings of respiratory bronchiolitis and was treated with doxycycline. Sputum culture with Haemophilus influenzae. With penicillin allergy will continue doxycycline as ordered. Patient will need LifeVest. Patient on anticoagulation for paroxysmal atrial fibrillation which will be continued. Patient intolerant to aspirin given facial swelling with potential compromise respiratory system and hence on Eliquis and Plavix. Continue statin. For ischemic cardiomyopathy she is on Toprol and losartan blood pressure limiting up titration of these medications. PT OT recommend home health which has been arranged with the help of care coordination. Do not resuscitate and refuses LifeVest however not agreeable and had been fitted Respiratory bronchiolitis bronchiolitis, gave Pulmicort nebs, doxycycline, started on prednisone 01/22/2025. Will recheck chest x-ray today. DVT profile: Apixaban Subjective Date/time seen: 01/25/25 11:43 Interval history: No overnight events. Still has cough. Minimal expectoration. No chest pain. Review of Systems Review of Systems: All systems reviewed & are unremarkable except as noted in HPI and below Exam Narrative: Patient is comfortable, NAD HEENT: eyes are clear and none icteric LUNGS: Coarse breath sounds no wheezes HEART: RR S1S2 ABD: BS+, Soft and nontender Lower extremities: no edema SKIN: nonjaundiced Neuro: grossly intact. Objective Data Vital Signs Vital Signs: Vital Signs - 24 hr 01/24/25 12:00 01/24/25 14:00 01/24/25 16:00 Temperature 97.3 F L Pulse Rate 101 H 95 101 H Respiratory Rate 18 Blood Pressure 102/78 Pulse Oximetry 95 Oxygen Delivery 01/24/25 20:56 01/24/25 20:57 01/24/25 20:59 Temperature 97.1 F L Pulse Rate 96 93 Respiratory Rate 18 18 Blood Pressure 104/65 Pulse Oximetry 94 99 Oxygen Delivery Room Air 01/24/25 21:04 01/24/25 21:04 01/24/25 21:13 Temperature Pulse Rate 95 96 Respiratory Rate 18 Blood Pressure Pulse Oximetry Oxygen Delivery Room Air 01/25/25 00:00 01/25/25 02:10 01/25/25 02:24 Temperature Pulse Rate 94 96 96 Respiratory Rate 18 18 Blood Pressure Pulse Oximetry Oxygen Delivery 01/25/25 04:00 01/25/25 05:43 01/25/25 07:44 Temperature 98.1 F Pulse Rate 75 78 96 Respiratory Rate 18 18 Blood Pressure 111/64 Pulse Oximetry 98 Oxygen Delivery 01/25/25 07:53 01/25/25 08:03 01/25/25 08:25 Temperature Pulse Rate 96 92 Respiratory Rate 18 16 Blood Pressure Pulse Oximetry 93 Oxygen Delivery Room Air Room Air Intake/Output Intake/Output: Intake & Output 01/22/25 01/23/25 01/24/25 01/25/25 23:59 23:59 23:59 23:59 Intake Total 1270 1452 940 790 Output Total 500 Balance 770 1452 940 790 Meds/Results Medications: Active Medications Generic Name Dose Route Start Last Admin Trade Name Freq PRN Reason Stop Dose Admin Acetaminophen 650 mg 01/21/25 16:22 01/21/25 16:49 Acetaminophen 325 Mg Tablet PO 650 mg Q6H PRN Administration Mild Pain (1-3) or Fever Apixaban 5 mg 01/15/25 10:55 01/25/25 08:27 Apixaban 5 Mg Tablet PO 5 mg Q12HR DOYLE Administration Benzonatate 100 mg 01/22/25 22:00 01/25/25 05:06 Benzonatate 100 Mg Capsule PO 100 mg Q8HR DOYLE Administration Budesonide 0.5 mg 01/20/25 09:50 01/25/25 07:44 Budesonide Respule Neb 0.5 Mg/2 Ml Amp INHALATION 0.5 mg Q12HRT DOYLE Administration Clopidogrel Bisulfate 75 mg 01/16/25 09:00 01/25/25 08:28 Clopidogrel Bisulfate 75 Mg Tablet PO 75 mg DAILY DOYLE Administration Dextrose 12.5 gm 01/14/25 08:08 Dextrose 50% 25 Gm/50 Ml Syringe IV PUSH PRN PRN Hypoglycemia Protocol Empagliflozin 10 mg 01/19/25 09:00 01/25/25 08:28 Empagliflozin 10 Mg Tablet PO 10 mg DAILY DOYLE Administration Fluticasone Propionate 1 spray 01/15/25 21:00 01/25/25 10:10 Fluticasone Propionate 0.05% Na Spr 16 Gm Btl (*Bkc) NASAL 1 spray Q12HR DOYLE Administration Glucagon 1 mg 01/14/25 08:08 Glucagon For Inj 1 Mg Vial IM PRN PRN Hypoglycemia Protocol Glucose 15 gm 01/14/25 08:08 Glucose Oral Gel 15 Gm Of Glucse In 37.5 Gm Tube PO PRN PRN Hypoglycemia Protocol Guaifenesin 1,200 mg 01/23/25 21:00 01/25/25 08:27 Guaifenesin 12 Hr 600 Mg Tabcr PO 1,200 mg Q12HR DOYLE Administration Guaifenesin/Dextromethorphan 10 ml 01/14/25 09:03 01/25/25 08:31 Guaifenesin/Dextromethorphan 10 Ml Udc PO 10 ml Q4H PRN Administration Cough Dextrose 1,000 mls @ 100 mls/hr 01/14/25 08:08 Dextrose 5% 1,000 Ml IVPB PRN PRN Hypoglycemia Protocol Insulin Aspart 2 - 4 units 01/14/25 21:00 01/24/25 21:08 Insulin Aspart (*Bkc) 100 Units/Ml SUB-Q 2 units HS DOYLE Administration Protocol Insulin Aspart 4 - 8 units 01/14/25 12:00 01/25/25 08:27 Insulin Aspart (*Bkc) 100 Units/Ml SUB-Q Not Given TIDWM DOYLE Protocol Insulin Glargine 38 units 01/15/25 21:00 01/24/25 21:07 Insulin Glargine (*Bkc) 100 Units/Ml SUB-Q 38 units HS DOYLE Administration Ipratropium [place] 0.5 mg 01/21/25 20:00 01/25/25 07:45 Ipratropium Br 0.02% Inh Soln 0.5 Mg/2.5 Ml Vial INHALATION 0.5 mg Q6HRT DOYLE Administration Levalbuterol HCl 0.63 mg 01/21/25 20:00 01/25/25 07:44 Levalbuterol Neb 1.25 Mg/3 Ml INHALATION 0.63 mg Q6HRT DOYLE Administration Losartan Potassium 12.5 mg 01/14/25 09:00 01/14/25 09:22 Losartan Potassium 12.5 Mg Tablet PO 12.5 mg On Hold: 01/15/25 07:59 DAILY DOYLE Administration Metoprolol Succinate 25 mg 01/20/25 09:00 01/21/25 07:57 Metoprolol Succinate Ext Rel 25 Mg Tabcr PO 25 mg On Hold: 01/21/25 12:29 QAM DOYLE Administration Metoprolol Succinate 12.5 mg 01/23/25 09:00 01/25/25 08:28 Metoprolol Succinate Ext Rel 12.5 Mg Tabcr PO 12.5 mg QAM DOYLE Administration Ondansetron HCl 4 mg 01/14/25 09:03 01/16/25 12:27 Ondansetron Inj 4 Mg/2 Ml Vial IV PUSH 4 mg Q6H PRN Administration Nausea And Vomiting Prednisone 40 mg 01/22/25 14:15 01/25/25 08:27 Prednisone 20 Mg Tablet PO 40 mg DAILY@0800 DOYLE Administration Rosuvastatin Calcium 20 mg 01/15/25 21:00 01/24/25 20:52 Rosuvastatin 20 Mg Tablet PO 20 mg QHS DOYLE Administration Sitagliptin Phosphate 50 mg 01/22/25 09:00 01/25/25 08:28 Sitagliptin Phosphate 50 Mg Tablet PO 50 mg QAM DOYLE Administration Sodium Chloride 1 spray 01/16/25 14:19 01/17/25 21:07 Saline 0.65% Frank Soln 44 Ml Btl NASAL 1 spray Q6HR PRN Administration Congestion Venlafaxine HCl 150 mg 01/15/25 09:00 01/25/25 08:27 Venlafaxine Hcl Xr 75 Mg Cap.Er.24h PO 150 mg DAILY DOYLE Administration Radiology Results: ITS Impressions Chest/Abdomen/Pelvis CTA 01/14/25 08:21 IMPRESSION: 1. Normal caliber aorta with no dissection. No acute cardiopulmonary disease or acute intra-abdominal/pelvic process. 2. Diverticulosis. Abdomen X-Ray 01/16/25 13:09 Impression: 1. No acute abnormality. Chest X-Ray 01/20/25 08:14 IMPRESSION: No focal consolidation. Mild perihilar bronchial wall thickening, findings suggestive of respiratory bronchiolitis. Labs Labs: Laboratory Results - last 24 hr 01/24/25 01/24/25 01/24/25 11:44 16:58 21:01 WBC RBC Hgb Hct MCV MCH MCHC RDW Plt Count MPV Sodium Potassium Chloride Carbon Dioxide Anion Gap BUN Creatinine Estim Creat Clear Calc Estimated GFR Glucose POC Capillary Glucose 117 H 211 H 273 H Calcium Magnesium 01/25/25 01/25/25 01/25/25 05:43 07:30 11:11 WBC 14.8 H RBC 3.95 L Hgb 12.0 Hct 38.5 MCV 97.5 MCH 30.4 MCHC 31.2 L RDW 13.0 Plt Count 317 MPV 10.5 H Sodium 136 L Potassium 4.2 Chloride 103 Carbon Dioxide 25 Anion Gap 8 BUN 33 H Creatinine 1.18 H Estim Creat Clear Calc 35 Estimated GFR 44 L Glucose 103 POC Capillary Glucose 85 140 H Calcium 8.6 Magnesium 2.0
--- NOTE | 2025-01-25 13:56 | PM.PNCARD ---
Progress Note: A&P Assessment and Plan (1) ST elevation (STEMI) myocardial infarction: Code(s): I21.3 - ST elevation (STEMI) myocardial infarction of unspecified site Status: Acute (2) Ischemic cardiomyopathy: Code(s): I25.5 - Ischemic cardiomyopathy Status: Acute Plan 79-year-old female with -Anterior STEMI status post PCI to mid LAD -Aspirin allergy -Acute systolic heart failure with LVEF of 20-25% secondary to above -Paroxysmal atrial fibrillation on chronic anticoagulation with Eliquis -Hypotension-SBP remains low in the 90s to 110s range Plan: She has aspirin allergy. Continue Plavix and apixaban Consider aspirin desensitization as outpatient Guideline directed medical therapy for systolic heart failure as blood pressure allows. Continue metoprolol 12.5 mg p.o. daily and increase to 12.5 mg p.o. b.i.d. if SBP greater than 110 mmHg. Continue losartan 12.5 mg p.o. daily. Continue empagliflozin 10 mg p.o. daily. Continuos rosuvastatin 20 mg p.o. daily Repeat TTE 40 days post revascularization. If LVEF remains less than 35% she will need EP consultation for ICD Subjective Date/time seen: 01/25/25 13:56 Interval history: Reason for encounter: STEMI, acute systolic heart failure Relevant history: 79-year-old female with history of aspirin allergy, paroxysmal atrial fibrillation, hypertension, TIA, diabetes was admitted with STEMI status post primary PCI to mid LAD on 01/14/2025. She had acute heart failure this hospitalization requiring IV diuresis. TTE showed LVEF of 20-25%. Interval history: Patient is sitting up on the bed. She denies any chest pain, shortness of breath, palpitations, dizziness. She has cough with clear sputum. Review of Systems Cardiovascular: Comments: As per HPI Respiratory: Comments: As per HPI Exam Narrative: General: Alert oriented x3, no acute distress Neck: Supple, no JVD Chest: Bilaterally clear to auscultation, no rales or rhonchi Cardiac: S1, S2 +, regular rate, regular rhythm, no murmurs or rubs Extremities: No pedal edema, no skin rash Neurologic: Alert and oriented x3, no focal neurological deficits Objective Data Vital Signs Vital Signs: Vital Signs - 24 hr 01/24/25 14:00 01/24/25 16:00 01/24/25 20:56 Temperature 36.3 C L Pulse Rate 95 101 H 96 Respiratory Rate 18 18 Blood Pressure 102/78 Pulse Oximetry 95 Oxygen Delivery 01/24/25 20:57 01/24/25 20:59 01/24/25 21:04 Temperature 36.2 C L Pulse Rate 93 Respiratory Rate 18 Blood Pressure 104/65 Pulse Oximetry 94 99 Oxygen Delivery Room Air Room Air 01/24/25 21:04 01/24/25 21:13 01/25/25 00:00 Temperature Pulse Rate 95 96 94 Respiratory Rate 18 Blood Pressure Pulse Oximetry Oxygen Delivery 01/25/25 02:10 01/25/25 02:24 01/25/25 04:00 Temperature Pulse Rate 96 96 75 Respiratory Rate 18 18 Blood Pressure Pulse Oximetry Oxygen Delivery 01/25/25 05:43 01/25/25 07:44 01/25/25 07:53 Temperature 36.7 C Pulse Rate 78 96 96 Respiratory Rate 18 18 18 Blood Pressure 111/64 Pulse Oximetry 98 93 Oxygen Delivery Room Air 01/25/25 08:03 01/25/25 08:25 01/25/25 08:25 Temperature Pulse Rate 92 94 Respiratory Rate 16 Blood Pressure Pulse Oximetry Oxygen Delivery Room Air 01/25/25 12:00 Temperature Pulse Rate 92 Respiratory Rate Blood Pressure Pulse Oximetry Oxygen Delivery Intake/Output Intake/Output: Intake & Output 01/22/25 01/23/25 01/24/25 01/25/25 23:59 23:59 23:59 23:59 Intake Total 1270 1452 940 790 Output Total 500 Balance 770 1452 940 790 Meds/Results Medications: Active Medications Generic Name Dose Route Start Last Admin Trade Name Freq PRN Reason Stop Dose Admin Acetaminophen 650 mg 01/21/25 16:22 01/21/25 16:49 Acetaminophen 325 Mg Tablet PO 650 mg Q6H PRN Administration Mild Pain (1-3) or Fever Apixaban 5 mg 01/15/25 10:55 01/25/25 08:27 Apixaban 5 Mg Tablet PO 5 mg Q12HR DOYLE Administration Benzonatate 100 mg 01/22/25 22:00 01/25/25 13:23 Benzonatate 100 Mg Capsule PO 100 mg Q8HR DOYLE Administration Budesonide 0.5 mg 01/20/25 09:50 01/25/25 07:44 Budesonide Respule Neb 0.5 Mg/2 Ml Amp INHALATION 0.5 mg Q12HRT DOYLE Administration Clopidogrel Bisulfate 75 mg 01/16/25 09:00 01/25/25 08:28 Clopidogrel Bisulfate 75 Mg Tablet PO 75 mg DAILY DOYLE Administration Dextrose 12.5 gm 01/14/25 08:08 Dextrose 50% 25 Gm/50 Ml Syringe IV PUSH PRN PRN Hypoglycemia Protocol Empagliflozin 10 mg 01/19/25 09:00 01/25/25 08:28 Empagliflozin 10 Mg Tablet PO 10 mg DAILY DOYLE Administration Fluticasone Propionate 1 spray 01/15/25 21:00 01/25/25 10:10 Fluticasone Propionate 0.05% Na Spr 16 Gm Btl (*Bkc) NASAL 1 spray Q12HR DOYLE Administration Glucagon 1 mg 01/14/25 08:08 Glucagon For Inj 1 Mg Vial IM PRN PRN Hypoglycemia Protocol Glucose 15 gm 01/14/25 08:08 Glucose Oral Gel 15 Gm Of Glucse In 37.5 Gm Tube PO PRN PRN Hypoglycemia Protocol Guaifenesin 1,200 mg 01/23/25 21:00 01/25/25 08:27 Guaifenesin 12 Hr 600 Mg Tabcr PO 1,200 mg Q12HR DOYLE Administration Guaifenesin/Dextromethorphan 10 ml 01/14/25 09:03 01/25/25 08:31 Guaifenesin/Dextromethorphan 10 Ml Udc PO 10 ml Q4H PRN Administration Cough Dextrose 1,000 mls @ 100 mls/hr 01/14/25 08:08 Dextrose 5% 1,000 Ml IVPB PRN PRN Hypoglycemia Protocol Insulin Aspart 2 - 4 units 01/14/25 21:00 01/24/25 21:08 Insulin Aspart (*Bkc) 100 Units/Ml SUB-Q 2 units HS DOYLE Administration Protocol Insulin Aspart 4 - 8 units 01/14/25 12:00 01/25/25 12:16 Insulin Aspart (*Bkc) 100 Units/Ml SUB-Q Not Given TIDWM DOYLE Protocol Insulin Glargine 38 units 01/15/25 21:00 01/24/25 21:07 Insulin Glargine (*Bkc) 100 Units/Ml SUB-Q 38 units HS DOYLE Administration Ipratropium [place] 0.5 mg 01/21/25 20:00 01/25/25 07:45 Ipratropium Br 0.02% Inh Soln 0.5 Mg/2.5 Ml Vial INHALATION 0.5 mg Q6HRT DOYLE Administration Levalbuterol HCl 0.63 mg 01/21/25 20:00 01/25/25 07:44 Levalbuterol Neb 1.25 Mg/3 Ml INHALATION 0.63 mg Q6HRT DOYLE Administration Losartan Potassium 12.5 mg 01/14/25 09:00 01/14/25 09:22 Losartan Potassium 12.5 Mg Tablet PO 12.5 mg On Hold: 01/15/25 07:59 DAILY DOYLE Administration Metoprolol Succinate 25 mg 01/20/25 09:00 01/21/25 07:57 Metoprolol Succinate Ext Rel 25 Mg Tabcr PO 25 mg On Hold: 01/21/25 12:29 QAM DOYLE Administration Metoprolol Succinate 12.5 mg 01/23/25 09:00 01/25/25 08:28 Metoprolol Succinate Ext Rel 12.5 Mg Tabcr PO 12.5 mg QAM DOYLE Administration Ondansetron HCl 4 mg 01/14/25 09:03 01/16/25 12:27 Ondansetron Inj 4 Mg/2 Ml Vial IV PUSH 4 mg Q6H PRN Administration Nausea And Vomiting Prednisone 40 mg 01/22/25 14:15 01/25/25 08:27 Prednisone 20 Mg Tablet PO 40 mg DAILY@0800 DOYLE Administration Rosuvastatin Calcium 20 mg 01/15/25 21:00 01/24/25 20:52 Rosuvastatin 20 Mg Tablet PO 20 mg QHS DOYLE Administration Sitagliptin Phosphate 50 mg 01/22/25 09:00 01/25/25 08:28 Sitagliptin Phosphate 50 Mg Tablet PO 50 mg QAM DOYLE Administration Sodium Chloride 1 spray 01/16/25 14:19 01/17/25 21:07 Saline 0.65% Frank Soln 44 Ml Btl NASAL 1 spray Q6HR PRN Administration Congestion Venlafaxine HCl 150 mg 01/15/25 09:00 01/25/25 08:27 Venlafaxine Hcl Xr 75 Mg Cap.Er.24h PO 150 mg DAILY DOYLE Administration Radiology Results: ITS Impressions Chest/Abdomen/Pelvis CTA 01/14/25 08:21 IMPRESSION: 1. Normal caliber aorta with no dissection. No acute cardiopulmonary disease or acute intra-abdominal/pelvic process. 2. Diverticulosis. Abdomen X-Ray 01/16/25 13:09 Impression: 1. No acute abnormality. Chest X-Ray 01/25/25 12:42 IMPRESSION: 1. Interstitial opacities in both lungs. Differential includes interstitial edema, interstitial pneumonia or chronic interstitial changes. If symptoms persist or worsen, consider a short-term follow-up study or additional imaging for further assessment. Labs Labs: Laboratory Results - last 24 hr 01/24/25 01/24/25 01/25/25 16:58 21:01 05:43 WBC 14.8 H RBC 3.95 L Hgb 12.0 Hct 38.5 MCV 97.5 MCH 30.4 MCHC 31.2 L RDW 13.0 Plt Count 317 MPV 10.5 H Sodium 136 L Potassium 4.2 Chloride 103 Carbon Dioxide 25 Anion Gap 8 BUN 33 H Creatinine 1.18 H Estim Creat Clear Calc 35 Estimated GFR 44 L Glucose 103 POC Capillary Glucose 211 H 273 H Calcium 8.6 Magnesium 2.0 01/25/25 01/25/25 07:30 11:11 WBC RBC Hgb Hct MCV MCH MCHC RDW Plt Count MPV Sodium Potassium Chloride Carbon Dioxide Anion Gap BUN Creatinine Estim Creat Clear Calc Estimated GFR Glucose POC Capillary Glucose 85 140 H Calcium Magnesium
[2025-01-25] MEDS: FUROSEMIDE 20 MG TABLET PO (16:33)
[2025-01-25] MEDS: ROSUVASTATIN 20 MG TABLET PO (21:13)
[2025-01-25] MEDS: INSULIN GLARGINE (*BKC) 100 UNITS/ML 38 UNITS SUB-Q (21:18)
[2025-01-25] MEDS: INSULIN ASPART (*BKC) 100 UNITS/ML SUB-Q (21:19)
[2025-01-26] VITALS (15 sets, daily range): BP systolic 104–151; BP diastolic 66–92; PULSE 78–96; RESP 16–22; TEMP 36.1–36.8; O2SAT 93–96
[2025-01-26] MEDS: IPRATROPIUM BR 0.02% INH SOLN 0.5 MG/2.5 ML VIAL INHALATION ×4 (02:24→22:08)
[2025-01-26] MEDS: BENZONATATE 100 MG CAPSULE PO ×3 (06:02→21:27)
[2025-01-26 06:08] LABS: Hematocrit 38.1 % (37.0-47.0); Hemoglobin 12.2 g/dL (12.0-15.0); Mean Corpuscular HGB Conc 32.0 g/dl (32-36); Mean Corpuscular Hemoglobin 30.8 pg (26-34); Mean Corpuscular Volume 96.2 fl (80-100); Platelet Count Result 329 k/mm3 (150-375); Red Blood Count 3.96 M/mm3 (4.2-5.4); White Blood Count 15.0 K/mm3 (4.5-10.0)
[2025-01-26 06:26] LABS: Anion Gap 8 mmol/L (4-12); Blood Urea Nitrogen 33 mg/dL (7-17); Calcium 8.3 mg/dL (8.4-10.2); Carbon Dioxide 25 mmol/L (22-30); Chloride 103 mmol/L (98-107); Estimated CRCL calculation 35 ml/min; Estimated Glomerular Filt Rate 44; Glucose 107 mg/dL (65-110); Magnesium 2.1 mg/dL (1.6-2.3); Potassium 3.6 mmol/L (3.4-5.0); Sodium 136 mmol/L (137-145)
[2025-01-26] MEDS: BUDESONIDE RESPULE NEB 0.5 MG/2 ML AMP INHALATION ×2 (07:02→22:09)
[2025-01-26] MEDS: METOPROLOL SUCCINATE EXT REL 12.5 MG TABCR PO (08:56)
[2025-01-26] MEDS: VENLAFAXINE HCL XR 75 MG CAP.ER.24H 150 MG PO (08:56)
[2025-01-26] MEDS: EMPAGLIFLOZIN 10 MG TABLET PO (08:57)
[2025-01-26] MEDS: CLOPIDOGREL BISULFATE 75 MG TABLET PO (08:57)
[2025-01-26] MEDS: guaiFENesin 12 HR 600 MG TABCR 1200 MG PO ×2 (08:57→20:14)
[2025-01-26] MEDS: APIXABAN 5 MG TABLET PO ×2 (08:57→20:14)
[2025-01-26] MEDS: FLUTICASONE PROPIONATE 0.05% NA SPR 16 GM BTL (*BKC) 1 SPRAY NASAL ×2 (09:00→20:14)
--- NOTE | 2025-01-26 10:41 | P.PNCA_ITS ---
Progress Note: A&P Assessment and Plan (1) ST elevation (STEMI) myocardial infarction: Code(s): I21.3 - ST elevation (STEMI) myocardial infarction of unspecified site Status: Acute (2) Ischemic cardiomyopathy: Code(s): I25.5 - Ischemic cardiomyopathy Status: Acute Plan 79-year-old female with -Anterior STEMI status post PCI to mid LAD -Aspirin allergy -Acute systolic heart failure with LVEF of 20-25% secondary to above -Paroxysmal atrial fibrillation on chronic anticoagulation with Eliquis -Hypotension-SBP remains low in the 90s to 110s range Plan: She has aspirin allergy. Continue Plavix and apixaban Consider aspirin desensitization as outpatient Guideline directed medical therapy for systolic heart failure as blood pressure allows. Continue metoprolol 12.5 mg p.o. daily. Continue losartan 12.5 mg p.o. daily. Continue empagliflozin 10 mg p.o. daily. Continuos rosuvastatin 20 mg p.o. daily Repeat TTE 40 days post revascularization. If LVEF remains less than 35% she will need EP consultation for ICD. She has lifevest for dc She had f/u CXR 01/25 that demonstrated interstitial opacities. She had dose of lasix 20 mg PO yesterday as well. No significant change. continue nebs q 6 hours Subjective Date/time seen: 01/26/25 10:41 Interval history: Reason for encounter: STEMI, acute systolic heart failure Relevant history: 79-year-old female with history of aspirin allergy, paroxysmal atrial fibrillation, hypertension, TIA, diabetes was admitted with STEMI status post primary PCI to mid LAD on 01/14/2025. She had acute heart failure this hospitalization requiring IV diuresis. TTE showed LVEF of 20-25%. Interval history: Patient is sitting up in bed. Continues to report cough with sputum production. She denies any chest pain or shortness of breath. No dizziness or palpitations Review of Systems Review of Systems: All systems reviewed & are unremarkable except as noted in HPI and below Exam Narrative: General: Alert oriented x3, no acute distress Neck: Supple, no JVD Chest: Bilaterally clear to auscultation, no rales or rhonchi Cardiac: S1, S2 +, regular rate, regular rhythm, no murmurs or rubs Extremities: No pedal edema, no skin rash Neurologic: Alert and oriented x3, no focal neurological deficits Objective Data Vital Signs Vital Signs: Vital Signs - 24 hr 01/25/25 12:00 01/25/25 14:00 01/25/25 14:09 Temperature 36.1 C L Pulse Rate 92 93 90 Respiratory Rate 16 20 Blood Pressure 98/57 L Pulse Oximetry 92 Oxygen Delivery 01/25/25 14:19 01/25/25 16:00 01/25/25 20:11 Temperature Pulse Rate 97 97 93 Respiratory Rate 20 18 Blood Pressure Pulse Oximetry 93 Oxygen Delivery Room Air 01/25/25 20:11 01/25/25 20:19 01/25/25 21:26 Temperature 36.3 C L Pulse Rate 93 99 92 Respiratory Rate 18 18 16 Blood Pressure 100/54 L Pulse Oximetry 93 Oxygen Delivery 01/26/25 02:25 01/26/25 02:30 01/26/25 05:36 Temperature 36.8 C Pulse Rate 95 96 87 Respiratory Rate 18 18 18 Blood Pressure 107/70 Pulse Oximetry 96 Oxygen Delivery 01/26/25 07:03 01/26/25 07:15 01/26/25 08:00 Temperature Pulse Rate 94 90 88 Respiratory Rate 18 16 Blood Pressure Pulse Oximetry Oxygen Delivery 01/26/25 08:56 01/26/25 08:57 Temperature Pulse Rate 90 Respiratory Rate Blood Pressure Pulse Oximetry Oxygen Delivery Room Air Intake/Output Intake/Output: Intake & Output 01/23/25 01/24/25 01/25/25 01/26/25 23:59 23:59 23:59 23:59 Intake Total 0803 381 7094 260 Balance 7490 424 3570 260 Meds/Results Medications: Active Medications Generic Name Dose Route Start Last Admin Trade Name Peeq PRN Reason Stop Dose Admin Acetaminophen 650 mg 01/21/25 16:22 01/21/25 16:49 Acetaminophen 325 Mg Tablet PO 650 mg Q6H PRN Administration Mild Pain (1-3) or Fever Apixaban 5 mg 01/15/25 10:55 01/26/25 08:57 Apixaban 5 Mg Tablet PO 5 mg Q12HR DOYLE Administration Benzonatate 100 mg 01/22/25 22:00 01/26/25 06:02 Benzonatate 100 Mg Capsule PO 100 mg Q8HR DOYLE Administration Budesonide 0.5 mg 01/20/25 09:50 01/26/25 07:02 Budesonide Respule Neb 0.5 Mg/2 Ml Amp INHALATION 0.5 mg Q12HRT DOYLE Administration Clopidogrel Bisulfate 75 mg 01/16/25 09:00 01/26/25 08:57 Clopidogrel Bisulfate 75 Mg Tablet PO 75 mg DAILY DOYLE Administration Dextrose 12.5 gm 01/14/25 08:08 Dextrose 50% 25 Gm/50 Ml Syringe IV PUSH PRN PRN Hypoglycemia Protocol Empagliflozin 10 mg 01/19/25 09:00 01/26/25 08:57 Empagliflozin 10 Mg Tablet PO 10 mg DAILY DOYLE Administration Fluticasone Propionate 1 spray 01/15/25 21:00 01/26/25 09:00 Fluticasone Propionate 0.05% Na Spr 16 Gm Btl (*Bkc) NASAL 1 spray Q12HR DOYLE Administration Glucagon 1 mg 01/14/25 08:08 Glucagon For Inj 1 Mg Vial IM PRN PRN Hypoglycemia Protocol Glucose 15 gm 01/14/25 08:08 Glucose Oral Gel 15 Gm Of Glucse In 37.5 Gm Tube PO PRN PRN Hypoglycemia Protocol Guaifenesin 1,200 mg 01/23/25 21:00 01/26/25 08:57 Guaifenesin 12 Hr 600 Mg Tabcr PO 1,200 mg Q12HR DOYLE Administration Guaifenesin/Dextromethorphan 10 ml 01/14/25 09:03 01/25/25 08:31 Guaifenesin/Dextromethorphan 10 Ml Udc PO 10 ml Q4H PRN Administration Cough Dextrose 1,000 mls @ 100 mls/hr 01/14/25 08:08 Dextrose 5% 1,000 Ml IVPB PRN PRN Hypoglycemia Protocol Insulin Aspart 2 - 4 units 01/14/25 21:00 01/25/25 21:19 Insulin Aspart (*Bkc) 100 Units/Ml SUB-Q 3 units HS DOYLE Administration Protocol Insulin Aspart 4 - 8 units 01/14/25 12:00 01/26/25 08:57 Insulin Aspart (*Bkc) 100 Units/Ml SUB-Q Not Given TIDWM [facility] [place] Protocol Insulin Glargine 38 units 01/15/25 21:00 01/25/25 21:18 Insulin Glargine (*Bkc) 100 Units/Ml SUB-Q 38 units HS DOYLE Administration Ipratropium [place] 0.5 mg 01/21/25 20:00 01/26/25 07:02 Ipratropium Br 0.02% Inh Soln 0.5 Mg/2.5 Ml Vial INHALATION 0.5 mg Q6HRT DOYLE Administration Levalbuterol HCl 0.63 mg 01/21/25 20:00 01/26/25 07:02 Levalbuterol Neb 1.25 Mg/3 Ml INHALATION 0.63 mg Q6HRT DOYLE Administration Losartan Potassium 12.5 mg 01/14/25 09:00 01/14/25 09:22 Losartan Potassium 12.5 Mg Tablet PO 12.5 mg On Hold: 01/15/25 07:59 DAILY DOYLE Administration Metoprolol Succinate 25 mg 01/20/25 09:00 01/21/25 07:57 Metoprolol Succinate Ext Rel 25 Mg Tabcr PO 25 mg On Hold: 01/21/25 12:29 QAM DOYLE Administration Metoprolol Succinate 12.5 mg 01/23/25 09:00 01/26/25 08:56 Metoprolol Succinate Ext Rel 12.5 Mg Tabcr PO 12.5 mg QAM DOYLE Administration Ondansetron HCl 4 mg 01/14/25 09:03 01/16/25 12:27 Ondansetron Inj 4 Mg/2 Ml Vial IV PUSH 4 mg Q6H PRN Administration Nausea And Vomiting Prednisone 40 mg 01/22/25 14:15 01/26/25 08:57 Prednisone 20 Mg Tablet PO 40 mg DAILY@0800 DOYLE Administration Rosuvastatin Calcium 20 mg 01/15/25 21:00 01/25/25 21:13 Rosuvastatin 20 Mg Tablet PO 20 mg QHS DOYLE Administration Sitagliptin Phosphate 50 mg 01/22/25 09:00 01/26/25 08:56 Sitagliptin Phosphate 50 Mg Tablet PO 50 mg QAM DOYLE Administration Sodium Chloride 1 spray 01/16/25 14:19 01/17/25 21:07 Saline 0.65% Frank Soln 44 Ml Btl NASAL 1 spray Q6HR PRN Administration Congestion Venlafaxine HCl 150 mg 01/15/25 09:00 01/26/25 08:56 Venlafaxine Hcl Xr 75 Mg Cap.Er.24h PO 150 mg DAILY DOYLE Administration Radiology Results: ITS Impressions Chest/Abdomen/Pelvis CTA 01/14/25 08:21 IMPRESSION: 1. Normal caliber aorta with no dissection. No acute cardiopulmonary disease or acute intra-abdominal/pelvic process. 2. Diverticulosis. Abdomen X-Ray 01/16/25 13:09 Impression: 1. No acute abnormality. Chest X-Ray 01/25/25 12:42 IMPRESSION: 1. Interstitial opacities in both lungs. Differential includes interstitial edema, interstitial pneumonia or chronic interstitial changes. If symptoms persist or worsen, consider a short-term follow-up study or additional imaging for further assessment. Labs Labs: Laboratory Results - last 24 hr 01/25/25 01/25/25 01/25/25 11:11 16:20 19:40 WBC RBC Hgb Hct MCV MCH MCHC RDW Plt Count MPV Sodium Potassium Chloride Carbon Dioxide Anion Gap BUN Creatinine Estim Creat Clear Calc Estimated GFR Glucose POC Capillary Glucose 140 H 234 H 340 H Calcium Magnesium 01/26/25 01/26/25 01/26/25 05:35 06:37 07:31 WBC 15.0 H RBC 3.96 L Hgb 12.2 Hct 38.1 MCV 96.2 MCH 30.8 MCHC 32.0 RDW 12.8 Plt Count 329 MPV 9.8 Sodium 136 L Potassium 3.6 Chloride 103 Carbon Dioxide 25 Anion Gap 8 BUN 33 H Creatinine 1.19 H Estim Creat Clear Calc 35 Estimated GFR 44 L Glucose 107 POC Capillary Glucose 87 66 Calcium 8.3 L Magnesium 2.1 01/26/25 07:52 WBC RBC Hgb Hct MCV MCH MCHC RDW Plt Count MPV Sodium Potassium Chloride Carbon Dioxide Anion Gap BUN Creatinine Estim Creat Clear Calc Estimated GFR Glucose POC Capillary Glucose 90 Calcium Magnesium
--- NOTE | 2025-01-26 11:09 | P.PNCA_ITS ---
Subjective Date/time seen: 01/26/25 11:09 Objective Data Vital Signs Vital Signs: Vital Signs - 24 hr 01/25/25 12:00 01/25/25 14:00 01/25/25 14:09 Temperature 36.1 C L Pulse Rate 92 93 90 Respiratory Rate 16 20 Blood Pressure 98/57 L Pulse Oximetry 92 Oxygen Delivery 01/25/25 14:19 01/25/25 16:00 01/25/25 20:11 Temperature Pulse Rate 97 97 93 Respiratory Rate 20 18 Blood Pressure Pulse Oximetry 93 Oxygen Delivery Room Air 01/25/25 20:11 01/25/25 20:19 01/25/25 21:26 Temperature 36.3 C L Pulse Rate 93 99 92 Respiratory Rate 18 18 16 Blood Pressure 100/54 L Pulse Oximetry 93 Oxygen Delivery 01/26/25 02:25 01/26/25 02:30 01/26/25 05:36 Temperature 36.8 C Pulse Rate 95 96 87 Respiratory Rate 18 18 18 Blood Pressure 107/70 Pulse Oximetry 96 Oxygen Delivery 01/26/25 07:03 01/26/25 07:15 01/26/25 08:00 Temperature Pulse Rate 94 90 88 Respiratory Rate 18 16 Blood Pressure Pulse Oximetry Oxygen Delivery 01/26/25 08:56 01/26/25 08:57 Temperature Pulse Rate 90 Respiratory Rate Blood Pressure Pulse Oximetry Oxygen Delivery Room Air Intake/Output Intake/Output: Intake & Output 01/23/25 01/24/25 01/25/25 01/26/25 23:59 23:59 23:59 23:59 Intake Total 6017 680 6654 260 Balance 5161 266 5828 260 Meds/Results Medications: Active Medications Generic Name Dose Route Start Last Admin Trade Name Freq PRN Reason Stop Dose Admin Acetaminophen 650 mg 01/21/25 16:22 01/21/25 16:49 Acetaminophen 325 Mg Tablet PO 650 mg Q6H PRN Administration Mild Pain (1-3) or Fever Apixaban 5 mg 01/15/25 10:55 01/26/25 08:57 Apixaban 5 Mg Tablet PO 5 mg Q12HR DOYLE Administration Benzonatate 100 mg 01/22/25 22:00 01/26/25 06:02 Benzonatate 100 Mg Capsule PO 100 mg Q8HR DOYLE Administration Budesonide 0.5 mg 01/20/25 09:50 01/26/25 07:02 Budesonide Respule Neb 0.5 Mg/2 Ml Amp INHALATION 0.5 mg Q12HRT DOYLE Administration Clopidogrel Bisulfate 75 mg 01/16/25 09:00 01/26/25 08:57 Clopidogrel Bisulfate 75 Mg Tablet PO 75 mg DAILY DOYLE Administration Dextrose 12.5 gm 01/14/25 08:08 Dextrose 50% 25 Gm/50 Ml Syringe IV PUSH PRN PRN Hypoglycemia Protocol Empagliflozin 10 mg 01/19/25 09:00 01/26/25 08:57 Empagliflozin 10 Mg Tablet PO 10 mg DAILY DOYLE Administration Fluticasone Propionate 1 spray 01/15/25 21:00 01/26/25 09:00 Fluticasone Propionate 0.05% Na Spr 16 Gm Btl (*Bkc) NASAL 1 spray Q12HR DOYLE Administration Glucagon 1 mg 01/14/25 08:08 Glucagon For Inj 1 Mg Vial IM PRN PRN Hypoglycemia Protocol Glucose 15 gm 01/14/25 08:08 Glucose Oral Gel 15 Gm Of Glucse In 37.5 Gm Tube PO PRN PRN Hypoglycemia Protocol Guaifenesin 1,200 mg 01/23/25 21:00 01/26/25 08:57 Guaifenesin 12 Hr 600 Mg Tabcr PO 1,200 mg Q12HR DOYLE Administration Guaifenesin/Dextromethorphan 10 ml 01/14/25 09:03 01/25/25 08:31 Guaifenesin/Dextromethorphan 10 Ml Udc PO 10 ml Q4H PRN Administration Cough Dextrose 1,000 mls @ 100 mls/hr 01/14/25 08:08 Dextrose 5% 1,000 Ml IVPB PRN PRN Hypoglycemia Protocol Insulin Aspart 2 - 4 units 01/14/25 21:00 01/25/25 21:19 Insulin Aspart (*Bkc) 100 Units/Ml SUB-Q 3 units HS DOYLE Administration Protocol Insulin Aspart 4 - 8 units 01/14/25 12:00 01/26/25 08:57 Insulin Aspart (*Bkc) 100 Units/Ml SUB-Q Not Given TIDWM DOYLE Protocol Insulin Glargine 38 units 01/15/25 21:00 01/25/25 21:18 Insulin Glargine (*Bkc) 100 Units/Ml SUB-Q 38 units HS DOYLE Administration Ipratropium [place] 0.5 mg 01/21/25 20:00 01/26/25 07:02 Ipratropium Br 0.02% Inh Soln 0.5 Mg/2.5 Ml Vial INHALATION 0.5 mg Q6HRT DOYLE Administration Levalbuterol HCl 0.63 mg 01/21/25 20:00 01/26/25 07:02 Levalbuterol Neb 1.25 Mg/3 Ml INHALATION 0.63 mg Q6HRT DOYLE Administration Losartan Potassium 12.5 mg 01/14/25 09:00 01/14/25 09:22 Losartan Potassium 12.5 Mg Tablet PO 12.5 mg On Hold: 01/15/25 07:59 DAILY DOYLE Administration Metoprolol Succinate 25 mg 01/20/25 09:00 01/21/25 07:57 Metoprolol Succinate Ext Rel 25 Mg Tabcr PO 25 mg On Hold: 01/21/25 12:29 QAM DOYLE Administration Metoprolol Succinate 12.5 mg 01/23/25 09:00 01/26/25 08:56 Metoprolol Succinate Ext Rel 12.5 Mg Tabcr PO 12.5 mg QAM DOYLE Administration Ondansetron HCl 4 mg 01/14/25 09:03 01/16/25 12:27 Ondansetron Inj 4 Mg/2 Ml Vial IV PUSH 4 mg Q6H PRN Administration Nausea And Vomiting Prednisone 40 mg 01/22/25 14:15 01/26/25 08:57 Prednisone 20 Mg Tablet PO 40 mg DAILY@0800 DOYLE Administration Rosuvastatin Calcium 20 mg 01/15/25 21:00 01/25/25 21:13 Rosuvastatin 20 Mg Tablet PO 20 mg QHS DOYEL Administration Sitagliptin Phosphate 50 mg 01/22/25 09:00 01/26/25 08:56 Sitagliptin Phosphate 50 Mg Tablet PO 50 mg QAM DOYLE Administration Sodium Chloride 1 spray 01/16/25 14:19 01/17/25 21:07 Saline 0.65% Frank Soln 44 Ml Btl NASAL 1 spray Q6HR PRN Administration Congestion Venlafaxine HCl 150 mg 01/15/25 09:00 01/26/25 08:56 Venlafaxine Hcl Xr 75 Mg Cap.Er.24h PO 150 mg DAILY DOYLE Administration Radiology Results: ITS Impressions Chest/Abdomen/Pelvis CTA 01/14/25 08:21 IMPRESSION: 1. Normal caliber aorta with no dissection. No acute cardiopulmonary disease or acute intra-abdominal/pelvic process. 2. Diverticulosis. Abdomen X-Ray 01/16/25 13:09 Impression: 1. No acute abnormality. Chest X-Ray 01/25/25 12:42 IMPRESSION: 1. Interstitial opacities in both lungs. Differential includes interstitial edema, interstitial pneumonia or chronic interstitial changes. If symptoms persist or worsen, consider a short-term follow-up study or additional imaging for further assessment. Labs Labs: Laboratory Results - last 24 hr 01/25/25 01/25/25 01/25/25 11:11 16:20 19:40 WBC RBC Hgb Hct MCV MCH MCHC RDW Plt Count MPV Sodium Potassium Chloride Carbon Dioxide Anion Gap BUN Creatinine Estim Creat Clear Calc Estimated GFR Glucose POC Capillary Glucose 140 H 234 H 340 H Calcium Magnesium 01/26/25 01/26/25 01/26/25 05:35 06:37 07:31 WBC 15.0 H RBC 3.96 L Hgb 12.2 Hct 38.1 MCV 96.2 MCH 30.8 MCHC 32.0 RDW 12.8 Plt Count 329 MPV 9.8 Sodium 136 L Potassium 3.6 Chloride 103 Carbon Dioxide 25 Anion Gap 8 BUN 33 H Creatinine 1.19 H Estim Creat Clear Calc 35 Estimated GFR 44 L Glucose 107 POC Capillary Glucose 87 66 Calcium 8.3 L Magnesium 2.1 01/26/25 07:52 WBC RBC Hgb Hct MCV MCH MCHC RDW Plt Count MPV Sodium Potassium Chloride Carbon Dioxide Anion Gap BUN Creatinine Estim Creat Clear Calc Estimated GFR Glucose POC Capillary Glucose 90 Calcium Magnesium
--- NOTE | 2025-01-26 13:18 | PM.IMPN ---
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 She had a PCI to the LAD with 1 stent placed. Patient is allergic to aspirin she was started on ticagrelor, carvedilol, lisinopril, rosuvastatin. On 01/15/2025 around noon the patient had increased ST elevation in leads V1 and V2, Dr. Rios is concerned about a possible aneurysm will continue with current medical management at this time however if the patient complains of chest pain, has decreased oxygen saturations or decreasing her blood pressure Dr. Rios take her back to the ammunition assembly laborer. Chest x-ray with the findings of CHF. Echo with severe cardiomyopathy with EF 20-25%. Patient started on diuresis with IV Lasix. Repeat Chest x-ray showed findings of respiratory bronchiolitis and was treated with doxycycline. Sputum culture with Haemophilus influenzae. With penicillin allergy will continue doxycycline as ordered. Patient will need LifeVest. Patient on anticoagulation for paroxysmal atrial fibrillation which will be continued. Patient intolerant to aspirin given facial swelling with potential compromise respiratory system and hence on Eliquis and Plavix. Continue statin. For ischemic cardiomyopathy she is on Toprol and losartan blood pressure limiting up titration of these medications. Not tolerating Toprol PT OT recommend home health which has been arranged with the help of care coordination. Do not resuscitate and refuses LifeVest however not agreeable and had been fitted. Repeat TTE as outpatient basis. Respiratory bronchiolitis bronchiolitis, gave Pulmicort nebs, doxycycline, started on prednisone 01/22/2025 and finished 5 days course. re check chest x-ray with mild interstitial edema. Intermittent diuresis DVT profile: Apixaban Subjective Date/time seen: 01/26/25 13:18 Interval history: Ambulating with therapy still has coarse cough minimal expectoration. States Pulmicort nebs helps Review of Systems Review of Systems: All systems reviewed & are unremarkable except as noted in HPI and below Exam Narrative: Patient is comfortable, NAD HEENT: eyes are clear and none icteric LUNGS: Coarse breath sounds no wheezes HEART: RR S1S2 ABD: BS+, Soft and nontender Lower extremities: no edema SKIN: nonjaundiced Neuro: grossly intact. Objective Data Vital Signs Vital Signs: Vital Signs - 24 hr 01/25/25 14:00 01/25/25 14:09 01/25/25 14:19 Temperature 97.0 F L Pulse Rate 93 90 97 Respiratory Rate 16 20 20 Blood Pressure 98/57 L Pulse Oximetry 92 Oxygen Delivery 01/25/25 16:00 01/25/25 20:11 01/25/25 20:11 Temperature Pulse Rate 97 93 93 Respiratory Rate 18 18 Blood Pressure Pulse Oximetry 93 Oxygen Delivery Room Air 01/25/25 20:19 01/25/25 21:26 01/26/25 02:25 Temperature 97.4 F L Pulse Rate 99 92 95 Respiratory Rate 18 16 18 Blood Pressure 100/54 L Pulse Oximetry 93 Oxygen Delivery 01/26/25 02:30 01/26/25 05:36 01/26/25 07:03 Temperature 98.3 F Pulse Rate 96 87 94 Respiratory Rate 18 18 18 Blood Pressure 107/70 Pulse Oximetry 96 Oxygen Delivery 01/26/25 07:15 01/26/25 08:00 01/26/25 08:56 Temperature Pulse Rate 90 88 90 Respiratory Rate 16 Blood Pressure Pulse Oximetry Oxygen Delivery 01/26/25 08:57 01/26/25 12:00 01/26/25 13:08 Temperature Pulse Rate 88 88 Respiratory Rate 18 Blood Pressure Pulse Oximetry Oxygen Delivery Room Air Intake/Output Intake/Output: Intake & Output 01/23/25 01/24/25 01/25/25 01/26/25 23:59 23:59 23:59 23:59 Intake Total 3913 558 1871 260 Balance 2948 220 4320 260 Meds/Results Medications: Active Medications Generic Name Dose Route Start Last Admin Trade Name Freq PRN Reason Stop Dose Admin Acetaminophen 650 mg 01/21/25 16:22 01/21/25 16:49 Acetaminophen 325 Mg Tablet PO 650 mg Q6H PRN Administration Mild Pain (1-3) or Fever Apixaban 5 mg 01/15/25 10:55 01/26/25 08:57 Apixaban 5 Mg Tablet PO 5 mg Q12HR DOYLE Administration Benzonatate 100 mg 01/22/25 22:00 01/26/25 06:02 Benzonatate 100 Mg Capsule PO 100 mg Q8HR DOYLE Administration Budesonide 0.5 mg 01/20/25 09:50 01/26/25 07:02 Budesonide Respule Neb 0.5 Mg/2 Ml Amp INHALATION 0.5 mg Q12HRT DOYLE Administration Clopidogrel Bisulfate 75 mg 01/16/25 09:00 01/26/25 08:57 Clopidogrel Bisulfate 75 Mg Tablet PO 75 mg DAILY DOYLE Administration Dextrose 12.5 gm 01/14/25 08:08 Dextrose 50% 25 Gm/50 Ml Syringe IV PUSH PRN PRN Hypoglycemia Protocol Empagliflozin 10 mg 01/19/25 09:00 01/26/25 08:57 Empagliflozin 10 Mg Tablet PO 10 mg DAILY DOYLE Administration Fluticasone Propionate 1 spray 01/15/25 21:00 01/26/25 09:00 Fluticasone Propionate 0.05% Na Spr 16 Gm Btl (*Bkc) NASAL 1 spray Q12HR DOYLE Administration Glucagon 1 mg 01/14/25 08:08 Glucagon For Inj 1 Mg Vial IM PRN PRN Hypoglycemia Protocol Glucose 15 gm 01/14/25 08:08 Glucose Oral Gel 15 Gm Of Glucse In 37.5 Gm Tube PO PRN PRN Hypoglycemia Protocol Guaifenesin 1,200 mg 01/23/25 21:00 01/26/25 08:57 Guaifenesin 12 Hr 600 Mg Tabcr PO 1,200 mg Q12HR DOYLE Administration Guaifenesin/Dextromethorphan 10 ml 01/14/25 09:03 01/25/25 08:31 Guaifenesin/Dextromethorphan 10 Ml Udc PO 10 ml Q4H PRN Administration Cough Dextrose 1,000 mls @ 100 mls/hr 01/14/25 08:08 Dextrose 5% 1,000 Ml IVPB PRN PRN Hypoglycemia Protocol Insulin Aspart 2 - 4 units 01/14/25 21:00 01/25/25 21:19 Insulin Aspart (*Bkc) 100 Units/Ml SUB-Q 3 units HS DOYLE Administration Protocol Insulin Aspart 4 - 8 units 01/14/25 12:00 01/26/25 13:17 Insulin Aspart (*Bkc) 100 Units/Ml SUB-Q Not Given TIDWM DOYLE Protocol Insulin Glargine 38 units 01/15/25 21:00 01/25/25 21:18 Insulin Glargine (*Bkc) 100 Units/Ml SUB-Q 38 units HS DOYLE Administration Ipratropium [place] 0.5 mg 01/21/25 20:00 01/26/25 13:07 Ipratropium Br 0.02% Inh Soln 0.5 Mg/2.5 Ml Vial INHALATION 0.5 mg Q6HRT DOYLE Administration Levalbuterol HCl 0.63 mg 01/21/25 20:00 01/26/25 13:07 Levalbuterol Neb 1.25 Mg/3 Ml INHALATION 0.63 mg Q6HRT DOYLE Administration Losartan Potassium 12.5 mg 01/14/25 09:00 01/14/25 09:22 Losartan Potassium 12.5 Mg Tablet PO 12.5 mg On Hold: 01/15/25 07:59 DAILY DOYLE Administration Metoprolol Succinate 25 mg 01/20/25 09:00 01/21/25 07:57 Metoprolol Succinate Ext Rel 25 Mg Tabcr PO 25 mg On Hold: 01/21/25 12:29 QAM DOYLE Administration Metoprolol Succinate 12.5 mg 01/23/25 09:00 01/26/25 08:56 Metoprolol Succinate Ext Rel 12.5 Mg Tabcr PO 12.5 mg QAM DOYLE Administration Ondansetron HCl 4 mg 01/14/25 09:03 01/16/25 12:27 Ondansetron Inj 4 Mg/2 Ml Vial IV PUSH 4 mg Q6H PRN Administration Nausea And Vomiting Prednisone 40 mg 01/22/25 14:15 01/26/25 08:57 Prednisone 20 Mg Tablet PO 40 mg DAILY@0800 DOYLE Administration Rosuvastatin Calcium 20 mg 01/15/25 21:00 01/25/25 21:13 Rosuvastatin 20 Mg Tablet PO 20 mg QHS DOYLE Administration Sitagliptin Phosphate 50 mg 01/22/25 09:00 01/26/25 08:56 Sitagliptin Phosphate 50 Mg Tablet PO 50 mg QAM DOYLE Administration Sodium Chloride 1 spray 01/16/25 14:19 01/17/25 21:07 Saline 0.65% Frank Soln 44 Ml Btl NASAL 1 spray Q6HR PRN Administration Congestion Venlafaxine HCl 150 mg 01/15/25 09:00 01/26/25 08:56 Venlafaxine Hcl Xr 75 Mg Cap.Er.24h PO 150 mg DAILY DOYLE Administration Radiology Results: ITS Impressions Chest/Abdomen/Pelvis CTA 01/14/25 08:21 IMPRESSION: 1. Normal caliber aorta with no dissection. No acute cardiopulmonary disease or acute intra-abdominal/pelvic process. 2. Diverticulosis. Abdomen X-Ray 01/16/25 13:09 Impression: 1. No acute abnormality. Chest X-Ray 01/25/25 12:42 IMPRESSION: 1. Interstitial opacities in both lungs. Differential includes interstitial edema, interstitial pneumonia or chronic interstitial changes. If symptoms persist or worsen, consider a short-term follow-up study or additional imaging for further assessment. Labs Labs: Laboratory Results - last 24 hr 01/25/25 01/25/25 01/26/25 16:20 19:40 05:35 WBC 15.0 H RBC 3.96 L Hgb 12.2 Hct 38.1 MCV 96.2 MCH 30.8 MCHC 32.0 RDW 12.8 Plt Count 329 MPV 9.8 Sodium 136 L Potassium 3.6 Chloride 103 Carbon Dioxide 25 Anion Gap 8 BUN 33 H Creatinine 1.19 H Estim Creat Clear Calc 35 Estimated GFR 44 L Glucose 107 POC Capillary Glucose 234 H 340 H Calcium 8.3 L Magnesium 2.1 01/26/25 01/26/25 01/26/25 06:37 07:31 07:52 WBC RBC Hgb Hct MCV MCH MCHC RDW Plt Count MPV Sodium Potassium Chloride Carbon Dioxide Anion Gap BUN Creatinine Estim Creat Clear Calc Estimated GFR Glucose POC Capillary Glucose 87 66 90 Calcium Magnesium 01/26/25 11:38 WBC RBC Hgb Hct MCV MCH MCHC RDW Plt Count MPV Sodium Potassium Chloride Carbon Dioxide Anion Gap BUN Creatinine Estim Creat Clear Calc Estimated GFR Glucose POC Capillary Glucose 101 Calcium Magnesium
[2025-01-26] MEDS: INSULIN ASPART (*BKC) 100 UNITS/ML SUB-Q ×2 (16:51→20:51)
[2025-01-26] MEDS: ROSUVASTATIN 20 MG TABLET PO (20:15)
[2025-01-26] MEDS: INSULIN GLARGINE (*BKC) 100 UNITS/ML 38 UNITS SUB-Q (20:52)
[2025-01-27] VITALS (19 sets, daily range): BP systolic 94–125; BP diastolic 57–75; PULSE 80–96; RESP 18–20; TEMP 35.8–37; O2SAT 92–97
[2025-01-27] MEDS: IPRATROPIUM BR 0.02% INH SOLN 0.5 MG/2.5 ML VIAL INHALATION ×4 (02:52→19:52)
[2025-01-27] MEDS: BENZONATATE 100 MG CAPSULE PO ×3 (05:15→22:26)
[2025-01-27 06:27] LABS: Hematocrit 40.8 % (37.0-47.0); Hemoglobin 12.9 g/dL (12.0-15.0); Mean Corpuscular HGB Conc 31.6 g/dl (32-36); Mean Corpuscular Hemoglobin 30.7 pg (26-34); Mean Corpuscular Volume 97.1 fl (80-100); Platelet Count Result 333 k/mm3 (150-375); Red Blood Count 4.20 M/mm3 (4.2-5.4); White Blood Count 15.8 K/mm3 (4.5-10.0)
[2025-01-27 06:49] LABS: Anion Gap 8 mmol/L (4-12); Blood Urea Nitrogen 32 mg/dL (7-17); Calcium 8.1 mg/dL (8.4-10.2); Carbon Dioxide 22 mmol/L (22-30); Chloride 105 mmol/L (98-107); Estimated CRCL calculation 37 ml/min; Estimated Glomerular Filt Rate 47; Glucose 103 mg/dL (65-110); Magnesium 2.4 mg/dL (1.6-2.3); Potassium 4.2 mmol/L (3.4-5.0); Sodium 135 mmol/L (137-145)
[2025-01-27] MEDS: BUDESONIDE RESPULE NEB 0.5 MG/2 ML AMP INHALATION ×2 (07:37→19:52)
[2025-01-27] MEDS: guaiFENesin 12 HR 600 MG TABCR 1200 MG PO ×2 (08:34→20:33)
[2025-01-27] MEDS: VENLAFAXINE HCL XR 75 MG CAP.ER.24H 150 MG PO (08:34)
[2025-01-27] MEDS: LOSARTAN POTASSIUM 12.5 MG TABLET PO (08:35)
[2025-01-27] MEDS: METOPROLOL SUCCINATE EXT REL 12.5 MG TABCR PO (08:35)
[2025-01-27] MEDS: APIXABAN 5 MG TABLET PO ×2 (08:35→20:33)
[2025-01-27] MEDS: EMPAGLIFLOZIN 10 MG TABLET PO (08:35)
[2025-01-27] MEDS: CLOPIDOGREL BISULFATE 75 MG TABLET PO (08:35)
[2025-01-27] MEDS: FLUTICASONE PROPIONATE 0.05% NA SPR 16 GM BTL (*BKC) 1 SPRAY NASAL ×2 (08:38→20:32)
--- NOTE | 2025-01-27 10:15 | PM.PNCARD ---
Progress Note: A&P Assessment and Plan (1) ST elevation (STEMI) myocardial infarction: Code(s): I21.3 - ST elevation (STEMI) myocardial infarction of unspecified site Status: Acute (2) Ischemic cardiomyopathy: Code(s): I25.5 - Ischemic cardiomyopathy Status: Acute Plan 79-year-old female with -Anterior STEMI status post PCI to mid LAD -Aspirin allergy -Acute systolic heart failure with LVEF of 20-25% secondary to above -Paroxysmal atrial fibrillation on chronic anticoagulation with Eliquis -Hypotension-SBP remains low in the 90s to 110s range Plan: She has aspirin allergy. Continue Plavix and apixaban Consider aspirin desensitization as outpatient Guideline directed medical therapy for systolic heart failure as blood pressure allows. Continue metoprolol 12.5 mg p.o. daily. Continue losartan 12.5 mg p.o. daily. Continue empagliflozin 10 mg p.o. daily. Will give dose of PO lasix today d/t persistent cough and stable BP Continuos rosuvastatin 20 mg p.o. daily Repeat TTE 40 days post revascularization. If LVEF remains less than 35% she will need EP consultation for ICD. She has lifevest for dc She had f/u CXR 01/25 that demonstrated interstitial opacities. No significant change. continue nebs q 6 hours Subjective Date/time seen: 01/27/25 10:15 Interval history: 01/27/25: Sitting up in bed. Continues to experience cough. No shortness of breath. No chest pain or pressure. She feels the breathing treatments do help Review of Systems Review of Systems: All systems reviewed & are unremarkable except as noted in HPI and below Exam Narrative: General: Alert oriented x3, no acute distress Neck: Supple, no JVD Chest: Bilaterally coarse Cardiac: S1, S2 +, regular rate, regular rhythm, no murmurs or rubs Extremities: No pedal edema, no skin rash Neurologic: Alert and oriented x3, no focal neurological deficits Objective Data Vital Signs Vital Signs: Vital Signs - 24 hr 01/26/25 12:00 01/26/25 13:08 01/26/25 13:49 Temperature 36.1 C L Pulse Rate 88 88 95 Respiratory Rate 18 20 Blood Pressure 151/92 H Pulse Oximetry 96 Oxygen Delivery Fraction of Inspired Oxygen 01/26/25 16:00 01/26/25 20:00 01/26/25 20:00 Temperature Pulse Rate 80 91 Respiratory Rate Blood Pressure Pulse Oximetry Oxygen Delivery Room Air Fraction of Inspired Oxygen 01/26/25 21:12 01/26/25 22:09 01/26/25 22:14 Temperature 36.1 C L Pulse Rate 78 89 89 Respiratory Rate 18 22 H 22 H Blood Pressure 104/66 Pulse Oximetry 94 93 Oxygen Delivery Room Air Fraction of Inspired Oxygen 01/27/25 00:00 01/27/25 02:52 01/27/25 04:00 Temperature Pulse Rate 89 83 84 Respiratory Rate 18 Blood Pressure Pulse Oximetry Oxygen Delivery Fraction of Inspired Oxygen 01/27/25 05:04 01/27/25 07:39 01/27/25 07:39 Temperature 36.2 C L Pulse Rate 87 93 93 Respiratory Rate 18 20 20 Blood Pressure 125/75 Pulse Oximetry 92 95 Oxygen Delivery Room Air Fraction of Inspired Oxygen 01/27/25 07:52 01/27/25 08:35 Temperature Pulse Rate 89 91 Respiratory Rate 20 Blood Pressure Pulse Oximetry Oxygen Delivery Fraction of Inspired Oxygen Intake/Output Intake/Output: Intake & Output 01/24/25 01/25/25 01/26/25 01/27/25 23:59 23:59 23:59 23:59 Intake Total 940 1270 620 Balance 940 1270 620 Meds/Results Medications: Active Medications Generic Name Dose Route Start Last Admin Trade Name Freq PRN Reason Stop Dose Admin Acetaminophen 650 mg 01/21/25 16:22 01/21/25 16:49 Acetaminophen 325 Mg Tablet PO 650 mg Q6H PRN Administration Mild Pain (1-3) or Fever Apixaban 5 mg 01/15/25 10:55 01/27/25 08:35 Apixaban 5 Mg Tablet PO 5 mg Q12HR DOYLE Administration Benzonatate 100 mg 01/22/25 22:00 01/27/25 05:15 Benzonatate 100 Mg Capsule PO 100 mg Q8HR DOYLE Administration Budesonide 0.5 mg 01/20/25 09:50 01/27/25 07:37 Budesonide Respule Neb 0.5 Mg/2 Ml Amp INHALATION 0.5 mg Q12HRT DOYLE Administration Clopidogrel Bisulfate 75 mg 01/16/25 09:00 01/27/25 08:35 Clopidogrel Bisulfate 75 Mg Tablet PO 75 mg DAILY DOYLE Administration Dextrose 12.5 gm 01/14/25 08:08 Dextrose 50% 25 Gm/50 Ml Syringe IV PUSH PRN PRN Hypoglycemia Protocol Empagliflozin 10 mg 01/19/25 09:00 01/27/25 08:35 Empagliflozin 10 Mg Tablet PO 10 mg DAILY DOYLE Administration Fluticasone Propionate 1 spray 01/15/25 21:00 01/27/25 08:38 Fluticasone Propionate 0.05% Na Spr 16 Gm Btl (*Bkc) NASAL 1 spray Q12HR DOYLE Administration Furosemide 20 mg 01/27/25 10:12 Furosemide 20 Mg Tablet PO 01/27/25 10:13 ONCE ONE Glucagon 1 mg 01/14/25 08:08 Glucagon For Inj 1 Mg Vial IM PRN PRN Hypoglycemia Protocol Glucose 15 gm 01/14/25 08:08 Glucose Oral Gel 15 Gm Of Glucse In 37.5 Gm Tube PO PRN PRN Hypoglycemia Protocol Guaifenesin 1,200 mg 01/23/25 21:00 01/27/25 08:34 Guaifenesin 12 Hr 600 Mg Tabcr PO 1,200 mg Q12HR DOYLE Administration Guaifenesin/Dextromethorphan 10 ml 01/14/25 09:03 01/25/25 08:31 Guaifenesin/Dextromethorphan 10 Ml Udc PO 10 ml Q4H PRN Administration Cough Dextrose 1,000 mls @ 100 mls/hr 01/14/25 08:08 Dextrose 5% 1,000 Ml IVPB PRN PRN Hypoglycemia Protocol Insulin Aspart 2 - 4 units 01/14/25 21:00 01/26/25 20:51 Insulin Aspart (*Bkc) 100 Units/Ml SUB-Q 2 units HS DOYLE Administration Protocol Insulin Aspart 4 - 8 units 01/14/25 12:00 01/27/25 08:38 Insulin Aspart (*Bkc) 100 Units/Ml SUB-Q Not Given TIDWM DOYLE Protocol Insulin Glargine 38 units 01/15/25 21:00 01/26/25 20:52 Insulin Glargine (*Bkc) 100 Units/Ml SUB-Q 38 units HS DOYLE Administration Ipratropium [place] 0.5 mg 01/21/25 20:00 01/27/25 07:37 Ipratropium Br 0.02% Inh Soln 0.5 Mg/2.5 Ml Vial INHALATION 0.5 mg Q6HRT DOYLE Administration Levalbuterol HCl 0.63 mg 01/21/25 20:00 01/27/25 07:37 Levalbuterol Neb 1.25 Mg/3 Ml INHALATION 0.63 mg Q6HRT DOYLE Administration Losartan Potassium 12.5 mg 01/14/25 09:00 01/27/25 08:35 Losartan Potassium 12.5 Mg Tablet PO 12.5 mg DAILY DOYLE Administration Metoprolol Succinate 25 mg 01/20/25 09:00 01/21/25 07:57 Metoprolol Succinate Ext Rel 25 Mg Tabcr PO 25 mg On Hold: 01/21/25 12:29 QAM DOYLE Administration Metoprolol Succinate 12.5 mg 01/23/25 09:00 01/27/25 08:35 Metoprolol Succinate Ext Rel 12.5 Mg Tabcr PO 12.5 mg QAM DOYLE Administration Ondansetron HCl 4 mg 01/14/25 09:03 01/16/25 12:27 Ondansetron Inj 4 Mg/2 Ml Vial IV PUSH 4 mg Q6H PRN Administration Nausea And Vomiting Rosuvastatin Calcium 20 mg 01/15/25 21:00 01/26/25 20:15 Rosuvastatin 20 Mg Tablet PO 20 mg QHS DOYLE Administration Sitagliptin Phosphate 50 mg 01/22/25 09:00 01/27/25 08:34 Sitagliptin Phosphate 50 Mg Tablet PO 50 mg QAM DOYLE Administration Sodium Chloride 1 spray 01/16/25 14:19 01/17/25 21:07 Saline 0.65% Frank Soln 44 Ml Btl NASAL 1 spray Q6HR PRN Administration Congestion Venlafaxine HCl 150 mg 01/15/25 09:00 01/27/25 08:34 Venlafaxine Hcl Xr 75 Mg Cap.Er.24h PO 150 mg DAILY DOYLE Administration Radiology Results: ITS Impressions Chest/Abdomen/Pelvis CTA 01/14/25 08:21 IMPRESSION: 1. Normal caliber aorta with no dissection. No acute cardiopulmonary disease or acute intra-abdominal/pelvic process. 2. Diverticulosis. Abdomen X-Ray 01/16/25 13:09 Impression: 1. No acute abnormality. Chest X-Ray 01/25/25 12:42 IMPRESSION: 1. Interstitial opacities in both lungs. Differential includes interstitial edema, interstitial pneumonia or chronic interstitial changes. If symptoms persist or worsen, consider a short-term follow-up study or additional imaging for further assessment. Labs Labs: Laboratory Results - last 24 hr 01/26/25 01/26/25 01/26/25 11:38 16:13 20:32 WBC RBC Hgb Hct MCV MCH MCHC RDW Plt Count MPV Sodium Potassium Chloride Carbon Dioxide Anion Gap BUN Creatinine Estim Creat Clear Calc Estimated GFR Glucose POC Capillary Glucose 101 289 H 288 H Calcium Magnesium 01/27/25 01/27/25 05:39 07:28 WBC 15.8 H RBC 4.20 Hgb 12.9 Hct 40.8 MCV 97.1 MCH 30.7 MCHC 31.6 L RDW 13.2 Plt Count 333 MPV 10.0 Sodium 135 L Potassium 4.2 Chloride 105 Carbon Dioxide 22 Anion Gap 8 BUN 32 H Creatinine 1.12 H Estim Creat Clear Calc 37 Estimated GFR 47 L Glucose 103 POC Capillary Glucose 104 Calcium 8.1 L Magnesium 2.4 H
[2025-01-27] MEDS: FUROSEMIDE 20 MG TABLET PO (10:33)
--- NOTE | 2025-01-27 14:18 | PM.IMPN ---
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 She was found to have a ST-elevation myocardial infarction and was taken to the cath lab radiological technologist that day. She had a PCI to the LAD with 1 stent placed. Patient is allergic to aspirin she was started on ticagrelor, carvedilol, lisinopril, rosuvastatin. On 01/15/2025 around noon the patient had increased ST elevation in leads V1 and V2, Dr. Rios is concerned about a possible aneurysm with plan to continue with current medical management at this time however if the patient complains of chest pain, has decreased oxygen saturations or decreasing her blood pressure, Dr. Rios to take her back to the cath lab radiological technologist. Chest x-ray with the findings of CHF. Echo with severe cardiomyopathy with EF 20-25%. Patient started on diuresis with IV Lasix. Repeat Chest x-ray showed findings of respiratory bronchiolitis and was treated with doxycycline. Sputum culture with Haemophilus influenzae. With penicillin allergy, she was treated with doxycycline as ordered. Patient will need LifeVest. Patient on anticoagulation for paroxysmal atrial fibrillation which will be continued. Patient intolerant to aspirin given facial swelling with potential compromise respiratory system and hence on Eliquis and Plavix. Continue statin. For ischemic cardiomyopathy she is on losartan. Blood pressure limiting up titration of these medications. Not tolerating Toprol and currently on hold PT OT recommend home health which has been arranged with the help of care coordination. Do not resuscitate and refuses LifeVest however now agreeable and had been fitted. Repeat TTE as outpatient basis. Respiratory bronchiolitis bronchiolitis, gave Pulmicort nebs, doxycycline, started on prednisone 01/22/2025 and finished 5 days course on 01/26. re check chest x-ray 01/25 with mild interstitial edema. Intermittent diuresis Check CT chest. Check viral studies. Called daughter per patient's request but no answer. DVT profile: Apixaban Code status - DNR Subjective Date/time seen: 01/27/25 14:18 Interval history: 79 year old female with past medical history of anxiety, depression, TIA, hypertension, acid reflux, diabetes and arthritis presented the ED on 01/14/2025 in the early hours with complains of chest pain. Assuming care. Chart reviewed. Patient complains of cough occasionally productive white sputum. Nebulizers are helping her symptoms. She does not have a history of asthma. Remote history of tobacco use. No fever or chills. No recent travel. No sick contacts. She has had the cough for about 2 weeks. Exam Narrative: AF 96.5 101/57 83 18 97% ra Gen - Patient is comfortable, NAD LUNGS: Prolonged expiratory phase with end-expiratory wheezes. HEART: RRR S1/S2 ABD: BS+, Soft and nontender Lower extremities: no edema SKIN: nonjaundiced Neuro: grossly intact. Psych -normal mood and affect Objective Data Vital Signs Vital Signs: Vital Signs - 24 hr 01/26/25 16:00 01/26/25 20:00 01/26/25 20:00 Temperature Pulse Rate 80 91 Respiratory Rate Blood Pressure Pulse Oximetry Oxygen Delivery Room Air Fraction of Inspired Oxygen 01/26/25 21:12 01/26/25 22:09 01/26/25 22:14 Temperature 97.0 F L Pulse Rate 78 89 89 Respiratory Rate 18 22 H 22 H Blood Pressure 104/66 Pulse Oximetry 94 93 Oxygen Delivery Room Air Fraction of Inspired Oxygen 01/27/25 00:00 01/27/25 02:52 01/27/25 04:00 Temperature Pulse Rate 89 83 84 Respiratory Rate 18 Blood Pressure Pulse Oximetry Oxygen Delivery Fraction of Inspired Oxygen 01/27/25 05:04 01/27/25 07:39 01/27/25 07:39 Temperature 97.2 F L Pulse Rate 87 93 93 Respiratory Rate 18 20 20 Blood Pressure 125/75 Pulse Oximetry 92 95 Oxygen Delivery Room Air Fraction of Inspired Oxygen 21 01/27/25 07:52 01/27/25 08:35 01/27/25 08:36 Temperature Pulse Rate 89 91 91 Respiratory Rate 20 Blood Pressure Pulse Oximetry 96 Oxygen Delivery Room Air Fraction of Inspired Oxygen 01/27/25 14:00 Temperature 96.5 F L Pulse Rate 83 Respiratory Rate 18 Blood Pressure 101/57 L Pulse Oximetry 97 Oxygen Delivery Fraction of Inspired Oxygen Intake/Output Intake/Output: Intake & Output 01/24/25 01/25/25 01/26/25 01/27/25 23:59 23:59 23:59 23:59 Intake Total 940 1270 620 480 Balance 940 1270 620 480 Meds/Results Medications: Active Medications Generic Name Dose Route Start Last Admin Trade Name Freq PRN Reason Stop Dose Admin Acetaminophen 650 mg 01/21/25 16:22 01/21/25 16:49 Acetaminophen 325 Mg Tablet PO 650 mg Q6H PRN Administration Mild Pain (1-3) or Fever Apixaban 5 mg 01/15/25 10:55 01/27/25 08:35 Apixaban 5 Mg Tablet PO 5 mg Q12HR DOYLE Administration Benzonatate 100 mg 01/22/25 22:00 01/27/25 05:15 Benzonatate 100 Mg Capsule PO 100 mg Q8HR DOYLE Administration Budesonide 0.5 mg 01/20/25 09:50 01/27/25 07:37 Budesonide Respule Neb 0.5 Mg/2 Ml Amp INHALATION 0.5 mg Q12HRT DOYLE Administration Clopidogrel Bisulfate 75 mg 01/16/25 09:00 01/27/25 08:35 Clopidogrel Bisulfate 75 Mg Tablet PO 75 mg DAILY DOYLE Administration Dextrose 12.5 gm 01/14/25 08:08 Dextrose 50% 25 Gm/50 Ml Syringe IV PUSH PRN PRN Hypoglycemia Protocol Empagliflozin 10 mg 01/19/25 09:00 01/27/25 08:35 Empagliflozin 10 Mg Tablet PO 10 mg DAILY DOYLE Administration Fluticasone Propionate 1 spray 01/15/25 21:00 01/27/25 08:38 Fluticasone Propionate 0.05% Na Spr 16 Gm Btl (*Bkc) NASAL 1 spray Q12HR DOYLE Administration Glucagon 1 mg 01/14/25 08:08 Glucagon For Inj 1 Mg Vial IM PRN PRN Hypoglycemia Protocol Glucose 15 gm 01/14/25 08:08 Glucose Oral Gel 15 Gm Of Glucse In 37.5 Gm Tube PO PRN PRN Hypoglycemia Protocol Guaifenesin 1,200 mg 01/23/25 21:00 01/27/25 08:34 Guaifenesin 12 Hr 600 Mg Tabcr PO 1,200 mg Q12HR DOYLE Administration Guaifenesin/Dextromethorphan 10 ml 01/14/25 09:03 01/25/25 08:31 Guaifenesin/Dextromethorphan 10 Ml Udc PO 10 ml Q4H PRN Administration Cough Dextrose 1,000 mls @ 100 mls/hr 01/14/25 08:08 Dextrose 5% 1,000 Ml IVPB PRN PRN Hypoglycemia Protocol Insulin Aspart 2 - 4 units 01/14/25 21:00 01/26/25 20:51 Insulin Aspart (*Bkc) 100 Units/Ml SUB-Q 2 units HS DOYLE Administration Protocol Insulin Aspart 4 - 8 units 01/14/25 12:00 01/27/25 11:46 Insulin Aspart (*Bkc) 100 Units/Ml SUB-Q Not Given TID[facility] Protocol Insulin Glargine 38 units 01/15/25 21:00 01/26/25 20:52 Insulin Glargine (*Bkc) 100 Units/Ml SUB-Q 38 units HS DOYLE Administration Ipratropium [place] 0.5 mg 01/21/25 20:00 01/27/25 07:37 Ipratropium Br 0.02% Inh Soln 0.5 Mg/2.5 Ml Vial INHALATION 0.5 mg Q6HRT DOYLE Administration Levalbuterol HCl 0.63 mg 01/21/25 20:00 01/27/25 07:37 Levalbuterol Neb 1.25 Mg/3 Ml INHALATION 0.63 mg Q6HRT DOYLE Administration Losartan Potassium 12.5 mg 01/14/25 09:00 01/27/25 08:35 Losartan Potassium 12.5 Mg Tablet PO 12.5 mg DAILY DOYLE Administration Metoprolol Succinate 25 mg 01/20/25 09:00 01/21/25 07:57 Metoprolol Succinate Ext Rel 25 Mg Tabcr PO 25 mg On Hold: 01/21/25 12:29 QAM DOYLE Administration Metoprolol Succinate 12.5 mg 01/23/25 09:00 01/27/25 08:35 Metoprolol Succinate Ext Rel 12.5 Mg Tabcr PO 12.5 mg QAM DOYLE Administration Ondansetron HCl 4 mg 01/14/25 09:03 01/16/25 12:27 Ondansetron Inj 4 Mg/2 Ml Vial IV PUSH 4 mg Q6H PRN Administration Nausea And Vomiting Rosuvastatin Calcium 20 mg 01/15/25 21:00 01/26/25 20:15 Rosuvastatin 20 Mg Tablet PO 20 mg QHS DOYLE Administration Sitagliptin Phosphate 50 mg 01/22/25 09:00 01/27/25 08:34 Sitagliptin Phosphate 50 Mg Tablet PO 50 mg QAM DOYLE Administration Sodium Chloride 1 spray 01/16/25 14:19 01/17/25 21:07 Saline 0.65% Frank Soln 44 Ml Btl NASAL 1 spray Q6HR PRN Administration Congestion Venlafaxine HCl 150 mg 01/15/25 09:00 01/27/25 08:34 Venlafaxine Hcl Xr 75 Mg Cap.Er.24h PO 150 mg DAILY DOYLE Administration Radiology Results: ITS Impressions Chest/Abdomen/Pelvis CTA 01/14/25 08:21 IMPRESSION: 1. Normal caliber aorta with no dissection. No acute cardiopulmonary disease or acute intra-abdominal/pelvic process. 2. Diverticulosis. Abdomen X-Ray 01/16/25 13:09 Impression: 1. No acute abnormality. Chest X-Ray 01/25/25 12:42 IMPRESSION: 1. Interstitial opacities in both lungs. Differential includes interstitial edema, interstitial pneumonia or chronic interstitial changes. If symptoms persist or worsen, consider a short-term follow-up study or additional imaging for further assessment. Labs Labs: Laboratory Results - last 24 hr 01/26/25 01/26/25 01/27/25 16:13 20:32 05:39 WBC 15.8 H RBC 4.20 Hgb 12.9 Hct 40.8 MCV 97.1 MCH 30.7 MCHC 31.6 L RDW 13.2 Plt Count 333 MPV 10.0 Sodium 135 L Potassium 4.2 Chloride 105 Carbon Dioxide 22 Anion Gap 8 BUN 32 H Creatinine 1.12 H Estim Creat Clear Calc 37 Estimated GFR 47 L Glucose 103 POC Capillary Glucose 289 H 288 H Calcium 8.1 L Magnesium 2.4 H 01/27/25 01/27/25 07:28 11:11 WBC RBC Hgb Hct MCV MCH MCHC RDW Plt Count MPV Sodium Potassium Chloride Carbon Dioxide Anion Gap BUN Creatinine Estim Creat Clear Calc Estimated GFR Glucose POC Capillary Glucose 104 133 H Calcium Magnesium
[2025-01-27] MEDS: ROSUVASTATIN 20 MG TABLET PO (20:33)
[2025-01-27] MEDS: INSULIN GLARGINE (*BKC) 100 UNITS/ML 38 UNITS SUB-Q (20:35)
[2025-01-28] VITALS (19 sets, daily range): BP systolic 101–116; BP diastolic 56–68; PULSE 77–93; RESP 16–20; TEMP 35.9–37.4; O2SAT 92–98
[2025-01-28] MEDS: IPRATROPIUM BR 0.02% INH SOLN 0.5 MG/2.5 ML VIAL INHALATION ×4 (02:02→20:34)
[2025-01-28] MEDS: BENZONATATE 100 MG CAPSULE PO ×3 (05:19→22:15)
--- NOTE | 2025-01-28 07:06 | ECG_ITS ---
Test Date: 2025-01-28 07:28:33 Measurements Intervals [place] Rate: 89 P: 41 CT: 174 QRS: 23 QRSD: 97 T: 91 QT: 369 QTc: 451 Interpretive Statements SINUS RHYTHM PREVIOUS ANTEROSEPTAL INFARCTION ABNORMAL QRS-T ANGLE [QRS-T AXIS DIFFERENCE > 60] ABNORMAL ECG Compared to ECG 01/18/2025 15:58:16 NO SIGNIFICANT CHANGE Electronically Signed On 01-28-2025 12:45:48 CDT by Pantera Muller M.D.
--- NOTE | 2025-01-28 07:15 | P.PNCA_ITS ---
Progress Note: A&P Assessment and Plan (1) ST elevation (STEMI) myocardial infarction: Code(s): I21.3 - ST elevation (STEMI) myocardial infarction of unspecified site Status: Acute (2) Ischemic cardiomyopathy: Code(s): I25.5 - Ischemic cardiomyopathy Status: Acute Plan 79-year-old female with: -Anterior STEMI status post PCI to mid LAD -Aspirin allergy -Acute systolic heart failure with LVEF of 20-25% secondary to above -Paroxysmal atrial fibrillation on chronic anticoagulation with Eliquis -Hypotension-SBP remains low in the 90s to 110s range Plan: She has aspirin allergy. Continue Plavix and apixaban the setting of recent PCI to mid LAD Consider aspirin desensitization as outpatient Continuos rosuvastatin 20 mg p.o. daily Guideline directed medical therapy for systolic heart failure as blood pressure allows. Continue metoprolol 12.5 mg p.o. daily and empagliflozin 10 mg p.o. daily. Her cough started during this hospitalization. Also losartan was initiated during this hospitalization. I am going to stop her losartan to see if her cough resolves Repeat TTE 40 days post revascularization. If LVEF remains less than 35% she will need EP consultation for ICD. She has lifevest for dc Subjective Date/time seen: 01/28/25 07:15 Interval history: Reason for encounter: STEMI status post PCI to mid LAD, ischemic cardiomyopathy Interval history: Patient is in bed at the time of my visit with her. She reports ongoing cough and sputum. She is unable to bring up anything. No shortness of breath, chest pain, palpitations. Review of Systems Review of Systems: All systems reviewed & are unremarkable except as noted in HPI and below Exam Narrative: General: Alert oriented x3, no acute distress, coughing intermittently Neck: Supple, no JVD Chest: Bilaterally coarse, no rhonchi Cardiac: S1, S2 +, regular rate, regular rhythm, no murmurs or rubs Extremities: No pedal edema, no skin rash Neurologic: Alert and oriented x3, no focal neurological deficits Objective Data Vital Signs Vital Signs: Vital Signs - 24 hr 01/27/25 07:39 01/27/25 07:39 01/27/25 07:52 Temperature Pulse Rate 93 93 89 Respiratory Rate 20 20 20 Blood Pressure Pulse Oximetry 95 Oxygen Delivery Room Air Fraction of Inspired Oxygen 21 01/27/25 08:00 01/27/25 08:35 01/27/25 08:36 Temperature Pulse Rate 92 91 91 Respiratory Rate Blood Pressure Pulse Oximetry 96 Oxygen Delivery Room Air Fraction of Inspired Oxygen 01/27/25 12:00 01/27/25 14:00 01/27/25 14:47 Temperature 35.8 C L Pulse Rate 87 83 95 Respiratory Rate 18 20 Blood Pressure 101/57 L Pulse Oximetry 97 93 Oxygen Delivery Room Air Fraction of Inspired Oxygen 21 01/27/25 14:47 01/27/25 15:04 01/27/25 16:00 Temperature Pulse Rate 95 96 88 Respiratory Rate 20 20 Blood Pressure Pulse Oximetry Oxygen Delivery Fraction of Inspired Oxygen 01/27/25 19:52 01/27/25 19:55 01/27/25 19:56 Temperature 37.0 C Pulse Rate 89 89 89 Respiratory Rate 20 20 Blood Pressure 94/70 L Pulse Oximetry 93 93 Oxygen Delivery Room Air Fraction of Inspired Oxygen 21 01/27/25 20:00 01/27/25 20:05 01/27/25 21:23 Temperature Pulse Rate 80 92 Respiratory Rate 20 Blood Pressure Pulse Oximetry Oxygen Delivery Room Air Fraction of Inspired Oxygen 01/28/25 00:00 01/28/25 02:02 01/28/25 02:16 Temperature Pulse Rate 84 78 81 Respiratory Rate 20 20 Blood Pressure Pulse Oximetry Oxygen Delivery Fraction of Inspired Oxygen 01/28/25 04:00 01/28/25 06:00 Temperature 36.1 C L Pulse Rate 82 86 Respiratory Rate 20 Blood Pressure 105/56 L Pulse Oximetry 98 Oxygen Delivery Fraction of Inspired Oxygen Intake/Output Intake/Output: Intake & Output 01/25/25 01/26/25 01/27/25 01/28/25 23:59 23:59 23:59 23:59 Intake Total 1270 620 720 250 Balance 1270 620 720 250 Meds/Results Medications: Active Medications Generic Name Dose Route Start Last Admin Trade Name Freq PRN Reason Stop Dose Admin Acetaminophen 650 mg 01/21/25 16:22 01/21/25 16:49 Acetaminophen 325 Mg Tablet PO 650 mg Q6H PRN Administration Mild Pain (1-3) or Fever Apixaban 5 mg 01/15/25 10:55 01/27/25 20:33 Apixaban 5 Mg Tablet PO 5 mg Q12HR DOYLE Administration Benzonatate 100 mg 01/22/25 22:00 01/28/25 05:19 Benzonatate 100 Mg Capsule PO 100 mg Q8HR DOYLE Administration Budesonide 0.5 mg 01/20/25 09:50 01/27/25 19:52 Budesonide Respule Neb 0.5 Mg/2 Ml Amp INHALATION 0.5 mg Q12HRT DOYLE Administration Clopidogrel Bisulfate 75 mg 01/16/25 09:00 01/27/25 08:35 Clopidogrel Bisulfate 75 Mg Tablet PO 75 mg DAILY DOYLE Administration Dextrose 12.5 gm 01/14/25 08:08 Dextrose 50% 25 Gm/50 Ml Syringe IV PUSH PRN PRN Hypoglycemia Protocol Empagliflozin 10 mg 01/19/25 09:00 01/27/25 08:35 Empagliflozin 10 Mg Tablet PO 10 mg DAILY DOYLE Administration Fluticasone Propionate 1 spray 01/15/25 21:00 01/27/25 20:32 Fluticasone Propionate 0.05% Na Spr 16 Gm Btl (*Bkc) NASAL 1 spray Q12HR DOYLE Administration Glucagon 1 mg 01/14/25 08:08 Glucagon For Inj 1 Mg Vial IM PRN PRN Hypoglycemia Protocol Glucose 15 gm 01/14/25 08:08 Glucose Oral Gel 15 Gm Of Glucse In 37.5 Gm Tube PO PRN PRN Hypoglycemia Protocol Guaifenesin 1,200 mg 01/23/25 21:00 01/27/25 20:33 Guaifenesin 12 Hr 600 Mg Tabcr PO 1,200 mg Q12HR DOYLE Administration Guaifenesin/Dextromethorphan 10 ml 01/14/25 09:03 01/25/25 08:31 Guaifenesin/Dextromethorphan 10 Ml Udc PO 10 ml Q4H PRN Administration Cough Dextrose 1,000 mls @ 100 mls/hr 01/14/25 08:08 Dextrose 5% 1,000 Ml IVPB PRN PRN Hypoglycemia Protocol Insulin Aspart 2 - 4 units 01/14/25 21:00 01/27/25 20:39 Insulin Aspart (*Bkc) 100 Units/Ml SUB-Q Not Given HS DOYLE Protocol Insulin Aspart 4 - 8 units 01/14/25 12:00 01/27/25 17:12 Insulin Aspart (*Bkc) 100 Units/Ml SUB-Q Not Given TIDWM DOYLE Protocol Insulin Glargine 38 units 01/15/25 21:00 01/27/25 20:35 Insulin Glargine (*Bkc) 100 Units/Ml SUB-Q 38 units HS DOYLE Administration Ipratropium [place] 0.5 mg 01/21/25 20:00 01/28/25 02:02 Ipratropium Br 0.02% Inh Soln 0.5 Mg/2.5 Ml Vial INHALATION 0.5 mg Q6HRT DOYLE Administration Levalbuterol HCl 0.63 mg 01/21/25 20:00 01/28/25 02:02 Levalbuterol Neb 1.25 Mg/3 Ml INHALATION 0.63 mg Q6HRT DOYLE Administration Losartan Potassium 12.5 mg 01/14/25 09:00 01/27/25 08:35 Losartan Potassium 12.5 Mg Tablet PO 12.5 mg DAILY DOYLE Administration Metoprolol Succinate 25 mg 01/20/25 09:00 01/21/25 07:57 Metoprolol Succinate Ext Rel 25 Mg Tabcr PO 25 mg On Hold: 01/21/25 12:29 QAM DOYLE Administration Metoprolol Succinate 12.5 mg 01/23/25 09:00 01/27/25 08:35 Metoprolol Succinate Ext Rel 12.5 Mg Tabcr PO 12.5 mg QAM DOYLE Administration Ondansetron HCl 4 mg 01/14/25 09:03 01/16/25 12:27 Ondansetron Inj 4 Mg/2 Ml Vial IV PUSH 4 mg Q6H PRN Administration Nausea And Vomiting Rosuvastatin Calcium 20 mg 01/15/25 21:00 01/27/25 20:33 Rosuvastatin 20 Mg Tablet PO 20 mg QHS DOYLE Administration Sitagliptin Phosphate 50 mg 01/22/25 09:00 01/27/25 08:34 Sitagliptin Phosphate 50 Mg Tablet PO 50 mg QAM DOYLE Administration Sodium Chloride 1 spray 01/16/25 14:19 01/17/25 21:07 Saline 0.65% Frank Soln 44 Ml Btl NASAL 1 spray Q6HR PRN Administration Congestion Venlafaxine HCl 150 mg 01/15/25 09:00 01/27/25 08:34 Venlafaxine Hcl Xr 75 Mg Cap.Er.24h PO 150 mg DAILY DOYLE Administration Radiology Results: ITS Impressions Chest/Abdomen/Pelvis CTA 01/14/25 08:21 IMPRESSION: 1. Normal caliber aorta with no dissection. No acute cardiopulmonary disease or acute intra-abdominal/pelvic process. 2. Diverticulosis. Abdomen X-Ray 01/16/25 13:09 Impression: 1. No acute abnormality. Chest X-Ray 01/25/25 12:42 IMPRESSION: 1. Interstitial opacities in both lungs. Differential includes interstitial edema, interstitial pneumonia or chronic interstitial changes. If symptoms persist or worsen, consider a short-term follow-up study or additional imaging for further assessment. Chest CT 01/27/25 21:25 IMPRESSION: 1. Patchy bilateral groundglass opacities have developed since prior study, compatible with pneumonia. 2: Small bilateral pleural effusions are new. Labs Labs: Laboratory Results - last 24 hr 01/27/25 01/27/25 01/27/25 07:28 11:11 16:14 POC Capillary Glucose 104 133 H 139 H 01/27/25 20:02 POC Capillary Glucose 181 H
[2025-01-28 07:18] LABS: Hematocrit 44.4 % (37.0-47.0); Hemoglobin 14.1 g/dL (12.0-15.0); Immature Granulocyte Percent A 1.3 % (0-0.5); Lymphocytes Absolute Auto 3.01 K/mm3 (0.9-3.2); Mean Corpuscular HGB Conc 31.8 g/dl (32-36); Mean Corpuscular Hemoglobin 30.3 pg (26-34); Mean Corpuscular Volume 95.5 fl (80-100); Nucleated Red Blood Cells Absolute Auto 0.000 K/mm3 (0.0-0.012); Nucleated Red Blood Cells Perc 0.0 % (0.0-0.2); Platelet Count Result 373 k/mm3 (150-375); Red Blood Count 4.65 M/mm3 (4.2-5.4); White Blood Count 13.2 K/mm3 (4.5-10.0)
[2025-01-28] MEDS: BUDESONIDE RESPULE NEB 0.5 MG/2 ML AMP INHALATION ×2 (07:36→20:33)
[2025-01-28 07:46] LABS: Alanine Aminotransferase 32 U/L (6-35); Albumin Level 3.2 g/dL (3.5-5.1); Alkaline Phosphatase 93 U/L (38-126); Anion Gap 5 mmol/L (4-12); Aspartate Amino Transferase 50 U/L (14-36); Bilirubin,Total 0.3 mg/dL (0.2-1.3); Blood Urea Nitrogen 29 mg/dL (7-17); Calcium 8.6 mg/dL (8.4-10.2); Carbon Dioxide 32 mmol/L (22-30); Chloride 101 mmol/L (98-107); Estimated CRCL calculation 33 ml/min; Estimated Glomerular Filt Rate 41; Glucose 67 mg/dL (65-110); Potassium 3.5 mmol/L (3.4-5.0); Sodium 138 mmol/L (137-145); Total Protein 6.3 g/dL (6.3-8.2)
--- NOTE | 2025-01-28 08:12 | PCSTNOTE ---
Please refer to the Bedside Swallow Evaluation in the EMR. Please note, silent aspiration cannot be ruled out at bedside. The patient is an 79 year old female admitted for acute congestive heart failure. Orders received to complete a BSE and r/o aspiration risk. The patient was positioned upright and presented the following consistencies: 5cc/tsp thin, thin liquid via straw, pudding/puree, and cracker/solid. Oral Mechanism Evaluation: WNL's lingual and labial ROM Oral Stage: Timely oral preparation and transit for all consistencies. Pharyngeal Stage: Timely swallow initiation for all consistencies without noted CSA. Recommend 1. Regular Diet consistency / Level 7 and Thin Liquid / Level 0 Thank you for the consult.
[2025-01-28] MEDS: APIXABAN 5 MG TABLET PO ×2 (09:28→22:15)
[2025-01-28] MEDS: METOPROLOL SUCCINATE EXT REL 12.5 MG TABCR PO (09:29)
[2025-01-28] MEDS: VENLAFAXINE HCL XR 75 MG CAP.ER.24H 150 MG PO (09:29)
[2025-01-28] MEDS: EMPAGLIFLOZIN 10 MG TABLET PO (09:29)
[2025-01-28] MEDS: guaiFENesin 12 HR 600 MG TABCR 1200 MG PO ×2 (09:29→22:15)
[2025-01-28] MEDS: CLOPIDOGREL BISULFATE 75 MG TABLET PO (09:29)
[2025-01-28] MEDS: FLUTICASONE PROPIONATE 0.05% NA SPR 16 GM BTL (*BKC) 1 SPRAY NASAL ×2 (09:30→22:25)
--- NOTE | 2025-01-28 10:11 | PCNWS ---
Weekly nutritional screen. Patient is tolerating current Diabetic consistent carb, heart healthy diet with adequate intake, 80-100%. No weight loss reported. No nutritional needs at this time.
--- NOTE | 2025-01-28 11:43 | PM.IMPN ---
Progress Note: A&P Assessment and Plan (1) ST elevation (STEMI) myocardial infarction: Code(s): I21.3 - ST elevation (STEMI) myocardial infarction of unspecified site Status: Acute (2) Acute systolic (congestive) heart failure: Code(s): I50.21 - Acute systolic (congestive) heart failure Status: Acute (3) Cough: Code(s): R05.9 - Cough, unspecified Status: Acute (4) Ischemic cardiomyopathy: Code(s): I25.5 - Ischemic cardiomyopathy Status: Acute (5) Paroxysmal atrial fibrillation: Code(s): I48.0 - Paroxysmal atrial fibrillation Status: Acute (6) Diabetes: Qualifiers: Diabetes mellitus complication status: without complication Diabetes mellitus mcfp insulin use: with long filler cigar roller machine use Diabetes mellitus type: type 2 Qualified Code(s): E11.9 - Type 2 diabetes mellitus without complications; Z79.4 - terminal operator (current) use of insulin Code(s): E11.9 - Type 2 diabetes mellitus without complications Status: Acute (7) Anxiety and depression: Code(s): F41.9 - Anxiety disorder, unspecified; F32.A - Depression, unspecified Status: Acute (8) Hyperlipidemia LDL goal <70: Code(s): E78.5 - Hyperlipidemia, unspecified Status: Acute Plan 79-year-old female presents the hospital on 01/14/2025 with complaints of chest pain. STEMI - She was found to have a ST-elevation myocardial infarction and was taken to the optical laboratory manager that day. She had a PCI to the LAD with 1 stent placed. Patient is allergic to aspirin. She was started on ticagrelor, carvedilol, lisinopril, rosuvastatin. On 01/15/2025 around noon the patient had increased ST elevation in leads V1 and V2, Dr. Rios was concerned about a possible aneurysm with plan to continue with current medical management at that time however if the patient complains of chest pain, has decreased oxygen saturations or decreasing her blood pressure, Dr. Rios to take her back to the optical laboratory manager. Continue aggressive medical management. Continue statin. Acute systolic CHF/ischemic CMP - Chest x-ray with the findings of CHF. Echo with severe cardiomyopathy with EF 20-25%. Patient started on diuresis with IV Lasix. Patient will need LifeVest. For ischemic cardiomyopathy she is on losartan. Blood pressure limiting up titration of these medications. Not tolerating Toprol and currently on hold. DNR code status and refuses LifeVest however now agreeable and had been fitted. Repeat TTE as outpatient basis. Cough/PNA - Repeat Chest x-ray showed findings of respiratory bronchiolitis and was treated with Rocephin/doxycycline/Ceftin. Sputum culture with Haemophilus influenzae. With penicillin allergy. prednisone 01/22/2025 and finished 5 days. Repeat check chest x-ray 01/25 with mild interstitial edema but CT chest showing bibasilar PNA. Bedside swallow okay. Viral studies ordered. ID consulted and Cefepime started. Repeat sputum Cx ordered. Repeat MRSA screen negative. AFib - Patient on anticoagulation for paroxysmal atrial fibrillation which will be continued. Patient intolerant to aspirin given facial swelling with potential compromise respiratory system and hence on Eliquis and Plavix. DM - Glucose reasonably well controlled. Takes Basaglar and linagliptin at home. Continue AccuCheks covering with sliding scale. Hypoglycemia protocol available as needed. Continue to monitor. Check A1c Depression/Anxiety - Mood stable. Continue Effexor. DVT profile: Apixaban Code status - DNR PT OT recommend home health which has been arranged with the help of care coordination. Called daughter per patient's wishes and hospital course and care plan discussed. Subjective Date/time seen: 01/28/25 11:43 Interval history: 79 year old female with past medical history of anxiety, depression, TIA, hypertension, acid reflux, diabetes and arthritis presented the ED on 01/14/2025 in the early hours with complains of chest pain. No change in her condition today. Cough is productive clear sputum. No chest pain or shortness of breath. She has been up walking in the halls. Exam Narrative: AF 97.0 101/63 87 18 98% ra Gen - NARD Chest -left basilar crackles. Prolonged expiratory phase but minimal wheeze now CV - RRR S1/S2 Abd - Soft, NT/ND, Positive BS Ext - No pedal edema Neuro - Alert and appropriate Psych - Nml mood and affect Skin - Warm and dry Objective Data Vital Signs Vital Signs: Vital Signs - 24 hr 01/27/25 12:00 01/27/25 14:00 01/27/25 14:47 Temperature 96.5 F L Pulse Rate 87 83 95 Respiratory Rate 18 20 Blood Pressure 101/57 L Pulse Oximetry 97 93 Oxygen Delivery Room Air Fraction of Inspired Oxygen 01/27/25 14:47 01/27/25 15:04 01/27/25 16:00 Temperature Pulse Rate 95 96 88 Respiratory Rate 20 20 Blood Pressure Pulse Oximetry Oxygen Delivery Fraction of Inspired Oxygen 01/27/25 19:52 01/27/25 19:55 01/27/25 19:56 Temperature 98.6 F Pulse Rate 89 89 89 Respiratory Rate 20 20 Blood Pressure 94/70 L Pulse Oximetry 93 93 Oxygen Delivery Room Air Fraction of Inspired Oxygen 01/27/25 20:00 01/27/25 20:05 01/27/25 21:23 Temperature Pulse Rate 80 92 Respiratory Rate 20 Blood Pressure Pulse Oximetry Oxygen Delivery Room Air Fraction of Inspired Oxygen 01/28/25 00:00 01/28/25 02:02 01/28/25 02:16 Temperature Pulse Rate 84 78 81 Respiratory Rate 20 20 Blood Pressure Pulse Oximetry Oxygen Delivery Fraction of Inspired Oxygen 01/28/25 04:00 01/28/25 06:00 01/28/25 07:37 Temperature 97 F L Pulse Rate 82 86 89 Respiratory Rate 20 18 Blood Pressure 105/56 L Pulse Oximetry 98 Oxygen Delivery Fraction of Inspired Oxygen 01/28/25 07:45 01/28/25 07:50 01/28/25 09:25 Temperature Pulse Rate 93 Respiratory Rate 18 Blood Pressure 101/63 Pulse Oximetry Oxygen Delivery Room Air Fraction of Inspired Oxygen 01/28/25 09:29 Temperature Pulse Rate 87 Respiratory Rate Blood Pressure Pulse Oximetry Oxygen Delivery Fraction of Inspired Oxygen Intake/Output Intake/Output: Intake & Output 01/25/25 01/26/25 01/27/25 01/28/25 23:59 23:59 23:59 23:59 Intake Total 1270 620 720 490 Balance 1270 620 720 490 Meds/Results Medications: Active Medications Generic Name Dose Route Start Last Admin Trade Name Freq PRN Reason Stop Dose Admin Acetaminophen 650 mg 01/21/25 16:22 01/21/25 16:49 Acetaminophen 325 Mg Tablet PO 650 mg Q6H PRN Administration Mild Pain (1-3) or Fever Apixaban 5 mg 01/15/25 10:55 01/28/25 09:28 Apixaban 5 Mg Tablet PO 5 mg Q12HR DOYLE Administration Benzonatate 100 mg 01/22/25 22:00 01/28/25 05:19 Benzonatate 100 Mg Capsule PO 100 mg Q8HR DOYLE Administration Budesonide 0.5 mg 01/20/25 09:50 01/28/25 07:36 Budesonide Respule Neb 0.5 Mg/2 Ml Amp INHALATION 0.5 mg Q12HRT DOYLE Administration Clopidogrel Bisulfate 75 mg 01/16/25 09:00 01/28/25 09:29 Clopidogrel Bisulfate 75 Mg Tablet PO 75 mg DAILY DOYLE Administration Dextrose 12.5 gm 01/14/25 08:08 Dextrose 50% 25 Gm/50 Ml Syringe IV PUSH PRN PRN Hypoglycemia Protocol Empagliflozin 10 mg 01/19/25 09:00 01/28/25 09:29 Empagliflozin 10 Mg Tablet PO 10 mg DAILY DOYLE Administration Fluticasone Propionate 1 spray 01/15/25 21:00 01/28/25 09:30 Fluticasone Propionate 0.05% Na Spr 16 Gm Btl (*Bkc) NASAL 1 spray Q12HR DOYLE Administration Glucagon 1 mg 01/14/25 08:08 Glucagon For Inj 1 Mg Vial IM PRN PRN Hypoglycemia Protocol Glucose 15 gm 01/14/25 08:08 Glucose Oral Gel 15 Gm Of Glucse In 37.5 Gm Tube PO PRN PRN Hypoglycemia Protocol Guaifenesin 1,200 mg 01/23/25 21:00 01/28/25 09:29 Guaifenesin 12 Hr 600 Mg Tabcr PO 1,200 mg Q12HR DOYLE Administration Guaifenesin/Dextromethorphan 10 ml 01/14/25 09:03 01/25/25 08:31 Guaifenesin/Dextromethorphan 10 Ml Udc PO 10 ml Q4H PRN Administration Cough Dextrose 1,000 mls @ 100 mls/hr 01/14/25 08:08 Dextrose 5% 1,000 Ml IVPB PRN PRN Hypoglycemia Protocol Insulin Aspart 2 - 4 units 01/14/25 21:00 01/27/25 20:39 Insulin Aspart (*Bkc) 100 Units/Ml SUB-Q Not Given HS [facility] Protocol Insulin Aspart 4 - 8 units 01/14/25 12:00 01/28/25 09:27 Insulin Aspart (*Bkc) 100 Units/Ml SUB-Q Not Given TIDWM [facility] Protocol Insulin Glargine 38 units 01/15/25 21:00 01/27/25 20:35 Insulin Glargine (*Bkc) 100 Units/Ml SUB-Q 38 units HS DOYLE Administration Ipratropium [place] 0.5 mg 01/21/25 20:00 01/28/25 07:34 Ipratropium Br 0.02% Inh Soln 0.5 Mg/2.5 Ml Vial INHALATION 0.5 mg Q6HRT DOYLE Administration Levalbuterol HCl 0.63 mg 01/21/25 20:00 01/28/25 07:34 Levalbuterol Neb 1.25 Mg/3 Ml INHALATION 0.63 mg Q6HRT DOYLE Administration Metoprolol Succinate 12.5 mg 01/23/25 09:00 01/28/25 09:29 Metoprolol Succinate Ext Rel 12.5 Mg Tabcr PO 12.5 mg QAM DOYLE Administration Ondansetron HCl 4 mg 01/14/25 09:03 01/16/25 12:27 Ondansetron Inj 4 Mg/2 Ml Vial IV PUSH 4 mg Q6H PRN Administration Nausea And Vomiting Rosuvastatin Calcium 20 mg 01/15/25 21:00 01/27/25 20:33 Rosuvastatin 20 Mg Tablet PO 20 mg QHS DOYLE Administration Sitagliptin Phosphate 50 mg 01/22/25 09:00 01/28/25 09:29 Sitagliptin Phosphate 50 Mg Tablet PO 50 mg QAM DOYLE Administration Sodium Chloride 1 spray 01/16/25 14:19 01/17/25 21:07 Saline 0.65% Frank Soln 44 Ml Btl NASAL 1 spray Q6HR PRN Administration Congestion Venlafaxine HCl 150 mg 01/15/25 09:00 01/28/25 09:29 Venlafaxine Hcl Xr 75 Mg Cap.Er.24h PO 150 mg DAILY DOYLE Administration Radiology Results: ITS Impressions Chest/Abdomen/Pelvis CTA 01/14/25 08:21 IMPRESSION: 1. Normal caliber aorta with no dissection. No acute cardiopulmonary disease or acute intra-abdominal/pelvic process. 2. Diverticulosis. Abdomen X-Ray 01/16/25 13:09 Impression: 1. No acute abnormality. Chest X-Ray 01/25/25 12:42 IMPRESSION: 1. Interstitial opacities in both lungs. Differential includes interstitial edema, interstitial pneumonia or chronic interstitial changes. If symptoms persist or worsen, consider a short-term follow-up study or additional imaging for further assessment. Chest CT 01/27/25 21:25 IMPRESSION: 1. Patchy bilateral groundglass opacities have developed since prior study, compatible with pneumonia. 2: Small bilateral pleural effusions are new. Labs Labs: Laboratory Results - last 24 hr 01/27/25 01/27/25 01/27/25 16:14 20:02 22:38 WBC RBC Hgb Hct MCV MCH MCHC RDW Plt Count MPV Immature Gran % (Auto) Neut % (Auto) Lymph % (Auto) Whitley % (Auto) Eos % (Auto) Baso % (Auto) Lymph # (Auto) Whitley # (Auto) Eos # (Auto) Baso # (Auto) Abs Immat Gran (auto) Absolute Neuts (auto) Absolute Nucleated RBC Nucleated RBC % Sodium Potassium Chloride Carbon Dioxide Anion Gap BUN Creatinine Estim Creat Clear Calc Estimated GFR Glucose POC Capillary Glucose 139 H 181 H Calcium Total Bilirubin AST ALT Alkaline Phosphatase Total Protein Albumin Nasal RSV Type A (PCR) Cancelled Nasal RSV Type B (PCR) Cancelled Chlamy pneumoniae PCR Cancelled Adenovirus DNA Cancelled Human Bocavirus (JASPAL) Cancelled Coronavirus Type OC43 Cancelled Coronavirus Type HKU1 Cancelled Coronavirus Type 229E Cancelled Coronavirus Type NL63 Cancelled Urine Histoplasma Ag Cancelled Human Metapneumovir PCR Cancelled Influenza A (PCR) Cancelled Influenza A (H1) RNA Cancelled Influenza A (H3) PCR Cancelled M. pneumoniae DNA Cancelled Parainfluenza PCR Cancelled Parainfluenza 2 (PCR) Cancelled Parainfluenza 3 RNA (PCR) Cancelled Parainfluenza 4 (PCR) Cancelled Rhino/Enterovirus (JASPAL) Cancelled SARS-CoV-2 RNA (RT-PCR) Cancelled Urine Pneumococcal Ag Cancelled Influenza Type B (PCR) Cancelled Misc Test Comment Cancelled 01/28/25 01/28/25 06:36 08:35 WBC 13.2 H RBC 4.65 Hgb 14.1 Hct 44.4 MCV 95.5 MCH 30.3 MCHC 31.8 L RDW 13.3 Plt Count 373 MPV 9.7 Immature Gran % (Auto) 1.3 H Neut % (Auto) 64.2 Lymph % (Auto) 22.8 Whitley % (Auto) 8.8 H Eos % (Auto) 2.5 Baso % (Auto) 0.4 Lymph # (Auto) 3.01 Whitley # (Auto) 1.2 H Eos # (Auto) 0.3 Baso # (Auto) 0.1 Abs Immat Gran (auto) 0.17 H Absolute Neuts (auto) 8.5 H Absolute Nucleated RBC 0.000 Nucleated RBC % 0.0 Sodium 138 Potassium 3.5 Chloride 101 Carbon Dioxide 32 H Anion Gap 5 BUN 29 H Creatinine 1.26 H Estim Creat Clear Calc 33 Estimated GFR 41 L Glucose 67 POC Capillary Glucose 129 H Calcium 8.6 Total Bilirubin 0.3 AST 50 H ALT 32 Alkaline Phosphatase 93 Total Protein 6.3 Albumin 3.2 L Nasal RSV Type A (PCR) Nasal RSV Type B (PCR) Chlamy pneumoniae PCR Adenovirus DNA Human Bocavirus (JASPAL) Coronavirus Type OC43 Coronavirus Type HKU1 Coronavirus Type 229E Coronavirus Type NL63 Urine Histoplasma Ag Human Metapneumovir PCR Influenza A (PCR) Influenza A (H1) RNA Influenza A (H3) PCR M. pneumoniae DNA Parainfluenza PCR Parainfluenza 2 (PCR) Parainfluenza 3 RNA (PCR) Parainfluenza 4 (PCR) Rhino/Enterovirus (JASPAL) SARS-CoV-2 RNA (RT-PCR) Urine Pneumococcal Ag Influenza Type B (PCR) Misc Test Comment
--- NOTE | 2025-01-28 12:49 | WPDIDCN ---
Assessment and Plan Assessment and plan (1) Ground glass opacity present on imaging of lung: Code(s): R91.8 - Other nonspecific abnormal finding of lung field Status: Acute Assessment and Plan: -Evolving HCAP vs. atypical pneumonia vs. pulmonary edema (2) ST elevation (STEMI) myocardial infarction: Code(s): I21.3 - ST elevation (STEMI) myocardial infarction of unspecified site Status: Acute Assessment and Plan: -No chest pain currently -Management as per Cardiology service (3) Ischemic cardiomyopathy: Code(s): I25.5 - Ischemic cardiomyopathy Status: Acute Assessment and Plan: -Management as per Cardiology service (4) HTN (hypertension): Code(s): I10 - Essential (primary) hypertension Status: Acute Assessment and Plan: -Management as per primary care service (5) Hyperlipidemia LDL goal <70: Code(s): E78.5 - Hyperlipidemia, unspecified Status: Acute (6) Diabetes: Qualifiers: Diabetes mellitus complication status: without complication Diabetes mellitus remote computer terminal operator insulin use: with [facility] use Diabetes mellitus type: type 2 Qualified Code(s): E11.9 - Type 2 diabetes mellitus without complications; Z79.4 - senior living (current) use of insulin Code(s): E11.9 - Type 2 diabetes mellitus without complications Status: Acute Assessment and Plan: -Management as per primary care service Plan -Obtain sputum culture, nasal MRSA PCR -Await respiratory PCR panel -Start Cefepime empirically for possible HCAP -Continue respiratory hygiene measures Antimicrobial plan of care discussed with patient. All questions answered. Patient was seen via video telehealth consultation with the assistance of staff. Chart, data, and patient independently reviewed. Patient was located at [facility] while I was located in my [place] office. Received verbal consent from patient. HPI Data of Consult Date/Time: 01/28/25 12:49 Requesting Physician: Jeronimo Mcduffie MD Primary Care Provider: Hellen Jarquin PA-C Consult Narrative Reason for consult: Pneumonia Narrative: Ailyn Neff is a 79 year old female admitted on 01/14/25 with shortness of breath and dyspnea. She has a history of ischemic cardiomyopathy and was diagnosed with STEMI and systolic heart failure exacerbation. She was noted to have a productive cough and 01/17/25 sputum culture grew Haemophilus parainfluenzae. She was treated with Doxycycline for H. parainflueanzae infection. However, her cough has persisted and now, it is worsening She was noted to have increasing shortness of breath and evidence of worsening ground glass opacities. Repeat COVID-19 testing and respiratory panel are pending. Review of Systems Review of Systems: All systems reviewed & are unremarkable except as noted in HPI and below PMFSH Past Medical History Medical History (Updated 01/28/25 @ 12:56 by Nirmal Izaguirre MD) Haemophilus infection Hypotension Anxiety and depression TIA (transient ischemic attack) 2012 HTN (hypertension) Hypomagnesemia Screening for colon cancer Mini stroke (~2012) Chronic headaches Acid reflux Diabetes Arthritis Surgical History Surgical History History of hand surgery trigger finger -right 3rd finger x3 History of bladder suspension procedure History of arthroscopy of left knee H/O: hysterectomy (~1979) Family History Family History Father Hypertension Mother Breast cancer Social History Social History Social History: Patient declined SDOH 02/12/24 Smoking status: Former smoker Tobacco type: cigarettes Additional smoking assessment comments: quit smoking about 40 years ago Alcohol intake: current Drinks per week: 1 Alcohol use details: OCC. Substance use: never Substance use type: does not use Do You Feel Safe in your Home?: Yes Lack of Transportation: No Lack of Food: Never True Current Housing: I Have Housing Concerned About Future Housing: No Difficulty Paying Gas/Electric Bills: No Difficulty Paying for Meds: No Currently Unemployed: No Education: High School Diploma/GED Difficulty w/ Childcare or Family Care: No Living arrangements: alone Occupation/Education: retired Gender identity (if verbalized by the patient): Female Spiritual care concerns: No Agree to blood products: Yes Meds Home Medications and Allergies Home Medications ?Medication ?Instructions ?Recorded ?Confirmed ?Type venlafaxine 150 mg 150 mg PO DAILY #90 caps 05/01/24 01/14/25 Rx capsule,extended release 24 hr acetaminophen 500 mg tablet 500 mg PO Q6H PRN fever or pain 07/03/24 01/14/25 History glucose 4 gram chewable tablet 16 g (4 x 4 gram) PO Q15M PRN 07/22/24 01/14/25 Rx (Dex4 Glucose) hypoglycemia #60 tabs pen needle, diabetic 32 gauge x #400 ea 07/22/24 01/14/25 Rx 5/32 (Chante Pen Needle) clopidogrel 75 mg tablet 75 mg PO DAILY #90 tabs 09/02/24 01/14/25 Rx OMEGA XL 1 cap PO DAILY 10/06/24 01/14/25 History glucagon 1 mg/0.2 mL subcutaneous 1 mg subcut ONCE PRN hypoglycemia 10/06/24 01/14/25 History auto-injector (Gvoke HypoPen 2-Pack) insulin glargine 100 unit/mL (3 50 unit subcut QPM 10/06/24 01/14/25 History mL) subcutaneous pen (Basaglar KwikPen U-100 Insulin) 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,swage toolsetter,cont #1 ea 10/26/24 01/14/25 Rx (FreeStyle [place] 3 [place]) magnesium oxide 400 mg (241.3 mg 400 mg PO DAILY #90 tabs 11/03/24 01/14/25 Rx magnesium) tablet pravastatin 40 mg tablet 40 mg PO DAILY #90 tabs 11/09/24 01/14/25 Rx ondansetron 4 mg disintegrating 4 mg PO Q8H PRN nausea and 12/28/24 01/14/25 Rx tablet vomiting #10 tabs linagliptin 5 mg tablet (Tradjenta) 5 mg PO QAM #90 tabs 01/12/25 01/14/25 Rx apixaban 5 mg tablet (Eliquis) 5 mg PO .q12 01/14/25 01/14/25 History Allergies Allergy/AdvReac Type Severity Reaction Status Date / Time Penicillins Allergy Mild Swelling Verified 01/20/25 13:04 pentazocine Allergy Mild Unknown Verified 12/22/24 14:39 albuterol Allergy syncope Verified 12/22/24 14:39 aspirin Allergy Swelling Verified 12/22/24 14:39 codeine Allergy Numbness Verified 12/22/24 14:39 Sulfa (Sulfonamide Allergy Unknown Verified 12/22/24 14:39 Antibiotics) ibuprofen AdvReac GI upset Verified 12/22/24 14:58 Vital Signs Vital Signs - 24 hr 01/27/25 14:00 01/27/25 14:47 01/27/25 14:47 Temperature 96.5 F L Pulse Rate 83 95 95 Respiratory Rate 18 20 20 Blood Pressure 101/57 L Pulse Oximetry 97 93 Oxygen Delivery Room Air Fraction of Inspired Oxygen 01/27/25 15:04 01/27/25 16:00 01/27/25 19:52 Temperature Pulse Rate 96 88 89 Respiratory Rate 20 20 Blood Pressure Pulse Oximetry Oxygen Delivery Fraction of Inspired Oxygen 01/27/25 19:55 01/27/25 19:56 01/27/25 20:00 Temperature 98.6 F Pulse Rate 89 89 80 Respiratory Rate 20 Blood Pressure 94/70 L Pulse Oximetry 93 93 Oxygen Delivery Room Air Fraction of Inspired Oxygen 01/27/25 20:05 01/27/25 21:23 01/28/25 00:00 Temperature Pulse Rate 92 84 Respiratory Rate 20 Blood Pressure Pulse Oximetry Oxygen Delivery Room Air Fraction of Inspired Oxygen 01/28/25 02:02 01/28/25 02:16 01/28/25 04:00 Temperature Pulse Rate 78 81 82 Respiratory Rate 20 20 Blood Pressure Pulse Oximetry Oxygen Delivery Fraction of Inspired Oxygen 01/28/25 06:00 01/28/25 07:37 01/28/25 07:45 Temperature 97 F L Pulse Rate 86 89 93 Respiratory Rate 20 18 18 Blood Pressure 105/56 L Pulse Oximetry 98 Oxygen Delivery Fraction of Inspired Oxygen 01/28/25 07:50 01/28/25 09:25 01/28/25 09:29 Temperature Pulse Rate 87 Respiratory Rate Blood Pressure 101/63 Pulse Oximetry Oxygen Delivery Room Air Fraction of Inspired Oxygen Exam Narrative: Gen: A&Ox3, NAD Pulm:normal chest expansion, +cough with mild conversational dyspnea Abd:obese Ext: trace edema Derm: no rash Results Labs 01/28/25 06:36 01/28/25 06:36 Labs: Short CBC 01/28/25 Range/Units 06:36 WBC 13.2 H (4.5-10.0) K/mm3 Hgb 14.1 (12.0-15.0) g/dL Hct 44.4 (37.0-47.0) % Plt Count 373 (150-375) k/mm3 BMP 01/28/25 06:36 Sodium 138 Potassium 3.5 Chloride 101 Carbon Dioxide 32 H BUN 29 H Creatinine 1.26 H Glucose 67 Calcium 8.6 Liver Function 01/28/ Range/Units 06:36 Total Bilirubin 0.3 (0.2-1.3) mg/dL AST 50 H (14-36) U/L ALT 32 (6-35) U/L Alkaline Phosphatase 93 (38-126) U/L Albumin 3.2 L (3.5-5.1) g/dL
[2025-01-28] MEDS: CEFEPIME 2 GM in SODIUM CHLORIDE 0.9% IV 50 ML 100 ML IVPB ×2 (14:39→22:14)
[2025-01-28 15:40] LABS: MRSA (PCR) NOT DETECTED (NOT DETECTE)
[2025-01-28] MEDS: ROSUVASTATIN 20 MG TABLET PO (22:15)
[2025-01-28] MEDS: INSULIN GLARGINE (*BKC) 100 UNITS/ML 38 UNITS SUB-Q (22:23)
[2025-01-29] VITALS (15 sets, daily range): BP systolic 96–120; BP diastolic 51–70; PULSE 51–97; RESP 16–20; TEMP 36.3–36.9; O2SAT 91–97
[2025-01-29] MEDS: IPRATROPIUM BR 0.02% INH SOLN 0.5 MG/2.5 ML VIAL INHALATION ×4 (02:29→19:53)
[2025-01-29] MEDS: BENZONATATE 100 MG CAPSULE PO ×3 (05:20→21:05)
[2025-01-29 05:32] LABS: Hematocrit 44.5 % (37.0-47.0); Hemoglobin 14.2 g/dL (12.0-15.0); Immature Granulocyte Percent A 1.2 % (0-0.5); Lymphocytes Absolute Auto 2.26 K/mm3 (0.9-3.2); Mean Corpuscular HGB Conc 31.9 g/dl (32-36); Mean Corpuscular Hemoglobin 30.7 pg (26-34); Mean Corpuscular Volume 96.1 fl (80-100); Nucleated Red Blood Cells Absolute Auto 0.000 K/mm3 (0.0-0.012); Nucleated Red Blood Cells Perc 0.0 % (0.0-0.2); Platelet Count Result 343 k/mm3 (150-375); Red Blood Count 4.63 M/mm3 (4.2-5.4); White Blood Count 13.1 K/mm3 (4.5-10.0)
[2025-01-29 05:39] LABS: Hemoglobin A1C 10.3 % (<5.7)
[2025-01-29 05:57] LABS: Alanine Aminotransferase 26 U/L (6-35); Albumin Level 3.2 g/dL (3.5-5.1); Alkaline Phosphatase 85 U/L (38-126); Anion Gap 5 mmol/L (4-12); Aspartate Amino Transferase 43 U/L (14-36); Bilirubin,Total 0.5 mg/dL (0.2-1.3); Blood Urea Nitrogen 21 mg/dL (7-17); Calcium 8.5 mg/dL (8.4-10.2); Carbon Dioxide 29 mmol/L (22-30); Chloride 104 mmol/L (98-107); Estimated CRCL calculation 38 ml/min; Estimated Glomerular Filt Rate 49; Glucose 85 mg/dL (65-110); Magnesium 1.9 mg/dL (1.6-2.3); Potassium 3.8 mmol/L (3.4-5.0); Sodium 138 mmol/L (137-145); Total Protein 6.1 g/dL (6.3-8.2)
[2025-01-29 06:07] LABS: NT Pro B Type Natriuretic Pept 5790 pg/mL (19.9-100)
--- NOTE | 2025-01-29 06:33 | P.PNCA_ITS ---
Progress Note: A&P Assessment and Plan (1) ST elevation (STEMI) myocardial infarction: Code(s): I21.3 - ST elevation (STEMI) myocardial infarction of unspecified site Status: Acute (2) Ischemic cardiomyopathy: Code(s): I25.5 - Ischemic cardiomyopathy Status: Acute Plan 79-year-old female with: -Anterior STEMI status post PCI to mid LAD -Aspirin allergy -Acute systolic heart failure with LVEF of 20-25% secondary to AMI -Paroxysmal atrial fibrillation on chronic anticoagulation with Eliquis -Hypotension-SBP in the 90s to 120s range Plan: She has aspirin allergy. Continue Plavix and apixaban the setting of recent PCI to mid LAD Consider aspirin desensitization as outpatient Continuos rosuvastatin 20 mg p.o. daily Guideline directed medical therapy for systolic heart failure as blood pressure allows. Continue metoprolol 12.5 mg p.o. daily and empagliflozin 10 mg p.o. daily. Stopped losartan due to cough Repeat TTE 40 days post revascularization. If LVEF remains less than 35% she will need EP consultation for ICD. She has lifevest for dc Subjective Date/time seen: 01/29/25 06:33 Interval history: Reason for encounter: STEMI status post PCI to mid LAD, ischemic cardiomyopathy Interval history: Patient reports decreased cough this morning she states the VT she sees her helping her cough. No chest pain, dizziness, lightheadedness, palpitations, shortness of breath. I stopped losartan yesterday to see if this helps resolve cough. Review of Systems Review of Systems: All systems reviewed & are unremarkable except as noted in HPI and below Exam Narrative: General: Alert oriented x3, no acute distress, coughing intermittently Neck: Supple, no JVD Chest: Bilaterally coarse, no rhonchi Cardiac: S1, S2 +, regular rate, regular rhythm, no murmurs or rubs Extremities: No pedal edema, no skin rash Neurologic: Alert and oriented x3, no focal neurological deficits Objective Data Vital Signs Vital Signs: Vital Signs - 24 hr 01/28/25 07:37 01/28/25 07:45 01/28/25 07:50 Temperature Pulse Rate 89 93 Respiratory Rate 18 18 Blood Pressure Pulse Oximetry Oxygen Delivery Room Air 01/28/25 08:00 01/28/25 09:25 01/28/25 09:29 Temperature Pulse Rate 89 87 Respiratory Rate Blood Pressure 101/63 Pulse Oximetry Oxygen Delivery 01/28/25 12:00 01/28/25 14:10 01/28/25 14:10 Temperature Pulse Rate 85 79 79 Respiratory Rate 20 20 Blood Pressure Pulse Oximetry 92 Oxygen Delivery Room Air 01/28/25 14:21 01/28/25 15:54 01/28/25 16:00 Temperature 37.4 C Pulse Rate 82 91 88 Respiratory Rate 20 20 Blood Pressure 116/60 Pulse Oximetry 94 Oxygen Delivery 01/28/25 20:30 01/28/25 20:38 01/28/25 20:39 Temperature 35.9 C L Pulse Rate 80 80 Respiratory Rate 16 20 Blood Pressure 113/68 Pulse Oximetry 95 95 Oxygen Delivery Room Air 01/28/25 20:55 01/29/25 02:30 01/29/25 05:00 Temperature 36.3 C L Pulse Rate 77 83 87 Respiratory Rate 20 20 16 Blood Pressure 120/70 Pulse Oximetry 95 Oxygen Delivery Intake/Output Intake/Output: Intake & Output 01/26/25 01/27/25 01/28/25 01/29/25 23:59 23:59 23:59 23:59 Intake Total 929 404 9368 530 Balance 068 261 0782 530 Meds/Results Medications: Active Medications Generic Name Dose Route Start Last Admin Trade Name Freq PRN Reason Stop Dose Admin Acetaminophen 650 mg 01/21/25 16:22 01/21/25 16:49 Acetaminophen 325 Mg Tablet PO 650 mg Q6H PRN Administration Mild Pain (1-3) or Fever Apixaban 5 mg 01/15/25 10:55 01/28/25 22:15 Apixaban 5 Mg Tablet PO 5 mg Q12HR DOYLE Administration Benzonatate 100 mg 01/22/25 22:00 01/29/25 05:20 Benzonatate 100 Mg Capsule PO 100 mg Q8HR ODYLE Administration Budesonide 0.5 mg 01/20/25 09:50 01/28/25 20:33 Budesonide Respule Neb 0.5 Mg/2 Ml Amp INHALATION 0.5 mg Q12HRT DOYLE Administration Clopidogrel Bisulfate 75 mg 01/16/25 09:00 01/28/25 09:29 Clopidogrel Bisulfate 75 Mg Tablet PO 75 mg DAILY DOYLE Administration Dextrose 12.5 gm 01/14/25 08:08 Dextrose 50% 25 Gm/50 Ml Syringe IV PUSH PRN PRN Hypoglycemia Protocol Empagliflozin 10 mg 01/19/25 09:00 01/28/25 09:29 Empagliflozin 10 Mg Tablet PO 10 mg DAILY DOYLE Administration Fluticasone Propionate 1 spray 01/15/25 21:00 01/28/25 22:25 Fluticasone Propionate 0.05% Na Spr 16 Gm Btl (*Bkc) NASAL 1 spray Q12HR DOYLE Administration Glucagon 1 mg 01/14/25 08:08 Glucagon For Inj 1 Mg Vial IM PRN PRN Hypoglycemia Protocol Glucose 15 gm 01/14/25 08:08 Glucose Oral Gel 15 Gm Of Glucse In 37.5 Gm Tube PO PRN PRN Hypoglycemia Protocol Guaifenesin 1,200 mg 01/23/25 21:00 01/28/25 22:15 Guaifenesin 12 Hr 600 Mg Tabcr PO 1,200 mg Q12HR DOYLE Administration Guaifenesin/Dextromethorphan 10 ml 01/14/25 09:03 01/25/25 08:31 Guaifenesin/Dextromethorphan 10 Ml Udc PO 10 ml Q4H PRN Administration Cough Dextrose 1,000 mls @ 100 mls/hr 01/14/25 08:08 Dextrose 5% 1,000 Ml IVPB PRN PRN Hypoglycemia Protocol Cefepime HCl 2 gm/ Sodium 50 mls @ 100 mls/hr 01/28/25 13:05 01/28/25 22:14 Chloride IVPB 100 mls/hr Q12HR DOYLE Administration Insulin Aspart 2 - 4 units 01/14/25 21:00 01/28/25 22:29 Insulin Aspart (*Bkc) 100 Units/Ml SUB-Q Not Given HS DOYLE Protocol Insulin Aspart 4 - 8 units 01/14/25 12:00 01/28/25 17:17 Insulin Aspart (*Bkc) 100 Units/Ml SUB-Q Not Given [facility] Protocol Insulin Glargine 38 units 01/15/25 21:00 01/28/25 22:23 Insulin Glargine (*Bkc) 100 Units/Ml SUB-Q 38 units HS DOYLE Administration Ipratropium [place] 0.5 mg 01/21/25 20:00 01/29/25 02:29 Ipratropium Br 0.02% Inh Soln 0.5 Mg/2.5 Ml Vial INHALATION 0.5 mg Q6HRT DOYLE Administration Levalbuterol HCl 0.63 mg 01/21/25 20:00 01/29/25 02:29 Levalbuterol Neb 1.25 Mg/3 Ml INHALATION 0.63 mg Q6HRT DOYLE Administration Metoprolol Succinate 12.5 mg 01/23/25 09:00 01/28/25 09:29 Metoprolol Succinate Ext Rel 12.5 Mg Tabcr PO 12.5 mg QAM DOYLE Administration Ondansetron HCl 4 mg 01/14/25 09:03 01/16/25 12:27 Ondansetron Inj 4 Mg/2 Ml Vial IV PUSH 4 mg Q6H PRN Administration Nausea And Vomiting Rosuvastatin Calcium 20 mg 01/15/25 21:00 01/28/25 22:15 Rosuvastatin 20 Mg Tablet PO 20 mg QHS DOYLE Administration Sitagliptin Phosphate 50 mg 01/22/25 09:00 01/28/25 09:29 Sitagliptin Phosphate 50 Mg Tablet PO 50 mg QAM DOYLE Administration Sodium Chloride 1 spray 01/16/25 14:19 01/17/25 21:07 Saline 0.65% Frank Soln 44 Ml Btl NASAL 1 spray Q6HR PRN Administration Congestion Venlafaxine HCl 150 mg 01/15/25 09:00 01/28/25 09:29 Venlafaxine Hcl Xr 75 Mg Cap.Er.24h PO 150 mg DAILY DOYLE Administration Radiology Results: ITS Impressions Chest/Abdomen/Pelvis CTA 01/14/25 08:21 IMPRESSION: 1. Normal caliber aorta with no dissection. No acute cardiopulmonary disease or acute intra-abdominal/pelvic process. 2. Diverticulosis. Abdomen X-Ray 01/16/25 13:09 Impression: 1. No acute abnormality. Chest X-Ray 01/25/25 12:42 IMPRESSION: 1. Interstitial opacities in both lungs. Differential includes interstitial edema, interstitial pneumonia or chronic interstitial changes. If symptoms persist or worsen, consider a short-term follow-up study or additional imaging for further assessment. Chest CT 01/27/25 21:25 IMPRESSION: 1. Patchy bilateral groundglass opacities have developed since prior study, compatible with pneumonia. 2: Small bilateral pleural effusions are new. Labs Labs: Laboratory Results - last 24 hr 01/27/25 01/28/25 01/28/25 22:38 06:36 08:35 WBC 13.2 H RBC 4.65 Hgb 14.1 Hct 44.4 MCV 95.5 MCH 30.3 MCHC 31.8 L RDW 13.3 Plt Count 373 MPV 9.7 Immature Gran % (Auto) 1.3 H Neut % (Auto) 64.2 Lymph % (Auto) 22.8 [place] % (Auto) 8.8 H Eos % (Auto) 2.5 Baso % (Auto) 0.4 Lymph # (Auto) 3.01 [place] # (Auto) 1.2 H Eos # (Auto) 0.3 Baso # (Auto) 0.1 Abs Immat Gran (auto) 0.17 H Absolute Neuts (auto) 8.5 H Absolute Nucleated RBC 0.000 Nucleated RBC % 0.0 Sodium 138 Potassium 3.5 Chloride 101 Carbon Dioxide 32 H Anion Gap 5 BUN 29 H Creatinine 1.26 H Estim Creat Clear Calc 33 Estimated GFR 41 L Glucose 67 POC Capillary Glucose 129 H Hemoglobin A1c Calcium 8.6 Magnesium Total Bilirubin 0.3 AST 50 H ALT 32 Alkaline Phosphatase 93 NT-Pro-B Natriuret Pep Total Protein 6.3 Albumin 3.2 L Nasal MRSA (PCR) Nasal RSV Type A (PCR) Cancelled Nasal RSV Type B (PCR) Cancelled Chlamy pneumoniae PCR Cancelled Adenovirus DNA Cancelled Human Bocavirus (JASPAL) Cancelled Coronavirus Type OC43 Cancelled Coronavirus Type HKU1 Cancelled Coronavirus Type 229E Cancelled Coronavirus Type NL63 Cancelled Urine Histoplasma Ag Cancelled Human Metapneumovir PCR Cancelled Influenza A (PCR) Cancelled Influenza A (H1) RNA Cancelled Influenza A (H3) PCR Cancelled M. pneumoniae DNA Cancelled Parainfluenza PCR Cancelled Parainfluenza 2 (PCR) Cancelled Parainfluenza 3 RNA (PCR) Cancelled Parainfluenza 4 (PCR) Cancelled Rhino/Enterovirus (JASPAL) Cancelled SARS-CoV-2 RNA (RT-PCR) Cancelled Urine Pneumococcal Ag Cancelled Influenza Type B (PCR) Cancelled Misc Test Comment Cancelled 01/28/25 01/28/25 01/28/25 12:17 14:15 16:46 WBC RBC Hgb Hct MCV MCH MCHC RDW Plt Count MPV Immature Gran % (Auto) Neut % (Auto) Lymph % (Auto) [place] % (Auto) Eos % (Auto) Baso % (Auto) Lymph # (Auto) [place] # (Auto) Eos # (Auto) Baso # (Auto) Abs Immat Gran (auto) Absolute Neuts (auto) Absolute Nucleated RBC Nucleated RBC % Sodium Potassium Chloride Carbon Dioxide Anion Gap BUN Creatinine Estim Creat Clear Calc Estimated GFR Glucose POC Capillary Glucose 146 H 158 H Hemoglobin A1c Calcium Magnesium Total Bilirubin AST ALT Alkaline Phosphatase NT-Pro-B Natriuret Pep Total Protein Albumin Nasal MRSA (PCR) Not detected Nasal RSV Type A (PCR) Nasal RSV Type B (PCR) Chlamy pneumoniae PCR Adenovirus DNA Human Bocavirus (JASPAL) Coronavirus Type OC43 Coronavirus Type HKU1 Coronavirus Type 229E Coronavirus Type NL63 Urine Histoplasma Ag Human Metapneumovir PCR Influenza A (PCR) Influenza A (H1) RNA Influenza A (H3) PCR M. pneumoniae DNA Parainfluenza PCR Parainfluenza 2 (PCR) Parainfluenza 3 RNA (PCR) Parainfluenza 4 (PCR) Rhino/Enterovirus (JASPAL) SARS-CoV-2 RNA (RT-PCR) Urine Pneumococcal Ag Influenza Type B (PCR) Misc Test Comment 01/28/25 01/29/25 20:36 05:09 WBC 13.1 H RBC 4.63 Hgb 14.2 Hct 44.5 MCV 96.1 MCH 30.7 MCHC 31.9 L RDW 13.2 Plt Count 343 MPV 9.5 Immature Gran % (Auto) 1.2 H Neut % (Auto) 69.5 Lymph % (Auto) 17.3 L [place] % (Auto) 9.2 H Eos % (Auto) 2.4 Baso % (Auto) 0.4 Lymph # (Auto) 2.26 [place] # (Auto) 1.2 H Eos # (Auto) 0.3 Baso # (Auto) 0.1 Abs Immat Gran (auto) 0.16 H Absolute Neuts (auto) 9.1 H Absolute Nucleated RBC 0.000 Nucleated RBC % 0.0 Sodium 138 Potassium 3.8 Chloride 104 Carbon Dioxide 29 Anion Gap 5 BUN 21 H Creatinine 1.08 H Estim Creat Clear Calc 38 Estimated GFR 49 L Glucose 85 POC Capillary Glucose 199 H Hemoglobin A1c 10.3 H Calcium 8.5 Magnesium 1.9 Total Bilirubin 0.5 AST 43 H ALT 26 Alkaline Phosphatase 85 NT-Pro-B Natriuret Pep 5790 H Total Protein 6.1 L Albumin 3.2 L Nasal MRSA (PCR) Nasal RSV Type A (PCR) Nasal RSV Type B (PCR) Chlamy pneumoniae PCR Adenovirus DNA Human Bocavirus (JASPAL) Coronavirus Type OC43 Coronavirus Type HKU1 Coronavirus Type 229E Coronavirus Type NL63 Urine Histoplasma Ag Human Metapneumovir PCR Influenza A (PCR) Influenza A (H1) RNA Influenza A (H3) PCR M. pneumoniae DNA Parainfluenza PCR Parainfluenza 2 (PCR) Parainfluenza 3 RNA (PCR) Parainfluenza 4 (PCR) Rhino/Enterovirus (JASPAL) SARS-CoV-2 RNA (RT-PCR) Urine Pneumococcal Ag Influenza Type B (PCR) Misc Test Comment
[2025-01-29] MEDS: BUDESONIDE RESPULE NEB 0.5 MG/2 ML AMP INHALATION (07:19)
[2025-01-29] MEDS: EMPAGLIFLOZIN 10 MG TABLET PO (08:38)
[2025-01-29] MEDS: CLOPIDOGREL BISULFATE 75 MG TABLET PO (08:38)
[2025-01-29] MEDS: VENLAFAXINE HCL XR 75 MG CAP.ER.24H 150 MG PO (08:38)
[2025-01-29] MEDS: METOPROLOL SUCCINATE EXT REL 12.5 MG TABCR PO (08:39)
[2025-01-29] MEDS: guaiFENesin 12 HR 600 MG TABCR 1200 MG PO ×2 (08:40→20:38)
[2025-01-29] MEDS: CEFEPIME 2 GM in SODIUM CHLORIDE 0.9% IV 50 ML 100 ML IVPB ×2 (08:41→20:39)
[2025-01-29] MEDS: FLUTICASONE PROPIONATE 0.05% NA SPR 16 GM BTL (*BKC) 1 SPRAY NASAL ×2 (08:41→20:44)
[2025-01-29] MEDS: APIXABAN 5 MG TABLET PO ×2 (08:41→20:38)
--- NOTE | 2025-01-29 12:16 | WPDINFPN2 ---
Progress Note: A&P Assessment and Plan (1) Ground glass opacity present on imaging of lung: Code(s): R91.8 - Other nonspecific abnormal finding of lung field Status: Acute Assessment and Plan: -Evolving HCAP vs. atypical pneumonia vs. pulmonary edema -Nasal MRSA PCR negative (2) Acute systolic (congestive) heart failure: Code(s): I50.21 - Acute systolic (congestive) heart failure Status: Acute Assessment and Plan: -Management as per cardiology service (3) Ischemic cardiomyopathy: Code(s): I25.5 - Ischemic cardiomyopathy Status: Acute Assessment and Plan: -Management as per cardiology service (4) Cough: Code(s): R05.9 - Cough, unspecified Status: Acute Assessment and Plan: -Likely due to pneumonia and some element of fluid overload (5) ST elevation (STEMI) myocardial infarction: Code(s): I21.3 - ST elevation (STEMI) myocardial infarction of unspecified site Status: Acute Assessment and Plan: -STEMI on admission -Management as per Cardiology service Plan -Await respiratory PCR panel -Await urine Pneumococcus/Legionella antigens -Continue Cefepime day 2 empirically for possible HCAP -Continue respiratory hygiene measures Antimicrobial plan of care discussed with patient. All questions answered. Patient was seen via video telehealth consultation with the assistance of staff. Chart, data, and patient independently reviewed. Patient was located at [facility] while I was located in my [place] office. Received verbal consent from patient. Subjective Date/time seen: 01/29/25 12:16 Interval history: Patient afebrile. She reports feeling better today. Cough has improved. She is in better spirits today. Review of Systems Review of Systems: All systems reviewed & are unremarkable except as noted in HPI and below Exam Narrative: Gen: A&Ox3, NAD Pulm:normal chest expansion, +cough with mild conversational dyspnea Abd:obese Ext: trace edema Derm: no rash Objective Data Vital Signs Vital Signs: Vital Signs - 24 hr 01/28/25 14:10 01/28/25 14:10 01/28/25 14:21 Temperature Pulse Rate 79 79 82 Respiratory Rate 20 20 20 Blood Pressure Pulse Oximetry 92 Oxygen Delivery Room Air 01/28/25 15:54 01/28/25 16:00 01/28/25 20:30 Temperature 99.3 F 96.6 F L Pulse Rate 91 88 80 Respiratory Rate 20 16 Blood Pressure 116/60 113/68 Pulse Oximetry 94 95 Oxygen Delivery 01/28/25 20:38 01/28/25 20:39 01/28/25 20:55 Temperature Pulse Rate 80 77 Respiratory Rate 20 20 Blood Pressure Pulse Oximetry 95 Oxygen Delivery Room Air 01/29/25 02:30 01/29/25 05:00 01/29/25 07:20 Temperature 97.4 F L Pulse Rate 83 87 Respiratory Rate 20 16 Blood Pressure 120/70 Pulse Oximetry 95 97 Oxygen Delivery Room Air 01/29/25 07:20 01/29/25 07:34 01/29/25 08:00 Temperature Pulse Rate 78 83 86 Respiratory Rate 20 20 Blood Pressure Pulse Oximetry Oxygen Delivery 01/29/25 08:39 01/29/25 08:40 01/29/25 12:00 Temperature Pulse Rate 88 84 Respiratory Rate Blood Pressure Pulse Oximetry Oxygen Delivery Room Air Intake/Output Intake/Output: Intake & Output 01/26/25 01/27/25 01/28/25 01/29/25 23:59 23:59 23:59 23:59 Intake Total 125 827 9472 1380 Balance 400 737 2233 1380 Meds/Results Medications: Active Medications Generic Name Dose Route Start Last Admin Trade Name Freq PRN Reason Stop Dose Admin Acetaminophen 650 mg 01/21/25 16:22 01/21/25 16:49 Acetaminophen 325 Mg Tablet PO 650 mg Q6H PRN Administration Mild Pain (1-3) or Fever Apixaban 5 mg 01/15/25 10:55 01/29/25 08:41 Apixaban 5 Mg Tablet PO 5 mg Q12HR DOYLE Administration Benzonatate 100 mg 01/22/25 22:00 01/29/25 05:20 Benzonatate 100 Mg Capsule PO 100 mg Q8HR DOYLE Administration Budesonide 0.5 mg 01/20/25 09:50 01/29/25 07:19 Budesonide Respule Neb 0.5 Mg/2 Ml Amp INHALATION 0.5 mg Q12HRT DOYLE Administration Clopidogrel Bisulfate 75 mg 01/16/25 09:00 01/29/25 08:38 Clopidogrel Bisulfate 75 Mg Tablet PO 75 mg DAILY DOYLE Administration Dextrose 12.5 gm 01/14/25 08:08 Dextrose 50% 25 Gm/50 Ml Syringe IV PUSH PRN PRN Hypoglycemia Protocol Empagliflozin 10 mg 01/19/25 09:00 01/29/25 08:38 Empagliflozin 10 Mg Tablet PO 10 mg DAILY DOYLE Administration Fluticasone Propionate 1 spray 01/15/25 21:00 01/29/25 08:41 Fluticasone Propionate 0.05% Na Spr 16 Gm Btl (*Bkc) NASAL 1 spray Q12HR DOYLE Administration Glucagon 1 mg 01/14/25 08:08 Glucagon For Inj 1 Mg Vial IM PRN PRN Hypoglycemia Protocol Glucose 15 gm 01/14/25 08:08 Glucose Oral Gel 15 Gm Of Glucse In 37.5 Gm Tube PO PRN PRN Hypoglycemia Protocol Guaifenesin 1,200 mg 01/23/25 21:00 01/29/25 08:40 Guaifenesin 12 Hr 600 Mg Tabcr PO 1,200 mg Q12HR DOYLE Administration Guaifenesin/Dextromethorphan 10 ml 01/14/25 09:03 01/25/25 08:31 Guaifenesin/Dextromethorphan 10 Ml Udc PO 10 ml Q4H PRN Administration Cough Dextrose 1,000 mls @ 100 mls/hr 01/14/25 08:08 Dextrose 5% 1,000 Ml IVPB PRN PRN Hypoglycemia Protocol Cefepime HCl 2 gm/ Sodium 50 mls @ 100 mls/hr 01/28/25 13:05 01/29/25 09:11 Chloride IVPB Infused Q12HR DOYLE Infusion Insulin Aspart 2 - 4 units 01/14/25 21:00 01/28/25 22:29 Insulin Aspart (*Bkc) 100 Units/Ml SUB-Q Not Given HS [facility] Protocol Insulin Aspart 4 - 8 units 01/14/25 12:00 01/29/25 08:38 Insulin Aspart (*Bkc) 100 Units/Ml SUB-Q Not Given TIDWM [facility] Protocol Insulin Glargine 38 units 01/15/25 21:00 01/28/25 22:23 Insulin Glargine (*Bkc) 100 Units/Ml SUB-Q 38 units HS DOYLE Administration Ipratropium [place] 0.5 mg 01/21/25 20:00 01/29/25 07:19 Ipratropium Br 0.02% Inh Soln 0.5 Mg/2.5 Ml Vial INHALATION 0.5 mg Q6HRT DOYLE Administration Levalbuterol HCl 0.63 mg 01/21/25 20:00 01/29/25 07:19 Levalbuterol Neb 1.25 Mg/3 Ml INHALATION 0.63 mg Q6HRT DOYLE Administration Metoprolol Succinate 12.5 mg 01/23/25 09:00 01/29/25 08:39 Metoprolol Succinate Ext Rel 12.5 Mg Tabcr PO 12.5 mg QAM DOYLE Administration Ondansetron HCl 4 mg 01/14/25 09:03 01/16/25 12:27 Ondansetron Inj 4 Mg/2 Ml Vial IV PUSH 4 mg Q6H PRN Administration Nausea And Vomiting Rosuvastatin Calcium 20 mg 01/15/25 21:00 01/28/25 22:15 Rosuvastatin 20 Mg Tablet PO 20 mg QHS DOYLE Administration Sitagliptin Phosphate 50 mg 01/22/25 09:00 01/29/25 08:40 Sitagliptin Phosphate 50 Mg Tablet PO 50 mg QAM DOYLE Administration Sodium Chloride 1 spray 01/16/25 14:19 01/17/25 21:07 Saline 0.65% Frank Soln 44 Ml Btl NASAL 1 spray Q6HR PRN Administration Congestion Venlafaxine HCl 150 mg 01/15/25 09:00 01/29/25 08:38 Venlafaxine Hcl Xr 75 Mg Cap.Er.24h PO 150 mg DAILY DOYLE Administration Radiology Results: ITS Impressions Chest/Abdomen/Pelvis CTA 01/14/25 08:21 IMPRESSION: 1. Normal caliber aorta with no dissection. No acute cardiopulmonary disease or acute intra-abdominal/pelvic process. 2. Diverticulosis. Abdomen X-Ray 01/16/25 13:09 Impression: 1. No acute abnormality. Chest X-Ray 01/25/25 12:42 IMPRESSION: 1. Interstitial opacities in both lungs. Differential includes interstitial edema, interstitial pneumonia or chronic interstitial changes. If symptoms persist or worsen, consider a short-term follow-up study or additional imaging for further assessment. Chest CT 01/27/25 21:25 IMPRESSION: 1. Patchy bilateral groundglass opacities have developed since prior study, compatible with pneumonia. 2: Small bilateral pleural effusions are new. Labs Labs: Laboratory Results - last 24 hr 01/28/25 01/28/25 01/28/25 12:17 14:15 16:46 WBC RBC Hgb Hct MCV MCH MCHC RDW Plt Count MPV Immature Gran % (Auto) Neut % (Auto) Lymph % (Auto) [place] % (Auto) Eos % (Auto) Baso % (Auto) Lymph # (Auto) [place] # (Auto) Eos # (Auto) Baso # (Auto) Abs Immat Gran (auto) Absolute Neuts (auto) Absolute Nucleated RBC Nucleated RBC % Sodium Potassium Chloride Carbon Dioxide Anion Gap BUN Creatinine Estim Creat Clear Calc Estimated GFR Glucose POC Capillary Glucose 146 H 158 H Hemoglobin A1c Calcium Magnesium Total Bilirubin AST ALT Alkaline Phosphatase NT-Pro-B Natriuret Pep Total Protein Albumin Nasal MRSA (PCR) Not detected 01/28/25 01/29/25 01/29/25 20:36 05:09 07:52 WBC 13.1 H RBC 4.63 Hgb 14.2 Hct 44.5 MCV 96.1 MCH 30.7 MCHC 31.9 L RDW 13.2 Plt Count 343 MPV 9.5 Immature Gran % (Auto) 1.2 H Neut % (Auto) 69.5 Lymph % (Auto) 17.3 L [place] % (Auto) 9.2 H Eos % (Auto) 2.4 Baso % (Auto) 0.4 Lymph # (Auto) 2.26 [place] # (Auto) 1.2 H Eos # (Auto) 0.3 Baso # (Auto) 0.1 Abs Immat Gran (auto) 0.16 H Absolute Neuts (auto) 9.1 H Absolute Nucleated RBC 0.000 Nucleated RBC % 0.0 Sodium 138 Potassium 3.8 Chloride 104 Carbon Dioxide 29 Anion Gap 5 BUN 21 H Creatinine 1.08 H Estim Creat Clear Calc 38 Estimated GFR 49 L Glucose 85 POC Capillary Glucose 199 H 85 Hemoglobin A1c 10.3 H Calcium 8.5 Magnesium 1.9 Total Bilirubin 0.5 AST 43 H ALT 26 Alkaline Phosphatase 85 NT-Pro-B Natriuret Pep 5790 H Total Protein 6.1 L Albumin 3.2 L Nasal MRSA (PCR)
--- NOTE | 2025-01-29 13:49 | P.PNIM_ITS ---
Progress Note: A&P Assessment and Plan (1) ST elevation (STEMI) myocardial infarction: Code(s): I21.3 - ST elevation (STEMI) myocardial infarction of unspecified site Status: Acute (2) Acute systolic (congestive) heart failure: Code(s): I50.21 - Acute systolic (congestive) heart failure Status: Acute (3) Cough: Code(s): R05.9 - Cough, unspecified Status: Acute (4) Ischemic cardiomyopathy: Code(s): I25.5 - Ischemic cardiomyopathy Status: Acute (5) Paroxysmal atrial fibrillation: Code(s): I48.0 - Paroxysmal atrial fibrillation Status: Acute (6) Diabetes: Qualifiers: Diabetes mellitus type: type 2 Diabetes mellitus termite treater insulin use: with jail use Diabetes mellitus complication status: without complication Qualified Code(s): E11.9 - Type 2 diabetes mellitus without complications; Z79.4 - terminal operator (current) use of insulin Code(s): E11.9 - Type 2 diabetes mellitus without complications Status: Acute (7) Anxiety and depression: Code(s): F41.9 - Anxiety disorder, unspecified; F32.A - Depression, unspecified Status: Acute (8) Hyperlipidemia LDL goal <70: Code(s): E78.5 - Hyperlipidemia, unspecified Status: Acute (9) Thrush: Code(s): B37.0 - Candidal stomatitis Status: Acute Plan 79-year-old female presents the hospital on 01/14/2025 with complaints of chest pain. STEMI - She was found to have a ST-elevation myocardial infarction and was taken to the [facility] that day. She had a PCI to the LAD with 1 stent placed. Patient is allergic to aspirin. She was started on ticagrelor, carvedilol, lisinopril, rosuvastatin. On 01/15/2025 around noon the patient had increased ST elevation in leads V1 and V2, Dr. Rios was concerned about a possible aneurysm with plan to continue with current medical management at that time however if the patient complains of chest pain, has decreased oxygen saturations or decreasing her blood pressure, Dr. Rios to take her back to the forestry farm lab[facility]. Continue aggressive medical management. Continue statin. Acute systolic CHF/ischemic CMP - Chest x-ray with the findings of CHF. Echo with severe cardiomyopathy with EF 20-25%. Patient started on diuresis with IV Lasix. Patient will need LifeVest. For ischemic cardiomyopathy she is on losartan. Blood pressure limiting up titration of these medications. Not tolerating Toprol and currently on hold. DNR code status and refused LifeVest however now agreeable and has been fitted. BNP 5790. Repeat TTE as outpatient basis. BP stable and renal function better - Lasix IV once. Cough/PNA - Repeat Chest x-ray showed findings of respiratory bronchiolitis and was treated with Rocephin/doxycycline/Ceftin. Sputum culture with Haemophilus influenzae. With penicillin allergy. Prednisone 01/22/2025 and finished 5 days. Repeat check chest x-ray 01/25 with mild interstitial edema but CT chest showing bibasilar PNA. Bedside swallow okay. Viral studies ordered. ID consulted and Cefepime started. Repeat sputum Cx ordered. Repeat MRSA screen negative. Some improvement today. Continue cefepime. Monitor WBC AFib - Patient on anticoagulation for paroxysmal atrial fibrillation which will be continued. Patient intolerant to aspirin given facial swelling with potential compromise respiratory system and hence on Eliquis and Plavix. EKG yesterday showing NSR Heart rate controlled. DM - Glucose reasonably well controlled. Takes Basaglar and linagliptin at home. A1c 10.3%. Continue AccuCheks covering with sliding scale. Hypoglycemia protocol available as needed. Continue to monitor. Depression/Anxiety - Mood stable. Continue Effexor. HLD - LFTs stable. Continue Crestor. Thrush - probably thrush since on inhaled steroids but consider viral stomatitis. No vermicular lesions. Add nystatin and stop pulmicort DVT profile: Apixaban Code status - DNR PT OT recommend home health which has been arranged with the help of care coordination. Subjective Date/time seen: 01/29/25 13:49 Interval history: 79 year old female with past medical history of anxiety, depression, TIA, hypertension, acid reflux, diabetes and arthritis presented the ED on 01/14/2025 in the early hours with complains of chest pain. Cough is better today. Sputum is becoming thinner. No chest pain or shortness of breath. She is walking in the halls with her walker. Complains of mouth feeling sore Exam Narrative: AF 97.4 120/70 80 20 97% ra Gen - NARD HEENT - small reddish and whitish lesions buccal mucosa Chest -left > right basilar crackles. CV - RRR S1/S2 Abd - Soft, NT/ND, Positive BS Ext - No pedal edema Neuro - Alert and appropriate Psych - Nml mood and affect Skin - Warm and dry Objective Data Vital Signs Vital Signs: Vital Signs - 24 hr 01/28/25 14:10 01/28/25 14:10 01/28/25 14:21 Temperature Pulse Rate 79 79 82 Respiratory Rate 20 20 20 Blood Pressure Pulse Oximetry 92 Oxygen Delivery Room Air 01/28/25 15:54 01/28/25 16:00 01/28/25 20:30 Temperature 99.3 F 96.6 F L Pulse Rate 91 88 80 Respiratory Rate 20 16 Blood Pressure 116/60 113/68 Pulse Oximetry 94 95 Oxygen Delivery 01/28/25 20:38 01/28/25 20:39 01/28/25 20:55 Temperature Pulse Rate 80 77 Respiratory Rate 20 20 Blood Pressure Pulse Oximetry 95 Oxygen Delivery Room Air 01/29/25 02:30 01/29/25 05:00 01/29/25 07:20 Temperature 97.4 F L Pulse Rate 83 87 Respiratory Rate 20 16 Blood Pressure 120/70 Pulse Oximetry 95 97 Oxygen Delivery Room Air 01/29/25 07:20 01/29/25 07:34 01/29/25 08:00 Temperature Pulse Rate 78 83 86 Respiratory Rate 20 20 Blood Pressure Pulse Oximetry Oxygen Delivery 01/29/25 08:39 01/29/25 08:40 01/29/25 12:00 Temperature Pulse Rate 88 84 Respiratory Rate Blood Pressure Pulse Oximetry Oxygen Delivery Room Air 01/29/25 13:24 01/29/25 13:32 Temperature Pulse Rate 90 80 Respiratory Rate 20 20 Blood Pressure Pulse Oximetry Oxygen Delivery Intake/Output Intake/Output: Intake & Output 01/26/25 01/27/25 01/28/25 01/29/25 23:59 23:59 23:59 23:59 Intake Total 250 892 7364 1500 Balance 178 749 7586 1500 Meds/Results Medications: Active Medications Generic Name Dose Route Start Last Admin Trade Name Freq PRN Reason Stop Dose Admin Acetaminophen 650 mg 01/21/25 16:22 01/21/25 16:49 Acetaminophen 325 Mg Tablet PO 650 mg Q6H PRN Administration Mild Pain (1-3) or Fever Apixaban 5 mg 01/15/25 10:55 01/29/25 08:41 Apixaban 5 Mg Tablet PO 5 mg Q12HR DOYLE Administration Benzonatate 100 mg 01/22/25 22:00 01/29/25 05:20 Benzonatate 100 Mg Capsule PO 100 mg Q8HR DOYLE Administration Budesonide 0.5 mg 01/20/25 09:50 01/29/25 07:19 Budesonide Respule Neb 0.5 Mg/2 Ml Amp INHALATION 0.5 mg Q12HRT DOYLE Administration Clopidogrel Bisulfate 75 mg 01/16/25 09:00 01/29/25 08:38 Clopidogrel Bisulfate 75 Mg Tablet PO 75 mg DAILY DOYLE Administration Dextrose 12.5 gm 01/14/25 08:08 Dextrose 50% 25 Gm/50 Ml Syringe IV PUSH PRN PRN Hypoglycemia Protocol Empagliflozin 10 mg 01/19/25 09:00 01/29/25 08:38 Empagliflozin 10 Mg Tablet PO 10 mg DAILY DOYLE Administration Fluticasone Propionate 1 spray 01/15/25 21:00 01/29/25 08:41 Fluticasone Propionate 0.05% Na Spr 16 Gm Btl (*Bkc) NASAL 1 spray Q12HR DOYLE Administration Glucagon 1 mg 01/14/25 08:08 Glucagon For Inj 1 Mg Vial IM PRN PRN Hypoglycemia Protocol Glucose 15 gm 01/14/25 08:08 Glucose Oral Gel 15 Gm Of Glucse In 37.5 Gm Tube PO PRN PRN Hypoglycemia Protocol Guaifenesin 1,200 mg 01/23/25 21:00 01/29/25 08:40 Guaifenesin 12 Hr 600 Mg Tabcr PO 1,200 mg Q12HR DOYLE Administration Guaifenesin/Dextromethorphan 10 ml 01/14/25 09:03 01/25/25 08:31 Guaifenesin/Dextromethorphan 10 Ml Udc PO 10 ml Q4H PRN Administration Cough Dextrose 1,000 mls @ 100 mls/hr 01/14/25 08:08 Dextrose 5% 1,000 Ml IVPB PRN PRN Hypoglycemia Protocol Cefepime HCl 2 gm/ Sodium 50 mls @ 100 mls/hr 01/28/25 13:05 01/29/25 09:11 Chloride IVPB Infused Q12HR DOYLE Infusion Insulin Aspart 2 - 4 units 01/14/25 21:00 01/28/25 22:29 Insulin Aspart (*Bkc) 100 Units/Ml SUB-Q Not Given HS [facility] Protocol Insulin Aspart 4 - 8 units 01/14/25 12:00 01/29/25 12:27 Insulin Aspart (*Bkc) 100 Units/Ml SUB-Q Not Given TIDWM [facility] Protocol Insulin Glargine 38 units 01/15/25 21:00 01/28/25 22:23 Insulin Glargine (*Bkc) 100 Units/Ml SUB-Q 38 units HS DOYLE Administration Ipratropium [place] 0.5 mg 01/21/25 20:00 01/29/25 13:23 Ipratropium Br 0.02% Inh Soln 0.5 Mg/2.5 Ml Vial INHALATION 0.5 mg Q6HRT DOYLE Administration Levalbuterol HCl 0.63 mg 01/21/25 20:00 01/29/25 13:23 Levalbuterol Neb 1.25 Mg/3 Ml INHALATION 0.63 mg Q6HRT DOYLE Administration Metoprolol Succinate 12.5 mg 01/23/25 09:00 01/29/25 08:39 Metoprolol Succinate Ext Rel 12.5 Mg Tabcr PO 12.5 mg QAM DOYLE Administration Ondansetron HCl 4 mg 01/14/25 09:03 01/16/25 12:27 Ondansetron Inj 4 Mg/2 Ml Vial IV PUSH 4 mg Q6H PRN Administration Nausea And Vomiting Rosuvastatin Calcium 20 mg 01/15/25 21:00 01/28/25 22:15 Rosuvastatin 20 Mg Tablet PO 20 mg QHS DOYLE Administration Sitagliptin Phosphate 50 mg 01/22/25 09:00 01/29/25 08:40 Sitagliptin Phosphate 50 Mg Tablet PO 50 mg QAM DOYLE Administration Sodium Chloride 1 spray 01/16/25 14:19 01/17/25 21:07 Saline 0.65% Frank Soln 44 Ml Btl NASAL 1 spray Q6HR PRN Administration Congestion Venlafaxine HCl 150 mg 01/15/25 09:00 01/29/25 08:38 Venlafaxine Hcl Xr 75 Mg Cap.Er.24h PO 150 mg DAILY DOYLE Administration Radiology Results: ITS Impressions Chest/Abdomen/Pelvis CTA 01/14/25 08:21 IMPRESSION: 1. Normal caliber aorta with no dissection. No acute cardiopulmonary disease or acute intra-abdominal/pelvic process. 2. Diverticulosis. Abdomen X-Ray 01/16/25 13:09 Impression: 1. No acute abnormality. Chest X-Ray 01/25/25 12:42 IMPRESSION: 1. Interstitial opacities in both lungs. Differential includes interstitial edema, interstitial pneumonia or chronic interstitial changes. If symptoms persist or worsen, consider a short-term follow-up study or additional imaging for further assessment. Chest CT 01/27/25 21:25 IMPRESSION: 1. Patchy bilateral groundglass opacities have developed since prior study, compatible with pneumonia. 2: Small bilateral pleural effusions are new. Labs Labs: Laboratory Results - last 24 hr 01/28/25 01/28/25 01/28/25 14:15 16:46 20:36 WBC RBC Hgb Hct MCV MCH MCHC RDW Plt Count MPV Immature Gran % (Auto) Neut % (Auto) Lymph % (Auto) [place] % (Auto) Eos % (Auto) Baso % (Auto) Lymph # (Auto) [place] # (Auto) Eos # (Auto) Baso # (Auto) Abs Immat Gran (auto) Absolute Neuts (auto) Absolute Nucleated RBC Nucleated RBC % Sodium Potassium Chloride Carbon Dioxide Anion Gap BUN Creatinine Estim Creat Clear Calc Estimated GFR Glucose POC Capillary Glucose 158 H 199 H Hemoglobin A1c Calcium Magnesium Total Bilirubin AST ALT Alkaline Phosphatase NT-Pro-B Natriuret Pep Total Protein Albumin Nasal MRSA (PCR) Not detected 01/29/25 01/29/25 01/29/25 05:09 07:52 12:15 WBC 13.1 H RBC 4.63 Hgb 14.2 Hct 44.5 MCV 96.1 MCH 30.7 MCHC 31.9 L RDW 13.2 Plt Count 343 MPV 9.5 Immature Gran % (Auto) 1.2 H Neut % (Auto) 69.5 Lymph % (Auto) 17.3 L [place] % (Auto) 9.2 H Eos % (Auto) 2.4 Baso % (Auto) 0.4 Lymph # (Auto) 2.26 [place] # (Auto) 1.2 H Eos # (Auto) 0.3 Baso # (Auto) 0.1 Abs Immat Gran (auto) 0.16 H Absolute Neuts (auto) 9.1 H Absolute Nucleated RBC 0.000 Nucleated RBC % 0.0 Sodium 138 Potassium 3.8 Chloride 104 Carbon Dioxide 29 Anion Gap 5 BUN 21 H Creatinine 1.08 H Estim Creat Clear Calc 38 Estimated GFR 49 L Glucose 85 POC Capillary Glucose 85 88 Hemoglobin A1c 10.3 H Calcium 8.5 Magnesium 1.9 Total Bilirubin 0.5 AST 43 H ALT 26 Alkaline Phosphatase 85 NT-Pro-B Natriuret Pep 5790 H Total Protein 6.1 L Albumin 3.2 L Nasal MRSA (PCR)
[2025-01-29] MEDS: FUROSEMIDE INJ 40 MG/4 ML VIAL IV PUSH (14:28)
[2025-01-29] MEDS: NYSTATIN 100,000 UNITS/ML SUSP 5 ML ORAL.SUSP PO ×2 (17:09→21:05)
[2025-01-29] MEDS: ROSUVASTATIN 20 MG TABLET PO (20:38)
[2025-01-29] MEDS: INSULIN GLARGINE (*BKC) 100 UNITS/ML 38 UNITS SUB-Q (21:01)
[2025-01-29] MEDS: INSULIN ASPART (*BKC) 100 UNITS/ML SUB-Q (21:02)
[2025-01-30] VITALS (17 sets, daily range): BP systolic 99–106; BP diastolic 49–61; PULSE 76–93; RESP 16–20; TEMP 35.9–36.6; O2SAT 91–97
[2025-01-30] MEDS: IPRATROPIUM BR 0.02% INH SOLN 0.5 MG/2.5 ML VIAL INHALATION ×4 (01:42→20:12)
[2025-01-30] MEDS: BENZONATATE 100 MG CAPSULE PO ×3 (06:07→18:37)
[2025-01-30 06:23] LABS: Hematocrit 46.1 % (37.0-47.0); Hemoglobin 14.5 g/dL (12.0-15.0); Immature Granulocyte Percent A 1.1 % (0-0.5); Lymphocytes Absolute Auto 2.41 K/mm3 (0.9-3.2); Mean Corpuscular HGB Conc 31.5 g/dl (32-36); Mean Corpuscular Hemoglobin 30.5 pg (26-34); Mean Corpuscular Volume 96.8 fl (80-100); Nucleated Red Blood Cells Absolute Auto 0.000 K/mm3 (0.0-0.012); Nucleated Red Blood Cells Perc 0.0 % (0.0-0.2); Platelet Count Result 317 k/mm3 (150-375); Red Blood Count 4.76 M/mm3 (4.2-5.4); White Blood Count 12.6 K/mm3 (4.5-10.0)
[2025-01-30 06:48] LABS: Alanine Aminotransferase 24 U/L (6-35); Albumin Level 3.2 g/dL (3.5-5.1); Alkaline Phosphatase 79 U/L (38-126); Anion Gap 4 mmol/L (4-12); Aspartate Amino Transferase 37 U/L (14-36); Bilirubin,Total 0.6 mg/dL (0.2-1.3); Blood Urea Nitrogen 24 mg/dL (7-17); Calcium 8.3 mg/dL (8.4-10.2); Carbon Dioxide 27 mmol/L (22-30); Chloride 103 mmol/L (98-107); Estimated CRCL calculation 36 ml/min; Estimated Glomerular Filt Rate 46; Glucose 81 mg/dL (65-110); Potassium 3.5 mmol/L (3.4-5.0); Sodium 134 mmol/L (137-145); Total Protein 6.2 g/dL (6.3-8.2)
[2025-01-30] MEDS: POTASSIUM CHLORIDE 20 MEQ ER TABLET 40 MEQ PO (09:28)
[2025-01-30] MEDS: CEFEPIME 2 GM in SODIUM CHLORIDE 0.9% IV 50 ML 100 ML IVPB ×2 (09:29→20:59)
[2025-01-30] MEDS: APIXABAN 5 MG TABLET PO ×2 (09:29→21:01)
[2025-01-30] MEDS: guaiFENesin 12 HR 600 MG TABCR 1200 MG PO ×2 (09:30→20:59)
[2025-01-30] MEDS: CLOPIDOGREL BISULFATE 75 MG TABLET PO (09:30)
[2025-01-30] MEDS: EMPAGLIFLOZIN 10 MG TABLET PO (09:30)
[2025-01-30] MEDS: METOPROLOL SUCCINATE EXT REL 12.5 MG TABCR PO (09:31)
[2025-01-30] MEDS: NYSTATIN 100,000 UNITS/ML SUSP 5 ML ORAL.SUSP PO ×4 (09:31→21:01)
[2025-01-30] MEDS: VENLAFAXINE HCL XR 75 MG CAP.ER.24H 150 MG PO (09:32)
--- NOTE | 2025-01-30 13:05 | PM.PNCARD ---
Progress Note: A&P Assessment and Plan (1) ST elevation (STEMI) myocardial infarction: Code(s): I21.3 - ST elevation (STEMI) myocardial infarction of unspecified site Status: Acute (2) Ischemic cardiomyopathy: Code(s): I25.5 - Ischemic cardiomyopathy Status: Acute Plan 79-year-old female with: -Anterior STEMI status post PCI to mid LAD -Aspirin allergy -Acute systolic heart failure with LVEF of 20-25% secondary to AMI currently compensated -Paroxysmal atrial fibrillation on chronic anticoagulation with Eliquis -Hypotension-SBP in the 90s to 120s range Plan: Continue aspirin Plavix Continuos rosuvastatin 20 mg p.o. daily Guideline directed medical therapy for systolic heart failure as blood pressure allows. Continue metoprolol 12.5 mg p.o. daily and empagliflozin 10 mg p.o. daily. Follow-up echocardiogram as outpatient Subjective Date/time seen: 01/30/25 13:05 Interval history: Patient is seen for evaluation of coronary artery disease and history of LA No acute events overnight Telemetry sinus rhythm Review of Systems Review of Systems: All systems reviewed & are unremarkable except as noted in HPI and below Exam Narrative: General: Alert oriented x3, no acute distress, coughing intermittently Neck: Supple, no JVD Chest: Bilaterally coarse, no rhonchi Cardiac: S1, S2 +, regular rate, regular rhythm, no murmurs or rubs Extremities: No pedal edema, no skin rash Neurologic: Alert and oriented x3, no focal neurological deficits Objective Data Vital Signs Vital Signs: Vital Signs - 24 hr 01/29/25 13:24 01/29/25 13:32 01/29/25 14:37 Temperature 36.9 C Pulse Rate 90 80 96 Respiratory Rate 20 20 18 Blood Pressure 100/51 L Pulse Oximetry 94 Oxygen Delivery 01/29/25 16:00 01/29/25 16:02 01/29/25 19:53 Temperature Pulse Rate 97 Respiratory Rate Blood Pressure 96/70 L Pulse Oximetry 91 Oxygen Delivery Room Air 01/29/25 19:53 01/29/25 20:02 01/29/25 22:00 Temperature 36.7 C Pulse Rate 51 L 60 65 Respiratory Rate 16 16 18 Blood Pressure 104/66 Pulse Oximetry 92 Oxygen Delivery 01/30/25 01:43 01/30/25 01:48 01/30/25 06:00 Temperature 36.4 C L Pulse Rate 93 92 83 Respiratory Rate 16 16 18 Blood Pressure 101/54 L Pulse Oximetry 92 Oxygen Delivery 01/30/25 07:22 01/30/25 07:33 01/30/25 07:35 Temperature Pulse Rate 86 86 86 Respiratory Rate 18 18 Blood Pressure Pulse Oximetry 91 Oxygen Delivery Room Air 01/30/25 09:31 01/30/25 09:35 Temperature Pulse Rate 87 88 Respiratory Rate Blood Pressure 99/58 L Pulse Oximetry 92 Oxygen Delivery Intake/Output Intake/Output: Intake & Output 01/27/25 01/28/25 01/29/25 01/30/25 23:59 23:59 23:59 23:59 Intake Total 720 1090 1750 360 Balance 720 1090 1750 360 Meds/Results Medications: Active Medications Generic Name Dose Route Start Last Admin Trade Name Freq PRN Reason Stop Dose Admin Acetaminophen 650 mg 01/21/25 16:22 01/21/25 16:49 Acetaminophen 325 Mg Tablet PO 650 mg Q6H PRN Administration Mild Pain (1-3) or Fever Apixaban 5 mg 01/15/25 10:55 01/30/25 09:29 Apixaban 5 Mg Tablet PO 5 mg Q12HR DOYLE Administration Benzonatate 100 mg 01/22/25 22:00 01/30/25 06:07 Benzonatate 100 Mg Capsule PO 100 mg Q8HR DOYLE Administration Clopidogrel Bisulfate 75 mg 01/16/25 09:00 01/30/25 09:30 Clopidogrel Bisulfate 75 Mg Tablet PO 75 mg DAILY DOYLE Administration Dextrose 12.5 gm 01/14/25 08:08 Dextrose 50% 25 Gm/50 Ml Syringe IV PUSH PRN PRN Hypoglycemia Protocol Empagliflozin 10 mg 01/19/25 09:00 01/30/25 09:30 Empagliflozin 10 Mg Tablet PO 10 mg DAILY DOYLE Administration Fluticasone Propionate 1 spray 01/15/25 21:00 01/30/25 11:45 Fluticasone Propionate 0.05% Na Spr 16 Gm Btl (*Bkc) NASAL Not Given Q12HR DOYLE Glucagon 1 mg 01/14/25 08:08 Glucagon For Inj 1 Mg Vial IM PRN PRN Hypoglycemia Protocol Glucose 15 gm 01/14/25 08:08 Glucose Oral Gel 15 Gm Of Glucse In 37.5 Gm Tube PO PRN PRN Hypoglycemia Protocol Guaifenesin 1,200 mg 01/23/25 21:00 01/30/25 09:30 Guaifenesin 12 Hr 600 Mg Tabcr PO 1,200 mg Q12HR DOYLE Administration Guaifenesin/Dextromethorphan 10 ml 01/14/25 09:03 01/25/25 08:31 Guaifenesin/Dextromethorphan 10 Ml Udc PO 10 ml Q4H PRN Administration Cough Dextrose 1,000 mls @ 100 mls/hr 01/14/25 08:08 Dextrose 5% 1,000 Ml IVPB PRN PRN Hypoglycemia Protocol Cefepime HCl 2 gm/ Sodium 50 mls @ 100 mls/hr 01/28/25 13:05 01/30/25 09:29 Chloride IVPB 100 mls/hr Q12HR ODYLE Administration Insulin Aspart 2 - 4 units 01/14/25 21:00 01/29/25 21:02 Insulin Aspart (*Bkc) 100 Units/Ml SUB-Q 2 units HS DOYLE Administration Protocol Insulin Aspart 4 - 8 units 01/14/25 12:00 01/30/25 13:03 Insulin Aspart (*Bkc) 100 Units/Ml SUB-Q Not Given TIDWM DOYLE Protocol Insulin Glargine 38 units 01/15/25 21:00 01/29/25 21:01 Insulin Glargine (*Bkc) 100 Units/Ml SUB-Q 38 units HS DOYLE Administration Ipratropium [place] 0.5 mg 01/21/25 20:00 01/30/25 07:21 Ipratropium Br 0.02% Inh Soln 0.5 Mg/2.5 Ml Vial INHALATION 0.5 mg Q6HRT DOYLE Administration Levalbuterol HCl 0.63 mg 01/21/25 20:00 01/30/25 07:21 Levalbuterol Neb 1.25 Mg/3 Ml INHALATION 0.63 mg Q6HRT DOYLE Administration Metoprolol Succinate 12.5 mg 01/23/25 09:00 01/30/25 09:31 Metoprolol Succinate Ext Rel 12.5 Mg Tabcr PO 12.5 mg QAM DOYLE Administration Nystatin 5 ml 01/29/25 17:00 01/30/25 09:31 Nystatin 100,000 Units/Ml Susp 5 Ml Oral.Susp PO 5 ml QID DOYLE Administration Ondansetron HCl 4 mg 01/14/25 09:03 01/16/25 12:27 Ondansetron Inj 4 Mg/2 Ml Vial IV PUSH 4 mg Q6H PRN Administration Nausea And Vomiting Rosuvastatin Calcium 20 mg 01/15/25 21:00 01/29/25 20:38 Rosuvastatin 20 Mg Tablet PO 20 mg QHS DOYLE Administration Sitagliptin Phosphate 50 mg 01/22/25 09:00 01/30/25 09:31 Sitagliptin Phosphate 50 Mg Tablet PO 50 mg QAM DOYLE Administration Sodium Chloride 1 spray 01/16/25 14:19 01/17/25 21:07 Saline 0.65% Frank Soln 44 Ml Btl NASAL 1 spray Q6HR PRN Administration Congestion Venlafaxine HCl 150 mg 01/15/25 09:00 01/30/25 09:32 Venlafaxine Hcl Xr 75 Mg Cap.Er.24h PO 150 mg DAILY DOYLE Administration Radiology Results: ITS Impressions Chest/Abdomen/Pelvis CTA 01/14/25 08:21 IMPRESSION: 1. Normal caliber aorta with no dissection. No acute cardiopulmonary disease or acute intra-abdominal/pelvic process. 2. Diverticulosis. Abdomen X-Ray 01/16/25 13:09 Impression: 1. No acute abnormality. Chest X-Ray 01/25/25 12:42 IMPRESSION: 1. Interstitial opacities in both lungs. Differential includes interstitial edema, interstitial pneumonia or chronic interstitial changes. If symptoms persist or worsen, consider a short-term follow-up study or additional imaging for further assessment. Chest CT 01/27/25 21:25 IMPRESSION: 1. Patchy bilateral groundglass opacities have developed since prior study, compatible with pneumonia. 2: Small bilateral pleural effusions are new. Labs Labs: Laboratory Results - last 24 hr 01/27/25 01/29/25 01/29/25 22:36 17:00 17:11 WBC RBC Hgb Hct MCV MCH MCHC RDW Plt Count MPV Immature Gran % (Auto) Neut % (Auto) Lymph % (Auto) [place] % (Auto) Eos % (Auto) Baso % (Auto) Lymph # (Auto) [place] # (Auto) Eos # (Auto) Baso # (Auto) Abs Immat Gran (auto) Absolute Neuts (auto) Absolute Nucleated RBC Nucleated RBC % Sodium Potassium Chloride Carbon Dioxide Anion Gap BUN Creatinine Estim Creat Clear Calc Estimated GFR Glucose POC Capillary Glucose 134 H 113 H Calcium Total Bilirubin AST ALT Alkaline Phosphatase Total Protein Albumin Chlamy pneumoniae PCR Not detected Adenovirus (PCR) Not detected B. pertussis DNA (PCR) Not detected B.parapertussis DNA PCR Not detected Coronavirus OC43 (PCR) Not detected Coronavirus HKU1 (PCR) Not detected Coronavirus 229E (PCR) Not detected Coronavirus NL63 (PCR) Not detected Human Metapneumovir PCR Not detected Influenza A (H1) PCR Not detected Influ A (H1/09) PCR Not detected Influenza A (H3) PCR Not detected Influenza Type A (PCR) Not detected Influenza Type B (PCR) Not detected M. pneumoniae (PCR) Not detected Parainfluenza 1 (PCR) Not detected Parainfluenza 2 (PCR) Not detected Parainfluenza 3 (PCR) Not detected Parainfluenza 4 (PCR) Not detected RSV (PCR) Not detected Entero/Rhino (PCR) Detected A SARS-CoV-2 (PCR) Not detected 01/29/25 01/30/25 01/30/25 19:51 06:10 07:38 WBC 12.6 H RBC 4.76 Hgb 14.5 Hct 46.1 MCV 96.8 MCH 30.5 MCHC 31.5 L RDW 13.1 Plt Count 317 MPV 9.5 Immature Gran % (Auto) 1.1 H Neut % (Auto) 67.3 Lymph % (Auto) 19.1 [place] % (Auto) 9.4 H Eos % (Auto) 2.5 Baso % (Auto) 0.6 Lymph # (Auto) 2.41 [place] # (Auto) 1.2 H Eos # (Auto) 0.3 Baso # (Auto) 0.1 Abs Immat Gran (auto) 0.14 H Absolute Neuts (auto) 8.5 H Absolute Nucleated RBC 0.000 Nucleated RBC % 0.0 Sodium 134 L Potassium 3.5 Chloride 103 Carbon Dioxide 27 Anion Gap 4 BUN 24 H Creatinine 1.14 H Estim Creat Clear Calc 36 Estimated GFR 46 L Glucose 81 POC Capillary Glucose 220 H 83 Calcium 8.3 L Total Bilirubin 0.6 AST 37 H ALT 24 Alkaline Phosphatase 79 Total Protein 6.2 L Albumin 3.2 L Chlamy pneumoniae PCR Adenovirus (PCR) B. pertussis DNA (PCR) B.parapertussis DNA PCR Coronavirus OC43 (PCR) Coronavirus HKU1 (PCR) Coronavirus 229E (PCR) Coronavirus NL63 (PCR) Human Metapneumovir PCR Influenza A (H1) PCR Influ A () PCR Influenza A (H3) PCR Influenza Type A (PCR) Influenza Type B (PCR) M. pneumoniae (PCR) Parainfluenza 1 (PCR) Parainfluenza 2 (PCR) Parainfluenza 3 (PCR) Parainfluenza 4 (PCR) RSV (PCR) Entero/Rhino (PCR) SARS-CoV-2 (PCR) 01/30/25 12:21 WBC RBC Hgb Hct MCV MCH MCHC RDW Plt Count MPV Immature Gran % (Auto) Neut % (Auto) Lymph % (Auto) [place] % (Auto) Eos % (Auto) Baso % (Auto) Lymph # (Auto) [place] # (Auto) Eos # (Auto) Baso # (Auto) Abs Immat Gran (auto) Absolute Neuts (auto) Absolute Nucleated RBC Nucleated RBC % Sodium Potassium Chloride Carbon Dioxide Anion Gap BUN Creatinine Estim Creat Clear Calc Estimated GFR Glucose POC Capillary Glucose 134 H Calcium Total Bilirubin AST ALT Alkaline Phosphatase Total Protein Albumin Chlamy pneumoniae PCR Adenovirus (PCR) B. pertussis DNA (PCR) B.parapertussis DNA PCR Coronavirus OC43 (PCR) Coronavirus HKU1 (PCR) Coronavirus 229E (PCR) Coronavirus NL63 (PCR) Human Metapneumovir PCR Influenza A (H1) PCR Influ A () PCR Influenza A (H3) PCR Influenza Type A (PCR) Influenza Type B (PCR) M. pneumoniae (PCR) Parainfluenza 1 (PCR) Parainfluenza 2 (PCR) Parainfluenza 3 (PCR) Parainfluenza 4 (PCR) RSV (PCR) Entero/Rhino (PCR) SARS-CoV-2 (PCR)
--- NOTE | 2025-01-30 17:09 | PM.IMPN ---
Progress Note: A&P Assessment and Plan (1) ST elevation (STEMI) myocardial infarction: Code(s): I21.3 - ST elevation (STEMI) myocardial infarction of unspecified site Status: Acute (2) Acute systolic (congestive) heart failure: Code(s): I50.21 - Acute systolic (congestive) heart failure Status: Acute (3) Cough: Code(s): R05.9 - Cough, unspecified Status: Acute (4) Ischemic cardiomyopathy: Code(s): I25.5 - Ischemic cardiomyopathy Status: Acute (5) Paroxysmal atrial fibrillation: Code(s): I48.0 - Paroxysmal atrial fibrillation Status: Acute (6) Diabetes: Qualifiers: Diabetes mellitus type: type 2 Diabetes 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 insulin use: with longterm use Diabetes mellitus complication status: without complication Qualified Code(s): E11.9 - Type 2 diabetes mellitus without complications; Z79.4 - intermodal customer service (current) use of insulin Code(s): E11.9 - Type 2 diabetes mellitus without complications Status: Acute (7) Anxiety and depression: Code(s): F41.9 - Anxiety disorder, unspecified; F32.A - Depression, unspecified Status: Acute (8) Hyperlipidemia LDL goal <70: Code(s): E78.5 - Hyperlipidemia, unspecified Status: Acute (9) Thrush: Code(s): B37.0 - Candidal stomatitis Status: Acute Plan 79-year-old female presents the hospital on 01/14/2025 with complaints of chest pain. STEMI - She was found to have a ST-elevation myocardial infarction and was taken to the receiver/laborer that day. She had a PCI to the LAD with 1 stent placed. Patient is allergic to aspirin. She was started on ticagrelor, carvedilol, lisinopril, rosuvastatin. On 01/15/2025 around noon the patient had increased ST elevation in leads V1 and V2, Dr. Rios was concerned about a possible aneurysm with plan to continue with current medical management at that time however if the patient complains of chest pain, has decreased oxygen saturations or decreasing her blood pressure, Dr. Rios to take her back to the receiver/laborer. Continue aggressive medical management with Crestor, Plavix, Empagliflozin, Toprol XL. Losartan stopped by cardiology due to cough Acute systolic CHF/ischemic CMP - Chest x-ray with the findings of CHF. Echo with severe cardiomyopathy with EF 20-25%. Patient started on diuresis with IV Lasix. She is on Toprol XL and Empagliflozin. Blood pressure limiting up titration of these medications. DNR code status and refused LifeVest initally however now agreeable and has been fitted. BNP 5790. Lasix 40mg IV once given Repeat TTE as outpatient basis. PNA - Repeat Chest x-ray showed findings of respiratory bronchiolitis and was treated with Rocephin/doxycycline/Ceftin (01/17->01/23). Sputum culture 01/17 positive with Haemophilus influenzae. With penicillin allergy. Prednisone and finished 5 days on 01/26. Repeat chest x-ray 01/25 with mild interstitial edema but CT chest 01/27 showing bibasilar PNA. Bedside swallow okay. Viral studies ordered and positive for enterovirus. ID consulted and Cefepime started. Repeat sputum Cx pending. Repeat MRSA screen negative. Continues to improve. WBC slowly trending down. Continue cefepime. Monitor WBC. Continue neb treatments. Pulmicort stopped. Remains on tessalon pearls and Mucinex AFib - Patient on anticoagulation for paroxysmal atrial fibrillation which will be continued. Patient intolerant to aspirin given facial swelling with potential compromise respiratory system and hence on Eliquis and Plavix. EKG yesterday showing NSR Heart rate controlled. Continue Toprol XL. DM - Takes Basaglar and linagliptin at home. A1c 10.3%. Glucose reasonably well controlled. No lows but glucose was 83 this morning Continue AccuCheks covering with sliding scale. Hypoglycemia protocol available as needed. Continue to monitor. Back off on lantus. Depression/Anxiety - Mood stable. Continue Effexor. HLD - LFTs stable. Continue Crestor. Thrush - probably thrush since on inhaled steroids but consider viral stomatitis. No vermicular lesions. Added nystatin and stopped pulmicort DVT profile: Apixaban Code status - DNR PT OT recommend home health which has been arranged with the help of care coordination. Subjective Date/time seen: 01/30/25 17:09 Interval history: 79 year old female with past medical history of anxiety, depression, TIA, hypertension, acid reflux, diabetes and arthritis presented the ED on 01/14/2025 in the early hours with complains of chest pain. Cough much better. Mouth pain better as well. No CP or SOB. Walking in the room. Exam Narrative: AF 97.8 106 /61 80 16 97% ra Gen - NARD Chest - coarse BS with expiratory wheezes. CV - RRR S1/S2 Abd - Soft, NT/ND, Positive BS Ext - No pedal edema Neuro - Alert and appropriate Psych - Nml mood and affect Skin - Warm and dry Objective Data Vital Signs Vital Signs: Vital Signs - 24 hr 01/29/25 19:53 01/29/25 19:53 01/29/25 20:02 Temperature Pulse Rate 51 L 60 Respiratory Rate 16 16 Blood Pressure Pulse Oximetry 91 Oxygen Delivery Room Air 01/29/25 22:00 01/30/25 01:43 01/30/25 01:48 Temperature 98.1 F Pulse Rate 65 93 92 Respiratory Rate 18 16 16 Blood Pressure 104/66 Pulse Oximetry 92 Oxygen Delivery 01/30/25 06:00 01/30/25 07:22 01/30/25 07:33 Temperature 97.5 F L Pulse Rate 83 86 86 Respiratory Rate 18 18 18 Blood Pressure 101/54 L Pulse Oximetry 92 Oxygen Delivery 01/30/25 07:35 01/30/25 08:00 01/30/25 08:00 Temperature Pulse Rate 86 89 Respiratory Rate Blood Pressure Pulse Oximetry 91 Oxygen Delivery Room Air Room Air 01/30/25 09:31 01/30/25 09:35 01/30/25 13:08 Temperature 97.8 F Pulse Rate 87 88 89 Respiratory Rate 18 Blood Pressure 99/58 L 106/61 Pulse Oximetry 92 97 Oxygen Delivery 01/30/25 15:36 01/30/25 15:45 Temperature Pulse Rate 81 80 Respiratory Rate 16 16 Blood Pressure Pulse Oximetry Oxygen Delivery Intake/Output Intake/Output: Intake & Output 01/27/25 01/28/25 01/29/25 01/30/25 23:59 23:59 23:59 23:59 Intake Total 720 1090 1750 840 Balance 720 1090 1750 840 Meds/Results Medications: Active Medications Generic Name Dose Route Start Last Admin Trade Name Freq PRN Reason Stop Dose Admin Acetaminophen 650 mg 01/21/25 16:22 01/21/25 16:49 Acetaminophen 325 Mg Tablet PO 650 mg Q6H PRN Administration Mild Pain (1-3) or Fever Apixaban 5 mg 01/15/25 10:55 01/30/25 09:29 Apixaban 5 Mg Tablet PO 5 mg Q12HR DOYLE Administration Benzonatate 100 mg 01/22/25 22:00 01/30/25 13:05 Benzonatate 100 Mg Capsule PO 100 mg Q8HR DOYLE Administration Clopidogrel Bisulfate 75 mg 01/16/25 09:00 01/30/25 09:30 Clopidogrel Bisulfate 75 Mg Tablet PO 75 mg DAILY DOYLE Administration Dextrose 12.5 gm 01/14/25 08:08 Dextrose 50% 25 Gm/50 Ml Syringe IV PUSH PRN PRN Hypoglycemia Protocol Empagliflozin 10 mg 01/19/25 09:00 01/30/25 09:30 Empagliflozin 10 Mg Tablet PO 10 mg DAILY DOYLE Administration Fluticasone Propionate 1 spray 01/15/25 21:00 01/30/25 11:45 Fluticasone Propionate 0.05% Na Spr 16 Gm Btl (*Bkc) NASAL Not Given Q12HR DOYLE Glucagon 1 mg 01/14/25 08:08 Glucagon For Inj 1 Mg Vial IM PRN PRN Hypoglycemia Protocol Glucose 15 gm 01/14/25 08:08 Glucose Oral Gel 15 Gm Of Glucse In 37.5 Gm Tube PO PRN PRN Hypoglycemia Protocol Guaifenesin 1,200 mg 01/23/25 21:00 01/30/25 09:30 Guaifenesin 12 Hr 600 Mg Tabcr PO 1,200 mg Q12HR DOYLE Administration Guaifenesin/Dextromethorphan 10 ml 01/14/25 09:03 01/25/25 08:31 Guaifenesin/Dextromethorphan 10 Ml Udc PO 10 ml Q4H PRN Administration Cough Dextrose 1,000 mls @ 100 mls/hr 01/14/25 08:08 Dextrose 5% 1,000 Ml IVPB PRN PRN Hypoglycemia Protocol Cefepime HCl 2 gm/ Sodium 50 mls @ 100 mls/hr 01/28/25 13:05 01/30/25 09:29 Chloride IVPB 100 mls/hr Q12HR DOYLE Administration Insulin Aspart 2 - 4 units 01/14/25 21:00 01/29/25 21:02 Insulin Aspart (*Bkc) 100 Units/Ml SUB-Q 2 units HS DOYEL Administration Protocol Insulin Aspart 4 - 8 units 01/14/25 12:00 01/30/25 13:03 Insulin Aspart (*Bkc) 100 Units/Ml SUB-Q Not Given TIDWM [facility] Protocol Insulin Glargine 38 units 01/15/25 21:00 01/29/25 21:01 Insulin Glargine (*Bkc) 100 Units/Ml SUB-Q 38 units HS DOYLE Administration Ipratropium [place] 0.5 mg 01/21/25 20:00 01/30/25 15:36 Ipratropium Br 0.02% Inh Soln 0.5 Mg/2.5 Ml Vial INHALATION 0.5 mg Q6HRT DOYLE Administration Levalbuterol HCl 0.63 mg 01/21/25 20:00 01/30/25 15:35 Levalbuterol Neb 1.25 Mg/3 Ml INHALATION 0.63 mg Q6HRT DOYLE Administration Metoprolol Succinate 12.5 mg 01/23/25 09:00 01/30/25 09:31 Metoprolol Succinate Ext Rel 12.5 Mg Tabcr PO 12.5 mg QAM DYOLE Administration Nystatin 5 ml 01/29/25 17:00 01/30/25 13:05 Nystatin 100,000 Units/Ml Susp 5 Ml Oral.Susp PO 5 ml QID DOYLE Administration Ondansetron HCl 4 mg 01/14/25 09:03 01/16/25 12:27 Ondansetron Inj 4 Mg/2 Ml Vial IV PUSH 4 mg Q6H PRN Administration Nausea And Vomiting Rosuvastatin Calcium 20 mg 01/15/25 21:00 01/29/25 20:38 Rosuvastatin 20 Mg Tablet PO 20 mg QHS DOYLE Administration Sitagliptin Phosphate 50 mg 01/22/25 09:00 01/30/25 09:31 Sitagliptin Phosphate 50 Mg Tablet PO 50 mg QAM DOYLE Administration Sodium Chloride 1 spray 01/16/25 14:19 01/17/25 21:07 Saline 0.65% Frank Soln 44 Ml Btl NASAL 1 spray Q6HR PRN Administration Congestion Venlafaxine HCl 150 mg 01/15/25 09:00 01/30/25 09:32 Venlafaxine Hcl Xr 75 Mg Cap.Er.24h PO 150 mg DAILY DOYLE Administration Radiology Results: ITS Impressions Chest/Abdomen/Pelvis CTA 01/14/25 08:21 IMPRESSION: 1. Normal caliber aorta with no dissection. No acute cardiopulmonary disease or acute intra-abdominal/pelvic process. 2. Diverticulosis. Abdomen X-Ray 01/16/25 13:09 Impression: 1. No acute abnormality. Chest X-Ray 01/25/25 12:42 IMPRESSION: 1. Interstitial opacities in both lungs. Differential includes interstitial edema, interstitial pneumonia or chronic interstitial changes. If symptoms persist or worsen, consider a short-term follow-up study or additional imaging for further assessment. Chest CT 01/27/25 21:25 IMPRESSION: 1. Patchy bilateral groundglass opacities have developed since prior study, compatible with pneumonia. 2: Small bilateral pleural effusions are new. Labs Labs: Laboratory Results - last 24 hr 01/27/25 01/29/25 01/29/25 22:36 17:00 17:11 WBC RBC Hgb Hct MCV MCH MCHC RDW Plt Count MPV Immature Gran % (Auto) Neut % (Auto) Lymph % (Auto) [place] % (Auto) Eos % (Auto) Baso % (Auto) Lymph # (Auto) [place] # (Auto) Eos # (Auto) Baso # (Auto) Abs Immat Gran (auto) Absolute Neuts (auto) Absolute Nucleated RBC Nucleated RBC % Sodium Potassium Chloride Carbon Dioxide Anion Gap BUN Creatinine Estim Creat Clear Calc Estimated GFR Glucose POC Capillary Glucose 134 H 113 H Calcium Total Bilirubin AST ALT Alkaline Phosphatase Total Protein Albumin Chlamy pneumoniae PCR Not detected Adenovirus (PCR) Not detected B. pertussis DNA (PCR) Not detected B.parapertussis DNA PCR Not detected Coronavirus OC43 (PCR) Not detected Coronavirus HKU1 (PCR) Not detected Coronavirus 229E (PCR) Not detected Coronavirus NL63 (PCR) Not detected Human Metapneumovir PCR Not detected Influenza A (H1) PCR Not detected Influ A (H1/09) PCR Not detected Influenza A (H3) PCR Not detected Influenza Type A (PCR) Not detected Influenza Type B (PCR) Not detected M. pneumoniae (PCR) Not detected Parainfluenza 1 (PCR) Not detected Parainfluenza 2 (PCR) Not detected Parainfluenza 3 (PCR) Not detected Parainfluenza 4 (PCR) Not detected RSV (PCR) Not detected Entero/Rhino (PCR) Detected A SARS-CoV-2 (PCR) Not detected 01/29/25 01/30/25 01/30/25 19:51 06:10 07:38 WBC 12.6 H RBC 4.76 Hgb 14.5 Hct 46.1 MCV 96.8 MCH 30.5 MCHC 31.5 L RDW 13.1 Plt Count 317 MPV 9.5 Immature Gran % (Auto) 1.1 H Neut % (Auto) 67.3 Lymph % (Auto) 19.1 [place] % (Auto) 9.4 H Eos % (Auto) 2.5 Baso % (Auto) 0.6 Lymph # (Auto) 2.41 [place] # (Auto) 1.2 H Eos # (Auto) 0.3 Baso # (Auto) 0.1 Abs Immat Gran (auto) 0.14 H Absolute Neuts (auto) 8.5 H Absolute Nucleated RBC 0.000 Nucleated RBC % 0.0 Sodium 134 L Potassium 3.5 Chloride 103 Carbon Dioxide 27 Anion Gap 4 BUN 24 H Creatinine 1.14 H Estim Creat Clear Calc 36 Estimated GFR 46 L Glucose 81 POC Capillary Glucose 220 H 83 Calcium 8.3 L Total Bilirubin 0.6 AST 37 H ALT 24 Alkaline Phosphatase 79 Total Protein 6.2 L Albumin 3.2 L Chlamy pneumoniae PCR Adenovirus (PCR) B. pertussis DNA (PCR) B.parapertussis DNA PCR Coronavirus OC43 (PCR) Coronavirus HKU1 (PCR) Coronavirus 229E (PCR) Coronavirus NL63 (PCR) Human Metapneumovir PCR Influenza A (H1) PCR Influ A (H1/09) PCR Influenza A (H3) PCR Influenza Type A (PCR) Influenza Type B (PCR) M. pneumoniae (PCR) Parainfluenza 1 (PCR) Parainfluenza 2 (PCR) Parainfluenza 3 (PCR) Parainfluenza 4 (PCR) RSV (PCR) Entero/Rhino (PCR) SARS-CoV-2 (PCR) 01/30/25 12:21 WBC RBC Hgb Hct MCV MCH MCHC RDW Plt Count MPV Immature Gran % (Auto) Neut % (Auto) Lymph % (Auto) [place] % (Auto) Eos % (Auto) Baso % (Auto) Lymph # (Auto) [place] # (Auto) Eos # (Auto) Baso # (Auto) Abs Immat Gran (auto) Absolute Neuts (auto) Absolute Nucleated RBC Nucleated RBC % Sodium Potassium Chloride Carbon Dioxide Anion Gap BUN Creatinine Estim Creat Clear Calc Estimated GFR Glucose POC Capillary Glucose 134 H Calcium Total Bilirubin AST ALT Alkaline Phosphatase Total Protein Albumin Chlamy pneumoniae PCR Adenovirus (PCR) B. pertussis DNA (PCR) B.parapertussis DNA PCR Coronavirus OC43 (PCR) Coronavirus HKU1 (PCR) Coronavirus 229E (PCR) Coronavirus NL63 (PCR) Human Metapneumovir PCR Influenza A (H1) PCR Influ A (H1/09) PCR Influenza A (H3) PCR Influenza Type A (PCR) Influenza Type B (PCR) M. pneumoniae (PCR) Parainfluenza 1 (PCR) Parainfluenza 2 (PCR) Parainfluenza 3 (PCR) Parainfluenza 4 (PCR) RSV (PCR) Entero/Rhino (PCR) SARS-CoV-2 (PCR)
[2025-01-30] MEDS: INSULIN GLARGINE (*BKC) 100 UNITS/ML 33 UNITS SUB-Q (20:57)
[2025-01-30] MEDS: INSULIN ASPART (*BKC) 100 UNITS/ML SUB-Q (20:58)
[2025-01-30] MEDS: FLUTICASONE PROPIONATE 0.05% NA SPR 16 GM BTL (*BKC) 1 SPRAY NASAL (20:59)
[2025-01-30] MEDS: ROSUVASTATIN 20 MG TABLET PO (20:59)
[2025-01-31] VITALS (9 sets, daily range): BP systolic 96–118; BP diastolic 65–69; PULSE 77–93; RESP 16–20; TEMP 35.8–36.3; O2SAT 93–96
[2025-01-31] MEDS: IPRATROPIUM BR 0.02% INH SOLN 0.5 MG/2.5 ML VIAL INHALATION ×2 (01:37→08:22)
[2025-01-31 06:17] LABS: Hematocrit 44.0 % (37.0-47.0); Hemoglobin 13.7 g/dL (12.0-15.0); Immature Granulocyte Percent A 0.8 % (0-0.5); Lymphocytes Absolute Auto 2.40 K/mm3 (0.9-3.2); Mean Corpuscular HGB Conc 31.1 g/dl (32-36); Mean Corpuscular Hemoglobin 30.7 pg (26-34); Mean Corpuscular Volume 98.7 fl (80-100); Nucleated Red Blood Cells Absolute Auto 0.000 K/mm3 (0.0-0.012); Nucleated Red Blood Cells Perc 0.0 % (0.0-0.2); Platelet Count Result 281 k/mm3 (150-375); Red Blood Count 4.46 M/mm3 (4.2-5.4); White Blood Count 11.6 K/mm3 (4.5-10.0)
[2025-01-31 06:28] LABS: Anion Gap 6 mmol/L (4-12); Blood Urea Nitrogen 23 mg/dL (7-17); Calcium 8.6 mg/dL (8.4-10.2); Carbon Dioxide 22 mmol/L (22-30); Chloride 108 mmol/L (98-107); Estimated CRCL calculation 44 ml/min; Estimated Glomerular Filt Rate 59; Glucose 90 mg/dL (65-110); Magnesium 1.9 mg/dL (1.6-2.3); Potassium 3.9 mmol/L (3.4-5.0); Sodium 136 mmol/L (137-145)
--- OUTSIDE RECORDS SUMMARY | 2025-01-31 10:46 | XMS_ITS | Encounter Summary ---
Author Organization [facility] Healthcare Address [address] [place] [address] Care Team Providers Care Lithographic Proofer Name Role Phone Ngozi Oquendo M.T., MD Primary Care Provider [phone] Chidi Reis MD Unavailable [phone] Encounter Details Date Type Department Care Team (Late st Contact Info) Description 01/26/2025 Orders Only [facility] Medical Group Cardiology [address] [id number] Pantera Muller MD [address] [address] Social History Tobacco Use Types Packs/Day Years Used Date Smoking Tobacco: Never Smokeless Tobacco: Never Alcohol Use Standard Drinks/Week Comments Yes 0 (1 standard drink = 0.6 oz pur e alcohol) socially Comments No Sex and Gender Information Value Date Recorded Sex Assigned at Not on file Legal Sex Female 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 Gender Identity Not on file Sexual Orientation Not on file documented as of this encounter Plan of Treatment Not on file documented as of this encounter Procedures Procedure Name Priority Date/Time Associated Diagnosis Comments CARDIOLOGY DOCUMENT SCAN Routine 01/25/2025 9:04 AM CDT CARDIOLOGY DOCUMENT SCAN Routine 01/24/2025 9:01 AM CDT documented in this encounter Results * Cardiology Document Scan (01/25/2025 9:04 AM CDT) Anatomical Region Laterality Modality Other Valorie Anderson MD CV CARDIAC SERVICES PROCEDU RES Final Result * Cardiology Document Scan (01/24/2025 9:01 AM CDT) Anatomical Region Laterality Modality Other us Pantera Muller MD CV CARDIAC SERVICES PROC EDURES Final Result documented in this encounter Visit Diagnoses Not on filedocumented in this encounter Care Teams Lithographic Proofer Relationship Specialty Start Date End Date Ngozi Oquendo M.T., MD [address] [place] [address] PCP - General Emergency Medicine 12/11/18 Chidi Reis MD [address] [place] [address] Internal Medicine 03/26/24 documented as of this encounter
--- OUTSIDE RECORDS SUMMARY | 2025-01-31 10:46 | XMS_ITS | Encounter Summary ---
Author Organization [facility] Address [address] [place] [address] Care Team Providers Care Accounting Representative Name Role Phone Hellen Jarquin PA-C Primary Care Provider [phone] Encounter Details Date Type Department Care Team (Late st Contact Info) Description 02/01/2023 Therapy Plan [facility] One Day Services [address] [place], [place] [id number] Wade Altamirano MD [address] [place] [id number] Social History Tobacco Use Types Packs/Day [...] often do you attend chur ch or scientology services? 1 to 4 times per year 09/16/2022 Do you belong to any clubs o r organizations such as synagogue groups, unions, fraternal or athletic groups, or [...] Recorded Patient Health Questionnaire-2 Score 0 01/25/2023 [facility] - [...] place to sleep or slept in a nursing home (including now)? No 11/16/2022 Comments No Sex and Gender Information Value Date Recorded Sex Assigned at Female 05/31/2024 8:39 PM HELIX COIL WINDER Legal Sex Female 10:55 PM HELIX COIL WINDER Gender Identity Female 05/31/2024 8:39 PM HELIX COIL WINDER Sexual Orientation Not on file documented as [...] 8:03 PM Mary Garcia RN Active * [place] Suicide Severity Rating Scale (Screener/Recent Self-Report) Question [...] Comment:Isolation period completed 11/15/2022 02/05/202303/25 7:41 AM HELIX COIL WINDER COVID-19 Rule Out 02/04/2023 02/04/2023 02/04/2023 8:49 PM CDT COVID-19 Rule Out 02/05/2023 02/05/2023 02/05/2023 7:41 PM CDT COVID-19 Rule Out 03/24/2023 03/24/2023 03/24/2023 3:57 PM HELIX COIL WINDER C. difficile 05/03/2023 05/03/2023 01/24/2024 7:56 AM CDT COVID-19 Rule Out 01/23/2024 01/23/2024 01/23/2024 6:41 PM CDT COVID-19 Rule Out 01/25/2024 01/25/2024 01/26/2024 2:22 PM CDT C. difficile 01/30/2024 01/30/2024 03/05/2024 12:0 2 PM CDT COVID-19 Rule Out 03/05/2024 03/05/2024 03/05/2024 2:05 PM CDT C. difficile 04/13/2024 04/13/2024 06/09/2024 9:04 AM HELIX COIL WINDER C. difficile 06/27/2024 06/27/2024 12/24/2024 7:55 PM CDT documented as of this encounter Care Teams Accounting Representative Relationship Specialty Start Date End Date Hellen Jarquin PA-C [address] [place] [address] [address] [place] [address] PCP - General PHYSICIAN STEEL CUTTER 08/18/22 documented as of this encounter
--- OUTSIDE RECORDS SUMMARY | 2025-01-31 10:46 | XMS_ITS | Encounter Summary ---
Author Organization [facility] Address [facility] [place] [address] Care Team Providers Care Support Services Tech Name Role Phone Hellen Jarquin PA-C Primary Care Provider [phone] Encounter Details Date Type Department Care Team (Late st Contact Info) Description 03/25/2024 [facility] Message Enc [facility] Medical Group Multispecialty [address] [phone] [place], [facility] Provider referral Social History Tobacco Use Types [...] from your doctor or pharmacy? Never 01/30/2024 [facility] Utilities Answer Date Recorded In the [...] week 01/30/2024 How often do you attend [facility] or yarsani services? More than 4 times per year 01/30/2024 Do you belong to any clubs o r organizations such as yazidi groups, unions, fraternal or athletic groups, or [...] Recorded Patient Health Questionnaire-2 Score 0 02/13/2024 [facility] - [...] place to sleep or slept in a custodial (including now)? No 03/24/2023 Housing Stability Vital Sign Answer Hussain e Recorded In the last 12 months, was t here a time when you were not able to pay the mortgage or rent on time? No 03/05/2024 In the past 12 months, how m any times have you moved where you were living? 1 03/05/2024 At any time in the past 12 m [facility], were you homeless or living in a custodial (including now)? No 03/05/2024 Comments No Sex and Gender Information Value Date Recorded Sex Assigned at Female 05/31/2024 8:39 PM WEDGER Legal Sex Female 10:55 PM WEDGER Gender Identity Female 05/31/2024 8:39 PM WEDGER Sexual Orientation Not on file documented as [...] and discharge planning Lifestyle No Helen Santos, HEAT CURER documented as of this encounter Visit Diagnoses Not on filedocumented in this encounter Additional Health Concerns Infection Onset Date Last Indicated Resolved Time C. difficile 04/13/2024 04/13/2024 06/09/2024 9:04 AM WEDGER C. difficile 06/27/2024 06/27/2024 12/24/2024 7:55 PM CDT documented as of this encounter Care Teams Support Services Tech Relationship Specialty Start Date End Date Hellen Jarquin PA-C [address] [place] [address] PCP - General PHYSICIAN TRAFFIC SIGN SUPERVISOR 08/18/22 documented as of this encounter
--- OUTSIDE RECORDS SUMMARY | 2025-01-31 10:46 | XMS_ITS | Clinical Summary ---
Author Organization [facility] Address [address] [place] [address] Care Team Providers Care Bottom Presser Name Role Phone Hellen Jarquin PA-C Primary Care Provider [phone] Allergies Active Allergy Reactions Criticality Noted Date [...] type 06/12/2023 Hyperglycemia due to diabetes mellitus ([facility]) 03/27/2023 Type 2 diabetes mellitus wit hout complication, unspecified whether jail insulin use ([facility]) 03/25/20232022 Diabetes mellitus due to und erlying condition with hyperglycemia ([facility]) 03/25/2023 Uncontrolled type 2 diabetes mellitus with hyperglycemia ([facility]) 03/24/2023 Clostridium difficile diarrhea 02/07/2023 C. difficile enteritis 11/15/2022 Recurrent Clostridium difficile diarrhea 023 Altered mental status 10/31/2022 Colitis 10/15/2022 Pulmonary embolism ([facility]) 09/30/2022 Physical deconditioning 09/08/2022 Diverticulitis 09/01/2022 Acute diverticulitis 08/31/2022 Knee pain, acute 12/05/2018 Hypercholesteremia Diabetes mellitus ([facility]) History of stroke Resolved Problems Problem Noted [...] from your doctor or pharmacy? Never 04/16/2024 [facility] Utilities Answer Date Recorded In the past [...] week 04/16/2024 How often do you attend [facility] or pentecostalism services? More than 4 times per year 04/16/2024 Do you belong to any clubs o r organizations such as mu-ism groups, unions, fraternal or athletic groups, or [...] Recorded Patient Health Questionnaire-2 Score 0 08/04/2024 [facility] - Occupational [...] any time in the past 12 m [facility], were you homeless or living in a custodial (including now)? No 06/26/2024 Comments No Sex and Gender Information Value Date Recorded Sex Assigned at Female 05/31/2024 8:39 PM ESE TEACHER Legal Sex Female 10:55 PM ESE TEACHER Gender Identity Female 05/31/2024 8:39 PM ESE TEACHER Sexual Orientation Not on file Last Filed Vital Signs Vital Sign Reading Time Taken Comments Blood Pressure 123/79 07/01/2024 11:10 AM ESE TEACHER Pulse 119 07/01/2024 11:10 AM ESE TEACHER nurse notified Temperature 36.3 C (97.3 F) 07/01/2024 11:10 AM ESE TEACHER Respiratory Rate 18 07/01/2024 11:1 0 AM ESE TEACHER Oxygen Saturation 93% 07/01/2024 11: 10 AM ESE TEACHER Inhaled Oxygen Concentration - - Weight 75.5 kg (166 lb 7.2 oz) 07/01/2024 4:55 AM ESE TEACHER Height 160 cm (5' 3) 06/26/2024 3:39 PM ESE TEACHER Body Mass Index 29.48 06/26/2024 3:39 PM ESE TEACHER Plan of Treatment Health Maintenance Due Date [...] Td or Tdap) 05/31/2034 05/31/2024 PHQ-2 (Physician [facility]) Completed 08/04/2024 Meningococcal B Vaccine Aged Out [...] and discharge planning Lifestyle No Helen Santos, CANDY DEPARTMENT MANAGERchief analytics officer Devices Implanted Type Area Transportation Aide Device Identifier Shelf Expiration Date Model / Serial / Lot 1.5 6 Hole Plate Implanted:Qty: 1 on 06/09/2024 by Vishnu Olsen, DO at [facility] Right: Hand DEPUY SYNTHES .003 / / Description:Implanted to fou rth metacarpal 1.5 Cortex Screw 11mm Implanted:Qty: 2 on 06/09/2024 by Vishnu Olsen DO at [facility] Right: Hand DEPUY SYNTHES .111 / / Description:Implanted to fou rth metacarpal 1.5 Cortex Screw 12mm Implanted:Qty: 1 on 06/09/2024 by Vishnu Olsen DO at [facility] Right: Hand DEPUY SYNTHES .112 / / Description:Implanted to fou rth metacarpal 1.5 Cortex Screw 10mm Implanted:Qty: 1 on 06/09/2024 by Vishnu Olsen DO at [facility] Right: Hand DEPUY SYNTHES .110 / / Description:Implanted to fou rth metacarpal 1.5 Cortex Screw 9mm Implanted:Qty: 1 on 06/09/2024 by Vishnu Olsen DO at [facility] Right: Hand DEPUY SYNTHES .109 / / Description:Implanted to fou rth metacarpal 1.5 Locking Screw 14mm Implanted:Qty: 1 on 06/09/2024 by Vishnu Olsen DO at [facility] Right: Hand DEPUY SYNTHES .014 / / Description:Implanted to fou rth metacarpal Explanted Type Area Transportation Aide Device Identifier Shelf Expiration Date Model / Serial / Lot 1.5 Cortex Screw 12mm Explanted:Qty: 1 on 06/09/2024 by Vishnu Olsen DO at [facility] Right: Hand DEPUY SYNTHES .112 / / Description:Fourth metacarpa l Procedures Procedure Name Priority Date/Time Associated Diagnosis Comments HEMOGLOBIN, GLYCOSYLATED STAT 05/03/2024 2:00 PM ESE TEACHER LIPID PANEL Routine 01/26/2024 4:30 AM CDT from Last 3 Months or Most Recently Relevant to Health Maintenance Results * (ABNORMAL) HEMOGLOBIN, GLYCOSYLATED (05/03/2024 2:00 PM ESE TEACHER) HGB A1C 10.0(H) <5.7 % 05/03/2024 2:56 PM ESE TEACHER [facility] Comment: INCREASED RISK OF DIABETES <5.7% NON-DIABETES 5.7-6.4% INCREASED RISK FOR FUTURE DIABETES > OR = 6.5 CONSISTENT WITH DIABETES STANDARDS OF MEDICAL CARE IN DIABETES-2010 DIABETES CARE, 33(SUPP 1): S1-S61,2010 ESTIMATED AVG GLUCOSE 240 mg/dL 05/03/2024 2:56 PM ESE TEACHER [facility] 05/03/2024 2:00 PM ESE TEACHER Deepa Stein NP LABORATORY Final Resul t [facility] [address] [place] [address], * LIPID PANEL (01/26/2024 4:30 AM CDT) CHOLESTEROL 133 <200.0 MG/DL 01/26/2024 5:46 AM CDT [facility] TRIGLYCERIDES 122 <150 MG/DL 01/26/2024 5:46 AM CDT [facility] HDL 51 >40.0 MG/DL 01/26/2024 5:46 AM CDT [facility] LDL (CALCULATED) 58 <100 MG/DL 01/26/20 5:46 AM CDT [facility] NON HDL CHOLESTEROL 82 <130 MG/DL 01/25 5:46 AM CDT [facility] CHOL/HDL RATIO 2.6 0.0 - 4.5 01/26/2024 5:46 AM CDT [facility] VLDL CALCULATION 24 5 - 55 MG/DL 01/26/2024 5:46 AM CDT [facility] LIPID INTERPRETATION 01/26/2024 5:46 AM CDT [facility] Comment: NIH CONCENSUS REPORT RECOMMENDATIONS: ADULT CHILD LOW RISK: CHOLESTEROL <200 <170 TRIGLYCERIDE <150 --- HDL >=60 --- LDL <100 <110 BORDERLINE: CHOLESTEROL 200-239 170-199 TRIGLYCERIDE 150-199 --- HDL 40-59 --- LDL 100-159 110-129 HIGH RISK: CHOLESTEROL >=240 >=200 TRIGLYCERIDE >=200 --- HDL <40 --- LDL >=160 >=130 01/26/2024 4:30 AM CDT Kathi Royal MD LABORATORY Final Result [facility] [address] [place] [address], from Last 3 Months or Most Recently Relevant to Health Maintenance Insurance [facility] MEDICAID Advance Directives Documents on File Type Date Recorded Patient Slash Trimmer Expl anation DNR (Do Not Resuscitate) Documentation [...] 6:01 PM 04/16/2024 1:44 PM Care Teams Bottom Presser Relationship Specialty Start Date End Date Hellen Jarquin PA-C [address] [place] [address] [address] [place] [address] PCP - General PHYSICIAN HOUSE WIRER 08/18/22
--- OUTSIDE RECORDS SUMMARY | 2025-01-31 10:46 | XMS_ITS | Encounter Summary ---
Author Organization [facility] Healthcare Address [address] [place] [address] Care Team Providers Care Produce Assistant Name Role Phone Ngozi Oquendo M.T., MD Primary Care Provider [phone] Chidi Reis MD Unavailable [phone] Encounter Details Date Type Department Care Team (Late st Contact Info) Description 01/28/2025 Orders Only [facility] Medical Group Cardiology [address] [place] [address] Drea Mccrary, LIA [address] [place] [address] Social History Tobacco Use Types Packs/Day Years Used Date Smoking Tobacco: Never Smokeless Tobacco: Never Alcohol Use Standard Drinks/Week Comments Yes 0 (1 standard drink = 0.6 oz pur e alcohol) socially Comments No Sex and Gender Information Value Date Recorded Sex Assigned at Not on file Legal Sex Female 1:43 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 Gender Identity Not on file Sexual Orientation Not on file documented as of this encounter Plan of Treatment Not on file documented as of this encounter Procedures Procedure Name Priority Date/Time Associated Diagnosis Comments CARDIOLOGY DOCUMENT SCAN Routine 025 11:04 AM CDT documented in this encounter Results * Cardiology Document Scan (01/27/2025 11:04 AM CDT) Anatomical Region Laterality Modality Other Drea Mccrary NP CV CARDIAC SERVICE S PROCEDURES Final Result documented in this encounter Visit Diagnoses Not on filedocumented in this encounter Care Teams Produce Assistant Relationship Specialty Start Date End Date Ngozi Oquendo M.T., MD [address] [place] [id number] PCP - General Emergency Medicine 12/11/18 Chidi Reis MD [address] [place] [address] Internal Medicine 03/26/24 documented as of this encounter
--- OUTSIDE RECORDS SUMMARY | 2025-01-31 10:46 | XMS_ITS | Clinical Summary ---
Author Organization [facility] Care Team Providers Care Account Services Associate Name Role Phone Unavailable Primary Care Provider [...]
--- OUTSIDE RECORDS SUMMARY | 2025-01-31 10:46 | XMS_ITS | Clinical Summary ---
Author Organization [facility] Medical Office Building [facility] Address [address] [place] [address] Care Team Providers Care Decating Machine Operator Name Role Phone Ngozi Oquendo M.T., MD Primary Care Provider [phone] Chidi Reis MD Unavailable [phone] Allergies Active Allergy Reactions Criticality Noted Date [...] Diabetes mellitus 11/05/2012 Overview (08/10/2016): Diabetes mellitus Encounters Date Type Department Care Team Description 01/28/2025 Orders Only [facility] Medical [facility] Cardiology [address] [place] [phone] Drea Mccrary NP 01/26/2025 Orders Only [facility] Cardiology [address] [facility] [address] [place] [phone] Pantera Muller MD 01/22/2025 Telephone [facility] Cardiology [address] [facility] [address] [place] [phone] Drea Mccrary NP 01/20/2025 Orders Only [facility] Cardiology [address] [facility] [address] [place] [phone] Valorie Anderson MD 01/18/2025 Orders Only [facility] Cardiology [address] [facility] [address] [place] [phone] Omer Rios MD 01/18/2025 Telephone [facility] Cardiology [address] [facility] [address] [place] [phone] Omer Rios MD 01/14/2025 Orders Only [facility] Information Management [address] [place] [address] Scanning, Provider from Last 3 Months Surgical History Surgery Date Site/Laterality Comments OTHER [...] from around heart, 200cc OTHER SURGICAL HISTORY 1965 : 2 hr labor OTHER SURGICAL HISTORY 1965 : 2 hr labor Medical History Medical History Date Comments Diabetes mellitus Diabetes Type 2 diabetes mellitus Diabete s type 2 Hx Other Medical 1964 ; Outc ome: 6 lb(s) 12 oz Female Hx Other Medical 1965 ; Outc ome: 7 lb(s) 2 oz Male Diabetes 2010 COPD (chronic obstructive pu lmonary disease) 2017 Family History Medical History Relation Name Comments [...] on file Legal Sex Female 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 Gender Identity Not on file Sexual Orientation [...] 12/11/2018 10:40 AM CDT Plan of Treatment Health Maintenance Due Date Last Done Comments Albumin Creatinine Ratio, Urine 1944 Depression Screening 1944 Fall Risk Assessment 1944 Hemoglobin A1C 1944 Osteoporosis Screening-Bone Density Scan 1944 eGFR 1944 Dilated Eye Exam 1944 Foot Exam 1944 Lipid Panel 1944 DTaP/Tdap/Td Vaccine (1 - Tdap) 07/10/1955 Hepatitis B Screening 1962 Pneumococcal vaccine 65+ (1 of 2 - PCV) 07/10/1963 Zoster Vaccine (1 of 2) 1994 Well Visit 65+ 2009 Influenza Vaccine (#1) 2025 Procedures Procedure Name Priority Date/Time Associated Diagnosis Comments CARDIOLOGY DOCUMENT SCAN Routine 025 11:04 AM CDT CARDIOLOGY DOCUMENT SCAN Routine 01/25/2025 9:04 AM CDT CARDIOLOGY DOCUMENT SCAN Routine 01/24/2025 9:01 AM CDT CARDIOLOGY DOCUMENT SCAN Routine 01/18/2025 3:18 PM CDT CARDIOLOGY DOCUMENT SCAN Routine 025 12:29 PM CDT CARDIOLOGY DOCUMENT SCAN Routine 025 12:26 PM CDT CARDIOLOGY DOCUMENT SCAN Routine 025 12:22 PM CDT CARDIOLOGY DOCUMENT SCAN 01/14/2025 from Last 3 Months Results * Cardiology Document Scan (01/27/2025 11:04 AM CDT) Anatomical Region Laterality Modality Other Drea Mccrary NP CV CARDIAC SERVICE S PROCEDURES Final Result * Cardiology Document Scan (01/25/2025 9:04 AM CDT) Anatomical Region Laterality Modality Other Valorie Anderson MD CV CARDIAC SERVICES PROCEDU RES Final Result * Cardiology Document Scan (01/24/2025 9:01 AM CDT) Anatomical Region Laterality Modality Other Pantera Muller MD CV CARDIAC SERVICES PROC EDURES Final Result * Cardiology Document Scan (01/18/2025 3:18 PM CDT) Anatomical Region Laterality Modality Other Valorie Anderson MD CV CARDIAC SERVICES PROCEDU RES Final Result * Cardiology Document Scan (01/17/2025 12:29 PM CDT) Anatomical Region Laterality Modality Other Adam Brown MD CV CARDIAC SERVICES PROCE DURES Final Result * Cardiology Document Scan (01/16/2025 12:26 PM CDT) Anatomical Region Laterality Modality Other Adam Brown MD CV CARDIAC SERVICES PROCE DURES Final Result * Cardiology Document Scan (01/15/2025 12:22 PM CDT) Anatomical Region Laterality Modality Other us Omer Rios MD CV CARDIAC SERVICES PROCEDURES F inal Result * Cardiology Document Scan (01/14/2025) Anatomical Region Laterality Modality Other us Provider Scanning CV CARDIAC SERVICES PROCEDURES Final Result from Last 3 Months Insurance MEDICARE [facility] MEDICARE SUPPLEMENT INSURANCE [facility] MEDICARE [facility] Address: [address] [address] [place] [address] [employer] [facility] MEDICARE [facility] Address: [address] [address] [place] [address] Advance Directives For more information, please contact: [phone] * Full Code (Latest Code Status on File) Date Activated Date Inactivated Comments 02/09/2023 6:04 AM Care Teams Decating Machine Operator Relationship Specialty Start Date End Date Ngozi Oquendo M.T., MD [address] [place] [id number] PCP - General Emergency Medicine 12/11/18 Chidi Reis MD [address] [place] [address] Internal Medicine 03/26/24
[2025-01-31] MEDS: CEFEPIME 2 GM in SODIUM CHLORIDE 0.9% IV 50 ML 100 ML IVPB ×2 (11:43→21:33)
[2025-01-31] MEDS: VENLAFAXINE HCL XR 75 MG CAP.ER.24H 150 MG PO (11:44)
[2025-01-31] MEDS: guaiFENesin 12 HR 600 MG TABCR 1200 MG PO ×2 (11:44→21:33)
[2025-01-31] MEDS: NYSTATIN 100,000 UNITS/ML SUSP 5 ML ORAL.SUSP PO ×4 (11:44→21:35)
[2025-01-31] MEDS: EMPAGLIFLOZIN 10 MG TABLET PO (11:44)
[2025-01-31] MEDS: CLOPIDOGREL BISULFATE 75 MG TABLET PO (11:44)
[2025-01-31] MEDS: BENZONATATE 100 MG CAPSULE PO ×2 (11:44→18:38)
[2025-01-31] MEDS: APIXABAN 5 MG TABLET PO ×2 (11:45→21:33)
[2025-01-31] MEDS: METOPROLOL SUCCINATE EXT REL 12.5 MG TABCR PO (11:45)
[2025-01-31] MEDS: FLUTICASONE PROPIONATE 0.05% NA SPR 16 GM BTL (*BKC) 1 SPRAY NASAL (11:48)
--- NOTE | 2025-01-31 15:11 | PCRCNOTE ---
Window of time for administration has passed. See next scheduled administration.
--- NOTE | 2025-01-31 16:07 | P.PNIM_ITS ---
Progress Note: A&P Assessment and Plan (1) ST elevation (STEMI) myocardial infarction: Code(s): I21.3 - ST elevation (STEMI) myocardial infarction of unspecified site Status: Acute (2) Acute systolic (congestive) heart failure: Code(s): I50.21 - Acute systolic (congestive) heart failure Status: Acute (3) Cough: Code(s): R05.9 - Cough, unspecified Status: Acute (4) Ischemic cardiomyopathy: Code(s): I25.5 - Ischemic cardiomyopathy Status: Acute (5) Paroxysmal atrial fibrillation: Code(s): I48.0 - Paroxysmal atrial fibrillation Status: Acute (6) Diabetes: Qualifiers: Diabetes mellitus complication status: without complication Diabetes mellitus 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 Diabetes mellitus type: type 2 Qualified Code(s): E11.9 - Type 2 diabetes mellitus without complications; 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 STEMI - She was found to have a ST-elevation myocardial infarction and was taken to the [facility] lab[facility] that day. She had a PCI to the LAD with 1 stent placed. Patient is allergic to aspirin. She was started on ticagrelor, carvedilol, lisinopril, rosuvastatin. On 01/15/2025 around noon the patient had increased ST elevation in leads V1 and V2, Dr. Rios was concerned about a possible aneurysm with plan to continue with current medical management at that time however if the patient complains of chest pain, has decreased oxygen saturations or decreasing her blood pressure, Dr. 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 Continue aggressive medical management with Crestor, Plavix, Empagliflozin, Top rol XL. Losartan stopped by cardiology due to cough Acute systolic CHF/ischemic CMP - Chest x-ray with the findings of CHF. Echo with severe cardiomyopathy with EF 20-25%. Patient started on diuresis with IV Lasix. She is on Toprol XL and Empagliflozin. Blood pressure limiting up titration of these medications. DNR code status and refused LifeVest initally however now agreeable and has been fitted. BNP 5790. Lasix 40mg IV once given 01/29 Repeat TTE as outpatient basis. PNA - Repeat Chest x-ray showed findings of respiratory bronchiolitis and was treated with Rocephin/doxycycline/Ceftin (01/17->01/23). Sputum culture 01/17 positive with Haemophilus influenzae. With penicillin allergy. Prednisone given and finished 5 days on 01/26. Repeat chest x-ray 01/25 with mild interstitial edema but CT chest 01/27 showing bibasilar PNA. Bedside swallow okay. Viral studies ordered and positive for enterovirus. ID consulted and Cefepime started 01/28. Repeat sputum Cx pending. Repeat MRSA screen negative. Urien for Strep and legionella Ag negative. Continues to improve. WBC slowly trending down. Continue cefepime. Monitor WBC. Continue neb treatments. Pulmicort stopped. Tessalon pearls cut back; remains on Mucinex. Decrease dariel frequency. AFib - Patient on anticoagulation for paroxysmal atrial fibrillation which will be continued. Patient intolerant to aspirin given facial swelling with potential compromise respiratory system and hence on Eliquis and Plavix. EKG yesterday showing NSR Heart rate controlled. Continue Toprol XL. DM - Takes Basaglar and linagliptin at home. A1c 10.3%. Glucose reasonably well controlled. No lows but glucose was 83 one morning so Lantus dose decreased Continue AccuCheks covering with sliding scale. Hypoglycemia protocol available as needed. Continue to monitor. Depression/Anxiety - Mood stable. Continue Effexor. HLD - LFTs stable. Continue Crestor. Thrush - probably thrush since on inhaled steroids but consider viral stomatitis . No vermicular lesions. Added nystatin and stopped pulmicort. Symptoms better. DVT profile: Apixaban Code status - DNR PT OT recommend home health which has been arranged with the help of care coor dination. Subjective Date/time seen: 01/31/25 16:07 Interval history: 79 year old female with past medical history of anxiety, depression, TIA, hypertension, acid reflux, diabetes and arthritis presented the ED on 01/14/2025 in the early hours with complains of chest pain. Feels tired today. Cough is 'getting better each day'. Mouth sores resolving. Eating okay. Walking in [place] Exam Narrative: AF 96.9 96/69 93 17 94% ra Gen - NARD Chest - bibasilar crackles, nml RR CV - RRR S1/S2 Abd - Soft, NT/ND, Positive BS Ext - No pedal edema Neuro - Alert and appropriate Psych - Nml mood and affect Skin - Warm and dry Objective Data Vital Signs Vital Signs: Vital Signs - 24 hr 01/30/25 20:13 01/30/25 20:13 01/30/25 20:21 Temperature Pulse Rate 86 93 Respiratory Rate 18 18 Blood Pressure Pulse Oximetry 92 Oxygen Delivery Room Air 01/30/25 20:25 01/31/25 01:37 01/31/25 01:44 Temperature 96.6 F L Pulse Rate 85 85 83 Respiratory Rate 20 18 18 Blood Pressure 102/49 L Pulse Oximetry 93 Oxygen Delivery 01/31/25 04:55 01/31/25 08:24 01/31/25 08:35 Temperature 96.5 F L Pulse Rate 81 85 89 Respiratory Rate 20 16 16 Blood Pressure 118/68 Pulse Oximetry 96 Oxygen Delivery 01/31/25 11:45 01/31/25 14:00 Temperature 96.9 F L Pulse Rate 77 93 Respiratory Rate 17 Blood Pressure 96/69 L Pulse Oximetry 94 Oxygen Delivery Intake/Output Intake/Output: Intake & Output 01/28/25 01/29/25 01/30/25 01/31/25 23:59 23:59 23:59 23:59 Intake Total 1090 1750 1180 1030 Balance 1090 1750 1180 1030 Meds/Results Medications: Active Medications Generic Name Dose Route Start Last Admin Trade Name Freq PRN Reason Stop Dose Admin Acetaminophen 650 mg 01/21/25 16:22 01/21/25 16:49 Acetaminophen 325 Mg Tablet PO 650 mg Q6H PRN Administration Mild Pain (1-3) or Fever Apixaban 5 mg 01/15/25 10:55 01/31/25 11:45 Apixaban 5 Mg Tablet PO 5 mg Q12HR DOYLE Administration Benzonatate 100 mg 01/30/25 18:35 01/31/25 11:44 Benzonatate 100 Mg Capsule PO 100 mg BID DOYLE Administration Clopidogrel Bisulfate 75 mg 01/16/25 09:00 01/31/25 11:44 Clopidogrel Bisulfate 75 Mg Tablet PO 75 mg DAILY DOYLE Administration Dextrose 12.5 gm 01/14/25 08:08 Dextrose 50% 25 Gm/50 Ml Syringe IV PUSH PRN PRN Hypoglycemia Protocol Empagliflozin 10 mg 01/19/25 09:00 01/31/25 11:44 Empagliflozin 10 Mg Tablet PO 10 mg DAILY DOYLE Administration Fluticasone Propionate 1 spray 01/15/25 21:00 01/31/25 11:48 Fluticasone Propionate 0.05% Na Spr 16 Gm Btl (*Bkc) NASAL 1 spray Q12HR DOYLE Administration Glucagon 1 mg 01/14/25 08:08 Glucagon For Inj 1 Mg Vial IM PRN PRN Hypoglycemia Protocol Glucose 15 gm 01/14/25 08:08 Glucose Oral Gel 15 Gm Of Glucse In 37.5 Gm Tube PO PRN PRN Hypoglycemia Protocol Guaifenesin 1,200 mg 01/23/25 21:00 01/31/25 11:44 Guaifenesin 12 Hr 600 Mg Tabcr PO 1,200 mg Q12HR DOYLE Administration Guaifenesin/Dextromethorphan 10 ml 01/14/25 09:03 01/25/25 08:31 Guaifenesin/Dextromethorphan 10 Ml Udc PO 10 ml Q4H PRN Administration Cough Dextrose 1,000 mls @ 100 mls/hr 01/14/25 08:08 Dextrose 5% 1,000 Ml IVPB PRN PRN Hypoglycemia Protocol Cefepime HCl 2 gm/ Sodium 50 mls @ 100 mls/hr 01/28/25 13:05 01/31/25 11:43 Chloride IVPB 100 mls/hr Q12HR DOYLE Administration Insulin Aspart 2 - 4 units 01/14/25 21:00 01/30/25 20:58 Insulin Aspart (*Bkc) 100 Units/Ml SUB-Q 2 units HS DOYLE Administration Protocol Insulin Aspart 4 - 8 units 01/14/25 12:00 01/31/25 12:11 Insulin Aspart (*Bkc) 100 Units/Ml SUB-Q Not Given TIDWM DOYLE Protocol Insulin Glargine 33 units 01/30/25 21:00 01/30/25 20:57 Insulin Glargine (*Bkc) 100 Units/Ml SUB-Q 33 units HS DOYLE Administration Ipratropium [place] 0.5 mg 01/21/25 20:00 01/31/25 15:10 Ipratropium Br 0.02% Inh Soln 0.5 Mg/2.5 Ml Vial INHALATION Not Given Q6HRT DOYLE Levalbuterol HCl 0.63 mg 01/21/25 20:00 01/31/25 15:10 Levalbuterol Neb 1.25 Mg/3 Ml INHALATION Not Given Q6HRT DOYLE Metoprolol Succinate 12.5 mg 01/23/25 09:00 01/31/25 11:45 Metoprolol Succinate Ext Rel 12.5 Mg Tabcr PO 12.5 mg QAM DOYLE Administration Nystatin 5 ml 01/29/25 17:00 01/31/25 15:09 Nystatin 100,000 Units/Ml Susp 5 Ml Oral.Susp PO 5 ml QID DOYLE Administration Ondansetron HCl 4 mg 01/14/25 09:03 01/16/25 12:27 Ondansetron Inj 4 Mg/2 Ml Vial IV PUSH 4 mg Q6H PRN Administration Nausea And Vomiting Rosuvastatin Calcium 20 mg 01/15/25 21:00 01/30/25 20:59 Rosuvastatin 20 Mg Tablet PO 20 mg QHS DOYLE Administration Sitagliptin Phosphate 50 mg 01/22/25 09:00 01/31/25 11:45 Sitagliptin Phosphate 50 Mg Tablet PO 50 mg QAM DOYLE Administration Sodium Chloride 1 spray 01/16/25 14:19 01/17/25 21:07 Saline 0.65% Frank Soln 44 Ml Btl NASAL 1 spray Q6HR PRN Administration Congestion Venlafaxine HCl 150 mg 01/15/25 09:00 01/31/25 11:44 Venlafaxine Hcl Xr 75 Mg Cap.Er.24h PO 150 mg DAILY DOYLE Administration Radiology Results: ITS Impressions Chest/Abdomen/Pelvis CTA 01/14/25 08:21 IMPRESSION: 1. Normal caliber aorta with no dissection. No acute cardiopulmonary disease or acute intra-abdominal/pelvic process. 2. Diverticulosis. Abdomen X-Ray 01/16/25 13:09 Impression: 1. No acute abnormality. Chest X-Ray 01/25/25 12:42 IMPRESSION: 1. Interstitial opacities in both lungs. Differential includes interstitial edema, interstitial pneumonia or chronic interstitial changes. If symptoms persist or worsen, consider a short-term follow-up study or additional imaging for further assessment. Chest CT 01/27/25 21:25 IMPRESSION: 1. Patchy bilateral groundglass opacities have developed since prior study, compatible with pneumonia. 2: Small bilateral pleural effusions are new. Labs Labs: Laboratory Results - last 24 hr 01/30/25 01/30/25 01/31/25 17:07 20:30 06:07 WBC RBC Hgb Hct MCV MCH MCHC RDW Plt Count MPV Immature Gran % (Auto) Neut % (Auto) Lymph % (Auto) [place] % (Auto) Eos % (Auto) Baso % (Auto) Lymph # (Auto) [place] # (Auto) Eos # (Auto) Baso # (Auto) Abs Immat Gran (auto) Absolute Neuts (auto) Absolute Nucleated RBC Nucleated RBC % Sodium 136 L Potassium 3.9 Chloride 108 H Carbon Dioxide 22 Anion Gap 6 BUN 23 H Creatinine 0.92 Estim Creat Clear Calc 44 Estimated GFR 59 Glucose 90 POC Capillary Glucose 189 H 231 H Calcium 8.6 Magnesium 1.9 01/31/25 01/31/25 01/31/25 06:12 07:43 11:44 WBC 11.6 H RBC 4.46 Hgb 13.7 Hct 44.0 MCV 98.7 MCH 30.7 MCHC 31.1 L RDW 13.2 Plt Count 281 MPV 9.5 Immature Gran % (Auto) 0.8 H Neut % (Auto) 63.5 Lymph % (Auto) 20.7 [place] % (Auto) 11.1 H Eos % (Auto) 3.2 Baso % (Auto) 0.7 Lymph # (Auto) 2.40 [place] # (Auto) 1.3 H Eos # (Auto) 0.4 H Baso # (Auto) 0.1 Abs Immat Gran (auto) 0.09 H Absolute Neuts (auto) 7.4 H Absolute Nucleated RBC 0.000 Nucleated RBC % 0.0 Sodium Potassium Chloride Carbon Dioxide Anion Gap BUN Creatinine Estim Creat Clear Calc Estimated GFR Glucose POC Capillary Glucose 99 141 H Calcium Magnesium
[2025-01-31] MEDS: INSULIN GLARGINE (*BKC) 100 UNITS/ML 33 UNITS SUB-Q (21:30)
[2025-01-31] MEDS: ROSUVASTATIN 20 MG TABLET PO (21:33)
--- NOTE | 2025-01-31 22:08 | PCRCNOTE ---
Window of time for administration has passed. See next scheduled administration.
[2025-02-01] VITALS (7 sets, daily range): BP systolic 104–109; BP diastolic 64–75; PULSE 70–88; RESP 18–20; TEMP 36.1–36.3; O2SAT 92–100
[2025-02-01 06:38] LABS: Hematocrit 44.4 % (37.0-47.0); Hemoglobin 13.8 g/dL (12.0-15.0); Immature Granulocyte Percent A 0.9 % (0-0.5); Lymphocytes Absolute Auto 2.40 K/mm3 (0.9-3.2); Mean Corpuscular HGB Conc 31.1 g/dl (32-36); Mean Corpuscular Hemoglobin 30.1 pg (26-34); Mean Corpuscular Volume 96.7 fl (80-100); Nucleated Red Blood Cells Absolute Auto 0.000 K/mm3 (0.0-0.012); Nucleated Red Blood Cells Perc 0.0 % (0.0-0.2); Platelet Count Result 278 k/mm3 (150-375); Red Blood Count 4.59 M/mm3 (4.2-5.4); White Blood Count 11.4 K/mm3 (4.5-10.0)
[2025-02-01 07:10] LABS: Anion Gap 8 mmol/L (4-12); Blood Urea Nitrogen 21 mg/dL (7-17); Calcium 8.7 mg/dL (8.4-10.2); Carbon Dioxide 23 mmol/L (22-30); Chloride 105 mmol/L (98-107); Estimated CRCL calculation 43 ml/min; Estimated Glomerular Filt Rate 57; Glucose 105 mg/dL (65-110); Potassium 4.2 mmol/L (3.4-5.0); Sodium 136 mmol/L (137-145)
[2025-02-01] MEDS: IPRATROPIUM BR 0.02% INH SOLN 0.5 MG/2.5 ML VIAL INHALATION ×2 (07:37→13:22)
[2025-02-01] MEDS: NYSTATIN 100,000 UNITS/ML SUSP 5 ML ORAL.SUSP PO ×2 (10:45→14:52)
[2025-02-01] MEDS: EMPAGLIFLOZIN 10 MG TABLET PO (10:46)
[2025-02-01] MEDS: CLOPIDOGREL BISULFATE 75 MG TABLET PO (10:46)
[2025-02-01] MEDS: VENLAFAXINE HCL XR 75 MG CAP.ER.24H 150 MG PO (10:46)
[2025-02-01] MEDS: guaiFENesin 12 HR 600 MG TABCR 1200 MG PO (10:47)
[2025-02-01] MEDS: APIXABAN 5 MG TABLET PO (10:47)
[2025-02-01] MEDS: METOPROLOL SUCCINATE EXT REL 12.5 MG TABCR PO (10:47)
[2025-02-01] MEDS: CEFEPIME 2 GM in SODIUM CHLORIDE 0.9% IV 50 ML 100 ML IVPB (10:49)
--- NOTE | 2025-02-01 11:44 | WPDINFPN2 ---
Progress Note: A&P Assessment and Plan (1) Ground glass opacity present on imaging of lung: Code(s): R91.8 - Other nonspecific abnormal finding of lung field Status: Acute Assessment and Plan: -Evolving HCAP vs. atypical pneumonia vs. pulmonary edema -Nasal MRSA PCR negative -May be due to rhinovirus infection (2) Acute systolic (congestive) heart failure: Code(s): I50.21 - Acute systolic (congestive) heart failure Status: Acute Assessment and Plan: -Management as per cardiology service (3) Ischemic cardiomyopathy: Code(s): I25.5 - Ischemic cardiomyopathy Status: Acute Assessment and Plan: -Management as per cardiology service (4) Cough: Code(s): R05.9 - Cough, unspecified Status: Acute Assessment and Plan: -Likely due to pneumonia and some element of fluid overload (5) ST elevation (STEMI) myocardial infarction: Code(s): I21.3 - ST elevation (STEMI) myocardial infarction of unspecified site Status: Acute Assessment and Plan: -STEMI on admission -Management as per Cardiology service (6) Rhinovirus infection: Code(s): B34.8 - Other viral infections of unspecified site Status: Acute Assessment and Plan: -No specific treatment for rhinovirus -Continue supportive measures Plan -De-escalate Cefepime day 5 to Cefuroxime PO x 2-3 days -Continue respiratory hygiene measures -Discharge planning per primary service Antimicrobial plan of care discussed with patient. All questions answered. Patient was seen via video telehealth consultation with the assistance of staff. Chart, data, and patient independently reviewed. Patient was located at [facility] while I was located in my [place] office. Received verbal consent from patient. Subjective Date/time seen: 02/01/25 11:44 Interval history: Patient afebrile. Her breathing has improved overall. She has less shortness of breath. Sputum culture grew respiratory pilar. Respiratory PCR panel positive for Rhinovirus/Enterovirus. Review of Systems Review of Systems: All systems reviewed & are unremarkable except as noted in HPI and below Exam Narrative: Gen: A&Ox3, NAD Pulm:normal chest expansion, +cough with mild conversational dyspnea Abd:obese Ext: trace edema Derm: no rash Objective Data Vital Signs Vital Signs: Vital Signs - 24 hr 01/31/25 11:45 01/31/25 14:00 01/31/25 22:00 Temperature 96.9 F L 97.4 F L Pulse Rate 77 93 85 Respiratory Rate 17 16 Blood Pressure 96/69 L 103/65 Pulse Oximetry 94 93 Oxygen Delivery 02/01/25 06:00 02/01/25 07:38 02/01/25 07:38 Temperature 97.4 F L Pulse Rate 85 88 88 Respiratory Rate 18 20 20 Blood Pressure 109/75 Pulse Oximetry 100 92 Oxygen Delivery Room Air 02/01/25 07:53 02/01/25 08:00 02/01/25 10:47 Temperature Pulse Rate 86 86 Respiratory Rate 20 Blood Pressure Pulse Oximetry Oxygen Delivery Room Air Intake/Output Intake/Output: Intake & Output 01/29/25 01/30/25 01/31/25 02/01/25 23:59 23:59 23:59 23:59 Intake Total 1750 1180 1670 740 Balance 1750 1180 1670 740 Meds/Results Medications: Active Medications Generic Name Dose Route Start Last Admin Trade Name Freq PRN Reason Stop Dose Admin Acetaminophen 650 mg 01/21/25 16:22 01/21/25 16:49 Acetaminophen 325 Mg Tablet PO 650 mg Q6H PRN Administration Mild Pain (1-3) or Fever Apixaban 5 mg 01/15/25 10:55 02/01/25 10:47 Apixaban 5 Mg Tablet PO 5 mg Q12HR DOYLE Administration Benzonatate 100 mg 02/01/25 07:22 Benzonatate 100 Mg Capsule PO BID PRN Cough Clopidogrel Bisulfate 75 mg 01/16/25 09:00 02/01/25 10:46 Clopidogrel Bisulfate 75 Mg Tablet PO 75 mg DAILY DOYLE Administration Dextrose 12.5 gm 01/14/25 08:08 Dextrose 50% 25 Gm/50 Ml Syringe IV PUSH PRN PRN Hypoglycemia Protocol Empagliflozin 10 mg 01/19/25 09:00 02/01/25 10:46 Empagliflozin 10 Mg Tablet PO 10 mg DAILY DOYLE Administration Fluticasone Propionate 1 spray 01/15/25 21:00 02/01/25 10:59 Fluticasone Propionate 0.05% Na Spr 16 Gm Btl (*Bkc) NASAL Not Given Q12HR DOYLE Glucagon 1 mg 01/14/25 08:08 Glucagon For Inj 1 Mg Vial IM PRN PRN Hypoglycemia Protocol Glucose 15 gm 01/14/25 08:08 Glucose Oral Gel 15 Gm Of Glucse In 37.5 Gm Tube PO PRN PRN Hypoglycemia Protocol Guaifenesin 1,200 mg 01/23/25 21:00 02/01/25 10:47 Guaifenesin 12 Hr 600 Mg Tabcr PO 1,200 mg Q12HR DOYLE Administration Guaifenesin/Dextromethorphan 10 ml 01/14/25 09:03 01/25/25 08:31 Guaifenesin/Dextromethorphan 10 Ml Udc PO 10 ml Q4H PRN Administration Cough Dextrose 1,000 mls @ 100 mls/hr 01/14/25 08:08 Dextrose 5% 1,000 Ml IVPB PRN PRN Hypoglycemia Protocol Cefepime HCl 2 gm/ Sodium 50 mls @ 100 mls/hr 01/28/25 13:05 02/01/25 10:49 Chloride IVPB 100 mls/hr Q12HR DOYLE Administration Insulin Aspart 2 - 4 units 01/14/25 21:00 01/31/25 22:13 Insulin Aspart (*Bkc) 100 Units/Ml SUB-Q Not Given HS DOYLE Protocol Insulin Aspart 4 - 8 units 01/14/25 12:00 02/01/25 10:44 Insulin Aspart (*Bkc) 100 Units/Ml SUB-Q Not Given TIDWM [facility] Protocol Insulin Glargine 33 units 01/30/25 21:00 01/31/25 21:30 Insulin Glargine (*Bkc) 100 Units/Ml SUB-Q 33 units HS DOYLE Administration Ipratropium [place] 0.5 mg 01/31/25 20:00 02/01/25 07:37 Ipratropium Br 0.02% Inh Soln 0.5 Mg/2.5 Ml Vial INHALATION 0.5 mg [id number] DOYLE Administration Levalbuterol HCl 0.63 mg 01/31/25 20:00 02/01/25 07:37 Levalbuterol Neb 1.25 Mg/3 Ml INHALATION 0.63 mg [id number] DOYLE Administration Metoprolol Succinate 12.5 mg 01/23/25 09:00 02/01/25 10:47 Metoprolol Succinate Ext Rel 12.5 Mg Tabcr PO 12.5 mg QAM DOYLE Administration Nystatin 5 ml 01/29/25 17:00 02/01/25 10:45 Nystatin 100,000 Units/Ml Susp 5 Ml Oral.Susp PO 02/05/25 16:59 5 ml QID DOYLE Administration Ondansetron HCl 4 mg 01/14/25 09:03 01/16/25 12:27 Ondansetron Inj 4 Mg/2 Ml Vial IV PUSH 4 mg Q6H PRN Administration Nausea And Vomiting Rosuvastatin Calcium 20 mg 01/15/25 21:00 01/31/25 21:33 Rosuvastatin 20 Mg Tablet PO 20 mg QHS DOYLE Administration Sitagliptin Phosphate 50 mg 01/22/25 09:00 02/01/25 10:46 Sitagliptin Phosphate 50 Mg Tablet PO 50 mg QAM DOYLE Administration Sodium Chloride 1 spray 01/16/25 14:19 01/17/25 21:07 Saline 0.65% Frank Soln 44 Ml Btl NASAL 1 spray Q6HR PRN Administration Congestion Venlafaxine HCl 150 mg 01/15/25 09:00 02/01/25 10:46 Venlafaxine Hcl Xr 75 Mg Cap.Er.24h PO 150 mg DAILY DOYLE Administration Radiology Results: ITS Impressions Chest/Abdomen/Pelvis CTA 01/14/25 08:21 IMPRESSION: 1. Normal caliber aorta with no dissection. No acute cardiopulmonary disease or acute intra-abdominal/pelvic process. 2. Diverticulosis. Abdomen X-Ray 01/16/25 13:09 Impression: 1. No acute abnormality. Chest X-Ray 01/25/25 12:42 IMPRESSION: 1. Interstitial opacities in both lungs. Differential includes interstitial edema, interstitial pneumonia or chronic interstitial changes. If symptoms persist or worsen, consider a short-term follow-up study or additional imaging for further assessment. Chest CT 01/27/25 21:25 IMPRESSION: 1. Patchy bilateral groundglass opacities have developed since prior study, compatible with pneumonia. 2: Small bilateral pleural effusions are new. Labs Labs: Laboratory Results - last 24 hr 01/31/25 01/31/25 02/01/25 11:44 16:35 03:57 WBC RBC Hgb Hct MCV MCH MCHC RDW Plt Count MPV Immature Gran % (Auto) Neut % (Auto) Lymph % (Auto) [place] % (Auto) Eos % (Auto) Baso % (Auto) Lymph # (Auto) [place] # (Auto) Eos # (Auto) Baso # (Auto) Abs Immat Gran (auto) Absolute Neuts (auto) Absolute Nucleated RBC Nucleated RBC % Sodium Potassium Chloride Carbon Dioxide Anion Gap BUN Creatinine Estim Creat Clear Calc Estimated GFR Glucose POC Capillary Glucose 141 H 195 H 135 H Calcium 02/01/25 02/01/25 02/01/25 05:28 07:36 11:07 WBC 11.4 H RBC 4.59 Hgb 13.8 Hct 44.4 MCV 96.7 MCH 30.1 MCHC 31.1 L RDW 13.2 Plt Count 278 MPV 9.8 Immature Gran % (Auto) 0.9 H Neut % (Auto) 63.2 Lymph % (Auto) 21.0 [place] % (Auto) 11.3 H Eos % (Auto) 3.1 Baso % (Auto) 0.5 Lymph # (Auto) 2.40 [place] # (Auto) 1.3 H Eos # (Auto) 0.4 H Baso # (Auto) 0.1 Abs Immat Gran (auto) 0.10 H Absolute Neuts (auto) 7.2 H Absolute Nucleated RBC 0.000 Nucleated RBC % 0.0 Sodium 136 L Potassium 4.2 Chloride 105 Carbon Dioxide 23 Anion Gap 8 BUN 21 H Creatinine 0.95 Estim Creat Clear Calc 43 Estimated GFR 57 L Glucose 105 POC Capillary Glucose 103 167 H Calcium 8.7
--- NOTE | 2025-02-01 14:47 | PM.DS ---
DS: Admitting Diagnosis Discharge Date 02/01/25 Admitting Diagnosis Chest pain DS: Discharge Diagnosis Discharge Diagnosis (1) ST elevation (STEMI) myocardial infarction: Code(s): I21.3 - ST elevation (STEMI) myocardial infarction of unspecified site Status: Acute (2) Acute systolic (congestive) heart failure: Code(s): I50.21 - Acute systolic (congestive) heart failure Status: Acute (3) Pneumonia: Code(s): J18.9 - Pneumonia, unspecified organism Status: Acute (4) Cough: Code(s): R05.9 - Cough, unspecified Status: Acute (5) Ischemic cardiomyopathy: Code(s): I25.5 - Ischemic cardiomyopathy Status: Acute (6) Paroxysmal atrial fibrillation: Code(s): I48.0 - Paroxysmal atrial fibrillation Status: Acute (7) Diabetes: Qualifiers: Diabetes mellitus type: type 2 Diabetes mellitus assisted insulin use: with assisted use Diabetes mellitus complication status: without complication Qualified Code(s): E11.9 - Type 2 diabetes mellitus without complications; Z79.4 - detention (current) use of insulin Code(s): E11.9 - Type 2 diabetes mellitus without complications Status: Acute (8) Anxiety and depression: Code(s): F41.9 - Anxiety disorder, unspecified; F32.A - Depression, unspecified Status: Acute (9) Hyperlipidemia LDL goal <70: Code(s): E78.5 - Hyperlipidemia, unspecified Status: Acute (10) Thrush: Code(s): B37.0 - Candidal stomatitis Status: Acute (11) Rhinovirus infection: Code(s): B34.8 - Other viral infections of unspecified site Status: Acute DS: Summary Hospital Course Reason for hospitalization: 79yo female with anxiety, depression, TIA, hypertension, acid reflux, diabetes and arthritis presented the ED on 01/14/2025 in the early hours with complains of chest pain. Please see H&P for details. Hospital Course: The following issues were addressed during her hospital course STEMI - Patient was found to have a ST-elevation myocardial infarction and was taken to the production laborer that day. She had a PCI to the LAD with 1 stent placed. Patient is allergic to aspirin. She was started on ticagrelor, carvedilol, lisinopril, rosuvastatin. On 01/15/2025 around noon the patient had increased ST elevation in leads V1 and V2, there was concern for possible aneurysm but patient remained stable. She was changed to Plavix. We continued aggressive medical management with Crestor, Plavix, Empagliflozin, Toprol XL. Losartan stopped by cardiology due to cough Acute systolic CHF/ischemic CMP - Chest x-ray showing findings consistent with CHF. Echo with severe cardiomyopathy with EF 20-25%. Patient started on diuresis with IV Lasix. She was on Toprol XL and Empagliflozin. Blood pressure limiting up titration of these medications. DNR code status and refused LifeVest initially but now agreeable and has been fitted. BNP 5790. Lasix 40mg IV once given 01/29. Lasix off currently and remaining stable. Plan for repeat TTE as outpatient basis. PNA - CXR was repeated due to persistent cough with findings of respiratory bronchiolitis and was treated with Rocephin/doxycycline/Ceftin (01/17->01/23). Sputum culture 01/17 positive with Haemophilus influenzae. With penicillin allergy. Prednisone given and finished 5 days on 01/26. Off antibiotics and steroids, she continued to have course, harsh cough. CT chest 01/27 showing bibasilar PNA. Bedside swallow okay. Viral studies ordered and positive for enterovirus. ID consulted and Cefepime started 01/28. Repeat sputum Cx pending. Repeat MRSA screen negative. Urine for Strep and legionella Ag negative. Her symptoms continued to improve. WBC slowly trending down. She was transitioned to Ceftin. AFib - Patient is on anticoagulation for paroxysmal atrial fibrillation which was continued. Patient intolerant to aspirin given facial swelling with potential compromise respiratory system and hence on Eliquis and Plavix. EKG showing NSR Heart rate controlled. We continued Toprol XL. DM - Takes Basaglar and linagliptin at home. A1c 10.3%. Glucose reasonably well controlled. No lows but glucose was 83 one morning so Lantus dose decreased. She eats a lot of sweets at home. She was educated about limiting sugar use and monitoring her glucose at home and that she probably will need higher insulin doses if she does not follow a strict diabetic diet. Depression/Anxiety - Mood remained stable. We continued Effexor. HLD - LFTs stable. We continued Crestor. Thrush - probably thrush since she was on inhaled steroids. Added nystatin and stopped pulmicort. Symptoms better. She has been up ambulating with therapy. She feels much better. She is eager for discharge. Discharge instructions reviewed including side effects of medications. All questions answered. She overall did well and was able to be discharged home on 02/01/25. Status at Discharge Cognitive/behavioral status at discharge: stable Time Spent with Patient Time attestation: Total time spent providing and/or coordinating discharge services: 35 minutes Time spent: Greater than 30 minutes Exam Narrative: AF 97.0 104/64 81 20 92% ra Gen - NARD Chest - mild basilar rhonchi with good air exchange CV - RRR S1/S2 Abd - Soft, NT/ND, Positive BS Ext - No pedal edema Neuro - Alert and appropriate Psych - Nml mood and affect Skin - Warm and dry DS: Data Data Completed and Pending Labs on day of discharge: Labs from last 24 hours 02/01/25 02/01/25 02/01/25 11:07 07:36 05:28 WBC 11.4 H RBC 4.59 Hgb 13.8 Hct 44.4 MCV 96.7 MCH 30.1 MCHC 31.1 L RDW 13.2 Plt Count 278 MPV 9.8 Immature Gran % (Auto) 0.9 H Neut % (Auto) 63.2 Lymph % (Auto) 21.0 Grant % (Auto) 11.3 H Eos % (Auto) 3.1 Baso % (Auto) 0.5 Lymph # (Auto) 2.40 Grant # (Auto) 1.3 H Eos # (Auto) 0.4 H Baso # (Auto) 0.1 Abs Immat Gran (auto) 0.10 H Absolute Neuts (auto) 7.2 H Absolute Nucleated RBC 0.000 Nucleated RBC % 0.0 Sodium 136 L Potassium 4.2 Chloride 105 Carbon Dioxide 23 Anion Gap 8 BUN 21 H Creatinine 0.95 Estim Creat Clear Calc 43 Estimated GFR 57 L Glucose 105 POC Capillary Glucose 167 H 103 Calcium 8.7 02/01/25 01/31/25 03:57 16:35 WBC RBC Hgb Hct MCV MCH MCHC RDW Plt Count MPV Immature Gran % (Auto) Neut % (Auto) Lymph % (Auto) Grant % (Auto) Eos % (Auto) Baso % (Auto) Lymph # (Auto) Grant # (Auto) Eos # (Auto) Baso # (Auto) Abs Immat Gran (auto) Absolute Neuts (auto) Absolute Nucleated RBC Nucleated RBC % Sodium Potassium Chloride Carbon Dioxide Anion Gap BUN Creatinine Estim Creat Clear Calc Estimated GFR Glucose POC Capillary Glucose 135 H 195 H Calcium Preliminary micro results at discharge 01/28/25 14:15 Sputum Culture - Preliminary Sputum Discharge Plan Discharge Attending physician on discharge: Bjorn Quinn Consulting providers: Collin Gordon; Ramon Soto; Nirmal Izaguirre Discharging Clinician: Bjorn Quinn Anticipated Discharge Date/Time: 02/01/25 15:01 Patient Disposition: Home with Home Health Service Activity: as tolerated Diet: heart healthy and diabetic Discharge Instructions: Care Coordination : [facility] to follow patient after discharge. [facility] to call patient to set up admission appointment for PT/OT. [facility] [phone]. student loan counselor to fax discharge instructions to [facility] Continue to wear LifeVest at all times as instructed. Okay to remove for hygiene. Please check glucose before meals and before bed. Record and bring into your doctor for review. Check blood pressure 1 to 2 times a day. Record and bring into your doctor for review. Call your doctor if your blood pressure is greater than 180/110 or less than 90/45. Please complete your antibiotic course even if you are starting to feel well. Take precautions to avoid falls. Rise slowly from a lying or sitting position. Pause before standing or walking. Check daily morning weights after voiding. Call your doctor if you gain more than 3 lb in 2 days or 5 lb in 1 week. Contact your doctor or call 911 and come to the Emergency Room if you have any type of trauma, lightheadedness with standing or other worrisome symptoms. Avoid NSAIDs (ibuprofen, naproxen, Aleve). Tylenol is safe to take. Follow-up with your primary care provider in 1-2 weeks. Please call for appointment. Follow-up with Cardiology in 3-4 weeks. Please call for an appointment. Thank you for using [facility] for your health care needs. Patient Instructions: Antibiotic Form, Clopidogrel (By mouth), Apixaban (By mouth), Heart Healthy Diet (DC), Acute Coronary Syndrome (DC), Heart Catheterization (DC) Patient Language: [place] Sudanese Stand Alone Forms: General Discharge Information Follow-up/Referrals: Jeronimo Mcduffie MD [Physician, Cardiology] - Call for Appointment Hellen Jarquin PA-C [Primary Care Provider, [facility]] - Call for Appointment Discharge Medications: New rosuvastatin 20 mg Tablet 20 mg PO QHS Qty: 30 1RF guaifenesin 600 mg tablet extended release 12hr 600 mg PO BID Qty: 14 0RF metoprolol succinate [Toprol XL] 25 mg tablet extended release 24 hr 12.5 mg PO QAM Qty: 30 1RF Jardiance 10 mg Tablet 10 mg PO DAILY Qty: 30 1RF metoprolol succinate [Toprol XL] 25 mg tablet extended release 24 hr 12.5 mg PO QAM Qty: 30 1RF cefuroxime axetil 250 mg Tablet 500 mg PO Q12HR Qty: 5 0RF Continued glucose [Dex4 Glucose] 4 gram tablet,chewable 16 g PO Q15M PRN (Reason: hypoglycemia) Qty: 60 1RF Rx Instructions: until symptoms of low blood sugar are controlled (DME) pen needle, diabetic [Chante Pen Needle] 32 gauge x 5/32 needle See Rx Instructions .Route Qty: 400 1RF Rx Instructions: Use to administer insulin 4 times a day venlafaxine 150 mg capsule,extended release 24hr 150 mg PO DAILY Qty: 90 1RF Gvoke HypoPen 2-Pack 1 mg/0.2 mL auto-injector 1 mg subcut ONCE PRN (Reason: hypoglycemia) Rx Instructions: may repeat once after 15 minutes if no response Eliquis 5 mg tablet 5 mg PO .q12 acetaminophen 500 mg tablet 500 mg PO Q6H PRN (Reason: fever or pain) clopidogrel 75 mg tablet 75 mg PO DAILY Qty: 90 1RF (DME) FreeStyle James 3 [place] Misc See Rx Instructions .Route Qty: 1 0RF Rx Instructions: As directed magnesium oxide 400 mg (241.3 mg magnesium) tablet 400 mg PO DAILY Qty: 90 0RF Patient Comments: ran out, was waiting for new script Tradjenta 5 mg tablet 5 mg PO QAM Qty: 90 1RF Changed insulin glargine [Basaglar KwikPen U-100 Insulin] 100 unit/mL (3 mL) insulin pen 33 unit subcut HS Qty: 15 0RF Discontinued ondansetron 4 mg tablet,disintegrating 4 mg PO Q8H PRN (Reason: nausea and vomiting) Qty: 10 0RF OMEGA XL 1 cap PO DAILY pravastatin 40 mg tablet 40 mg PO DAILY Qty: 90 0RF Date of admission: 01/14/25 05:55 Primary Care Provider: Hellen Jarquin Admitting Provider: Jernoimo Mcduffie Attending physician on admission: Bjorn Quinn Condition: Stable Hospitalist MIPS Heart Failure (Exclusion) Patient has history of Heart Transplant or Left Ventricular Assistive Device?: No IF YES, STOP HERE Heart Failure (Qualifier) Patient has current or prior documentation of LVEF less than or equal to 40%, or mod/servere depressed LVSF?: Yes IF NO, STOP HERE If Yes, Heart Failure (Qualifier) Patient was prescribed or already taking an Angiotensin-Converting Enzyme (JOHN) Inhibitor, or Antiotensin Receptor Dell (ARB): No Patient was prescribed or already taking bisoprolol, carvedilol, or sustained release metoprolol succinate: Yes If Medications not prescribed/taking Reason patient not prescribed/taking JOHN or ARB: Medical reasons: allergy, intolerance, contraindication or other
--- NOTE | 2025-02-02 09:27 | PC.NURSE ---
sputum cx complete. Given to Dr. Quinn to review.
[2025-02-02 18:08] LABS: Histoplasma Gal'mannan Ag, Ur Negative (<0.2 ng/mL)
--- NOTE | 2025-02-03 07:56 | PC.NURSE ---
Histoplasm is negative. Dr. Quinn is aware.
== END 2025-02-01 16:20 | disposition home health service (06) | DRG 321 ==
LOC: ANHED 05:56 → ANHICU 08:05 → ANHIMU 01-20 14:36 → ANH3MEDSUR 01-24 06:56 → ANHIMU 01-31 10:44 → ANHICU 01-31 10:44
PROVIDERS: Family Medicine; Internal Medicine; Internal Medicine Infectious Disease; Nurse Practitioner Gerontology; Admitting Provider Internal Medicine Interventional Cardiology; Emergency Provider Emergency Medicine; PCP Physician Assistant Medical; Visit Provider Internal Medicine
PROC: 4A023N7 Measurement of Cardiac Sampling and Pressure, Left Heart, Percutaneous Approach (ICD-10-PCS; CPT 93452; principal; 2025-01-14 05:30)
PROC: 027034Z Dilation of Coronary Artery, One Artery with Drug-eluting Intraluminal Device, Percutaneous Approach (ICD-10-PCS; CPT 92928; 2025-01-14 05:30)
PROC: 0270346 Dilation of Coronary Artery, One Artery, Bifurcation, with Drug-eluting Intraluminal Device, Percutaneous Approach (ICD-10-PCS; 2025-01-14 05:30)
DX: I21.09 ST elevation (STEMI) myocardial infarction involving other coronary artery of anterior wall (principal); I50.21 Acute systolic (congestive) heart failure; J18.9 Pneumonia, unspecified organism; J21.8 Acute bronchiolitis due to other specified organisms; B37.0 Candidal stomatitis; I25.10 Atherosclerotic heart disease of native coronary artery without angina pectoris; I10 Essential (primary) hypertension; E78.5 Hyperlipidemia, unspecified; I25.5 Ischemic cardiomyopathy; I34.0 Nonrheumatic mitral (valve) insufficiency; I11.0 Hypertensive heart disease with heart failure; I48.0 Paroxysmal atrial fibrillation; E87.6 Hypokalemia; N28.9 Disorder of kidney and ureter, unspecified; E11.9 Type 2 diabetes mellitus without complications; A49.2 Hemophilus influenzae infection, unspecified site; B34.8 Other viral infections of unspecified site; Z20.822 Contact with and (suspected) exposure to COVID-19; F41.9 Anxiety disorder, unspecified; F32.A Depression, unspecified; Z79.4 Long term (current) use of insulin; Z86.73 Personal history of transient ischemic attack (TIA), and cerebral infarction without residual deficits; Z87.891 Personal history of nicotine dependence; Z79.01 Long term (current) use of anticoagulants
CPT/HCPCS: 36415; 71045; 71250; 71275; 74019; 74174; 80048; 80053; 80061; 81001; 82948; 83036; 83605; 83690; 83735; 83880; 84100; 84484; 85025; 85027; 85055; 85610; 85730; 87070; 87205; 87385; 87449; 87633; 87637; 87641; 87899; 92610; 93005; 93308; 93458; 94640; 94667; 94668; 96374; 96375; 97110; 97161; 97530; 99285; A9270; C1725; C1760; C1769; C1874; C1887; C1894; C7532; C8924; C8929; C9606; G0269; J0692; J0696; J1327; J1644; J1815; J1938; J2003; J2250; J2270; J2305; J2405; J3010; J3475; J7030; J7040; J7512; P9041; Q9957; Q9967

== ENCOUNTER 2025-03-26 11:37 | Inpatient (IN) | payer MEDICARE, MEDICAID, SELFPAY ==
--- NOTE | ~2025-03-26 | XR_ITS ---
EXAMINATION: XR chest 2V, 03/31/2025 8:15 BIOMASS BOILER OPERATOR HISTORY: Pulmonary edema COMPARISON: No comparisons available. Technique: 2 views obtained. Findings: The lungs are clear, no effusion. No pneumothorax. Heart is normal size. Mediastinal and hilar contours are within normal limits. Bony thorax no acute abnormality. Impression: No acute cardiopulmonary abnormality. Reviewed, dictated and finalized at location P. ASS BOILER OPERATOR Impression: No acute cardiopulmonary abnormality.
--- NOTE | ~2025-03-26 | CT_ITS ---
EXAMINATION: CT abdomen pelvis w con DATE: 03/26/2025 13:24 INDICATION: Abdominal pain TECHNIQUE: Computed tomography (CT) of the abdomen and pelvis was performed with 100 mL Omnipaque-350 intravenous contrast. Automated exposure control and iterative reconstruction technique were employed. The dose-length product was 610.95 mGy-cm. COMPARISON: None FINDINGS: Scattered mild linear discoid atelectasis in the bilateral mid and lower lungs. No pneumonia, pulmonary edema or pleural effusion. Heart size is normal. Atherosclerotic coronary artery calcification and likely stenting along the left anterior descending coronary artery. No pericardial effusion. Postoperative change of likely Stacey fundoplication. Cholecystectomy clips the gallbladder fossa. Liver, spleen, pancreas, bilateral adrenal glands and right kidney are normal. Unchanged 7 mm low-attenuation left renal cyst. Moderate diverticulosis with descending and sigmoid colon predominance without adjacent inflammatory stranding to suggest diverticulitis. Small bowel and appendix are normal. Bladder is normal. The uterus is not identified and has likely been surgically resected. Mild thoracolumbar dextrocurvature with severe spondylosis. IMPRESSION: 1. . No acute intra-abdominal/pelvic process. 2. Diverticulosis. Reviewed, dictated and finalized at location A. EKEEPER ENGINEERING
--- NOTE | ~2025-03-26 | CT_ITS ---
EXAMINATION: CTA chest PE protocol, 04/02/2025 13:30 REHEAT FURNACE OPERATOR HISTORY: L sided CP with radiation COMPARISON: No comparisons available. TECHNIQUE: CTA examination is obtained with contrast CTA examination technique is performed with arterial phase of contrast-enhancement. 3-D reconstruction with thin MIP axial and MPR coronal imaging is provided Isovue 300, 92cc injected IV. One or more of the following dose reduction techniques were used: automated exposure control, adjustment of the mA and/or kV according to patient size, use of iterative reconstruction technique. FINDINGS: No significant coronary calcification is present ([id number]) LUNGS: Small simple appearing right pleural effusion. Contrast bolus is adequate, there is no pulmonary embolism identified. No tracheomalacia. No bronchiectasis. Moderate pulmonary venous congestion. No significant emphysematous or pulmonary fibrotic changes. HEART AND PERICARDIUM: Moderate cardiomegaly. Small simple appearing pericardial effusion. AORTA: Normal caliber aorta.. PULMONARY ARTERIES: No pulmonary embolism ADENOPATHY/MEDIASTINUM: None. LIMITED VIEWS OF THE ABDOMEN: Within normal limits. OSSEOUS STRUCTURES: No sclerotic or lytic lesions. No acute rib fractures are identified. OVERLYING SOFT TISSUES: Unremarkable. THYROID: The thyroid is unremarkable. IMPRESSION: 1. Negative for pulmonary embolism. Probable CHF Reviewed, dictated and finalized at location P. AT FURNACE OPERATOR
--- NOTE | ~2025-03-26 | XR_ITS ---
EXAMINATION: XR chest 1V portable COMPARISON: No comparisons available. HISTORY: Procedure workup FINDINGS: The lungs are clear, no effusion. No pneumothorax. Heart is normal size. Mediastinal and hilar contours are within normal limits. Bony thorax no acute abnormality. Miscellaneous: None Impression: No acute cardiopulmonary abnormality. Reviewed, dictated and finalized at location P. ECT OFFICER Impression: No acute cardiopulmonary abnormality.
[2025-03-26 11:37] VITALS: BP 91/56; PULSE 95; RESP 20; TEMP 36.6; O2SAT 94
--- NOTE | 2025-03-26 12:07 | ED_ITS ---
HPI - General Adult General Chief complaint: GI Bleed Stated complaint: dk red stool Time Seen by Provider: 03/26/25 12:06 Source: patient and EMS Mode of arrival: EMS Limitations: no limitations History of Present Illness HPI narrative: 79 years old white female came to the ED by ambulance from home complaining of bloody in bowel movement this morning prior to arrival to the emergency room. Associated with abdominal discomfort. Patient currently on Plavix and Eliquis. No history of GI bleed. Last colonoscopy was 1 year ago for a regular checkup. Related Data Home Medications ?Medication ?Instructions ?Recorded ?Confirmed ?Last Taken ?Type acetaminophen 500 mg tablet 500 mg PO Q6H PRN fever or pain 07/03/24 03/26/25 01/12/25 History insulin glargine 100 unit/mL (3 16 unit subcut QPM 03/26/25 03/25/25 History mL) subcutaneous pen (Basaglar KwikPen U-100 Insulin) sacubitril 24 mg-valsartan 26 mg 1 tablet PO BID 03/2603/26/25 03/26/25 History tablet (Entresto) Allergies Allergy/AdvReac Type Severity Reaction Status Date / Time Penicillins Allergy Mild Swelling Verified 03/26/25 16:18 pentazocine Allergy Mild Unknown Verified 03/26/25 16:18 albuterol Allergy syncope Verified 03/26/25 16:18 aspirin Allergy Swelling Verified 03/26/25 16:18 codeine Allergy Numbness Verified 03/26/25 16:18 Sulfa (Sulfonamide Allergy Unknown Verified 03/26/25 16:18 Antibiotics) ibuprofen AdvReac GI upset Verified 03/26/25 16:18 Review of Systems 2 Review of Systems: All systems reviewed & are unremarkable except as noted in HPI and below PMFSH Past Medical History Medical History Haemophilus infection Hypotension Anxiety and depression TIA (transient ischemic attack) 2012 HTN (hypertension) Hypomagnesemia Screening for colon cancer Mini stroke (~2012) Chronic headaches Acid reflux Diabetes Arthritis Surgical History Surgical History History of hand surgery trigger finger -right 3rd finger x3 History of bladder suspension procedure History of arthroscopy of left knee H/O: hysterectomy (~1979) Family History Family History Father Hypertension Mother Breast cancer Social History Social History Social History: Patient declined SDOH 02/12/24 Smoking status: Former smoker Additional smoking assessment comments: quit smoking about 40 years ago Alcohol intake: current Drinks per week: 1 Alcohol use details: OCC. Substance use: never Substance use type: does not use Do You Feel Safe in your Home?: Yes Lack of Transportation: No Lack of Food: Never True Current Housing: I Have Housing Concerned About Future Housing: No Difficulty Paying Gas/Electric Bills: No Difficulty Paying for Meds: No Currently Unemployed: No Education: High School Diploma/GED Difficulty w/ Childcare or Family Care: No Living arrangements: alone Occupation/Education: retired Gender identity (if verbalized by the patient): Female Spiritual care concerns: No Agree to blood products: Yes Exam 2 Narrative: General appearance: Well-developed, well-nourished Skin: Normal color Head: Normocephalic, nontraumatic Eyes: Clear conjunctiva ENT: Oropharynx normal, ears normal, nose normal Neck: Supple, nontender Chest and respiratory: Airway patent, no respiratory distress, no accessory muscle use Heart: Regular rate/rhythm Abdomen: Soft, nontender, no organomegaly, quiet bowel sounds, rectal exam a positive for blood, dark red colored blood Neurologic: Alert and oriented ?3, PRINCIPAL 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 Urbina Admit hospitalist Date: 03/26/25 Vital Signs Vital signs: Vital Signs Temperature 36.6 C 03/26/25 11:37 Pulse Rate 95 03/26/25 11:37 Respiratory Rate 20 03/26/25 11:37 Blood Pressure 91/56 L 03/26/25 11:37 Pulse Oximetry 94 03/26/25 11:37 Oxygen Delivery Room Air 03/26/25 11:37 Temperature 36.3 C L 03/26/25 20:39 Pulse Rate 99 03/26/25 20:39 Respiratory Rate 20 03/26/25 20:39 Blood Pressure 97/63 L 03/26/25 20:39 Pulse Oximetry 96 03/26/25 20:39 Oxygen Delivery Room Air 03/26/25 18:25 Medical Decision Making MDM Narrative Medical decision making narrative: Patient presents with rectal bleeding prior to arrival. Patient currently on Plavix and Eliquis Vital signs are stable Physical examination: Guaiac positive, no abdominal tenderness Differential diagnosis rectal bleed, diverticulitis, diverticulosis, arteriovenous malformation, less likely upper GI bleed. Blood workup today includes CBC, CMP, coags, lipase and lactic acid showed insignificant abnormality CT abdomen and pelvis with IV contrast showed diverticulosis Diagnosis rectal bleed Admit to hospitalist Differential Diagnosis Differential Diagnosis: As above Vital Signs Vital Signs: Vital Signs Temperature 36.6 C 03/26/25 11:37 Pulse Rate 95 03/26/25 11:37 Respiratory Rate 20 03/26/25 11:37 Blood Pressure 91/56 L 03/26/25 11:37 Pulse Oximetry 94 03/26/25 11:37 Oxygen Delivery Room Air 03/26/25 11:37 Temperature 36.3 C L 03/26/25 20:39 Pulse Rate 99 03/26/25 20:39 Respiratory Rate 20 03/26/25 20:39 Blood Pressure 97/63 L 03/26/25 20:39 Pulse Oximetry 96 03/26/25 20:39 Oxygen Delivery Room Air 03/26/25 18:25 Lab Data 03/26/25 20:25 03/26/25 12:24 Labs: Lab Results 03/26/25 03/26/25 Range/Units 12:24 12:26 WBC 8.7 (4.5-10.0) K/mm3 RBC 4.65 (4.2-5.4) M/mm3 Hgb 14.6 (12.0-15.0) g/dL Hct 44.6 (37.0-47.0) % MCV 95.9 (80-100) fl MCH 31.4 (26-34) pg MCHC 32.7 (32-36) g/dl RDW 13.5 (11.5-14.5) % Plt Count 279 (150-375) k/mm3 MPV 10.2 (7.4-10.4) fl Immature Gran % (Auto) 0.5 (0-0.5) % Neut % (Auto) 72.7 (45.5-73.1) % Lymph % (Auto) 14.8 L (18.3-44.2) % Dickenson % (Auto) 9.2 H (2.6-8.5) % Eos % (Auto) 2.2 (0-4.4) % Baso % (Auto) 0.6 (0.2-1.2) % Lymph # (Auto) 1.29 (0.9-3.2) K/mm3 Dickenson # (Auto) 0.8 H (0.1-0.6) K/mm3 Eos # (Auto) 0.2 (0-0.3) K/mm3 Baso # (Auto) 0.1 (0.0-0.1) K/mm3 Abs Immat Gran (auto) 0.04 H (0.00-0.031) K/mm3 Absolute Neuts (auto) 6.3 (1.3-6.7) K/mm3 Absolute Nucleated RBC 0.000 (0.0-0.012) K/mm3 Nucleated RBC % 0.0 (0.0-0.2) % PT 16.6 H (11.1-14.7) Seconds INR 1.3 APTT 43.0 H (22.3-36.8) Seconds Sodium 138 (137-145) mmol/L Potassium 4.3 (3.4-5.0) mmol/L Chloride 105 (98-107) mmol/L Carbon Dioxide 24 (22-30) mmol/L Anion Gap 9 (4-12) mmol/L BUN 20 H (7-17) mg/dL Creatinine 1.00 (0.7-1.0) mg/dL Estim Creat Clear Calc 40 ml/min Estimated GFR 53 L (59 - ) Glucose 191 H (65-110) mg/dL Lactic Acid 1.6 (0.7-2.0) mmol/L Calcium 8.7 (8.4-10.2) mg/dL Total Bilirubin 0.6 (0.2-1.3) mg/dL AST 28 (14-36) U/L ALT 15 (6-35) U/L Alkaline Phosphatase 73 (38-126) U/L Total Protein 6.9 (6.3-8.2) g/dL Albumin 3.8 (3.5-5.1) g/dL Lipase 116 (23-300) U/L Imaging Data Radiologist's impression: Impressions Abdomen/Pelvis CT 03/26/25 13:24 IMPRESSION: 1. . No acute intra-abdominal/pelvic process. 2. Diverticulosis. Critical Care Time Critical Care Time Critical Care Time: No Discharge Plan Discharge Clinical Impression: Rectal bleed Patient Disposition: Still a Patient Condition: Stable
[2025-03-26] MEDS: SODIUM CHLORIDE 0.9% IV 1,000 ML 999 ML IV CONT ×2 (12:22)
[2025-03-26 12:41] LABS: Hematocrit 44.6 % (37.0-47.0); Hemoglobin 14.6 g/dL (12.0-15.0); Immature Granulocyte Percent A 0.5 % (0-0.5); Lymphocytes Absolute Auto 1.29 K/mm3 (0.9-3.2); Mean Corpuscular HGB Conc 32.7 g/dl (32-36); Mean Corpuscular Hemoglobin 31.4 pg (26-34); Mean Corpuscular Volume 95.9 fl (80-100); Nucleated Red Blood Cells Absolute Auto 0.000 K/mm3 (0.0-0.012); Nucleated Red Blood Cells Perc 0.0 % (0.0-0.2); Platelet Count Result 279 k/mm3 (150-375); Red Blood Count 4.65 M/mm3 (4.2-5.4); White Blood Count 8.7 K/mm3 (4.5-10.0)
--- OUTSIDE RECORDS SUMMARY | 2025-03-26 12:44 | XMS_ITS | Encounter Summary ---
Author Organization [facility] Address [address] [place] [address] Care Team Providers Care Production Control Expert Name Role Phone Hellen Jarquin PA-C Primary Care Provider [phone] Encounter Details Date Type Department Care Team (Late st Contact Info) Description 02/01/2023 Therapy Plan [facility] [address] [place], [place] [id number] Wade Altamirano MD [address] [place] [id number] Social History Tobacco Use Types Packs/Day [...] or ex-partner? No 11/16/2022 Social Connection and Isolation Panel Answer Date Recorded In a typical week, how many times do you talk on the phone with family, friends, or neighbors? More than three times a week 09/16/2022 How often do you get togethe r with friends or relatives? More than three times a week 09/16/2022 How often do you attend chur or cheondoism services? 1 to 4 times per year 09/16/2022 Do you belong to any clubs o r organizations such as pentecostal groups, unions, fraternal or athletic groups, or [...] Recorded Patient Health Questionnaire-2 Score 0 01/25/2023 [facility] [place] Occupat [facility] - Occupational Stress [...] place to sleep or slept in a care home (including now)? No 11/16/2022 Comments No Sex and Gender Information Value Date Recorded Sex Assigned at Female 05/31/2024 8:39 PM HAIR SAMPLE MATCHER Legal Sex Female 10:55 PM HAIR SAMPLE MATCHER Gender Identity Female 05/31/2024 8:39 PM HAIR SAMPLE MATCHER Sexual Orientation Not on file documented as [...] Status No Risk Indicated 02/04/2023 8:03 PM DINAAT Mary Velazquez RN Active * Mora Suicide Severity Rating Scale (Screener/Recent Self-Report) Question [...] Comment:Isolation period completed 11/15/2022 02/05/202303/25 7:41 AM HAIR SAMPLE MATCHER COVID-19 Rule Out 02/04/2023 02/04/2023 02/04/2023 8:49 PM CDT COVID-19 Rule Out 02/05/2023 02/05/2023 02/05/2023 7:41 PM CDT COVID-19 Rule Out 03/24/2023 03/24/2023 03/24/2023 3:57 PM HAIR SAMPLE MATCHER C. difficile 05/03/2023 05/03/2023 01/24/2024 7:56 AM CDT COVID-19 Rule Out 01/23/2024 01/23/2024 01/23/2024 6:41 PM CDT COVID-19 Rule Out 01/25/2024 01/25/2024 01/26/2024 2:22 PM CDT C. difficile 01/30/2024 01/30/2024 03/05/2024 12:0 2 PM CDT COVID-19 Rule Out 03/05/2024 03/05/2024 03/05/2024 2:05 PM CDT C. difficile 04/13/2024 04/13/2024 06/09/2024 9:04 AM HAIR SAMPLE MATCHER C. difficile 06/27/2024 06/27/2024 12/24/2024 7:55 PM CDT documented as of this encounter Care Teams Production Control Expert Relationship Specialty Start Date End Date Hellen Jarquin PA-C [address] [place] [address] [address] [place] [address] PCP - General PHYSICIAN DIRECTOR PRODUCT DEVELOPMENT 08/18/22 documented as of this encounter
--- OUTSIDE RECORDS SUMMARY | 2025-03-26 12:44 | XMS_ITS | Clinical Summary ---
Author Organization [facility] [address] Address [address] [place] [address] Care Team Providers Care Social Insurance Analyst Name Role Phone Chidi Reis MD Unavailable [phone] Hellen Jarquin Primary Care Provider [phone] Allergies Active Allergy Reactions Criticality Noted Date Comments Albuterol Syncope High Aspirin Hives,Swelling Medium Reaction: Hives, , Codeine Other (See comments) numbness Ibuprofen Nausea only,Vomiting Reaction: Nausea, Vomiting, , Penicillins Hives Reaction: Hives, , Pentazocine Sulfa (Sulfonamide Antibiotics) Unknown 10/04/2011 Medications venlafaxine XR (EFFEXOR-XR) 150 mg 24 hr capsule Take 1 capsule (150 mg total) by mouth daily Active clopidogrel (PLAVIX) 75 mg tablet Take 75 mg by mouth daily Active glipiZIDE (GLUCOTROL) 10 mg tabletIndicatio ns:type 2 diabetes mellitus Take 10 mg by mouth 2 (two) times a day before breakfast and lunch Active rosuvastatin (CRESTOR) 20 mg tablet Take 1 tablet (20 mg total) by mouth nightly at bedtime 5 Active guaiFENesin (ROBITUSSIN) 400 mg tablet Take 1.5 tablets (600 mg total) by mouth Active Jardiance 10 mg tablet Take 1 tablet (10 mg total) by mouth daily 5 Active glucose 4 gram chewable tablet Take 4 tablets (16 g total) by mouth as needed for low blood sugar Active Gvoke HypoPen 1-Pack 1 mg/0.2 mL auto-injector 5 Active apixaban (ELIQUIS) 5 mg tablet Take 1 tablet (5 mg total) by mouth 2 (two) times a day 4 Active acetaminophen (TYLENOL) 500 mg tablet Take 1 tablet (500 mg total) by mouth every 6 (six) hours as needed for pain Active magnesium oxide (MAG-OX) 400 mg (241.3 mg elemental magnesium) tablet Take 1 tablet (400 mg total) by mouth daily 5 Active Tradjenta 5 mg tablet Take 1 tablet (5 mg total) by mouth every morning 5 Active insulin glargine 100 unit/mL (3 mL) pen for injection Inject under the skin Active metoprolol XL (TOPROL-XL) 25 mg extended release tablet Take 1 tablet (25 mg total) by mouth daily 30 tablet 11 5 Active sacubitriL-vals kristine (ENTRESTO) 24-26 mg tabletIndicatio ns:chronic heart failure Take 1 tablet by mouth 2 (two) times a day 60 tablet 11 5 Active blood pressure monitor (Blood Pressure Kit) kit Use once daily to monitor blood pressure 1 kit 5 Active Active Problems Problem Noted Date Diagnosed Date C. difficile colitis 02/09/2023 Type 2 diabetes mellitus 09/19/2013 Overview (08/09/2016): DMII WO CMP UNCNTRLD Hypertension 11/05/2012 Overview (08/09/2016): Hypertension Diabetes mellitus 11/05/2012 Overview (08/10/2016): Diabetes mellitus Encounters Date Type Department Care Team Description 03/26/2025 Telephone [facility] Cardiology 10 [facility] [address] [place] [phone] Omer Rios MD Hypotension; Rectal Bleeding 03/16/2025 9:15 AM DIE TRY OUT WORKER STAMPING Ancillary Procedure [facility] Cardiology [address] [place] [phone] Cardiomyopathy, ischemic 03/16/2025 Results Follow-Up [facility] Cardiology [address] [place] [address] [address] [place] [address] Judith Díaz NP Transthoracic Echo (TTE) Limited/Followup 02/12/2025 10:00 AM CDT Office Visit [facility] Cardiology [address] [place] [address] [address] [place] [phone] Judith Díaz NP 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; Cardiomyopathy, ischemic; Presence of stent in coronary artery; Paroxysmal atrial fibrillation (HCC); Chronic anticoagulation 02/12/2025 Telephone [facility] Cardiology [address] [place] [address] [address] [place] [phone] Judith Díaz NP 02/09/2025 Orders Only [facility] Cardiology [address] [place] [address] [place] [phone] Drea Mccrary, LIA 02/01/2025 Orders Only [facility] Cardiology [address] [place] [address] [place] [phone] Valorie Anderson MD 01/28/2025 Orders Only [facility] Cardiology [address] [place] [address] [address] [place] [phone] Drea Mccrary NP 01/26/2025 Orders Only [facility] Cardiology [address] [place] [address] [place] [phone] Pantera Muller MD 01/22/2025 Telephone [facility] Card[facility] [address] [facility] [address] [place] [phone] Drea Mccrary NP 01/20/2025 Orders Only [facility] Cardiology [address] [place] [address] [address] [place] [phone] Valorie Anderson MD 01/18/2025 Orders Only [facility] Cardiology [address] [place] [address] [address] [place] [phone] Omer Rios MD 01/18/2025 Telephone [facility] Cardiology [address] [place] [phone] Omer Rios MD 01/14/2025 Orders Only [facility] Health Information Management [address] [place] [phone] Scanning, Provider from Last 3 Months Surgical [...] ome: 7 lb(s) 2 oz Male Diabetes 2009 COPD (chronic obstructive pu lmonary disease) 2016 STEMI (ST elevation myocardi al infarction) ([facility]) 01/2025 Family History Medical History Relation Name Comments [...] on file Legal Sex Female 1:43 AM DIE TRY OUT WORKER STAMPING Gender Identity Not on file Sexual Orientation Not on file Obstetrics History Para Term AB IAB SAB Ectopic Multiple Livin g Live Births 2 2 2 Date Outcome GA Total Labor Labor/2nd/3rd Weight Sex Type Anes PTL Daria A1 A5 Name Clin Para Para Last Filed Vital Signs Vital Sign Reading Time Taken Comments Blood Pressure 120/72 02/12/2025 9:56 AM CDT Pulse 110 02/12/2025 9:56 AM CDT Temperature - - Respiratory Rate - - Oxygen Saturation 98% 02/12/2025 9:56 AM CDT Inhaled Oxygen Concentration - - Weight 81 kg (178 lb 8 oz) 02/12/2025 9:56 AM CD T Height 162.6 cm (5' 4) 02/12/2025 9:56 AM CDT Body Mass Index 30.64 02/12/2025 9:56 AM CDT Plan of Treatment Health Maintenance Due Date Last Done Comments Albumin Creatinine Ratio, Urine 1945 Depression Screening 1944 Fall Risk Assessment 1945 Hemoglobin A1C 1944 Osteoporosis Screening-Bone Density Scan 1945 eGFR 1945 Dilated Eye Exam 1945 Foot Exam 1945 Hepatitis B Screening 1962 Pneumococcal vaccine 65+ (1 of 2 - PCV) 07/10/1963 Zoster Vaccine (1 of 2) 1994 Well Visit 65+ 2009 Covid-19 Vaccine (5 - 2024-2 6 season) 2025 02/27/2023, 04/12/2021, 07/04/2020, Additional history exists Influenza Vaccine (#1) 2025 , 02/11/2023, 01/29/2022, Additional history exists Lipid Panel 01/25/2025 01/26/2024, 01/24/2024 DTaP/Tdap/Td Vaccine (2 - Td or Tdap) 05/31/2034 05/31/2024 Procedures Procedure Name Priority Date/Time Associated Diagnosis Comments TRANSTHORACIC ECHO (TTE) LIMITED/FOLLOW UP W LTD DOPPLER/CF WO CONTRAST Routine 03/16/2025 9:57 AM DIE TRY OUT WORKER STAMPING Cardiomyopathy, ischemic ELECTROCARDIOGRAM REPORT Routine 025 3:00 PM CDT Paroxysmal atrial fibrillation (HCC) CARDIOLOGY DOCUMENT SCAN Routine 025 12:54 PM CDT CARDIOLOGY DOCUMENT SCAN Routine 025 12:52 PM CDT CARDIOLOGY DOCUMENT SCAN Routine 025 11:04 AM CDT CARDIOLOGY DOCUMENT SCAN Routine 025 1:20 PM CDT CARDIOLOGY DOCUMENT SCAN Routine 025 9:04 AM CDT CARDIOLOGY DOCUMENT SCAN Routine 025 9:01 AM CDT CARDIOLOGY DOCUMENT SCAN Routine 025 1:17 PM CDT CARDIOLOGY DOCUMENT SCAN Routine 025 1:15 PM CDT CARDIOLOGY DOCUMENT SCAN Routine 025 1:12 PM CDT CARDIOLOGY DOCUMENT SCAN Routine 025 1:05 PM CDT CARDIOLOGY DOCUMENT SCAN Routine 025 3:18 PM CDT CARDIOLOGY DOCUMENT SCAN Routine 025 12:29 PM CDT CARDIOLOGY DOCUMENT SCAN Routine 025 12:26 PM CDT CARDIOLOGY DOCUMENT SCAN Routine 025 12:22 PM CDT CARDIOLOGY DOCUMENT SCAN 01/14/2025 from Last 3 Months Results * TRANSTHORACIC ECHO (TTE) LIMITED/FOLLOW UP W LTD DOPPLER/CF WO CONTRAST (03/16/2025 9:57 AM DIE TRY OUT WORKER STAMPING) Estimated EF 25-30 % CONS SCIMAGE EF Mod BP 33 % CONS SCIMAGE Anatomical Region Laterality Modality Ultrasound 03/16/2025 9:24 AM DIE TRY OUT WORKER STAMPING Narrative 03/16/2025 1:24 PM DIE TRY OUT WORKER STAMPING [facility] Cardiology [address] [facility] [address], [place] [address] [address] [facility] [address], [place] [address] P:[phone] P:[phone] Echocardiographic Report Patient Name: CHRISTOPHE BECKHAM F : 1945 Study Date: 03/16/2025 9:24:54 AM Sex: F Sales Floor Manager: Roya Barrett (Tiera)([place]), [facility] Location: [place] Ref Provider: JUDITH DÍAZ Height(Cm): 163 BSA: 1.91 Weight(Kg): 80.7 Heart Rate: 146 BP: 120 / 72 Quality: Good Order Provider: JUDITH DÍAZ PROCEDURES: Echocardiographic Report: Limited Transthoracic Echocardiogram with Complete 2D, M-Mode, and Color Doppler Examination. With Strain Analysis. Definity/Optison could not be used due to: unable to obtain IV access. INDICATIONS: I25.5 Ischemic cardiomyopathy. MEASUREMENTS: 2D/MM Value Range Doppler Value Range EF Mod BP 33 % [ 54 - 74 ] LVOT Diam 2.02 cm [ 1.70 - 2.10 ] Estimated EF 25-30 % LVOT Peak Misael 0.79 m/s [ 0.70 - 1.10 ] LV GLS -8.40 % LVOT VTI 12.74 cm LVIDd 2D 4.25 cm [ 3.80 - 5.20 ] TR Peak Misael 3.02 m/s [ 1.00 - 2.80 ] LVIDs 2D 3.60 cm [ 2.20 - 3.50 ] TR Peak PG 36 mmHg LVPWd 2D 1.10 cm [ 0.60 - 0.90 ] IVSd 2D 1.07 cm [ 0.60 - 0.90 ] 2D/MM Value Range Doppler Value Range - FINDINGS: Interpretation Site: Exam was interpreted at [facility]. Left Ventricle: Mild concentric left ventricular hypertrophy. Mild enlargement of left ventricle cavity. Severe global left ventricular systolic dysfunction. Diastolic dysfunction is present. Ejection fraction is measured at 33 %. Ejection Fraction is visually estimated to be 25-30 %. Global Longitudinal Strain is -8 %. GLS is abnormal. Resting Segmental Wall Motion Analysis: Total wall motion score is 1.76. There is akinesis of the apical cap. There is akinesis of the apical lateral wall. The entire inferolateral wall demonstrates normal motion. The basal anterolateral to basal inferior to basal inferoseptal wall demonstrates normal motion. The mid inferior wall demonstrates normal motion. The remaining left ventricular segments demonstrate hypokinesis. Right Ventricle: Normal right ventricular size. Normal right ventricular systolic function. Left Atrium: There is mild enlargement of left atrium. Right Atrium: The right atrium is normal in size. Atrial Septum: Normal atrial septum. Mitral Valve: Normal appearance of the mitral valve. Moderate mitral valve regurgitation. Aortic Valve: Normal appearance of the aortic valve. Tricuspid Valve: Normal appearance of the tricuspid valve. Mild tricuspid regurgitation. Pulmonic Valve: Pulmonic valve not well visualized. Pericardium: Small pericardial effusion. Aorta: Normal aortic root. CONCLUSIONS: Mild concentric left ventricular hypertrophy. Mild enlargement of left ventricle cavity. Severe global left ventricular systolic dysfunction. Diastolic dysfunction is present. Ejection fraction is measured at 33 %. Ejection Fraction is visually estimated to be 25-30 %. Global Longitudinal Strain is -8 %. GLS is abnormal. There is mild enlargement of left atrium. Moderate mitral valve regurgitation. Mild tricuspid regurgitation. Small pericardial effusion. Normal sinus rhythm. Electronically Signed By: Adam Brown MD 03/16/2025 1:23:58 PM DIE TRY OUT WORKER STAMPING Procedure Note Adam Brown MD - 03/16/2025 [facility] [address] [facility] [address], [place] [address] [address] [facility] [address], [place] [address] P:[phone] P:[phone] Echocardiographic Report Patient Name: CHRISTOPHE BECKHAM F : 1945 Study Date: 03/16/2025 9:24:54 AM Sex: F Sales Floor Manager: Roya Dawkins)([place]), [facility] Location: [facility] Provider: JUDITH DÍAZ Height(Cm): 163 BSA: 1.91 Weight(Kg): 80.7 Heart Rate: 146 BP: 120 / 72 Quality: Good Order Provider: JUDITH DÍAZ PROCEDURES: Echocardiographic Report: Limited Transthoracic Echocardiogram with Complete 2D, M-Mode, and ColorDoppler Examination. With Strain Analysis. Definity/Optison could not be used dueto: unable to obtain IV access. INDICATIONS: I25.5 Ischemic cardiomyopathy. MEASUREMENTS: 2D/MM Value Range Doppler ValueRange EF Mod BP 33 % [ 54 - 74 ] LVOT Diam 2.02 cm[ 1.70 - 2.10 ] Estimated EF 25-30 % LVOT Peak Misael 0.79 m/s[ 0.70 - 1.10 ] LV GLS -8.40 % LVOT VTI 12.74 cm LVIDd 2D 4.25 cm [ 3.80 - 5.20 ] TR Peak Misael 3.02 m/s[ 1.00 - 2.80 ] LVIDs 2D 3.60 cm [ 2.20 - 3.50 ] TR Peak PG 36 mmHg LVPWd 2D 1.10 cm [ 0.60 - 0.90 ] IVSd 2D 1.07 cm [ 0.60 - 0.90 ] 2D/MM Value Range Doppler ValueRange - FINDINGS: Interpretation Site: Exam was interpreted at [facility]. Left Ventricle: Mild concentric left ventricular hypertrophy. Mild enlargement of leftventricle cavity. Severe global left ventricular systolic dysfunction. Diastolic dysfunctionis present. Ejection fraction is measured at 33 %. Ejection Fraction is visuallyestimated to be 25-30 %. Global Longitudinal Strain is -8 %. GLS is abnormal. Resting Segmental Wall Motion Analysis: Total wall motion score is 1.76. There is akinesis of the apical cap.There is akinesis of the apical lateral wall. The entire inferolateral wall demonstratesnormal motion. The basal anterolateral to basal inferior to basal inferoseptal walldemonstrates normal motion. The mid inferior wall demonstrates normal motion. The remainingleft ventricular segments demonstrate hypokinesis. Right Ventricle: Normal right ventricular size. Normal right ventricular systolicfunction. Left Atrium: There is mild enlargement of left atrium. Right Atrium: The right atrium is normal in size. Atrial Septum: Normal atrial septum. Mitral Valve: Normal appearance of the mitral valve. Moderate mitral valveregurgitation. Aortic Valve: Normal appearance of the aortic valve. Tricuspid Valve: Normal appearance of the tricuspid valve. Mild tricuspid regurgitation. Pulmonic Valve: Pulmonic valve not well visualized. Pericardium: Small pericardial effusion. Aorta: Normal aortic root. CONCLUSIONS: Mild concentric left ventricular hypertrophy. Mild enlargement of leftventricle cavity. Severe global left ventricular systolic dysfunction. Diastolic dysfunctionis present. Ejection fraction is measured at 33 %. Ejection Fraction is visuallyestimated to be 25-30 %. Global Longitudinal Strain is -8 %. GLS is abnormal. There is mild enlargement of left atrium. Moderate mitral valve regurgitation. Mild tricuspid regurgitation. Small pericardial effusion. Normal sinus rhythm. Electronically Signed By: Adam Brown MD 03/16/2025 1:23:58 PM DIE TRY OUT WORKER STAMPING Result [facility] Judith Díaz NP CV ECHO PROCEDURES Final Result * Electrocardiogram Report (02/12/2025 3:00 PM CDT) Judith Díaz NP ECG ORDERABLES Final Res ult * Cardiology Document Scan (01/30/2025 12:54 PM CDT) Anatomical Region Laterality Modality Other Jarad Young MD CV CARDIAC SERVICES PROC EDURES Final Result * Cardiology Document Scan (01/29/2025 12:52 PM CDT) Anatomical Region Laterality Modality Other Valorie Anderson MD CV CARDIAC SERVICES PROCEDU RES Final Result * Cardiology Document Scan (01/27/2025 11:04 AM CDT) Anatomical Region Laterality Modality Other Result [facility] Drea Mccrary NP CV CARDIAC SERVICE S PROCEDURES Final Result * Cardiology Document Scan (01/26/2025 1:20 PM CDT) Anatomical Region Laterality Modality Other Result [facility] Drea Mccrary NP CV CARDIAC SERVICE S PROCEDURES Final Result * Cardiology Document Scan (01/25/2025 9:04 AM CDT) Anatomical Region Laterality Modality Other Valorie Anderson MD CV CARDIAC SERVICES PROCEDU RES Final Result * Cardiology Document Scan (01/24/2025 9:01 AM CDT) Anatomical Region Laterality Modality Other Pantera Muller MD CV CARDIAC SERVICES PROC EDURES Final Result * Cardiology Document Scan (01/22/2025 1:17 PM CDT) Anatomical Region Laterality Modality Other us Drea Baltazar Ventimiglia CASINO ACCOUNTANT CV CARDIAC SERVICE S PROCEDURES Final Result * Cardiology Document Scan (01/21/2025 1:15 PM CDT) Anatomical Region Laterality Modality Other us Drea Baltazar Ventimiglia CASINO ACCOUNTANT CV CARDIAC SERVICE S PROCEDURES Final Result * Cardiology Document Scan (01/20/2025 1:12 PM CDT) Anatomical Region Laterality Modality Other us Drea Baltazar Ventimiglia CASINO ACCOUNTANT CV CARDIAC SERVICE S PROCEDURES Final Result * Cardiology Document Scan (01/19/2025 1:05 PM CDT) Anatomical Region Laterality Modality Other us Drea Baltazar Ventimiglia CASINO ACCOUNTANT CV CARDIAC SERVICE S PROCEDURES Final Result * Cardiology Document Scan (01/18/2025 3:18 PM CDT) Anatomical Region Laterality Modality Other us Valorie Anderson MD CV CARDIAC SERVICES PROCEDU RES Final Result * Cardiology Document Scan (01/17/2025 12:29 PM CDT) Anatomical Region Laterality Modality Other us Adam Brown MD CV CARDIAC SERVICES PROCE DURES Final Result * Cardiology Document Scan (01/16/2025 12:26 PM CDT) Anatomical Region Laterality Modality Other us Adam Brown MD CV CARDIAC SERVICES PROCE DURES Final Result * Cardiology Document Scan (01/15/2025 12:22 PM CDT) Anatomical Region Laterality Modality Other us Omer Rios MD CV CARDIAC SERVICES PROCEDURES F inal Result * Cardiology Document Scan (01/14/2025) Anatomical Region Laterality Modality Other us Provider Scanning CV CARDIAC SERVICES PROCEDURES Edited Result - Final from Last 3 Months Insurance MEDICARE [facility] MEDICARE SUPPLEMENT INSURANCE [facility] MEDICARE ADVANTAGE ID[employer] [facility] MEDICARE ADVANTAGE Advance Directives For more information, please contact: [phone] * Full Code (Latest Code Status on File) Date Activated Date Inactivated Comments 02/09/2023 6:04 AM Care Teams Social Insurance Analyst Relationship Specialty Start Date End Date Hellen Jarquin PA [address] [place] [address] PCP - General Family Practice 02/12/25 Chidi Reis MD Internal Medicine 03/26/24
--- OUTSIDE RECORDS SUMMARY | 2025-03-26 12:44 | XMS_ITS | Encounter Summary ---
Author Organization [facility] Address [facility] [place] [address] Care Team Providers Care Data Entry Representative Name Role Phone Hellen Jarquin PA-C Primary Care Provider [phone] Encounter Details Date Type Department Care Team (Late st Contact Info) Description 03/25/2024 [employer] Message Enc [facility] Multispecialty [address] [phone] [place], [facility] Provider referral Social History Tobacco Use [...] from your doctor or pharmacy? Never 01/30/2024 [facility] Utilities Answer Date Recorded In the past [...] or ex-partner? No 03/05/2024 Social Connection and Isolation Panel Answer Date Recorded In a typical week, how many times do you talk on the phone with family, friends, or neighbors? Patient declined 01/30/2024 How often do you get togethe r with friends or relatives? More than three times a week 01/30/2024 How often do you attend [facility] or pentecostalism services? More than 4 times per year 01/30/2024 Do you belong to any clubs o r organizations such as orthodoxy groups, unions, fraternal or athletic groups, or [...] Recorded Patient Health Questionnaire-2 Score 0 02/13/2024 [facility] - Occupational [...] place to sleep or slept in a chcf (including now)? No 03/24/2023 Housing Stability Vital Sign Answer Hussain e Recorded In the last 12 months, was t here a time when you were not able to pay the mortgage or rent on time? No 03/05/2024 In the past 12 months, how m any times have you moved where you were living? 1 03/05/2024 At any time in the past 12 m [facility], were you homeless or living in a chcf (including now)? No 03/05/2024 Comments No Sex and Gender Information Value Date Recorded Sex Assigned at Female 05/31/2024 8:39 PM RETAIL PLANNING MANAGER Legal Sex Female 10:55 PM RETAIL PLANNING MANAGER Gender Identity Female 05/31/2024 8:39 PM RETAIL PLANNING MANAGER Sexual Orientation Not on file documented as [...] Machado RN Active * Do you have serious difficulty walking or climbing stairs? Answer Date of Assessment Author Status No 03/05/2024 10:19 PM CDT Asuncion Machado RN Active * Do you [...] and discharge planning Lifestyle No Helen Santos, BISQUE KILN DRAWER documented as of this encounter Visit Diagnoses Not on filedocumented in this encounter Additional Health Concerns Infection Onset Date Last Indicated Resolved Time C. difficile 04/13/2024 04/13/2024 06/09/2024 9:04 AM RETAIL PLANNING MANAGER C. difficile 06/27/2024 06/27/2024 12/24/2024 7:55 PM CDT documented as of this encounter Care Teams Data Entry Representative Relationship Specialty Start Date End Date Hellen Jarquin PA-C [address] [place] [address] PCP - General PHYSICIAN PRINTED CIRCUIT BOARD REWORKER 08/18/22 documented as of this encounter
--- OUTSIDE RECORDS SUMMARY | 2025-03-26 12:44 | XMS_ITS | Encounter Summary ---
Author Organization [facility] Healthcare Address [address] [place] [address] Care Team Providers Care Wireless Sales Representative Name Role Phone Chidi Reis MD Unavailable [phone] Hellne Jarquin Primary Care Provider [phone] Reason for Visit * Reason Onset Date Comments Hypotension 03/26/2025 Rectal Bleeding 03/26/2025 Encounter Details Date Type Department Care Team (Late st Contact Info) Description 03/26/2025 Telephone [facility] Cardiology [address] [place] [address] Omer Rios MD [address] [place] [address] Hypotension; Rectal Bleeding Social History Tobacco Use Types Packs/Day Years Used Date Smoking Tobacco: Never Smokeless Tobacco: Never Alcohol Use Standard Drinks/Week Comments Yes 0 (1 standard drink = 0.6 oz pur e alcohol) socially Comments No Sex and Gender Information Value Date Recorded Sex Assigned at Not on file Legal Sex Female 1:43 AM HOTEL VALET ATTENDANT Gender Identity Not on file Sexual Orientation Not on file documented as of this encounter Miscellaneous Notes * Telephone Encounter - Marva Hanson RN - 03/26/2025 11:25 AM HOTEL VALET ATTENDANT Spoke to daughter La ([facility]), she spoke to Peg and she is on her way to the hospital via EMS, L VALET ATTENDANT * Telephone Encounter - Ayana Peterson - 03/26/2025 10:56 AM CST Pt states that after her bowel movement today the toilet was filled with blood. States that she took her BP and it was 71/32. Advised pt to go to the ED to be evaluated. Pt stated that she would. Please advise. Thank you. Contact [phone] L VALET ATTENDANT documented in this encounter Plan of Treatment Not on file documented as of this encounter Visit Diagnoses Not on filedocumented in this encounter Care Teams Wireless Sales Representative Relationship Specialty Start Date End Date Hellen Jarquin PA [address] [place] [id number] PCP - General Family Practice 02/12/25 Chidi Reis MD Internal Medicine 03/26/24 documented as of this encounter
--- OUTSIDE RECORDS SUMMARY | 2025-03-26 12:44 | XMS_ITS | Clinical Summary ---
Author Organization [facility] Care Team Providers Care Detailer Furniture Name Role Phone Unavailable Primary Care Provider [...]
--- OUTSIDE RECORDS SUMMARY | 2025-03-26 12:44 | XMS_ITS | Clinical Summary ---
Author Organization [facility] Address [address] [place] [address] Care Team Providers Care Supervisor Fishing Name Role Phone Hellen Jarquin PA-C Primary Care Provider [phone]- [phone] Allergies Active Allergy Reactions Criticality Noted Date [...] type 06/12/2023 Hyperglycemia due to diabetes mellitus 3 Type 2 diabetes mellitus wit hout complication, unspecified whether fpc insulin use 03/25/2023 03/25/2023 Diabetes mellitus due to und erlying condition with hyperglycemia 03/25/2023 Uncontrolled type 2 diabetes mellitus with hyper glycemia 03/24/2023 Clostridium difficile diarrhea 02/07/2023 C. difficile enteritis 11/15/2022 Recurrent Clostridium difficile diarrhea 023 Altered mental status 10/31/2022 Colitis 10/15/2022 Pulmonary embolism 09/30/2022 Physical deconditioning 09/08/2022 Diverticulitis 09/01/2022 Acute diverticulitis 08/31/2022 Knee pain, acute 12/05/2018 Hypercholesteremia Diabetes mellitus History of stroke Resolved Problems Problem Noted [...] from your doctor or pharmacy? Never 04/16/2024 [facility] Utilities Answer Date Recorded In the past 12 months has th e electric, [email or web address], oil, or water [employer] threatened to shut off services in your [...] or ex-partner? No 06/26/2024 Social Connection and Isolation Panel Answer Date Recorded In a typical week, how many times do you talk on the phone with family, friends, or neighbors? More than three times a week 04/16/2024 How often do you get togethe r with friends or relatives? More than three times a week 04/16/2024 How often do you attend [facility] or alevism services? More than 4 times per year 04/16/2024 Do you belong to any clubs o r organizations such as rastafarian groups, unions, fraternal or athletic groups, or [...] Recorded Patient Health Questionnaire-2 Score 0 08/04/2024 [facility] - Occupational Stress Questionnaire Answer Date [...] any time in the past 12 m [facility], were you homeless or living in a longterm (including now)? No 06/26/2024 Comments No Sex and Gender Information Value Date Recorded Sex Assigned at Female 05/31/2024 8:39 PM DIRECTOR OF FINANCIAL PLANNING Legal Sex Female 10:55 PM DIRECTOR OF FINANCIAL PLANNING Gender Identity Female 05/31/2024 8:39 PM DIRECTOR OF FINANCIAL PLANNING Sexual Orientation Not on file Last Filed Vital Signs Vital Sign Reading Time Taken Comments Blood Pressure 123/79 07/01/2024 11:10 AM DIRECTOR OF FINANCIAL PLANNING Pulse 119 07/01/2024 11:10 AM DIRECTOR OF FINANCIAL PLANNING nurse notified Temperature 36.3 C (97.3 F) 07/01/2024 11:10 AM DIRECTOR OF FINANCIAL PLANNING Respiratory Rate 18 07/01/2024 11:1 0 AM DIRECTOR OF FINANCIAL PLANNING Oxygen Saturation 93% 07/01/2024 11: 10 AM DIRECTOR OF FINANCIAL PLANNING Inhaled Oxygen Concentration - - Weight 75.5 kg (166 lb 7.2 oz) 07/01/2024 4:55 AM DIRECTOR OF FINANCIAL PLANNING Height 160 cm (5' 3) 06/26/2024 3:39 PM DIRECTOR OF FINANCIAL PLANNING Body Mass Index 29.48 06/26/2024 3:39 PM DIRECTOR OF FINANCIAL PLANNING Plan of Treatment Health Maintenance Due Date [...] 06/03/2020 Lipid Panel 01/25/2025 01/26/2024, 01/05, 10/14/2022 Influenza Adult (#1) 2025 01/28/2024, 02/11/2023, 02/17/2019, Additional history exists DTaP, Tdap and Td Vaccines (2 - Td or Tdap) 05/31/2034 05/31/2024 PHQ-2 (Physician [place]) Completed 08/04/2024 Hepatitis A Vaccines Aged Out No long er eligible based on patient's age to complete this topic Meningococcal B Vaccine Aged Out No l [...] and discharge planning Lifestyle No Helen Santos, FINANCIAL ADVISOR TRAINEEtool room attendant Devices Implanted Type Area Liquor Rectifier Device Identifier Shelf Expiration Date Model / Serial / Lot 1.5 6 Hole Plate Implanted:Qty: 1 on 06/09/2024 by Vishnu Olsen DO at [facility] Right: Hand DEPUY SYNTHES .003 / / Description:Implanted to fou rth metacarpal 1.5 Cortex Screw 11mm Implanted:Qty: 2 on 06/09/2024 by Vishnu Olsen DO at [facility] Right: Hand DEPUY SYNTHES .111 / / Description:Implanted to fou rth metacarpal 1.5 Cortex Screw 12mm Implanted:Qty: 1 on 06/09/2024 by Vishnu Olsen DO at [facility] Right: Hand DEPUY SYNTHES .112 / / Description:Implanted to fou rth metacarpal 1.5 Cortex Screw 10mm Implanted:Qty: 1 on 06/09/2024 by Vishnu Olsen DO at [facility] Right: Hand DEPUY SYNTHES .110 / / Description:Implanted to fou rth metacarpal 1.5 Cortex Screw 9mm Implanted:Qty: 1 on 06/09/2024 by Vishnu Olsen DO at [facility] Right: Hand DEPUY SYNTHES .109 / / Description:Implanted to fou rth metacarpal 1.5 Locking Screw 14mm Implanted:Qty: 1 on 06/09/2024 by Vishnu Olsen DO at [facility] Right: Hand DEPUY SYNTHES .014 / / Description:Implanted to fou rth metacarpal Explanted Type Area Liquor Rectifier Device Identifier Shelf Expiration Date Model / Serial / Lot 1.5 Cortex Screw 12mm Explanted:Qty: 1 on 06/09/2024 by Vishnu Olsen DO at [facility] Right: Hand DEPUY SYNTHES .112 / / Description:Fourth metacarpa l Procedures Procedure Name Priority Date/Time Associated Diagnosis Comments HEMOGLOBIN, GLYCOSYLATED STAT 05/03/2024 2:00 PM DIRECTOR OF FINANCIAL PLANNING LIPID PANEL Routine 01/26/2024 4:30 AM CDT from Last 3 Months or Most Recently Relevant to Health Maintenance Results * (ABNORMAL) HEMOGLOBIN, GLYCOSYLATED (05/03/2024 2:00 PM DIRECTOR OF FINANCIAL PLANNING) HGB A1C 10.0(H) <5.7 % 05/03/2024 2:56 PM DIRECTOR OF FINANCIAL PLANNING [facility] Comment: INCREASED RISK OF DIABETES <5.7% NON-DIABETES 5.7-6.4% INCREASED RISK FOR FUTURE DIABETES > OR = 6.5 CONSISTENT WITH DIABETES STANDARDS OF MEDICAL CARE IN DIABETES-2010 DIABETES CARE, 33(SUPP 1): S1-S61,2010 ESTIMATED AVG GLUCOSE 240 mg/dL 05/03/2024 2:56 PM DIRECTOR OF FINANCIAL PLANNING [facility] 05/03/2024 2:00 PM DIRECTOR OF FINANCIAL PLANNING us Deepa Stein NP LABORATORY Final Resul t [facility] [address] [place] [address], * LIPID PANEL (01/26/2024 4:30 AM CDT) CHOLESTEROL 133 <200.0 MG/DL 01/26/2024 5:46 AM CDT [facility] TRIGLYCERIDES 122 <150 MG/DL 01/26/2024 5:46 AM CDT [facility] HDL 51 >40.0 MG/DL 01/26/2024 5:46 AM CDT [facility] LDL (CALCULATED) 58 <100 MG/DL 01/26/20 5:46 AM CDT [facility] NON HDL CHOLESTEROL 82 <130 MG/DL 01/25 5:46 AM CDT [facility] CHOL/HDL RATIO 2.6 0.0 - 4.5 01/26/2024 5:46 AM CDT [facility] VLDL CALCULATION 24 5 - 55 MG/DL 01/26/2024 5:46 AM CDT [facility] LIPID INTERPRETATION 01/26/2024 5:46 AM CDT [facility] Comment: [facility] CONCENSUS REPORT RECOMMENDATIONS: ADULT CHILD LOW RISK: CHOLESTEROL <200 <170 TRIGLYCERIDE <150 --- HDL >=60 --- LDL <100 <110 BORDERLINE: CHOLESTEROL 200-239 170-199 TRIGLYCERIDE 150-199 --- HDL 40-59 --- LDL 100-159 110-129 HIGH RISK: CHOLESTEROL >=240 >=200 TRIGLYCERIDE >=200 --- HDL <40 --- LDL >=160 >=130 01/26/2024 4:30 AM CDT Kathi Royal MD LABORATORY Final Result [facility] [address] [place] [address], from Last 3 Months or Most Recently Relevant to Health Maintenance Insurance [facility] MEDICARE MEDICAID Advance Directives Documents on File Type Date Recorded Patient Manager Program Management Expl anation DNR (Do Not Resuscitate) Documentation [...] 6:01 PM 04/16/2024 1:44 PM Care Teams Supervisor Fishing Relationship Specialty Start Date End Date Hellen Jarquin PA-C [address] [place] [address] [address] [place] [address] PCP - General PHYSICIAN NOVELTY WORKER 08/18/22
[2025-03-26 12:52] LABS: INR 1.3; Prothrombin Time 16.6 Seconds (11.1-14.7)
[2025-03-26 12:53] LABS: Partial Thromboplastin Time 43.0 Seconds (22.3-36.8)
[2025-03-26 12:58] LABS: Alanine Aminotransferase 15 U/L (6-35); Albumin Level 3.8 g/dL (3.5-5.1); Alkaline Phosphatase 73 U/L (38-126); Anion Gap 9 mmol/L (4-12); Aspartate Amino Transferase 28 U/L (14-36); Bilirubin,Total 0.6 mg/dL (0.2-1.3); Blood Urea Nitrogen 20 mg/dL (7-17); Calcium 8.7 mg/dL (8.4-10.2); Carbon Dioxide 24 mmol/L (22-30); Chloride 105 mmol/L (98-107); Estimated CRCL calculation 40 ml/min; Estimated Glomerular Filt Rate 53; Glucose 191 mg/dL (65-110); Lipase 116 U/L (23-300); Potassium 4.3 mmol/L (3.4-5.0); Sodium 138 mmol/L (137-145); Total Protein 6.9 g/dL (6.3-8.2)
[2025-03-26 14:00] VITALS: BP 95/53; PULSE 83; RESP 19; O2SAT 94
[2025-03-26 14:54] LABS: Hematocrit 41.1 % (37.0-47.0); Hemoglobin 13.5 g/dL (12.0-15.0)
[2025-03-26 15:00] VITALS: BP 94/74; PULSE 91; RESP 20; O2SAT 95
[2025-03-26 15:02] LABS: Add Urine Microscopic? YES; Appearance Urine Clear (Clear); Glucose Urine UA 3+ mg/dL (Negative); Leukocyte Esterase Ur 1+ LEU/UL (Negative); Nitrate Urine Negative (Negative); Non Pathogenic Casts 0-2; Specific Grav Ur > 1.045 (1.001-1.035)
--- NOTE | 2025-03-26 15:26 | WPCEDHO ---
ED Hand Off Checklist All vitals saved:yes IV Site documented:yes All med administrations documented:yes Triage Note Triage Note Patient to the ED with complaints 03/26/25 11:37 of dark stool that occurred this morning. patient does take blood thinners. patient has history of NH a couple months ago. Patient also complains of abdominal pain. patient states this is the first time she has had dark stool Allergies Penicillins Allergy (Mild, Verified 03/26/25 13:17) Swelling Patient received ceftriaxone in January 2025 pentazocine Allergy (Mild, Verified 03/26/25 13:17) Unknown TALWIN albuterol Allergy (Verified 03/26/25 13:17) syncope aspirin Allergy (Verified 03/26/25 13:17) Swelling codeine Allergy (Verified 03/26/25 13:17) Numbness Sulfa (Sulfonamide Antibiotics) Allergy (Verified 03/26/25 13:17) Unknown ibuprofen Adverse Reaction (Verified 03/26/25 13:17) GI upset Family History (Last Reviewed 03/26/25 @ 13:09 by Aleksander Jones MD) Father Hypertension Mother Breast cancer Administered/Completed Medications Discontinued Medications Sodium Chloride (Normal Saline Iv) 1,000 mls @ 999 mls/hr IV CONT .Q1H1M STA Stop: 03/26/25 13:08 Last Admin: 03/26/25 12:22 Dose: 999 mls/hr Documented By: [facility] Sodium Chloride (Normal Saline Iv) 1,000 mls @ 999 mls/hr IV CONT .Q1H1M STA Stop: 03/26/25 13:11 Last Admin: 03/26/25 12:22 Dose: 999 mls/hr Documented By: [facility] Interventions/Assessments IV / Saline Lock, Insert Start: 03/26/25 12:08 Freq: STAT Status: Active Protocol: Document 03/26/25 15:26 [facility] (Rec: 03/26/25 15:26 [facility] [id number]) IV Assessment Peripheral Access Right Forearm IV Catheter Access Initiated IV Insertion Date 03/26/25 IV Insertion Time 14:00 Catheter Gauge 22 Ultrasound Used for Yes Placement IV Site Assessment WNL IV Care and WNL Maintenance Last Vital Signs Temperature 97.9 F 03/26/25 11:37 Pulse Rate 91 03/26/25 15:00 Respiratory Rate 20 03/26/25 15:00 Pulse Oximetry 95 03/26/25 15:00 Blood Pressure 94/74 L 03/26/25 15:00 Blood Pressure Mean 80 03/26/25 15:00 Oxygen Delivery Room Air 03/26/25 11:37 Weight 77.3 kg 03/26/25 11:37 Last Result - Abnormals Only Lymph % (Auto) 14.8 % (18.3-44.2) L 03/26/25 12:24 [place] % (Auto) 9.2 % (2.6-8.5) H 03/26/25 12:24 [place] # (Auto) 0.8 K/mm3 (0.1-0.6) H 03/26/25 12:24 Abs Immat Gran (auto) 0.04 K/mm3 (0.00-0.031) H 03/26/25 12:24 PT 16.6 Seconds (11.1-14.7) H 03/26/25 12:24 APTT 43.0 Seconds (22.3-36.8) H 03/26/25 12:24 BUN 20 mg/dL (7-17) H 03/26/25 12:24 Estimated GFR 53 (59-) L 03/26/25 12:24 Glucose 191 mg/dL (65-110) H 03/26/25 12:24 Ur Specific [place] > 1.045 (1.001-1.035) H 03/26/25 14:36 Urine Glucose (UA) 3+ mg/dL (Negative) H 03/26/25 14:36 Leukocyte Esterase Rfl 1+ DEV/UL (Negative) H 03/26/25 14:36 Urine WBC 51-100 /hpf (0-3) H 03/26/25 14:36 Urine Bacteria 1+ /hpf H 03/26/25 14:36 Most Recent Suicide Severity Rating Suicide Severity Rating NO RISK INDICATED 03/26/25 11:37
[2025-03-26 16:00] VITALS: BMI 30.2
--- NOTE | 2025-03-26 16:02 | PC.NURSE ---
This patient, Ailyn Neff, was admitted to [facility] Surg Room 323-01 at 1600. Patient/family oriented to hospital policies and general routines including ID bracelet, bed and alarms, visiting hours, pain management, procedures, bathroom and other care routines, personal items, smoking policy, room service/diet, and visiting hours. Information on how to activate the Rapid Response Team has been discussed. Patient/Family are encouraged to report perceived risks to care and to ask questions if they do not understand what they are told or what they should do.
[2025-03-26] MEDS: SODIUM CHLORIDE 0.9% IV 1,000 ML 100 ML IV CONT (16:50)
[2025-03-26 16:51] VITALS: BP 135/70; PULSE 95; RESP 19; TEMP 36.2; O2SAT 100
[2025-03-26 20:34] LABS: Hematocrit 38.5 % (37.0-47.0); Hemoglobin 12.5 g/dL (12.0-15.0)
[2025-03-26 20:39] VITALS: BP 97/63; PULSE 99; RESP 20; TEMP 36.3; O2SAT 96
[2025-03-26] MEDS: ROSUVASTATIN 20 MG TABLET PO (22:01)
--- NOTE | 2025-03-27 01:39 | PM.IMHP ---
H&P: HPI History of Present Illness Date/Time: 03/26/251929 Chief Complaint: Dark stool Narrative: 79-year-old female with a past medical history of anxiety, TIA, HTN, headaches, GERD, DM2, recent MO presents to the ED on 03/26 with complaints of dark stool that occurred today. Patient states this is the first time this has occurred for her. Patient also endorses some mild abdominal discomfort. Patient had an acute MO on 01/14/2025 and underwent cardiac catheterization with 1 stent to the LAD. Echo revealed severely reduced left ventricular systolic function estimated at 25-30%. She was recommended to wear LifeVest but refused. She also developed AFib while hospitalized. Patient was discharged on Eliquis and Plavix. Rectal exam in ED positive for dark red blood. Initial vital signs 91/56, HR 95, respirations 20, afebrile and 94% on room air WBC revealed no leukocytosis and hemoglobin of 14.6. BUN 20, creatinine 1, GFR 53. UA with 3+ glucose, 1+ leukocyte Estrace, WBC 51-100, 1+ bacteria. Abdomen pelvis CT reads no acute intra-abdominal/pelvic process. Diverticulosis Review of Systems Review of Systems: All systems reviewed & are unremarkable except as noted in HPI and below PMFSH Past Medical History Medical History Haemophilus infection Hypotension Anxiety and depression TIA (transient ischemic attack) 2012 HTN (hypertension) Hypomagnesemia Screening for colon cancer Mini stroke (~2012) Chronic headaches Acid reflux Diabetes Arthritis Surgical History Surgical History History of hand surgery trigger finger -right 3rd finger x3 History of bladder suspension procedure History of arthroscopy of left knee H/O: hysterectomy (~1979) Family History Family History Father Hypertension Mother Breast cancer Social History Social History Social History: Patient declined SDOH 02/12/24 Smoking status: Former smoker Additional smoking assessment comments: quit smoking about 40 years ago Alcohol intake: current Drinks per week: 1 Alcohol use details: OCC. Substance use: never Substance use type: does not use Do You Feel Safe in your Home?: Yes Lack of Transportation: No Lack of Food: Never True Current Housing: I Have Housing Concerned About Future Housing: No Difficulty Paying Gas/Electric Bills: No Difficulty Paying for Meds: No Currently Unemployed: No Education: High School Diploma/GED Difficulty w/ Childcare or Family Care: No Living arrangements: alone Occupation/Education: retired Gender identity (if verbalized by the patient): Female Spiritual care concerns: No Agree to blood products: Yes Meds Home Medications and Allergies Home Medications ?Medication ?Instructions ?Recorded ?Confirmed ?Type acetaminophen 500 mg tablet 500 mg PO Q6H PRN fever or pain 07/03/24 03/26/25 History pen needle, diabetic 32 gauge x #400 ea 07/22/24 03/26/25 Rx (Chante Pen Needle) 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,referral agent,cont #1 ea 10/26/24 03/26/25 Rx (FreeStyle [place] 3 [place]) linagliptin 5 mg tablet (Tradjenta) 5 mg PO QAM #90 tabs 01/12/25 03/26/25 Rx empagliflozin 10 mg tablet 10 mg PO DAILY #30 tabs 02/01/25 03/26/25 Rx (Jardiance) rosuvastatin 20 mg tablet 20 mg PO QHS #30 tabs 02/01/25 03/26/25 Rx magnesium oxide 400 mg (241.3 mg 400 mg PO DAILY #90 tabs 02/02/25 03/26/25 Rx magnesium) tablet glucagon 1 mg/0.2 mL subcutaneous 1 mg (0.2 mL) subcut ONCE PRN 02/11/25 03/26/25 Rx auto-injector (Gvoke HypoPen hypoglycemia #0.4 mL 2-Pack) glucose 4 gram chewable tablet 16 g (4 x 4 gram) PO Q15M PRN 02/11/25 03/26/25 Rx (Dex4 Glucose) hypoglycemia #60 tabs metoprolol succinate 25 mg 25 mg PO QAM #30 tabs 02/13/25 03/26/25 Rx tablet,extended release 24 hr (Toprol XL) insulin glargine 100 unit/mL (3 16 unit subcut QPM 02/15/25 03/26/25 History mL) subcutaneous pen (Basaglar KwikPen U-100 Insulin) venlafaxine 150 mg 150 mg PO DAILY #90 caps 02/15/25 03/26/25 Rx capsule,extended release 24 hr clopidogrel 75 mg tablet 75 mg PO DAILY #30 tabs 03/04/25 03/26/25 Rx apixaban 5 mg tablet (Eliquis) 5 mg PO BID #180 tabs 03/23/25 03/26/25 Rx 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 sensor (FreeStyle #2 ea 03/25/25 03/26/25 Rx James 3 Plus Sensor device) sacubitril 24 mg-valsartan 26 mg 1 tablet PO BID 03/26/25 03/26/25 History tablet (Entresto) Allergies Allergy/AdvReac Type Severity Reaction Status Date / Time Penicillins Allergy Mild Swelling Verified 03/26/25 16:18 pentazocine Allergy Mild Unknown Verified 03/26/25 16:18 albuterol Allergy syncope Verified 03/26/25 16:18 aspirin Allergy Swelling Verified 03/26/25 16:18 codeine Allergy Numbness Verified 03/26/25 16:18 Sulfa (Sulfonamide Allergy Unknown Verified 03/26/25 16:18 Antibiotics) ibuprofen AdvReac GI upset Verified 03/26/25 16:18 Vital Signs Vital Signs - 24 hr 03/26/25 11:37 03/26/25 14:00 03/26/25 15:00 Temperature 97.9 F Pulse Rate 95 83 91 Respiratory Rate 20 19 20 Blood Pressure 91/56 L 95/53 L 94/74 L Pulse Oximetry 94 94 95 Oxygen Delivery Room Air 03/26/25 16:51 03/26/25 18:25 03/26/25 20:00 Temperature 97.2 F L Pulse Rate 95 Respiratory Rate 19 Blood Pressure 135/70 Pulse Oximetry 100 Oxygen Delivery Room Air Room Air 03/26/25 20:39 Temperature 97.4 F L Pulse Rate 99 Respiratory Rate 20 Blood Pressure 97/63 L Pulse Oximetry 96 Oxygen Delivery Exam Narrative: GENERAL: non-toxic appearing, in no acute distress. HEAD: Normocephalic, atraumatic. EYES: PERRLA. Conjunctivae clear. NOSE: Normal no drainage. THROAT: Pharynx clear, no exudate. NECK: Trachea midline. No adenopathy, no masses. RESPIRATORY: Airway patent, respirations nonlabored. CTA. CARDIOVASCULAR: Regular rate and rhythm BREASTS: Defer GASTROINTESTINAL: Abdomen is soft and nontender. No organomegaly. Bowel sounds normal in all quadrants. GENITOURINARY: Defer MUSCULOSKELETAL: Moves all extremities. No gross deformities. SKIN: Warm, dry, normal color. NEURO: A&O X4. Speech clear PSYCHIATRIC: Normal interaction H&P: Results Labs Labs: Short CBC 03/26/25 03/26/25 03/26/25 Range/Units 12:24 14:36 20:25 WBC 8.7 (4.5-10.0) K/mm3 Hgb 14.6 13.5 12.5 (12.0-15.0) g/dL Hct 44.6 41.1 38.5 (37.0-47.0) % Plt Count 279 (150-375) k/mm3 BMP 03/26/25 12:24 Sodium 138 Potassium 4.3 Chloride 105 Carbon Dioxide 24 BUN 20 H Creatinine 1.00 Glucose 191 H Calcium 8.7 Liver Function 03/26/25 Range/Units 12:24 Total Bilirubin 0.6 (0.2-1.3) mg/dL AST 28 (14-36) U/L ALT 15 (6-35) U/L Alkaline Phosphatase 73 (38-126) U/L Albumin 3.8 (3.5-5.1) g/dL Urine 03/26/25 Range/Units 14:36 Urine Color Yellow (Yellow) Urine Appearance Clear (Clear) Urine pH 5.0 (5.0-9.0) Ur Specific [place] > 1.045 H (1.001-1.035) Urine Protein Negative (Negative) mg/dL Urine Glucose (UA) 3+ H (Negative) mg/dL Assessment and Plan Assessment and plan (1) Rectal bleed: Code(s): K62.5 - Hemorrhage of anus and rectum Status: Acute Assessment and Plan: New onset lower GI bleed. Patient recently started on Eliquis and Plavix post MO in January. No obvious etiology on abdominal pelvic CT. Rectal exam in ED positive for dark red blood. -GI consult; await recommendations -monitor stool -serial H&H. Transfuse as required (2) Diabetes: Qualifiers: Diabetes mellitus type: type 2 Diabetes mellitus detention insulin use: with termite control representative use Diabetes mellitus complication status: without complication Qualified Code(s): E11.9 - Type 2 diabetes mellitus without complications; Z79.4 - skilled nursing (current) use of insulin Code(s): E11.9 - Type 2 diabetes mellitus without complications Status: Chronic Assessment and Plan: - hypoglycemia protocol - POC blood glucose ACHS - home medication: Jardiance, Lantus - correct regimen ordered: Low-dose corrective scale (3) Ischemic cardiomyopathy: Code(s): I25.5 - Ischemic cardiomyopathy Status: Chronic Assessment and Plan: Recent MO with stent to the LAD. Echo on 01/20/2025: 1. Left ventricular chamber dimension is mildly enlarged. 2. Left ventricular systolic function is severely reduced, estimated at 25-30. 3. There is mildly increased left ventricular wall thickness. 4. The anteroseptal wall, apical septum, apical cap, mid anterior wall, and mid inferoseptal are akinetic. 5. The inferior wall, inferolateral wall, basal anterior wall, and basal inferoseptal are hypokinetic. 6. 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 -patient refused LifeVest at discharge. -continue Entresto, metoprolol, Jardiance -monitor BP as patient tends to run low (4) Anxiety and depression: Code(s): F41.9 - Anxiety disorder, unspecified; F32.A - Depression, unspecified Status: Chronic Assessment and Plan: Continue Effexor daily (5) Bacteria in urine: Code(s): R82.71 - Bacteriuria Status: Acute Assessment and Plan: UA with 3+ glucose, 1+ leukocyte Estrace, WBC 51-100, 1+ bacteria. Patient has a history of frequent UTIs. Denies UTI symptoms, no leukocytosis, no fever. Await urine culture. Plan Diet: Clear liquids GI prophylaxis: NA DVT prophylaxis: SCDs lines/drains: PIV Fluids: 2 L bolus and 80-NS at 100 Code status: Full Quality VTE Prophylaxis VTE prophylaxis: mechanical ordered Hospitalist MIPS Advance Care Plan I have confirmed that the patient's Advanced Care Plan is present, code status is documented, or surrogate decision maker is listed in patient medical record.: Yes Medication Reconciliation I have utilized all available resources to obtain, update and review the patients current medications (includes all prescriptions, OTC, herbals, cannabis, and nutritional supplements).: Yes
[2025-03-27 02:39] LABS: Hematocrit 41.4 % (37.0-47.0); Hemoglobin 13.0 g/dL (12.0-15.0)
[2025-03-27] MEDS: SODIUM CHLORIDE 0.9% IV 1,000 ML 100 ML IV CONT ×2 (03:25→13:37)
[2025-03-27 05:14] VITALS: BP 92/58; PULSE 98; RESP 20; TEMP 36.3; O2SAT 93
[2025-03-27 06:04] LABS: Hematocrit 39.5 % (37.0-47.0); Hemoglobin 12.6 g/dL (12.0-15.0); Immature Granulocyte Percent A 0.5 % (0-0.5); Lymphocytes Absolute Auto 1.98 K/mm3 (0.9-3.2); Mean Corpuscular HGB Conc 31.9 g/dl (32-36); Mean Corpuscular Hemoglobin 31.2 pg (26-34); Mean Corpuscular Volume 97.8 fl (80-100); Nucleated Red Blood Cells Absolute Auto 0.000 K/mm3 (0.0-0.012); Nucleated Red Blood Cells Perc 0.0 % (0.0-0.2); Platelet Count Result 233 k/mm3 (150-375); Red Blood Count 4.04 M/mm3 (4.2-5.4); White Blood Count 7.8 K/mm3 (4.5-10.0)
[2025-03-27 06:33] LABS: Anion Gap 6 mmol/L (4-12); Blood Urea Nitrogen 14 mg/dL (7-17); Calcium 8.1 mg/dL (8.4-10.2); Carbon Dioxide 21 mmol/L (22-30); Chloride 110 mmol/L (98-107); Estimated CRCL calculation 47 ml/min; Estimated Glomerular Filt Rate > 60; Glucose 131 mg/dL (65-110); Potassium 3.9 mmol/L (3.4-5.0); Sodium 137 mmol/L (137-145)
--- NOTE | 2025-03-27 07:58 | PM.IMPN ---
Progress Note: A&P Assessment and Plan (1) Rectal bleed: Code(s): K62.5 - Hemorrhage of anus and rectum Status: Acute Assessment and Plan: New onset lower GI bleed. Patient recently started on Eliquis and Plavix post ID in January. No obvious etiology on abdominal pelvic CT. Rectal exam in ED positive for dark red blood. -GI consult; await recommendations -monitor stool - patient reports no bowel movements since admission -serial H&H. Transfuse as required -H&H appears stable -clear liquid diet -continue to hold Eliquis and Plavix (2) Diabetes: Qualifiers: Diabetes mellitus complication status: without complication Diabetes mellitus joint terminal attack controller insulin use: with joint terminal attack controller use Diabetes mellitus type: type 2 Qualified Code(s): E11.9 - Type 2 diabetes mellitus without complications; Z79.4 - intermediate teacher (current) use of insulin Code(s): E11.9 - Type 2 diabetes mellitus without complications Status: Chronic Assessment and Plan: - hypoglycemia protocol - POC blood glucose ACHS - home medication: Jardiance, Lantus - correct regimen ordered: Low-dose corrective scale (3) Ischemic cardiomyopathy: Code(s): I25.5 - Ischemic cardiomyopathy Status: Chronic Assessment and Plan: Recent ID with stent to the LAD. Echo on 01/20/2025: 1. Left ventricular chamber dimension is mildly enlarged. 2. Left ventricular systolic function is severely reduced, estimated at 25-30. 3. There is mildly increased left ventricular wall thickness. 4. The anteroseptal wall, apical septum, apical cap, mid anterior wall, and mid inferoseptal are akinetic. 5. The inferior wall, inferolateral wall, basal anterior wall, and basal inferoseptal are hypokinetic. 6. 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 -patient refused LifeVest at discharge. -continue Entresto, metoprolol, Jardiance -monitor BP as patient tends to run low (4) Anxiety and depression: Code(s): F41.9 - Anxiety disorder, unspecified; F32.A - Depression, unspecified Status: Chronic Assessment and Plan: Continue Effexor daily (5) Bacteria in urine: Code(s): R82.71 - Bacteriuria Status: Acute Assessment and Plan: UA with 3+ glucose, 1+ leukocyte Estrace, WBC 51-100, 1+ bacteria. Patient has a history of frequent UTIs. Denies UTI symptoms, no leukocytosis, no fever. Await urine culture. Plan Diet: Clear liquids GI prophylaxis: NA DVT prophylaxis: SCDs lines/drains: PIV Fluids: SLIV Code status: Full Subjective Date/time seen: 03/27/25 07:58 Interval history: Patient seen for a follow up visit. Patient lying in bed, in no acute distress. GI consult pending. Patient denies acute pain. Patient denies additional bowel movements since admission. H&H appears stable. Clear liquid diet. Review of Systems Review of Systems: All systems reviewed & are unremarkable except as noted in HPI and below Exam Narrative: GENERAL: non-toxic appearing, in no acute distress. HEAD: Normocephalic, atraumatic. EYES: PERRLA. Conjunctivae clear. NOSE: Normal no drainage. THROAT: Pharynx clear, no exudate. NECK: Trachea midline. No adenopathy, no masses. RESPIRATORY: Airway patent, respirations nonlabored. CTA. CARDIOVASCULAR: Regular rate and rhythm GASTROINTESTINAL: Abdomen is soft and nontender. No organomegaly. Bowel sounds normal in all quadrants. GENITOURINARY: Defer MUSCULOSKELETAL: Moves all extremities. No gross deformities. SKIN: Warm, dry, normal color. NEURO: A&O X4. Speech clear PSYCHIATRIC: Normal interaction Objective Data Vital Signs Vital Signs: Vital Signs - 24 hr 03/26/25 11:37 03/26/25 14:00 03/26/25 15:00 Temperature 97.9 F Pulse Rate 95 83 91 Respiratory Rate 20 19 20 Blood Pressure 91/56 L 95/53 L 94/74 L Pulse Oximetry 94 94 95 Oxygen Delivery Room Air 03/26/25 16:51 03/26/25 18:25 03/26/25 20:00 Temperature 97.2 F L Pulse Rate 95 Respiratory Rate 19 Blood Pressure 135/70 Pulse Oximetry 100 Oxygen Delivery Room Air Room Air 03/26/25 20:39 03/27/25 05:14 Temperature 97.4 F L 97.4 F L Pulse Rate 99 98 Respiratory Rate 20 20 Blood Pressure 97/63 L 92/58 L Pulse Oximetry 96 93 Oxygen Delivery Intake/Output Intake/Output: Intake & Output 03/24/25 03/25/25 03/26/25 03/27/25 23:59 23:59 23:59 23:59 Intake Total 344 1150 Balance 344 1150 Meds/Results Medications: Active Medications Generic Name Dose Route Start Last Admin Trade Name Freq PRN Reason Stop Dose Admin Acetaminophen 650 mg 03/26/25 14:10 Acetaminophen 325 Mg Tablet PO Q4H PRN Mild Pain (1-3) or Fever Acetaminophen 500 mg 03/26/25 17:28 Acetaminophen 500 Mg Tablet PO Q6H PRN fever or pain Dextrose 12.5 gm 03/26/25 17:29 Dextrose 50% 25 Gm/50 Ml Syringe IV PUSH PRN PRN Hypoglycemia Protocol Empagliflozin 10 mg 03/27/25 09:00 Empagliflozin 10 Mg Tablet PO DAILY DOYLE Glucagon 1 mg 03/26/25 17:29 Glucagon For Inj 1 Mg Vial IM PRN PRN Hypoglycemia Protocol Glucose 15 gm 03/26/25 17:29 Glucose Oral Gel 15 Gm Of Glucse In 37.5 Gm Tube PO PRN PRN Hypoglycemia Protocol Sodium Chloride 1,000 mls @ 100 mls/hr 03/26/25 14:10 03/27/25 03:25 Normal Saline Iv IV CONT 100 mls/hr .Q10H DOYLE Administration Dextrose 1,000 mls @ 100 mls/hr 03/26/25 17:29 Dextrose 5% 1,000 Ml IVPB PRN PRN Hypoglycemia Protocol Insulin Aspart 2 - 5 units 03/26/25 17:30 03/27/25 07:44 Insulin Aspart (*Bkc) 100 Units/Ml SUB-Q Not Given TIDWM [facility] Protocol Magnesium Oxide 400 mg 03/27/25 09:00 Magnesium Oxide 400 Mg Tablet PO DAILY [facility] Metoprolol Succinate 25 mg 03/27/25 09:00 Metoprolol Succinate Ext Rel 25 Mg Tabcr PO QAM DOYLE Rosuvastatin Calcium 20 mg 03/26/25 21:00 03/26/25 22:01 Rosuvastatin 20 Mg Tablet PO 20 mg QHS [facility] Administration Sacubitril/Valsartan 1 tab 03/27/25 09:00 Sacubitril/Valsartan 24-26 Mg Tablet PO Q12HR [facility] Venlafaxine HCl 150 mg 03/27/25 09:00 Venlafaxine Hcl Xr 75 Mg Cap.Er.24h PO DAILY [facility] Radiology Results: ITS Impressions Abdomen/Pelvis CT 11/21/25 13:24 IMPRESSION: 1. . No acute intra-abdominal/pelvic process. 2. Diverticulosis. Labs Labs: Laboratory Results - last 24 hr 03/26/25 03/26/25 03/26/25 12:24 12:26 14:36 WBC 8.7 RBC 4.65 Hgb 14.6 13.5 Hct 44.6 41.1 MCV 95.9 MCH 31.4 MCHC 32.7 RDW 13.5 Plt Count 279 MPV 10.2 Immature Gran % (Auto) 0.5 Neut % (Auto) 72.7 Lymph % (Auto) 14.8 L [place] % (Auto) 9.2 H Eos % (Auto) 2.2 Baso % (Auto) 0.6 Lymph # (Auto) 1.29 [place] # (Auto) 0.8 H Eos # (Auto) 0.2 Baso # (Auto) 0.1 Abs Immat Gran (auto) 0.04 H Absolute Neuts (auto) 6.3 Absolute Nucleated RBC 0.000 Nucleated RBC % 0.0 PT 16.6 H INR 1.3 APTT 43.0 H Sodium 138 Potassium 4.3 Chloride 105 Carbon Dioxide 24 Anion Gap 9 BUN 20 H Creatinine 1.00 Estim Creat Clear Calc 40 Estimated GFR 53 L Glucose 191 H POC Capillary Glucose Lactic Acid 1.6 Calcium 8.7 Total Bilirubin 0.6 AST 28 ALT 15 Alkaline Phosphatase 73 Total Protein 6.9 Albumin 3.8 Lipase 116 Urine Color Yellow Urine Appearance Clear Urine pH 5.0 Ur Specific [place] > 1.045 H Urine Protein Negative Urine Glucose (UA) 3+ H Urine Ketones Negative Ur Blood (Man) Trace Urine Nitrate Negative Urine Bilirubin Negative Urine Urobilinogen 0.2 Leukocyte Esterase Rfl 1+ H Urine RBC 0-2 Urine WBC 51-100 H Ur Squamous Epith Cells Few Urine Bacteria 1+ H Urine Casts 0-2 03/26/25 03/26/25 03/27/25 19:36 20:25 02:04 WBC RBC Hgb 12.5 13.0 Hct 38.5 41.4 MCV MCH MCHC RDW Plt Count MPV Immature Gran % (Auto) Neut % (Auto) Lymph % (Auto) [place] % (Auto) Eos % (Auto) Baso % (Auto) Lymph # (Auto) [place] # (Auto) Eos # (Auto) Baso # (Auto) Abs Immat Gran (auto) Absolute Neuts (auto) Absolute Nucleated RBC Nucleated RBC % PT INR APTT Sodium Potassium Chloride Carbon Dioxide Anion Gap BUN Creatinine Estim Creat Clear Calc Estimated GFR Glucose POC Capillary Glucose 279 H Lactic Acid Calcium Total Bilirubin AST ALT Alkaline Phosphatase Total Protein Albumin Lipase Urine Color Urine Appearance Urine pH Ur Specific [place] Urine Protein Urine Glucose (UA) Urine Ketones Ur Blood (Man) Urine Nitrate Urine Bilirubin Urine Urobilinogen Leukocyte Esterase Rfl Urine RBC Urine WBC Ur Squamous Epith Cells Urine Bacteria Urine Casts 03/27/25 03/27/25 05:50 07:36 WBC 7.8 RBC 4.04 L Hgb 12.6 Hct 39.5 MCV 97.8 MCH 31.2 MCHC 31.9 L RDW 13.4 Plt Count 233 MPV 10.3 Immature Gran % (Auto) 0.5 Neut % (Auto) 58.4 Lymph % (Auto) 25.4 [place] % (Auto) 11.7 H Eos % (Auto) 3.2 Baso % (Auto) 0.8 Lymph # (Auto) 1.98 [place] # (Auto) 0.9 H Eos # (Auto) 0.3 Baso # (Auto) 0.1 Abs Immat Gran (auto) 0.04 H Absolute Neuts (auto) 4.5 Absolute Nucleated RBC 0.000 Nucleated RBC % 0.0 PT INR APTT Sodium 137 Potassium 3.9 Chloride 110 H Carbon Dioxide 21 L Anion Gap 6 BUN 14 D Creatinine 0.86 Estim Creat Clear Calc 47 Estimated GFR > 60 Glucose 131 H POC Capillary Glucose 158 H Lactic Acid Calcium 8.1 L Total Bilirubin AST ALT Alkaline Phosphatase Total Protein Albumin Lipase Urine Color Urine Appearance Urine pH Ur Specific [place] Urine Protein Urine Glucose (UA) Urine Ketones Ur Blood (Man) Urine Nitrate Urine Bilirubin Urine Urobilinogen Leukocyte Esterase Rfl Urine RBC Urine WBC Ur Squamous Epith Cells Urine Bacteria Urine Casts Quality VTE Prophylaxis VTE prophylaxis: mechanical ordered
[2025-03-27 09:47] VITALS: BP 120/74; PULSE 100
[2025-03-27] MEDS: VENLAFAXINE HCL XR 75 MG CAP.ER.24H 150 MG PO (09:47)
[2025-03-27 09:48] VITALS: PULSE 100
[2025-03-27] MEDS: EMPAGLIFLOZIN 10 MG TABLET PO (09:48)
[2025-03-27] MEDS: SACUBITRIL/VALSARTAN 24-26 MG TABLET 1 TAB PO ×2 (09:48→20:52)
[2025-03-27] MEDS: MAGNESIUM OXIDE 400 MG TABLET PO (09:48)
[2025-03-27] MEDS: METOPROLOL SUCCINATE EXT REL 25 MG TABCR PO (09:48)
[2025-03-27] MEDS: INSULIN ASPART (*BKC) 100 UNITS/ML SUB-Q ×2 (12:02→20:52)
[2025-03-27 12:39] LABS: Hematocrit 40.4 % (37.0-47.0); Hemoglobin 13.0 g/dL (12.0-15.0)
[2025-03-27 14:15] VITALS: BP 104/67; PULSE 98; RESP 20; TEMP 37; O2SAT 97
--- NOTE | 2025-03-27 14:45 | WPDGICN ---
Assessment and Plan Assessment and plan (1) Rectal bleed: Code(s): K62.5 - Hemorrhage of anus and rectum Status: Acute Assessment and Plan: probably this could be diverticular source or perianal this is slowing down- last BM only trace blood no need to repeat colonoscopy- she just had a sigmoidoscopy 10/2024 I would continue plavix since she had recent heart stent after mi hopefully home tomorrow if no more significant bleeding h/h is stable (2) Colon, diverticulosis: Code(s): K57.30 - Diverticulosis of large intestine without perforation or abscess without bleeding Status: Acute Assessment and Plan: wonder if could be source of bleeding (3) Ischemic cardiomyopathy: Code(s): I25.5 - Ischemic cardiomyopathy Status: Chronic (4) Hx of senior living use of blood thinners: Code(s): Z79.01 - prison (current) use of anticoagulants Status: Acute GI Consult Note Consult date/time: 03/27/25 14:45 Reason for consult: rectal bleeding, diverticulosis HPI: Ailyn Neff is a 79 year old female with a past medical history of anxiety, TIA, HTN, headaches, GERD, DM2, recent [place] 01/2025 that required stent currently on plavix and eliquis here with new onset of rectal bleeding. She noted dark blood in stool, no really much abdominal pain and came to ER then admitted to hospital. Hemoglobin has remained stable 13, last BM with only trace of blood. She is comfortable. She had a sigmoidoscopy 10/2024 because incontinence, noted several diveritula, no colitis or avm. ER showed no leukocytosis, BUN 20, creatinine 1. Abdomen pelvis CT reads no acute intra-abdominal/pelvic process. Diverticulosis Review of Systems Constitutional: Constitutional: Denies chills Eyes: Eyes: Denies blurry vision ENT: Reports Normal hearing present, Denies headache(s) and Denies neck pain Cardiovascular: Cardiovascular: Denies chest pain and Denies dyspnea Respiratory: Respiratory: Denies cough and Denies dyspnea Gastrointestinal: Gastrointestinal: Denies vomiting Genitourinary: Genitourinary: Denies dysuria Musculoskeletal: Musculoskeletal: Denies neck pain Integumentary/Breasts: Skin/Breast: Denies dry skin Neurologic: Reports Normal hearing present, Denies headache(s) and Denies weakness Psychiatric: Psychiatric: Denies behavioral changes PMFSH Past Medical History Medical History (Updated 03/27/25 @ 14:50 by Chris Xavier MD) Hx of senior living use of blood thinners Colon, diverticulosis Haemophilus infection Hypotension Anxiety and depression TIA (transient ischemic attack) 2012 HTN (hypertension) Hypomagnesemia Screening for colon cancer Mini stroke (~2012) Chronic headaches Acid reflux Diabetes Arthritis Surgical History Surgical History History of hand surgery trigger finger -right 3rd finger x3 History of bladder suspension procedure History of arthroscopy of left knee H/O: hysterectomy (~1979) Family History Family History Father Hypertension Mother Breast cancer Social History Social History Social History: Patient declined SDOH 02/12/24 Smoking status: Former smoker Additional smoking assessment comments: quit smoking about 40 years ago Alcohol intake: current Drinks per week: 1 Alcohol use details: OCC. Substance use: never Substance use type: does not use Do You Feel Safe in your Home?: Yes Lack of Transportation: No Lack of Food: Never True Current Housing: I Have Housing Concerned About Future Housing: No Difficulty Paying Gas/Electric Bills: No Difficulty Paying for Meds: No Currently Unemployed: No Education: High School Diploma/GED Difficulty w/ Childcare or Family Care: No Living arrangements: alone Occupation/Education: retired Gender identity (if verbalized by the patient): Female Spiritual care concerns: No Agree to blood products: Yes Meds Home Medications and Allergies Home Medications ?Medication ?Instructions ?Recorded ?Confirmed ?Type acetaminophen 500 mg tablet 500 mg PO Q6H PRN fever or pain 07/03/24 03/26/25 History pen needle, diabetic 32 gauge x #400 ea 07/22/24 03/26/25 Rx (Chante Pen Needle) 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,pipe stripper,cont #1 ea 10/26/24 03/26/25 Rx (FreeStyle James 3 [place]) linagliptin 5 mg tablet (Tradjenta) 5 mg PO QAM #90 tabs 01/12/25 03/26/25 Rx empagliflozin 10 mg tablet 10 mg PO DAILY #30 tabs 02/01/25 03/26/25 Rx (Jardiance) rosuvastatin 20 mg tablet 20 mg PO QHS #30 tabs 02/01/25 03/26/25 Rx magnesium oxide 400 mg (241.3 mg 400 mg PO DAILY #90 tabs 02/02/25 03/26/25 Rx magnesium) tablet glucagon 1 mg/0.2 mL subcutaneous 1 mg (0.2 mL) subcut ONCE PRN 02/11/25 03/26/25 Rx auto-injector (Gvoke HypoPen hypoglycemia #0.4 mL 2-Pack) glucose 4 gram chewable tablet 16 g (4 x 4 gram) PO Q15M PRN 02/11/25 03/26/25 Rx (Dex4 Glucose) hypoglycemia #60 tabs metoprolol succinate 25 mg 25 mg PO QAM #30 tabs 02/13/25 03/26/25 Rx tablet,extended release 24 hr (Toprol XL) insulin glargine 100 unit/mL (3 16 unit subcut QPM 02/15/25 03/26/25 History mL) subcutaneous pen (Basaglar KwikPen U-100 Insulin) venlafaxine 150 mg 150 mg PO DAILY #90 caps 02/15/25 03/26/25 Rx capsule,extended release 24 hr clopidogrel 75 mg tablet 75 mg PO DAILY #30 tabs 03/04/25 03/26/25 Rx apixaban 5 mg tablet (Eliquis) 5 mg PO BID #180 tabs 03/23/25 03/26/25 Rx 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 sensor (FreeStyle #2 ea 03/25/25 03/26/25 Rx James 3 Plus Sensor device) sacubitril 24 mg-valsartan 26 mg 1 tablet PO BID 03/26/25 03/26/25 History tablet (Entresto) Allergies Allergy/AdvReac Type Severity Reaction Status Date / Time Penicillins Allergy Mild Swelling Verified 03/26/25 16:18 pentazocine Allergy Mild Unknown Verified 03/26/25 16:18 albuterol Allergy syncope Verified 03/26/25 16:18 aspirin Allergy Swelling Verified 03/26/25 16:18 codeine Allergy Numbness Verified 03/26/25 16:18 Sulfa (Sulfonamide Allergy Unknown Verified 03/26/25 16:18 Antibiotics) ibuprofen AdvReac GI upset Verified 03/26/25 16:18 Vital Signs Vital Signs - 24 hr 03/26/25 15:00 03/26/25 16:51 03/26/25 18:25 Temperature 97.2 F L Pulse Rate 91 95 Respiratory Rate 20 19 Blood Pressure 94/74 L 135/70 Pulse Oximetry 95 100 Oxygen Delivery Room Air 03/26/25 20:00 03/26/25 20:39 03/27/25 05:14 Temperature 97.4 F L 97.4 F L Pulse Rate 99 98 Respiratory Rate 20 20 Blood Pressure 97/63 L 92/58 L Pulse Oximetry 96 93 Oxygen Delivery Room Air 03/27/25 09:47 03/27/25 09:48 03/27/25 10:15 Temperature Pulse Rate 100 100 Respiratory Rate Blood Pressure 120/74 Pulse Oximetry Oxygen Delivery Room Air 03/27/25 14:15 Temperature 98.6 F Pulse Rate 98 Respiratory Rate 20 Blood Pressure 104/67 Pulse Oximetry 97 Oxygen Delivery Exam Const: General: comfortable and no acute distress HENMT: Face/Nose/Sinus: Normal nares present Eyes: General: appearance normal, both eyes and all related structures Neck: Neck: supple Resp: Auscultation: clear to auscultation bilaterally Cardio: Rate: regular rate Rhythm: regular rhythm GI: Inspection: non-distended GI Palp: Yes Soft to palpation and No Tenderness to palpation present (GI) Auscultation: normal bowel sounds Skin: General skin exam: normal color Neuro: Speech: normal speech Extrem: General: normal to inspection Psych: Mental Status: mental status grossly normal Results Labs 03/27/25 12:32 03/27/25 05:50 Labs: Short CBC 03/26/25 03/26/25 03/27/25 Range/Units 14:36 20:25 02:04 WBC (4.5-10.0) K/mm3 Hgb 13.5 12.5 13.0 (12.0-15.0) g/dL Hct 41.1 38.5 41.4 (37.0-47.0) % Plt Count (150-375) k/mm3 03/27/25 03/27/25 Range/Units 05:50 12:32 WBC 7.8 (4.5-10.0) K/mm3 Hgb 12.6 13.0 (12.0-15.0) g/dL Hct 39.5 40.4 (37.0-47.0) % Plt Count 233 (150-375) k/mm3 BMP 03/27/25 05:50 Sodium 137 Potassium 3.9 Chloride 110 H Carbon Dioxide 21 L BUN 14 D Creatinine 0.86 Glucose 131 H Calcium 8.1 L Urine 03/26/25 Range/Units 14:36 Urine Color Yellow (Yellow) Urine Appearance Clear (Clear) Urine pH 5.0 (5.0-9.0) Ur Specific [place] > 1.045 H (1.001-1.035) Urine Protein Negative (Negative) mg/dL Urine Glucose (UA) 3+ H (Negative) mg/dL
[2025-03-27 20:04] VITALS: BP 99/61; PULSE 93; RESP 18; TEMP 36.4; O2SAT 97
[2025-03-27] MEDS: ROSUVASTATIN 20 MG TABLET PO (20:51)
[2025-03-28] VITALS (7 sets, daily range): BP systolic 101–122; BP diastolic 55–85; PULSE 92–112; RESP 16–20; TEMP 36.3–37.1; O2SAT 91–98
[2025-03-28 05:46] LABS: Hematocrit 40.9 % (37.0-47.0); Hemoglobin 12.9 g/dL (12.0-15.0); Immature Granulocyte Percent A 0.5 % (0-0.5); Lymphocytes Absolute Auto 1.90 K/mm3 (0.9-3.2); Mean Corpuscular HGB Conc 31.5 g/dl (32-36); Mean Corpuscular Hemoglobin 30.9 pg (26-34); Mean Corpuscular Volume 97.8 fl (80-100); Nucleated Red Blood Cells Absolute Auto 0.000 K/mm3 (0.0-0.012); Nucleated Red Blood Cells Perc 0.0 % (0.0-0.2); Platelet Count Result 224 k/mm3 (150-375); Red Blood Count 4.18 M/mm3 (4.2-5.4); White Blood Count 8.6 K/mm3 (4.5-10.0)
[2025-03-28 06:05] LABS: Alanine Aminotransferase 13 U/L (6-35); Albumin Level 3.3 g/dL (3.5-5.1); Alkaline Phosphatase 75 U/L (38-126); Anion Gap 7 mmol/L (4-12); Aspartate Amino Transferase 28 U/L (14-36); Bilirubin,Total 0.6 mg/dL (0.2-1.3); Blood Urea Nitrogen 13 mg/dL (7-17); Calcium 8.6 mg/dL (8.4-10.2); Carbon Dioxide 22 mmol/L (22-30); Chloride 110 mmol/L (98-107); Estimated CRCL calculation 46 ml/min; Estimated Glomerular Filt Rate > 60; Glucose 165 mg/dL (65-110); Potassium 3.5 mmol/L (3.4-5.0); Sodium 139 mmol/L (137-145); Total Protein 6.1 g/dL (6.3-8.2)
--- NOTE | 2025-03-28 08:38 | P.PNIM_ITS ---
Progress Note: A&P Assessment and Plan (1) Rectal bleed: Code(s): K62.5 - Hemorrhage of anus and rectum Status: Acute Assessment and Plan: New onset lower GI bleed. Patient recently started on Eliquis and Plavix post OR in January. No obvious etiology on abdominal pelvic CT. Rectal exam in ED positive for dark red blood. -GI consult; possible scope on Saturday -monitor stool -serial H&H. Transfuse for hemoglobin less than 7 or symptomatic -H&H appears stable -okay for diet NPO midnight -continue to hold Eliquis and Plavix Gentle IV hydration as patient is not taking much p.o. 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 Echo on 01/20/2025: EF 25-30. 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 -patient refused LifeVest at discharge. -continue Entresto, metoprolol, Jardiance -monitor BP as patient tends to run low (4) Anxiety and depression: Code(s): F41.9 - Anxiety disorder, unspecified; F32.A - Depression, unspecified Status: Chronic Assessment and Plan: Continue Effexor daily (5) Bacteria in urine: Code(s): R82.71 - Bacteriuria Status: Acute Assessment and Plan: UA with 3+ glucose, 1+ leukocyte Estrace, WBC 51-100, 1+ bacteria. Patient has a history of frequent UTIs. Denies UTI symptoms, no leukocytosis, no fever. Culture pending Deferring antibiotics at this time Plan Diet: NPO midnight GI prophylaxis: NA DVT prophylaxis: SCDs lines/drains: PIV Fluids: SLIV Code status: Full Subjective Date/time seen: 03/28/25 08:38 Interval history: 79-year-old female with a past medical history of anxiety, TIA, HTN, headaches, GERD, DM2, recent OR presents to the ED on 03/26 with complaints of dark stool found to have rectal bleeding with GI consulted. Call this morning by nursing for patient having large bloody bowel movement this morning. , holding Plavix and Eliquis. Patient complaining of dizziness and Colace this morning, still having bloody bowel movements with clots, hemoglobin stable Review of Systems Review of Systems: 12 systems were reviewed and are negativ e except for as per HPI. All systems reviewed & are unremarkable except as noted in HPI and below Exam Narrative: General: Ill-appearing HEENT: normocephalic, atraumatic. Mucous membranes moist. EOMI, PERRLA, bilateral sclera anicteric, no conjunctival injection. Neck supple without JVD, lymphadenopathy, or bruit. Respiratory: clear bilaterally. No rales/rhonic/wheezes. Cardiovascular: Regular rate and rhythm, normal S1-S2. No murmurs, rubs, or clicks. PMI is nondisplaced, capillary refill less than 3 second. Abdomen: Soft, round, no pulsatile masses, nondistended and nontender. No rebound, no guarding. Bowel sounds present to all four quadrants. No high pitch or tinkling sounds, resonant to percussion. Extremities: No cyanosis, clubbing, or edema present. Pulses are palpable 2/2. Active ROM to all four extremities. Neuro: Alert and orientated x 4. PERRLA. Cranial nerves 2-12 intact without focal deficit. Skin: Warm, dry, and intact, without rash, erythema, or lesion. Psych: pleasant, cooperative, normal speech, normal affect, no hallucinations, no dysarthia Objective Data Vital Signs Vital Signs: Vital Signs - 24 hr 03/27/25 09:47 03/27/25 09:48 03/27/25 10:15 Temperature Pulse Rate 100 100 Respiratory Rate Blood Pressure 120/74 Pulse Oximetry Oxygen Delivery Room Air 03/27/25 14:15 03/27/25 20:00 03/27/25 20:04 Temperature 98.6 F 97.5 F L Pulse Rate 98 93 Respiratory Rate 20 18 Blood Pressure 104/67 99/61 L Pulse Oximetry 97 97 Oxygen Delivery Room Air 03/28/25 05:38 03/28/25 08:23 Temperature 97.3 F L Pulse Rate 99 Respiratory Rate 16 Blood Pressure 101/55 L Pulse Oximetry 91 94 Oxygen Delivery Room Air Intake/Output Intake/Output: Intake & Output 03/25/25 03/26/25 03/27/25 03/28/25 23:59 23:59 23:59 23:59 Intake Total 344 3668 440 Balance 344 3668 440 Meds/Results Medications: Active Medications Generic Name Dose Route Start Last Admin Trade Name Freq PRN Reason Stop Dose Admin Acetaminophen 650 mg 03/26/25 14:10 Acetaminophen 325 Mg Tablet PO Q4H PRN Mild Pain (1-3) or Fever Acetaminophen 500 mg 03/26/25 17:28 Acetaminophen 500 Mg Tablet PO Q6H PRN fever or pain Clopidogrel Bisulfate 75 mg 03/28/25 09:00 Clopidogrel Bisulfate 75 Mg Tablet PO QAM DOYLE Dextrose 12.5 gm 03/26/25 17:29 Dextrose 50% 25 Gm/50 Ml Syringe IV PUSH PRN PRN Hypoglycemia Protocol Empagliflozin 10 mg 03/27/25 09:00 03/27/25 09:48 Empagliflozin 10 Mg Tablet PO 10 mg DAILY DOYLE Administration Glucagon 1 mg 03/26/25 17:29 Glucagon For Inj 1 Mg Vial IM PRN PRN Hypoglycemia Protocol Glucose 15 gm 03/26/25 17:29 Glucose Oral Gel 15 Gm Of Glucse In 37.5 Gm Tube PO PRN PRN Hypoglycemia Protocol Dextrose 1,000 mls @ 100 mls/hr 03/26/25 17:29 Dextrose 5% 1,000 Ml IVPB PRN PRN Hypoglycemia Protocol Insulin Aspart 2 - 5 units 03/26/25 17:30 03/28/25 08:00 Insulin Aspart (*Bkc) 100 Units/Ml SUB-Q Not Given [facility] Protocol Insulin Aspart 1 - 2 units 03/27/25 21:00 03/27/25 20:52 Insulin Aspart (*Bkc) 100 Units/Ml SUB-Q 1 units HS DOYLE Administration Protocol Magnesium Oxide 400 mg 03/27/25 09:00 03/27/25 09:48 Magnesium Oxide 400 Mg Tablet PO 400 mg DAILY DOYLE Administration Metoprolol Succinate 25 mg 03/27/25 09:00 03/27/25 09:48 Metoprolol Succinate Ext Rel 25 Mg Tabcr PO 25 mg QAM DOYLE Administration Rosuvastatin Calcium 20 mg 03/26/25 21:00 03/27/25 20:51 Rosuvastatin 20 Mg Tablet PO 20 mg QHS DOYLE Administration Sacubitril/Valsartan 1 tab 03/27/25 09:00 03/27/25 20:52 Sacubitril/Valsartan 24-26 Mg Tablet PO 1 tab Q12HR DOYLE Administration Venlafaxine HCl 150 mg 03/27/25 09:00 03/27/25 09:47 Venlafaxine Hcl Xr 75 Mg Cap.Er.24h PO 150 mg DAILY DOYLE Administration Radiology Results: ITS Impressions Abdomen/Pelvis CT 03/26/25 13:24 IMPRESSION: 1. . No acute intra-abdominal/pelvic process. 2. Diverticulosis. Labs Labs: Laboratory Results - last 24 hr 03/27/25 03/27/25 03/27/25 11:39 12:32 16:20 WBC RBC Hgb 13.0 Hct 40.4 MCV MCH MCHC RDW Plt Count MPV Immature Gran % (Auto) Neut % (Auto) Lymph % (Auto) [place] % (Auto) Eos % (Auto) Baso % (Auto) Lymph # (Auto) [place] # (Auto) Eos # (Auto) Baso # (Auto) Abs Immat Gran (auto) Absolute Neuts (auto) Absolute Nucleated RBC Nucleated RBC % Sodium Potassium Chloride Carbon Dioxide Anion Gap BUN Creatinine Estim Creat Clear Calc Estimated GFR Glucose POC Capillary Glucose 314 H 173 H Calcium Total Bilirubin AST ALT Alkaline Phosphatase Total Protein Albumin 03/27/25 03/27/25 03/28/25 19:33 20:50 05:36 WBC 8.6 RBC 4.18 L Hgb 12.9 Hct 40.9 MCV 97.8 MCH 30.9 MCHC 31.5 L RDW 13.5 Plt Count 224 MPV 10.0 Immature Gran % (Auto) 0.5 Neut % (Auto) 61.8 Lymph % (Auto) 22.0 [place] % (Auto) 10.9 H Eos % (Auto) 4.3 Baso % (Auto) 0.5 Lymph # (Auto) 1.90 [place] # (Auto) 0.9 H Eos # (Auto) 0.4 H Baso # (Auto) 0.0 Abs Immat Gran (auto) 0.04 H Absolute Neuts (auto) 5.3 Absolute Nucleated RBC 0.000 Nucleated RBC % 0.0 Sodium 139 Potassium 3.5 Chloride 110 H Carbon Dioxide 22 Anion Gap 7 BUN 13 Creatinine 0.88 Estim Creat Clear Calc 46 Estimated GFR > 60 Glucose 165 H POC Capillary Glucose 352 H 234 H Calcium 8.6 Total Bilirubin 0.6 AST 28 ALT 13 Alkaline Phosphatase 75 Total Protein 6.1 L Albumin 3.3 L 03/28/25 07:38 WBC RBC Hgb Hct MCV MCH MCHC RDW Plt Count MPV Immature Gran % (Auto) Neut % (Auto) Lymph % (Auto) [place] % (Auto) Eos % (Auto) Baso % (Auto) Lymph # (Auto) [place] # (Auto) Eos # (Auto) Baso # (Auto) Abs Immat Gran (auto) Absolute Neuts (auto) Absolute Nucleated RBC Nucleated RBC % Sodium Potassium Chloride Carbon Dioxide Anion Gap BUN Creatinine Estim Creat Clear Calc Estimated GFR Glucose POC Capillary Glucose 192 H Calcium Total Bilirubin AST ALT Alkaline Phosphatase Total Protein Albumin Quality VTE Prophylaxis VTE prophylaxis: mechanical ordered If No VTE Prophylaxis Answer both mechanical and pharmacologic: Reason no pharmacologic proph: medical contraindication Hospitalist MIPS Advance Care Plan I have confirmed that the patient's Advanced Care Plan is present, code status is documented, or surrogate decision maker is listed in patient medical record.: Yes Medication Reconciliation I have utilized all available resources to obtain, update and review the patients current medications (includes all prescriptions, OTC, herbals, cannabis, and nutritional supplements).: Yes
[2025-03-28] MEDS: MAGNESIUM OXIDE 400 MG TABLET PO (09:01)
[2025-03-28] MEDS: VENLAFAXINE HCL XR 75 MG CAP.ER.24H 150 MG PO (09:01)
[2025-03-28] MEDS: METOPROLOL SUCCINATE EXT REL 25 MG TABCR PO (09:01)
[2025-03-28] MEDS: EMPAGLIFLOZIN 10 MG TABLET PO (09:01)
[2025-03-28 09:15] LABS: Hematocrit 40.5 % (37.0-47.0); Hemoglobin 13.0 g/dL (12.0-15.0)
[2025-03-28] MEDS: INSULIN ASPART (*BKC) 100 UNITS/ML SUB-Q ×2 (11:47→21:19)
[2025-03-28 12:21] LABS: Hematocrit 41.5 % (37.0-47.0); Hemoglobin 13.2 g/dL (12.0-15.0)
--- NOTE | 2025-03-28 12:27 | P.PNGI_ITS ---
Progress Note: A&P Assessment and Plan (1) Rectal bleed: Code(s): K62.5 - Hemorrhage of anus and rectum Status: Acute Assessment and Plan: I think this is most likely diverticular source patient is worried about since she leaves alone and would like to have more clarity, she is ok to have colonoscopy tomorrow- she is aware that often when patients have diverticula bleed is difficult to find culprit unless is actively bleeding during procedure will give bowel prep keep holding eliquis h/h has been stable (2) Colon, diverticulosis: Code(s): K57.30 - Diverticulosis of large intestine without perforation or abscess without bleeding Status: Acute (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: Code(s): Z79.01 - FPC (current) use of anticoagulants Status: Acute (4) Ischemic cardiomyopathy: Code(s): I25.5 - Ischemic cardiomyopathy Status: Chronic Subjective Date/time seen: 03/28/25 12:27 Interval history: had two more BM with clots, also lightheaded Review of Systems Review of Systems: All systems reviewed & are unremarkable except as noted in HPI and below Exam Const: General: comfortable and no acute distress HENMT: Face/Nose/Sinus: Normal nares present Eyes: General: appearance normal, both eyes and all related structures Neck: Neck: supple Resp: Auscultation: clear to auscultation bilaterally Cardio: Rate: regular rate Rhythm: regular rhythm GI: Inspection: non-distended GI Palp: Yes Soft to palpation and No Tenderness to palpation present (GI) Auscultation: normal bowel sounds Skin: General skin exam: normal color Neuro: Speech: normal speech Extrem: General: normal to inspection Psych: Mental Status: mental status grossly normal Objective Data Vital Signs Vital Signs: Vital Signs - 24 hr 03/27/25 14:15 03/27/25 20:00 03/27/25 20:04 Temperature 98.6 F 97.5 F L Pulse Rate 98 93 Respiratory Rate 20 18 Blood Pressure 104/67 99/61 L Pulse Oximetry 97 97 Oxygen Delivery Room Air 03/28/25 05:38 03/28/25 08:23 03/28/25 09:00 Temperature 97.3 F L Pulse Rate 99 Respiratory Rate 16 Blood Pressure 101/55 L Pulse Oximetry 91 94 Oxygen Delivery Room Air Room Air 03/28/25 09:01 03/28/25 11:49 Temperature Pulse Rate 100 112 H Respiratory Rate 20 Blood Pressure 122/85 Pulse Oximetry 97 Oxygen Delivery Intake/Output Intake/Output: Intake & Output 03/25/25 03/26/25 03/27/25 03/28/25 23:59 23:59 23:59 23:59 Intake Total 344 3668 560 Balance 344 3668 560 Meds/Results Medications: Active Medications Generic Name Dose Route Start Last Admin Trade Name Freq PRN Reason Stop Dose Admin Acetaminophen 650 mg 03/26/25 14:10 Acetaminophen 325 Mg Tablet PO Q4H PRN Mild Pain (1-3) or Fever Acetaminophen 500 mg 03/26/25 17:28 Acetaminophen 500 Mg Tablet PO Q6H PRN fever or pain Clopidogrel Bisulfate 75 mg 03/28/25 09:00 03/28/25 11:47 Clopidogrel Bisulfate 75 Mg Tablet PO Not Given QAM DOYLE Dextrose 12.5 gm 03/26/25 17:29 Dextrose 50% 25 Gm/50 Ml Syringe IV PUSH PRN PRN Hypoglycemia Protocol Empagliflozin 10 mg 03/27/25 09:00 03/28/25 09:01 Empagliflozin 10 Mg Tablet PO 10 mg DAILY DOYLE Administration Glucagon 1 mg 03/26/25 17:29 Glucagon For Inj 1 Mg Vial IM PRN PRN Hypoglycemia Protocol Glucose 15 gm 03/26/25 17:29 Glucose Oral Gel 15 Gm Of Glucse In 37.5 Gm Tube PO PRN PRN Hypoglycemia Protocol Dextrose 1,000 mls @ 100 mls/hr 03/26/25 17:29 Dextrose 5% 1,000 Ml IVPB PRN PRN Hypoglycemia Protocol Insulin Aspart 2 - 5 units 03/26/25 17:30 03/28/25 11:47 Insulin Aspart (*Bkc) 100 Units/Ml SUB-Q 2 units TIDWM DOYLE Administration Protocol Insulin Aspart 1 - 2 units 03/27/25 21:00 03/27/25 20:52 Insulin Aspart (*Bkc) 100 Units/Ml SUB-Q 1 units HS DOYLE Administration Protocol Magnesium Oxide 400 mg 03/27/25 09:00 03/28/25 09:01 Magnesium Oxide 400 Mg Tablet PO 400 mg DAILY DOYLE Administration Metoprolol Succinate 25 mg 03/27/25 09:00 03/28/25 09:01 Metoprolol Succinate Ext Rel 25 Mg Tabcr PO 25 mg QAM DOYLE Administration Rosuvastatin Calcium 20 mg 03/26/25 21:00 03/27/25 20:51 Rosuvastatin 20 Mg Tablet PO 20 mg QHS DOYLE Administration Sacubitril/Valsartan 1 tab 03/27/25 09:00 03/28/25 09:04 Sacubitril/Valsartan 24-26 Mg Tablet PO Not Given Q12HR DOYLE Venlafaxine HCl 150 mg 03/27/25 09:00 03/28/25 09:01 Venlafaxine Hcl Xr 75 Mg Cap.Er.24h PO 150 mg DAILY DOYLE Administration Radiology Results: ITS Impressions Abdomen/Pelvis CT 03/26/25 13:24 IMPRESSION: 1. . No acute intra-abdominal/pelvic process. 2. Diverticulosis. Labs Labs: Laboratory Results - last 24 hr 03/27/25 03/27/25 03/27/25 12:32 16:20 19:33 WBC RBC Hgb 13.0 Hct 40.4 MCV MCH MCHC RDW Plt Count MPV Immature Gran % (Auto) Neut % (Auto) Lymph % (Auto) [place] % (Auto) Eos % (Auto) Baso % (Auto) Lymph # (Auto) [place] # (Auto) Eos # (Auto) Baso # (Auto) Abs Immat Gran (auto) Absolute Neuts (auto) Absolute Nucleated RBC Nucleated RBC % Sodium Potassium Chloride Carbon Dioxide Anion Gap BUN Creatinine Estim Creat Clear Calc Estimated GFR Glucose POC Capillary Glucose 173 H 352 H Calcium Total Bilirubin AST ALT Alkaline Phosphatase Total Protein Albumin 03/27/25 03/28/25 03/28/25 20:50 05:36 07:38 WBC 8.6 RBC 4.18 L Hgb 12.9 Hct 40.9 MCV 97.8 MCH 30.9 MCHC 31.5 L RDW 13.5 Plt Count 224 MPV 10.0 Immature Gran % (Auto) 0.5 Neut % (Auto) 61.8 Lymph % (Auto) 22.0 [place] % (Auto) 10.9 H Eos % (Auto) 4.3 Baso % (Auto) 0.5 Lymph # (Auto) 1.90 [place] # (Auto) 0.9 H Eos # (Auto) 0.4 H Baso # (Auto) 0.0 Abs Immat Gran (auto) 0.04 H Absolute Neuts (auto) 5.3 Absolute Nucleated RBC 0.000 Nucleated RBC % 0.0 Sodium 139 Potassium 3.5 Chloride 110 H Carbon Dioxide 22 Anion Gap 7 BUN 13 Creatinine 0.88 Estim Creat Clear Calc 46 Estimated GFR > 60 Glucose 165 H POC Capillary Glucose 234 H 192 H Calcium 8.6 Total Bilirubin 0.6 AST 28 ALT 13 Alkaline Phosphatase 75 Total Protein 6.1 L Albumin 3.3 L 03/28/25 03/28/25 03/28/25 08:59 11:34 12:15 WBC RBC Hgb 13.0 13.2 Hct 40.5 41.5 MCV MCH MCHC RDW Plt Count MPV Immature Gran % (Auto) Neut % (Auto) Lymph % (Auto) [place] % (Auto) Eos % (Auto) Baso % (Auto) Lymph # (Auto) [place] # (Auto) Eos # (Auto) Baso # (Auto) Abs Immat Gran (auto) Absolute Neuts (auto) Absolute Nucleated RBC Nucleated RBC % Sodium Potassium Chloride Carbon Dioxide Anion Gap BUN Creatinine Estim Creat Clear Calc Estimated GFR Glucose POC Capillary Glucose 239 H Calcium Total Bilirubin AST ALT Alkaline Phosphatase Total Protein Albumin
[2025-03-28] MEDS: BISACODYL 5 MG TABLET EC 20 MG PO (17:13)
[2025-03-28] MEDS: SODIUM CHLORIDE 0.9% IV 1,000 ML 75 ML IV CONT (17:13)
[2025-03-28 19:29] LABS: Hematocrit 39.0 % (37.0-47.0); Hemoglobin 12.5 g/dL (12.0-15.0)
[2025-03-28] MEDS: ROSUVASTATIN 20 MG TABLET PO (21:19)
[2025-03-28] MEDS: SACUBITRIL/VALSARTAN 24-26 MG TABLET 1 TAB PO (21:19)
[2025-03-29] VITALS (8 sets, daily range): BP systolic 83–131; BP diastolic 55–77; PULSE 101–116; RESP 14–18; TEMP 36.4–36.6; O2SAT 92–99
--- NOTE | 2025-03-29 | ECHO_ITS ---
Patient Info Name: Ailyn Neff Age: 79 years : 1945 Gender: Female Ht: 64 in Wt: 175 lbs BSA: 1.92 m2 HR: 116 bpm BP: 131 / 64 mmHg Heart Rhythm: Indeterminant Technical Quality: Good Exam Date: 03/29/2025 2:35 PM Patient Status: I Admit Date: 03/28/2025 Exam Type: CA echo dop color flow w con Complete two-dimensional, color flow and Doppler transthoracic echocardiogram is performed with contrast to opacify the left ventricle and to improve the deliniation of the left ventricle endocardial borders. Staff Referring Physician: Radha Ruiz Label Stamper: Carissa Goddard Attending Provider: Bjorn Quinn MD Contrast/Agitated Saline Contrast/Ag. Saline: Definity Amount: 2.00 ml Existing IV Access: Yes Summary 1. Definity contrast utilized to improve visualization. 2. Moderate left ventricular enlargement with severe global systolic dysfunction ejection fraction 20-25%. 3. Left atrial enlargement. 4. Moderate mitral regurgitation. 5. Mild tricuspid insufficiency velocity estimates PA systolic pressure 58. 6. Compared to echocardiogram done in this laboratory 2 months ago, nothing has changed. Left Ventricle Left ventricular chamber dimension is moderately enlarged. Left ventricular systolic function is severely reduced, estimated at 20-25. The left ventricular diastolic function is indeterminate. Right Ventricle Right ventricular chamber dimension is normal. Left Atria Left atrial chamber dimension is moderately enlarged. Right Atria Right atrial chamber dimension is mildly enlarged. Aortic Valve The aortic valve is normal. Pulmonic Valve The pulmonic valve is normal. Mitral Valve The mitral valve has normal leaflets. There is moderate mitral valve regurgitation. Tricuspid Valve The tricuspid valve leaflets are normal. There is mild tricuspid valve regurgitation. Moderate pulmonary hypertension, estimated pulmonary arterial systolic pressure is 59 mmHg. Pericardium/Pleural The pericardium appears normal. Aorta The aortic root size at the sinus of Valsalva is normal. Left Ventricular Outflow Tract Name Value Normal LVOT 2D LVOT Diameter 2.1 cm LVOT Doppler LVOT Peak Velocity 68 cm/s LVOT Peak Gradient 2 mmHg LVOT Mean Gradient 1 mmHg LVOT VTI 13 cm LVOT VTI/AV VTI Ratio 0.7 LVOT Stroke Volume 45 ml LVOT CO 4.3 l/min LVOT CI 2.2 l/min/m2 Pulmonic Valve Name Value Normal PV Doppler PV Peak Velocity 90 cm/s PV Peak Gradient 3 mmHg Mitral Valve Name Value Normal MV Regurgitation Doppler MR Peak Gradient 111 mmHg MV Diastolic Function MV E Peak Velocity 127 cm/s MV A Peak Velocity 141 cm/s MV E/A 0.9 MV Decel Time (PW) 74 ms MV Annular TDI MV E/e' (Septal) 17.3 MV E/e' (Lateral) 8.8 MV E/e' (Average) 13.0 Tricuspid Valve Name Value Normal TV Regurgitation Doppler TR Peak Velocity 349 cm/s TR Peak Gradient 49 mmHg Estimated PAP/RSVP RA Pressure 10 mmHg <=5 PA Systolic Pressure 59 mmHg <36 RV Systolic Pressure 59 mmHg <36 TV Annular TDI TV Lateral Gladis s' Velocity 10.9 cm/s >=9.5 Aortic Valve Name Value Normal AV Doppler AV Peak Velocity 120 cm/s AV Peak Gradient 6 mmHg AV Mean Gradient 3 mmHg AV VTI 18 cm AV Area (Cont Eq VTI) 2.5 cm2 >=3.0 AV Area (Cont Eq Misael) 2.0 cm2 AV DI (Misael) 0.57 AV Regurgitation 2D LVOT Area 3.5 cm2 Ventricles Name Value Normal LV Dimensions 2D/MM IVS Diastolic Thickness (2D) 1.0 cm 0.6-1.0 LVID Diastole (2D) 4.4 cm 3.8-5.2 LVIW Diastolic Thickness (2D) 0.9 cm 0.6-0.9 LVID Systole (2D) 3.5 cm 2.2-3.5 LVOT Diameter 2.1 cm LV Mass (2D Cubed) 139.16 g 67.00-162.00 LV Mass Index (2D Cubed) 73 g/m2 43-95 Relative Wall Thickness (2D) 0.43 <=0.42 LV Fractional Shortening/Ejection Fraction 2D/MM LV Fractional Shortening (2D) 20 % 27-45 LV EF (2D Teichholz) 42 % LV Diastolic Volume (4C MOD) 119 ml LV EF (4C MOD) 23 % LV Diastolic Volume (2C MOD) 91 ml LV EF (2C MOD) 29 % LV Diastolic Volume (BP MOD) 108 ml 46-106 LV Diastolic Volume Index (BP MOD) 56 ml/m2 29-61 LV Systolic Volume (BP MOD) 86 ml 14-42 LV Systolic Volume Index (BP MOD) 45 ml/m2 8-24 LV EF (BP MOD) 20 % 54-74 LV Diastolic Length (4C) 9.2 cm LV Systolic Length (4C) 8.2 cm LV Stroke Volume (4C MOD) 27 ml Atria Name Value Normal LA Dimensions LA Volume (4C A-L) 81 ml LA Volume (BP A-L) 58 ml RA Dimensions RA Systolic Major [place] Length (4C) 5.1 cm 2.2-2.8 RA Area (4C) 16.5 cm2 <=18.0 Report Signatures
[2025-03-29] MEDS: MAGNESIUM CITRATE 300 ML BTL PO (00:58)
[2025-03-29 02:28] LABS: Hematocrit 39.6 % (37.0-47.0); Hemoglobin 12.8 g/dL (12.0-15.0)
[2025-03-29] MEDS: ONDANSETRON INJ 4 MG/2 ML VIAL IV PUSH (03:23)
[2025-03-29] MEDS: SODIUM CHLORIDE 0.9% IV 1,000 ML 75 ML IV CONT (07:03)
--- NOTE | 2025-03-29 08:55 | P.PNIM_ITS ---
Progress Note: A&P Assessment and Plan (1) Rectal bleed: Code(s): K62.5 - Hemorrhage of anus and rectum Status: Acute Assessment and Plan: New onset lower GI bleed. Patient recently started on Eliquis and Plavix post ID in January. No obvious etiology on abdominal pelvic CT. Rectal exam in ED positive for dark red blood. -GI consult; scope on Saturday -serial H&H. Stable Transfuse for hemoglobin less than 7 or symptomatic - diet NPO -continue to hold Eliquis Okay for Plavix for GI (2) Hypotension: Code(s): I95.9 - Hypotension, unspecified Status: Acute Assessment and Plan: Hemoglobin stable DC IV fluids due CHF Hold blood pressure medications (3) Bacteria in urine: Code(s): R82.71 - Bacteriuria Status: Acute Assessment and Plan: UA with 3+ glucose, 1+ leukocyte Estrace, WBC 51-100, 1+ bacteria. Patient has a history of frequent UTIs. Denies UTI symptoms, no leukocytosis, no fever. Culture pending Due to hypotension without acute blood loss he will start antibiotics IV Rocephin (4) Diabetes: Qualifiers: Diabetes mellitus complication status: without complication Diabetes mellitus assurance manager insurance insulin use: with half-way use Diabetes mellitus type: type 2 Qualified Code(s): E11.9 - Type 2 diabetes mellitus without complications; Z79.4 - halfway (current) use of insulin Code(s): E11.9 - Type 2 diabetes mellitus without complications Status: Chronic Assessment and Plan: - hypoglycemia protocol - POC blood glucose ACHS - home medication: Jardiance, Lantus - correct regimen ordered: Low-dose corrective scale (5) Ischemic cardiomyopathy: Code(s): I25.5 - Ischemic cardiomyopathy Status: Chronic Assessment and Plan: 01/28 ID with stent to the LAD. Echo on 01/20/2025: EF 25-30. 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 -patient refused LifeVest at discharge. -continue Entresto, metoprolol, Jardiance -monitor BP as patient tends to run low Echocardiogram pending (6) Anxiety and depression: Code(s): F41.9 - Anxiety disorder, unspecified; F32.A - Depression, unspecified Status: Chronic Assessment and Plan: Continue Effexor daily Plan Diet: NPO GI prophylaxis: NA DVT prophylaxis: SCDs lines/drains: PIV Fluids: SLIV Code status: Bolt Header Spent With Patient Time with patient: Greater than 35 minutes Subjective Date/time seen: 03/29/25 08:55 Interval history: 79-year-old female with a past medical history of anxiety, TIA, HTN, headaches, GERD, DM2, recent ID presents to the ED on 03/26 with complaints of dark stool found to have rectal bleeding with GI consulted. GI with like a cardiac workup before patient has a scope echocardiogram on 01/20/2025 showed an EF of 25-30%. Cardiology consulted Patient has no complaints at bedside Review of Systems Review of Systems: 12 systems were reviewed and are negativ e except for as per HPI. Exam Narrative: General: Ill-appearing HEENT: normocephalic, atraumatic. Mucous membranes moist. EOMI, PERRLA, bilateral sclera anicteric, no conjunctival injection. Neck supple without JVD, lymphadenopathy, or bruit. Respiratory: clear bilaterally. No rales/rhonic/wheezes. Cardiovascular: Regular rate and rhythm, normal S1-S2. No murmurs, rubs, or clicks. PMI is nondisplaced, capillary refill less than 3 second. Abdomen: Soft, round, no pulsatile masses, nondistended and nontender. No rebound, no guarding. Bowel sounds present to all four quadrants. No high pitch or tinkling sounds, resonant to percussion. Extremities: No cyanosis, clubbing, or edema present. Pulses are palpable 2/2. Active ROM to all four extremities. Neuro: Alert and orientated x 4. PERRLA. Cranial nerves 2-12 intact without focal deficit. Skin: Warm, dry, and intact, without rash, erythema, or lesion. Psych: pleasant, cooperative, normal speech, normal affect, no hallucinations, no dysarthia Objective Data Vital Signs Vital Signs: Vital Signs - 24 hr 03/28/25 09:00 03/28/25 09:01 03/28/25 11:49 Temperature Pulse Rate 100 112 H Respiratory Rate 20 Blood Pressure 122/85 Pulse Oximetry 97 Oxygen Delivery Room Air 03/28/25 14:00 03/28/25 20:00 03/28/25 20:00 Temperature 98.7 F 98.2 F Pulse Rate 92 96 96 Respiratory Rate 16 18 18 Blood Pressure 105/60 103/61 Pulse Oximetry 98 92 92 Oxygen Delivery Room Air 03/28/25 20:57 03/29/25 05:18 03/29/25 08:00 Temperature 98.2 F 97.6 F 97.7 F Pulse Rate 96 108 H 103 H Respiratory Rate 18 18 18 Blood Pressure 103/61 109/58 L 116/59 L Pulse Oximetry 92 93 94 Oxygen Delivery 03/29/25 08:51 Temperature 97.7 F Pulse Rate 107 H Respiratory Rate 18 Blood Pressure 83/64 L Pulse Oximetry 92 Oxygen Delivery Intake/Output Intake/Output: Intake & Output 03/26/25 03/27/25 03/28/25 03/29/25 23:59 23:59 23:59 23:59 Intake Total 344 3668 1370 1000 Balance 344 3668 1370 1000 Meds/Results Medications: Active Medications Generic Name Dose Route Start Last Admin Trade Name Freq PRN Reason Stop Dose Admin Acetaminophen 650 mg 03/26/25 14:10 Acetaminophen 325 Mg Tablet PO Q4H PRN Mild Pain (1-3) or Fever Acetaminophen 500 mg 03/26/25 17:28 Acetaminophen 500 Mg Tablet PO Q6H PRN fever or pain Clopidogrel Bisulfate 75 mg 03/28/25 09:00 03/28/25 11:47 Clopidogrel Bisulfate 75 Mg Tablet PO Not Given QAM DOYLE Dextrose 12.5 gm 03/26/25 17:29 Dextrose 50% 25 Gm/50 Ml Syringe IV PUSH PRN PRN Hypoglycemia Protocol Empagliflozin 10 mg 03/27/25 09:00 03/28/25 09:01 Empagliflozin 10 Mg Tablet PO 10 mg DAILY DOYLE Administration Glucagon 1 mg 03/26/25 17:29 Glucagon For Inj 1 Mg Vial IM PRN PRN Hypoglycemia Protocol Glucose 15 gm 03/26/25 17:29 Glucose Oral Gel 15 Gm Of Glucse In 37.5 Gm Tube PO PRN PRN Hypoglycemia Protocol Dextrose 1,000 mls @ 100 mls/hr 03/26/25 17:29 Dextrose 5% 1,000 Ml IVPB PRN PRN Hypoglycemia Protocol Sodium Chloride 1,000 mls @ 100 mls/hr 03/28/25 12:30 03/29/25 07:03 Normal Saline Iv IV CONT 75 mls/hr .Q10H DOYLE Administration Insulin Aspart 2 - 5 units 03/26/25 17:30 03/29/25 08:05 Insulin Aspart (*Bkc) 100 Units/Ml SUB-Q Not Given TIDWM [facility] Protocol Insulin Aspart 1 - 2 units 03/27/25 21:00 03/28/25 21:19 Insulin Aspart (*Bkc) 100 Units/Ml SUB-Q 2 units HS DOYLE Administration Protocol Magnesium Oxide 400 mg 03/27/25 09:00 03/28/25 09:01 Magnesium Oxide 400 Mg Tablet PO 400 mg DAILY DOYLE Administration Metoprolol Succinate 25 mg 03/27/25 09:00 03/28/25 09:01 Metoprolol Succinate Ext Rel 25 Mg Tabcr PO 25 mg QAM DOYLE Administration Ondansetron HCl 4 mg 03/29/25 03:12 03/29/25 03:23 Ondansetron Inj 4 Mg/2 Ml Vial IV PUSH 4 mg Q4H PRN Administration Nausea And Vomiting Rosuvastatin Calcium 20 mg 03/26/25 21:00 03/28/25 21:19 Rosuvastatin 20 Mg Tablet PO 20 mg QHS DOYLE Administration Sacubitril/Valsartan 1 tab 03/27/25 09:00 03/28/25 21:19 Sacubitril/Valsartan 24-26 Mg Tablet PO 1 tab Q12HR DOYLE Administration Venlafaxine HCl 150 mg 03/27/25 09:00 03/28/25 09:01 Venlafaxine Hcl Xr 75 Mg Cap.Er.24h PO 150 mg DAILY DOYLE Administration Radiology Results: ITS Impressions Abdomen/Pelvis CT 03/26/25 13:24 IMPRESSION: 1. . No acute intra-abdominal/pelvic process. 2. Diverticulosis. Labs Labs: Laboratory Results - last 24 hr 03/26/25 03/28/25 03/28/25 12:24 08:59 11:34 Hgb 13.0 Hct 40.5 POC Capillary Glucose 239 H Blood Type B Positive Antibody Screen Negative 03/28/25 03/28/25 03/28/25 12:15 16:23 19:20 Hgb 13.2 12.5 Hct 41.5 39.0 POC Capillary Glucose 174 H Blood Type Antibody Screen 03/28/25 03/29/25 03/29/25 20:03 02:20 07:25 Hgb 12.8 Hct 39.6 POC Capillary Glucose 343 H 172 H Blood Type Antibody Screen Quality VTE Prophylaxis VTE prophylaxis: mechanical ordered
[2025-03-29] MEDS: SODIUM CHLORIDE 0.9% IV 1,000 ML 999 ML IV CONT (09:20)
[2025-03-29] MEDS: cefTRIAXone 1 GM in SODIUM CHLORIDE 0.9% IV 50 ML 100 ML IVPB (10:32)
[2025-03-29] MEDS: METOPROLOL SUCCINATE EXT REL 25 MG TABCR PO (11:53)
[2025-03-29] MEDS: VENLAFAXINE HCL XR 75 MG CAP.ER.24H 150 MG PO (15:37)
[2025-03-29] MEDS: MAGNESIUM OXIDE 400 MG TABLET PO (15:37)
[2025-03-29] MEDS: EMPAGLIFLOZIN 10 MG TABLET PO (15:37)
[2025-03-29] MEDS: PERFLUTREN LIPID MICROSPHERES 1.5 ML VIAL DILUTED TO 10 ML TOTAL VOLUME IV PUSH (15:58)
--- NOTE | 2025-03-29 15:58 | P.PNGI_ITS ---
Progress Note: A&P Assessment and Plan (1) Rectal bleed: Code(s): K62.5 - Hemorrhage of anus and rectum Status: Acute Assessment and Plan: I still think this is most likely diverticular source but given stable h/h another potential explanation could be perianal disease hemoglobin remains stable, patient still would like to have colonoscopy will await on finance associate clearance it is ok to continue using plavix since had recent stents but holding eliquis for now until colonoscopy findings colonoscopy tomorrow if ok with other physicians. 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 Status: Acute Assessment and Plan: continue plavix holding eliquis (4) Ischemic cardiomyopathy: Code(s): I25.5 - Ischemic cardiomyopathy Status: Chronic Assessment and Plan: awaiting finance associate evaluation Subjective Date/time seen: 03/29/25 15:58 Interval history: she completed bowel prep and still noted some blood in stool anesthesiologist did not feel comfortable to give sedation before finance associate evaluation given cardiac stent and low EF patient denies any sob or chest pain she is frustrated about cancellation and would like to know source of bleeding Review of Systems Review of Systems: All systems reviewed & are unremarkable except as noted in HPI and below Exam Const: General: comfortable and no acute distress HENMT: Face/Nose/Sinus: Normal nares present Eyes: General: appearance normal, both eyes and all related structures Neck: Neck: supple Resp: Auscultation: clear to auscultation bilaterally Cardio: Rate: regular rate Rhythm: regular rhythm GI: Inspection: non-distended GI Palp: Yes Soft to palpation and No Tenderness to palpation present (GI) Auscultation: normal bowel sounds Skin: General skin exam: normal color Neuro: Speech: normal speech Extrem: General: normal to inspection Psych: Mental Status: mental status grossly normal Objective Data Vital Signs Vital Signs: Vital Signs - 24 hr 03/28/25 20:00 03/28/25 20:00 03/28/25 20:57 Temperature 98.2 F 98.2 F Pulse Rate 96 96 96 Respiratory Rate 18 18 18 Blood Pressure 103/61 103/61 Pulse Oximetry 92 92 92 Oxygen Delivery Room Air 03/29/25 05:18 03/29/25 08:00 03/29/25 08:10 Temperature 97.6 F 97.7 F Pulse Rate 108 H 103 H Respiratory Rate 18 18 Blood Pressure 109/58 L 116/59 L Pulse Oximetry 93 94 Oxygen Delivery Room Air 03/29/25 08:51 03/29/25 11:30 03/29/25 11:53 Temperature 97.7 F Pulse Rate 107 H 116 H 116 H Respiratory Rate 18 Blood Pressure 83/64 L 131/64 Pulse Oximetry 92 94 Oxygen Delivery Intake/Output Intake/Output: Intake & Output 03/26/25 03/27/25 03/28/25 03/29/25 23:59 23:59 23:59 23:59 Intake Total 344 3668 1370 2450.0 Balance 344 3668 1370 2450.0 Meds/Results Medications: Active Medications Generic Name Dose Route Start Last Admin Trade Name Freq PRN Reason Stop Dose Admin Acetaminophen 650 mg 03/26/25 14:10 Acetaminophen 325 Mg Tablet PO Q4H PRN Mild Pain (1-3) or Fever Acetaminophen 500 mg 03/26/25 17:28 Acetaminophen 500 Mg Tablet PO Q6H PRN fever or pain Clopidogrel Bisulfate 75 mg 03/28/25 09:00 03/29/25 15:38 Clopidogrel Bisulfate 75 Mg Tablet PO Not Given QAM DOYLE Dextrose 12.5 gm 03/26/25 17:29 Dextrose 50% 25 Gm/50 Ml Syringe IV PUSH PRN PRN Hypoglycemia Protocol Empagliflozin 10 mg 03/27/25 09:00 03/29/25 15:37 Empagliflozin 10 Mg Tablet PO 10 mg DAILY DOYLE Administration Glucagon 1 mg 03/26/25 17:29 Glucagon For Inj 1 Mg Vial IM PRN PRN Hypoglycemia Protocol Glucose 15 gm 03/26/25 17:29 Glucose Oral Gel 15 Gm Of Glucse In 37.5 Gm Tube PO PRN PRN Hypoglycemia Protocol Dextrose 1,000 mls @ 100 mls/hr 03/26/25 17:29 Dextrose 5% 1,000 Ml IVPB PRN PRN Hypoglycemia Protocol Ceftriaxone Sodium 1 gm/ 50 mls @ 100 mls/hr 03/29/25 09:00 03/29/25 11:02 Sodium Chloride IVPB Infused Q24H DOYLE Infusion Lactated Ringer's 1,000 mls @ 150 mls/hr 03/29/25 14:40 Lr - Lactated Ringers Iv IV CONT .Q6H40M [facility] Insulin Aspart 2 - 5 units 03/26/25 17:30 03/29/25 12:00 Insulin Aspart (*Bkc) 100 Units/Ml SUB-Q Not Given TIDWM [facility] Protocol Insulin Aspart 1 - 2 units 03/27/25 21:00 03/28/25 21:19 Insulin Aspart (*Bkc) 100 Units/Ml SUB-Q 2 units HS DOYLE Administration Protocol Magnesium Oxide 400 mg 03/27/25 09:00 03/29/25 15:37 Magnesium Oxide 400 Mg Tablet PO 400 mg DAILY DOYLE Administration Metoprolol Succinate 25 mg 03/27/25 09:00 03/29/25 11:53 Metoprolol Succinate Ext Rel 25 Mg Tabcr PO 25 mg QAM [facility] Administration Ondansetron HCl 4 mg 03/29/25 03:12 03/29/25 03:23 Ondansetron Inj 4 Mg/2 Ml Vial IV PUSH 4 mg Q4H PRN Administration Nausea And Vomiting Perflutren Lipid Microsphere 0 ml 03/29/25 13:34 Perflutren Lipid Microspheres 1.5 Ml Vial Diluted To 10 Ml Total Volume IV PUSH 04/01/25 13:35 ONCE PRN adequate visualization Protocol Rosuvastatin Calcium 20 mg 03/26/25 21:00 03/28/25 21:19 Rosuvastatin 20 Mg Tablet PO 20 mg QHS DOYLE Administration Sacubitril/Valsartan 1 tab 03/27/25 09:00 03/28/25 21:19 Sacubitril/Valsartan 24-26 Mg Tablet PO 1 tab On Hold: 03/29/25 08:54 Q12HR DOYLE Administration Venlafaxine HCl 150 mg 03/27/25 09:00 03/29/25 15:37 Venlafaxine Hcl Xr 75 Mg Cap.Er.24h PO 150 mg DAILY DOYLE Administration Radiology Results: ITS Impressions Abdomen/Pelvis CT 03/26/25 13:24 IMPRESSION: 1. . No acute intra-abdominal/pelvic process. 2. Diverticulosis. Chest X-Ray 03/29/25 13:47 Impression: No acute cardiopulmonary abnormality. Labs Labs: Laboratory Results - last 24 hr 03/28/25 03/28/25 03/28/25 16:23 19:20 20:03 Hgb 12.5 Hct 39.0 POC Capillary Glucose 174 H 343 H 03/29/25 03/29/25 03/29/25 02:20 07:25 11:40 Hgb 12.8 Hct 39.6 POC Capillary Glucose 172 H 191 H
--- NOTE | 2025-03-29 15:59 | IVDEFINITY ---
Prior to administration of IV Definity the patient was educated on the risks and benefits of the imaging enhancing agent including potential adverse side effects. The patient verbalized understanding. Allergies were verified. No exclusion criteria were identified and at least one of the following inclusion criteria were met: 1) physician request, 2) patient technically difficult to image (per the [place] [employer]ocardi[employer] guidelines of two or more segments not discernable within the apical view), or 3) questionable left ventricular function. ?
--- NOTE | 2025-03-29 16:51 | PM.CNCAR ---
Assessment and Plan Assessment and plan (1) Ischemic cardiomyopathy: Code(s): I25.5 - Ischemic cardiomyopathy Status: Chronic (2) HTN (hypertension): Code(s): I10 - Essential (primary) hypertension Status: Acute (3) Hypotension: Code(s): I95.9 - Hypotension, unspecified Status: Acute (4) Paroxysmal atrial fibrillation: Code(s): I48.0 - Paroxysmal atrial fibrillation Status: Acute (5) Hyperlipidemia LDL goal <70: Code(s): E78.5 - Hyperlipidemia, unspecified Status: Acute (6) ST elevation (STEMI) myocardial infarction: Code(s): I21.3 - ST elevation (STEMI) myocardial infarction of unspecified site Status: Acute (7) 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: Code(s): Z79.01 - correction (current) use of anticoagulants Status: Acute (8) Rectal bleed: Code(s): K62.5 - Hemorrhage of anus and rectum Status: Acute Plan Assessment: Acute GI bleed Ischemic cardiomyopathy with LVEF of 30% Recent STEMI status post PCI to LAD in 01/2025 on Eliquis and Plavix Hypertension, now hypotension Diabetes mellitus History of TIA Paroxysmal atrial fibrillation on chronic anticoagulation with Eliquis-she is currently in sinus tachycardia Plan: Continue guideline directed medical therapy for ischemic cardiomyopathy with beta-christa, empagliflozin, Entresto Continue statin Hold Eliquis due to acute GI bleed Continue Plavix given recent LAD stent in 01/2025 No chest pain, not in acute heart failure, no acute arrhythmia, no renal failure. She has a history of TIA and insulin-dependent diabetes mellitus. Her RCRI score is 4 (h/o IHD, CHF, TIA, IDDM). She remains at 10% risk of major cardiovascular events from planned procedure. Obtain EKG and BNP. Place on telemetry. Will review TTE which was just completed but most recent TTE done in 03/2025 showed LVEF of 33%. Recommend optimizing blood pressure and volume status during procedure. Please call Cardiology for any immediate questions during before or after procedure History of Present Illness History of Present Illness Consult date/time: 03/29/25 16:51 Reason For Visit: Rectal Bleed Narrative: 79-year-old female with a past medical history of STEMI status post PCI to LAD on 01/14/2025 on Plavix and Eliquis, ischemic cardiomyopathy at the time of STEMI with LVEF 25-30%, LVEF remains low at 33% on repeat TTE in 03/2025, paroxysmal atrial fibrillation on Eliquis currently in sinus rhythm, TIA 10 years ago with no recurrence, HTN, insulin-dependent diabetes mellitus, GERD was admitted with chief complaints of dark stool associated with mild abdominal discomfort. Patient states she noticed dark blood in her stool on Saturday which prompted her to come to the ER. Rectal exam in ED was positive for dark red blood. Abdominal and pelvic CT showed no acute intra-abdominal/pelvic process. Diverticulosis noted. GI was consulted and further workup with scope was recommended. Cardiology is consulted for preoperative risk stratification. Patient denies any chest pain, shortness of breath, recent weight gain, leg swelling, diaphoresis, orthopnea, PND, palpitations, dizziness, lightheadedness, presyncope, or syncope. She is compliant with her medications. Eliquis was stopped due to acute GI bleed. Workup: Hemoglobin: 14.6 Creatinine: 1 Review of Systems Review of Systems: Complete review of systems was performed and pertinent positives are reported in HPI. [facility] Past Medical History Medical History (Updated 03/27/25 @ 14:50 by Chris Xavier MD) Hx of [facility] use of blood thinners Colon, diverticulosis Haemophilus infection Hypotension Anxiety and depression TIA (transient ischemic attack) 2012 HTN (hypertension) Hypomagnesemia Screening for colon cancer Mini stroke (~2012) Chronic headaches Acid reflux Diabetes Arthritis Surgical History Surgical History History of hand surgery trigger finger -right 3rd finger x3 History of bladder suspension procedure History of arthroscopy of left knee H/O: hysterectomy (~1979) Family History Family History Father Hypertension Mother Breast cancer Social History Social History Social History: Patient declined SDOH 02/12/24 Smoking status: Former smoker Additional smoking assessment comments: quit smoking about 40 years ago Alcohol intake: current Drinks per week: 1 Alcohol use details: OCC. Substance use: never Substance use type: does not use Do You Feel Safe in your Home?: Yes Lack of Transportation: No Lack of Food: Never True Current Housing: I Have Housing Concerned About Future Housing: No Difficulty Paying Gas/Electric Bills: No Difficulty Paying for Meds: No Currently Unemployed: No Education: High School Diploma/GED Difficulty w/ Childcare or Family Care: No Living arrangements: alone Occupation/Education: retired Gender identity (if verbalized by the patient): Female Spiritual care concerns: No Agree to blood products: Yes Meds Home Medications and Allergies Home Medications ?Medication ?Instructions ?Recorded ?Confirmed ?Type acetaminophen 500 mg tablet 500 mg PO Q6H PRN fever or pain 07/03/24 03/26/25 History pen needle, diabetic 32 gauge x #400 ea 07/22/24 03/26/25 Rx (Chante Pen Needle) 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,cement sack breaker,cont #1 ea 10/26/24 03/26/25 Rx (FreeStyle James 3 [place]) linagliptin 5 mg tablet (Tradjenta) 5 mg PO QAM #90 tabs 01/12/25 03/26/25 Rx empagliflozin 10 mg tablet 10 mg PO DAILY #30 tabs 02/01/25 03/26/25 Rx (Jardiance) rosuvastatin 20 mg tablet 20 mg PO QHS #30 tabs 02/01/25 03/26/25 Rx magnesium oxide 400 mg (241.3 mg 400 mg PO DAILY #90 tabs 02/02/25 03/26/25 Rx magnesium) tablet glucagon 1 mg/0.2 mL subcutaneous 1 mg (0.2 mL) subcut ONCE PRN 02/11/25 03/26/25 Rx auto-injector (Gvoke HypoPen hypoglycemia #0.4 mL 2-Pack) glucose 4 gram chewable tablet 16 g (4 x 4 gram) PO Q15M PRN 02/11/25 03/26/25 Rx (Dex4 Glucose) hypoglycemia #60 tabs metoprolol succinate 25 mg 25 mg PO QAM #30 tabs 02/13/25 03/26/25 Rx tablet,extended release 24 hr (Toprol XL) insulin glargine 100 unit/mL (3 16 unit subcut QPM 02/15/25 03/26/25 History mL) subcutaneous pen (Basaglar KwikPen U-100 Insulin) venlafaxine 150 mg 150 mg PO DAILY #90 caps 02/15/25 03/26/25 Rx capsule,extended release 24 hr clopidogrel 75 mg tablet 75 mg PO DAILY #30 tabs 03/04/25 03/26/25 Rx apixaban 5 mg tablet (Eliquis) 5 mg PO BID #180 tabs 03/23/25 03/26/25 Rx 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 sensor (FreeStyle #2 ea 03/25/25 03/26/25 Rx James 3 Plus Sensor device) sacubitril 24 mg-valsartan 26 mg 1 tablet PO BID 03/26/25 03/26/25 History tablet (Entresto) Allergies Allergy/AdvReac Type Severity Reaction Status Date / Time Penicillins Allergy Mild Swelling Verified 03/26/25 16:18 pentazocine Allergy Mild Unknown Verified 03/26/25 16:18 albuterol Allergy syncope Verified 03/26/25 16:18 aspirin Allergy Swelling Verified 03/26/25 16:18 codeine Allergy Numbness Verified 03/26/25 16:18 Sulfa (Sulfonamide Allergy Unknown Verified 03/26/25 16:18 Antibiotics) ibuprofen AdvReac GI upset Verified 03/26/25 16:18 Vital Signs Vital Signs - 24 hr 03/28/25 20:00 03/28/25 20:00 03/28/25 20:57 Temperature 36.8 C 36.8 C Pulse Rate 96 96 96 Respiratory Rate 18 18 18 Blood Pressure 103/61 103/61 Pulse Oximetry 92 92 92 Oxygen Delivery Room Air 03/29/25 05:18 03/29/25 08:00 03/29/25 08:10 Temperature 36.4 C 36.5 C Pulse Rate 108 H 103 H Respiratory Rate 18 18 Blood Pressure 109/58 L 116/59 L Pulse Oximetry 93 94 Oxygen Delivery Room Air 03/29/25 08:51 03/29/25 11:30 03/29/25 11:53 Temperature 36.5 C Pulse Rate 107 H 116 H 116 H Respiratory Rate 18 Blood Pressure 83/64 L 131/64 Pulse Oximetry 92 94 Oxygen Delivery Exam Narrative: General: Alert oriented x3, no acute distress Neck: Supple, no JVD Chest: Bilaterally clear to auscultation, no rales or rhonchi Cardiac: S1, S2 +, regular rate, regular rhythm, no murmurs or rubs Extremities: No pedal edema, no skin rash Neurologic: Alert and oriented x3, no focal neurological deficits Results Labs and Meds 03/29/25 02:20 03/28/25 05:36 Lab results: CBC 03/28/25 03/29/25 Range/Units 19:20 02:20 Hgb 12.5 12.8 (12.0-15.0) g/dL Hct 39.0 39.6 (37.0-47.0) % Intake and Output 03/29/25 03/29/25 03/29/25 07:59 15:59 23:59 Intake Total 1000 1450.0 Balance 1000 1450.0 Intake: IV 1000 1450.0 Sodium Chloride 0.9% IV 1,000 1000 1400.0 ml @ 100 mls/hr IV CONT .Q10H DOYLE Rx#:[id number] cefTRIAXone 1 gm In Sodium 50 Chloride 0.9% IV 50 ml @ 100 mls/hr IVPB Q24H DOYLE Rx#: [id number] Oral 0 Other: # Unmeasured Voids 5 1 # Urine Diapers 1 Number of Bowel Movements Today 5 7
--- NOTE | 2025-03-29 17:15 | ECG_ITS ---
Test Date: 2025-03-29 21:24:39 Measurements Intervals [place] Rate: 107 P: 42 DE: 197 QRS: 3 QRSD: 95 T: 51 QT: 356 QTc: 476 Interpretive Statements SINUS TACHYCARDIA LOW QRS VOLTAGE IN EXTREMITY LEADS POSSIBLE ANTERIOR MYOCARDIAL INFARCTION , OF INDETERMINATE AGE Electronically Signed On 03-30-2025 05:54:52 TRACK SURFACING MACHINE OPERATOR by Apollo Kumar D.O
[2025-03-29 18:53] LABS: NT Pro B Type Natriuretic Pept 2090 pg/mL (19.9-100)
[2025-03-29] MEDS: ROSUVASTATIN 20 MG TABLET PO (20:30)
[2025-03-29] MEDS: INSULIN ASPART (*BKC) 100 UNITS/ML SUB-Q (20:36)
[2025-03-30] VITALS (15 sets, daily range): BP systolic 101–134; BP diastolic 61–86; PULSE 100–115; RESP 16–22; TEMP 36.6–37.2; O2SAT 93–100
[2025-03-30] MEDS: cefTRIAXone 1 GM in SODIUM CHLORIDE 0.9% IV 50 ML 100 ML IVPB (09:06)
--- NOTE | 2025-03-30 09:36 | PM.PNCARD ---
Progress Note: A&P Assessment and Plan (1) Ischemic cardiomyopathy: Code(s): I25.5 - Ischemic cardiomyopathy Status: Chronic (2) ST elevation (STEMI) myocardial infarction: Code(s): I21.3 - ST elevation (STEMI) myocardial infarction of unspecified site Status: Acute (3) Paroxysmal atrial fibrillation: Code(s): I48.0 - Paroxysmal atrial fibrillation Status: Acute (4) Hyperlipidemia LDL goal <70: Code(s): E78.5 - Hyperlipidemia, unspecified Status: Acute (5) HTN (hypertension): Code(s): I10 - Essential (primary) hypertension Status: Acute Plan Assessment: Acute GI bleed-GI scope planned for this afternoon Ischemic cardiomyopathy with LVEF of 25% Moderate MR STEMI status post PCI to LAD in 01/2025 on Eliquis and Plavix Hypertension Diabetes mellitus History of TIA Paroxysmal atrial fibrillation on chronic anticoagulation with Eliquis-she is currently in sinus rhythm Plan: Continue guideline directed medical therapy for ischemic cardiomyopathy with beta-christa, empagliflozin, Entresto Continue statin Hold Eliquis due to acute GI bleed Continue Plavix given recent LAD stent in 01/2025 No chest pain, not in acute heart failure, no acute arrhythmia, no renal failure. She has a history of TIA and insulin-dependent diabetes mellitus. Her RCRI score is 4 (h/o IHD, CHF, TIA, IDDM). She remains at 10% risk of major cardiovascular events from planned procedure. EKG shows sinus rhythm and old anterior infarct. TTE shows LVEF of 25% and moderate MR. No further cardiac testing recommended prior to planned scope this afternoon. Optimize blood pressure and volume status during procedure. Please call Cardiology for any immediate questions during before or after procedure She will need EP consult after discharge for ICD placement given EF remains less than 35% Subjective Date/time seen: 03/30/25 09:36 Review of Systems Review of Systems: A complete review of systems was performed and pertinent positives are reported in the HPI. Exam Narrative: General: Alert oriented x3, no acute distress Neck: Supple, no JVD Chest: Bilaterally clear to auscultation, no rales or rhonchi Cardiac: S1, S2 +, regular rate, regular rhythm, no murmurs or rubs Extremities: No pedal edema, no skin rash Neurologic: Alert and oriented x3, no focal neurological deficits Objective Data Vital Signs Vital Signs: Vital Signs - 24 hr 03/29/25 11:30 03/29/25 11:53 03/29/25 19:02 Temperature 36.4 C Pulse Rate 116 H 116 H 101 H Respiratory Rate 18 Blood Pressure 131/64 100/55 L Pulse Oximetry 94 94 Oxygen Delivery 03/29/25 20:00 03/29/25 20:00 03/29/25 20:00 Temperature 36.6 C Pulse Rate 101 H 103 H Respiratory Rate 16 Blood Pressure 120/77 Pulse Oximetry 97 Oxygen Delivery Room Air 03/29/25 20:00 03/29/25 22:34 03/30/25 00:00 Temperature Pulse Rate 103 H 108 H 109 H Respiratory Rate 14 18 Blood Pressure 110/67 106/58 L Pulse Oximetry 99 97 Oxygen Delivery 03/30/25 04:00 03/30/25 04:30 Temperature 36.6 C Pulse Rate 115 H 101 H Respiratory Rate 18 Blood Pressure 109/74 Pulse Oximetry 94 Oxygen Delivery Intake/Output Intake/Output: Intake & Output 03/27/25 03/28/25 03/29/25 03/30/25 23:59 23:59 23:59 23:59 Intake Total 3668 1370 3230.0 210 Balance 3668 1370 3230.0 210 Meds/Results Medications: Active Medications Generic Name Dose Route Start Last Admin Trade Name Freq PRN Reason Stop Dose Admin Acetaminophen 650 mg 03/26/25 14:10 Acetaminophen 325 Mg Tablet PO Q4H PRN Mild Pain (1-3) or Fever Acetaminophen 500 mg 03/26/25 17:28 Acetaminophen 500 Mg Tablet PO Q6H PRN fever or pain Clopidogrel Bisulfate 75 mg 03/28/25 09:00 03/29/25 15:38 Clopidogrel Bisulfate 75 Mg Tablet PO Not Given QAM DOYLE Dextrose 12.5 gm 03/26/25 17:29 Dextrose 50% 25 Gm/50 Ml Syringe IV PUSH PRN PRN Hypoglycemia Protocol Empagliflozin 10 mg 03/27/25 09:00 03/29/25 15:37 Empagliflozin 10 Mg Tablet PO 10 mg DAILY DOYLE Administration Glucagon 1 mg 03/26/25 17:29 Glucagon For Inj 1 Mg Vial IM PRN PRN Hypoglycemia Protocol Glucose 15 gm 03/26/25 17:29 Glucose Oral Gel 15 Gm Of Glucse In 37.5 Gm Tube PO PRN PRN Hypoglycemia Protocol Dextrose 1,000 mls @ 100 mls/hr 03/26/25 17:29 Dextrose 5% 1,000 Ml IVPB PRN PRN Hypoglycemia Protocol Ceftriaxone Sodium 1 gm/ 50 mls @ 100 mls/hr 03/29/25 09:00 03/30/25 09:06 Sodium Chloride IVPB 100 mls/hr Q24H DOYLE Administration Lactated Ringer's 1,000 mls @ 150 mls/hr 03/29/25 14:40 03/29/25 19:29 Lr - Lactated Ringers Iv IV CONT Not Given [facility] Insulin Aspart 2 - 5 units 03/26/25 17:30 03/30/25 08:55 Insulin Aspart (*Bkc) 100 Units/Ml SUB-Q Not Given [facility] Protocol Insulin Aspart 1 - 2 units 03/27/25 21:00 03/29/25 20:36 Insulin Aspart (*Bkc) 100 Units/Ml SUB-Q 2 units HS DOYLE Administration Protocol Magnesium Oxide 400 mg 03/27/25 09:00 03/29/25 15:37 Magnesium Oxide 400 Mg Tablet PO 400 mg DAILY DOYLE Administration Metoprolol Succinate 25 mg 03/27/25 09:00 03/29/25 11:53 Metoprolol Succinate Ext Rel 25 Mg Tabcr PO 25 mg QAM DOYLE Administration Ondansetron HCl 4 mg 03/29/25 03:12 03/29/25 03:23 Ondansetron Inj 4 Mg/2 Ml Vial IV PUSH 4 mg Q4H PRN Administration Nausea And Vomiting Rosuvastatin Calcium 20 mg 03/26/25 21:00 03/29/25 20:30 Rosuvastatin 20 Mg Tablet PO 20 mg QHS DOYLE Administration Sacubitril/Valsartan 1 tab 03/27/25 09:00 03/28/25 21:19 Sacubitril/Valsartan 24-26 Mg Tablet PO 1 tab On Hold: 03/29/25 08:54 Q12HR DOYLE Administration Venlafaxine HCl 150 mg 03/27/25 09:00 03/29/25 15:37 Venlafaxine Hcl Xr 75 Mg Cap.Er.24h PO 150 mg DAILY DOYLE Administration Radiology Results: ITS Impressions Abdomen/Pelvis CT 03/26/25 13:24 IMPRESSION: 1. . No acute intra-abdominal/pelvic process. 2. Diverticulosis. Chest X-Ray 03/29/25 13:47 Impression: No acute cardiopulmonary abnormality. Labs Labs: Laboratory Results - last 24 hr 03/29/25 03/29/25 03/29/25 11:40 16:47 18:28 POC Capillary Glucose 191 H 188 H NT-Pro-B Natriuret Pep 2090 H 03/29/25 03/30/25 20:21 07:52 POC Capillary Glucose 326 H 193 H NT-Pro-B Natriuret Pep
[2025-03-30] MEDS: LACTATED RINGERS 1,000 ML 150 ML IV CONT (12:26)
--- NOTE | 2025-03-30 12:35 | WPDANESEPPF ---
Anes - Initial Pre Proc Eval Procedure: Operation Date: 03/30/25 13:30 Proposed Procedures p Diagnostic Colonoscopy - Chris Xavier MD Date/Time: 03/30/25 12:35 Surgeon: Bernardo Quinn MD Pre Op Diagnosis: Rectal Bleed Patient Data Age: 79 Gender: F Height: 1.63 m Weight: 79.8 kg Last Vital Signs Temp 98.6 F 03/30/25 11:00 Pulse 102 H 03/30/25 11:00 Resp 16 03/30/25 11:00 BP 101/68 03/30/25 11:02 Pulse Ox 93 03/30/25 11:00 O2 Del Method Room Air 03/30/25 08:00 Allergies Allergy/AdvReac Type Severity Reaction Status Date / Time Penicillins Allergy Mild Swelling Verified 03/26/25 16:18 pentazocine Allergy Mild Unknown Verified 03/26/25 16:18 albuterol Allergy syncope Verified 03/26/25 16:18 aspirin Allergy Swelling Verified 03/26/25 16:18 codeine Allergy Numbness Verified 03/26/25 16:18 Sulfa (Sulfonamide Allergy Unknown Verified 03/26/25 16:18 Antibiotics) ibuprofen AdvReac GI upset Verified 03/26/25 16:18 Home Medications ?Medication ?Instructions ?Recorded ?Confirmed ?Type acetaminophen 500 mg tablet 500 mg PO Q6H PRN fever or pain 07/03/24 03/26/25 History pen needle, diabetic 32 gauge x #400 ea 07/22/24 03/26/25 Rx 5/32 (Chante Pen Needle) 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,seamer panty hose,cont #1 ea 10/26/24 03/26/25 Rx (FreeStyle James 3 [place]) linagliptin 5 mg tablet (Tradjenta) 5 mg PO QAM #90 tabs 01/12/25 03/26/25 Rx empagliflozin 10 mg tablet 10 mg PO DAILY #30 tabs 02/01/25 03/26/25 Rx (Jardiance) rosuvastatin 20 mg tablet 20 mg PO QHS #30 tabs 02/01/25 03/26/25 Rx magnesium oxide 400 mg (241.3 mg 400 mg PO DAILY #90 tabs 02/02/25 03/26/25 Rx magnesium) tablet glucagon 1 mg/0.2 mL subcutaneous 1 mg (0.2 mL) subcut ONCE PRN 02/11/25 03/26/25 Rx auto-injector (Gvoke HypoPen hypoglycemia #0.4 mL 2-Pack) glucose 4 gram chewable tablet 16 g (4 x 4 gram) PO Q15M PRN 02/11/25 03/26/25 Rx (Dex4 Glucose) hypoglycemia #60 tabs metoprolol succinate 25 mg 25 mg PO QAM #30 tabs 02/13/25 03/26/25 Rx tablet,extended release 24 hr (Toprol XL) insulin glargine 100 unit/mL (3 16 unit subcut QPM 02/15/25 03/26/25 History mL) subcutaneous pen (Basaglar KwikPen U-100 Insulin) venlafaxine 150 mg 150 mg PO DAILY #90 caps 02/15/25 03/26/25 Rx capsule,extended release 24 hr clopidogrel 75 mg tablet 75 mg PO DAILY #30 tabs 03/04/25 03/26/25 Rx apixaban 5 mg tablet (Eliquis) 5 mg PO BID #180 tabs 03/23/25 03/26/25 Rx 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 sensor (FreeStyle #2 ea 03/25/25 03/26/25 Rx James 3 Plus Sensor device) sacubitril 24 mg-valsartan 26 mg 1 tablet PO BID 03/26/25 03/26/25 History tablet (Entresto) Laboratory Tests 03/29/25 03/29/25 03/29/25 16:47 18:28 20:21 POC Capillary Glucose 188 H mg/dl 326 H mg/dl (65-105) (65-105) NT-Pro-B Natriuret Pep 2090 H pg/mL (19.9-100) 03/30/25 03/30/25 07:52 11:32 POC Capillary Glucose 193 H mg/dl 181 H mg/dl (65-105) (65-105) NT-Pro-B Natriuret Pep Patient hx anesthesia problems: none Family hx anesthesia problems: none Results Review: All pre-operative results and documents have been reviewed as part of the pre-operative evaluation. 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 Colon, diverticulosis Haemophilus infection Hypotension Anxiety and depression TIA (transient ischemic attack) 2012 HTN (hypertension) Hypomagnesemia Screening for colon cancer Mini stroke (~2012) Chronic headaches Acid reflux Diabetes Arthritis Surgical History Surgical History History of hand surgery trigger finger -right 3rd finger x3 History of bladder suspension procedure History of arthroscopy of left knee H/O: hysterectomy (~1979) Family History Family History Father Hypertension Mother Breast cancer Social History Social History Social History: Patient declined SDOH 02/12/24 Smoking status: Former smoker Additional smoking assessment comments: quit smoking about 40 years ago Alcohol intake: current Drinks per week: 1 Alcohol use details: OCC. Substance use: never Substance use type: does not use Do You Feel Safe in your Home?: Yes Lack of Transportation: No Lack of Food: Never True Current Housing: I Have Housing Concerned About Future Housing: No Difficulty Paying Gas/Electric Bills: No Difficulty Paying for Meds: No Currently Unemployed: No Education: High School Diploma/GED Difficulty w/ Childcare or Family Care: No Living arrangements: alone Occupation/Education: retired Gender identity (if verbalized by the patient): Female Spiritual care concerns: No Agree to blood products: Yes Anes - Eval Final PreProcedure Day of Procedure 03/30/25 12:35 Patient weight: obese Lungs: normal air movement Airway: Mallampati scale class II Neurological: alert and oriented Last oral intake: >/= 8 hours ASA classification: IV Emergent: no Anesthetic plan: proceed Anesthesia type and monitoring: general GIVS and standard monitoring Results Review: All pre-operative results and documents have been reviewed as part of the pre-operative evaluation. HTN, hyperlpidemia, ischemic CM w LVEF 25%, stable, afib, DM, now w anemia and needing colonoscopy. Cardio note appreciated and ECHO reviewed. Informed Consent: The patient's anesthetic plan and its attendant risks and benefits were discussed with the patient/family/POA. Questions were solicited and answers provided to the satisfaction of the patient/family/POA.
--- NOTE | 2025-03-30 13:25 | S_PTH ---
PATIENT: Ailyn Neff LOC: [id number] U#:[id number] AGE/SX: 79/F ROOM: 323 RE03/28/[address]: Chiraa Ramos APRN : 1945 BED: 01 DIS: 04/03/2025 SPEC #: [id number] RECD: 03/30/25 13:33 STATUS: BENNIE RECarmen #: [id number] YANY: 03/30/25 13:[address]: Chris Xavier DEPT: [facility] Surgical RECD BY: Staci Duarte ENTERED: 03/30/25 13:34 SP TYPE: Surgical OTHR DR: MD Rosalind Vargas, WINDSCREEN FITTER-C Hellen Jarquin PA-C Tissues: A - Colon Polypectomy Procedures: Hematoxylin and Eosin Stain Gross and Microscopic Level 4
[2025-03-30] MEDS: EMPAGLIFLOZIN 10 MG TABLET PO (15:06)
[2025-03-30] MEDS: VENLAFAXINE HCL XR 75 MG CAP.ER.24H 150 MG PO (15:06)
[2025-03-30] MEDS: METOPROLOL SUCCINATE EXT REL 25 MG TABCR PO (15:06)
[2025-03-30] MEDS: CLOPIDOGREL BISULFATE 75 MG TABLET PO (15:06)
[2025-03-30] MEDS: MAGNESIUM OXIDE 400 MG TABLET PO (15:07)
--- NOTE | 2025-03-30 15:11 | P.PNIM_ITS ---
Progress Note: A&P Assessment and Plan (1) Ischemic cardiomyopathy: Code(s): I25.5 - Ischemic cardiomyopathy Status: Chronic Assessment and Plan: 01/28 [place] with stent to the LAD. Echo on 01/20/2025: EF 25-30. 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 -patient refused LifeVest at discharge. -continue Entresto, metoprolol, Jardiance -monitor BP as patient tends to run low Chest x-ray appears appears to have pulmonary edema however radiology read states normal Patient has no complaints of shortness of breath will do a two view tomorrow morning Likely discharge home tomorrow (2) Rectal bleed: Code(s): K62.5 - Hemorrhage of anus and rectum Status: Acute Assessment and Plan: New onset lower GI bleed. Patient recently started on Eliquis and Plavix post DE in January. No obvious etiology on abdominal pelvic CT. Rectal exam in ED positive for dark red blood. -GI consult; scope on Saturday -serial H&H. Stable Transfuse for hemoglobin less than 7 or symptomatic - diet NPO -continue to hold Eliquis Okay for Plavix for GI Colonoscopy shows multiple like diverticuli, no colitis, There was a single 3 mm polyp observed in the transverse colon. A cold snare polypectomy was performed. The polyp was completely excised (3) Hypotension: Code(s): I95.9 - Hypotension, unspecified Status: Acute Assessment and Plan: Hemoglobin stable DC IV fluids due CHF Hold blood pressure medications (4) Bacteria in urine: Code(s): R82.71 - Bacteriuria Status: Acute Assessment and Plan: UA with 3+ glucose, 1+ leukocyte Estrace, WBC 51-100, 1+ bacteria. Patient has a history of frequent UTIs. Denies UTI symptoms, no leukocytosis, no fever. Culture pending Due to hypotension without acute blood loss he will start antibiotics IV Rocephin (5) Diabetes: Qualifiers: Diabetes mellitus complication status: without complication Diabetes mellitus custodial insulin use: with custodial use Diabetes mellitus type: type 2 Qualified Code(s): E11.9 - Type 2 diabetes mellitus without complications; Z79.4 - half-way (current) use of insulin Code(s): E11.9 - Type 2 diabetes mellitus without complications Status: Chronic Assessment and Plan: - hypoglycemia protocol - POC blood glucose ACHS - home medication: Jardiance, Lantus - correct regimen ordered: Low-dose corrective scale (6) Anxiety and depression: Code(s): F41.9 - Anxiety disorder, unspecified; F32.A - Depression, unspecified Status: Chronic Assessment and Plan: Continue Effexor daily Plan Diet: NPO GI prophylaxis: NA DVT prophylaxis: SCDs lines/drains: PIV Fluids: SLIV Code status: Full Subjective Date/time seen: 03/30/25 15:11 Interval history: 79-year-old female with a past medical history of anxiety, TIA, HTN, headaches, GERD, DM2, recent DE presents to the ED on 03/26 with complaints of dark stool found to have rectal bleeding with GI consulted. GI with like a cardiac workup before patient has a scope echocardiogram on 01/20/2025 showed an EF of 25-30%. Chest x-ray appears to have pulmonary edema. Colonoscopy shows multiple like diverticuli, no colitis, There was a single 3 mm polyp observed in the transverse colon. A cold snare polypectomy was performed. The polyp was completely excised Review of Systems Review of Systems: 12 systems were reviewed and are negativ e except for as per HPI. Exam Narrative: General: Ill-appearing HEENT: normocephalic, atraumatic. Mucous membranes moist. EOMI, PERRLA, bilateral sclera anicteric, no conjunctival injection. Neck supple without JVD, lymphadenopathy, or bruit. Respiratory: clear bilaterally. No rales/rhonic/wheezes. Cardiovascular: Regular rate and rhythm, normal S1-S2. No murmurs, rubs, or clicks. PMI is nondisplaced, capillary refill less than 3 second. Abdomen: Soft, round, no pulsatile masses, nondistended and nontender. No rebound, no guarding. Bowel sounds present to all four quadrants. No high pitch or tinkling sounds, resonant to percussion. Extremities: No cyanosis, clubbing, or edema present. Pulses are palpable 2/2. Active ROM to all four extremities. Neuro: Alert and orientated x 4. PERRLA. Cranial nerves 2-12 intact without focal deficit. Skin: Warm, dry, and intact, without rash, erythema, or lesion. Psych: pleasant, cooperative, normal speech, normal affect, no hallucinations, no dysarthia Objective Data Vital Signs Vital Signs: Vital Signs - 24 hr 03/29/25 19:02 03/29/25 20:00 03/29/25 20:00 Temperature 97.6 F Pulse Rate 101 H 101 H Respiratory Rate 18 Blood Pressure 100/55 L Pulse Oximetry 94 Oxygen Delivery Room Air 03/29/25 20:00 03/29/25 20:00 03/29/25 22:34 Temperature 98 F Pulse Rate 103 H 103 H 108 H Respiratory Rate 16 14 18 Blood Pressure 120/77 110/67 106/58 L Pulse Oximetry 97 99 97 Oxygen Delivery 03/30/25 00:00 03/30/25 04:00 03/30/25 04:30 Temperature 98 F Pulse Rate 109 H 115 H 101 H Respiratory Rate 18 Blood Pressure 109/74 Pulse Oximetry 94 Oxygen Delivery 03/30/25 08:00 03/30/25 08:00 03/30/25 11:00 Temperature 98.6 F Pulse Rate 106 H 102 H Respiratory Rate 16 Blood Pressure 126/79 Pulse Oximetry 93 Oxygen Delivery Room Air 03/30/25 11:00 03/30/25 11:01 03/30/25 11:02 Temperature Pulse Rate Respiratory Rate Blood Pressure 121/73 126/84 101/68 Pulse Oximetry Oxygen Delivery 03/30/25 13:29 03/30/25 13:39 03/30/25 13:49 Temperature Pulse Rate 105 H 101 H 103 H Respiratory Rate 20 22 H 20 Blood Pressure 131/82 134/86 115/61 Pulse Oximetry 100 98 99 Oxygen Delivery Room Air Room Air Room Air 03/30/25 15:06 Temperature Pulse Rate 103 H Respiratory Rate Blood Pressure Pulse Oximetry Oxygen Delivery Intake/Output Intake/Output: Intake & Output 03/27/25 03/28/25 03/29/25 03/30/25 23:59 23:59 23:59 23:59 Intake Total 3668 1370 3230.0 460 Balance 3668 1370 3230.0 460 Meds/Results Medications: Active Medications Generic Name Dose Route Start Last Admin Trade Name Freq PRN Reason Stop Dose Admin Acetaminophen 650 mg 03/26/25 14:10 Acetaminophen 325 Mg Tablet PO Q4H PRN Mild Pain (1-3) or Fever Acetaminophen 500 mg 03/26/25 17:28 Acetaminophen 500 Mg Tablet PO Q6H PRN fever or pain Clopidogrel Bisulfate 75 mg 03/28/25 09:00 03/30/25 15:06 Clopidogrel Bisulfate 75 Mg Tablet PO 75 mg QAM DOYLE Administration Dextrose 12.5 gm 03/26/25 17:29 Dextrose 50% 25 Gm/50 Ml Syringe IV PUSH PRN PRN Hypoglycemia Protocol Empagliflozin 10 mg 03/27/25 09:00 03/30/25 15:06 Empagliflozin 10 Mg Tablet PO 10 mg DAILY DOYLE Administration Glucagon 1 mg 03/26/25 17:29 Glucagon For Inj 1 Mg Vial IM PRN PRN Hypoglycemia Protocol Glucose 15 gm 03/26/25 17:29 Glucose Oral Gel 15 Gm Of Glucse In 37.5 Gm Tube PO PRN PRN Hypoglycemia Protocol Dextrose 1,000 mls @ 100 mls/hr 03/26/25 17:29 Dextrose 5% 1,000 Ml IVPB PRN PRN Hypoglycemia Protocol Ceftriaxone Sodium 1 gm/ 50 mls @ 100 mls/hr 03/29/25 09:00 03/30/25 09:36 Sodium Chloride IVPB Infused Q24H DOYLE Infusion Insulin Aspart 2 - 5 units 03/26/25 17:30 03/30/25 12:00 Insulin Aspart (*Bkc) 100 Units/Ml SUB-Q Not Given TIDWM DOYLE Protocol Insulin Aspart 1 - 2 units 03/27/25 21:00 03/29/25 20:36 Insulin Aspart (*Bkc) 100 Units/Ml SUB-Q 2 units HS DOYLE Administration Protocol Magnesium Oxide 400 mg 03/27/25 09:00 03/30/25 15:07 Magnesium Oxide 400 Mg Tablet PO 400 mg DAILY DOYLE Administration Metoprolol Succinate 25 mg 03/27/25 09:00 03/30/25 15:06 Metoprolol Succinate Ext Rel 25 Mg Tabcr PO 25 mg QAM DOYLE Administration Ondansetron HCl 4 mg 03/29/25 03:12 03/29/25 03:23 Ondansetron Inj 4 Mg/2 Ml Vial IV PUSH 4 mg Q4H PRN Administration Nausea And Vomiting Rosuvastatin Calcium 20 mg 03/26/25 21:00 03/29/25 20:30 Rosuvastatin 20 Mg Tablet PO 20 mg QHS DOYLE Administration Sacubitril/Valsartan 1 tab 03/27/25 09:00 03/28/25 21:19 Sacubitril/Valsartan 24-26 Mg Tablet PO 1 tab On Hold: 03/29/25 08:54 Q12HR DOYLE Administration Venlafaxine HCl 150 mg 03/27/25 09:00 03/30/25 15:06 Venlafaxine Hcl Xr 75 Mg Cap.Er.24h PO 150 mg DAILY DOYLE Administration Radiology Results: ITS Impressions Abdomen/Pelvis CT 03/26/25 13:24 IMPRESSION: 1. . No acute intra-abdominal/pelvic process. 2. Diverticulosis. Chest X-Ray 03/29/25 13:47 Impression: No acute cardiopulmonary abnormality. Labs Labs: Laboratory Results - last 24 hr 03/29/25 03/29/25 03/29/25 16:47 18:28 20:21 POC Capillary Glucose 188 H 326 H NT-Pro-B Natriuret Pep 2090 H 03/30/25 03/30/25 03/30/25 07:52 11:32 12:27 POC Capillary Glucose 193 H 181 H 180 H NT-Pro-B Natriuret Pep 03/30/25 13:54 POC Capillary Glucose 162 H NT-Pro-B Natriuret Pep Quality VTE Prophylaxis VTE prophylaxis: mechanical ordered
[2025-03-30] MEDS: INSULIN ASPART (*BKC) 100 UNITS/ML SUB-Q ×2 (18:49→20:45)
[2025-03-30] MEDS: ROSUVASTATIN 20 MG TABLET PO (20:44)
[2025-03-31] VITALS (13 sets, daily range): BP systolic 93–131; BP diastolic 57–74; PULSE 53–118; RESP 17–20; TEMP 36.2–37.6; O2SAT 96–100
[2025-03-31] MEDS: ACETAMINOPHEN 325 MG TABLET 650 MG PO ×2 (01:14→13:09)
[2025-03-31] MEDS: cefTRIAXone 1 GM in SODIUM CHLORIDE 0.9% IV 50 ML 100 ML IVPB (08:39)
[2025-03-31] MEDS: VENLAFAXINE HCL XR 75 MG CAP.ER.24H 150 MG PO (08:40)
[2025-03-31] MEDS: CLOPIDOGREL BISULFATE 75 MG TABLET PO (08:40)
[2025-03-31] MEDS: MAGNESIUM OXIDE 400 MG TABLET PO (08:40)
[2025-03-31] MEDS: METOPROLOL SUCCINATE EXT REL 25 MG TABCR PO (08:40)
[2025-03-31] MEDS: EMPAGLIFLOZIN 10 MG TABLET PO (08:40)
--- NOTE | 2025-03-31 09:59 | PM.PNCARD ---
Progress Note: A&P Assessment and Plan (1) Ischemic cardiomyopathy: Code(s): I25.5 - Ischemic cardiomyopathy Status: Chronic (2) ST elevation (STEMI) myocardial infarction: Code(s): I21.3 - ST elevation (STEMI) myocardial infarction of unspecified site Status: Acute (3) Paroxysmal atrial fibrillation: Code(s): I48.0 - Paroxysmal atrial fibrillation Status: Acute (4) Hyperlipidemia LDL goal <70: Code(s): E78.5 - Hyperlipidemia, unspecified Status: Acute (5) HTN (hypertension): Code(s): I10 - Essential (primary) hypertension Status: Acute Plan Assessment: Acute GI bleed-resolved; GI scope did not reveal any active bleeding site Ischemic cardiomyopathy with LVEF of 25% Moderate MR STEMI status post PCI to LAD in 01/2025 on Eliquis and Plavix Hypertension Diabetes mellitus History of TIA Paroxysmal atrial fibrillation on chronic anticoagulation with Eliquis-she is currently in sinus rhythm Plan: -Continue guideline directed medical therapy for ischemic cardiomyopathy with beta-christa, empagliflozin, Entresto -Continue statin -Hold Eliquis for 5 more days as per GI recommendations. 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 Neff. Cardiology will sign off. Please call us with any questions. Subjective Date/time seen: 03/31/25 09:59 Interval history: Interval history: Chest pain shortness breath dizziness. Telemetry shows sinus rhythm with rates 90s. Review of Systems Review of Systems: A complete review of systems was performed and pertinent positives are reported in the HPI. Exam Narrative: General: Alert oriented x3, no acute distress Neck: Supple, no JVD Chest: Bilaterally clear to auscultation, no rales or rhonchi Cardiac: S1, S2 +, regular rate, regular rhythm, no murmurs or rubs Extremities: No pedal edema, no skin rash Neurologic: Alert and oriented x3, no focal neurological deficits Objective Data Vital Signs Vital Signs: Vital Signs - 24 hr 03/30/25 11:00 03/30/25 11:00 03/30/25 11:01 Temperature 37.0 C Pulse Rate 102 H Respiratory Rate 16 Blood Pressure 126/79 121/73 126/84 Pulse Oximetry 93 Oxygen Delivery 03/30/25 11:02 03/30/25 12:00 03/30/25 13:29 Temperature Pulse Rate 100 105 H Respiratory Rate 20 Blood Pressure 101/68 131/82 Pulse Oximetry 100 Oxygen Delivery Room Air 03/30/25 13:39 03/30/25 13:49 03/30/25 15:06 Temperature Pulse Rate 101 H 103 H 103 H Respiratory Rate 22 H 20 Blood Pressure 134/86 115/61 Pulse Oximetry 98 99 Oxygen Delivery Room Air Room Air 03/30/25 16:00 03/30/25 20:00 03/30/25 20:00 Temperature Pulse Rate 105 H 112 H Respiratory Rate Blood Pressure Pulse Oximetry Oxygen Delivery Room Air 03/30/25 21:26 03/31/25 00:00 03/31/25 04:00 Temperature 37.2 C Pulse Rate 110 H 118 H 103 H Respiratory Rate 20 Blood Pressure 117/70 Pulse Oximetry 95 Oxygen Delivery 03/31/25 05:34 03/31/25 08:00 03/31/25 08:00 Temperature 36.9 C 36.2 C L Pulse Rate 97 103 H 106 H Respiratory Rate 20 19 Blood Pressure 99/57 L 131/74 Pulse Oximetry 96 99 Oxygen Delivery 03/31/25 08:03 03/31/25 08:05 03/31/25 08:40 Temperature 36.2 C L 36.3 C L Pulse Rate 109 H 110 H 107 H Respiratory Rate 20 19 Blood Pressure 128/71 99/64 L Pulse Oximetry 100 97 Oxygen Delivery Intake/Output Intake/Output: Intake & Output 03/28/25 03/29/25 03/30/25 03/31/25 23:59 23:59 23:59 23:59 Intake Total 1370 3230.0 700 1240 Balance 1370 3230.0 700 1240 Meds/Results Medications: Active Medications Generic Name Dose Route Start Last Admin Trade Name Freq PRN Reason Stop Dose Admin Acetaminophen 650 mg 03/26/25 14:10 03/31/25 01:14 Acetaminophen 325 Mg Tablet PO 650 mg Q4H PRN Administration Mild Pain (1-3) or Fever Acetaminophen 500 mg 03/26/25 17:28 Acetaminophen 500 Mg Tablet PO Q6H PRN fever or pain Clopidogrel Bisulfate 75 mg 03/28/25 09:00 03/31/25 08:40 Clopidogrel Bisulfate 75 Mg Tablet PO 75 mg QAM DOYLE Administration Dextrose 12.5 gm 03/26/25 17:29 Dextrose 50% 25 Gm/50 Ml Syringe IV PUSH PRN PRN Hypoglycemia Protocol Empagliflozin 10 mg 03/27/25 09:00 03/31/25 08:40 Empagliflozin 10 Mg Tablet PO 10 mg DAILY DOYLE Administration Glucagon 1 mg 03/26/25 17:29 Glucagon For Inj 1 Mg Vial IM PRN PRN Hypoglycemia Protocol Glucose 15 gm 03/26/25 17:29 Glucose Oral Gel 15 Gm Of Glucse In 37.5 Gm Tube PO PRN PRN Hypoglycemia Protocol Dextrose 1,000 mls @ 100 mls/hr 03/26/25 17:29 Dextrose 5% 1,000 Ml IVPB PRN PRN Hypoglycemia Protocol Ceftriaxone Sodium 1 gm/ 50 mls @ 100 mls/hr 03/29/25 09:00 03/31/25 08:39 Sodium Chloride IVPB 100 mls/hr Q24H DOYLE Administration Insulin Aspart 2 - 5 units 03/26/25 17:30 03/31/25 08:13 Insulin Aspart (*Bkc) 100 Units/Ml SUB-Q Not Given TIDWM DOYLE Protocol Insulin Aspart 1 - 2 units 03/27/25 21:00 03/30/25 20:45 Insulin Aspart (*Bkc) 100 Units/Ml SUB-Q 1 units HS DOYLE Administration Protocol Magnesium Oxide 400 mg 03/27/25 09:00 03/31/25 08:40 Magnesium Oxide 400 Mg Tablet PO 400 mg DAILY DOYLE Administration Metoprolol Succinate 25 mg 03/27/25 09:00 03/31/25 08:40 Metoprolol Succinate Ext Rel 25 Mg Tabcr PO 25 mg QAM DOYLE Administration Ondansetron HCl 4 mg 03/29/25 03:12 03/29/25 03:23 Ondansetron Inj 4 Mg/2 Ml Vial IV PUSH 4 mg Q4H PRN Administration Nausea And Vomiting Rosuvastatin Calcium 20 mg 03/26/25 21:00 03/30/25 20:44 Rosuvastatin 20 Mg Tablet PO 20 mg QHS DOYLE Administration Sacubitril/Valsartan 1 tab 03/27/25 09:00 03/28/25 21:19 Sacubitril/Valsartan 24-26 Mg Tablet PO 1 tab On Hold: 03/29/25 08:54 Q12HR DOYLE Administration Venlafaxine HCl 150 mg 03/27/25 09:00 03/31/25 08:40 Venlafaxine Hcl Xr 75 Mg Cap.Er.24h PO 150 mg DAILY DOYLE Administration Radiology Results: ITS Impressions Abdomen/Pelvis CT 03/26/25 13:24 IMPRESSION: 1. . No acute intra-abdominal/pelvic process. 2. Diverticulosis. Chest X-Ray 03/31/25 08:25 Impression: No acute cardiopulmonary abnormality. Labs Labs: Laboratory Results - last 24 hr 03/30/25 03/30/25 03/30/25 11:32 12:27 13:54 POC Capillary Glucose 181 H 180 H 162 H 03/30/25 03/30/25 03/31/25 17:44 20:43 07:31 POC Capillary Glucose 206 H 229 H 172 H
--- NOTE | 2025-03-31 10:03 | P.PNIM_ITS ---
Progress Note: A&P Assessment and Plan (1) Ischemic cardiomyopathy: Code(s): I25.5 - Ischemic cardiomyopathy Status: Chronic Assessment and Plan: 01/28 [place] with stent to the LAD. Echo on 01/20/2025: EF 25-30. 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 -patient refused LifeVest at discharge. -continue Entresto, metoprolol, Jardiance -monitor BP as patient tends to run low Chest x-ray appears appears to have pulmonary edema however radiology read states normal Patient has no complaints of shortness of breath, CXR No acute cardiopulmonary abnormality. this AM C/o R CP today with radiation to the back, VSS. -EKG obtained: SINUS TACHYCARDIA WITH FREQUENT VENTRICULAR PREMATURE COMPLEXES ABNORMAL RHYTHM ECG; PVCs new. Pt with cards f/u outpt (2) Rectal bleed: Code(s): K62.5 - Hemorrhage of anus and rectum Status: Acute Assessment and Plan: New onset lower GI bleed. Patient recently started on Eliquis and Plavix post [place] in January. No obvious etiology on abdominal pelvic CT. Rectal exam in ED positive for dark red blood. -GI consult; scope on Saturday -serial H&H. Stable Transfuse for hemoglobin less than 7 or symptomatic - diet NPO -continue to hold Eliquis Okay for Plavix for GI Colonoscopy shows multiple like diverticuli, no colitis, There was a single 3 mm polyp observed in the transverse colon. A cold snare polypectomy was performed. The polyp was completely excised Nursing alerted me blood in toilet bowl s/p BM this AM. [place] states this is OK, f/u with GI outpt. Repeat CBC with WDL hgb. -Will keep overnight for observation and lab draw. Probable D/C tomorrow. (3) Hypotension: Code(s): I95.9 - Hypotension, unspecified Status: Acute Assessment and Plan: Hemoglobin stable DC IV fluids due CHF Hold blood pressure medications (4) Bacteria in urine: Code(s): R82.71 - Bacteriuria Status: Acute Assessment and Plan: UA with 3+ glucose, 1+ leukocyte Estrace, WBC 51-100, 1+ bacteria. Patient has a history of frequent UTIs. Denies UTI symptoms, no leukocytosis, no fever. 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 Code(s): E11.9 - Type 2 diabetes mellitus without complications Status: Chronic Assessment and Plan: - hypoglycemia protocol - POC blood glucose ACHS - home medication: Daniel Peters - correct regimen ordered: Low-dose corrective scale (6) Anxiety and depression: Code(s): F41.9 - Anxiety disorder, unspecified; F32.A - Depression, unspecified Status: Chronic Assessment and Plan: Continue Effexor daily Plan Diet: Reg GI prophylaxis: NA DVT prophylaxis: SCDs lines/drains: PIV Fluids: SLIV Code status: 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 She is c/o BRYAN, R sided chest pain, and feeling weak. Pt reports another bout of bloody stools today. Review of Systems Review of Systems: 12 systems were reviewed and are negativ e except for as per HPI. All systems reviewed & are unremarkable except as noted in HPI and below Exam Const: General: no acute distress and uncomfortable HENMT: Face/Nose/Sinus: Normal nares present Mouth: Yes moist mucous membra jacklyn Eyes: General: appearance normal, both eyes and all related structures Sclera: sclerae normal Neck: Neck: supple Resp: Effort & Inspection: normal respiratory effort Auscultation: clear to auscultation bilaterally Cardio: Rate: tachycardic Rhythm: regular rhythm GI: Inspection: non-distended Auscultation: normal bowel sounds Other: No TTP Skin: General skin exam: normal color and no rashes or lesions noted Neuro: Speech: normal speech Motor exam (neuro): Normal motor muscle tone present throughout Sensory Exam: normal sensation Extrem: General: normal to inspection Psych: Mental Status: mental status grossly normal Affect: normal affect Objective Data Vital Signs Vital Signs: Vital Signs - 24 hr 03/30/25 11:00 03/30/25 11:00 03/30/25 11:01 Temperature 98.6 F Pulse Rate 102 H Respiratory Rate 16 Blood Pressure 126/79 121/73 126/84 Pulse Oximetry 93 Oxygen Delivery 03/30/25 11:02 03/30/25 12:00 03/30/25 13:29 Temperature Pulse Rate 100 105 H Respiratory Rate 20 Blood Pressure 101/68 131/82 Pulse Oximetry 100 Oxygen Delivery Room Air 03/30/25 13:39 03/30/25 13:49 03/30/25 15:06 Temperature Pulse Rate 101 H 103 H 103 H Respiratory Rate 22 H 20 Blood Pressure 134/86 115/61 Pulse Oximetry 98 99 Oxygen Delivery Room Air Room Air 03/30/25 16:00 03/30/25 20:00 03/30/25 20:00 Temperature Pulse Rate 105 H 112 H Respiratory Rate Blood Pressure Pulse Oximetry Oxygen Delivery Room Air 03/30/25 21:26 03/31/25 00:00 03/31/25 04:00 Temperature 98.9 F Pulse Rate 110 H 118 H 103 H Respiratory Rate 20 Blood Pressure 117/70 Pulse Oximetry 95 Oxygen Delivery 03/31/25 05:34 03/31/25 08:00 03/31/25 08:00 Temperature 98.4 F 97.1 F L Pulse Rate 97 103 H 106 H Respiratory Rate 20 19 Blood Pressure 99/57 L 131/74 Pulse Oximetry 96 99 Oxygen Delivery 03/31/25 08:03 03/31/25 08:05 03/31/25 08:40 Temperature 97.2 F L 97.3 F L Pulse Rate 109 H 110 H 107 H Respiratory Rate 20 19 Blood Pressure 128/71 99/64 L Pulse Oximetry 100 97 Oxygen Delivery Intake/Output Intake/Output: Intake & Output 03/28/25 03/29/25 03/30/25 03/31/25 23:59 23:59 23:59 23:59 Intake Total 1370 3230.0 700 1240 Balance 1370 3230.0 700 1240 Meds/Results Medications: Active Medications Generic Name Dose Route Start Last Admin Trade Name Freq PRN Reason Stop Dose Admin Acetaminophen 650 mg 03/26/25 14:10 03/31/25 01:14 Acetaminophen 325 Mg Tablet PO 650 mg Q4H PRN Administration Mild Pain (1-3) or Fever Acetaminophen 500 mg 03/26/25 17:28 Acetaminophen 500 Mg Tablet PO Q6H PRN fever or pain Clopidogrel Bisulfate 75 mg 03/28/25 09:00 03/31/25 08:40 Clopidogrel Bisulfate 75 Mg Tablet PO 75 mg QAM DOYLE Administration Dextrose 12.5 gm 03/26/25 17:29 Dextrose 50% 25 Gm/50 Ml Syringe IV PUSH PRN PRN Hypoglycemia Protocol Empagliflozin 10 mg 03/27/25 09:00 03/31/25 08:40 Empagliflozin 10 Mg Tablet PO 10 mg DAILY DOYLE Administration Glucagon 1 mg 03/26/25 17:29 Glucagon For Inj 1 Mg Vial IM PRN PRN Hypoglycemia Protocol Glucose 15 gm 03/26/25 17:29 Glucose Oral Gel 15 Gm Of Glucse In 37.5 Gm Tube PO PRN PRN Hypoglycemia Protocol Dextrose 1,000 mls @ 100 mls/hr 03/26/25 17:29 Dextrose 5% 1,000 Ml IVPB PRN PRN Hypoglycemia Protocol Ceftriaxone Sodium 1 gm/ 50 mls @ 100 mls/hr 03/29/25 09:00 03/31/25 08:39 Sodium Chloride IVPB 100 mls/hr Q24H DOYLE Administration Insulin Aspart 2 - 5 units 03/26/25 17:30 03/31/25 08:13 Insulin Aspart (*Bkc) 100 Units/Ml SUB-Q Not Given TIDWM DOYLE Protocol Insulin Aspart 1 - 2 units 03/27/25 21:00 03/30/25 20:45 Insulin Aspart (*Bkc) 100 Units/Ml SUB-Q 1 units HS DOYLE Administration Protocol Magnesium Oxide 400 mg 03/27/25 09:00 03/31/25 08:40 Magnesium Oxide 400 Mg Tablet PO 400 mg DAILY DOYLE Administration Metoprolol Succinate 25 mg 03/27/25 09:00 03/31/25 08:40 Metoprolol Succinate Ext Rel 25 Mg Tabcr PO 25 mg QAM DOYLE Administration Ondansetron HCl 4 mg 03/29/25 03:12 03/29/25 03:23 Ondansetron Inj 4 Mg/2 Ml Vial IV PUSH 4 mg Q4H PRN Administration Nausea And Vomiting Rosuvastatin Calcium 20 mg 03/26/25 21:00 03/30/25 20:44 Rosuvastatin 20 Mg Tablet PO 20 mg QHS DOYLE Administration Sacubitril/Valsartan 1 tab 03/27/25 09:00 03/28/25 21:19 Sacubitril/Valsartan 24-26 Mg Tablet PO 1 tab On Hold: 03/29/25 08:54 Q12HR DOYLE Administration Venlafaxine HCl 150 mg 03/27/25 09:00 03/31/25 08:40 Venlafaxine Hcl Xr 75 Mg Cap.Er.24h PO 150 mg DAILY DOYLE Administration Radiology Results: ITS Impressions Abdomen/Pelvis CT 03/26/25 13:24 IMPRESSION: 1. . No acute intra-abdominal/pelvic process. 2. Diverticulosis. Chest X-Ray 03/31/25 08:25 Impression: No acute cardiopulmonary abnormality. Labs Labs: Laboratory Results - last 24 hr 03/30/25 03/30/25 03/30/25 11:32 12:27 13:54 POC Capillary Glucose 181 H 180 H 162 H 03/30/25 03/30/25 03/31/25 17:44 20:43 07:31 POC Capillary Glucose 206 H 229 H 172 H Quality VTE Prophylaxis VTE prophylaxis: mechanical ordered
--- NOTE | 2025-03-31 10:05 | PC.NURSE ---
Patient called this nurse to the bathroom to show that she had blood in the toilet after an attempted bowel movement. Called hospitalist Chiara and she is going to put in a CBC order. Called Dr. Xavier as well and he said as long as CBC is fine he is not concerned and patient should be okay to d/c.
[2025-03-31 11:07] LABS: Hematocrit 39.0 % (37.0-47.0); Hemoglobin 12.8 g/dL (12.0-15.0); Mean Corpuscular HGB Conc 32.8 g/dl (32-36); Mean Corpuscular Hemoglobin 31.0 pg (26-34); Mean Corpuscular Volume 94.4 fl (80-100); Platelet Count Result 216 k/mm3 (150-375); Red Blood Count 4.13 M/mm3 (4.2-5.4); White Blood Count 12.8 K/mm3 (4.5-10.0)
--- NOTE | 2025-03-31 11:32 | PM.DS ---
DS: Admitting Diagnosis Discharge Date 03/31/2025 DS: Summary Time Spent with Patient Time attestation: Total time spent providing and/or coordinating discharge services: DS: Data Data Completed and Pending Completed studies during hospitalization: Pending at discharge 03/30/25 13:25 Surgical [PTH] Routine Labs on day of discharge: Labs from last 24 hours 03/31/25 03/31/25 03/30/25 10:46 07:31 20:43 WBC 12.8 H RBC 4.13 L Hgb 12.8 Hct 39.0 MCV 94.4 MCH 31.0 MCHC 32.8 RDW 13.2 Plt Count 216 MPV 10.2 POC Capillary Glucose 172 H 229 H 03/30/25 03/30/25 03/30/25 17:44 13:54 12:27 WBC RBC Hgb Hct MCV MCH MCHC RDW Plt Count MPV POC Capillary Glucose 206 H 162 H 180 H 03/30/25 11:32 WBC RBC Hgb Hct MCV MCH MCHC RDW Plt Count MPV POC Capillary Glucose 181 H Discharge Plan Discharge Consulting providers: Chris Xavier; Rosalind Darden; Chiara Ramos Patient Instructions: Apixaban (By mouth) Patient Language: Irish Discharge Medications: No Action venlafaxine 150 mg capsule,extended release 24hr 150 mg PO DAILY Qty: 90 1RF (DME) pen needle, diabetic [Chante Pen Needle] 32 gauge x 5/32 needle See Rx Instructions .Route Qty: 400 1RF Rx Instructions: Use to administer insulin 4 times a day Jardiance 10 mg Tablet 10 mg PO DAILY Qty: 30 1RF rosuvastatin 20 mg Tablet 20 mg PO QHS Qty: 30 1RF sacubitril-valsartan [Entresto] 24-26 mg tablet 1 tablet PO BID acetaminophen 500 mg tablet 500 mg PO Q6H PRN (Reason: fever or pain) (DME) FreeStyle James 3 [place] Misc See Rx Instructions .Route Qty: 1 0RF Rx Instructions: As directed Tradjenta 5 mg tablet 5 mg PO QAM Qty: 90 1RF magnesium oxide 400 mg (241.3 mg magnesium) tablet 400 mg PO DAILY Qty: 90 0RF Gvoke HypoPen 2-Pack 1 mg/0.2 mL auto-injector 1 mg subcut ONCE PRN (Reason: hypoglycemia) Qty: 0.4 1RF Rx Instructions: may repeat once after 15 minutes if no response glucose [Dex4 Glucose] 4 gram tablet,chewable 16 g PO Q15M PRN (Reason: hypoglycemia) Qty: 60 1RF Rx Instructions: until symptoms of low blood sugar are controlled metoprolol succinate [Toprol XL] 25 mg tablet extended release 24 hr 25 mg PO QAM Qty: 30 1RF Rx Instructions: increased by cardiology 02/12/25 insulin glargine [Basaglar KwikPen U-100 Insulin] 100 unit/mL (3 mL) insulin pen 16 unit subcut QPM clopidogrel 75 mg tablet 75 mg PO DAILY Qty: 30 0RF Eliquis 5 mg tablet 5 mg PO BID Qty: 180 0RF (DME) FreeStyle James 3 Plus Sensor Device See Rx Instructions .Route Qty: 2 0RF Rx Instructions: change every 15 days Date of admission: 03/28/25 15:05 Primary Care Provider: Hellen Jarquin Admitting Provider: Bjorn Quinn Attending physician on admission: Bjorn Quinn Condition: Stable
[2025-03-31] MEDS: INSULIN ASPART (*BKC) 100 UNITS/ML SUB-Q ×2 (11:54→20:40)
--- NOTE | 2025-03-31 13:11 | ECG_ITS ---
Test Date: 2025-03-31 13:40:16 Measurements Intervals [place] Rate: 105 P: 66 MD: 186 QRS: 10 QRSD: 102 T: 28 QT: 376 QTc: 498 Interpretive Statements SINUS TACHYCARDIA WITH FREQUENT VENTRICULAR PREMATURE COMPLEXES ABNORMAL RHYTHM ECG Compared to ECG 03/29/2025 21:24:39 Ventricular premature complex(es) now present Myocardial infarct finding no longer present Electronically Signed On 03-31-2025 13:44:03 EMERGENCY MEDICAL TECHNICIAN BASIC by Omer Rios M.D.
[2025-03-31] MEDS: ROSUVASTATIN 20 MG TABLET PO (20:40)
[2025-04-01] VITALS (14 sets, daily range): BP systolic 106–125; BP diastolic 61–78; PULSE 108–120; RESP 17–21; TEMP 36.3–37.1; O2SAT 90–100
[2025-04-01 05:22] LABS: Hematocrit 38.9 % (37.0-47.0); Hemoglobin 12.8 g/dL (12.0-15.0); Immature Granulocyte Percent A 0.7 % (0-0.5); Lymphocytes Absolute Auto 1.57 K/mm3 (0.9-3.2); Mean Corpuscular HGB Conc 32.9 g/dl (32-36); Mean Corpuscular Hemoglobin 31.0 pg (26-34); Mean Corpuscular Volume 94.2 fl (80-100); Nucleated Red Blood Cells Absolute Auto 0.000 K/mm3 (0.0-0.012); Nucleated Red Blood Cells Perc 0.0 % (0.0-0.2); Platelet Count Result 232 k/mm3 (150-375); Red Blood Count 4.13 M/mm3 (4.2-5.4); White Blood Count 14.0 K/mm3 (4.5-10.0)
--- NOTE | 2025-04-01 05:34 | ECG_ITS ---
Test Date: 2025-04-01 05:52:16 Measurements Intervals [place] Rate: 106 P: 70 MD: 168 QRS: 5 QRSD: 98 T: 31 QT: 385 QTc: 513 Interpretive Statements SINUS TACHYCARDIA NONSPECIFIC INTRAVENTRICULAR CONDUCTION DELAY NONSPECIFIC T-WAVE ABNORMALITY POOR R-WAVE PROGRESSION ABNORMAL ECG Electronically Signed On 04-01-2025 08:53:40 LAY OUT CARPENTER by Adam Brown M.D.
[2025-04-01] MEDS: NITROGLYCERIN SL 0.4 MG TABLET SUBLINGUAL (05:41)
[2025-04-01 05:49] LABS: Alanine Aminotransferase 12 U/L (6-35); Albumin Level 3.7 g/dL (3.5-5.1); Alkaline Phosphatase 82 U/L (38-126); Anion Gap 8 mmol/L (4-12); Aspartate Amino Transferase 21 U/L (14-36); Bilirubin,Total 0.7 mg/dL (0.2-1.3); Blood Urea Nitrogen 8 mg/dL (7-17); Calcium 8.6 mg/dL (8.4-10.2); Carbon Dioxide 22 mmol/L (22-30); Chloride 104 mmol/L (98-107); Estimated CRCL calculation 50 ml/min; Estimated Glomerular Filt Rate > 60; Glucose 150 mg/dL (65-110); Potassium 3.3 mmol/L (3.4-5.0); Sodium 134 mmol/L (137-145); Total Protein 6.6 g/dL (6.3-8.2)
--- NOTE | 2025-04-01 06:01 | P.PNCROSS_ITS ---
Event Note Event Note Event Note: Nursing staff called this morning. The 8 had been in the room with the patient in the patient began complaining of chest pain. She went to inform the nurse. The nurse went in an aspiration questions patient was having right-sided chest pain that wraps around the eyes ever chest into her back. Pain was reproducible in some areas. Patient reported the pain is 8/10 intensity. I ordered an EKG and a sublingual nitro the patient had had prior non STEMI. The patient did not have any relief with the nitro. The patient's pain was atypical in seemed inconsistent with cardiac chest pain but given her history I had ordered a initial troponin and 3 are troponin. The nurse then called me back after patient had the nitro until me patient was not having any relief in her pain but he also informed me at that time that the GREETING CARD MAKER had been in the patient's room talking to the patient about if she was excited about going home today. The patient almost immediately began complaining of chest pain at that time. Patient's EKG was unchanged from baseline demonstrating to sinus tachycardia. I suspect that the patient is having some elements of anxiety. Will give 1 time dose of Ativan 0.5 mg.
[2025-04-01 06:12] LABS: Troponin I 0.039 ng/mL (0.000-0.034)
[2025-04-01] MEDS: POTASSIUM CHLORIDE 20 MEQ ER TABLET 40 MEQ PO (07:41)
[2025-04-01] MEDS: CLOPIDOGREL BISULFATE 75 MG TABLET PO (08:56)
[2025-04-01] MEDS: MAGNESIUM OXIDE 400 MG TABLET PO (08:56)
[2025-04-01] MEDS: VENLAFAXINE HCL XR 75 MG CAP.ER.24H 150 MG PO (08:56)
[2025-04-01] MEDS: cefTRIAXone 1 GM in SODIUM CHLORIDE 0.9% IV 50 ML 100 ML IVPB (08:56)
[2025-04-01] MEDS: EMPAGLIFLOZIN 10 MG TABLET PO (08:56)
[2025-04-01] MEDS: METOPROLOL SUCCINATE EXT REL 25 MG TABCR PO (08:57)
[2025-04-01] MEDS: POTASSIUM CHLORIDE 20 MEQ PACKET (FOR LIQUID) PO (08:57)
[2025-04-01 09:24] LABS: Troponin I 0.036 ng/mL (0.000-0.034)
--- NOTE | 2025-04-01 09:30 | PC.NURSE ---
tech reported pt c/o 8 chest pain. This started about 0500 and a cardiac workup was performed at that time. I went in to evaluate pt and she reports it feels like when I had the heart attack last with right sided chest pain up into her neck, and sharp pain with inspiration. Also, of note pt belching a lot during assessment. Hospitalist Chiara Ramos notified.
[2025-04-01] MEDS: CALCIUM CARBONATE (TUMS) 500 MG (200 MG ELEMENTAL) PO ×3 (09:40→22:56)
[2025-04-01] MEDS: INSULIN ASPART (*BKC) 100 UNITS/ML SUB-Q ×3 (12:16→20:20)
--- NOTE | 2025-04-01 12:28 | P.PNIM_ITS ---
Progress Note: A&P Assessment and Plan (1) Ischemic cardiomyopathy: Code(s): I25.5 - Ischemic cardiomyopathy Status: Chronic Assessment and Plan: 01/28 LA with stent to the LAD. Echo on 01/20/2025: EF 25-30. 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 -patient refused LifeVest at discharge. -continue Entresto, metoprolol, Jardiance -monitor BP as patient tends to run low Chest x-ray appears appears to have pulmonary edema however radiology read states normal Patient has no complaints of shortness of breath, CXR No acute cardiopulmonary abnormality. Pt with R sided CP around 0500 this AM, repeat EKG obtained with no real changes from prior EKGs. Trops mildly elevated initially, continued to downtrend with 3 hour lab. Pt with continued R CP with some mild alleviation from TUMS upon my rounds. Will schedule this, and continue to re-assess. Leery to discharge due to strong recent cardiac hx. Will continue to monitor. -Potentially repeat CXR in the AM after reassessing pain -Re-assessed pt later in the afternoon and she states that she continues to feel better Hypokalemia this AM, was given suppl by covering provider. Repeat labs in the AM. (2) Rectal bleed: Code(s): K62.5 - Hemorrhage of anus and rectum Status: Acute Assessment and Plan: New onset lower GI bleed. Patient recently started on Eliquis and Plavix post LA in January. No obvious etiology on abdominal pelvic CT. Rectal exam in ED positive for dark red blood. -GI consult; scope on Saturday -serial H&H. Stable Transfuse for hemoglobin less than 7 or symptomatic - diet NPO -continue to hold Eliquis Okay for Plavix for GI Colonoscopy shows multiple like diverticuli, no colitis, There was a single 3 mm polyp observed in the transverse colon. A cold snare polypectomy was performed. The polyp was completely excised Denies any bloody stool, last yesterday AM. (3) Hypotension: Code(s): I95.9 - Hypotension, unspecified Status: Acute Assessment and Plan: Hemoglobin stable DC IV fluids due CHF Hold blood pressure medications (4) Bacteria in urine: Code(s): R82.71 - Bacteriuria Status: Acute Assessment and Plan: UA with 3+ glucose, 1+ leukocyte Estrace, WBC 51-100, 1+ bacteria. Patient has a history of frequent UTIs. Continues to deny UTI symptoms, no leukocytosis, no fever. UC negative Rocephin d/c (5) Diabetes: Qualifiers: Diabetes mellitus complication status: without complication Diabetes mellitus shelter insulin use: with shelter use Diabetes mellitus type: type 2 Qualified Code(s): E11.9 - Type 2 diabetes mellitus without complications; Z79.4 - long term care pharmacist (current) use of insulin Code(s): E11.9 - Type 2 diabetes mellitus without complications Status: Chronic Assessment and Plan: - hypoglycemia protocol - POC blood glucose ACHS - home medication: Fran Lanjoby - correct regimen ordered: Low-dose corrective scale (6) Anxiety and depression: Code(s): F41.9 - Anxiety disorder, unspecified; F32.A - Depression, unspecified Status: Chronic Assessment and Plan: Continue Effexor daily L Plan Diet: Reg GI prophylaxis: NA DVT prophylaxis: SCDs lines/drains: PIV Fluids: SLIV Code status: Full Subjective Date/time seen: 04/01/25 0912 Interval history: Pt continues to c/o of R CP, mainly with intermittent inspiration. EKG and trops obtained overnight, no decrease of sx in CP with nitro either. Pt denies anxiety but does report some alleviation of the sx with tums. Will continue to observe overnight due to recent LA with stent placement. Review of Systems Review of Systems: 12 systems were reviewed and are negativ e except for as per HPI. All systems reviewed & are unremarkable except as noted in HPI and below Exam Narrative: General: Ill-appearing, +[place] HEENT: normocephalic, atraumatic. Mucous membranes moist. EOMI, PERRLA, bilateral sclera anicteric, no conjunctival injection. Neck supple without JVD, lymphadenopathy, or bruit. Respiratory: clear bilaterally. No rales/rhonic/wheezes. Chest: Non-reproducible chest pain, R Cardiovascular: Regular rate, afib rhythm. No murmurs, rubs, or clicks. PMI is nondisplaced, capillary refill less than 3 second. Abdomen: Soft, round, no pulsatile masses, nondistended and nontender. No rebound, no guarding. Bowel sounds present to all four quadrants. No high pitch or tinkling sounds, resonant to percussion. Extremities: No cyanosis, clubbing, or edema present. Pulses are palpable 2/2. Active ROM to all four extremities. Neuro: Alert and orientated x 4. PERRLA. Cranial nerves 2-12 intact without focal deficit. Skin: Warm, dry, and intact, without rash, erythema, or lesion. Psych: pleasant, cooperative, normal speech, normal affect, no hallucinations, no dysarthia Const: General: no acute distress and uncomfortable HENMT: Face/Nose/Sinus: Normal nares present Mouth: Yes moist mucous membranes Eyes: General: appearance normal, both eyes and all related structures Sclera: sclerae normal Neck: Neck: supple Resp: Effort & Inspection: normal respiratory effort Auscultation: clear to auscultation bilaterally Cardio: Rate: tachycardic Rhythm: regular rhythm GI: Inspection: non-distended Auscultation: normal bowel sounds Other: No TTP Skin: General skin exam: normal color and no rashes or lesions noted Neuro: Speech: normal speech Motor exam (neuro): Normal motor muscle tone present throughout Sensory Exam: normal sensation Extrem: General: normal to inspection Psych: Mental Status: mental status grossly normal Affect: normal affect Objective Data Vital Signs Vital Signs: Vital Signs - 24 hr 03/31/25 13:47 03/31/25 16:00 03/31/25 20:00 Temperature 97.6 F Pulse Rate 101 H 105 H 53 L Respiratory Rate 17 Blood Pressure 101/64 121/64 Pulse Oximetry 98 Oxygen Delivery 03/31/25 20:00 03/31/25 20:00 03/31/25 20:20 Temperature Pulse Rate 108 H 55 L Respiratory Rate Blood Pressure 93/67 L Pulse Oximetry Oxygen Delivery Room Air 03/31/25 20:54 04/01/25 00:00 04/01/25 04:00 Temperature 99.6 F Pulse Rate 105 H 114 H 113 H Respiratory Rate 20 Blood Pressure 105/66 Pulse Oximetry 98 Oxygen Delivery 04/01/25 05:49 04/01/25 08:04 04/01/25 08:40 Temperature 98.3 F 97.4 F L Pulse Rate 110 H 110 H 109 H Respiratory Rate 18 18 Blood Pressure 123/78 121/72 Pulse Oximetry 94 97 Oxygen Delivery 04/01/25 08:43 04/01/25 08:49 04/01/25 08:50 Temperature 97.3 F L 97.9 F Pulse Rate 114 H 114 H Respiratory Rate 19 21 H Blood Pressure 124/78 106/63 Pulse Oximetry 95 100 Oxygen Delivery Room Air 04/01/25 08:57 04/01/25 09:00 Temperature Pulse Rate 113 H 110 H Respiratory Rate Blood Pressure Pulse Oximetry Oxygen Delivery Intake/Output Intake/Output: Intake & Output 03/29/25 03/30/25 03/31/25 04/01/25 23:59 23:59 23:59 23:59 Intake Total 3230.0 700 1630 640 Balance 3230.0 700 1630 640 Meds/Results Medications: Active Medications Generic Name Dose Route Start Last Admin Trade Name Freq PRN Reason Stop Dose Admin Acetaminophen 500 mg 03/26/25 17:28 Acetaminophen 500 Mg Tablet PO Q6H PRN fever or pain Calcium Carbonate 200 mg 04/01/25 09:20 04/01/25 09:40 Calcium Carbonate (Tums) 500 Mg (200 Mg Elemental) PO 200 mg Q6H PRN Administration Indigestion Clopidogrel Bisulfate 75 mg 03/28/25 09:00 04/01/25 08:56 Clopidogrel Bisulfate 75 Mg Tablet PO 75 mg QAM DOYLE Administration Dextrose 12.5 gm 03/26/25 17:29 Dextrose 50% 25 Gm/50 Ml Syringe IV PUSH PRN PRN Hypoglycemia Protocol Empagliflozin 10 mg 03/27/25 09:00 04/01/25 08:56 Empagliflozin 10 Mg Tablet PO 10 mg DAILY DOYLE Administration Glucagon 1 mg 03/26/25 17:29 Glucagon For Inj 1 Mg Vial IM PRN PRN Hypoglycemia Protocol Glucose 15 gm 03/26/25 17:29 Glucose Oral Gel 15 Gm Of Glucse In 37.5 Gm Tube PO PRN PRN Hypoglycemia Protocol Dextrose 1,000 mls @ 100 mls/hr 03/26/25 17:29 Dextrose 5% 1,000 Ml IVPB PRN PRN Hypoglycemia Protocol Ceftriaxone Sodium 1 gm/ 50 mls @ 100 mls/hr 03/29/25 09:00 04/01/25 08:56 Sodium Chloride IVPB 100 mls/hr Q24H DOYLE Administration Insulin Aspart 2 - 5 units 03/26/25 17:30 04/01/25 12:16 Insulin Aspart (*Bkc) 100 Units/Ml SUB-Q 2 units TIDWM DOYLE Administration Protocol Insulin Aspart 1 - 2 units 03/27/25 21:00 03/31/25 20:40 Insulin Aspart (*Bkc) 100 Units/Ml SUB-Q 1 units HS DOYLE Administration Protocol Magnesium Oxide 400 mg 03/27/25 09:00 04/01/25 08:56 Magnesium Oxide 400 Mg Tablet PO 400 mg DAILY DOYLE Administration Metoprolol Succinate 25 mg 03/27/25 09:00 04/01/25 08:57 Metoprolol Succinate Ext Rel 25 Mg Tabcr PO 25 mg QAM DOYLE Administration Ondansetron HCl 4 mg 03/29/25 03:12 03/29/25 03:23 Ondansetron Inj 4 Mg/2 Ml Vial IV PUSH 4 mg Q4H PRN Administration Nausea And Vomiting Rosuvastatin Calcium 20 mg 03/26/25 21:00 03/31/25 20:40 Rosuvastatin 20 Mg Tablet PO 20 mg QHS DOYLE Administration Sacubitril/Valsartan 1 tab 03/27/25 09:00 03/28/25 21:19 Sacubitril/Valsartan 24-26 Mg Tablet PO 1 tab On Hold: 03/29/25 08:54 Q12HR DOYLE Administration Venlafaxine HCl 150 mg 03/27/25 09:00 04/01/25 08:56 Venlafaxine Hcl Xr 75 Mg Cap.Er.24h PO 150 mg DAILY DOYLE Administration Radiology Results: ITS Impressions Abdomen/Pelvis CT 03/26/25 13:24 IMPRESSION: 1. . No acute intra-abdominal/pelvic process. 2. Diverticulosis. Chest X-Ray 03/31/25 08:25 Impression: No acute cardiopulmonary abnormality. Labs Labs: Laboratory Results - last 24 hr 03/31/25 03/31/25 04/01/25 16:20 20:33 05:07 WBC 14.0 H RBC 4.13 L Hgb 12.8 Hct 38.9 MCV 94.2 MCH 31.0 MCHC 32.9 RDW 13.2 Plt Count 232 MPV 10.5 H Immature Gran % (Auto) 0.7 H Neut % (Auto) 75.1 H Lymph % (Auto) 11.2 L Brule % (Auto) 11.9 H Eos % (Auto) 0.9 Baso % (Auto) 0.2 Lymph # (Auto) 1.57 Brule # (Auto) 1.7 H Eos # (Auto) 0.1 Baso # (Auto) 0.0 Abs Immat Gran (auto) 0.10 H Absolute Neuts (auto) 10.5 H Absolute Nucleated RBC 0.000 Nucleated RBC % 0.0 Sodium 134 L Potassium 3.3 L Chloride 104 Carbon Dioxide 22 Anion Gap 8 BUN 8 D Creatinine 0.80 Estim Creat Clear Calc 50 Estimated GFR > 60 Glucose 150 H POC Capillary Glucose 144 H 218 H Calcium 8.6 Total Bilirubin 0.7 AST 21 ALT 12 Alkaline Phosphatase 82 Troponin I 0.039 H* Total Protein 6.6 Albumin 3.7 04/01/25 04/01/25 04/01/25 07:25 08:08 11:33 WBC RBC Hgb Hct MCV MCH MCHC RDW Plt Count MPV Immature Gran % (Auto) Neut % (Auto) Lymph % (Auto) Brule % (Auto) Eos % (Auto) Baso % (Auto) Lymph # (Auto) Brule # (Auto) Eos # (Auto) Baso # (Auto) Abs Immat Gran (auto) Absolute Neuts (auto) Absolute Nucleated RBC Nucleated RBC % Sodium Potassium Chloride Carbon Dioxide Anion Gap BUN Creatinine Estim Creat Clear Calc Estimated GFR Glucose POC Capillary Glucose 159 H 218 H Calcium Total Bilirubin AST ALT Alkaline Phosphatase Troponin I 0.036 H* Total Protein Albumin Quality VTE Prophylaxis VTE prophylaxis: mechanical ordered
[2025-04-01] MEDS: ONDANSETRON INJ 4 MG/2 ML VIAL IV PUSH (15:58)
[2025-04-01] MEDS: ROSUVASTATIN 20 MG TABLET PO (20:04)
[2025-04-02] VITALS (15 sets, daily range): BP systolic 96–128; BP diastolic 48–76; PULSE 110–120; RESP 18–22; TEMP 36.1–36.9; O2SAT 93–96
--- NOTE | 2025-04-02 | ECHO_ITS ---
Patient Info Name: Ailyn Neff Age: 79 years : 1945 Gender: Female Ht: 64 in Wt: 323 lbs BSA: 2.67 m2 HR: 114 bpm BP: 96 / 66 mmHg Technical Quality: Good Exam Date: 04/02/2025 2:51 PM Patient Status: I Admit Date: 03/28/2025 Exam Type: CA echo dop color flow w con Complete two-dimensional, color flow and Doppler transthoracic echocardiogram is performed with contrast to opacify the left ventricle and to improve the deliniation of the left ventricle endocardial borders. Staff Referring Physician: Chiara Ramos Ice Handler: Laurence Watson Attending Provider: Bjorn Quinn MD Contrast/Agitated Saline Contrast/Ag. Saline: Definity Amount: 2.00 ml Summary 1. Definity contrast administered improved wall motion interpretation. 2. Left ventricular chamber dimension is severely enlarged. 3. Left ventricular systolic function is severely reduced, estimated at 20-25. 4. The left ventricular diastolic function is abnormal. 5. E/e' 15 is elevated. 6. Right ventricular chamber dimension is mildly enlarged. 7. Right ventricular systolic function is moderately reduced and with abnormal TAPSE 2.0 cm. 8. Left atrial chamber dimension is moderately enlarged. 9. There is mild aortic valve sclerosis. 10. There is severe mitral valve regurgitation. 11. There is mild tricuspid valve regurgitation. 12. Moderate pulmonary hypertension, estimated pulmonary arterial systolic pressure is 57 mmHg. 13. There is trace pulmonic regurgitation. 14. Dilated inferior vena cava with >50% collapse upon inspiration consistent with elevated right atrial pressure, 10 mmHg. Left Ventricle E/e' 15 is elevated. Left ventricular chamber dimension is severely enlarged. Left ventricular systolic function is severely reduced, estimated at 20-25. The left ventricular diastolic function is abnormal. Definity contrast administered improved wall motion interpretation. Right Ventricle Right ventricular chamber dimension is mildly enlarged. Right ventricular systolic function is moderately reduced and with abnormal TAPSE 2.0 cm. Left Atria Left atrial chamber dimension is moderately enlarged. Right Atria Right atrial chamber dimension is normal. Aortic Valve The aortic valve is trileaflet. There is mild aortic valve sclerosis. There is no aortic valve stenosis. There is no aortic valve regurgitation. Pulmonic Valve There is trace pulmonic regurgitation. Mitral Valve There is no mitral valve stenosis. There is severe mitral valve regurgitation. Tricuspid Valve There is mild tricuspid valve regurgitation. Moderate pulmonary hypertension, estimated pulmonary arterial systolic pressure is 57 mmHg. Pericardium/Pleural There is no pericardial effusion. Inferior Vena Cava Dilated inferior vena cava with >50% collapse upon inspiration consistent with elevated right atrial pressure, 10 mmHg. Aorta The aortic root size at the sinus of Valsalva is normal. Left Ventricular Outflow Tract Name Value Normal LVOT 2D LVOT Diameter 2.0 cm LVOT Doppler LVOT Peak Velocity 106 cm/s LVOT Peak Gradient 5 mmHg LVOT Mean Gradient 3 mmHg LVOT VTI 17 cm LVOT Stroke Volume 51 ml LVOT CO 5.8 l/min LVOT CI 2.2 l/min/m2 Pulmonic Valve Name Value Normal RVOT Doppler RVOT Peak Velocity 57 cm/s RVOT Peak Gradient 1 mmHg PV Doppler PV Peak Velocity 68 cm/s PV Peak Gradient 2 mmHg Mitral Valve Name Value Normal MV Regurgitation Doppler MR Peak Gradient 104 mmHg MV Diastolic Function MV E Peak Velocity 115 cm/s MV A Peak Velocity 26 cm/s MV E/A 4.5 MV Decel Time (PW) 164 ms MV Annular TDI MV E/e' (Septal) 22.8 MV E/e' (Lateral) 12.3 MV E/e' (Average) 17.6 Tricuspid Valve Name Value Normal TV Regurgitation Doppler TR Peak Velocity 342 cm/s TR Peak Gradient 47 mmHg Estimated PAP/RSVP RA Pressure 10 mmHg <=5 PA Systolic Pressure 57 mmHg <36 RV Systolic Pressure 57 mmHg <36 Aortic Valve Name Value Normal AV Doppler AV Peak Velocity 115 cm/s AV Peak Gradient 5 mmHg AV Area (Cont Eq Misael) 2.8 cm2 AV DI (Misael) 0.92 AV Regurgitation 2D LVOT Area 3.0 cm2 Ventricles Name Value Normal LV Dimensions 2D/MM IVS Diastolic Thickness (2D) 0.9 cm 0.6-1.0 LVID Diastole (2D) 5.4 cm 3.8-5.2 LVIW Diastolic Thickness (2D) 0.8 cm 0.6-0.9 LVID Systole (2D) 4.8 cm 2.2-3.5 LVOT Diameter 2.0 cm LV Mass (2D Cubed) 168.82 g 67.00-162.00 LV Mass Index (2D Cubed) 63 g/m2 43-95 Relative Wall Thickness (2D) 0.31 <=0.42 LV Fractional Shortening/Ejection Fraction 2D/MM LV Fractional Shortening (2D) 11 % 27-45 LV EF (2D Teichholz) 24 % LV Diastolic Volume (4C MOD) 168 ml LV EF (4C MOD) 33 % LV Diastolic Volume (2C MOD) 129 ml LV EF (2C MOD) 20 % LV Diastolic Volume (BP MOD) 148 ml 46-106 LV Diastolic Volume Index (BP MOD) 56 ml/m2 29-61 LV Systolic Volume (BP MOD) 109 ml 14-42 LV Systolic Volume Index (BP MOD) 41 ml/m2 8-24 LV EF (BP MOD) 26 % 54-74 LV Diastolic Length (4C) 8.5 cm LV Systolic Length (4C) 8.1 cm LV Stroke Volume (4C MOD) 56 ml Atria Name Value Normal LA Dimensions LA Volume (4C A-L) 58 ml LA Volume (BP A-L) 61 ml RA Dimensions RA Systolic [place] Length (4C) 4.5 cm 2.2-2.8 RA Area (4C) 11.6 cm2 <=18.0 Report Signatures
[2025-04-02] MEDS: CALCIUM CARBONATE (TUMS) 500 MG (200 MG ELEMENTAL) PO ×4 (04:51→23:11)
[2025-04-02 05:47] LABS: Hematocrit 38.6 % (37.0-47.0); Hemoglobin 12.6 g/dL (12.0-15.0); Immature Granulocyte Percent A 0.6 % (0-0.5); Lymphocytes Absolute Auto 1.57 K/mm3 (0.9-3.2); Mean Corpuscular HGB Conc 32.6 g/dl (32-36); Mean Corpuscular Hemoglobin 30.9 pg (26-34); Mean Corpuscular Volume 94.6 fl (80-100); Nucleated Red Blood Cells Absolute Auto 0.000 K/mm3 (0.0-0.012); Nucleated Red Blood Cells Perc 0.0 % (0.0-0.2); Platelet Count Result 226 k/mm3 (150-375); Red Blood Count 4.08 M/mm3 (4.2-5.4); White Blood Count 13.9 K/mm3 (4.5-10.0)
[2025-04-02 06:39] LABS: Alanine Aminotransferase 11 U/L (6-35); Albumin Level 3.7 g/dL (3.5-5.1); Alkaline Phosphatase 85 U/L (38-126); Anion Gap 8 mmol/L (4-12); Aspartate Amino Transferase 25 U/L (14-36); Bilirubin,Total 0.7 mg/dL (0.2-1.3); Blood Urea Nitrogen 11 mg/dL (7-17); Calcium 9.1 mg/dL (8.4-10.2); Carbon Dioxide 23 mmol/L (22-30); Chloride 103 mmol/L (98-107); Estimated CRCL calculation 49 ml/min; Estimated Glomerular Filt Rate > 60; Glucose 158 mg/dL (65-110); Potassium 3.8 mmol/L (3.4-5.0); Sodium 134 mmol/L (137-145); Total Protein 6.9 g/dL (6.3-8.2)
[2025-04-02] MEDS: INSULIN ASPART (*BKC) 100 UNITS/ML SUB-Q ×4 (08:18→20:25)
[2025-04-02] MEDS: METOPROLOL SUCCINATE EXT REL 25 MG TABCR PO (08:23)
[2025-04-02] MEDS: CLOPIDOGREL BISULFATE 75 MG TABLET PO (08:23)
[2025-04-02] MEDS: VENLAFAXINE HCL XR 75 MG CAP.ER.24H 150 MG PO (08:23)
[2025-04-02] MEDS: EMPAGLIFLOZIN 10 MG TABLET PO (08:23)
[2025-04-02] MEDS: MAGNESIUM OXIDE 400 MG TABLET PO (08:24)
--- NOTE | 2025-04-02 15:24 | PCNWS ---
Weekly nutritional screen. Patient is tolerating current [facility] diet with Ensure Clear TID with adequate intake. No weight loss reported. No nutritional needs at this time.
[2025-04-02] MEDS: PERFLUTREN LIPID MICROSPHERES 1.5 ML VIAL DILUTED TO 10 ML TOTAL VOLUME IV PUSH (15:25)
--- NOTE | 2025-04-02 15:25 | IVDEFINITY ---
Prior to administration of IV Definity the patient was educated on the risks and benefits of the imaging enhancing agent including potential adverse side effects. The patient verbalized understanding. Allergies were verified. No exclusion criteria were identified and at least one of the following inclusion criteria were met: 1) physician request, 2) patient technically difficult to image (per the [place] [employer] of Echocardiography guidelines of two or more segments not discernable within the apical view), or 3) questionable left ventricular function. ?
[2025-04-02] MEDS: ROSUVASTATIN 20 MG TABLET PO (20:24)
[2025-04-03 00:05] VITALS: PULSE 108
[2025-04-03 04:01] VITALS: PULSE 104
[2025-04-03 05:35] VITALS: BP 94/52; PULSE 103; RESP 16; TEMP 36.6; O2SAT 93
[2025-04-03] MEDS: CALCIUM CARBONATE (TUMS) 500 MG (200 MG ELEMENTAL) PO ×2 (05:42→12:26)
[2025-04-03 06:31] LABS: Hematocrit 39.0 % (37.0-47.0); Hemoglobin 12.6 g/dL (12.0-15.0); Immature Granulocyte Percent A 0.4 % (0-0.5); Lymphocytes Absolute Auto 1.66 K/mm3 (0.9-3.2); Mean Corpuscular HGB Conc 32.3 g/dl (32-36); Mean Corpuscular Hemoglobin 31.0 pg (26-34); Mean Corpuscular Volume 95.8 fl (80-100); Nucleated Red Blood Cells Absolute Auto 0.000 K/mm3 (0.0-0.012); Nucleated Red Blood Cells Perc 0.0 % (0.0-0.2); Platelet Count Result 238 k/mm3 (150-375); Red Blood Count 4.07 M/mm3 (4.2-5.4); White Blood Count 10.2 K/mm3 (4.5-10.0)
[2025-04-03 06:48] LABS: Alanine Aminotransferase 13 U/L (6-35); Albumin Level 3.6 g/dL (3.5-5.1); Alkaline Phosphatase 81 U/L (38-126); Anion Gap 8 mmol/L (4-12); Aspartate Amino Transferase 27 U/L (14-36); Bilirubin,Total 0.5 mg/dL (0.2-1.3); Blood Urea Nitrogen 17 mg/dL (7-17); Calcium 9.0 mg/dL (8.4-10.2); Carbon Dioxide 27 mmol/L (22-30); Chloride 101 mmol/L (98-107); Estimated CRCL calculation 48 ml/min; Estimated Glomerular Filt Rate > 60; Glucose 191 mg/dL (65-110); Potassium 3.6 mmol/L (3.4-5.0); Sodium 136 mmol/L (137-145); Total Protein 6.7 g/dL (6.3-8.2)
[2025-04-03 06:57] LABS: NT Pro B Type Natriuretic Pept 3410 pg/mL (19.9-100)
[2025-04-03 08:00] VITALS: PULSE 103
[2025-04-03 08:13] LABS: CRP 15.9 mg/dL (<1.0)
[2025-04-03] MEDS: CLOPIDOGREL BISULFATE 75 MG TABLET PO (09:24)
[2025-04-03] MEDS: VENLAFAXINE HCL XR 75 MG CAP.ER.24H 150 MG PO (09:24)
[2025-04-03] MEDS: MAGNESIUM OXIDE 400 MG TABLET PO (09:24)
[2025-04-03] MEDS: EMPAGLIFLOZIN 10 MG TABLET PO (09:24)
[2025-04-03] MEDS: METOPROLOL SUCCINATE EXT REL 25 MG TABCR PO (09:24)
--- NOTE | 2025-04-03 09:29 | P.DS_ITS ---
DS: Admitting Diagnosis Discharge Date 04/03/2025 Admitting Diagnosis GI bleed DS: Discharge Diagnosis Discharge Diagnosis (1) Ischemic cardiomyopathy: Code(s): I25.5 - Ischemic cardiomyopathy Status: Chronic Assessment and Plan: 01/28 OH with stent to the LAD. Echo on 01/20/2025: EF 25-30. 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 -patient refused LifeVest at discharge. -continue Entresto, metoprolol, Jardiance -monitor BP as patient tends to run low Pt reports alleviation of all CP today. Pt comfortable with discharge. Continue to hold Entresto due to low BP until sees mathematics education professor outpt. Reports that she has a life vest at home and she refuses to wear it. However, she is agreeable to a pumping station engineer upon discharge via cards recs. (2) Rectal bleed: Code(s): K62.5 - Hemorrhage of anus and rectum Status: Acute Assessment and Plan: New onset lower GI bleed. Patient recently started on Eliquis and Plavix post OH in January. No obvious etiology on abdominal pelvic CT. Rectal exam in ED positive for dark red blood. -GI consult; scope on Saturday -serial H&H. Stable Transfuse for hemoglobin less than 7 or symptomatic - diet NPO -continue to hold Eliquis Okay for Plavix for GI Colonoscopy shows multiple like diverticuli, no colitis, There was a single 3 mm polyp observed in the transverse colon. A cold snare polypectomy was performed. The polyp was completely excised Denies any bloody stool, last 04/01 AM. (3) Hypotension: Code(s): I95.9 - Hypotension, unspecified Status: Acute Assessment and Plan: Hemoglobin stable DC IV fluids due CHF Hold Entresto until f/u with cards (4) Bacteria in urine: Code(s): R82.71 - Bacteriuria Status: Acute Assessment and Plan: UA with 3+ glucose, 1+ leukocyte Estrace, WBC 51-100, 1+ bacteria. Patient has a history of frequent UTIs. Continues to deny UTI symptoms, no leukocytosis, no fever. 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 DS: Summary Hospital Course Reason for hospitalization: GI bleed Hospital Course: The patient is an 79-year-old female with a complex cardiac history, including recent STEMI (01/2025) with LAD stent placement, ischemic cardiomyopathy (EF 25- 30%), paroxysmal atrial fibrillation, hypertension, type 2 diabetes mellitus (on insulin), and prior TIA, who presented via EMS with new-onset dark red rectal bleeding and mild abdominal discomfort. She was on dual antithrombotic therapy (Eliquis and Plavix) following her recent OH. On admission, she was hemodynamically stable but hypotensive (BP 91/56), with an initial hemoglobin of 14.6 g/dL. Physical exam was notable for guaiac-positive dark red blood on rectal exam, but her abdomen was soft and nontender. Initial labs showed stable renal function and no leukocytosis; urinalysis was notable for asymptomatic bacteriuria. CT abdomen/pelvis revealed diverticulosis without acute findings. Eliquis was held on admission due to active GI bleeding, while Plavix was continued given her recent coronary stent. Serial hemoglobins showed a gradual decline but remained above transfusion thresholds, and she remained hemodynamically stable without evidence of ongoing significant bleeding. GI and cardiology were consulted. The patient underwent colonoscopy after appropriate cardiac clearance, which revealed multiple left-sided diverticula (none actively bleeding), a single 3 mm transverse colon polyp (removed via cold snare), and small internal hemorrhoids. No source of active or recent bleeding was identified, and there was no evidence of colitis or AVMs. The GI team concluded the bleeding was likely diverticular or perianal in origin, and no further endoscopic intervention was required. During her stay, the patient experienced intermittent right-sided chest pain, which was non-cardiac in character and not associated with EKG changes, troponin elevation, new echo abnormals, or Chest CTA abnormality; symptoms were attributed to anxiety/GERD? and managed supportively having subsided upon discharge. She remained in sinus rhythm on telemetry, and there were no episodes of heart failure or arrhythmia. Her blood pressure remained low, so Entresto was held, and IV fluids were discontinued to avoid volume overload. Her diabetes was managed with her home regimen and a low-dose correction scale, with no episodes of severe hypoglycemia. Asymptomatic bacteriuria was monitored; urine culture was negative, and antibiotics were discontinued. The patient?s hemoglobin stabilized, and there was no further evidence of GI bleeding. She tolerated diet advancement and was able to resume most home medications, except for Entresto (to be restarted after outpatient cardiology follow-up) and Eliquis (held for 5 days post-procedure, to be resumed on 04/05/25 per GI and cardiology recommendations). She was discharged in stable condition to assisted living, with instructions for close follow-up with cardiology (including event monitor placement and electrophysiology referral for possible ICD), primary care, and GI as an outpatient. She was advised to monitor for recurrent bleeding, chest pain, or other concerning symptoms and to return to the ED if these occurred. Status at Discharge Overall status at discharge: patient is progressing back to baseline Time Spent with Patient Time attestation: Total time spent providing and/or coordinating discharge services: 60 Exam Narrative: General: Ill-appearing, +[place] HEENT: normocephalic, atraumatic. Mucous membranes moist. EOMI, PERRLA, bilateral sclera anicteric, no conjunctival injection. Neck supple without JVD, lymphadenopathy, or bruit. Respiratory: clear bilaterally. No rales/rhonic/wheezes. Chest: Non-reproducible chest pain, R Cardiovascular: Regular rate, afib rhythm. No murmurs, rubs, or clicks. PMI is nondisplaced, capillary refill less than 3 second. Abdomen: Soft, round, no pulsatile masses, nondistended and nontender. No rebound, no guarding. Bowel sounds present to all four quadrants. No high pitch or tinkling sounds, resonant to percussion. Extremities: No cyanosis, clubbing, or edema present. Pulses are palpable 2/2. Active ROM to all four extremities. Neuro: Alert and orientated x 4. PERRLA. Cranial nerves 2-12 intact without focal deficit. Skin: Warm, dry, and intact, without rash, erythema, or lesion. Psych: pleasant, cooperative, normal speech, normal affect, no hallucinations, no dysarthia Const: General: no acute distress and uncomfortable HENMT: Face/Nose/Sinus: Normal nares present Mouth: Yes moist mucous membranes Eyes: General: appearance normal, both eyes and all related structures Sclera: sclerae normal Neck: Neck: supple Resp: Effort & Inspection: normal respiratory effort Auscultation: clear to auscultation bilaterally Cardio: Rate: tachycardic Rhythm: regular rhythm GI: Inspection: non-distended Auscultation: normal bowel sounds Other: No TTP Skin: General skin exam: normal color and no rashes or lesions noted Neuro: Speech: normal speech Motor exam (neuro): Normal motor muscle tone present throughout Sensory Exam: normal sensation Extrem: General: normal to inspection Psych: Mental Status: mental status grossly normal Affect: normal affect DS: Data Data Completed and Pending Completed studies during hospitalization: Pending at discharge 03/30/25 13:25 Surgical [PTH] Routine Labs on day of discharge: Labs from last 24 hours 04/03/25 04/03/25 04/02/25 07:33 06:16 19:34 WBC 10.2 H RBC 4.07 L Hgb 12.6 Hct 39.0 MCV 95.8 MCH 31.0 MCHC 32.3 RDW 13.5 Plt Count 238 MPV 10.2 Immature Gran % (Auto) 0.4 Neut % (Auto) 66.9 Lymph % (Auto) 16.2 L [place] % (Auto) 14.1 H Eos % (Auto) 2.0 Baso % (Auto) 0.4 Lymph # (Auto) 1.66 [place] # (Auto) 1.4 H Eos # (Auto) 0.2 Baso # (Auto) 0.0 Abs Immat Gran (auto) 0.04 H Absolute Neuts (auto) 6.8 H Absolute Nucleated RBC 0.000 Nucleated RBC % 0.0 ESR 79 H Sodium 136 L Potassium 3.6 Chloride 101 Carbon Dioxide 27 Anion Gap 8 BUN 17 Creatinine 0.84 Estim Creat Clear Calc 48 Estimated GFR > 60 Glucose 191 H POC Capillary Glucose 192 H 313 H Calcium 9.0 Total Bilirubin 0.5 AST 27 ALT 13 Alkaline Phosphatase 81 C-Reactive Protein 15.9 H NT-Pro-B Natriuret Pep 3410 H Total Protein 6.7 Albumin 3.6 04/02/25 04/02/25 16:25 11:29 WBC RBC Hgb Hct MCV MCH MCHC RDW Plt Count MPV Immature Gran % (Auto) Neut % (Auto) Lymph % (Auto) [place] % (Auto) Eos % (Auto) Baso % (Auto) Lymph # (Auto) [place] # (Auto) Eos # (Auto) Baso # (Auto) Abs Immat Gran (auto) Absolute Neuts (auto) Absolute Nucleated RBC Nucleated RBC % ESR Sodium Potassium Chloride Carbon Dioxide Anion Gap BUN Creatinine Estim Creat Clear Calc Estimated GFR Glucose POC Capillary Glucose 273 H 248 H Calcium Total Bilirubin AST ALT Alkaline Phosphatase C-Reactive Protein NT-Pro-B Natriuret Pep Total Protein Albumin Discharge Plan Discharge Attending physician on discharge: Jesus Slade Consulting providers: Rosalind Darden; Chiara Ramos Discharging Clinician: Chiara Ramos Anticipated Discharge Date/Time: 04/03/25 13:00 Patient Disposition: NH Correction/Asst Living Activity: as tolerated Diet: heart healthy Discharge Instructions: 1. Continue all medication (including Plavix) except for your Eliquis, restart this on 04/05/2025. Also continue to hold your Entresto until you follow-up with your mathematics education professor due to your low blood pressure. 2. Continue to follow-up with your mathematics education professor team (Dr. Rios), especially given your recent stent placement. I have also attached [facility]ology services contact information if in need (Dr. Guzman). They are recommending a heart monitor to be worn (this is not the life vest) after you get discharged. This has been ordered for you and you will need to come back on Saturday (04/05) to the mathematics education professor office here at [facility] to have it applied. This is very important! The mathematics education professor team will also be referring you to an electrophysiology mathematics education professor to discuss cardioverter-defibrillator placement for the future. 3. If your R sided chest pain with inspiration were to return, try to use ibuprofen (Advil) or acetaminophen (Tylenol) to see if this helps. Also on your follow-up mathematics education professor appt, be sure to mention this pain. Continue to check your blood pressure and blood sugar at home if applicable. Keep your scheduled appts with your primary care provider and any specialist that you may see. Return to the emergency department if you develop sudden shortness of breath, chest pain, a fever of greater than 101.5, or nausea, vomiting, abd pain, bloody stools. or diarrhea that does not go away. Follow-up with your primary care provider within 1-2 weeks, they will want to be updated on your inpatient stay in the hospital. Thank you for choosing [facility] for your healthcare needs. Patient Instructions: Antibiotic Form, Apixaban (By mouth), Heart Failure (GEN), Chest Pain (GEN), Rectal Bleeding (GEN), Insertion of a Heart Failure Monitoring System (GEN) Patient Language: [place] Stand Alone Forms: General Discharge Information Follow-up/Referrals: Maged Guzman DO [Physician, Cardiology] - 2 Weeks Omer Rios MD [Physician, Interventional Cardiology] - 1 Week Hellen Jarquin PA-C [Primary Care Provider, Family Practice] - 2 Weeks Discharge Medications: Continued venlafaxine 150 mg capsule,extended release 24hr 150 mg PO DAILY Qty: 90 1RF (DME) pen needle, diabetic [Chante Pen Needle] 32 gauge x 5/32 needle See Rx Instructions .Route Qty: 400 1RF Rx Instructions: Use to administer insulin 4 times a day Jardiance 10 mg Tablet 10 mg PO DAILY Qty: 30 1RF rosuvastatin 20 mg Tablet 20 mg PO QHS Qty: 30 1RF acetaminophen 500 mg tablet 500 mg PO Q6H PRN (Reason: fever or pain) (DME) FreeStyle James 3 [place] Misc See Rx Instructions .Route Qty: 1 0RF Rx Instructions: As directed Tradjenta 5 mg tablet 5 mg PO QAM Qty: 90 1RF magnesium oxide 400 mg (241.3 mg magnesium) tablet 400 mg PO DAILY Qty: 90 0RF Gvoke HypoPen 2-Pack 1 mg/0.2 mL auto-injector 1 mg subcut ONCE PRN (Reason: hypoglycemia) Qty: 0.4 1RF Rx Instructions: may repeat once after 15 minutes if no response glucose [Dex4 Glucose] 4 gram tablet,chewable 16 g PO Q15M PRN (Reason: hypoglycemia) Qty: 60 1RF Rx Instructions: until symptoms of low blood sugar are controlled metoprolol succinate [Toprol XL] 25 mg tablet extended release 24 hr 25 mg PO QAM Qty: 30 1RF Rx Instructions: increased by cardiology 02/12/25 insulin glargine [Basaglar KwikPen U-100 Insulin] 100 unit/mL (3 mL) insulin pen 16 unit subcut QPM clopidogrel 75 mg tablet 75 mg PO DAILY Qty: 30 0RF (DME) FreeStyle James 3 Plus Sensor Device See Rx Instructions .Route Qty: 2 0RF Rx Instructions: change every 15 days Held sacubitril-valsartan [Entresto] 24-26 mg tablet 1 tablet PO BID Hold Instructions: Resume on 04/09/25. Until follow-up with cardiology Eliquis 5 mg tablet 5 mg PO BID Qty: 180 0RF Hold Instructions: Resume on 04/05/25. Resume on 04/05/2025 per GI and cardiology teams. Other Ambulatory Orders: [place] cardiac event monitor (Routine) Timeframe: 30 Days Facility: [facility] - Location: [facility] Cardiology Ordered By: Chiara Ramos Date of admission: 03/28/25 15:05 Primary Care Provider: Hellen Jarquin Admitting Provider: Bjorn Quinn Attending physician on admission: Bjorn Quinn Condition: Stable Quality VTE Prophylaxis VTE prophylaxis: mechanical ordered Hospitalist MIPS Heart Failure (Exclusion) Patient has history of Heart Transplant or Left Ventricular Assistive Device?: No IF YES, STOP HERE Heart Failure (Qualifier) Patient has current or prior documentation of LVEF less than or equal to 40%, or mod/servere depressed LVSF?: Yes IF NO, STOP HERE If Yes, Heart Failure (Qualifier) Patient was prescribed or already taking an Angiotensin-Converting Enzyme (JOHN) Inhibitor, or Antiotensin Receptor Dell (ARB): Yes Patient was prescribed or already taking bisoprolol, carvedilol, or sustained release metoprolol succinate: Yes
[2025-04-03] MEDS: INSULIN ASPART (*BKC) 100 UNITS/ML SUB-Q (12:26)
== END 2025-04-03 14:14 | DRG 379 ==
LOC: ANHED 13:44 → ANH3MEDSUR 14:58
PROVIDERS: Internal Medicine; Internal Medicine Gastroenterology; Internal Medicine Interventional Cardiology; Nurse Practitioner Adult Health; Nurse Practitioner Gerontology; Admitting Provider Internal Medicine; Emergency Provider Emergency Medicine; PCP Physician Assistant Medical
PROC: 0DJD8ZZ Inspection of Lower Intestinal Tract, Via Natural or Artificial Opening Endoscopic (ICD-10-PCS; CPT 45378; principal; 2025-03-30 13:30)
DX: K62.5 Hemorrhage of anus and rectum (principal); K57.31 Diverticulosis of large intestine without perforation or abscess with bleeding; K63.5 Polyp of colon; K64.8 Other hemorrhoids; R82.71 Bacteriuria; I25.5 Ischemic cardiomyopathy; F41.8 Other specified anxiety disorders; I48.0 Paroxysmal atrial fibrillation; E11.9 Type 2 diabetes mellitus without complications; K21.9 Gastro-esophageal reflux disease without esophagitis; I44.1 Atrioventricular block, second degree; E78.5 Hyperlipidemia, unspecified; E87.6 Hypokalemia; I11.0 Hypertensive heart disease with heart failure; I50.9 Heart failure, unspecified; R07.89 Other chest pain; I25.2 Old myocardial infarction; Z95.5 Presence of coronary angioplasty implant and graft; Z79.01 Long term (current) use of anticoagulants; Z79.02 Long term (current) use of antithrombotics/antiplatelets; Z86.73 Personal history of transient ischemic attack (TIA), and cerebral infarction without residual deficits; Z87.891 Personal history of nicotine dependence; E66.9 Obesity, unspecified; Z68.30 Body mass index [BMI] 30.0-30.9, adult; I95.9 Hypotension, unspecified; Z79.4 Long term (current) use of insulin
CPT/HCPCS: 36415; 71045; 71046; 71275; 74177; 80048; 80053; 81001; 82948; 83605; 83690; 83880; 84484; 85014; 85018; 85025; 85027; 85610; 85652; 85730; 86140; 86850; 86900; 86901; 87086; 88305; 93005; 99285; A9270; C8929; G0378; J0696; J1815; J2003; J2405; J2704; J7030; J7120; Q9957; Q9967

== ENCOUNTER 2025-04-14 15:20 | Inpatient (IN) | payer MEDICARE, MEDICAID, SELFPAY ==
[2025-04-14] VITALS (9 sets, daily range): BP systolic 106–127; BP diastolic 65–81; PULSE 100–110; RESP 18–24; TEMP 36.8–37.1; O2SAT 93–100
--- NOTE | ~2025-04-14 | XR_ITS ---
EXAMINATION: XR chest 2V DATE: 04/14/2025 17:29 INDICATION: Short of breath. TECHNIQUE: Frontal and lateral views of the chest were obtained. COMPARISON: Chest x-ray 03/31/2025 FINDINGS: Significant cardiomegaly and atherosclerotic aorta. Small left pleural effusion and congestion of left lung base. Minimal blunting of right costophrenic angle. IMPRESSION: 1. Significant cardiomegaly and atherosclerotic aorta. 2. Congestive changes of lung bases with small left pleural effusion and blunting of right costophrenic angle. Reviewed, dictated and finalized at location [facility]. [facility] IMPRESSION: 1. Significant cardiomegaly and atherosclerotic aorta. 2. Congestive changes of lung bases with small left pleural effusion and blunti ng of right costophrenic angle.
--- NOTE | ~2025-04-14 | XR_ITS ---
Examination: XR chest 1V portable Clinical History: sob Comparison: X-ray 04/14/2025 Technique: Portable AP Findings: Unchanged cardiomegaly. Mild interstitial markings. No acute bony abnormality. IMPRESSION: 1. Mild interstitial pulmonary edema persists. Reviewed, dictated and finalized at location [facility]. [facility] [employer] [facility]
--- NOTE | 2025-04-14 16:40 | ECG_ITS ---
Test Date: 2025-04-14 16:56:46 Measurements Intervals [place] Rate: 104 P: 45 UT: 178 QRS: -9 QRSD: 94 T: 43 QT: 381 QTc: 503 Interpretive Statements SINUS TACHYCARDIA LOW QRS VOLTAGE - DIFFUSE LEADS ANTEROSEPTAL INFARCT, AGE INDETERMINATE BORDERLINE ST-T WAVE ABNORMALITY- DIFFUSE LEDS BASELINE WANDER- I, III, V1-V6 ABNORMAL ECG Compared to ECG 04/01/2025 05:52:16 NO SIGNIFICANT CHANGE Electronically Signed On 04-14-2025 19:55:09 GROOMING ASSISTANT by Maged Guzman D.O.
[2025-04-14 17:04] LABS: Hematocrit 38.1 % (37.0-47.0); Hemoglobin 12.1 g/dL (12.0-15.0); Immature Granulocyte Percent A 0.5 % (0-0.5); Lymphocytes Absolute Auto 2.23 K/mm3 (0.9-3.2); Mean Corpuscular HGB Conc 31.8 g/dl (32-36); Mean Corpuscular Hemoglobin 31.2 pg (26-34); Mean Corpuscular Volume 98.2 fl (80-100); Nucleated Red Blood Cells Absolute Auto 0.000 K/mm3 (0.0-0.012); Nucleated Red Blood Cells Perc 0.0 % (0.0-0.2); Platelet Count Result 317 k/mm3 (150-375); Red Blood Count 3.88 M/mm3 (4.2-5.4); White Blood Count 10.2 K/mm3 (4.5-10.0)
[2025-04-14 17:15] LABS: Alanine Aminotransferase 20 U/L (6-35); Albumin Level 3.9 g/dL (3.5-5.1); Alkaline Phosphatase 80 U/L (38-126); Anion Gap 8 mmol/L (4-12); Aspartate Amino Transferase 33 U/L (14-36); Bilirubin,Total 0.6 mg/dL (0.2-1.3); Blood Urea Nitrogen 18 mg/dL (7-17); Calcium 9.3 mg/dL (8.4-10.2); Carbon Dioxide 23 mmol/L (22-30); Chloride 108 mmol/L (98-107); Estimated CRCL calculation 41 ml/min; Estimated Glomerular Filt Rate 55; Glucose 146 mg/dL (65-110); Potassium 4.4 mmol/L (3.4-5.0); Sodium 139 mmol/L (137-145); Total Protein 7.0 g/dL (6.3-8.2)
[2025-04-14 17:27] LABS: NT Pro B Type Natriuretic Pept 7330 pg/mL (19.9-100); Troponin I 0.029 ng/mL (0.000-0.034)
--- NOTE | 2025-04-14 17:35 | ED_ITS ---
HPI - General Adult General Chief complaint: Upper Respiratory Infection Stated complaint: non prod. cough x 2 weeks Time Seen by Provider: 04/14/25 16:30 History of Present Illness HPI narrative: Patient is a 79-year-old female who presents ER with shortness of breath. She began having orthopnea yesterday. No significant exertional dyspnea. History of STEMI with ejection fraction 20-25%. She is not wearing a LifeVest the was recommended. She is scheduled to have a defibrillator placed in the future. No chest pain. No fevers or chills or sweats. No new leg swelling. Related Data Home Medications ?Medication ?Instructions ?Recorded ?Confirmed ?Last Taken ?Type acetaminophen 500 mg tablet 500 mg PO Q6H PRN fever or pain 07/03/24 04/14/25 01/12/25 History sacubitril 24 mg-valsartan 26 mg 1 tablet PO BID 03/2604/14/25 03/26/25 History tablet (Entresto) Held on 04/03/25. Instructions: Resume on 04/09/25. Until follow-up with cardiology Allergies Allergy/AdvReac Type Severity Reaction Status Date / Time Penicillins Allergy Mild Swelling Verified 04/14/25 11:27 pentazocine Allergy Mild Unknown Verified 04/14/25 11:27 albuterol Allergy syncope Verified 04/14/25 11:27 aspirin Allergy Swelling Verified 04/14/25 11:27 codeine Allergy Numbness Verified 04/14/25 11:27 Sulfa (Sulfonamide Allergy Unknown Verified 04/14/25 11:27 Antibiotics) ibuprofen AdvReac GI upset Verified 04/14/25 11:27 Review of Systems 2 Review of Systems: All systems reviewed & are unremarkable except as noted in HPI and below Constitutional: Constitutional: Reports no additional constitutional complaints ENT: Reports system reviewed and no additional complaints, except as documented Cardiovascular: Cardiovascular: Reports no additional cardiovascular complaints Respiratory: Respiratory: Reports no additional respiratory complaints Musculoskeletal: Musculoskeletal: Reports no additional musculoskeletal complaints [facility] Past Medical History Medical History 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 Colon, diverticulosis Haemophilus infection Hypotension Anxiety and depression TIA (transient ischemic attack) 2012 HTN (hypertension) Hypomagnesemia Screening for colon cancer Mini stroke (~2012) Chronic headaches Acid reflux Diabetes Arthritis Surgical History Surgical History History of hand surgery trigger finger -right 3rd finger x3 History of bladder suspension procedure History of arthroscopy of left knee H/O: hysterectomy (~1979) Family History Family History Father Hypertension Mother Breast cancer Social History Social History Social History: Patient declined SDOH 02/12/24 Smoking status: Former smoker Additional smoking assessment comments: quit smoking about 40 years ago Alcohol intake: current Drinks per week: 1 Alcohol use details: OCC. Substance use: never Substance use type: does not use Lack of Transportation: No Lack of Food: Never True Current Housing: I Have Housing Concerned About Future Housing: No Difficulty Paying Gas/Electric Bills: No Difficulty Paying for Meds: No Currently Unemployed: No Education: High School Diploma/GED Difficulty w/ Childcare or Family Care: No Living arrangements: alone Occupation/Education: retired Gender identity (if verbalized by the patient): Female Spiritual care concerns: No Agree to blood products: Yes Exam 2 Narrative: GENERAL: Well-appearing, well-nourished, and in no acute distress. HEAD: Normocephalic, atraumatic. ENT: Mucous membranes moist. CHEST: Clear to auscultation. No respiratory distress. HEART: Regular rate and rhythm. Normal peripheral pulses. ABDOMEN: Soft, nontender, nondistended. EXTREMITIES: Normal range of motion. No edema. SKIN: Warm, dry, no rash. NEURO: Alert and oriented x3. PSYCH: Normal mood and affect. Course Course Emergency Course: Discussed with cardiology on-call. Admit to hospitalist service for diuresis. No hypoxia. Patient is stable. Vital Signs Vital signs: Vital Signs Temperature 98.8 F 04/14/25 15:22 Pulse Rate 110 H 04/14/25 15:22 Respiratory Rate 20 04/14/25 15:22 Blood Pressure 106/65 04/14/25 15:22 Pulse Oximetry 99 04/14/25 15:22 Oxygen Delivery Room Air 04/14/25 15:22 Temperature 98.8 F 04/14/25 15:22 Pulse Rate 109 H 04/14/25 18:09 Respiratory Rate 19 04/14/25 18:09 Blood Pressure 116/76 04/14/25 18:09 Pulse Oximetry 98 04/14/25 18:09 Oxygen Delivery Room Air 04/14/25 16:31 [facility] Differential Diagnosis Differential Diagnosis: Pneumonia, congestive heart failure, COPD, pneumonia, ACS Lab Data [facility] Lab Attestation statement: I personally reviewed the patient's lab results. 04/14/25 16:58 04/14/25 16:58 Labs: Lab Results 04/14/25 Range/Units 16:58 WBC 10.2 H (4.5-10.0) K/mm3 RBC 3.88 L (4.2-5.4) M/mm3 Hgb 12.1 (12.0-15.0) g/dL Hct 38.1 (37.0-47.0) % MCV 98.2 (80-100) fl MCH 31.2 (26-34) pg MCHC 31.8 L (32-36) g/dl RDW 14.3 (11.5-14.5) % Plt Count 317 (150-375) k/mm3 MPV 10.2 (7.4-10.4) fl Immature Gran % (Auto) 0.5 (0-0.5) % Neut % (Auto) 64.4 (45.5-73.1) % Lymph % (Auto) 22.0 (18.3-44.2) % [place] % (Auto) 9.8 H (2.6-8.5) % Eos % (Auto) 2.8 (0-4.4) % Baso % (Auto) 0.5 (0.2-1.2) % Lymph # (Auto) 2.23 (0.9-3.2) K/mm3 [place] # (Auto) 1.0 H (0.1-0.6) K/mm3 Eos # (Auto) 0.3 (0-0.3) K/mm3 Baso # (Auto) 0.1 (0.0-0.1) K/mm3 Abs Immat Gran (auto) 0.05 H (0.00-0.031) K/mm3 Absolute Neuts (auto) 6.6 (1.3-6.7) K/mm3 Absolute Nucleated RBC 0.000 (0.0-0.012) K/mm3 Nucleated RBC % 0.0 (0.0-0.2) % PT Pending INR Pending APTT Pending Sodium 139 (137-145) mmol/L Potassium 4.4 (3.4-5.0) mmol/L Chloride 108 H (98-107) mmol/L Carbon Dioxide 23 (22-30) mmol/L Anion Gap 8 (4-12) mmol/L BUN 18 H (7-17) mg/dL Creatinine 0.97 (0.7-1.0) mg/dL Estim Creat Clear Calc 41 ml/min Estimated GFR 55 L (59 - ) Glucose 146 H (65-110) mg/dL Calcium 9.3 (8.4-10.2) mg/dL Total Bilirubin 0.6 (0.2-1.3) mg/dL AST 33 (14-36) U/L ALT 20 (6-35) U/L Alkaline Phosphatase 80 (38-126) U/L Troponin I 0.029 (0.000-0.034) ng/mL NT-Pro-B Natriuret Pep 7330 H (19.9-100) pg/mL Total Protein 7.0 (6.3-8.2) g/dL Albumin 3.9 (3.5-5.1) g/dL Imaging Data Attestation: I personally reviewed and interpreted this imaging study as follows: Radiologist's impression: ITS Impressions Chest X-Ray 04/14/25 17:31 IMPRESSION: 1. Significant cardiomegaly and atherosclerotic aorta. 2. Congestive changes of lung bases with small left pleural effusion and blunting of right costophrenic angle. ECG Data EKG #1: ECG completion date: 04/14/25 ECG completion time: 16:56 tachycardia (104), sinus rhythm, non-specific ST changes, normal QRS, normal QT and NL axis Discharge Plan Discharge Clinical Impression: Congestive heart failure Patient Disposition: Still a Patient Condition: Stable
[2025-04-14] MEDS: FUROSEMIDE INJ 40 MG/4 ML VIAL IV PUSH ×2 (18:14→21:31)
[2025-04-14 20:08] LABS: INR 1.5; Prothrombin Time 17.8 Seconds (11.1-14.7)
[2025-04-14 20:09] LABS: Partial Thromboplastin Time 39.8 Seconds (22.3-36.8)
--- OUTSIDE RECORDS SUMMARY | 2025-04-14 20:21 | XMS_ITS | Encounter Summary ---
Author Organization [facility] Healthcare Address [address] [place] [address] Care Team Providers Care Chip Loft Worker Name Role Phone Chidi Reis MD Unavailable [phone] Hellen Jarquin Primary Care Provider [phone] Encounter Details Date Type Department Care Team (Late st Contact Info) Description 04/09/2025 Orders Only [facility] Medical Group Cardiology [address] [facility] [address] [place] [phone] Valorie Anderson MD [address] [facility] [address] [place] [address] Social History Tobacco Use Types Packs/Day Years Used Date Smoking Tobacco: Never Smokeless Tobacco: Never Alcohol Use Standard Drinks/Week Comments Yes 0 (1 standard drink = 0.6 oz pur e alcohol) socially Comments No Sex and Gender Information Value Date Recorded Sex Assigned at Not on file Legal Sex Female 1:43 AM BELT BRANDER Gender Identity Not on file Sexual Orientation Not on file documented as of this encounter Plan of Treatment Not on file documented as of this encounter Procedures Procedure Name Priority Date/Time Associated Diagnosis Comments CARDIOLOGY DOCUMENT SCAN Routine 03/31/2025 3:14 PM BELT BRANDER CARDIOLOGY DOCUMENT SCAN Routine 03/30/2025 3:13 PM BELT BRANDER CARDIOLOGY DOCUMENT SCAN Routine 03/29/2025 3:10 PM BELT BRANDER documented in this encounter Results * Cardiology Document Scan (03/31/2025 3:14 PM BELT BRANDER) Anatomical Region Laterality Modality Other us Valorie Anderson MD CV CARDIAC SERVICES PROCEDU RES Final Result * Cardiology Document Scan (03/30/2025 3:13 PM BELT BRANDER) Anatomical Region Laterality Modality Other us Valorie Anderson MD CV CARDIAC SERVICES PROCEDU RES Final Result * Cardiology Document Scan (03/29/2025 3:10 PM BELT BRANDER) Anatomical Region Laterality Modality Other us Valorie Anderson MD CV CARDIAC SERVICES PROCEDU RES Final Result documented in this encounter Visit Diagnoses Not on filedocumented in this encounter Care Teams Chip Loft Worker Relationship Specialty Start Date End Date Hellen Jarquin PA [address] [place] [address] PCP - General Family Practice 02/12/25 Chidi Reis MD Internal Medicine 03/26/24 documented as of this encounter
--- OUTSIDE RECORDS SUMMARY | 2025-04-14 20:21 | XMS_ITS | Clinical Summary ---
Author Organization [facility] Address [address] [place] [address] Care Team Providers Care Drivability Technician Name Role Phone Hellen Jarquin PA-C Primary Care Provider [phone] Allergies Active Allergy Reactions Criticality Noted Date [...] diabetes mellitus wit hout complication, unspecified whether residential insulin use 03/25/2023 03/25/2023 Diabetes mellitus due [...] from your doctor or pharmacy? Never 04/16/2024 [facility] Utilities Answer Date Recorded In the past 12 months has th e electric, [id number], oil, or water [employer] threatened to shut off services in your [...] week 04/16/2024 How often do you attend [facility] or rastafarian services? More than 4 times per year 04/16/2024 Do you belong to any clubs o r organizations such as orthodox groups, unions, fraternal or athletic groups, or [...] Recorded Patient Health Questionnaire-2 Score 0 08/04/2024 [facility] - Occupational Stress Questionnaire Answer Date Recorded [...] place to sleep or slept in a usp (including now)? No 03/24/2023 Housing Stability Vital [...] were you homeless or living in a usp (including now)? No 06/26/2024 Comments No Sex and Gender Information Value Date Recorded Sex Assigned at Female 05/31/2024 8:39 PM RUBBING BED OPERATOR Legal Sex Female 10:55 PM RUBBING BED OPERATOR Gender Identity Female 05/31/2024 8:39 PM RUBBING BED OPERATOR Sexual Orientation Not on file Last Filed Vital Signs Vital Sign Reading Time Taken Comments Blood Pressure 123/79 07/01/2024 11:10 AM RUBBING BED OPERATOR Pulse 119 07/01/2024 11:10 AM RUBBING BED OPERATOR nurse notified Temperature 36.3 C (97.3 F) 07/01/2024 11:10 AM RUBBING BED OPERATOR Respiratory Rate 18 07/01/2024 11:1 0 AM RUBBING BED OPERATOR Oxygen Saturation 93% 07/01/2024 11: 10 AM RUBBING BED OPERATOR Inhaled Oxygen Concentration - - Weight 75.5 kg (166 lb 7.2 oz) 07/01/2024 4:55 AM RUBBING BED OPERATOR Height 160 cm (5' 3) 06/26/2024 3:39 PM RUBBING BED OPERATOR Body Mass Index 29.48 06/26/2024 3:39 PM RUBBING BED OPERATOR Plan of Treatment Health Maintenance Due Date [...] Td or Tdap) 05/31/2034 05/31/2024 PHQ-2 (Physician [place]) Completed 08/04/2024 Hepatitis A Vaccines Aged Out [...] and discharge planning Lifestyle No Helen Santos, CROZE MACHINE OPERATORwelder production line arc Devices Implanted Type Area Manager Quality Systems Device Identifier Shelf Expiration Date Model / Serial / Lot 1.5 6 Hole Plate Implanted:Qty: 1 on 06/09/2024 by Vishnu Olsen DO at [facility] Right: Hand DEPUY SYNTHES .003 / / Description:Implanted to fou rth metacarpal 1.5 Cortex Screw 11mm Implanted:Qty: 2 on 06/09/2024 by Vishnu Olsen DO at [facility] Right: Hand DEPU[employer] SYNTHES .111 / / Description:Implanted to fou rth metacarpal 1.5 Cortex Screw 12mm Implanted:Qty: 1 on 06/09/2024 by Vishnu Olsen DO at [facility] Right: Hand DEPU[employer] SYNTHES .112 / / Description:Implanted to fou rth metacarpal 1.5 Cortex Screw 10mm Implanted:Qty: 1 on 06/09/2024 by Vishnu Olsen DO at [facility] Right: Hand DEPU[employer] SYNTHES .110 / / Description:Implanted to fou rth metacarpal 1.5 Cortex Screw 9mm Implanted:Qty: 1 on 06/09/2024 by Vishnu Olsen DO at [facility] Right: Hand DEPU[employer] SYNTHES .109 / / Description:Implanted to fou rth metacarpal 1.5 Locking Screw 14mm Implanted:Qty: 1 on 06/09/2024 by Vishnu Olsen DO at [facility] Right: Hand DEPU[employer] SYNTHES .014 / / Description:Implanted to fou rth metacarpal Explanted Type Area Manager Quality Systems Device Identifier Shelf Expiration Date Model / Serial / Lot 1.5 Cortex Screw 12mm Explanted:Qty: 1 on 06/09/2024 by Vishnu Olsen DO at [facility] Right: Hand DEPUY SYNTHES .112 / / Description:Fourth metacarpa l Procedures Procedure Name Priority Date/Time Associated Diagnosis Comments HEMOGLOBIN, GLYCOSYLATED STAT 05/03/2024 2:00 PM RUBBING BED OPERATOR LIPID PANEL Routine 01/26/2024 4:30 AM CDT from Last 3 Months or Most Recently Relevant to Health Maintenance Results * (ABNORMAL) HEMOGLOBIN, GLYCOSYLATED (05/03/2024 2:00 PM RUBBING BED OPERATOR) HGB A1C 10.0(H) <5.7 % 05/03/2024 2:56 PM RUBBING BED OPERATOR [facility] Comment: INCREASED RISK OF DIABETES <5.7% NON-DIABETES 5.7-6.4% INCREASED RISK FOR FUTURE DIABETES > OR = 6.5 CONSISTENT WITH DIABETES STANDARDS OF MEDICAL CARE IN DIABETES-2010 DIABETES CARE, 33(SUPP 1): S1-S61,2010 ESTIMATED AVG GLUCOSE 240 mg/dL 05/03/2024 2:56 PM RUBBING BED OPERATOR [facility] 05/03/2024 2:00 PM RUBBING BED OPERATOR us Deepa Stein NP LABORATORY Final Resul t [facility] [address] [place] [address], * LIPID PANEL (01/26/2024 4:30 AM CDT) CHOLESTEROL 133 <200.0 MG/DL 01/26/2024 5:46 AM CDT [facility] TRIGLYCERIDES 122 <150 MG/DL 01/26/2024 5:46 AM CDT [facility] HDL 51 >40.0 MG/DL 01/26/2024 5:46 AM CDT [facility] LDL (CALCULATED) 58 <100 MG/DL 01/26/20 5:46 AM CDT [facility] NON HDL CHOLESTEROL 82 <130 MG/DL 01/25 5:46 AM CDT [facility] CHOL/HDL RATIO 2.6 0.0 - 4.5 01/26/2024 5:46 AM CDT [facility] VLDL CALCULATION 24 5 - 55 MG/DL 01/26/2024 5:46 AM CDT [facility] LIPID INTERPRETATION 01/26/2024 5:46 AM CDT [facility] Comment: NIH CONCENSUS REPORT RECOMMENDATIONS: ADULT CHILD LOW RISK: CHOLESTEROL <200 <170 TRIGLYCERIDE <150 --- HDL >=60 --- LDL <100 <110 BORDERLINE: CHOLESTEROL 200-239 170-199 TRIGLYCERIDE 150-199 --- HDL 40-59 --- LDL 100-159 110-129 HIGH RISK: CHOLESTEROL >=240 >=200 TRIGLYCERIDE >=200 --- HDL <40 --- LDL >=160 >=130 01/26/2024 4:30 AM CDT Kathi Royal MD LABORATORY Final Result [facility] [address] [place] [address], from Last 3 Months or Most Recently Relevant to Health Maintenance Insurance [facility] MEDICARE MEDICAID Advance Directives Documents on File Type Date Recorded Patient Therapeutic Riding Instructor Expl anation DNR (Do Not Resuscitate) Documentation [...] 6:01 PM 04/16/2024 1:44 PM Care Teams Drivability Technician Relationship Specialty Start Date End Date Hellen Jarquin PA-C [address] [place] [address] [address] [place] [address] PCP - General PHYSICIAN LIBRARY SERVICES DEAN 08/18/22
--- OUTSIDE RECORDS SUMMARY | 2025-04-14 20:21 | XMS_ITS | Clinical Summary ---
Author Organization [facility] Care Team Providers Care Mechanical Engineering Advisor Name Role Phone Unavailable Primary Care Provider [...]
--- OUTSIDE RECORDS SUMMARY | 2025-04-14 20:21 | XMS_ITS | Encounter Summary ---
Author Organization [facility] Healthcare Address [address] [place] [address] Care Team Providers Care Assistant Community Director Name Role Phone Chidi Reis MD Unavailable [phone] Hellen Jarquin Primary Care Provider [phone] Encounter Details Date Type Department Care Team (Late st Contact Info) Description 04/07/2025 Telephone [facility] Medical Group Cardiology [address] [facility] [address] [place] [address] Omer Rios MD [address] [place] [address] Social History Tobacco Use Types Packs/Day Years Used Date Smoking Tobacco: Never Smokeless Tobacco: Never Alcohol Use Standard Drinks/Week Comments Yes 0 (1 standard drink = 0.6 oz pur e alcohol) socially Comments No Sex and Gender Information Value Date Recorded Sex Assigned at Not on file Legal Sex Female 1:43 AM RESIDENTIAL DIRECT SUPPORT PROFESSIONAL Gender Identity Not on file Sexual Orientation Not on file documented as of this encounter Miscellaneous Notes * Telephone Encounter - Deepa De Jesus RN - 04/07/2025 3:23 PM RESIDENTIAL DIRECT SUPPORT PROFESSIONAL Spoke with pts daughter, reviewed AH discharge summary. Pt was instructed to hold Entresto until seen by cardiology due to low bp readings. Daughter verbalizes understanding. Also ordered was a 30 day heart monitor and a referral to EP. Advised that per discharge instructions they advised that bothof these are advised. Daughter verbalizes understanding and appreciative of return call. DENTIAL DIRECT SUPPORT PROFESSIONAL * Telephone Encounter - Deepa De Jesus RN - 04/07/2025 2:55 PM RESIDENTIAL DIRECT SUPPORT PROFESSIONAL LM on requesting return call to discuss. DENTIAL DIRECT SUPPORT PROFESSIONAL * Telephone Encounter - Shirley Johnson - 04/07/2025 1:14 PM CST La states pt took entresto for 2-3 days then was admitted to . She is unsure if pt was gived Entresto during her hospital stay on 03/26-04/03. Wants to know if she needs to re start taking entresto again prior to lab work. Also states while pt was at they recommenced a heart monitor so they instructed her to contact Dr. Guzman's office and they told her they would mail it. La wants to knowif the heart monitor is even necessary since we referred her to an EP at [facility] to discuss ICD. Requesting call back to discuss. Contact: DENTIAL DIRECT SUPPORT PROFESSIONAL documented in this encounter Plan of Treatment Not on file documented as of this encounter Visit Diagnoses Not on filedocumented in this encounter Care Teams Assistant Community Director Relationship Specialty Start Date End Date Hellen Jarquin PA [address] [place] [address] PCP - General Family Practice 02/12/25 Chidi Reis MD Internal Medicine 03/26/24 documented as of this encounter
--- OUTSIDE RECORDS SUMMARY | 2025-04-14 20:21 | XMS_ITS | Clinical Summary ---
Author Organization [facility] Medical Office Building B Address [address] [place] [address] Care Team Providers Care Pharmacy Salesperson Name Role Phone Chidi Reis MD Unavailable Hellen Jarquin Primary Care Provider [phone] Allergies Active Allergy Reactions Criticality Noted Date [...] Encounters Date Type Department Care Team Description 04/09/2025 Orders Only [facility] Cardiology [address] [facility] [address] [place] [phone] Valorie Anderson MD 04/07/2025 Telephone [facility] Cardiology [address] [place] [address] Omer Rios MD 03/31/2025 Telephone [facility] Cardiology [address] [place] [phone] Drea Mccrary NP 03/26/2025 Telephone [place] [address] [place] [phone] Omer Rios MD Hypotension; Rectal Bleeding 03/16/2025 9:15 AM YARN MERCERIZER OPERATOR HELPER Ancillary Procedure [place] [address] [place] [phone] Cardiomyopathy, ischemic 03/16/2025 Results Follow-Up [place] [address] [place] [phone] Judith Díaz NP Transthoracic Echo (TTE) Limited/Followup 02/12/2025 10:00 AM CDT Office Visit [place] [address] [place] [phone] Judith Díaz NP 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; Cardiomyopathy, ischemic; Presence of stent in coronary artery; Paroxysmal atrial fibrillation (HCC); Chronic anticoagulation 02/12/2025 Telephone [place] [address] [place] [phone] Judith Díaz NP 02/09/2025 Orders Only [place] [address] [place] [phone] Drea Mccrary NP 02/01/2025 Orders Only [facility] Cardiology [address] [place] [address] [place] [phone] Valorie Anderson MD 01/28/2025 Orders Only [facility] Cardiology [address] [place] [address] [place] [phone] Drea Mccrary NP 01/26/2025 Orders Only [facility] Cardiology [address] [place] [address] [place] [address] [phone] Pantera Muller MD 01/22/2025 Telephone [facility] Cardiology [address] [facility] [address] [place] [phone] Drea Mccrary NP 01/20/2025 Orders Only [facility] Medical Group Cardiology [address] [place] [phone] Valorie Anderson MD 01/18/2025 Orders Only [facility] Cardiology [address] [place] [phone] Omer Rios MD 01/18/2025 Telephone [facility] Cardiology [address] [place] [address] Omer Rios MD 01/14/2025 Orders Only [facility] Information Management [address] [place] [phone] Scanning, Provider from Last 3 Months Surgical History Surgery Date Site/Laterality Comments OTHER SURGICAL HISTORY surgery for aci9d reflux OTHER SURGICAL HISTORY exc. 6 rt. breast lumps REDUCTION MAMMOPLASTY 2008 Breast reduction HYSTERECTOMY Hysterectomy BACK SURGERY Back [...] 2010 COPD (chronic obstructive pu lmonary disease) 2016 STEMI (ST elevation myocardi al infarction) ([facility]) 01/2025 Family History Medical History Relation Name [...] on file Legal Sex Female 1:43 AM YARN MERCERIZER OPERATOR HELPER Gender Identity Not on file [...] Diagnosis Comments CARDIOLOGY DOCUMENT SCAN Routine 025 3:14 PM YARN MERCERIZER OPERATOR HELPER CARDIOLOGY DOCUMENT SCAN Routine 025 3:13 PM YARN MERCERIZER OPERATOR HELPER CARDIOLOGY DOCUMENT SCAN Routine 025 3:10 PM YARN MERCERIZER OPERATOR HELPER TRANSTHORACIC ECHO (TTE) LIMITED/FOLLOW UP W LTD DOPPLER/CF WO CONTRAST Routine 03/16/2025 9:57 AM YARN MERCERIZER OPERATOR HELPER Cardiomyopathy, ischemic ELECTROCARDIOGRAM REPORT Routine 025 3:00 [...] 3 Months Results * Cardiology Document Scan (03/31/2025 3:14 PM YARN MERCERIZER OPERATOR HELPER) Anatomical Region Laterality Modality Other us Valorie Anderson MD CV CARDIAC SERVICES PROCEDU RES Final Result * Cardiology Document Scan (03/30/2025 3:13 PM YARN MERCERIZER OPERATOR HELPER) Anatomical Region Laterality Modality Other us Valorie Anderson MD CV CARDIAC SERVICES PROCEDU RES Final Result * Cardiology Document Scan (03/29/2025 3:10 PM YARN MERCERIZER OPERATOR HELPER) Anatomical Region Laterality Modality Other us Valorie Anderson MD CV CARDIAC SERVICES PROCEDU RES Final Result * TRANSTHORACIC ECHO (TTE) LIMITED/FOLLOW UP W LTD DOPPLER/CF WO CONTRAST (03/16/2025 9:57 AM YARN MERCERIZER OPERATOR HELPER) Estimated EF 25-30 % CONS SCIMAGE EF Mod BP 33 % CONS SCIMAGE Anatomical Region Laterality Modality Ultrasound 03/16/2025 9:24 AM YARN MERCERIZER OPERATOR HELPER Narrative 03/16/2025 1:24 PM YARN MERCERIZER OPERATOR HELPER [facility] Medical Group Cardiology [address] [facility] [address], [place] [address] [address] [facility] [address], [place] [address] P:[phone] P:[phone] Echocardiographic Report Patient Name: CHRISTOPHE BECKHAM F : 1945 Study Date: 03/16/2025 9:24:54 AM Sex: F Loss Prevention Research Engineer: Roya Dawkins)(CT), [facility] Location: [place] Ref Provider: JUDITH DÍAZ Height(Cm): 163 BSA: [...] FINDINGS: Interpretation Site: Exam was interpreted at [facility]. Left Ventricle: Mild concentric left ventricular hypertrophy. [...] By: Adam Brown MD 03/16/2025 1:23:58 PM YARN MERCERIZER OPERATOR HELPER Procedure Note Adam Brown MD - 03/16/2025 [facility] Medical Group Cardiology [address] [facility] [address], [place] [address] [address] [facility] [address], [place] [address] P:[phone] P:[phone] Echocardiographic Report Patient Name: CHRISTOPHE BECKHAM F : 1945 Study Date: 03/16/2025 9:24:54 AM Sex: F Loss Prevention Research Engineer: Roya Dawkins)(CT), [facility] Location: [facility] Provider: JUDITH DÍAZ Height(Cm): 163 BSA: 1.91 [...] FINDINGS: Interpretation Site: Exam was interpreted at [facility]. Left Ventricle: Mild concentric left ventricular hypertrophy. [...] By: Adam Brown MD 03/16/2025 1:23:58 PM YARN MERCERIZER OPERATOR HELPER Judith Díaz NP CV ECHO PROCEDURES Final Result * Electrocardiogram Report (02/12/2025 3:00 PM CDT) Judith Díaz NP ECG ORDERABLES Final Res ult * Cardiology Document Scan (01/30/2025 12:54 PM CDT) Anatomical Region Laterality Modality Other us Jarad Young MD CV CARDIAC SERVICES PROC EDURES Final Result * Cardiology Document Scan (01/29/2025 12:52 PM CDT) Anatomical Region Laterality Modality Other us Valorie Anderson MD CV CARDIAC SERVICES PROCEDU RES Final Result * Cardiology Document Scan (01/27/2025 11:04 AM CDT) Anatomical Region Laterality Modality Other us Drea Delaney Ventimiglia LAUNDRY PRESS OPERATOR CV CARDIAC SERVICE S PROCEDURES Final Result * Cardiology Document Scan (01/26/2025 1:20 PM CDT) Anatomical Region Laterality Modality Other us Drea Delaney Ventimiglia LAUNDRY PRESS OPERATOR CV CARDIAC SERVICE S PROCEDURES Final Result [...] Anatomical Region Laterality Modality Other us Drea Delaney Ventimiglia LAUNDRY PRESS OPERATOR CV CARDIAC SERVICE S PROCEDURES Final Result * Cardiology Document Scan (01/21/2025 1:15 PM CDT) Anatomical Region Laterality Modality Other us Drea Delaney Ventimiglia LAUNDRY PRESS OPERATOR CV CARDIAC SERVICE S PROCEDURES Final Result * Cardiology Document Scan (01/20/2025 1:12 PM CDT) Anatomical Region Laterality Modality Other us Drea Delaney Ventimiglia LAUNDRY PRESS OPERATOR CV CARDIAC SERVICE S PROCEDURES Final Result * Cardiology Document Scan (01/19/2025 1:05 PM CDT) Anatomical Region Laterality Modality Other us Drea Mccrary LAUNDRY PRESS OPERATOR CV CARDIAC SERVICE S PROCEDURES Final Result [...] PM CDT) Anatomical Region Laterality Modality Other Omer Rios MD CV CARDIAC SERVICES PROCEDURES F inal Result * Cardiology Document Scan (01/14/2025) Anatomical Region Laterality Modality Other Provider Scanning CV CARDIAC SERVICES PROCEDURES Edited Result - Final from Last 3 Months Insurance MEDICARE [employer] MEDICARE SUPPLEMENT INSURANCE [facility] MEDICARE ADVANTAGE IDPA [facility] MEDICARE ADVANTAGE IDPA Advance Directives For more information, please contact: [phone] * Full Code (Latest Code Status on File) Date Activated Date Inactivated Comments 02/09/2023 6:04 AM Care Teams Pharmacy Salesperson Relationship Specialty Start Date End Date Hellen Jarquin PA [address] [place] [phone] PCP - General Family Practice 02/12/25 Chidi Reis MD Internal Medicine 03/26/24
--- OUTSIDE RECORDS SUMMARY | 2025-04-14 20:21 | XMS_ITS | Encounter Summary ---
Author Organization [facility] Address [facility] [place] [address] Care Team Providers Care Premium Auditor Name Role Phone Hellen Jarquin PA-C Primary Care Provider [phone] Encounter Details Date Type Department Care Team (Late st Contact Info) Description 03/25/2024 [employer] Message Enc [facility] Medical Group Multispecialty [address] [phone] [employer], [facility] Provider referral Social History Tobacco Use Types [...] from your doctor or pharmacy? Never 01/30/2024 [facility] Utilities Answer Date Recorded In the past [...] week 01/30/2024 How often do you attend [facility] or hinduism services? More than 4 times per year 01/30/2024 Do you belong to any clubs o r organizations such as restorationist groups, unions, fraternal or athletic groups, or [...] Recorded Patient Health Questionnaire-2 Score 0 02/13/2024 [facility] - Occupational Stress [...] place to sleep or slept in a skilled nursing (including now)? No 03/24/2023 Housing Stability Vital [...] were you homeless or living in a skilled nursing (including now)? No 03/05/2024 Comments No Sex and Gender Information Value Date Recorded Sex Assigned at Female 05/31/2024 8:39 PM SHEET METAL WORKER SUPERVISOR Legal Sex Female 10:55 PM SHEET METAL WORKER SUPERVISOR Gender Identity Female 05/31/2024 8:39 PM SHEET METAL WORKER SUPERVISOR Sexual Orientation Not on file documented [...] and discharge planning Lifestyle No Helen Santos, BMX RIDER documented as of this encounter Visit Diagnoses Not on filedocumented in this encounter Additional Health Concerns Infection Onset Date Last Indicated Resolved Time C. difficile 04/13/2024 04/13/2024 06/09/2024 9:04 AM SHEET METAL WORKER SUPERVISOR C. difficile 06/27/2024 06/27/2024 12/24/2024 7:55 PM CDT documented as of this encounter Care Teams Premium Auditor Relationship Specialty Start Date End Date Hellen Jarquin PA-C [address] [place] [address] PCP - General PHYSICIAN DITCHING MACHINE OPERATOR 08/18/22 documented as of this encounter
--- OUTSIDE RECORDS SUMMARY | 2025-04-14 20:21 | XMS_ITS | Encounter Summary ---
Author Organization [facility] Address [address] [place] [address] Care Team Providers Care Shaker Out Name Role Phone Hellen Jarquin PA-C Primary Care Provider [phone] Encounter Details Date Type Department Care Team (Late st Contact Info) Description 02/01/2023 Therapy Plan [facility] [address] [place], [place] [id number] Wade Altamirano MD [address] [place] [address] Social History Tobacco Use Types Packs/Day [...] How often do you attend chur or sikhism services? 1 to 4 times per year 09/16/2022 Do you belong to any clubs o r organizations such as zoroastrianism groups, unions, fraternal or athletic groups, or [...] Recorded Patient Health Questionnaire-2 Score 0 01/25/2023 [facility] of Occupat ional Health - Occupational Stress [...] slept in a long-term (including now)? No 11/16/2022 Comments No Sex and Gender Information Value Date Recorded Sex Assigned at Female 05/31/2024 8:39 PM TEMPLATE FITTER Legal Sex Female 10:55 PM TEMPLATE FITTER Gender Identity Female 05/31/2024 8:39 PM TEMPLATE FITTER Sexual Orientation Not on file documented as [...] Status No Risk Indicated 02/04/2023 8:03 PM DIANAT Mary Velazquez RN Active * [place] Suicide Severity Rating Scale (Screener/Recent Self-Report) Question [...] Comment:Isolation period completed 11/15/2022 02/05/202303/25 7:41 AM TEMPLATE FITTER COVID-19 Rule Out 02/04/2023 02/04/2023 02/04/2023 8:49 PM CDT COVID-19 Rule Out 02/05/2023 02/05/2023 02/05/2023 7:41 PM CDT COVID-19 Rule Out 03/24/2023 03/24/2023 03/24/2023 3:57 PM TEMPLATE FITTER C. difficile 05/03/2023 05/03/2023 01/24/2024 7:56 AM CDT COVID-19 Rule Out 01/23/2024 01/23/2024 01/23/2024 6:41 PM CDT COVID-19 Rule Out 01/25/2024 01/25/2024 01/26/2024 2:22 PM CDT C. difficile 01/30/2024 01/30/2024 03/05/2024 12:0 2 PM CDT COVID-19 Rule Out 03/05/2024 03/05/2024 03/05/2024 2:05 PM CDT C. difficile 04/13/2024 04/13/2024 06/09/2024 9:04 AM TEMPLATE FITTER C. difficile 06/27/2024 06/27/2024 12/24/2024 7:55 PM CDT documented as of this encounter Care Teams Shaker Out Relationship Specialty Start Date End Date Hellen Jarquin PA-C [address] [place] [address] [address] [place] [address] PCP - General PHYSICIAN SUPERVISOR SMOKE CONTROL 08/18/22 documented as of this encounter
--- NOTE | 2025-04-14 20:24 | PM.IMHP2 ---
H&P: HPI History of Present Illness Date/Time: 04/14/25 20:24 Chief Complaint: Productive cough for 2 weeks Narrative: 79-year-old female with past medical history of prior CVA, distant history of pulmonary embolism, insulin-dependent diabetes mellitus, orthostatic hypotension, STEMI 01/2025 with subsequent ischemic cardiomyopathy with biventricular failure EF of 20-25% (refusing LifeVest) and post reperfusion atrial fibrillation with subsequent admission for lower GI bleed associated with Eliquis 03/26/2025 who presented to the ER who presented to the ER with orthopnea she for the last 2 days. The patient reports that his she has not noticed much shortness of breath with activity but she is feeling panicked when she lays down and cannot catch her breath. She has not noticed any abdominal swelling or lower extremity swelling. She denies any chest pain or palpitations. She has been compliant with a low-sodium diet and has been compliant with her cardiac medications. She reports that she feels significantly better after receiving Lasix last evening. She has had over a L urine output since Lasix administration. She does have a cough but she states that her cough has been chronic for a couple of years. She denies any fevers or chills. She denies any ill contacts. COVID flu and RSV PCR were negative. She does not have a scale at home to wear self. She is not on diuretic therapy at home. Review of Systems Review of Systems: 12 systems were reviewed with pertinent positives and negatives per HPI. Except as documented in the HPI, all other systems were reviewed and are negative. [facility] Past Medical History Medical History (Updated 04/14/25 @ 20:41 by Rosario Alberto DO) Hyperlipidemia LDL goal <70 Type 2 diabetes mellitus treated with insulin History of Clostridioides difficile colitis C diff colitis x6 with last episode June 2024 GERD (gastroesophageal reflux disease) ST elevation (STEMI) myocardial infarction 01/14/25 99% inclusion LAD with placement of drug-eluting stent Moderate pulmonary hypertension Ischemic cardiomyopathy With biventricular heart failure EF of 20-25% and diastolic dysfunction as well as moderate pulmonary hypertension Orthostatic hypotension Hx of roasterman use of blood thinners On hold after lower GI bleed March 2025 Colon, diverticulosis Anxiety and depression TIA (transient ischemic attack) (~2012) HTN (hypertension) Chronic headaches Arthritis Surgical History Surgical History (Updated 04/14/25 @ 20:38 by Rosario Alberto DO) History of coronary artery stent placement (01/14/25) 99% occlusion of the mid LAD with on X 3.5 x 15 drug-eluting stent placed over a bifurcating lesion. History of hand surgery trigger finger -right 3rd finger x3 History of bladder suspension procedure History of arthroscopy of left knee H/O: hysterectomy (~1979) Family History Family History Father Hypertension Mother Breast cancer Social History Social History (Updated 04/15/25 @ 08:21 by Rosario Alberto DO) Social History: She has been since proximally 2022. 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 She smokes a pack of cigarettes per day for 4 years quit smoking in the . She denies any illicit substance use. She very rarely drinks alcohol. Code status: Full code Healthcare power of trade mark attorney: La Liao (daughter) Smoking status: Former smoker Tobacco type: cigarettes Smoking end date: 05/06/79 Additional smoking assessment comments: quit smoking about 40 years ago Alcohol intake: never Drinks per week: 1 Alcohol use details: OCC. Substance use: never Substance use type: does not use Lack of Transportation: No Lack of Food: Never True Current Housing: I Have Housing Concerned About Future Housing: No Difficulty Paying Gas/Electric Bills: No Difficulty Paying for Meds: No Currently Unemployed: No Education: Associate Degree Difficulty w/ Childcare or Family Care: No Living arrangements: alone Occupation/Education: retired Gender identity (if verbalized by the patient): Female Spiritual care concerns: No Agree to blood products: Yes Meds Home Medications and Allergies Home Medications ?Medication ?Instructions ?Recorded ?Confirmed ?Type acetaminophen 500 mg tablet 500 mg PO Q6H PRN fever or pain 07/03/24 04/15/25 History pen needle, diabetic 32 gauge x #400 ea 07/22/24 04/15/25 Rx (Chante Pen Needle) 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,braille operator,cont #1 ea 10/26/24 04/15/25 Rx (FreeStyle James 3 Lawtons) magnesium oxide 400 mg (241.3 mg 400 mg PO DAILY #90 tabs 02/02/25 04/15/25 Rx magnesium) tablet glucagon 1 mg/0.2 mL subcutaneous 1 mg (0.2 mL) subcut ONCE PRN 02/11/25 04/15/25 Rx auto-injector (Gvoke HypoPen hypoglycemia #0.4 mL 2-Pack) glucose 4 gram chewable tablet 16 g (4 x 4 gram) PO Q15M PRN 02/11/25 04/15/25 Rx (Dex4 Glucose) hypoglycemia #60 tabs metoprolol succinate 25 mg 25 mg PO QAM #30 tabs 02/13/25 04/15/25 Rx tablet,extended release 24 hr (Toprol XL) venlafaxine 150 mg 150 mg PO DAILY #90 caps 02/15/25 04/15/25 Rx capsule,extended release 24 hr clopidogrel 75 mg tablet 75 mg PO DAILY #30 tabs 03/04/25 04/15/25 Rx sacubitril 24 mg-valsartan 26 mg 1 tablet PO BID 03/26/25 04/15/25 History tablet (Entresto) Held on 04/03/25. Instructions: Resume on 04/09/25. Until follow-up with cardiology rosuvastatin 20 mg tablet 20 mg PO QHS #30 tabs 04/07/25 04/15/25 Rx 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 sensor (FreeStyle #2 ea 04/14/25 04/15/25 Rx James 3 Plus Sensor device) empagliflozin 10 mg tablet 10 mg PO DAILY #30 tabs 04/14/25 04/15/25 Rx (Jardiance) insulin glargine 100 unit/mL (3 20 unit (0.2 mL) subcut QPM #15 mL 04/14/25 04/15/25 Rx mL) subcutaneous pen (Basaglar KwikPen U-100 Insulin) insulin lispro 100 unit/mL 5 unit (0.05 mL) subcut TIDWMEAL 04/14/25 04/15/25 Rx subcutaneous pen (Humalog KwikPen #30 mL (U-100) Insulin) linagliptin 5 mg tablet (Tradjenta) 5 mg PO QAM #90 tabs 04/14/25 04/15/25 Rx Allergies Allergy/AdvReac Type Severity Reaction Status Date / Time Penicillins Allergy Mild Swelling Verified 04/14/25 11:27 pentazocine Allergy Mild Unknown Verified 04/14/25 11:27 albuterol Allergy syncope Verified 04/14/25 11:27 aspirin Allergy Swelling Verified 04/14/25 11:27 codeine Allergy Numbness Verified 04/14/25 11:27 Sulfa (Sulfonamide Allergy Unknown Verified 04/14/25 11:27 Antibiotics) ibuprofen AdvReac GI upset Verified 04/14/25 11:27 Vital Signs Vital Signs - 24 hr 04/14/25 15:22 04/14/25 16:31 04/14/25 16:32 Temperature 98.8 F Pulse Rate 110 H 101 H Respiratory Rate 20 19 Blood Pressure 106/65 117/73 Pulse Oximetry 99 98 98 Oxygen Delivery Room Air Room Air 04/14/25 18:09 04/14/25 19:02 Temperature Pulse Rate 109 H 109 H Respiratory Rate 19 21 H Blood Pressure 116/76 Pulse Oximetry 98 100 Oxygen Delivery Exam Narrative: Weight 77.1 kg BMI 29.2 Const: Other: No acute distress, well-developed well-nourished HENMT: Other: Mucous membranes are moist, no oral pharyngeal erythema, edentulous in upper jaw, fair dentition lower jaw Eyes: Other: Pupils are equal and reactive, no scleral icterus, no conjunctival pallor, bilateral lens implants noted Neck: Other: No significant JVD, no lymphadenopathy Resp: Other: Clear to auscultation bilaterally, no increased work of breathing Cardio: Other: Regular rate, regular rhythm, 2+ bilateral radial and pedal pulses GI: Other: Soft, nontender, nondistended, positive bowel sounds : Other: Pure wick catheter in place with about 500 mL of urine in the VAC canister Skin: Other: No jaundice, no pallor Neuro: Other: Alert oriented, speech is clear, no facial asymmetry, moves all extremities equally Extrem: Other: No clubbing, cyanosis or edema Psych: Other: Appropriate mood and affect, pleasant and cooperative, judgment and insight intact Results Labs Labs: Laboratory Tests 04/14/25 16:58 04/14/25 16:58 04/14/25 04/14/25 16:58 19:45 WBC 10.2 H RBC 3.88 L Hgb 12.1 Hct 38.1 MCV 98.2 MCH 31.2 MCHC 31.8 L RDW 14.3 Plt Count 317 MPV 10.2 Immature Gran % (Auto) 0.5 Neut % (Auto) 64.4 Lymph % (Auto) 22.0 Garza % (Auto) 9.8 H Eos % (Auto) 2.8 Baso % (Auto) 0.5 Lymph # (Auto) 2.23 Garza # (Auto) 1.0 H Eos # (Auto) 0.3 Baso # (Auto) 0.1 Abs Immat Gran (auto) 0.05 H Absolute Neuts (auto) 6.6 Absolute Nucleated RBC 0.000 Nucleated RBC % 0.0 PT 17.8 H INR 1.5 APTT 39.8 H Sodium 139 Potassium 4.4 Chloride 108 H Carbon Dioxide 23 Anion Gap 8 BUN 18 H Creatinine 0.97 Estim Creat Clear Calc 41 Estimated GFR 55 L Glucose 146 H Calcium 9.3 Total Bilirubin 0.6 AST 33 ALT 20 Alkaline Phosphatase 80 Troponin I 0.029 NT-Pro-B Natriuret Pep 7330 H Total Protein 7.0 Albumin 3.9 Impressions Chest X-Ray 04/14/25 17:31 IMPRESSION: 1. Significant cardiomegaly and atherosclerotic aorta. 2. Congestive changes of lung bases with small left pleural effusion and blunting of right costophrenic angle. EKG:Test Date: 2025-04-14 16:56:46 Measurements Intervals [place] Rate: 104 P: 45 MS: 178 QRS: -9 QRSD: 94 T: 43 QT: 381 QTc: 503 Interpretive Statements SINUS TACHYCARDIA LOW QRS VOLTAGE - DIFFUSE LEADS ANTEROSEPTAL INFARCT, AGE INDETERMINATE BORDERLINE ST-T WAVE ABNORMALITY- DIFFUSE LEDS BASELINE WANDER- I, III, V1-V6 ABNORMAL ECG Compared to ECG 04/01/2025 05:52:16 NO SIGNIFICANT CHANGE Quality VTE Prophylaxis VTE prophylaxis: mechanical ordered (SCDs) Assessment and Plan Assessment and plan (1) Acute on chronic diastolic CHF (congestive heart failure): Code(s): I50.33 - Acute on chronic diastolic (congestive) heart failure Status: Acute (2) Ischemic cardiomyopathy: Code(s): I25.5 - Ischemic cardiomyopathy Status: Chronic (3) QT prolongation: Code(s): R94.31 - Abnormal electrocardiogram [ECG] [EKG] Status: Acute (4) HTN (hypertension): Qualifiers: Hypertension type: primary hypertension Qualified Code(s): I10 - Essential (primary) hypertension Code(s): I10 - Essential (primary) hypertension Status: Acute (5) Paroxysmal atrial fibrillation: Code(s): I48.0 - Paroxysmal atrial fibrillation Status: Acute (6) Type 2 diabetes mellitus treated with insulin: Code(s): E11.9 - Type 2 diabetes mellitus without complications; Z79.4 - exterminator termite (current) use of insulin Status: Acute Plan Patient has acute CHF exacerbation in the setting of chronic ischemic cardiomyopathy. Patient was given a dose of Lasix in the ER last night and has had good response. The patient appears relatively euvolemic currently. Will decrease Lasix dosing from twice daily down to once daily. Will monitor strict I&O's and daily weights. Will resume home Jardiance, Entresto, Plavix and beta-christa. Cardiology was consulted from the ER. Will place patient on a 2 g sodium restricted diet. The patient currently in sinus rhythm will monitor on telemetry. Eliquis on hold due to recent lower GI bleed. Patient does have mild QT prolongation. Will discontinue Zofran in refrain from use of other QT prolonging medications. Will repeat electrolyte panel in a.m.. Patient is glucose is is stable. Will resume home Lantus and mealtime bolus insulin. Pharmacy to adjust Lantus dosing up to 20%. Low-dose sliding scale insulin with Accu-Cheks a.c. HS and hypoglycemia protocol in order. Will transfer patient to medical floor with telemetry. MEDICAL DECISION MAKING NARRATIVE -Spoke with the ED provider in detail regarding patient's evaluation, workup and management -Patient seen and examined at bedside -Collaborated with patient's nurse at the bedside in detail and addressed all concerns -Labs, electrolytes, radiology, investigations and test results personally reviewed and interpreted unless otherwise specified -ED/Consult/Nursing/Ancilliary notes on the chart reviewed and appreciated -applicable past medical records and labs were reviewed and unless stated otherwise. -Spoke with patient at bedside and diagnosis, plan of care was discussed and questions answered. Hospitalist MIPS Advance Care Plan I have confirmed that the patient's Advanced Care Plan is present, code status is documented, or surrogate decision maker is listed in patient medical record.: Yes Medication Reconciliation I have utilized all available resources to obtain, update and review the patients current medications (includes all prescriptions, OTC, herbals, cannabis, and nutritional supplements).: Yes
--- OUTSIDE RECORDS SUMMARY | 2025-04-14 21:03 | XMS_ITS | Encounter Summary ---
Author Organization [facility] Address [address] [place] [address] Care Team Providers Care Piano Case Maker Name Role Phone Chidi Reis MD Unavailable [phone] Hellen Jarquin Primary Care Provider [phone] Encounter Details Date Type Department Care Team (Late st Contact Info) Description 04/09/2025 Orders Only [facility] Cardiology [address] [facility] [address] [place] [id number] Valorie Anderson MD [address] [facility] [address] [place] [address] Social History Tobacco Use Types Packs/Day Years Used Date Smoking Tobacco: Never Smokeless Tobacco: Never Alcohol Use Standard Drinks/Week Comments Yes 0 (1 standard drink = 0.6 oz pur e alcohol) socially Comments No Sex and Gender Information Value Date Recorded Sex Assigned at Not on file Legal Sex Female 1:43 AM CSW Gender Identity Not on file Sexual Orientation Not on file documented as of this encounter Plan of Treatment Not on file documented as of this encounter Procedures Procedure Name Priority Date/Time Associated Diagnosis Comments CARDIOLOGY DOCUMENT SCAN Routine 03/31/2025 3:14 PM CSW CARDIOLOGY DOCUMENT SCAN Routine 03/30/2025 3:13 PM CSW CARDIOLOGY DOCUMENT SCAN Routine 03/29/2025 3:10 PM CSW documented in this encounter Results * Cardiology Document Scan (03/31/2025 3:14 PM CSW) Anatomical Region Laterality Modality Other us Valorie Anderson MD [facility] CARDIAC SERVICES PROCEDU RES Final Result * Cardiology Document Scan (03/30/2025 3:13 PM CSW) Anatomical Region Laterality Modality Other us Valorie Anderson MD CV CARDIAC SERVICES PROCEDU RES Final Result * Cardiology Document Scan (03/29/2025 3:10 PM CSW) Anatomical Region Laterality Modality Other us Valorie Anderson MD CV CARDIAC SERVICES PROCEDU RES Final Result documented in this encounter Visit Diagnoses Not on filedocumented in this encounter Care Teams Piano Case Maker Relationship Specialty Start Date End Date Hellen Jarquin PA [address] [place] [address] PCP - General Family Practice 02/12/25 Chidi Reis MD Internal Medicine 03/26/24 documented as of this encounter
--- OUTSIDE RECORDS SUMMARY | 2025-04-14 21:03 | XMS_ITS | Encounter Summary ---
Author Organization [facility] Address [address] [place] [address] Care Team Providers Care Beading Sawyer Name Role Phone Hellen Jarquin PA-C Primary Care Provider [phone] Encounter Details Date Type Department Care Team (Late st Contact Info) Description 02/01/2023 Therapy Plan [facility] Day Services [address] [place], [place] [id number] Wade Altamirano MD [address] [place] [address] Social History Tobacco Use Types Packs/Day [...] How often do you attend chur or temple services? 1 to 4 times per year 09/16/2022 Do you belong to any clubs o r organizations such as anglican groups, unions, fraternal or athletic groups, or [...] Recorded Patient Health Questionnaire-2 Score 0 01/25/2023 [facility] of Occupat ional Health - Occupational Stress [...] Sex Assigned at Female 05/31/2024 8:39 PM DRIER AND PULVERIZER TENDER Legal Sex Female 10:55 PM DRIER AND PULVERIZER TENDER Gender Identity Female 05/31/2024 8:39 PM DRIER AND PULVERIZER TENDER Sexual Orientation Not on file documented as of this encounter Functional Status * Are you deaf or do you have serious difficulty hearing Answer Date of Assessment Author Status No 11/16/2022 3:08 PM Kairn Cheek RN Active * Are you blind [...] PM DIANAT Mary Velazquez RN Active * [place] Suicide Severity Rating Scale (Screener/Recent Self-Report) Question [...] Comment:Isolation period completed 11/15/2022 02/05/202303/25 7:41 AM DRIER AND PULVERIZER TENDER COVID-19 Rule Out 02/04/2023 02/04/2023 02/04/2023 8:49 PM CDT COVID-19 Rule Out 02/05/2023 02/05/2023 02/05/2023 7:41 PM CDT COVID-19 Rule Out 03/24/2023 03/24/2023 03/24/2023 3:57 PM DRIER AND PULVERIZER TENDER C. difficile 05/03/2023 05/03/2023 01/24/2024 7:56 AM CDT COVID-19 Rule Out 01/23/2024 01/23/2024 01/23/2024 6:41 PM CDT COVID-19 Rule Out 01/25/2024 01/25/2024 01/26/2024 2:22 PM CDT C. difficile 01/30/2024 01/30/2024 03/05/2024 12:0 2 PM CDT COVID-19 Rule Out 03/05/2024 03/05/2024 03/05/2024 2:05 PM CDT C. difficile 04/13/2024 04/13/2024 06/09/2024 9:04 AM DRIER AND PULVERIZER TENDER C. difficile 06/27/2024 06/27/2024 12/24/2024 7:55 PM CDT documented as of this encounter Care Teams Beading Sawyer Relationship Specialty Start Date End Date Hellen Jarquin PA-C [address] [place] [address] [address] [place] [address] PCP - General PHYSICIAN CLINICAL REIMBURSEMENT SPECIALIST 08/18/22 documented as of this encounter
--- OUTSIDE RECORDS SUMMARY | 2025-04-14 21:03 | XMS_ITS | Clinical Summary ---
Author Organization [facility] Address [address] [place] [address] Care Team Providers Care Machine Adjuster Name Role Phone Hellen Jarquin PA-C Primary Care Provider [phone] Allergies Active Allergy Reactions Criticality Noted Date [...] diabetes mellitus wit hout complication, unspecified whether nursing home insulin use 03/25/2023 03/25/2023 Diabetes mellitus due [...] from your doctor or pharmacy? Never 04/16/2024 [facility] Utilities Answer Date Recorded In the past 12 months has th e electric, boarding pass, oil, or water [employer] threatened to shut off services in your [...] week 04/16/2024 How often do you attend [facility] or taoism services? More than 4 times per year [...] Recorded Patient Health Questionnaire-2 Score 0 08/04/2024 [facility] - Occupational Stress Questionnaire Answer [...] any time in the past 12 m [facility], were you homeless or living in a longterm (including now)? No 06/26/2024 Comments No Sex and Gender Information Value Date Recorded Sex Assigned at Female 05/31/2024 8:39 PM INSERTER PROMOTIONAL ITEM Legal Sex Female 10:55 PM INSERTER PROMOTIONAL ITEM Gender Identity Female 05/31/2024 8:39 PM INSERTER PROMOTIONAL ITEM Sexual Orientation Not on file Last Filed Vital Signs Vital Sign Reading Time Taken Comments Blood Pressure 123/79 07/01/2024 11:10 AM INSERTER PROMOTIONAL ITEM Pulse 119 07/01/2024 11:10 AM INSERTER PROMOTIONAL ITEM nurse notified Temperature 36.3 C (97.3 F) 07/01/2024 11:10 AM INSERTER PROMOTIONAL ITEM Respiratory Rate 18 07/01/2024 11:1 0 AM INSERTER PROMOTIONAL ITEM Oxygen Saturation 93% 07/01/2024 11: 10 AM INSERTER PROMOTIONAL ITEM Inhaled Oxygen Concentration - - Weight 75.5 kg (166 lb 7.2 oz) 07/01/2024 4:55 AM INSERTER PROMOTIONAL ITEM Height 160 cm (5' 3) 06/26/2024 3:39 PM INSERTER PROMOTIONAL ITEM Body Mass Index 29.48 06/26/2024 3:39 PM INSERTER PROMOTIONAL ITEM Plan of Treatment Health Maintenance Due Date [...] Td or Tdap) 05/31/2034 05/31/2024 PHQ-2 (Physician [place]) Completed 08/04/2024 Hepatitis A Vaccines Aged Out [...] and discharge planning Lifestyle No Helen Santos, ESTATE AGENThigh pressure cleaner Devices Implanted Type Area Wrapping Machine Operator Device Identifier Shelf Expiration Date Model / Serial / Lot 1.5 6 Hole Plate Implanted:Qty: 1 on 06/09/2024 by Vishnu Olsen DO at [facility] Right: Hand DEPUY SYNTHES .003 / / Description:Implanted to fou rth metacarpal 1.5 Cortex Screw 11mm Implanted:Qty: 2 on 06/09/2024 by Vishnu Olsen DO at [facility] Right: Hand DEPUY SYNTHES .111 / / Description:Implanted to fou rth metacarpal 1.5 Cortex Screw 12mm Implanted:Qty: 1 on 06/09/2024 by Vishnu Olsen DO at [facility] Right: Hand DEPUY SYNTHES .112 / / Description:Implanted to fou rth metacarpal 1.5 Cortex Screw 10mm Implanted:Qty: 1 on 06/09/2024 by Vishnu Olsen DO at [facility] Right: Hand DEPU[employer] SYNTHES .110 / / Description:Implanted to fou rth metacarpal 1.5 Cortex Screw 9mm Implanted:Qty: 1 on 06/09/2024 by Vishnu Olsen DO at [facility] Right: Hand DEPU[employer] SYNTHES .109 / / Description:Implanted to fou rth metacarpal 1.5 Locking Screw 14mm Implanted:Qty: 1 on 06/09/2024 by Vishnu Olsen DO at [facility] Right: Hand DEPU[employer] SYNTHES .014 / / Description:Implanted to fou rth metacarpal Explanted Type Area Wrapping Machine Operator Device Identifier Shelf Expiration Date Model / Serial / Lot 1.5 Cortex Screw 12mm Explanted:Qty: 1 on 06/09/2024 by Vishnu Olsen DO at [facility] Right: Hand DEPUY SYNTHES .112 / / Description:Fourth metacarpa l Procedures Procedure Name Priority Date/Time Associated Diagnosis Comments HEMOGLOBIN, GLYCOSYLATED STAT 05/03/2024 2:00 PM INSERTER PROMOTIONAL ITEM LIPID PANEL Routine 01/26/2024 4:30 AM CDT from Last 3 Months or Most Recently Relevant to Health Maintenance Results * (ABNORMAL) HEMOGLOBIN, GLYCOSYLATED (05/03/2024 2:00 PM INSERTER PROMOTIONAL ITEM) HGB A1C 10.0(H) <5.7 % 05/03/2024 2:56 PM INSERTER PROMOTIONAL ITEM [facility] Comment: INCREASED RISK OF DIABETES <5.7% NON-DIABETES 5.7-6.4% INCREASED RISK FOR FUTURE DIABETES > OR = 6.5 CONSISTENT WITH DIABETES STANDARDS OF MEDICAL CARE IN DIABETES-2010 DIABETES CARE, 33(SUPP 1): S1-S61,2010 ESTIMATED AVG GLUCOSE 240 mg/dL 05/03/2024 2:56 PM INSERTER PROMOTIONAL ITEM [facility] 05/03/2024 2:00 PM INSERTER PROMOTIONAL ITEM us Deepa Stein NP LABORATORY Final Resul t [facility] [address] [place] [address], * LIPID PANEL (01/26/2024 4:30 AM CDT) CHOLESTEROL 133 <200.0 MG/DL 01/26/2024 5:46 AM CDT [facility] TRIGLYCERIDES 122 <150 MG/DL 01/26/2024 5:46 AM CDT [facility] HDL 51 >40.0 MG/DL 01/26/2024 5:46 AM CDT [facility] LDL (CALCULATED) 58 <100 MG/DL 01/26/20 5:46 AM CDT [facility] NON HDL CHOLESTEROL 82 <130 MG/DL 01/25 5:46 AM CDT [facility] CHOL/HDL RATIO 2.6 0.0 - 4.5 01/26/2024 5:46 AM CDT [facility] VLDL CALCULATION 24 5 - 55 MG/DL 01/26/2024 5:46 AM CDT [facility] LIPID INTERPRETATION 01/26/2024 5:46 AM CDT [facility] Comment: NIH CONCENSUS REPORT RECOMMENDATIONS: ADULT CHILD LOW RISK: CHOLESTEROL <200 <170 TRIGLYCERIDE <150 --- HDL >=60 --- LDL <100 <110 BORDERLINE: CHOLESTEROL 200-239 170-199 TRIGLYCERIDE 150-199 --- HDL 40-59 --- LDL 100-159 110-129 HIGH RISK: CHOLESTEROL >=240 >=200 TRIGLYCERIDE >=200 --- HDL <40 --- LDL >=160 >=130 01/26/2024 4:30 AM CDT Kathi Royal MD LABORATORY Final Result [facility] [address] [place] [address], from Last 3 Months or Most Recently Relevant to Health Maintenance Insurance [facility] MEDICARE MEDICAID Advance Directives Documents on File Type Date Recorded Patient Journeyman Carpenter Expl anation DNR (Do Not Resuscitate) Documentation [...] 6:01 PM 04/16/2024 1:44 PM Care Teams Machine Adjuster Relationship Specialty Start Date End Date Hellen Jarquin PA-C [address] [place] [address] [address] [place] [address] PCP - General PHYSICIAN CONTRACT PROGRAMMER 08/18/22
--- OUTSIDE RECORDS SUMMARY | 2025-04-14 21:03 | XMS_ITS | Encounter Summary ---
Author Organization [facility] Healthcare Address [address] [place] [address] Care Team Providers Care Machinist Tool And Die Name Role Phone Chidi Reis MD Unavailable [phone] Hellen Jarquin Primary Care Provider [phone] Encounter Details Date Type Department Care Team (Late st Contact Info) Description 04/07/2025 Telephone [facility] Medical Group Cardiology [address] [facility] [address] [place] [address] Omer Rios MD [address] [place] [address] Social History Tobacco Use Types Packs/Day Years Used Date Smoking Tobacco: Never Smokeless Tobacco: Never Alcohol Use Standard Drinks/Week Comments Yes 0 (1 standard drink = 0.6 oz pur e alcohol) socially Comments No Sex and Gender Information Value Date Recorded Sex Assigned at Not on file Legal Sex Female 1:43 AM MAINFRAME PROGRAMMER ANALYST Gender Identity Not on file Sexual Orientation Not on file documented as of this encounter Miscellaneous Notes * Telephone Encounter - Deepa De Jesus RN - 04/07/2025 3:23 PM MAINFRAME PROGRAMMER ANALYST Spoke with pts daughter, reviewed AH discharge summary. Pt was instructed to hold Entresto until seen by cardiology due to low bp readings. Daughter verbalizes understanding. Also ordered was a 30 day heart monitor and a referral to EP. Advised that per discharge instructions they advised that bothof these are advised. Daughter verbalizes understanding and appreciative of return call. FRAME PROGRAMMER ANALYST * Telephone Encounter - Deepa De Jesus RN - 04/07/2025 2:55 PM MAINFRAME PROGRAMMER ANALYST LM on requesting return call to discuss. FRAME PROGRAMMER ANALYST * Telephone Encounter - Shirley Johnson - [...] we referred her to an EP at [facility] to discuss ICD. Requesting call back to discuss. Contact: FRAME PROGRAMMER ANALYST documented in this encounter Plan of Treatment Not on file documented as of this encounter Visit Diagnoses Not on filedocumented in this encounter Care Teams Machinist Tool And Die Relationship Specialty Start Date End Date Hellen Jarquin PA [address] [place] [id number] PCP - General Family Practice 02/12/25 Chidi Reis MD Internal Medicine 03/26/24 documented as of this encounter
--- OUTSIDE RECORDS SUMMARY | 2025-04-14 21:03 | XMS_ITS | Encounter Summary ---
Author Organization [facility] Address [facility] [place] [address] Care Team Providers Care Corncob Pipes Assembler Name Role Phone Hellen Jarquin PA-C Primary Care Provider [phone] Encounter Details Date Type Department Care Team (Late st Contact Info) Description 03/25/2024 [employer] Message Enc [facility] Medical Group Multispecialty [address] [address] Similar Pages, [facility] Provider referral Social History [...] from your doctor or pharmacy? Never 01/30/2024 [facility] Utilities Answer Date Recorded In the [...] week 01/30/2024 How often do you attend [facility] or anglican services? More than 4 times per year 01/30/2024 Do you belong to any clubs o r organizations such as bahai groups, unions, fraternal or athletic groups, or [...] Recorded Patient Health Questionnaire-2 Score 0 02/13/2024 [facility] - Occupational [...] place to sleep or slept in a fdc (including now)? No 03/24/2023 Housing Stability Vital Sign Answer Hussain e Recorded In the last 12 months, was t here a time when you were not able to pay the mortgage or rent on time? No 03/05/2024 In the past 12 months, how m any times have you moved where you were living? 1 03/05/2024 At any time in the past 12 m [facility], were you homeless or living in a fdc (including now)? No 03/05/2024 Comments No Sex and Gender Information Value Date Recorded Sex Assigned at Female 05/31/2024 8:39 PM ORACLE TECHNICAL ARCHITECT Legal Sex Female 10:55 PM ORACLE TECHNICAL ARCHITECT Gender Identity Female 05/31/2024 8:39 PM ORACLE TECHNICAL ARCHITECT Sexual Orientation Not on file documented as [...] and discharge planning Lifestyle No Helen Santos, WORK FROM HOME documented as of this encounter Visit Diagnoses Not on filedocumented in this encounter Additional Health Concerns Infection Onset Date Last Indicated Resolved Time C. difficile 04/13/2024 04/13/2024 06/09/2024 9:04 AM ORACLE TECHNICAL ARCHITECT C. difficile 06/27/2024 06/27/2024 12/24/2024 7:55 PM CDT documented as of this encounter Care Teams Corncob Pipes Assembler Relationship Specialty Start Date End Date Hellne Jarquin PA-C [address] [place] [address] PCP - General PHYSICIAN CLOTH COLORER 08/18/22 documented as of this encounter
--- OUTSIDE RECORDS SUMMARY | 2025-04-14 21:03 | XMS_ITS | Clinical Summary ---
Author Organization [facility] Care Team Providers Care Agricultural Engineering Teacher Name Role Phone Unavailable Primary Care Provider [...]
--- OUTSIDE RECORDS SUMMARY | 2025-04-14 21:04 | XMS_ITS | Clinical Summary ---
Author Organization [facility] Address [address] [place] [address] Care Team Providers Care Offset Lithographic Press Setter Name Role Phone Chidi Reis MD Unavailable [phone] Hellen Jarquin Primary Care Provider [phone] Allergies Active Allergy Reactions Criticality Noted Date [...] Department Care Team Description 04/09/2025 Orders Only [facility] Medical [facility] Cardiology [address] [facility] [address] [place] [phone] Valorie Anderson MD 04/07/2025 Telephone [facility] Cardiology [address] [place] [address] Omer Rios MD 03/31/2025 Telephone [facility] Cardiology [address] [place] [phone] Drea Mccrary NP 03/26/2025 Telephone [place] [address] [place] [phone] Omer Rios MD Hypotension; Rectal Bleeding 03/16/2025 9:15 AM STOCK SAW OPERATOR Ancillary Procedure [place] [address] [place] [phone] Cardiomyopathy, ischemic 03/16/2025 Results Follow-Up [place] [address] [place] [phone] Judith Díaz NP Transthoracic Echo (TTE) Limited/Followup 02/12/2025 10:00 AM CDT Office Visit [place] [address] [place] [phone] Judith Díaz NP Coronary artery disease involving [place] coronary artery of [place] heart without angina pectoris; Cardiomyopathy, ischemic; Presence of stent in coronary artery; Paroxysmal atrial fibrillation (HCC); Chronic anticoagulation 02/12/2025 Telephone [place] [address] [place] [phone] Judith Díaz NP 02/09/2025 Orders Only [place] [address] [place] [phone] Drea Mccrary NP 02/01/2025 Orders Only [facility] Cardiology [address] [place] [address] [place] [phone] Valorie Anderson MD 01/28/2025 Orders Only [facility] Cardiology [address] [place] [address] [place] [phone] Drea Mccrary NP 01/26/2025 Orders Only [facility] Cardiology [address] [place] [address] [place] [phone] Pantera Muller MD 01/22/2025 Telephone [facility] Cardiology [address] [facility] [address] [place] [phone] Drea Mccrary NP 01/20/2025 Orders Only [facility] Medical Group Cardiology [address] [place] [address] Valorie Anderson MD 01/18/2025 Orders Only [facility] Cardiology [address] [place] [address] Omer Rios MD 01/18/2025 Telephone [facility] Cardiology [address] [place] [address] Omer Rios MD 01/14/2025 Orders Only [facility] Health Information Management [address] [place] [phone] Scanning, Provider from Last 3 Months Surgical [...] 2016 STEMI (ST elevation myocardi al infarction) ([facility]) 01/2025 Family History Medical History Relation Name [...] on file Legal Sex Female 1:43 AM STOCK SAW OPERATOR Gender Identity Not on file Sexual [...] CARDIOLOGY DOCUMENT SCAN Routine 025 3:14 PM STOCK SAW OPERATOR CARDIOLOGY DOCUMENT SCAN Routine 025 3:13 PM STOCK SAW OPERATOR CARDIOLOGY DOCUMENT SCAN Routine 025 3:10 PM STOCK SAW OPERATOR TRANSTHORACIC ECHO (TTE) LIMITED/FOLLOW UP W LTD DOPPLER/CF WO CONTRAST Routine 03/16/2025 9:57 AM STOCK SAW OPERATOR Cardiomyopathy, ischemic ELECTROCARDIOGRAM REPORT Routine 025 3:00 [...] * Cardiology Document Scan (03/31/2025 3:14 PM STOCK SAW OPERATOR) Anatomical Region Laterality Modality Other us Valorie Anderson MD CV CARDIAC SERVICES PROCEDU RES Final Result * Cardiology Document Scan (03/30/2025 3:13 PM STOCK SAW OPERATOR) Anatomical Region Laterality Modality Other us Valorie Anderson MD CV CARDIAC SERVICES PROCEDU RES Final Result * Cardiology Document Scan (03/29/2025 3:10 PM STOCK SAW OPERATOR) Anatomical Region Laterality Modality Other us Valorie Anderson MD CV CARDIAC SERVICES PROCEDU RES Final Result * TRANSTHORACIC ECHO (TTE) LIMITED/FOLLOW UP W LTD DOPPLER/CF WO CONTRAST (03/16/2025 9:57 AM STOCK SAW OPERATOR) Estimated EF 25-30 % CONS SCIMAGE EF Mod BP 33 % CONS SCIMAGE Anatomical Region Laterality Modality Ultrasound 03/16/2025 9:24 AM STOCK SAW OPERATOR Narrative 03/16/2025 1:24 PM STOCK SAW OPERATOR [facility] Medical Group Cardiology [address] [facility] [address], [place] [address] [address] [facility] [address], [place] [address] [phone] P:[phone] Echocardiographic Report Patient Name: CHRISTOPHE BECKHAM F : 1945 Study Date: 03/16/2025 9:24:54 AM Sex: F Change Management Administrator: Roya Dawkins)(CT), [facility] Location: DC Ref Provider: JUDITH DÍAZ Height(Cm): 163 BSA: [...] FINDINGS: Interpretation Site: Exam was interpreted at [facility]. Left Ventricle: Mild concentric left [...] By: Adam Brown MD 03/16/2025 1:23:58 PM STOCK SAW OPERATOR Procedure Note Adam Brown MD - 03/16/2025 [facility] Medical Group Cardiology [address] [facility] [address], [place] [address] [address] [facility] [address], [place] [address] [phone] P:[phone] Echocardiographic Report Patient Name: CHRISTOPHE BECKHAM F : 1945 Study Date: 03/16/2025 9:24:54 AM Sex: F Change Management Administrator: Roya Dawkins)(CT), [facility] Location: [facility] Provider: JUDITH DÍAZ Height(Cm): 163 [...] FINDINGS: Interpretation Site: Exam was interpreted at [facility]. Left Ventricle: Mild concentric left [...] By: Adam Brown MD 03/16/2025 1:23:58 PM STOCK SAW OPERATOR Judith Díaz NP CV ECHO PROCEDURES Final [...] Laterality Modality Other us Drea Delaney Ventimiglia CURATOR HERBARIUM CV CARDIAC SERVICE S PROCEDURES Final Result * Cardiology Document Scan (01/26/2025 1:20 PM CDT) Anatomical Region Laterality Modality Other us Drea Delaney Ventimiglia CURATOR HERBARIUM CV CARDIAC SERVICE S PROCEDURES Final Result [...] Laterality Modality Other us Drea Delaney Ventimiglia CURATOR HERBARIUM CV CARDIAC SERVICE S PROCEDURES Final Result * Cardiology Document Scan (01/21/2025 1:15 PM CDT) Anatomical Region Laterality Modality Other us Drea Delaney Ventimiglia CURATOR HERBARIUM CV CARDIAC SERVICE S PROCEDURES Final Result * Cardiology Document Scan (01/20/2025 1:12 PM CDT) Anatomical Region Laterality Modality Other us Drea Delaney Ventimiglia CURATOR HERBARIUM CV CARDIAC SERVICE S PROCEDURES Final Result * Cardiology Document Scan (01/19/2025 1:05 PM CDT) Anatomical Region Laterality Modality Other us Drea Mccrary CURATOR HERBARIUM CV CARDIAC SERVICE S PROCEDURES Final Result [...] Months Insurance MEDICARE [employer] MEDICARE SUPPLEMENT INSURANCE [facility] MEDICARE ADVANTAGE IDPA [facility] MEDICARE ADVANTAGE IDPA Advance Directives For more information, please contact: [phone] * Full Code (Latest Code Status on File) Date Activated Date Inactivated Comments 02/09/2023 6:04 AM Care Teams Offset Lithographic Press Setter Relationship Specialty Start Date End Date Hellen Jarquin PA [address] [place] [id number] PCP - General Family Practice 02/12/25 Chidi Reis MD Internal Medicine 03/26/24
--- NOTE | 2025-04-14 22:23 | PC.NURSE ---
Pt urine incontinent, brief changed and clean linen applied.
[2025-04-14 23:14] LABS: Influenza A QL RT-PCR Negative (Negative); Influenza B QL RT-PCR Negative (Negative); RSV RNA, RT-PCR Negative (Negative); SARS-CoV-2 RNA PCR Negative (Negative)
[2025-04-15] VITALS (17 sets, daily range): BP systolic 81–124; BP diastolic 48–99; PULSE 60–103; RESP 15–20; TEMP 36.5–37.1; O2SAT 91–98
--- NOTE | 2025-04-15 00:04 | WPCEDHO ---
ED Hand Off Checklist All vitals saved: Y IV Site documented: Y All med administrations documented: Y Triage Note Triage Note To ed with c/o productive cough 04/14/25 16:31 yellow sputum for 2 weeks. States she has been on steroids and antibiotics with no relief of symptoms. Harsh barking cough during triage. Allergies Penicillins Allergy (Mild, Verified 04/14/25 11:27) Swelling Patient received ceftriaxone in January 2025 pentazocine Allergy (Mild, Verified 04/14/25 11:27) Unknown TALWIN albuterol Allergy (Verified 04/14/25 11:27) syncope aspirin Allergy (Verified 04/14/25 11:27) Swelling codeine Allergy (Verified 04/14/25 11:27) Numbness Sulfa (Sulfonamide Antibiotics) Allergy (Verified 04/14/25 11:27) Unknown ibuprofen Adverse Reaction (Verified 04/14/25 11:27) GI upset Family History (Last Reviewed 04/14/25 @ 20:36 by Rosario Alberto DO) Father Hypertension Mother Breast cancer Active Medications including assessments/comments Furosemide (Furosemide Inj 40 Mg/4 Ml Vial) 40 mg IV PUSH Q12HR DOYLE Last Admin: 04/14/25 21:31 Dose: 40 mg Documented By: JOANN Administered/Completed Medications Discontinued Medications Furosemide (Furosemide Inj 40 Mg/4 Ml Vial) 40 mg IV PUSH ONCE STA Stop: 04/14/25 18:01 Last Admin: 04/14/25 18:14 Dose: 40 mg Documented By: HOPE Notes 04/14/25 22:23 Nurse Note by Aura Thurston Pt urine incontinent, brief changed and clean linen applied. Initialized on 04/14/25 22:23 - END OF NOTE Interventions/Assessments IV / Saline Lock, Insert Start: 04/14/25 15:21 Freq: Status: Active Protocol: Document 04/14/25 18:08 HOPE (Rec: 04/14/25 18:09 [facility] [id number]) IV Assessment Peripheral Access Left Antecubital IV Catheter Access Initiated IV Insertion Date 04/14/25 IV Insertion Time 18:08 Catheter Gauge 20 IV Site Assessment WNL IV Care and WNL Maintenance PA: Respiratory Assessment Start: 04/14/25 15:21 Freq: Status: Active Protocol: Document 04/14/25 16:31 HOPE (Rec: 04/14/25 16:32 [facility] [id number]) Respiratory Assessment Symptoms Congestion,Cough,Shortness of Breath at Rest Effort Normal Pattern Regular Depth Normal Chest Expansion Symmetrical Bilateral Throughout Phase Expiratory Lung Sounds Diminished Cough Description Productive Cough Frequency Intermittent Oxygen Delivery Oxygen Delivery Room Air Pulse Oximetry (90- 98 100) Last Vital Signs Temperature 98.3 F 04/14/25 20:25 Pulse Rate 100 04/14/25 23:00 Respiratory Rate 20 04/14/25 23:00 Pulse Oximetry 93 04/14/25 23:00 Blood Pressure 117/73 04/14/25 23:00 Blood Pressure Mean 87 04/14/25 23:00 Blood Pressure Position Sitting 04/14/25 20:25 Oxygen Delivery Room Air 04/14/25 16:31 Weight 77.1 kg 04/14/25 16:31 Last Result - Abnormals Only WBC 10.2 K/mm3 (4.5-10.0) H 04/14/25 16:58 RBC 3.88 M/mm3 (4.2-5.4) L 04/14/25 16:58 MCHC 31.8 g/dl (32-36) L 04/14/25 16:58 Williamson % (Auto) 9.8 % (2.6-8.5) H 04/14/25 16:58 Williamson # (Auto) 1.0 K/mm3 (0.1-0.6) H 04/14/25 16:58 Abs Immat Gran (auto) 0.05 K/mm3 (0.00-0.031) H 04/14/25 16:58 PT 17.8 Seconds (11.1-14.7) H 04/14/25 19:45 APTT 39.8 Seconds (22.3-36.8) H 04/14/25 19:45 Chloride 108 mmol/L (98-107) H 04/14/25 16:58 BUN 18 mg/dL (7-17) H 04/14/25 16:58 Estimated GFR 55 (59-) L 04/14/25 16:58 Glucose 146 mg/dL (65-110) H 04/14/25 16:58 NT-Pro-B Natriuret Pep 7330 pg/mL (19.9-100) H 04/14/25 16:58 Most Recent Suicide Severity Rating Suicide Severity Rating NO RISK INDICATED 04/14/25 16:31
--- NOTE | 2025-04-15 00:27 | ADMGEN ---
This patient, Ailyn Neff, was admitted to IMU Room 206-01. Patient/family oriented to hospital policies and general routines including ID bracelet, bed and alarms, visiting hours, pain management, procedures, bathroom and other care routines, personal items, smoking policy, room service/diet, and visiting hours. Information on how to activate the Rapid Response Team has been discussed. Patient/Family are encouraged to report perceived risks to care and to ask questions if they do not understand what they are told or what they should do.
[2025-04-15 04:16] LABS: Hematocrit 38.6 % (37.0-47.0); Hemoglobin 12.6 g/dL (12.0-15.0); Mean Corpuscular HGB Conc 32.6 g/dl (32-36); Mean Corpuscular Hemoglobin 31.3 pg (26-34); Mean Corpuscular Volume 96.0 fl (80-100); Platelet Count Result 297 k/mm3 (150-375); Red Blood Count 4.02 M/mm3 (4.2-5.4); White Blood Count 10.9 K/mm3 (4.5-10.0)
[2025-04-15 04:36] LABS: Anion Gap 8 mmol/L (4-12); Blood Urea Nitrogen 19 mg/dL (7-17); Calcium 9.0 mg/dL (8.4-10.2); Carbon Dioxide 28 mmol/L (22-30); Chloride 101 mmol/L (98-107); Estimated CRCL calculation 36 ml/min; Estimated Glomerular Filt Rate 47; Glucose 161 mg/dL (65-110); Magnesium 1.7 mg/dL (1.6-2.3); Potassium 3.3 mmol/L (3.4-5.0); Sodium 137 mmol/L (137-145)
[2025-04-15] MEDS: POTASSIUM CHLORIDE 20 MEQ ER TABLET 40 MEQ PO (09:09)
[2025-04-15] MEDS: SACUBITRIL/VALSARTAN 24-26 MG TABLET 1 TAB PO (09:10)
[2025-04-15] MEDS: EMPAGLIFLOZIN 10 MG TABLET PO (09:10)
[2025-04-15] MEDS: METOPROLOL SUCCINATE EXT REL 25 MG TABCR PO (09:10)
[2025-04-15] MEDS: CLOPIDOGREL BISULFATE 75 MG TABLET PO (09:10)
[2025-04-15] MEDS: MAGNESIUM OXIDE 400 MG TABLET PO (09:10)
[2025-04-15] MEDS: VENLAFAXINE HCL XR 75 MG CAP.ER.24H 150 MG PO (09:10)
[2025-04-15] MEDS: INSULIN ASPART (*BKC) 100 UNITS/ML SUB-Q ×3 (09:12→16:51)
[2025-04-15] MEDS: FUROSEMIDE INJ 40 MG/4 ML VIAL IV PUSH (10:14)
--- NOTE | 2025-04-15 10:44 | PM.CNCAR ---
Assessment and Plan Assessment and plan (1) Congestive heart failure: Code(s): I50.9 - Heart failure, unspecified Status: Acute (2) Coronary artery disease: Code(s): I25.10 - Atherosclerotic heart disease of cachil dehe coronary artery without angina pectoris Status: Acute Plan 79-year-old woman with CAD (STEMI sp LAD PCI 01/2025), chronic systolic heart failure (biventricular failure; LVEF 20-25% who refuse LifeVest but is considering ICD), post PCI atrial fibrillation which has since resolved, insulin-dependent diabetes, history of lower GI bleed associated with Eliquis, history of CVA, and history of pulmonary embolism presents with orthopnea and shortness of breath Acute on chronic systolic heart failure (biventricular failure; LVEF 20-25%) -continue Lasix 40 mg IV push daily -continue Entresto 24-26 mg p.o. b.i.d., metoprolol succinate 25 mg p.o. daily, and Jardiance 10 mg p.o. daily -plan for outpatient ICD Coronary artery disease status post PCI -continue Plavix 75 mg p.o. daily and rosuvastatin 20 mg every evening -has an aspirin allergy Hyperlipidemia -continue rosuvastatin 20 mg every evening History of Present Illness History of Present Illness Consult date/time: 04/15/25 10:44 Requesting physician: Rosario Alberto DO Consult reason: congestive heart failure Reason For Visit: Heart Failure Narrative: 79-year-old woman with CAD (STEMI sp LAD PCI 01/2025), chronic systolic heart failure (biventricular failure; LVEF 20-25% who refuse LifeVest but is considering ICD), post PCI atrial fibrillation which has since resolved, insulin-dependent diabetes, history of lower GI bleed associated with Eliquis, history of CVA, and history of pulmonary embolism presents with orthopnea and shortness of breath. Shortness of breath with physical activity has started 3 days ago and would occur intermittently throughout the day. She describes as a form of air hunger that resolves with a deep breath the typically comes on with physical activity of uncertain degree. Two days ago she started to notice significant dyspnea when she lays down to rest. Denies any chest discomfort or lower extremity swelling. Denies any changes in her medications or diet. She had been admitted about 2 weeks ago for possible URI/pneumonia for which she was started on fluids, steroids, and antibiotics. Denies any syncopal events or palpitations. Review of Systems Cardiovascular: Cardiovascular: Reports as per HPI Respiratory: Respiratory: Reports as per HPI [facility] Past Medical History Medical History (Updated 04/15/25 @ 10:52 by Omer Rios MD) Hyperlipidemia LDL goal <70 Type 2 diabetes mellitus treated with insulin History of Clostridioides difficile colitis C diff colitis x6 with last episode June 2024 GERD (gastroesophageal reflux disease) ST elevation (STEMI) myocardial infarction 01/14/25 99% inclusion LAD with placement of drug-eluting stent Moderate pulmonary hypertension Ischemic cardiomyopathy With biventricular heart failure EF of 20-25% and diastolic dysfunction as well as moderate pulmonary hypertension Orthostatic hypotension Hx of half-way use of blood thinners On hold after lower GI bleed March 2025 Colon, diverticulosis Anxiety and depression TIA (transient ischemic attack) (~2012) HTN (hypertension) Chronic headaches Arthritis Surgical History Surgical History (Updated 04/14/25 @ 20:38 by Rosario Alberto DO) History of coronary artery stent placement (01/14/25) 99% occlusion of the mid LAD with on X 3.5 x 15 drug-eluting stent placed over a bifurcating lesion. History of hand surgery trigger finger -right 3rd finger x3 History of bladder suspension procedure History of arthroscopy of left knee H/O: hysterectomy (~1979) Family History Family History Father Hypertension Mother Breast cancer Social History Social History (Updated 04/15/25 @ 08:21 by Rosario Alberto DO) Social History: She has been since proximally 2022. 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 She smokes a pack of cigarettes per day for 4 years quit smoking in the . She denies any illicit substance use. She very rarely drinks alcohol. Code status: Full code Healthcare power of process consultant: La Liao (daughter) Smoking status: Former smoker Tobacco type: cigarettes Smoking end date: 05/06/79 Additional smoking assessment comments: quit smoking about 40 years ago Alcohol intake: never Drinks per week: 1 Alcohol use details: OCC. Substance use: never Substance use type: does not use Lack of Transportation: No Lack of Food: Never True Current Housing: I Have Housing Concerned About Future Housing: No Difficulty Paying Gas/Electric Bills: No Difficulty Paying for Meds: No Currently Unemployed: No Education: Associate Degree Difficulty w/ Childcare or Family Care: No Living arrangements: alone Occupation/Education: retired Gender identity (if verbalized by the patient): Female Spiritual care concerns: No Agree to blood products: Yes Meds Home Medications and Allergies Home Medications ?Medication ?Instructions ?Recorded ?Confirmed ?Type acetaminophen 500 mg tablet 500 mg PO Q6H PRN fever or pain 07/03/24 04/15/25 History pen needle, diabetic 32 gauge x #400 ea 07/22/24 04/15/25 Rx / (Chante Pen Needle) 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,americanization teacher,cont #1 ea 10/26/24 04/15/25 Rx (FreeStyle [place] 3 [place]) magnesium oxide 400 mg (241.3 mg 400 mg PO DAILY #90 tabs 02/02/25 04/15/25 Rx magnesium) tablet glucagon 1 mg/0.2 mL subcutaneous 1 mg (0.2 mL) subcut ONCE PRN 02/11/25 04/15/25 Rx auto-injector (Gvoke HypoPen hypoglycemia #0.4 mL 2-Pack) glucose 4 gram chewable tablet 16 g (4 x 4 gram) PO Q15M PRN 02/11/25 04/15/25 Rx (Dex4 Glucose) hypoglycemia #60 tabs metoprolol succinate 25 mg 25 mg PO QAM #30 tabs 02/13/25 04/15/25 Rx tablet,extended release 24 hr (Toprol XL) venlafaxine 150 mg 150 mg PO DAILY #90 caps 02/15/25 04/15/25 Rx capsule,extended release 24 hr clopidogrel 75 mg tablet 75 mg PO DAILY #30 tabs 03/04/25 04/15/25 Rx sacubitril 24 mg-valsartan 26 mg 1 tablet PO BID 03/26/25 04/15/25 History tablet (Entresto) Held on 04/03/25. Instructions: Resume on 04/09/25. Until follow-up with cardiology rosuvastatin 20 mg tablet 20 mg PO QHS #30 tabs 04/07/25 04/15/25 Rx 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 sensor (FreeStyle #2 ea 04/14/25 04/15/25 Rx James 3 Plus Sensor device) empagliflozin 10 mg tablet 10 mg PO DAILY #30 tabs 04/14/25 04/15/25 Rx (Jardiance) insulin glargine 100 unit/mL (3 20 unit (0.2 mL) subcut QPM #15 mL 04/14/25 04/15/25 Rx mL) subcutaneous pen (Basaglar KwikPen U-100 Insulin) insulin lispro 100 unit/mL 5 unit (0.05 mL) subcut TIDWMEAL 04/14/25 04/15/25 Rx subcutaneous pen (Humalog KwikPen #30 mL (U-100) Insulin) linagliptin 5 mg tablet (Tradjenta) 5 mg PO QAM #90 tabs 04/14/25 04/15/25 Rx Allergies Allergy/AdvReac Type Severity Reaction Status Date / Time Penicillins Allergy Mild Swelling Verified 04/14/25 11:27 pentazocine Allergy Mild Unknown Verified 04/14/25 11:27 albuterol Allergy syncope Verified 04/14/25 11:27 aspirin Allergy Swelling Verified 04/14/25 11:27 codeine Allergy Numbness Verified 04/14/25 11:27 Sulfa (Sulfonamide Allergy Unknown Verified 04/14/25 11:27 Antibiotics) ibuprofen AdvReac GI upset Verified 04/14/25 11:27 Vital Signs Vital Signs - 24 hr 04/14/25 15:22 04/14/25 16:31 04/14/25 16:32 Temperature 37.1 C Pulse Rate 110 H 101 H Respiratory Rate 20 19 Blood Pressure 106/65 117/73 Pulse Oximetry 99 98 98 Oxygen Delivery Room Air Room Air 04/14/25 18:09 04/14/25 19:02 04/14/25 20:25 Temperature 36.8 C Pulse Rate 109 H 109 H 104 H Respiratory Rate 19 21 H 19 Blood Pressure 116/76 127/81 Pulse Oximetry 98 100 98 Oxygen Delivery 04/14/25 21:00 04/14/25 22:00 04/14/25 23:00 Temperature Pulse Rate 100 100 100 Respiratory Rate 24 H 18 20 Blood Pressure 119/74 124/75 117/73 Pulse Oximetry 95 94 93 Oxygen Delivery 04/15/25 00:15 04/15/25 01:53 04/15/25 02:00 Temperature 37.1 C Pulse Rate 84 100 Respiratory Rate 15 Blood Pressure 109/60 Pulse Oximetry 94 Oxygen Delivery Room Air 04/15/25 04:00 04/15/25 04:00 04/15/25 04:22 Temperature 37.0 C Pulse Rate 60 101 H Respiratory Rate 18 Blood Pressure 115/66 Pulse Oximetry 95 Oxygen Delivery Room Air 04/15/25 06:00 04/15/25 08:00 04/15/25 09:10 Temperature 36.7 C Pulse Rate 101 H 94 102 H Respiratory Rate 20 Blood Pressure 124/71 Pulse Oximetry 97 Oxygen Delivery Exam Const: General: comfortable HENMT: Mouth: Yes moist mucous membranes Eyes: EOM: EOMs intact bilaterally Neck: Other: JVD positive Resp: Effort & Inspection: normal respiratory effort Auscultation: rales Cardio: Rate: regular rate Rhythm: regular rhythm Heart sounds: Murmur heart sound present Neuro: Speech: normal speech Extrem: General: no pedal edema Results Labs and Meds 04/15/25 03:54 04/15/25 03:54 Lab results: Cardiac Enzymes 04/14/25 Range/Units 16:58 AST 33 (14-36) U/L Troponin I 0.029 (0.000-0.034) ng/mL Coagulation 04/14/25 Range/Units 19:45 PT 17.8 H (11.1-14.7) Seconds APTT 39.8 H (22.3-36.8) Seconds CBC 04/14/25 04/15/25 Range/Units 16:58 03:54 WBC 10.2 H 10.9 H (4.5-10.0) K/mm3 RBC 3.88 L 4.02 L (4.2-5.4) M/mm3 Hgb 12.1 12.6 (12.0-15.0) g/dL Hct 38.1 38.6 (37.0-47.0) % Plt Count 317 297 (150-375) k/mm3 Lymph # (Auto) 2.23 (0.9-3.2) K/mm3 Benson # (Auto) 1.0 H (0.1-0.6) K/mm3 Eos # (Auto) 0.3 (0-0.3) K/mm3 Baso # (Auto) 0.1 (0.0-0.1) K/mm3 Comprehensive Metabolic Panel 04/14/25 04/15/25 Range/Units 16:58 03:54 Sodium 139 137 (137-145) mmol/L Potassium 4.4 3.3 L (3.4-5.0) mmol/L Chloride 108 H 101 (98-107) mmol/L Carbon Dioxide 23 28 (22-30) mmol/L BUN 18 H 19 H (7-17) mg/dL Creatinine 0.97 1.12 H (0.7-1.0) mg/dL Glucose 146 H 161 H (65-110) mg/dL Calcium 9.3 9.0 (8.4-10.2) mg/dL AST 33 (14-36) U/L ALT 20 (6-35) U/L Alkaline Phosphatase 80 (38-126) U/L Total Protein 7.0 (6.3-8.2) g/dL Albumin 3.9 (3.5-5.1) g/dL Intake and Output 04/14/25 04/15/25 04/15/25 23:59 07:59 15:59 Intake Total 550 120 Output Total 1100 Balance -550 120 Intake: Oral 550 120 Output: Urine 1100 Other: # Urine Diapers 1 Patient Weight 04/15/25 23:59 Weight 76.5 kg
[2025-04-15 12:36] LABS: Anion Gap 7 mmol/L (4-12); Blood Urea Nitrogen 21 mg/dL (7-17); Calcium 9.2 mg/dL (8.4-10.2); Carbon Dioxide 30 mmol/L (22-30); Chloride 100 mmol/L (98-107); Estimated CRCL calculation 35 ml/min; Estimated Glomerular Filt Rate 46; Glucose 131 mg/dL (65-110); Magnesium 1.7 mg/dL (1.6-2.3); Potassium 3.9 mmol/L (3.4-5.0); Sodium 137 mmol/L (137-145)
--- NOTE | 2025-04-15 16:34 | PM.IMPN2 ---
Assessment and Plan Assessment and Plan (1) Acute on chronic diastolic CHF (congestive heart failure): Code(s): I50.33 - Acute on chronic diastolic (congestive) heart failure Status: Acute (2) Ischemic cardiomyopathy: Code(s): I25.5 - Ischemic cardiomyopathy Status: Chronic (3) QT prolongation: Code(s): R94.31 - Abnormal electrocardiogram [ECG] [EKG] Status: Acute (4) HTN (hypertension): Qualifiers: Hypertension type: primary hypertension Qualified Code(s): I10 - Essential (primary) hypertension Code(s): I10 - Essential (primary) hypertension Status: Acute (5) Paroxysmal atrial fibrillation: Code(s): I48.0 - Paroxysmal atrial fibrillation Status: Acute (6) Type 2 diabetes mellitus treated with insulin: Code(s): E11.9 - Type 2 diabetes mellitus without complications; Z79.4 - terminal supervisor (current) use of insulin Status: Acute Plan Patient with cough, and shortness breath has chronic systolic heart failure (biventricular failure; LVEF 20-25%, patient will be seen by construction foreman and further recommendation to follow, patient stats she is feeling better compared to when she arrived and not as short of breath, will monitor. Patient has acute CHF exacerbation in the setting of chronic ischemic cardiomyopathy. Patient was given a dose of Lasix in the ER last night and has had good response. The patient appears relatively euvolemic currently. Will decrease Lasix dosing from twice daily down to once daily. Will monitor strict I&O's and daily weights. Will resume home Jardiance, Entresto, Plavix and beta-christa. Cardiology was consulted from the ER. Will place patient on a 2 g sodium restricted diet. The patient currently in sinus rhythm will monitor on telemetry. Eliquis on hold due to recent lower GI bleed. Patient does have mild QT prolongation. Will discontinue Zofran in refrain from use of other QT prolonging medications. Will repeat electrolyte panel in a.m.. Patient is glucose is is stable. Will resume home Lantus and mealtime bolus insulin. Pharmacy to adjust Lantus dosing up to 20%. Low-dose sliding scale insulin with Accu-Cheks a.c. HS and hypoglycemia protocol in order. Will transfer patient to medical floor with telemetry. Subjective Date/time seen: 04/15/25 16:34 Interval history: Productive cough for 2 weeks H&P-Narrative: 79-year-old female with past medical history of prior CVA, distant history of pulmonary embolism, insulin-dependent diabetes mellitus, orthostatic hypotension, STEMI 01/2025 with subsequent ischemic cardiomyopathy with biventricular failure EF of 20-25% (refusing LifeVest) and post reperfusion atrial fibrillation with subsequent admission for lower GI bleed associated with Eliquis 03/26/2025 who presented to the ER who presented to the ER with orthopnea she for the last 2 days. The patient reports that his she has not noticed much shortness of breath with activity but she is feeling panicked when she lays down and cannot catch her breath. She has not noticed any abdominal swelling or lower extremity swelling. She denies any chest pain or palpitations. She has been compliant with a low-sodium diet and has been compliant with her cardiac medications. She reports that she feels significantly better after receiving Lasix last evening. She has had over a L urine output since Lasix administration. She does have a cough but she states that her cough has been chronic for a couple of years. She denies any fevers or chills. She denies any ill contacts. COVID flu and RSV PCR were negative. She does not have a scale at home to wear self. She is not on diuretic therapy at home. Patient with cough, and shortness breath has chronic systolic heart failure (biventricular failure; LVEF 20-25%, patient will be seen by construction foreman and further recommendation to follow, patient stats she is feeling better compared to when she arrived and not as short of breath, will monitor. Review of Systems Cardiovascular: Cardiovascular: Reports as per HPI Respiratory: Respiratory: Reports as per HPI Exam Narrative: Patient is comfortable, NAD HEENT: eyes are clear and none icteric LUNGS:CTA HEART: RR S1S2 ABD: BS+, Soft and nontender Lower extremities: no edema SKIN: nonjaundiced Neuro: grossly intact. Objective Data Vital Signs Vital Signs: Vital Signs - 24 hr 04/14/25 18:09 04/14/25 19:02 04/14/25 20:25 Temperature 36.8 C Pulse Rate 109 H 109 H 104 H Respiratory Rate 19 21 H 19 Blood Pressure 116/76 127/81 Pulse Oximetry 98 100 98 Oxygen Delivery 04/14/25 21:00 04/14/25 22:00 04/14/25 23:00 Temperature Pulse Rate 100 100 100 Respiratory Rate 24 H 18 20 Blood Pressure 119/74 124/75 117/73 Pulse Oximetry 95 94 93 Oxygen Delivery 04/15/25 00:15 04/15/25 01:53 04/15/25 02:00 Temperature 37.1 C Pulse Rate 84 100 Respiratory Rate 15 Blood Pressure 109/60 Pulse Oximetry 94 Oxygen Delivery Room Air 04/15/25 04:00 04/15/25 04:00 04/15/25 04:22 Temperature 37.0 C Pulse Rate 60 101 H Respiratory Rate 18 Blood Pressure 115/66 Pulse Oximetry 95 Oxygen Delivery Room Air 04/15/25 06:00 04/15/25 08:00 04/15/25 08:00 Temperature 36.7 C Pulse Rate 101 H 94 103 H Respiratory Rate 20 Blood Pressure 124/71 Pulse Oximetry 97 Oxygen Delivery 04/15/25 09:10 04/15/25 10:00 04/15/25 11:51 Temperature Pulse Rate 102 H 100 Respiratory Rate Blood Pressure Pulse Oximetry 98 Oxygen Delivery Room Air 04/15/25 11:55 04/15/25 12:00 04/15/25 12:00 Temperature 36.6 C Pulse Rate 89 98 Respiratory Rate 20 Blood Pressure 93/59 L 93/59 L Pulse Oximetry 95 Oxygen Delivery 04/15/25 14:00 04/15/25 16:00 Temperature Pulse Rate 96 98 Respiratory Rate Blood Pressure Pulse Oximetry Oxygen Delivery Intake/Output Intake/Output: Intake & Output 04/12/25 04/13/25 04/14/25 04/15/25 23:59 23:59 23:59 23:59 Intake Total 910 Output Total 1100 Balance -190 Meds/Results Medications: Active Medications Generic Name Dose Route Start Last Admin Trade Name Freq PRN Reason Stop Dose Admin Acetaminophen 650 mg 04/14/25 18:11 Acetaminophen 325 Mg Tablet PO Q4H PRN Mild Pain (1-3) or Fever Calcium Carbonate 200 mg 04/14/25 20:18 Calcium Carbonate (Tums) 500 Mg (200 Mg Elemental) PO Q6H PRN Indigestion Clopidogrel Bisulfate 75 mg 04/15/25 09:00 04/15/25 09:10 Clopidogrel Bisulfate 75 Mg Tablet PO 75 mg DAILY DOYLE Administration Dextrose 12.5 gm 04/14/25 20:21 Dextrose 50% 25 Gm/50 Ml Syringe IV PUSH PRN PRN Hypoglycemia Protocol Empagliflozin 10 mg 04/15/25 09:00 04/15/25 09:10 Empagliflozin 10 Mg Tablet PO 10 mg DAILY DOYLE Administration Furosemide 40 mg 04/15/25 09:00 04/15/25 10:14 Furosemide Inj 40 Mg/4 Ml Vial IV PUSH 40 mg DAILY DOYLE Administration Glucagon 1 mg 04/14/25 20:21 Glucagon For Inj 1 Mg Vial IM PRN PRN Hypoglycemia Protocol Glucose 15 gm 04/14/25 20:21 Glucose Oral Gel 15 Gm Of Glucse In 37.5 Gm Tube PO PRN PRN Hypoglycemia Protocol Dextrose 1,000 mls @ 100 mls/hr 04/14/25 20:21 Dextrose 5% 1,000 Ml IVPB PRN PRN Hypoglycemia Protocol Insulin Aspart 2 - 5 units 04/15/25 08:00 04/15/25 11:43 Insulin Aspart (*Bkc) 100 Units/Ml SUB-Q Not Given TIDWM DOYLE Protocol Insulin Aspart 5 units 04/15/25 08:30 04/15/25 11:43 Insulin Aspart (*Bkc) 100 Units/Ml SUB-Q 5 units TIDWM DOYLE Administration Insulin Glargine 16 units 04/15/25 21:00 Insulin Glargine (*Bkc) 100 Units/Ml SUB-Q HS DOYLE Magnesium Oxide 400 mg 04/15/25 09:00 04/15/25 09:10 Magnesium Oxide 400 Mg Tablet PO 400 mg DAILY DOYLE Administration Metoprolol Succinate 25 mg 04/15/25 09:00 04/15/25 09:10 Metoprolol Succinate Ext Rel 25 Mg Tabcr PO 25 mg QAM DOYLE Administration Rosuvastatin Calcium 20 mg 04/15/25 21:00 Rosuvastatin 20 Mg Tablet PO QHS DOYLE Sacubitril/Valsartan 1 tab 04/15/25 09:00 04/15/25 09:10 Sacubitril/Valsartan 24-26 Mg Tablet PO 1 tab Q12HR DOYLE Administration Sitagliptin Phosphate 100 mg 04/15/25 09:00 04/15/25 09:09 Sitagliptin Phosphate 100 Mg Tablet PO 100 mg QAM DOYLE Administration Venlafaxine HCl 150 mg 04/15/25 09:00 04/15/25 09:10 Venlafaxine Hcl Xr 75 Mg Cap.Er.24h PO 150 mg DAILY DOYLE Administration Radiology Results: ITS Impressions Chest X-Ray 04/14/25 17:31 IMPRESSION: 1. Significant cardiomegaly and atherosclerotic aorta. 2. Congestive changes of lung bases with small left pleural effusion and blunting of right costophrenic angle. Labs Labs: Laboratory Results - last 24 hr 04/14/25 04/14/25 04/14/25 16:58 19:45 22:23 WBC 10.2 H RBC 3.88 L Hgb 12.1 Hct 38.1 MCV 98.2 MCH 31.2 MCHC 31.8 L RDW 14.3 Plt Count 317 MPV 10.2 Immature Gran % (Auto) 0.5 Neut % (Auto) 64.4 Lymph % (Auto) 22.0 [place] % (Auto) 9.8 H Eos % (Auto) 2.8 Baso % (Auto) 0.5 Lymph # (Auto) 2.23 [place] # (Auto) 1.0 H Eos # (Auto) 0.3 Baso # (Auto) 0.1 Abs Immat Gran (auto) 0.05 H Absolute Neuts (auto) 6.6 Absolute Nucleated RBC 0.000 Nucleated RBC % 0.0 PT 17.8 H INR 1.5 APTT 39.8 H Sodium 139 Potassium 4.4 Chloride 108 H Carbon Dioxide 23 Anion Gap 8 BUN 18 H Creatinine 0.97 Estim Creat Clear Calc 41 Estimated GFR 55 L Glucose 146 H POC Capillary Glucose Calcium 9.3 Magnesium Total Bilirubin 0.6 AST 33 ALT 20 Alkaline Phosphatase 80 Troponin I 0.029 NT-Pro-B Natriuret Pep 7330 H Total Protein 7.0 Albumin 3.9 Influenza A (RT-PCR) Negative Influenza B (RT-PCR) Negative RSV (RT-PCR) Negative SARS-CoV-2 RNA (RT-PCR) Negative 04/15/25 04/15/25 04/15/25 00:46 03:54 07:53 WBC 10.9 H RBC 4.02 L Hgb 12.6 Hct 38.6 MCV 96.0 MCH 31.3 MCHC 32.6 RDW 14.0 Plt Count 297 MPV 10.1 Immature Gran % (Auto) Neut % (Auto) Lymph % (Auto) [place] % (Auto) Eos % (Auto) Baso % (Auto) Lymph # (Auto) [place] # (Auto) Eos # (Auto) Baso # (Auto) Abs Immat Gran (auto) Absolute Neuts (auto) Absolute Nucleated RBC Nucleated RBC % PT INR APTT Sodium 137 Potassium 3.3 L Chloride 101 Carbon Dioxide 28 Anion Gap 8 BUN 19 H Creatinine 1.12 H Estim Creat Clear Calc 36 Estimated GFR 47 L Glucose 161 H POC Capillary Glucose 204 H 174 H Calcium 9.0 Magnesium 1.7 Total Bilirubin AST ALT Alkaline Phosphatase Troponin I NT-Pro-B Natriuret Pep Total Protein Albumin Influenza A (RT-PCR) Influenza B (RT-PCR) RSV (RT-PCR) SARS-CoV-2 RNA (RT-PCR) 04/15/25 04/15/25 04/15/25 11:09 12:12 15:47 WBC RBC Hgb Hct MCV MCH MCHC RDW Plt Count MPV Immature Gran % (Auto) Neut % (Auto) Lymph % (Auto) [place] % (Auto) Eos % (Auto) Baso % (Auto) Lymph # (Auto) [place] # (Auto) Eos # (Auto) Baso # (Auto) Abs Immat Gran (auto) Absolute Neuts (auto) Absolute Nucleated RBC Nucleated RBC % PT INR APTT Sodium 137 Potassium 3.9 Chloride 100 Carbon Dioxide 30 Anion Gap 7 BUN 21 H Creatinine 1.14 H Estim Creat Clear Calc 35 Estimated GFR 46 L Glucose 131 H POC Capillary Glucose 165 H 161 H Calcium 9.2 Magnesium 1.7 Total Bilirubin AST ALT Alkaline Phosphatase Troponin I NT-Pro-B Natriuret Pep Total Protein Albumin Influenza A (RT-PCR) Influenza B (RT-PCR) RSV (RT-PCR) SARS-CoV-2 RNA (RT-PCR)
[2025-04-15] MEDS: ROSUVASTATIN 20 MG TABLET PO (22:13)
[2025-04-16] VITALS (17 sets, daily range): BP systolic 81–119; BP diastolic 41–91; PULSE 71–99; RESP 16–21; TEMP 36.2–36.9; O2SAT 93–100
[2025-04-16 04:14] LABS: Hematocrit 42.1 % (37.0-47.0); Hemoglobin 13.4 g/dL (12.0-15.0); Mean Corpuscular HGB Conc 31.8 g/dl (32-36); Mean Corpuscular Hemoglobin 30.7 pg (26-34); Mean Corpuscular Volume 96.6 fl (80-100); Platelet Count Result 327 k/mm3 (150-375); Red Blood Count 4.36 M/mm3 (4.2-5.4); White Blood Count 9.9 K/mm3 (4.5-10.0)
[2025-04-16 04:46] LABS: Anion Gap 8 mmol/L (4-12); Blood Urea Nitrogen 24 mg/dL (7-17); Calcium 8.7 mg/dL (8.4-10.2); Carbon Dioxide 24 mmol/L (22-30); Chloride 101 mmol/L (98-107); Estimated CRCL calculation 35 ml/min; Estimated Glomerular Filt Rate 45; Glucose 229 mg/dL (65-110); Magnesium 1.8 mg/dL (1.6-2.3); Potassium 3.6 mmol/L (3.4-5.0); Sodium 133 mmol/L (137-145)
[2025-04-16] MEDS: SACUBITRIL/VALSARTAN 24-26 MG TABLET 1 TAB PO (08:38)
[2025-04-16] MEDS: EMPAGLIFLOZIN 10 MG TABLET PO (08:38)
[2025-04-16] MEDS: METOPROLOL SUCCINATE EXT REL 25 MG TABCR PO (08:38)
[2025-04-16] MEDS: CLOPIDOGREL BISULFATE 75 MG TABLET PO (08:38)
[2025-04-16] MEDS: VENLAFAXINE HCL XR 75 MG CAP.ER.24H 150 MG PO (08:39)
[2025-04-16] MEDS: MAGNESIUM OXIDE 400 MG TABLET PO (08:39)
[2025-04-16] MEDS: INSULIN ASPART (*BKC) 100 UNITS/ML SUB-Q ×3 (08:39→11:55)
[2025-04-16] MEDS: FUROSEMIDE INJ 40 MG/4 ML VIAL IV PUSH (08:45)
--- NOTE | 2025-04-16 10:22 | PM.IMPN2 ---
Assessment and Plan Assessment and Plan (1) Acute on chronic diastolic CHF (congestive heart failure): Code(s): I50.33 - Acute on chronic diastolic (congestive) heart failure Status: Acute Assessment and Plan: Cardiology following, appreciate recommendations --Continuing lasix 40mg IVP daily --Entresto / BID --Jardiance 10mg daily --Planning outpatient ICD (2) Ischemic cardiomyopathy: Code(s): I25.5 - Ischemic cardiomyopathy Status: Chronic Assessment and Plan: Treatment of CHF as noted (3) QT prolongation: Code(s): R94.31 - Abnormal electrocardiogram [ECG] [EKG] Status: Acute Assessment and Plan: Avoid QTc prolonging medications (4) HTN (hypertension): Qualifiers: Hypertension type: primary hypertension Qualified Code(s): I10 - Essential (primary) hypertension Code(s): I10 - Essential (primary) hypertension Status: Acute (5) Paroxysmal atrial fibrillation: Code(s): I48.0 - Paroxysmal atrial fibrillation Status: Acute (6) Type 2 diabetes mellitus treated with insulin: Code(s): E11.9 - Type 2 diabetes mellitus without complications; Z79.4 - terminal superintendent (current) use of insulin Status: Acute Assessment and Plan: Home meds: Lantus 16 units daily, Sitagliptin 100mg, Jardiance 10mg --Continue Lantus 16, Added lispro 5 TID, SSI Blood sugars have been intermittently controlled 89-274 today (7) Hypotension: Code(s): I95.9 - Hypotension, unspecified Status: Resolved Assessment and Plan: Blood pressure low, 85/61 04/16 Asymptomatic Cardiology adjusting entresto and lasix as noted for CHF --Check orthostatic when getting up --Fall precautions. Bedrest until BP >90 or can check orthostatics in AM if remains asymptomatic Plan Reason for hospitalization 79-year-old female with past medical history of prior CVA, distant history of pulmonary embolism, insulin-dependent diabetes mellitus, orthostatic hypotension, STEMI 01/2025 with subsequent ischemic cardiomyopathy with biventricular failure EF of 20-25% (refusing LifeVest) and post reperfusion atrial fibrillation with subsequent admission for lower GI bleed associated with Eliquis 03/26/2025 who presented to the ER who presented to the ER with orthopnea she for the last 2 days. Patient with cough, and shortness breath has chronic systolic heart failure (biventricular failure; LVEF 20-25%). Cardiology consulted and titrating medications, lasix and entresto. BP soft, 85/61 04/16. QTc prolonged so avoiding QTc prolonging medications. Blood sugars above goal, adusting insulin Subjective Date/time seen: 04/16/25 10:22 Interval history: Cardiology following, titrating entresto. Blood pressure low, 85/61-119/69. Feeling ok, not dizzy with low blood pressures, but hasn't been out of bed yet. Discussed checking orthostatic vital signs if blood pressure is low. Blood sugars above goal, recently started mealtime insulin outpatient. Exam Narrative: Patient is comfortable, NAD HEENT: eyes are clear and none icteric LUNGS:CTA HEART: RR S1S2 ABD: BS+, Soft and nontender Lower extremities: no edema SKIN: nonjaundiced Neuro: grossly intact. Objective Data Vital Signs Vital Signs: Vital Signs - 24 hr 04/15/25 11:51 04/15/25 11:55 04/15/25 12:00 Temperature 97.8 F Pulse Rate 89 98 Respiratory Rate 20 Blood Pressure 93/59 L Pulse Oximetry 98 95 Oxygen Delivery Room Air 04/15/25 12:00 04/15/25 14:00 04/15/25 16:00 Temperature Pulse Rate 96 98 Respiratory Rate Blood Pressure 93/59 L Pulse Oximetry Oxygen Delivery 04/15/25 16:00 04/15/25 18:00 04/15/25 19:10 Temperature 98.3 F Pulse Rate 83 99 Respiratory Rate 16 Blood Pressure 81/48 L 115/99 H Pulse Oximetry 94 Oxygen Delivery 04/15/25 20:00 04/15/25 20:00 04/15/25 20:00 Temperature 97.7 F Pulse Rate 93 86 Respiratory Rate 18 Blood Pressure 81/60 L Pulse Oximetry 91 Oxygen Delivery Room Air 04/15/25 22:00 04/16/25 00:00 04/16/25 00:00 Temperature 98 F Pulse Rate 99 Respiratory Rate 16 Blood Pressure 95/49 L 95/51 L Pulse Oximetry 93 Oxygen Delivery Room Air 04/16/25 00:00 04/16/25 04:00 04/16/25 04:00 Temperature 97.5 F L Pulse Rate 98 83 Respiratory Rate 16 Blood Pressure 81/41 L Pulse Oximetry 98 Oxygen Delivery Room Air 04/16/25 04:00 04/16/25 04:30 04/16/25 06:00 Temperature Pulse Rate 88 91 Respiratory Rate Blood Pressure 101/73 Pulse Oximetry Oxygen Delivery 04/16/25 07:38 04/16/25 08:38 Temperature 98.4 F Pulse Rate 95 71 Respiratory Rate 16 Blood Pressure 119/69 Pulse Oximetry 97 Oxygen Delivery Intake/Output Intake/Output: Intake & Output 04/13/25 04/14/25 04/15/25 04/16/25 23:59 23:59 23:59 23:59 Intake Total 1550 1160 Output Total 1400 650 Balance 150 510 Meds/Results Medications: Active Medications Generic Name Dose Route Start Last Admin Trade Name Freq PRN Reason Stop Dose Admin Acetaminophen 650 mg 04/14/25 18:11 Acetaminophen 325 Mg Tablet PO Q4H PRN Mild Pain (1-3) or Fever Calcium Carbonate 200 mg 04/14/25 20:18 Calcium Carbonate (Tums) 500 Mg (200 Mg Elemental) PO Q6H PRN Indigestion Clopidogrel Bisulfate 75 mg 04/15/25 09:00 04/16/25 08:38 Clopidogrel Bisulfate 75 Mg Tablet PO 75 mg DAILY DOYLE Administration Dextrose 12.5 gm 04/14/25 20:21 Dextrose 50% 25 Gm/50 Ml Syringe IV PUSH PRN PRN Hypoglycemia Protocol Empagliflozin 10 mg 04/15/25 09:00 04/16/25 08:38 Empagliflozin 10 Mg Tablet PO 10 mg DAILY DOYLE Administration Furosemide 40 mg 04/15/25 09:00 04/16/25 08:45 Furosemide Inj 40 Mg/4 Ml Vial IV PUSH 40 mg DAILY DOYLE Administration Glucagon 1 mg 04/14/25 20:21 Glucagon For Inj 1 Mg Vial IM PRN PRN Hypoglycemia Protocol Glucose 15 gm 04/14/25 20:21 Glucose Oral Gel 15 Gm Of Glucse In 37.5 Gm Tube PO PRN PRN Hypoglycemia Protocol Dextrose 1,000 mls @ 100 mls/hr 04/14/25 20:21 Dextrose 5% 1,000 Ml IVPB PRN PRN Hypoglycemia Protocol Insulin Aspart 2 - 5 units 04/15/25 08:00 04/16/25 08:37 Insulin Aspart (*Bkc) 100 Units/Ml SUB-Q Not Given TIDWM DOYLE Protocol Insulin Aspart 5 units 04/15/25 08:30 04/16/25 08:39 Insulin Aspart (*Bkc) 100 Units/Ml SUB-Q 5 units TIDWM DOYLE Administration Insulin Glargine 16 units 04/15/25 21:00 04/15/25 20:28 Insulin Glargine (*Bkc) 100 Units/Ml SUB-Q Not Given HS [facility] Magnesium Oxide 400 mg 04/15/25 09:00 04/16/25 08:39 Magnesium Oxide 400 Mg Tablet PO 400 mg DAILY DOYLE Administration Metoprolol Succinate 25 mg 04/15/25 09:00 04/16/25 08:38 Metoprolol Succinate Ext Rel 25 Mg Tabcr PO 25 mg QAM DOYLE Administration Rosuvastatin Calcium 20 mg 04/15/25 21:00 04/15/25 22:13 Rosuvastatin 20 Mg Tablet PO 20 mg QHS DOYLE Administration Sacubitril/Valsartan 1 tab 04/15/25 09:00 04/16/25 08:38 Sacubitril/Valsartan 24-26 Mg Tablet PO 1 tab Q12HR DOYLE Administration Sitagliptin Phosphate 100 mg 04/15/25 09:00 04/16/25 08:39 Sitagliptin Phosphate 100 Mg Tablet PO 100 mg QAM DOYLE Administration Venlafaxine HCl 150 mg 04/15/25 09:00 04/16/25 08:39 Venlafaxine Hcl Xr 75 Mg Cap.Er.24h PO 150 mg DAILY DOYLE Administration Radiology Results: ITS Impressions Chest X-Ray 04/14/25 17:31 IMPRESSION: 1. Significant cardiomegaly and atherosclerotic aorta. 2. Congestive changes of lung bases with small left pleural effusion and blunting of right costophrenic angle. Labs Labs: Laboratory Results - last 24 hr 04/15/25 04/15/25 04/15/25 11:09 12:12 15:47 WBC RBC Hgb Hct MCV MCH MCHC RDW Plt Count MPV Sodium 137 Potassium 3.9 Chloride 100 Carbon Dioxide 30 Anion Gap 7 BUN 21 H Creatinine 1.14 H Estim Creat Clear Calc 35 Estimated GFR 46 L Glucose 131 H POC Capillary Glucose 165 H 161 H Calcium 9.2 Magnesium 1.7 04/15/25 04/16/25 04/16/25 20:16 04:03 07:24 WBC 9.9 RBC 4.36 Hgb 13.4 Hct 42.1 MCV 96.6 MCH 30.7 MCHC 31.8 L RDW 13.9 Plt Count 327 MPV 10.1 Sodium 133 L Potassium 3.6 Chloride 101 Carbon Dioxide 24 Anion Gap 8 BUN 24 H Creatinine 1.15 H Estim Creat Clear Calc 35 Estimated GFR 45 L Glucose 229 H POC Capillary Glucose 198 H 198 H Calcium 8.7 Magnesium 1.8 Quality VTE Prophylaxis VTE prophylaxis: mechanical ordered (SCDs) Hospitalist MIPS Advance Care Plan I have confirmed that the patient's Advanced Care Plan is present, code status is documented, or surrogate decision maker is listed in patient medical record.: Yes Medication Reconciliation I have utilized all available resources to obtain, update and review the patients current medications (includes all prescriptions, OTC, herbals, cannabis, and nutritional supplements).: Yes
--- NOTE | 2025-04-16 11:38 | P.CDI_ITS ---
CDI Query Clarification Request Please clarify type of heart failure if known. * Systolic * Diastolic * Combined Systolic and Diastolic * Unknown Cardiology documented: Assessment and plan (1) Congestive heart failure: Code(s): I50.9 - Heart failure, unspecified Status: Acute (2) Coronary artery disease: Code(s): I25.10 - Atherosclerotic heart disease of [place] coronary artery without angina pectoris Status: Acute Plan 79-year-old woman with CAD (STEMI sp LAD PCI 01/2025), chronic systolic heart failure (biventricular failure; LVEF 20-25% who refuse LifeVest but is considering ICD), post PCI atrial fibrillation which has since resolved, insulin-dependent diabetes, history of lower GI bleed associated with Eliquis, history of CVA, and history of pulmonary embolism presents with orthopnea and shortness of breath Acute on chronic systolic heart failure (biventricular failure; LVEF 20-25%) -continue Lasix 40 mg IV push daily -continue Entresto 24-26 mg p.o. b.i.d., metoprolol succinate 25 mg p.o. daily, and Jardiance 10 mg p.o. daily -plan for outpatient ICD Hospitalist documented: Assessment and Plan (1) Acute on chronic diastolic CHF (congestive heart failure): Code(s): I50.33 - Acute on chronic diastolic (congestive) heart failure Status: Acute (2) Ischemic cardiomyopathy: Code(s): I25.5 - Ischemic cardiomyopathy Status: Chronic (3) QT prolongation: Code(s): R94.31 - Abnormal electrocardiogram [ECG] [EKG] Plan Patient with cough, and shortness breath has chronic systolic heart failure (biventricular failure; LVEF 20-25%, patient will be seen by security checker and further recommendation to follow, patient stats she is feeling better compared to when she arrived and not as short of breath, will monitor. <Drea Joel RN - Last Filed: 04/16/25 11:41> Clarified Diagnosis Clarified Diagnosis: Acute on chronic systolic and diastolic CHF <Nata Montaño APRN - Last F iled: 04/17/25 11:21>
--- NOTE | 2025-04-16 13:07 | P.PNCA_ITS ---
Progress Note: A&P Assessment and Plan (1) Congestive heart failure: Code(s): I50.9 - Heart failure, unspecified Status: Acute (2) Coronary artery disease: Code(s): I25.10 - Atherosclerotic heart disease of [place] coronary artery without angina pectoris Status: Acute Plan 79-year-old woman with CAD (STEMI sp LAD PCI 01/2025), chronic systolic heart failure (biventricular failure; LVEF 20-25% who refuse LifeVest but is considering ICD), post PCI atrial fibrillation which has since resolved, insulin-dependent diabetes, history of lower GI bleed associated with Eliquis, history of CVA, and history of pulmonary embolism presents with orthopnea and shortness of breath Acute on chronic systolic heart failure (biventricular failure; LVEF 20-25%) -continue Lasix 40 mg IV push daily -continue Entresto 12-13 mg p.o. b.i.d. (decreased dose because of hypotension), metoprolol succinate 25 mg p.o. daily, and Jardiance 10 mg p.o. daily -plan for outpatient ICD Coronary artery disease status post PCI -continue Plavix 75 mg p.o. daily and rosuvastatin 20 mg every evening -has an aspirin allergy Hyperlipidemia -continue rosuvastatin 20 mg every evening Subjective Date/time seen: 04/16/25 13:07 Interval history: Cardiology follow-up visit for CHF, cardiomyopathy Date of service 04/16/2025: Continues to feel shortness of breath today. Complains of fatigue. Otherwise does not have any complaints. Review of Systems Review of Systems: All systems reviewed & are unremarkable except as noted in HPI and below Cardiovascular: Cardiovascular: Reports as per HPI Respiratory: Respiratory: Reports as per HPI Exam Const: General: comfortable HENMT: Mouth: Yes moist mucous membranes Eyes: EOM: EOMs intact bilaterally Neck: Neck: normal visual inspection Resp: Effort & Inspection: normal respiratory effort Auscultation: rales bilateral 1/[address] up Cardio: Rate: regular rate Rhythm: regular rhythm Heart sounds: Murmur heart sound present Neuro: Speech: normal speech Extrem: General: no pedal edema Objective Data Vital Signs Vital Signs: Vital Signs - 24 hr 04/15/25 14:00 04/15/25 16:00 04/15/25 16:00 Temperature 36.8 C Pulse Rate 96 98 83 Respiratory Rate 16 Blood Pressure 81/48 L Pulse Oximetry 94 Oxygen Delivery 04/15/25 18:00 04/15/25 19:10 04/15/25 20:00 Temperature 36.5 C Pulse Rate 99 93 Respiratory Rate 18 Blood Pressure 115/99 H 81/60 L Pulse Oximetry 91 Oxygen Delivery 04/15/25 20:00 04/15/25 20:00 04/15/25 22:00 Temperature Pulse Rate 86 Respiratory Rate Blood Pressure 95/49 L Pulse Oximetry Oxygen Delivery Room Air 04/16/25 00:00 04/16/25 00:00 04/16/25 00:00 Temperature 36.6 C Pulse Rate 99 98 Respiratory Rate 16 Blood Pressure 95/51 L Pulse Oximetry 93 Oxygen Delivery Room Air 04/16/25 04:00 04/16/25 04:00 04/16/25 04:00 Temperature 36.4 C L Pulse Rate 83 88 Respiratory Rate 16 Blood Pressure 81/41 L Pulse Oximetry 98 Oxygen Delivery Room Air 04/16/25 04:30 04/16/25 06:00 04/16/25 07:38 Temperature 36.9 C Pulse Rate 91 95 Respiratory Rate 16 Blood Pressure 101/73 119/69 Pulse Oximetry 97 Oxygen Delivery 04/16/25 08:00 04/16/25 08:38 04/16/25 10:00 Temperature Pulse Rate 73 71 91 Respiratory Rate Blood Pressure Pulse Oximetry Oxygen Delivery 04/16/25 11:41 04/16/25 12:00 Temperature 36.4 C Pulse Rate 89 89 Respiratory Rate 18 Blood Pressure 89/58 L Pulse Oximetry 100 Oxygen Delivery Intake/Output Intake/Output: Intake & Output 04/13/25 04/14/25 04/15/25 04/16/25 23:59 23:59 23:59 23:59 Intake Total 1550 1400 Output Total 1400 1300 Balance 150 100 Meds/Results Medications: Active Medications Generic Name Dose Route Start Last Admin Trade Name Freq PRN Reason Stop Dose Admin Acetaminophen 650 mg 04/14/25 18:11 Acetaminophen 325 Mg Tablet PO Q4H PRN Mild Pain (1-3) or Fever Calcium Carbonate 200 mg 04/14/25 20:18 Calcium Carbonate (Tums) 500 Mg (200 Mg Elemental) PO Q6H PRN Indigestion Clopidogrel Bisulfate 75 mg 04/15/25 09:00 04/16/25 08:38 Clopidogrel Bisulfate 75 Mg Tablet PO 75 mg DAILY DOYLE Administration Dextrose 12.5 gm 04/14/25 20:21 Dextrose 50% 25 Gm/50 Ml Syringe IV PUSH PRN PRN Hypoglycemia Protocol Empagliflozin 10 mg 04/15/25 09:00 04/16/25 08:38 Empagliflozin 10 Mg Tablet PO 10 mg DAILY DOYLE Administration Furosemide 40 mg 04/15/25 09:00 04/16/25 08:45 Furosemide Inj 40 Mg/4 Ml Vial IV PUSH 40 mg DAILY DOYLE Administration Glucagon 1 mg 04/14/25 20:21 Glucagon For Inj 1 Mg Vial IM PRN PRN Hypoglycemia Protocol Glucose 15 gm 04/14/25 20:21 Glucose Oral Gel 15 Gm Of Glucse In 37.5 Gm Tube PO PRN PRN Hypoglycemia Protocol Dextrose 1,000 mls @ 100 mls/hr 04/14/25 20:21 Dextrose 5% 1,000 Ml IVPB PRN PRN Hypoglycemia Protocol Insulin Aspart 2 - 5 units 04/15/25 08:00 04/16/25 11:55 Insulin Aspart (*Bkc) 100 Units/Ml SUB-Q 3 units TIDWM DOYLE Administration Protocol Insulin Aspart 5 units 04/15/25 08:30 04/16/25 11:55 Insulin Aspart (*Bkc) 100 Units/Ml SUB-Q 5 units TIDWM DOYLE Administration Insulin Glargine 16 units 04/15/25 21:00 04/15/25 20:28 Insulin Glargine (*Bkc) 100 Units/Ml SUB-Q Not Given HS DOYLE Magnesium Oxide 400 mg 04/15/25 09:00 04/16/25 08:39 Magnesium Oxide 400 Mg Tablet PO 400 mg DAILY DOYLE Administration Metoprolol Succinate 25 mg 04/15/25 09:00 04/16/25 08:38 Metoprolol Succinate Ext Rel 25 Mg Tabcr PO 25 mg QAM DOYLE Administration Rosuvastatin Calcium 20 mg 04/15/25 21:00 04/15/25 22:13 Rosuvastatin 20 Mg Tablet PO 20 mg QHS DOYLE Administration Sacubitril/Valsartan 1 tab 04/16/25 21:00 Sacubitril/Valsartan 12-13 Mg Tablet PO Q12HR DOYLE Sitagliptin Phosphate 100 mg 04/15/25 09:00 04/16/25 08:39 Sitagliptin Phosphate 100 Mg Tablet PO 100 mg QAM DOYLE Administration Venlafaxine HCl 150 mg 04/15/25 09:00 04/16/25 08:39 Venlafaxine Hcl Xr 75 Mg Cap.Er.24h PO 150 mg DAILY DOYLE Administration Radiology Results: ITS Impressions Chest X-Ray 04/14/25 17:31 IMPRESSION: 1. Significant cardiomegaly and atherosclerotic aorta. 2. Congestive changes of lung bases with small left pleural effusion and blunting of right costophrenic angle. Labs Labs: Laboratory Results - last 24 hr 04/15/25 04/15/25 04/16/25 15:47 20:16 04:03 WBC 9.9 RBC 4.36 Hgb 13.4 Hct 42.1 MCV 96.6 MCH 30.7 MCHC 31.8 L RDW 13.9 Plt Count 327 MPV 10.1 Sodium 133 L Potassium 3.6 Chloride 101 Carbon Dioxide 24 Anion Gap 8 BUN 24 H Creatinine 1.15 H Estim Creat Clear Calc 35 Estimated GFR 45 L Glucose 229 H POC Capillary Glucose 161 H 198 H Calcium 8.7 Magnesium 1.8 04/16/25 04/16/25 07:24 11:27 WBC RBC Hgb Hct MCV MCH MCHC RDW Plt Count MPV Sodium Potassium Chloride Carbon Dioxide Anion Gap BUN Creatinine Estim Creat Clear Calc Estimated GFR Glucose POC Capillary Glucose 198 H 274 H Calcium Magnesium Quality VTE Prophylaxis VTE prophylaxis: mechanical ordered (SCDs)
[2025-04-16] MEDS: INSULIN GLARGINE (*BKC) 100 UNITS/ML 16 UNITS SUB-Q (20:28)
[2025-04-16] MEDS: ROSUVASTATIN 20 MG TABLET PO (20:29)
[2025-04-16] MEDS: SACUBITRIL/VALSARTAN 12-13 MG TABLET 1 TAB PO (20:29)
[2025-04-17] VITALS (14 sets, daily range): BP systolic 83–96; BP diastolic 49–69; PULSE 78–99; RESP 16–24; TEMP 36.3–36.7; O2SAT 93–99
[2025-04-17 05:05] LABS: Hematocrit 40.5 % (37.0-47.0); Hemoglobin 13.1 g/dL (12.0-15.0); Mean Corpuscular HGB Conc 32.3 g/dl (32-36); Mean Corpuscular Hemoglobin 31.0 pg (26-34); Mean Corpuscular Volume 95.7 fl (80-100); Platelet Count Result 337 k/mm3 (150-375); Red Blood Count 4.23 M/mm3 (4.2-5.4); White Blood Count 10.3 K/mm3 (4.5-10.0)
[2025-04-17 05:22] LABS: Hemoglobin A1C 8.3 % (<5.7)
[2025-04-17 05:23] LABS: Anion Gap 6 mmol/L (4-12); Blood Urea Nitrogen 31 mg/dL (7-17); Calcium 8.8 mg/dL (8.4-10.2); Carbon Dioxide 30 mmol/L (22-30); Chloride 99 mmol/L (98-107); Estimated CRCL calculation 29 ml/min; Estimated Glomerular Filt Rate 36; Glucose 205 mg/dL (65-110); Magnesium 2.1 mg/dL (1.6-2.3); Potassium 3.7 mmol/L (3.4-5.0); Sodium 135 mmol/L (137-145)
--- NOTE | 2025-04-17 07:23 | PM.IMPN2 ---
Assessment and Plan Assessment and Plan (1) Acute on chronic diastolic CHF (congestive heart failure): Code(s): I50.33 - Acute on chronic diastolic (congestive) heart failure Status: Acute Assessment and Plan: Cardiology following, appreciate recommendations --Stopped lasix 40mg IVP daily, cardiology staring lasix 20mg po daily tomorrow --Entresto 12/ BID & Jardiance 10mg daily on hold --Planning outpatient ICD (2) Ischemic cardiomyopathy: Code(s): I25.5 - Ischemic cardiomyopathy Status: Chronic Assessment and Plan: Treatment of CHF as noted (3) QT prolongation: Code(s): R94.31 - Abnormal electrocardiogram [ECG] [EKG] Status: Acute Assessment and Plan: Avoid QTc prolonging medications (4) HTN (hypertension): Qualifiers: Hypertension type: primary hypertension Qualified Code(s): I10 - Essential (primary) hypertension Code(s): I10 - Essential (primary) hypertension Status: Acute (5) Paroxysmal atrial fibrillation: Code(s): I48.0 - Paroxysmal atrial fibrillation Status: Acute (6) Type 2 diabetes mellitus treated with insulin: Code(s): E11.9 - Type 2 diabetes mellitus without complications; Z79.4 - FCI (current) use of insulin Status: Acute Assessment and Plan: Home meds: Lantus 16 units daily, Sitagliptin 100mg, Jardiance 10mg --Continue Lantus 16, Added lispro 5 TID, SSI Blood sugars have been intermittently controlled, blood sugar 215-280 this morning. Had a blood sugar of 89 yesterday afternoon after 274 at noon and 8 units. (7) Hypotension: Code(s): I95.9 - Hypotension, unspecified Status: Resolved Assessment and Plan: Blood pressure low, 85/61 12/ Asymptomatic Cardiology adjusting entresto and lasix as noted for CHF --Check orthostatic VS daily --Fall precautions. Was up in chair today (8) AMNA (acute kidney injury): Code(s): N17.9 - Acute kidney failure, unspecified Status: Acute Assessment and Plan: Creatinine 1.15<1.4 Held IV lasix this morning Entresto and Jardiance also on hold Recheck BMP this afternoon Plan Reason for hospitalization 79-year-old female with past medical history of prior CVA, distant history of pulmonary embolism, insulin-dependent diabetes mellitus, orthostatic hypotension, STEMI 01/2025 with subsequent ischemic cardiomyopathy with biventricular failure EF of 20-25% (refusing LifeVest) and post reperfusion atrial fibrillation with subsequent admission for lower GI bleed associated with Eliquis 03/26/2025 who presented to the ER who presented to the ER with orthopnea she for the last 2 days. Patient with cough, and shortness breath has chronic systolic heart failure (biventricular failure; LVEF 20-25%). Cardiology consulted and titrating medications, lasix and entresto. BP soft, 85/61 04/16. QTc prolonged so avoiding QTc prolonging medications. Blood sugars above goal, adjusting insulin Time Spent With Patient Time with patient: 15 - 25 minutes Subjective Date/time seen: 04/17/25 10:55 Interval history: Blood pressure soft this morning 86/51, repeat 96/69 New AMNA, Creatinine up to 1.43. Held lasix this morning. Cardiology also discontinued jardiance and entresto today. Recheck BMP this afternoon Is to lie flat, no shortness of breath. Fatigued. Was up in a chair today Exam Narrative: General - Awake and alert. No acute distress Eyes - PERRLA, EOM intact ENT - No thrush, No erythema Neck - No noticeable or palpable swelling Lymph Nodes - No lymphadenopathy Cardiovascular - RRR no m/r/g, no JVD Lungs: Clear to auscultation, No wheezing, no use of accessory muscles or crackles Skin - Skin warm and dry, no wounds or rashes Abdomen - Normal bowel sounds, abdomen soft and nontender Extremities - No edema, cyanosis or clubbing Musculoskeletal - 5/5 strength, normal range of motion, no swollen or erythematous joints. Neurological ? Alert and oriented x 3, CN 2-12 grossly intact. Psych: Normal mood and affect Objective Data Vital Signs Vital Signs: Vital Signs - 24 hr 04/16/25 07:38 04/16/25 08:00 04/16/25 08:38 Temperature 98.4 F Pulse Rate 95 73 71 Respiratory Rate 16 Blood Pressure 119/69 Pulse Oximetry 97 Oxygen Delivery 04/16/25 10:00 04/16/25 11:41 04/16/25 12:00 Temperature 97.6 F Pulse Rate 91 89 89 Respiratory Rate 18 Blood Pressure 89/58 L Pulse Oximetry 100 Oxygen Delivery 04/16/25 14:00 04/16/25 15:51 04/16/25 16:00 Temperature 97.1 F L Pulse Rate 89 91 77 Respiratory Rate 20 Blood Pressure 85/61 L Pulse Oximetry 99 Oxygen Delivery 04/16/25 17:41 04/16/25 19:49 04/16/25 20:00 Temperature 98.2 F Pulse Rate 91 93 Respiratory Rate 21 H Blood Pressure 109/91 H Pulse Oximetry 99 Oxygen Delivery Room Air 04/16/25 20:00 04/16/25 21:48 04/16/25 23:39 Temperature Pulse Rate 97 Respiratory Rate Blood Pressure Pulse Oximetry 98 Oxygen Delivery Room Air Room Air 04/17/25 00:00 04/17/25 00:00 04/17/25 03:43 Temperature 97.6 F Pulse Rate 93 94 Respiratory Rate 24 H Blood Pressure 84/54 L Pulse Oximetry 95 Oxygen Delivery Room Air 04/17/25 04:00 04/17/25 04:00 04/17/25 06:00 Temperature 97.9 F Pulse Rate 78 86 88 Respiratory Rate 20 Blood Pressure 86/51 L Pulse Oximetry 97 Oxygen Delivery Intake/Output Intake/Output: Intake & Output 04/14/25 04/15/25 04/16/25 04/17/25 23:59 23:59 23:59 23:59 Intake Total 1550 2090 422 Output Total 1400 1600 490 Balance 150 490 -68 Meds/Results Medications: Active Medications Generic Name Dose Route Start Last Admin Trade Name Freq PRN Reason Stop Dose Admin Acetaminophen 650 mg 04/14/25 18:11 Acetaminophen 325 Mg Tablet PO Q4H PRN Mild Pain (1-3) or Fever Calcium Carbonate 200 mg 04/14/25 20:18 Calcium Carbonate (Tums) 500 Mg (200 Mg Elemental) PO Q6H PRN Indigestion Clopidogrel Bisulfate 75 mg 04/15/25 09:00 04/16/25 08:38 Clopidogrel Bisulfate 75 Mg Tablet PO 75 mg DAILY DOYLE Administration Dextrose 12.5 gm 04/14/25 20:21 Dextrose 50% 25 Gm/50 Ml Syringe IV PUSH PRN PRN Hypoglycemia Protocol Empagliflozin 10 mg 04/15/25 09:00 04/16/25 08:38 Empagliflozin 10 Mg Tablet PO 10 mg DAILY DOYLE Administration Furosemide 40 mg 04/15/25 09:00 04/16/25 08:45 Furosemide Inj 40 Mg/4 Ml Vial IV PUSH 40 mg DAILY DOYLE Administration Glucagon 1 mg 04/14/25 20:21 Glucagon For Inj 1 Mg Vial IM PRN PRN Hypoglycemia Protocol Glucose 15 gm 04/14/25 20:21 Glucose Oral Gel 15 Gm Of Glucse In 37.5 Gm Tube PO PRN PRN Hypoglycemia Protocol Dextrose 1,000 mls @ 100 mls/hr 04/14/25 20:21 Dextrose 5% 1,000 Ml IVPB PRN PRN Hypoglycemia Protocol Insulin Aspart 2 - 5 units 04/15/25 08:00 04/16/25 16:43 Insulin Aspart (*Bkc) 100 Units/Ml SUB-Q Not Given TIDWM COUNT INCLUDES [facility] Protocol Insulin Aspart 5 units 04/15/25 08:30 04/16/25 16:43 Insulin Aspart (*Bkc) 100 Units/Ml SUB-Q Not Given TIDWM DOYLE Insulin Glargine 16 units 04/15/25 21:00 04/16/25 20:28 Insulin Glargine (*Bkc) 100 Units/Ml SUB-Q 16 units HS DOYLE Administration Magnesium Oxide 400 mg 04/15/25 09:00 04/16/25 08:39 Magnesium Oxide 400 Mg Tablet PO 400 mg DAILY DOYLE Administration Metoprolol Succinate 25 mg 04/15/25 09:00 04/16/25 08:38 Metoprolol Succinate Ext Rel 25 Mg Tabcr PO 25 mg QAM DOYLE Administration Rosuvastatin Calcium 20 mg 04/15/25 21:00 04/16/25 20:29 Rosuvastatin 20 Mg Tablet PO 20 mg QHS DOYLE Administration Sacubitril/Valsartan 1 tab 04/16/25 21:00 04/16/25 20:29 Sacubitril/Valsartan 12-13 Mg Tablet PO 1 tab Q12HR DOYLE Administration Sitagliptin Phosphate 100 mg 04/15/25 09:00 04/16/25 08:39 Sitagliptin Phosphate 100 Mg Tablet PO 100 mg QAM DOYLE Administration Venlafaxine HCl 150 mg 04/15/25 09:00 04/16/25 08:39 Venlafaxine Hcl Xr 75 Mg Cap.Er.24h PO 150 mg DAILY DOYLE Administration Radiology Results: ITS Impressions Chest X-Ray 04/14/25 17:31 IMPRESSION: 1. Significant cardiomegaly and atherosclerotic aorta. 2. Congestive changes of lung bases with small left pleural effusion and blunting of right costophrenic angle. Labs Labs: Laboratory Results - last 24 hr 04/16/25 04/16/25 04/16/25 07:24 11:27 15:37 WBC RBC Hgb Hct MCV MCH MCHC RDW Plt Count MPV Sodium Potassium Chloride Carbon Dioxide Anion Gap BUN Creatinine Estim Creat Clear Calc Estimated GFR Glucose POC Capillary Glucose 198 H 274 H 89 Hemoglobin A1c Calcium Magnesium 04/16/25 04/17/25 04/17/25 20:00 04:29 06:47 WBC 10.3 H RBC 4.23 Hgb 13.1 Hct 40.5 MCV 95.7 MCH 31.0 MCHC 32.3 RDW 13.9 Plt Count 337 MPV 10.1 Sodium 135 L Potassium 3.7 Chloride 99 Carbon Dioxide 30 Anion Gap 6 BUN 31 H Creatinine 1.41 H Estim Creat Clear Calc 29 Estimated GFR 36 L Glucose 205 H POC Capillary Glucose 235 H 215 H Hemoglobin A1c 8.3 H Calcium 8.8 Magnesium 2.1 Quality VTE Prophylaxis VTE prophylaxis: mechanical ordered (SCDs) Hospitalist MIPS Advance Care Plan I have confirmed that the patient's Advanced Care Plan is present, code status is documented, or surrogate decision maker is listed in patient medical record.: Yes Medication Reconciliation I have utilized all available resources to obtain, update and review the patients current medications (includes all prescriptions, OTC, herbals, cannabis, and nutritional supplements).: Yes
[2025-04-17] MEDS: INSULIN ASPART (*BKC) 100 UNITS/ML SUB-Q ×5 (08:41→16:43)
[2025-04-17] MEDS: VENLAFAXINE HCL XR 75 MG CAP.ER.24H 150 MG PO (08:42)
[2025-04-17] MEDS: CLOPIDOGREL BISULFATE 75 MG TABLET PO (08:42)
[2025-04-17] MEDS: MAGNESIUM OXIDE 400 MG TABLET PO (08:42)
[2025-04-17] MEDS: SACUBITRIL/VALSARTAN 12-13 MG TABLET 1 TAB PO (09:55)
[2025-04-17] MEDS: METOPROLOL SUCCINATE EXT REL 25 MG TABCR PO (09:55)
[2025-04-17] MEDS: EMPAGLIFLOZIN 10 MG TABLET PO (09:55)
--- NOTE | 2025-04-17 09:57 | P.PNCA_ITS ---
Progress Note: A&P Assessment and Plan (1) Congestive heart failure: Code(s): I50.9 - Heart failure, unspecified Status: Acute (2) Coronary artery disease: Code(s): I25.10 - Atherosclerotic heart disease of [place] coronary artery without angina pectoris Status: Acute Plan 79-year-old woman with CAD (STEMI sp LAD PCI 01/2025), chronic systolic heart failure (biventricular failure; LVEF 20-25% who refuse LifeVest but is considering ICD), post PCI atrial fibrillation which has since resolved, insulin-dependent diabetes, history of lower GI bleed associated with Eliquis, history of CVA, and history of pulmonary embolism presents with orthopnea and shortness of breath Acute on chronic systolic heart failure (biventricular failure; LVEF 20-25%) -at this time discontinue Entresto and Jardiance due to low blood pressure. -discontinue IV Lasix which was held this morning due to low blood pressure. Start Lasix 20 mg p.o. starting tomorrow -continue Toprol-XL 25 mg daily -discontinue Entresto given low blood pressure acute kidney injury. Coronary artery disease status post PCI -patient has allergy to aspirin. -continue Plavix and statin Hyperlipidemia -continue continue high-intensity statin rosuvastatin 20 mg daily. -acute kidney injury: Most likely this is secondary to low blood pressure. Therefore discontinue Entresto and Farxiga. Transition Lasix from IV to p.o. starting tomorrow. Subjective Date/time seen: 04/17/25 09:57 Interval history: Cardiology follow-up visit for CHF, cardiomyopathy Date of service 04/16/2025: Continues to feel shortness of breath today. Complains of fatigue. Otherwise does not have any complaints. Date of service 04/17/2025: Sitting comfortably in bed. On room air. Shortness of breath much improved. Shows chronic cough unchanged from before. Blood pressure is low today Review of Systems Review of Systems: All systems reviewed & are unremarkable except as noted in HPI and below Cardiovascular: Cardiovascular: Reports as per HPI Respiratory: Respiratory: Reports as per HPI Exam Const: General: comfortable HENMT: Mouth: Yes moist mucous membranes Eyes: EOM: EOMs intact bilaterally Neck: Neck: normal visual inspection Other: JVD positive Resp: Effort & Inspection: normal respiratory effort Auscultation: rales bilateral 1/[address] Cardio: Rate: regular rate Rhythm: regular rhythm Heart sounds: Murmur heart sound present Neuro: Speech: normal speech Extrem: General: no pedal edema Objective Data Vital Signs Vital Signs: Vital Signs - 24 hr 04/16/25 10:00 04/16/25 11:41 04/16/25 12:00 Temperature 36.4 C Pulse Rate 91 89 89 Respiratory Rate 18 Blood Pressure 89/58 L Pulse Oximetry 100 Oxygen Delivery 04/16/25 14:00 04/16/25 15:51 04/16/25 16:00 Temperature 36.2 C L Pulse Rate 89 91 77 Respiratory Rate 20 Blood Pressure 85/61 L Pulse Oximetry 99 Oxygen Delivery 04/16/25 17:41 04/16/25 19:49 04/16/25 20:00 Temperature 36.8 C Pulse Rate 91 93 Respiratory Rate 21 H Blood Pressure 109/91 H Pulse Oximetry 99 Oxygen Delivery Room Air 04/16/25 20:00 04/16/25 21:48 04/16/25 23:39 Temperature Pulse Rate 97 Respiratory Rate Blood Pressure Pulse Oximetry 98 Oxygen Delivery Room Air Room Air 04/17/25 00:00 04/17/25 00:00 04/17/25 03:43 Temperature 36.4 C Pulse Rate 93 94 Respiratory Rate 24 H Blood Pressure 84/54 L Pulse Oximetry 95 Oxygen Delivery Room Air 04/17/25 04:00 04/17/25 04:00 04/17/25 06:00 Temperature 36.6 C Pulse Rate 78 86 88 Respiratory Rate 20 Blood Pressure 86/51 L Pulse Oximetry 97 Oxygen Delivery 04/17/25 07:41 Temperature 36.3 C L Pulse Rate 95 Respiratory Rate 18 Blood Pressure 96/69 L Pulse Oximetry 93 Oxygen Delivery Intake/Output Intake/Output: Intake & Output 04/14/25 04/15/25 04/16/25 04/17/25 23:59 23:59 23:59 23:59 Intake Total 1550 2090 782 Output Total 1400 1600 490 Balance 150 490 292 Meds/Results Medications: Active Medications Generic Name Dose Route Start Last Admin Trade Name Freq PRN Reason Stop Dose Admin Acetaminophen 650 mg 04/14/25 18:11 Acetaminophen 325 Mg Tablet PO Q4H PRN Mild Pain (1-3) or Fever Calcium Carbonate 200 mg 04/14/25 20:18 Calcium Carbonate (Tums) 500 Mg (200 Mg Elemental) PO Q6H PRN Indigestion Clopidogrel Bisulfate 75 mg 04/15/25 09:00 04/17/25 08:42 Clopidogrel Bisulfate 75 Mg Tablet PO 75 mg DAILY DOYLE Administration Dextrose 12.5 gm 04/14/25 20:21 Dextrose 50% 25 Gm/50 Ml Syringe IV PUSH PRN PRN Hypoglycemia Protocol Empagliflozin 10 mg 04/15/25 09:00 04/17/25 09:55 Empagliflozin 10 Mg Tablet PO 10 mg DAILY DOYLE Administration Furosemide 40 mg 04/15/25 09:00 04/16/25 08:45 Furosemide Inj 40 Mg/4 Ml Vial IV PUSH 40 mg On Hold: 04/17/25 07:35 DAILY DOYLE Administration Glucagon 1 mg 04/14/25 20:21 Glucagon For Inj 1 Mg Vial IM PRN PRN Hypoglycemia Protocol Glucose 15 gm 04/14/25 20:21 Glucose Oral Gel 15 Gm Of Glucse In 37.5 Gm Tube PO PRN PRN Hypoglycemia Protocol Dextrose 1,000 mls @ 100 mls/hr 04/14/25 20:21 Dextrose 5% 1,000 Ml IVPB PRN PRN Hypoglycemia Protocol Insulin Aspart 2 - 5 units 04/15/25 08:00 04/17/25 08:41 Insulin Aspart (*Bkc) 100 Units/Ml SUB-Q 3 units TIDWM DOYLE Administration Protocol Insulin Aspart 5 units 04/15/25 08:30 04/17/25 08:41 Insulin Aspart (*Bkc) 100 Units/Ml SUB-Q 5 units TIDWM DOYLE Administration Insulin Glargine 16 units 04/15/25 21:00 04/16/25 20:28 Insulin Glargine (*Bkc) 100 Units/Ml SUB-Q 16 units HS DOYLE Administration Magnesium Oxide 400 mg 04/15/25 09:00 04/17/25 08:42 Magnesium Oxide 400 Mg Tablet PO 400 mg DAILY DOYLE Administration Metoprolol Succinate 25 mg 04/15/25 09:00 04/17/25 09:55 Metoprolol Succinate Ext Rel 25 Mg Tabcr PO 25 mg QAM DOYLE Administration Rosuvastatin Calcium 20 mg 04/15/25 21:00 04/16/25 20:29 Rosuvastatin 20 Mg Tablet PO 20 mg QHS DOYLE Administration Sacubitril/Valsartan 1 tab 04/16/25 21:00 04/17/25 09:55 Sacubitril/Valsartan 12-13 Mg Tablet PO 1 tab Q12HR DOYLE Administration Sitagliptin Phosphate 100 mg 04/15/25 09:00 04/17/25 09:55 Sitagliptin Phosphate 100 Mg Tablet PO 100 mg QAM DOYLE Administration Venlafaxine HCl 150 mg 04/15/25 09:00 04/17/25 08:42 Venlafaxine Hcl Xr 75 Mg Cap.Er.24h PO 150 mg DAILY DOYLE Administration Radiology Results: ITS Impressions Chest X-Ray 04/14/25 17:31 IMPRESSION: 1. Significant cardiomegaly and atherosclerotic aorta. 2. Congestive changes of lung bases with small left pleural effusion and blunting of right costophrenic angle. Labs Labs: Laboratory Results - last 24 hr 04/16/25 04/16/25 04/16/25 11:27 15:37 20:00 WBC RBC Hgb Hct MCV MCH MCHC RDW Plt Count MPV Sodium Potassium Chloride Carbon Dioxide Anion Gap BUN Creatinine Estim Creat Clear Calc Estimated GFR Glucose POC Capillary Glucose 274 H 89 235 H Hemoglobin A1c Calcium Magnesium 04/17/25 04/17/25 04/17/25 04:29 06:47 08:40 WBC 10.3 H RBC 4.23 Hgb 13.1 Hct 40.5 MCV 95.7 MCH 31.0 MCHC 32.3 RDW 13.9 Plt Count 337 MPV 10.1 Sodium 135 L Potassium 3.7 Chloride 99 Carbon Dioxide 30 Anion Gap 6 BUN 31 H Creatinine 1.41 H Estim Creat Clear Calc 29 Estimated GFR 36 L Glucose 205 H POC Capillary Glucose 215 H 280 H Hemoglobin A1c 8.3 H Calcium 8.8 Magnesium 2.1
[2025-04-17 15:55] LABS: Anion Gap 8 mmol/L (4-12); Blood Urea Nitrogen 29 mg/dL (7-17); Calcium 9.1 mg/dL (8.4-10.2); Carbon Dioxide 27 mmol/L (22-30); Chloride 100 mmol/L (98-107); Estimated CRCL calculation 28 ml/min; Estimated Glomerular Filt Rate 34; Glucose 167 mg/dL (65-110); Potassium 4.1 mmol/L (3.4-5.0); Sodium 135 mmol/L (137-145)
[2025-04-17] MEDS: INSULIN GLARGINE (*BKC) 100 UNITS/ML 16 UNITS SUB-Q (21:05)
[2025-04-17] MEDS: ROSUVASTATIN 20 MG TABLET PO (21:06)
[2025-04-18] VITALS (20 sets, daily range): BP systolic 80–115; BP diastolic 43–89; PULSE 76–99; RESP 16–24; TEMP 36.4–36.8; O2SAT 92–100
[2025-04-18 04:35] LABS: Hematocrit 42.4 % (37.0-47.0); Hemoglobin 13.5 g/dL (12.0-15.0); Mean Corpuscular HGB Conc 31.8 g/dl (32-36); Mean Corpuscular Hemoglobin 30.8 pg (26-34); Mean Corpuscular Volume 96.8 fl (80-100); Platelet Count Result 327 k/mm3 (150-375); Red Blood Count 4.38 M/mm3 (4.2-5.4); White Blood Count 9.1 K/mm3 (4.5-10.0)
[2025-04-18 04:54] LABS: Anion Gap 5 mmol/L (4-12); Blood Urea Nitrogen 28 mg/dL (7-17); Calcium 9.0 mg/dL (8.4-10.2); Carbon Dioxide 29 mmol/L (22-30); Chloride 101 mmol/L (98-107); Estimated CRCL calculation 33 ml/min; Estimated Glomerular Filt Rate 43; Glucose 161 mg/dL (65-110); Magnesium 2.3 mg/dL (1.6-2.3); Potassium 4.1 mmol/L (3.4-5.0); Sodium 135 mmol/L (137-145)
[2025-04-18] MEDS: CLOPIDOGREL BISULFATE 75 MG TABLET PO (08:44)
[2025-04-18] MEDS: MAGNESIUM OXIDE 400 MG TABLET PO (08:45)
[2025-04-18] MEDS: INSULIN ASPART (*BKC) 100 UNITS/ML SUB-Q ×4 (08:45→17:18)
[2025-04-18] MEDS: FUROSEMIDE 20 MG TABLET PO (08:45)
[2025-04-18] MEDS: VENLAFAXINE HCL XR 75 MG CAP.ER.24H 150 MG PO (08:45)
[2025-04-18] MEDS: METOPROLOL SUCCINATE EXT REL 25 MG TABCR PO (08:45)
--- NOTE | 2025-04-18 11:23 | P.PNCA_ITS ---
Progress Note: A&P Assessment and Plan (1) Congestive heart failure: Code(s): I50.9 - Heart failure, unspecified Status: Acute (2) Coronary artery disease: Code(s): I25.10 - Atherosclerotic heart disease of [place] coronary artery without angina pectoris Status: Acute Plan 79-year-old woman with CAD (STEMI sp LAD PCI 01/2025), chronic systolic heart failure (biventricular failure; LVEF 20-25% who refuse LifeVest but is considering ICD), post PCI atrial fibrillation which has since resolved, insulin-dependent diabetes, history of lower GI bleed associated with Eliquis, history of CVA, and history of pulmonary embolism presents with orthopnea and shortness of breath Acute on chronic systolic heart failure (biventricular failure; LVEF 20-25%) -continue Lasix p.o. and Toprol XL. -both Farxiga and Entresto discontinued due to low blood pressure and acute kidney injury. Coronary artery disease status post PCI -continue statin and Plavix. Patient has allergy to aspirin. Hyperlipidemia -continue continue rosuvastatin 20 mg daily -acute kidney injury: Most likely this is secondary to low blood pressure. Both Entresto and Farxiga discontinue. Kidney function improved. Subjective Date/time seen: 04/18/25 11:23 Interval history: Cardiology follow-up visit for CHF, cardiomyopathy Date of service 04/16/2025: Continues to feel shortness of breath today. Complains of fatigue. Otherwise does not have any complaints. Date of service 04/17/2025: Sitting comfortably in bed. On room air. Shortness of breath much improved. Shows chronic cough unchanged from before. Blood pressure is low today Date of service 04/18/2025: Resting comfortably in bed. She is orthostatic. On room air. Some shortness of breath on exertion. Blood pressure remains low Review of Systems Review of Systems: All systems reviewed & are unremarkable except as noted in HPI and below Cardiovascular: Cardiovascular: Reports as per HPI Respiratory: Respiratory: Reports as per HPI Exam Const: General: comfortable HENMT: Mouth: Yes moist mucous membranes Eyes: EOM: EOMs intact bilaterally Neck: Neck: normal visual inspection Other: JVD positive Resp: Effort & Inspection: normal respiratory effort Auscultation: rales bilateral 1/[address] up Cardio: Rate: regular rate Rhythm: regular rhythm Heart sounds: Murmur heart sound present Neuro: Speech: normal speech Extrem: General: no pedal edema Objective Data Vital Signs Vital Signs: Vital Signs - 24 hr 04/17/25 11:32 04/17/25 12:00 04/17/25 14:00 Temperature 36.7 C Pulse Rate 83 87 Respiratory Rate 20 Blood Pressure 88/56 L Pulse Oximetry 99 Oxygen Delivery Room Air 04/17/25 14:00 04/17/25 14:26 04/17/25 15:58 Temperature 36.4 C Pulse Rate 89 83 Respiratory Rate 22 H Blood Pressure 86/56 L Pulse Oximetry 98 Oxygen Delivery Room Air 04/17/25 16:00 04/17/25 17:59 04/17/25 19:51 Temperature Pulse Rate 86 89 Respiratory Rate Blood Pressure Pulse Oximetry Oxygen Delivery Room Air 04/17/25 20:00 04/17/25 20:00 04/17/25 21:30 Temperature 36.4 C Pulse Rate 95 99 98 Respiratory Rate 16 Blood Pressure 83/49 L Pulse Oximetry 97 Oxygen Delivery 04/17/25 23:49 04/18/25 00:00 04/18/25 00:00 Temperature 36.5 C Pulse Rate 87 88 Respiratory Rate 16 Blood Pressure 97/53 L Pulse Oximetry 95 Oxygen Delivery Room Air 04/18/25 03:56 04/18/25 04:00 04/18/25 04:00 Temperature 36.4 C Pulse Rate 95 96 Respiratory Rate 18 Blood Pressure 84/50 L Pulse Oximetry 100 Oxygen Delivery Room Air 04/18/25 05:32 04/18/25 08:00 04/18/25 08:00 Temperature 36.4 C Pulse Rate 91 89 89 Respiratory Rate 16 Blood Pressure 115/89 Pulse Oximetry 99 Oxygen Delivery 04/18/25 08:45 04/18/25 09:11 04/18/25 09:11 Temperature Pulse Rate 89 89 92 Respiratory Rate 24 H Blood Pressure 98/59 L 94/65 L Pulse Oximetry 96 96 Oxygen Delivery 04/18/25 09:11 04/18/25 10:00 04/18/25 10:17 Temperature Pulse Rate 97 76 Respiratory Rate Blood Pressure 85/47 L 95/61 L Pulse Oximetry 98 Oxygen Delivery Intake/Output Intake/Output: Intake & Output 04/15/25 04/16/25 04/17/25 04/18/25 23:59 23:59 23:59 23:59 Intake Total 1550 2090 1262 1158 Output Total 1400 1600 1465 Balance 150 490 -203 1158 Meds/Results Medications: Active Medications Generic Name Dose Route Start Last Admin Trade Name Freq PRN Reason Stop Dose Admin Acetaminophen 650 mg 04/14/25 18:11 Acetaminophen 325 Mg Tablet PO Q4H PRN Mild Pain (1-3) or Fever Calcium Carbonate 200 mg 04/14/25 20:18 Calcium Carbonate (Tums) 500 Mg (200 Mg Elemental) PO Q6H PRN Indigestion Clopidogrel Bisulfate 75 mg 04/15/25 09:00 04/18/25 08:44 Clopidogrel Bisulfate 75 Mg Tablet PO 75 mg DAILY DOYLE Administration Dextrose 12.5 gm 04/14/25 20:21 Dextrose 50% 25 Gm/50 Ml Syringe IV PUSH PRN PRN Hypoglycemia Protocol Furosemide 40 mg 04/15/25 09:00 04/16/25 08:45 Furosemide Inj 40 Mg/4 Ml Vial IV PUSH 40 mg On Hold: 04/17/25 07:35 DAILY DOYLE Administration Furosemide 20 mg 04/18/25 09:00 04/18/25 08:45 Furosemide 20 Mg Tablet PO 20 mg DAILY DOYLE Administration Glucagon 1 mg 04/14/25 20:21 Glucagon For Inj 1 Mg Vial IM PRN PRN Hypoglycemia Protocol Glucose 15 gm 04/14/25 20:21 Glucose Oral Gel 15 Gm Of Glucse In 37.5 Gm Tube PO PRN PRN Hypoglycemia Protocol Dextrose 1,000 mls @ 100 mls/hr 04/14/25 20:21 Dextrose 5% 1,000 Ml IVPB PRN PRN Hypoglycemia Protocol Insulin Aspart 2 - 5 units 04/15/25 08:00 04/18/25 08:43 Insulin Aspart (*Bkc) 100 Units/Ml SUB-Q Not Given TIDWM DOYLE Protocol Insulin Aspart 5 units 04/15/25 08:30 04/18/25 08:45 Insulin Aspart (*Bkc) 100 Units/Ml SUB-Q 5 units TIDWM DOYLE Administration Insulin Glargine 16 units 04/15/25 21:00 04/17/25 21:05 Insulin Glargine (*Bkc) 100 Units/Ml SUB-Q 16 units HS DOYLE Administration Magnesium Oxide 400 mg 04/15/25 09:00 04/18/25 08:45 Magnesium Oxide 400 Mg Tablet PO 400 mg DAILY DOYLE Administration Metoprolol Succinate 25 mg 04/15/25 09:00 04/18/25 08:45 Metoprolol Succinate Ext Rel 25 Mg Tabcr PO 25 mg QAM DOYLE Administration Rosuvastatin Calcium 20 mg 04/15/25 21:00 04/17/25 21:06 Rosuvastatin 20 Mg Tablet PO 20 mg QHS DOYLE Administration Sitagliptin Phosphate 100 mg 04/15/25 09:00 04/18/25 08:45 Sitagliptin Phosphate 100 Mg Tablet PO 100 mg QAM DOYLE Administration Venlafaxine HCl 150 mg 04/15/25 09:00 04/18/25 08:45 Venlafaxine Hcl Xr 75 Mg Cap.Er.24h PO 150 mg DAILY DOYLE Administration Radiology Results: ITS Impressions Chest X-Ray 04/14/25 17:31 IMPRESSION: 1. Significant cardiomegaly and atherosclerotic aorta. 2. Congestive changes of lung bases with small left pleural effusion and blunting of right costophrenic angle. Labs Labs: Laboratory Results - last 24 hr 04/17/25 04/17/25 04/17/25 11:21 15:29 15:46 WBC RBC Hgb Hct MCV MCH MCHC RDW Plt Count MPV Sodium 135 L Potassium 4.1 Chloride 100 Carbon Dioxide 27 Anion Gap 8 BUN 29 H Creatinine 1.47 H Estim Creat Clear Calc 28 Estimated GFR 34 L Glucose 167 H POC Capillary Glucose 232 H 150 H Calcium 9.1 Magnesium 04/17/25 04/18/25 04/18/25 20:49 04:12 07:18 WBC 9.1 RBC 4.38 Hgb 13.5 Hct 42.4 MCV 96.8 MCH 30.8 MCHC 31.8 L RDW 13.6 Plt Count 327 MPV 10.1 Sodium 135 L Potassium 4.1 Chloride 101 Carbon Dioxide 29 Anion Gap 5 BUN 28 H Creatinine 1.20 H Estim Creat Clear Calc 33 Estimated GFR 43 L Glucose 161 H POC Capillary Glucose 148 H 183 H Calcium 9.0 Magnesium 2.3 Quality VTE Prophylaxis VTE prophylaxis: mechanical ordered (SCDs)
--- NOTE | 2025-04-18 13:32 | PM.IMPN2 ---
Assessment and Plan Assessment and Plan (1) Acute on chronic diastolic CHF (congestive heart failure): Code(s): I50.33 - Acute on chronic diastolic (congestive) heart failure Status: Acute Assessment and Plan: Cardiology following, appreciate recommendations --Stopped lasix 40mg IVP daily, cardiology staring lasix 20mg po daily --Entresto 04/17 BID & Jardiance 10mg daily on hold --Planning outpatient ICD (2) Ischemic cardiomyopathy: Code(s): I25.5 - Ischemic cardiomyopathy Status: Chronic Assessment and Plan: Treatment of CHF as noted (3) QT prolongation: Code(s): R94.31 - Abnormal electrocardiogram [ECG] [EKG] Status: Acute Assessment and Plan: Avoid QTc prolonging medications (4) HTN (hypertension): Qualifiers: Hypertension type: primary hypertension Qualified Code(s): I10 - Essential (primary) hypertension Code(s): I10 - Essential (primary) hypertension Status: Acute (5) Paroxysmal atrial fibrillation: Code(s): I48.0 - Paroxysmal atrial fibrillation Status: Acute (6) Type 2 diabetes mellitus treated with insulin: Code(s): E11.9 - Type 2 diabetes mellitus without complications; Z79.4 - FPC (current) use of insulin Status: Acute Assessment and Plan: Home meds: Lantus 16 units daily, Sitagliptin 100mg, Jardiance 10mg --Continue Lantus 16, Added lispro 5 TID, SSI Blood sugars reviewed (7) Hypotension: Code(s): I95.9 - Hypotension, unspecified Status: Resolved Assessment and Plan: Asymptomatic Cardiology adjusting entresto and lasix as noted for CHF --Check orthostatic VS daily --Fall precautions. PT OT (8) AMNA (acute kidney injury): Code(s): N17.9 - Acute kidney failure, unspecified Status: Acute Assessment and Plan: Creatinine 1.15<1.4 Continue to monitor with diuresis Time Spent With Patient Time with patient: 15 - 25 minutes Subjective Date/time seen: 04/18/25 13:32 Interval history: No overnight events. Breathing has improved. Blood pressure still lowish. Review of Systems Review of Systems: All systems reviewed & are unremarkable except as noted in HPI and below Exam Narrative: General - Awake and alert. No acute distress Eyes - PERRLA, EOM intact ENT - No thrush, No erythema Neck - No noticeable or palpable swelling Cardiovascular - RRR no m/r/g, no JVD Lungs: Clear to auscultation, No wheezing, no use of accessory muscles or crackles Skin - Skin warm and dry, no wounds or rashes Abdomen - Normal bowel sounds, abdomen soft and nontender Extremities - No edema, cyanosis or clubbing Musculoskeletal - 5/5 strength, normal range of motion, no swollen or erythematous joints. Neurological ? Alert and oriented x 3, CN 2-12 grossly intact. Psych: Normal mood and affect Objective Data Vital Signs Vital Signs: Vital Signs - 24 hr 04/17/25 14:00 04/17/25 14:00 04/17/25 14:26 Temperature Pulse Rate 89 Respiratory Rate Blood Pressure Pulse Oximetry Oxygen Delivery Room Air Room Air 04/17/25 15:58 04/17/25 16:00 04/17/25 17:59 Temperature 97.6 F Pulse Rate 83 86 89 Respiratory Rate 22 H Blood Pressure 86/56 L Pulse Oximetry 98 Oxygen Delivery 04/17/25 19:51 04/17/25 20:00 04/17/25 20:00 Temperature 97.6 F Pulse Rate 95 99 Respiratory Rate 16 Blood Pressure 83/49 L Pulse Oximetry 97 Oxygen Delivery Room Air 04/17/25 21:30 04/17/25 23:49 04/18/25 00:00 Temperature 97.7 F Pulse Rate 98 87 Respiratory Rate 16 Blood Pressure 97/53 L Pulse Oximetry 95 Oxygen Delivery Room Air 04/18/25 00:00 04/18/25 03:56 04/18/25 04:00 Temperature 97.6 F Pulse Rate 88 95 Respiratory Rate 18 Blood Pressure 84/50 L Pulse Oximetry 100 Oxygen Delivery Room Air 04/18/25 04:00 04/18/25 05:32 04/18/25 08:00 Temperature 97.6 F Pulse Rate 96 91 89 Respiratory Rate 16 Blood Pressure 115/89 Pulse Oximetry 99 Oxygen Delivery 04/18/25 08:00 04/18/25 08:45 04/18/25 09:11 Temperature Pulse Rate 89 89 89 Respiratory Rate 24 H Blood Pressure 98/59 L Pulse Oximetry 96 Oxygen Delivery 04/18/25 09:11 04/18/25 09:11 04/18/25 10:00 Temperature Pulse Rate 92 97 76 Respiratory Rate Blood Pressure 94/65 L 85/47 L Pulse Oximetry 96 98 Oxygen Delivery 04/18/25 10:17 04/18/25 11:41 04/18/25 12:00 Temperature 97.6 F Pulse Rate 87 90 Respiratory Rate 20 Blood Pressure 95/61 L 84/55 L Pulse Oximetry 100 Oxygen Delivery 04/18/25 12:02 Temperature Pulse Rate 87 Respiratory Rate Blood Pressure 92/58 L Pulse Oximetry 100 Oxygen Delivery Intake/Output Intake/Output: Intake & Output 04/15/25 04/16/25 04/17/25 04/18/25 23:59 23:59 23:59 23:59 Intake Total 1550 2090 1262 1398 Output Total 1400 1600 1465 Balance 150 490 -203 1398 Meds/Results Medications: Active Medications Generic Name Dose Route Start Last Admin Trade Name Freq PRN Reason Stop Dose Admin Acetaminophen 650 mg 04/14/25 18:11 Acetaminophen 325 Mg Tablet PO Q4H PRN Mild Pain (1-3) or Fever Calcium Carbonate 200 mg 04/14/25 20:18 Calcium Carbonate (Tums) 500 Mg (200 Mg Elemental) PO Q6H PRN Indigestion Clopidogrel Bisulfate 75 mg 04/15/25 09:00 04/18/25 08:44 Clopidogrel Bisulfate 75 Mg Tablet PO 75 mg DAILY DOYLE Administration Dextrose 12.5 gm 04/14/25 20:21 Dextrose 50% 25 Gm/50 Ml Syringe IV PUSH PRN PRN Hypoglycemia Protocol Furosemide 40 mg 04/15/25 09:00 04/16/25 08:45 Furosemide Inj 40 Mg/4 Ml Vial IV PUSH 40 mg On Hold: 04/17/25 07:35 DAILY DOYLE Administration Furosemide 20 mg 04/18/25 09:00 04/18/25 08:45 Furosemide 20 Mg Tablet PO 20 mg DAILY DOYLE Administration Glucagon 1 mg 04/14/25 20:21 Glucagon For Inj 1 Mg Vial IM PRN PRN Hypoglycemia Protocol Glucose 15 gm 04/14/25 20:21 Glucose Oral Gel 15 Gm Of Glucse In 37.5 Gm Tube PO PRN PRN Hypoglycemia Protocol Dextrose 1,000 mls @ 100 mls/hr 04/14/25 20:21 Dextrose 5% 1,000 Ml IVPB PRN PRN Hypoglycemia Protocol Insulin Aspart 2 - 5 units 04/15/25 08:00 04/18/25 11:54 Insulin Aspart (*Bkc) 100 Units/Ml SUB-Q 2 units TIDWM [facility] Administration Protocol Insulin Aspart 5 units 04/15/25 08:30 04/18/25 11:54 Insulin Aspart (*Bkc) 100 Units/Ml SUB-Q 5 units TIDWM DOYLE Administration Insulin Glargine 16 units 04/15/25 21:00 04/17/25 21:05 Insulin Glargine (*Bkc) 100 Units/Ml SUB-Q 16 units HS DOYLE Administration Magnesium Oxide 400 mg 04/15/25 09:00 04/18/25 08:45 Magnesium Oxide 400 Mg Tablet PO 400 mg DAILY DOYLE Administration Metoprolol Succinate 25 mg 04/15/25 09:00 04/18/25 08:45 Metoprolol Succinate Ext Rel 25 Mg Tabcr PO 25 mg QAM [facility] Administration Rosuvastatin Calcium 20 mg 04/15/25 21:00 04/17/25 21:06 Rosuvastatin 20 Mg Tablet PO 20 mg QHS DOYLE Administration Sitagliptin Phosphate 100 mg 04/15/25 09:00 04/18/25 08:45 Sitagliptin Phosphate 100 Mg Tablet PO 100 mg QAM [facility] Administration Venlafaxine HCl 150 mg 04/15/25 09:00 04/18/25 08:45 Venlafaxine Hcl Xr 75 Mg Cap.Er.24h PO 150 mg DAILY DOYLE Administration Radiology Results: ITS Impressions Chest X-Ray 04/18/25 13:05 IMPRESSION: 1. Mild interstitial pulmonary edema persists. Labs Labs: Laboratory Results - last 24 hr 04/17/25 04/17/25 04/17/25 15:29 15:46 20:49 WBC RBC Hgb Hct MCV MCH MCHC RDW Plt Count MPV Sodium 135 L Potassium 4.1 Chloride 100 Carbon Dioxide 27 Anion Gap 8 BUN 29 H Creatinine 1.47 H Estim Creat Clear Calc 28 Estimated GFR 34 L Glucose 167 H POC Capillary Glucose 150 H 148 H Calcium 9.1 Magnesium 04/18/25 04/18/25 04/18/25 04:12 07:18 11:13 WBC 9.1 RBC 4.38 Hgb 13.5 Hct 42.4 MCV 96.8 MCH 30.8 MCHC 31.8 L RDW 13.6 Plt Count 327 MPV 10.1 Sodium 135 L Potassium 4.1 Chloride 101 Carbon Dioxide 29 Anion Gap 5 BUN 28 H Creatinine 1.20 H Estim Creat Clear Calc 33 Estimated GFR 43 L Glucose 161 H POC Capillary Glucose 183 H 216 H Calcium 9.0 Magnesium 2.3 Quality VTE Prophylaxis VTE prophylaxis: mechanical ordered (SCDs) Hospitalist MIPS Advance Care Plan I have confirmed that the patient's Advanced Care Plan is present, code status is documented, or surrogate decision maker is listed in patient medical record.: Yes Medication Reconciliation I have utilized all available resources to obtain, update and review the patients current medications (includes all prescriptions, OTC, herbals, cannabis, and nutritional supplements).: Yes
[2025-04-18] MEDS: ROSUVASTATIN 20 MG TABLET PO (20:48)
[2025-04-18] MEDS: INSULIN GLARGINE (*BKC) 100 UNITS/ML 16 UNITS SUB-Q (20:48)
[2025-04-19] VITALS (11 sets, daily range): BP systolic 84–112; BP diastolic 52–73; PULSE 84–94; RESP 16–20; TEMP 36.3–36.8; O2SAT 92–99
[2025-04-19 04:28] LABS: Hematocrit 38.9 % (37.0-47.0); Hemoglobin 12.3 g/dL (12.0-15.0); Immature Granulocyte Percent A 0.2 % (0-0.5); Lymphocytes Absolute Auto 2.59 K/mm3 (0.9-3.2); Mean Corpuscular HGB Conc 31.6 g/dl (32-36); Mean Corpuscular Hemoglobin 30.4 pg (26-34); Mean Corpuscular Volume 96.0 fl (80-100); Nucleated Red Blood Cells Absolute Auto 0.000 K/mm3 (0.0-0.012); Nucleated Red Blood Cells Perc 0.0 % (0.0-0.2); Platelet Count Result 308 k/mm3 (150-375); Red Blood Count 4.05 M/mm3 (4.2-5.4); White Blood Count 9.1 K/mm3 (4.5-10.0)
[2025-04-19 06:02] LABS: Alanine Aminotransferase 13 U/L (6-35); Albumin Level 3.5 g/dL (3.5-5.1); Alkaline Phosphatase 74 U/L (38-126); Anion Gap 3 mmol/L (4-12); Aspartate Amino Transferase 31 U/L (14-36); Bilirubin,Total 0.4 mg/dL (0.2-1.3); Blood Urea Nitrogen 25 mg/dL (7-17); Calcium 8.9 mg/dL (8.4-10.2); Carbon Dioxide 33 mmol/L (22-30); Chloride 100 mmol/L (98-107); Estimated CRCL calculation 33 ml/min; Estimated Glomerular Filt Rate 43; Glucose 157 mg/dL (65-110); Magnesium 2.2 mg/dL (1.6-2.3); Potassium 3.5 mmol/L (3.4-5.0); Sodium 136 mmol/L (137-145); Total Protein 6.5 g/dL (6.3-8.2)
[2025-04-19] MEDS: VENLAFAXINE HCL XR 75 MG CAP.ER.24H 150 MG PO (09:20)
[2025-04-19] MEDS: CLOPIDOGREL BISULFATE 75 MG TABLET PO (09:20)
[2025-04-19] MEDS: FUROSEMIDE 20 MG TABLET PO (09:20)
[2025-04-19] MEDS: MAGNESIUM OXIDE 400 MG TABLET PO (09:20)
[2025-04-19] MEDS: METOPROLOL SUCCINATE EXT REL 25 MG TABCR PO (09:20)
[2025-04-19] MEDS: INSULIN ASPART (*BKC) 100 UNITS/ML SUB-Q ×3 (09:22→17:53)
[2025-04-19] MEDS: FUROSEMIDE INJ 40 MG/4 ML VIAL 20 MG IV PUSH (13:34)
--- NOTE | 2025-04-19 14:24 | P.PNIM_ITS ---
Assessment and Plan Assessment and Plan (1) Acute on chronic diastolic CHF (congestive heart failure): Code(s): I50.33 - Acute on chronic diastolic (congestive) heart failure Status: Acute Assessment and Plan: Cardiology following, appreciate recommendations --Stopped lasix 40mg IVP daily, cardiology staring lasix 20mg po daily --Entresto 12/ BID & Jardiance 10mg daily on hold --Planning outpatient ICD Will give 20 mg IV Lasix today (2) Ischemic cardiomyopathy: Code(s): I25.5 - Ischemic cardiomyopathy Status: Chronic Assessment and Plan: Treatment of CHF as noted (3) QT prolongation: Code(s): R94.31 - Abnormal electrocardiogram [ECG] [EKG] Status: Acute Assessment and Plan: Avoid QTc prolonging medications (4) HTN (hypertension): Qualifiers: Hypertension type: primary hypertension Qualified Code(s): I10 - Essential (primary) hypertension Code(s): I10 - Essential (primary) hypertension Status: Acute (5) Paroxysmal atrial fibrillation: Code(s): I48.0 - Paroxysmal atrial fibrillation Status: Acute (6) Type 2 diabetes mellitus treated with insulin: Code(s): E11.9 - Type 2 diabetes mellitus without complications; 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 PT OT (8) AMNA (acute kidney injury): Code(s): N17.9 - Acute kidney failure, unspecified Status: Acute Assessment and Plan: Creatinine 1.15<1.4 Continue to monitor with diuresis Time Spent With Patient Time with patient: 15 - 25 minutes Subjective Date/time seen: 04/19/25 14:24 Interval history: No overnight events. She feels a little short of breath today. Denies any other symptoms. No chest pain. No cough. Blood pressure trend reviewed. Chest x-ray findings reviewed with the patient. Review of Systems Review of Systems: All systems reviewed & are unremarkable except as noted in HPI and below Exam Narrative: General - Awake and alert. No acute distress Eyes - PERRLA, EOM intact ENT - No thrush, No erythema Neck - No noticeable or palpable swelling Cardiovascular - RRR no m/r/g, no JVD Lungs: Basal crepitation, No wheezing, no use of accessory muscles or crackles Skin - Skin warm and dry, no wounds or rashes Abdomen - Normal bowel sounds, abdomen soft and nontender Extremities - No edema, cyanosis or clubbing Musculoskeletal - 5/5 strength, normal range of motion, no swollen or erythematous joints. Neurological ? Alert and oriented x 3, CN 2-12 grossly intact. Psych: Normal mood and affect Objective Data Vital Signs Vital Signs: Vital Signs - 24 hr 04/18/25 15:54 04/18/25 16:00 04/18/25 18:00 Temperature 97.5 F L Pulse Rate 89 93 99 Respiratory Rate 20 Blood Pressure 100/62 Pulse Oximetry 97 Oxygen Delivery Fraction of Inspired Oxygen 04/18/25 18:16 04/18/25 20:00 04/18/25 20:00 Temperature 98.3 F Pulse Rate 93 93 Respiratory Rate 20 20 Blood Pressure 88/58 L 84/63 L Pulse Oximetry 93 93 Oxygen Delivery Room Air Fraction of Inspired Oxygen 04/18/25 20:00 04/18/25 21:04 04/18/25 23:34 Temperature Pulse Rate 93 96 96 Respiratory Rate 20 Blood Pressure Pulse Oximetry 93 Oxygen Delivery Room Air Fraction of Inspired Oxygen 98 04/18/25 23:34 04/18/25 23:46 04/19/25 02:00 Temperature 98.3 F Pulse Rate 98 93 91 Respiratory Rate 20 Blood Pressure 80/43 L Pulse Oximetry 92 Oxygen Delivery Fraction of Inspired Oxygen 04/19/25 04:00 04/19/25 04:00 04/19/25 04:00 Temperature 98.2 F Pulse Rate 84 84 86 Respiratory Rate 20 20 Blood Pressure 84/59 L Pulse Oximetry 92 93 Oxygen Delivery Room Air Fraction of Inspired Oxygen 98 04/19/25 06:00 04/19/25 08:00 04/19/25 08:00 Temperature 97.6 F Pulse Rate 90 86 Respiratory Rate 18 Blood Pressure 104/61 100/70 Pulse Oximetry 96 Oxygen Delivery Fraction of Inspired Oxygen 04/19/25 08:00 04/19/25 09:20 04/19/25 09:37 Temperature Pulse Rate 88 94 Respiratory Rate Blood Pressure 112/71 Pulse Oximetry Oxygen Delivery Fraction of Inspired Oxygen 04/19/25 09:37 04/19/25 10:00 04/19/25 12:00 Temperature 97.8 F Pulse Rate 89 87 Respiratory Rate 18 Blood Pressure 106/57 L 110/61 Pulse Oximetry 99 Oxygen Delivery Fraction of Inspired Oxygen 04/19/25 12:00 Temperature Pulse Rate 90 Respiratory Rate Blood Pressure Pulse Oximetry Oxygen Delivery Fraction of Inspired Oxygen Intake/Output Intake/Output: Intake & Output 04/16/25 04/17/25 04/18/25 04/19/25 23:59 23:59 23:59 23:59 Intake Total 2090 1262 1938 240 Output Total 1600 1465 900 Balance 490 203 1938 -660 Meds/Results Medications: Active Medications Generic Name Dose Route Start Last Admin Trade Name Freq PRN Reason Stop Dose Admin Acetaminophen 650 mg 04/14/25 18:11 Acetaminophen 325 Mg Tablet PO Q4H PRN Mild Pain (1-3) or Fever Calcium Carbonate 200 mg 04/14/25 20:18 Calcium Carbonate (Tums) 500 Mg (200 Mg Elemental) PO Q6H PRN Indigestion Clopidogrel Bisulfate 75 mg 04/15/25 09:00 04/19/25 09:20 Clopidogrel Bisulfate 75 Mg Tablet PO 75 mg DAILY DOYLE Administration Dextrose 12.5 gm 04/14/25 20:21 Dextrose 50% 25 Gm/50 Ml Syringe IV PUSH PRN PRN Hypoglycemia Protocol Furosemide 40 mg 04/15/25 09:00 04/16/25 08:45 Furosemide Inj 40 Mg/4 Ml Vial IV PUSH 40 mg On Hold: 04/17/25 07:35 DAILY DOYLE Administration Furosemide 20 mg 04/18/25 09:00 04/19/25 09:20 Furosemide 20 Mg Tablet PO 20 mg DAILY DOYLE Administration Glucagon 1 mg 04/14/25 20:21 Glucagon For Inj 1 Mg Vial IM PRN PRN Hypoglycemia Protocol Glucose 15 gm 04/14/25 20:21 Glucose Oral Gel 15 Gm Of Glucse In 37.5 Gm Tube PO PRN PRN Hypoglycemia Protocol Dextrose 1,000 mls @ 100 mls/hr 04/14/25 20:21 Dextrose 5% 1,000 Ml IVPB PRN PRN Hypoglycemia Protocol Insulin Aspart 2 - 5 units 04/15/25 08:00 04/19/25 12:06 Insulin Aspart (*Bkc) 100 Units/Ml SUB-Q Not Given TIDWM DOYLE Protocol Insulin Aspart 5 units 04/15/25 08:30 04/19/25 12:06 Insulin Aspart (*Bkc) 100 Units/Ml SUB-Q 5 units TIDWM DOYLE Administration Insulin Glargine 16 units 04/15/25 21:00 04/18/25 20:48 Insulin Glargine (*Bkc) 100 Units/Ml SUB-Q 16 units HS DOYLE Administration Magnesium Oxide 400 mg 04/15/25 09:00 04/19/25 09:20 Magnesium Oxide 400 Mg Tablet PO 400 mg DAILY DOYLE Administration Metoprolol Succinate 25 mg 04/15/25 09:00 04/19/25 09:20 Metoprolol Succinate Ext Rel 25 Mg Tabcr PO 25 mg QAM DOYLE Administration Rosuvastatin Calcium 20 mg 04/15/25 21:00 04/18/25 20:48 Rosuvastatin 20 Mg Tablet PO 20 mg QHS DOYLE Administration Sitagliptin Phosphate 100 mg 04/15/25 09:00 04/19/25 09:20 Sitagliptin Phosphate 100 Mg Tablet PO 100 mg QAM DOYLE Administration Venlafaxine HCl 150 mg 04/15/25 09:00 04/19/25 09:20 Venlafaxine Hcl Xr 75 Mg Cap.Er.24h PO 150 mg DAILY DOYLE Administration Radiology Results: ITS Impressions Chest X-Ray 04/18/25 13:05 IMPRESSION: 1. Mild interstitial pulmonary edema persists. Labs Labs: Laboratory Results - last 24 hr 04/18/25 04/18/25 04/19/25 16:11 20:18 03:54 WBC 9.1 RBC 4.05 L Hgb 12.3 Hct 38.9 MCV 96.0 MCH 30.4 MCHC 31.6 L RDW 13.6 Plt Count 308 MPV 10.3 Immature Gran % (Auto) 0.2 Neut % (Auto) 54.3 Lymph % (Auto) 28.5 [place] % (Auto) 12.8 H Eos % (Auto) 3.6 Baso % (Auto) 0.6 Lymph # (Auto) 2.59 [place] # (Auto) 1.2 H Eos # (Auto) 0.3 Baso # (Auto) 0.1 Abs Immat Gran (auto) 0.02 Absolute Neuts (auto) 4.9 Absolute Nucleated RBC 0.000 Nucleated RBC % 0.0 Sodium 136 L Potassium 3.5 Chloride 100 Carbon Dioxide 33 H Anion Gap 3 L BUN 25 H Creatinine 1.21 H Estim Creat Clear Calc 33 Estimated GFR 43 L Glucose 157 H POC Capillary Glucose 134 H 170 H Calcium 8.9 Magnesium 2.2 Total Bilirubin 0.4 AST 31 ALT 13 Alkaline Phosphatase 74 Total Protein 6.5 Albumin 3.5 04/19/25 04/19/25 07:27 11:35 WBC RBC Hgb Hct MCV MCH MCHC RDW Plt Count MPV Immature Gran % (Auto) Neut % (Auto) Lymph % (Auto) [place] % (Auto) Eos % (Auto) Baso % (Auto) Lymph # (Auto) [place] # (Auto) Eos # (Auto) Baso # (Auto) Abs Immat Gran (auto) Absolute Neuts (auto) Absolute Nucleated RBC Nucleated RBC % Sodium Potassium Chloride Carbon Dioxide Anion Gap BUN Creatinine Estim Creat Clear Calc Estimated GFR Glucose POC Capillary Glucose 172 H 175 H Calcium Magnesium Total Bilirubin AST ALT Alkaline Phosphatase Total Protein Albumin Quality VTE Prophylaxis VTE prophylaxis: mechanical ordered (SCDs) Hospitalist MIPS Advance Care Plan I have confirmed that the patient's Advanced Care Plan is present, code status is documented, or surrogate decision maker is listed in patient medical record.: Yes Medication Reconciliation I have utilized all available resources to obtain, update and review the patients current medications (includes all prescriptions, OTC, herbals, cannabis, and nutritional supplements).: Yes
--- NOTE | 2025-04-19 18:40 | PC.NURSE ---
On 04/19/25, the AUDITOR APPRAISER, Telly Ortez, provided care and completed [facility] documentation on this patient. I have reviewed the AUDITOR APPRAISER's documentation and agree with the findings.
[2025-04-19] MEDS: ROSUVASTATIN 20 MG TABLET PO (20:31)
[2025-04-19] MEDS: INSULIN GLARGINE (*BKC) 100 UNITS/ML 16 UNITS SUB-Q (20:32)
[2025-04-20 04:32] VITALS: BP 107/59; PULSE 82; RESP 16; TEMP 36.3; O2SAT 99
[2025-04-20 05:22] LABS: Hematocrit 38.4 % (37.0-47.0); Hemoglobin 12.1 g/dL (12.0-15.0); Mean Corpuscular HGB Conc 31.5 g/dl (32-36); Mean Corpuscular Hemoglobin 30.3 pg (26-34); Mean Corpuscular Volume 96.2 fl (80-100); Platelet Count Result 281 k/mm3 (150-375); Red Blood Count 3.99 M/mm3 (4.2-5.4); White Blood Count 8.8 K/mm3 (4.5-10.0)
[2025-04-20 05:31] LABS: Anion Gap 5 mmol/L (4-12); Blood Urea Nitrogen 26 mg/dL (7-17); Calcium 8.7 mg/dL (8.4-10.2); Carbon Dioxide 28 mmol/L (22-30); Chloride 101 mmol/L (98-107); Estimated CRCL calculation 38 ml/min; Estimated Glomerular Filt Rate 49; Glucose 150 mg/dL (65-110); Magnesium 2.1 mg/dL (1.6-2.3); Potassium 3.2 mmol/L (3.4-5.0); Sodium 134 mmol/L (137-145)
[2025-04-20 08:00] VITALS: BP 100/53; PULSE 87; RESP 20; TEMP 36.2; O2SAT 97
--- NOTE | 2025-04-20 08:40 | P.PNCA_ITS ---
Progress Note: A&P Assessment and Plan (1) Congestive heart failure: Code(s): I50.9 - Heart failure, unspecified Status: Acute (2) Coronary artery disease: Code(s): I25.10 - Atherosclerotic heart disease of [place] coronary artery without angina pectoris Status: Acute Plan 79-year-old woman with CAD (STEMI sp LAD PCI 01/2025), chronic systolic heart failure (biventricular failure; LVEF 20-25% who refuse LifeVest but is considering ICD), post PCI atrial fibrillation which has since resolved, insulin-dependent diabetes, history of lower GI bleed associated with Eliquis, history of CVA, and history of pulmonary embolism presents with orthopnea and shortness of breath Acute on chronic systolic heart failure (biventricular failure; LVEF 20-25%) -continue Lasix p.o. and Toprol XL. -both Farxiga and Entresto discontinued due to low blood pressure and acute kidney injury. Coronary artery disease status post PCI -continue statin and Plavix. Patient has allergy to aspirin. Hyperlipidemia -continue continue rosuvastatin 20 mg daily -acute kidney injury: Most likely this is secondary to low blood pressure. Both Entresto and Farxiga discontinue. Kidney function improved. Subjective Date/time seen: 04/20/25 08:40 Interval history: Cardiology follow-up visit for CHF, cardiomyopathy Date of service 04/16/2025: Continues to feel shortness of breath today. Complains of fatigue. Otherwise does not have any complaints. Date of service 04/17/2025: Sitting comfortably in bed. On room air. Shortness of breath much improved. Shows chronic cough unchanged from before. Blood pressure is low today Date of service 04/18/2025: Resting comfortably in bed. She is orthostatic. On room air. Some shortness of breath on exertion. Blood pressure remains low Date of service 04/20/2025: Review of Systems Review of Systems: All systems reviewed & are unremarkable except as noted in HPI and below Cardiovascular: Cardiovascular: Reports as per HPI Respiratory: Respiratory: Reports as per HPI Exam Const: General: comfortable HENMT: Mouth: Yes moist mucous membranes Eyes: EOM: EOMs intact bilaterally Neck: Neck: normal visual inspection Other: JVD positive Resp: Effort & Inspection: normal respiratory effort Auscultation: rales bilateral 1/[address] up Cardio: Rate: regular rate Rhythm: regular rhythm Heart sounds: Murmur heart sound present Neuro: Speech: normal speech Extrem: General: no pedal edema Objective Data Vital Signs Vital Signs: Vital Signs - 24 hr 04/19/25 09:20 04/19/25 09:37 04/19/25 09:37 Temperature Pulse Rate 94 Respiratory Rate Blood Pressure 112/71 106/57 L Pulse Oximetry 04/19/25 10:00 04/19/25 12:00 04/19/25 12:00 Temperature 36.6 C Pulse Rate 89 87 90 Respiratory Rate 18 Blood Pressure 110/61 Pulse Oximetry 99 04/19/25 16:00 04/19/25 17:15 04/19/25 20:04 Temperature 36.3 C L 36.5 C 36.3 C L Pulse Rate 87 92 93 Respiratory Rate 16 16 18 Blood Pressure 102/73 95/68 L 91/52 L Pulse Oximetry 96 97 93 04/20/25 04:32 04/20/25 08:00 Temperature 36.3 C L 36.2 C L Pulse Rate 82 87 Respiratory Rate 16 20 Blood Pressure 107/59 L 100/53 L Pulse Oximetry 99 97 Intake/Output Intake/Output: Intake & Output 04/17/25 04/18/25 04/19/25 04/20/25 23:59 23:59 23:59 23:59 Intake Total 1262 1938 1440 250 Output Total 1465 2550 Balance -203 1938 -1110 250 Meds/Results Medications: Active Medications Generic Name Dose Route Start Last Admin Trade Name Freq PRN Reason Stop Dose Admin Acetaminophen 650 mg 04/14/25 18:11 Acetaminophen 325 Mg Tablet PO Q4H PRN Mild Pain (1-3) or Fever Calcium Carbonate 200 mg 04/14/25 20:18 Calcium Carbonate (Tums) 500 Mg (200 Mg Elemental) PO Q6H PRN Indigestion Clopidogrel Bisulfate 75 mg 04/15/25 09:00 04/19/25 09:20 Clopidogrel Bisulfate 75 Mg Tablet PO 75 mg DAILY DOYLE Administration Dextrose 12.5 gm 04/14/25 20:21 Dextrose 50% 25 Gm/50 Ml Syringe IV PUSH PRN PRN Hypoglycemia Protocol Furosemide 20 mg 04/18/25 09:00 04/19/25 09:20 Furosemide 20 Mg Tablet PO 20 mg DAILY DOYLE Administration Glucagon 1 mg 04/14/25 20:21 Glucagon For Inj 1 Mg Vial IM PRN PRN Hypoglycemia Protocol Glucose 15 gm 04/14/25 20:21 Glucose Oral Gel 15 Gm Of Glucse In 37.5 Gm Tube PO PRN PRN Hypoglycemia Protocol Dextrose 1,000 mls @ 100 mls/hr 04/14/25 20:21 Dextrose 5% 1,000 Ml IVPB PRN PRN Hypoglycemia Protocol Insulin Aspart 2 - 5 units 04/15/25 08:00 04/19/25 17:53 Insulin Aspart (*Bkc) 100 Units/Ml SUB-Q Not Given TIDWM DOYLE Protocol Insulin Aspart 5 units 04/15/25 08:30 04/19/25 17:53 Insulin Aspart (*Bkc) 100 Units/Ml SUB-Q 5 units TIDWM DOYLE Administration Insulin Glargine 16 units 04/15/25 21:00 04/19/25 20:32 Insulin Glargine (*Bkc) 100 Units/Ml SUB-Q 16 units HS DOYLE Administration Magnesium Oxide 400 mg 04/15/25 09:00 04/19/25 09:20 Magnesium Oxide 400 Mg Tablet PO 400 mg DAILY DOYLE Administration Metoprolol Succinate 25 mg 04/15/25 09:00 04/19/25 09:20 Metoprolol Succinate Ext Rel 25 Mg Tabcr PO 25 mg QAM DOYLE Administration Rosuvastatin Calcium 20 mg 04/15/25 21:00 04/19/25 20:31 Rosuvastatin 20 Mg Tablet PO 20 mg QHS DOYLE Administration Sitagliptin Phosphate 100 mg 04/15/25 09:00 04/19/25 09:20 Sitagliptin Phosphate 100 Mg Tablet PO 100 mg QAM DOYLE Administration Venlafaxine HCl 150 mg 04/15/25 09:00 04/19/25 09:20 Venlafaxine Hcl Xr 75 Mg Cap.Er.24h PO 150 mg DAILY DOYLE Administration Radiology Results: ITS Impressions Chest X-Ray 04/18/25 13:05 IMPRESSION: 1. Mild interstitial pulmonary edema persists. Labs Labs: Laboratory Results - last 24 hr 04/19/25 04/19/25 04/19/25 11:35 16:29 20:02 WBC RBC Hgb Hct MCV MCH MCHC RDW Plt Count MPV Sodium Potassium Chloride Carbon Dioxide Anion Gap BUN Creatinine Estim Creat Clear Calc Estimated GFR Glucose POC Capillary Glucose 175 H 191 H 221 H Calcium Magnesium 04/20/25 04/20/25 04:53 07:36 WBC 8.8 RBC 3.99 L Hgb 12.1 Hct 38.4 MCV 96.2 MCH 30.3 MCHC 31.5 L RDW 13.5 Plt Count 281 MPV 10.3 Sodium 134 L Potassium 3.2 L Chloride 101 Carbon Dioxide 28 Anion Gap 5 BUN 26 H Creatinine 1.07 H Estim Creat Clear Calc 38 Estimated GFR 49 L Glucose 150 H POC Capillary Glucose 168 H Calcium 8.7 Magnesium 2.1 Quality VTE Prophylaxis VTE prophylaxis: mechanical ordered (SCDs)
[2025-04-20] MEDS: POTASSIUM CHLORIDE 20 MEQ ER TABLET 40 MEQ PO (08:44)
[2025-04-20] MEDS: CLOPIDOGREL BISULFATE 75 MG TABLET PO (08:45)
[2025-04-20] MEDS: MAGNESIUM OXIDE 400 MG TABLET PO (08:45)
[2025-04-20] MEDS: VENLAFAXINE HCL XR 75 MG CAP.ER.24H 150 MG PO (08:45)
[2025-04-20 08:46] VITALS: PULSE 80; RESP 20; O2SAT 97
[2025-04-20] MEDS: INSULIN ASPART (*BKC) 100 UNITS/ML SUB-Q ×3 (08:46→11:14)
[2025-04-20 08:49] VITALS: PULSE 80
[2025-04-20] MEDS: METOPROLOL SUCCINATE EXT REL 25 MG TABCR PO (08:49)
--- NOTE | 2025-04-20 09:32 | PM.DS ---
DS: Admitting Diagnosis Discharge Date 04/20/2025 Admitting Diagnosis Shortness of DS: Discharge Diagnosis Discharge Diagnosis (1) Acute on chronic diastolic CHF (congestive heart failure): Code(s): I50.33 - Acute on chronic diastolic (congestive) heart failure Status: Acute (2) Ischemic cardiomyopathy: Code(s): I25.5 - Ischemic cardiomyopathy Status: Chronic (3) QT prolongation: Code(s): R94.31 - Abnormal electrocardiogram [ECG] [EKG] Status: Acute (4) HTN (hypertension): Qualifiers: Hypertension type: primary hypertension Qualified Code(s): I10 - Essential (primary) hypertension Code(s): I10 - Essential (primary) hypertension Status: Acute (5) Paroxysmal atrial fibrillation: Code(s): I48.0 - Paroxysmal atrial fibrillation Status: Acute (6) Type 2 diabetes mellitus treated with insulin: Code(s): E11.9 - Type 2 diabetes mellitus without complications; Z79.4 - intermediate (current) use of insulin Status: Acute (7) Hypotension: Code(s): I95.9 - Hypotension, unspecified Status: Resolved (8) AMNA (acute kidney injury): Code(s): N17.9 - Acute kidney failure, unspecified Status: Acute DS: Summary Hospital Course Hospital Course: # Acute on chronic diastolic CHF (congestive heart failure): Cardiology following, appreciate recommendations --Stopped lasix 40mg IVP daily, cardiology staring lasix 20mg po daily --Entresto 12/13 BID & Jardiance 10mg daily on hold --Planning outpatient ICD Will increase Lasix to 40 mg daily at discharge Entresto held due to hypotension. Follow-up as an outpatient basis # Ischemic cardiomyopathy: Treatment of CHF as noted # QT prolongation: Avoid QTc prolonging medications # HTN (hypertension): # Paroxysmal atrial fibrillation: # Type 2 diabetes mellitus treated with insulin: Home meds: Lantus 16 units daily, Sitagliptin 100mg, Jardiance 10mg --Continue Lantus 16, Added lispro 5 TID, SSI Blood sugars reviewed # Hypotension: Asymptomatic Cardiology adjusting entresto and lasix as noted for CHF --Check orthostatic VS daily --Fall precautions. PT OT and home health recommended # AMNA (acute kidney injury): Creatinine 1.15<1.4 Continue to monitor with diuresis Time Spent with Patient Time attestation: Total time spent providing and/or coordinating discharge services: 45 minutes Exam Narrative: General - Awake and alert. No acute distress Eyes - PERRLA, EOM intact ENT - No thrush, No erythema Neck - No noticeable or palpable swelling Cardiovascular - RRR no m/r/g, no JVD Lungs: Diminished breath sounds bilaterally No wheezing, no use of accessory muscles or crackles Skin - Skin warm and dry, no wounds or rashes Abdomen - Normal bowel sounds, abdomen soft and nontender Extremities - No edema, cyanosis or clubbing Musculoskeletal - 5/5 strength, normal range of motion, no swollen or erythematous joints. Neurological ? Alert and oriented x 3, CN 2-12 grossly intact. Psych: Normal mood and affect DS: Data Data Completed and Pending Labs on day of discharge: Labs from last 24 hours 04/20/25 04/20/25 04/19/25 07:36 04:53 20:02 WBC 8.8 RBC 3.99 L Hgb 12.1 Hct 38.4 MCV 96.2 MCH 30.3 MCHC 31.5 L RDW 13.5 Plt Count 281 MPV 10.3 Sodium 134 L Potassium 3.2 L Chloride 101 Carbon Dioxide 28 Anion Gap 5 BUN 26 H Creatinine 1.07 H Estim Creat Clear Calc 38 Estimated GFR 49 L Glucose 150 H POC Capillary Glucose 168 H 221 H Calcium 8.7 Magnesium 2.1 04/19/25 04/19/25 16:29 11:35 WBC RBC Hgb Hct MCV MCH MCHC RDW Plt Count MPV Sodium Potassium Chloride Carbon Dioxide Anion Gap BUN Creatinine Estim Creat Clear Calc Estimated GFR Glucose POC Capillary Glucose 191 H 175 H Calcium Magnesium Imaging Radiologist's impression: ITS Impressions Chest X-Ray 04/14/25 17:31 IMPRESSION: 1. Significant cardiomegaly and atherosclerotic aorta. 2. Congestive changes of lung bases with small left pleural effusion and blunting of right costophrenic angle. Chest X-Ray 04/18/25 13:05 IMPRESSION: 1. Mild interstitial pulmonary edema persists. Discharge Plan Discharge Attending physician on discharge: Jesus Slade Consulting providers: Nata Montaño; Adam Brown Discharging Clinician: Jesus Slade Anticipated Discharge Date/Time: 04/20/25 09:34 Patient Disposition: Home with Home Health Service Activity: as tolerated Diet: heart healthy Discharge Instructions: Care Coordination: [facility] to follow patient after discharge. [facility] to call patient & arrange admission appointment. [facility] [phone] Patient Instructions: Antibiotic Form Patient Language: Hungarian Stand Alone Forms: General Discharge Information Follow-up/Referrals: Adam Brown MD [Physician, Cardiology] - 2 Weeks Hellen Jarquin PA-C [Primary Care Provider, Family Practice] - 1 Week Discharge Medications: New furosemide 40 mg Tablet 40 mg PO DAILY Qty: 30 0RF potassium chloride [Klor-Con M10] 10 mEq tablet,ER particles/crystals 10 meq PO DAILY Qty: 30 0RF Continued venlafaxine 150 mg capsule,extended release 24hr 150 mg PO DAILY Qty: 90 1RF Tradjenta 5 mg tablet 5 mg PO QAM Qty: 90 1RF Jardiance 10 mg tablet 10 mg PO DAILY Qty: 30 1RF insulin lispro [Humalog KwikPen Insulin] 100 unit/mL insulin pen 5 unit subcut TIDWMEAL MDD 40 Qty: 30 3RF Rx Instructions: 5 units premeal + Sliding scale insulin 150-200: 1 unit 201-250: 2 units 251-300: 3 units 301-350: 4 units 351-400: 5 units >401: 6 units (DME) FreeStyle James 3 Plus Sensor Device See Rx Instructions .Route Qty: 2 0RF Rx Instructions: change every 15 days insulin glargine [Basaglar KwikPen U-100 Insulin] 100 unit/mL (3 mL) insulin pen 20 unit subcut QPM Qty: 15 1RF (DME) pen needle, diabetic [Chante Pen Needle] 32 gauge x 5/32 needle See Rx Instructions .Route Qty: 400 1RF Rx Instructions: Use to administer insulin 4 times a day acetaminophen 500 mg tablet 500 mg PO Q6H PRN (Reason: fever or pain) (DME) FreeStyle James 3 [place] Misc See Rx Instructions .Route Qty: 1 0RF Rx Instructions: As directed magnesium oxide 400 mg (241.3 mg magnesium) tablet 400 mg PO DAILY Qty: 90 0RF Gvoke HypoPen 2-Pack 1 mg/0.2 mL auto-injector 1 mg subcut ONCE PRN (Reason: hypoglycemia) Qty: 0.4 1RF Rx Instructions: may repeat once after 15 minutes if no response glucose [Dex4 Glucose] 4 gram tablet,chewable 16 g PO Q15M PRN (Reason: hypoglycemia) Qty: 60 1RF Rx Instructions: until symptoms of low blood sugar are controlled metoprolol succinate [Toprol XL] 25 mg tablet extended release 24 hr 25 mg PO QAM Qty: 30 1RF Rx Instructions: increased by cardiology 02/12/25 clopidogrel 75 mg tablet 75 mg PO DAILY Qty: 30 0RF rosuvastatin 20 mg tablet 20 mg PO QHS Qty: 30 1RF Discontinued sacubitril-valsartan [Entresto] 24-26 mg tablet 1 tablet PO BID Date of admission: 04/15/25 07:52 Primary Care Provider: Hellen Jarquin Admitting Provider: Lenin Fox Attending physician on admission: Lenin Fox Condition: Stable
[2025-04-20] MEDS: FUROSEMIDE 40 MG TABLET PO (09:58)
== END 2025-04-20 15:00 | disposition home health service (06) | DRG 291 ==
LOC: ANHED 18:29 → ANHIMU 18:30 → ANH2MED 04-20 09:35 → ANHIMU 04-22 16:11
PROVIDERS: Internal Medicine; Nurse Practitioner Acute Care; Admitting Provider Family Medicine; Emergency Provider Emergency Medicine; PCP Physician Assistant Medical; Visit Provider Internal Medicine
DX: I11.0 Hypertensive heart disease with heart failure (principal); I50.23 Acute on chronic systolic (congestive) heart failure; N17.9 Acute kidney failure, unspecified; I25.5 Ischemic cardiomyopathy; I48.0 Paroxysmal atrial fibrillation; I95.1 Orthostatic hypotension; E83.42 Hypomagnesemia; K21.9 Gastro-esophageal reflux disease without esophagitis; E11.9 Type 2 diabetes mellitus without complications; I25.10 Atherosclerotic heart disease of native coronary artery without angina pectoris; E78.5 Hyperlipidemia, unspecified; R94.31 Abnormal electrocardiogram [ECG] [EKG]; F41.9 Anxiety disorder, unspecified; F32.A Depression, unspecified; Z20.822 Contact with and (suspected) exposure to COVID-19; I25.2 Old myocardial infarction; Z79.4 Long term (current) use of insulin; Z95.5 Presence of coronary angioplasty implant and graft; Z88.6 Allergy status to analgesic agent; Z87.19 Personal history of other diseases of the digestive system; Z86.73 Personal history of transient ischemic attack (TIA), and cerebral infarction without residual deficits; Z87.891 Personal history of nicotine dependence; Z86.711 Personal history of pulmonary embolism; Z79.02 Long term (current) use of antithrombotics/antiplatelets
CPT/HCPCS: 36415; 71045; 71046; 80048; 80053; 82948; 83036; 83735; 83880; 84484; 85025; 85027; 85610; 85730; 87637; 93005; 96374; 96376; 97110; 97161; 97165; 97530; 99285; A9270; G0378; J1815; J1938